=== PATIENT | male | born 1930 | race Asian ===

== ENCOUNTER 2017-04-29 18:04 | Inpatient (IN) | payer MEDICARE, BC ==
[2017-04-28 22:50] VITALS: RESP 20
[2017-04-29] VITALS (9 sets, daily range): BP systolic 48–141; BP diastolic 35–93; PULSE 71–101; RESP 0–23; TEMP 97.9; Ht 172.7 cm; Wt 63.4 kg
[~2017-04-29] VITALS: Ht 172.7 cm; Wt 63.4 kg
[~2017-04-29 18:04] MED LIST: ALLO100T PO; AMIODARONE 150 MG INJ ONE; AMLO-218 PO; AMOX250S25 PO; ASPI-664 PO; ATOR40TA68 PO; AZOP1OP10 OP; CARV6.25 PO; COLC0.6T6 PO; COMBIG5 OP; ETOMIDATE 20 MG INJ ONE; FLUT16SP24 NASAL; FOLI-49 PO; Hydrocodone Bit/Acetaminophen PO; ISOS30TA5 PO; LATA2.5D9 OP; LORA10TA3 PO; LOSA50TA6 PO; NA BICARBONATE 8.4% 50 ML SYG ONE; NEPH PO; PANT40TA3 PO; ROCURONIUM 50 MG INJ ONE; SEVE800T7 PO
[2017-04-29] MEDS ORDERED: ONDANSETRON 4 MG INJ IV STA (18:08)
[2017-04-29] MEDS ORDERED: CA CHLORIDE 10% 10 ML SYRINGE IV STA (18:08)
[2017-04-29] MEDS ORDERED: morphine 4 MG/ML VIAL IV STA (18:08)
[2017-04-29] MEDS ORDERED: NA BICARBONATE 8.4% 50 ML SYG IV STA (18:08)
[2017-04-29] MEDS ORDERED: AMIODARONE 900MG/D5W DRIP 500 ML IV STA ×2 (18:18→19:59)
[2017-04-29] MEDS ORDERED: AMIODARONE 150MG/D5W BOLUS IV* STA (18:18)
[2017-04-29] MEDS ORDERED: ETOMIDATE 20 MG INJ IV ONE (18:30)
[2017-04-29] MEDS ORDERED: DOXA2TAB PO (18:42)
[2017-04-29] MEDS ORDERED: TOPI50TA86 PO (18:42)
[2017-04-29] MEDS ORDERED: SODIUM CHLORIDE 0.9% 1L BAG IV* STA (19:35)
--- NOTE | 2017-04-29 19:55 | RADRPT ---
PROCEDURE: XR Chest. CLINICAL INDICATION: Chest pain. TECHNIQUE: Single frontal view of the chest. COMPARISON: 03/04/2015. FINDINGS: Cardiomegaly with atherosclerotic calcifications in the thoracic aorta. Left lung base retrocardiac opacity, suggesting atelectasis versus airspace disease versus pleural effusion, with central and le ft lower thorax transcutaneous cardiac pacing pads. No signs of pneumothorax are seen. The osseous s tructures and soft tissues are unremarkable. IMPRESSION: 1. Cardiomegaly. 2. Left retrocardiac opacity, suggesting atelectasis versus airspace disease versus pleural effusion . 3. Right lung is clear. RPTAT: [facility]U Physician Misael Date Time Electronically viewed and signed by Physician Misael on 04/29/2017 19:55 RS/
[2017-04-29 19:56] LABS: BASOPHILS % 0.1 % (0.0-2.0); EOSINOPHILS # 0.1 10^3/ul (0.0-0.5); EOSINOPHILS % 0.9 % (0.0-7.0); HEMATOCRIT 30.9 % (42.0-52.0); HEMOGLOBIN 9.7 g/dl (14.0-18.0); LYMPHOCYTES # 0.9 10^3/ul (0.8-2.9); LYMPHOCYTES % 10.7 % (15.0-51.0); MEAN CORPUSCULAR HEMOGLOBIN 33.3 pg (29.0-33.0); MEAN CORPUSCULAR HGB CONC 31.4 g/dl (32.0-37.0); MEAN CORPUSCULAR VOLUME 106.2 fl (82.0-101.0); MEAN PLATELET VOLUME 11.1 fl (7.4-10.4); MONOCYTE # 0.5 10^3/ul (0.3-0.9); MONOCYTES % 5.6 % (0.0-11.0); NEUTROPHIL # 6.7 10^3/ul (1.6-7.5); NEUTROPHILS % 82.1 % (39.0-77.0); PLATELET COUNT 101 10^3/UL (140-415); RED BLOOD COUNT 2.91 10^6/ul (4.70-6.10); WHITE BLOOD COUNT 8.2 10^3/ul (4.8-10.8)
[2017-04-29] MEDS ORDERED: ZOLPIDEM 5 MG TAB PO PRN (20:00)
[2017-04-29] MEDS ORDERED: NITROGLYCERIN (SL) 0.4 MG TAB SL PRN (20:00)
[2017-04-29] MEDS: SOD CHLORIDE 0.9% 1,000 ML IV SCH (20:00)
[2017-04-29] MEDS ORDERED: ACETAMINOPHEN 325 MG TAB PO PRN (20:00)
[2017-04-29] MEDS ORDERED: HYDROCODONE/APAP (5/325) TAB PO PRN (20:00)
[2017-04-29] MEDS ORDERED: BISACODYL (EC) 5 MG TAB PO PRN (20:00)
[2017-04-29] MEDS ORDERED: DOCUSATE SODIUM 100 MG CAP PO PRN (20:00)
[2017-04-29 20:14] LABS: ALBUMIN 3.7 g/dl (3.3-4.9); ALBUMIN/GLOBULIN RATIO 1.23; BILIRUBIN,INDIRECT 0.3 mg/dl (0-1.1); BILIRUBIN,TOTAL 0.3 mg/dl (0.2-1.3); CALCIUM 10.5 mg/dl (8.4-10.2); CREATININE 6.35 mg/dl (0.61-1.24); POTASSIUM 4.5 mmol/L (3.5-5.1); TOTAL PROTEIN 6.7 g/dl (6.1-8.1)
[2017-04-29 20:20] LABS: MAGNESIUM 1.9 mg/dl (1.7-2.5)
[2017-04-29 20:28] LABS: INR 0.98
[2017-04-29 20:29] LABS: PARTIAL THROMBOPLASTIN TIME 35.6 Sec (25.0-35.0)
[2017-04-29] MEDS ORDERED: CEFTRIAXONE 1 GM/50 ML (PMX) 50 ML IVPB ONE (20:30)
[2017-04-29] MEDS ORDERED: ASPIRIN 325 MG TAB PO ONE (20:30)
[2017-04-29] MEDS ORDERED: ASPIRIN 300 MG SUPP PR ONE (21:00)
[2017-04-29 22:28] LABS: AADO2 Arterial 557.5 mmHg (7.0-24.0); Allen Test ACCEPTAB; Arterial Base Excess -3.2 mmol/L (-3.0-3); Arterial COHb 0.3 % (0.0-3.0); Arterial Fraction of Oxyhgb 85.4 % (93.0-99.0); Arterial HCO3 27.5 mmol/L (22.0-26.0); Arterial MetHb 0.2 % (0.0-1.5); Arterial Total Hemglobin 11.4 g/dl (12.0-18.0); MODE MASK - NRB
--- NOTE | 2017-04-29 22:35 | RADRPT ---
PROCEDURE: CT ABDOMEN/PELVIS WITHOUT CONTRAST CLINICAL INDICATION: 87-year-old male with abdominal pain and vomiting. TECHNIQUE: The [facility] was performed [facility]. Direct axia l sections were obtained through the abdomen and pelvis without the use of intravenous contrast mate rial. Sagittal and coronal reformations were obtained. One or more of the following dose reduction t echniques were utilized: automated exposure control, adjustment of the mA and/or kV according to pat ient's size or use of iterative reconstruction technique. The images were reviewed on a PACS workst [employer]. CTD/vol = 8.1 mGy; Total Exam DLP = 472.4 mGy-cm. COMPARISON: None. FINDINGS: The inferior aspect of a median sternotomy is noted. Mild cardiomegaly is present. Coronary artery c alcifications are visualized. There are patchy airspace infiltrates within the right lung base. The re is left lower lobe consolidation with air bronchograms present. There is trace left pleural effus ion. There is minimal free fluid surrounding the right lobe of the liver. The liver has a normal siz e and contour without focal areas of abnormal density. No intrahepatic nor extrahepatic biliary duct al dilatation is seen. The gallbladder is distended and contains small calcified gallstone with diff use gallbladder wall thickening measuring up to 5.7 mm. The pancreas is atrophic but without areas o f abnormal attenuation. The spleen is identified and has a normal size without abnormal density. Th e adrenal glands are unremarkable. The kidneys are atrophic bilaterally. Bilateral renal cysts are p resent. The largest cyst on the right side is within the right mid kidney measures 3.8 x 3.9 cm in axial image 3- 84. There is a right lower pole renal cortical cyst measuring approximately 1.8 x 1.7 cm. There is a third right upper pole renal cyst measuring approximately 10 x 11 mm. The largest cy st on the left side is in the left mid kidney measuring approximately 3.1 x 3.0 cm on axial image 3- 66. There is an exophytic elongated left lower pole renal cyst measuring approximately 3.8 x 1.8 x 1 .6 cm. No hydroureteronephrosis nor nephroureterolithiasis is evident. The urinary bladder is contra cted with a diffusely thickened wall measuring up to 12 mm. There is no evidence for bowel obstructi on with retained stool in the rectosigmoid region. There appears to be smooth appearance to the colo n with loss of the haustral suggestive of chronic cathartic use. Small diverticula seen within the s igmoid colon without surrounding inflammatory changes. The appendix is distended with air but withou t abnormal thickening or surrounding inflammatory reaction. There is a right femoral venous line in place. The aortoiliac vessels are diffusely calcified and ectatic but without aneurysmal dilatation. Degenerative changes are present throughout the spine. IMPRESSION: 1. Status post median sternotomy with cardiomegaly. 2. Patchy airspace right lung base infiltrates. 3. Left lower lobe consolidation with air bronchograms and trace left pleural effusion. 4. Distended gallbladder with cholelithiasis and thickened gallbladder wall. 5. Minimal free fluid surrounding the right lobe of the liver. 6. Bilaterally atrophic kidneys with multiple cysts without obstructive uropathy. 7. Decompressed urinary bladder with thickened wall. 8. Minimal sigmoid diverticulosis. 9. Right femoral venous line. 10. Vascular calcifications. 11. Degenerative changes throughout the spine. .Vini Altamirano MD, MD Date Time Electronically viewed and signed by .Vini Altamirano MD, MD on 04/29/2017 22:35 .M/
--- NOTE | 2017-04-29 22:52 | QN ---
Documentation Comment Endotracheal Intubation by me: Pre assessment performed. Pre-oxygenation performed with 100% oxygen RSI: Performed w/o complication or hypoxic events. Medications as ordered. Blade: MAC 4 Glidescope ET Tube: 7.5 cm Depth: 22 at the lip Intubation confirmed by colorimetric CO2, equal breath sounds, quiet over the stomach. Chest x-ray pending. MAKENZIE CEE MD Apr 29, 2017 22:52
--- NOTE | 2017-04-29 22:59 | QN ---
Documentation Comment [id number] YENNY WINSTON MD Apr 29, 2017 22:59
[2017-04-29] MEDS: PROPOFOL 100 ML IV SCH (23:00)
[2017-04-29] MEDS ORDERED: NORepinephrine 8MG/250 ML (PMX 250 ML ONE (23:00)
[2017-04-29] MEDS ORDERED: NORepinephrine 8MG/250 ML (PMX 250 ML IV SCH (23:00)
--- NOTE | 2017-04-29 23:01 | ERA ---
ER Documentation Chief Complaint Date/Time DATE: 04/29/17 TIME: 22:53 Chief Complaint BROUGHT IN VIA EMS DUE TO V TACH ON MONITOR HPI Patient is an 87-year-old male with coronary disease dialysis who presents with chest pain as well as nausea and vomiting. He was brought in by ambulance. The paramedics said that he was in SVT and he was given 6 mg of adenosine which did not change his rhythm. He did have dialysis yesterday. Please note the history and physical exam is limited secondary to the patient's vomiting at this time. ROS All systems reviewed and are negative except as per history of present illness. Medications Home Meds Reported Medications Doxazosin Mesylate* (Doxazosin Mesylate*) 2 Mg Tablet, 2 MG PO DAILY, TAB 04/29/17 Topiramate* (Topiramate*) 50 Mg Tablet, 50 MG PO DAILY, TAB 04/29/17 Pantoprazole* (Protonix*) 40 Mg Tablet.dr, 40 MG PO DAILY, TAB 07/23/14 Losartan Potassium* (Losartan Potassium*) 50 Mg Tablet, 50 MG PO DAILY, TAB 07/23/14 Folic Acid* (Folic Acid*) 1 Mg Tablet, 1 MG PO DAILY, TAB 07/23/14 Discontinued Reported Medications Sevelamer Carbonate* (Renvela*) 800 Mg Tablet, 0.8 GM PO WITH MEALS, TAB 03/04/15 Multivit/Ca Carb/B Cmplx/Fa* (Manju-Manuela*) 1 Tab Tab, 1 TAB PO DAILY, TAB 03/04/15 Brinzolamide* (Azopt*) 1%-5 Ml Drops.susp, 1 DROP OP AFFECTED EYE(S) TID, BOTTLE 07/23/14 Brimonidine/Timolol* (Combigan*) 5 Ml Drops, 1 DROP OP AFFECTED EYE(S) BID, BOTTLE 07/23/14 Latanoprost (Xalatan) 2.5 Ml Drops, 1 DROP OP AFFECTED EYE(S) QHS 07/23/14 Aspirin* (Aspirin* (EC)) 81 Mg Tablet.dr, 81 MG PO DAILY, TAB 07/23/14 Colchicine* (Colcrys*) 0.6 Mg Tablet, 0.6 MG PO DAILY, TAB 07/23/14 Isosorbide Mononitrate* (Isosorbide Mononitrate*) 30 Mg Tab.er.24h, 30 MG PO DAILY, TAB 07/23/14 Carvedilol* (Coreg*) 6.25 Mg Tablet, 6.25 MG PO DAILY, TAB 07/23/14 Allopurinol* (Allopurinol*) 100 Mg Tablet, 100 MG PO DAILY, TAB 07/23/14 Atorvastatin* (Atorvastatin*) 40 Mg Tablet, 40 MG PO HS, TAB 07/23/14 Discontinued Scripts Amoxicillin/Clavulanate K* (Augmentin* Susp) 50 Mg/Ml Susp, 500 MG PO Q24H, #14 TAB Prov:DELLA DELUNA MD 03/07/15 Loratadine* (Loratadine*) 10 Mg Tablet, 10 MG PO DAILY, #30 TAB Prov:DELLA DELUNA MD 03/07/15 Fluticasone Propionate* (Flonase* Nasal) 50 Mcg/[place] - 16 Gm [place].susp, 1 SPRAY NASAL BID, #1 SPRAY (TO EACH NOSTRIL) Prov:DELLA DELUNA MD 03/07/15 [Hydrocodone Bit/Acetaminophen] 1 TAB TAB No Conflict Check, 1 TAB PO Q6H Y for MODERATE PAIN LEVEL 4-6, #30 TAB Prov:DELLA DELUNA MD 03/07/15 Amlodipine Besylate* (Norvasc*) 10 Mg Tablet, 10 MG PO BID, #120 TAB Prov:SHERIF PAK MD 07/24/14 Allergies Allergies: Coded Allergies: No Known Allergy (Verified , 04/29/17) PMhx/Soc Anesthesia Reaction: No Hx Neurological Disorder: No Hx Respiratory Disorders: No Hx Cardiac Disorders: Yes (CABG with stent placement; CAD) Hx Psychiatric Problems: No Hx Miscellaneous Medical Probl: Yes Hx Alcohol Use: No (occassionally a sip) Hx Substance Use: No Hx Tobacco Use: Yes ( 40 years ago) Smoking Status: Never smoker FmHx Unable to obtain Physical Exam Vitals Vital Signs Date Time Temp Pulse Resp B/P Pulse Ox O2 Delivery O2 Flow Rate FiO2 04/29/17 19:20 98.0 94 28 105/76 100 Non Rebreather 15.0 94 04/29/17 18:20 97.6 95 25 108/95 100 Non Rebreather 15.0 04/29/17 18:10 Non Rebreather 15 04/29/17 18:10 97.6 222 20 76/52 96 Physical Exam Const: Severe distress Head: Atraumatic Eyes: Normal Conjunctiva ENT: Normal External Ears, Nose and Mouth. Neck: Full range of motion..~ No meningismus. Resp: Clear to auscultation bilaterally Cardio: Tachycardic rate without murmur, tachycardia at 220 Abd: Soft, non tender, non distended. Normal bowel sounds Skin: Pale skin Back: No midline or flank tenderness Ext: No cyanosis, or edema Neur: Awake But confused Result Diagram: 04/29/17192904/29/171929 Results 24 hrs Laboratory Tests Test 04/29/17 19:30 White Blood Count 8.210^3/ul Red Blood Count 2.9110^6/ul Hemoglobin 9.7g/dl Hematocrit 30.9% Mean Corpuscular Volume 106.2fl Mean Corpuscular Hemoglobin 33.3pg Mean Corpuscular Hemoglobin Concent 31.4g/dl Red Cell Distribution Width 15.0% Platelet Count 15444^3/UL Mean Platelet Volume 11.1fl Neutrophils % 82.1% Lymphocytes % 10.7% Monocytes % 5.6% Eosinophils % 0.9% Basophils % 0.1% Nucleated Red Blood Cells % 0.0/100WBC Neutrophils # 6.710^3/ul Lymphocytes # 0.910^3/ul Monocytes # 0.510^3/ul Eosinophils # 0.110^3/ul Basophils # 0.010^3/ul Nucleated Red Blood Cells # 0.010^3/ul Prothrombin Time 13.0Sec Prothrombin Time Ratio 1.0 INR International Normalized Ratio 0.98 Activated Partial Thromboplast Time 35.6Sec Sodium Level 141mmol/L Potassium Level 4.5mmol/L Chloride Level 96mmol/L Carbon Dioxide Level 32mmol/L Anion Gap 18 Blood Urea Nitrogen 43mg/dl Creatinine 6.35mg/dl Glucose Level 136mg/dl Lactic Acid Level 4.1mmol/L Calcium Level 10.5mg/dl Magnesium Level 1.9mg/dl Total Bilirubin 0.3mg/dl Direct Bilirubin 0.00mg/dl Indirect Bilirubin 0.3mg/dl Aspartate Amino Transf (AST/SGOT) 151IU/L Alanine Aminotransferase (ALT/SGPT) 43IU/L Alkaline Phosphatase 90IU/L Troponin I 30.000ng/ml Total Protein 6.7g/dl Albumin 3.7g/dl Globulin 3.00g/dl Albumin/Globulin Ratio 1.23 Lipase 220U/L Current Medications Medications (Trade) Dose Ordered Sig/Hui Route PRN Reason Start Time Stop Time Status Last Admin Dose Admin Morphine Sulfate (morphine) 4 mg ONCE STAT IV 04/29/17 18:08 04/29/17 18:09 DC 04/29/17 19:58 Ondansetron HCl (Zofran Inj) 4 mg ONCE STAT IV 04/29/17 18:08 04/29/17 18:09 DC 04/29/17 19:58 Sodium Bicarbonate (Na Bicarb 8.4% Syg) 50 ml ONCE STAT IV 04/29/17 18:08 04/29/17 18:09 DC 04/29/17 19:52 Calcium Chloride (Ca Chloride 10% Syg) 1,000 mg ONCE STAT IV 04/29/17 18:08 04/29/17 18:09 DC 04/29/17 19:52 Etomidate (Amidate) 10 mg ONCE ONCE IV 04/29/17 18:30 04/29/17 18:31 DC 04/29/17 18:16 Amiodarone HCl 100 ml 100 ml ONCE STAT IV* 04/29/17 18:18 04/29/17 18:19 DC 04/29/17 18:18 Amiodarone HCl (Cordarone 900mg/ D5W Drip) 500 ml @ 0 mls/hr ONCE STAT IV 04/29/17 18:18 04/29/17 18:19 DC Procedures/MDM EKG #1 read by me: Rate/Rhythm: Ventricular tachycardia at a rate of 222 Intervals: Wide-complex QRS Impression: Ventricular tachycardia EKG #2 read by me: Rate/Rhythm: Sinus rhythm Intervals: Normal Impression: Successful cardioversion is patient now is in a sinus rhythm without ST elevations EKG #3 read by me: Rate/Rhythm: Regular rate and rhythm at a normal rate intervals: Normal Impression: No sign of ST elevations PROCEDURE: XR Chest. CLINICAL INDICATION: Chest pain. TECHNIQUE: Single frontal view of the chest. COMPARISON: 03/04/2015. FINDINGS: Cardiomegaly with atherosclerotic calcifications in the thoracic aorta. Left lung base retrocardiac opacity, suggesting atelectasis versus airspace disease versus pleural effusion, with central and left lower thorax transcutaneous cardiac pacing pads. No signs of pneumothorax are seen. The osseous structures and soft tissues are unremarkable. IMPRESSION: 1. Cardiomegaly. 2. Left retrocardiac opacity, suggesting atelectasis versus airspace disease versus pleural effusion. 3. Right lung is clear. RPTAT: [facility] Physician Misael Date Time Electronically viewed and signed by Physician Misael on 04/29/2017 19:55 PROCEDURE: CT ABDOMEN/PELVIS WITHOUT CONTRAST CLINICAL INDICATION: 87-year-old male with abdominal pain and vomiting. TECHNIQUE: The study was performed utilizing a [employer]T 64-slice CT scanner. Direct axial sections were obtained through the abdomen and pelvis without the use of intravenous contrast material. Sagittal and coronal reformations were obtained. One or more of the following dose reduction techniques were utilized: automated exposure control, adjustment of the mA and/ or kV according to patient's size or use of iterative reconstruction technique. The images were reviewed on a PACS workstation. CTD/vol = 8.1 mGy; Total Exam DLP = 472.4 mGy-cm. COMPARISON: None. FINDINGS: The inferior aspect of a median sternotomy is noted. Mild cardiomegaly is present. Coronary artery calcifications are visualized. There are patchy airspace infiltrates within the right lung base. There is left lower lobe consolidation with air bronchograms present. There is trace left pleural effusion. There is minimal free fluid surrounding the right lobe of the liver. The liver has a normal size and contour without focal areas of abnormal density. No intrahepatic nor extrahepatic biliary ductal dilatation is seen. The gallbladder is distended and contains small calcified gallstone with diffuse gallbladder wall thickening measuring up to 5.7 mm. The pancreas is atrophic but without areas of abnormal attenuation. The spleen is identified and has a normal size without abnormal density. The adrenal glands are unremarkable. The kidneys are atrophic bilaterally. Bilateral renal cysts are present. The largest cyst on the right side is within the right mid kidney measures 3.8 x 3.9 cm in axial image 3- 84. There is a right lower pole renal cortical cyst measuring approximately 1.8 x 1.7 cm. There is a third right upper pole renal cyst measuring approximately 10 x 11 mm. The largest cyst on the left side is in the left mid kidney measuring approximately 3.1 x 3.0 cm on axial image 3-66. There is an exophytic elongated left lower pole renal cyst measuring approximately 3.8 x 1.8 x 1.6 cm. No hydroureteronephrosis nor nephroureterolithiasis is evident. The urinary bladder is contracted with a diffusely thickened wall measuring up to 12 mm. There is no evidence for bowel obstruction with retained stool in the rectosigmoid region. There appears to be smooth appearance to the colon with loss of the haustral suggestive of chronic cathartic use. Small diverticula seen within the sigmoid colon without surrounding inflammatory changes. The appendix is distended with air but without abnormal thickening or surrounding inflammatory reaction. There is a right femoral venous line in place. The aortoiliac vessels are diffusely calcified and ectatic but without aneurysmal dilatation. Degenerative changes are present throughout the spine. IMPRESSION: 1. Status post median sternotomy with cardiomegaly. 2. Patchy airspace right lung base infiltrates. 3. Left lower lobe consolidation with air bronchograms and trace left pleural effusion. 4. Distended gallbladder with cholelithiasis and thickened gallbladder wall. 5. Minimal free fluid surrounding the right lobe of the liver. 6. Bilaterally atrophic kidneys with multiple cysts without obstructive uropathy. 7. Decompressed urinary bladder with thickened wall. 8. Minimal sigmoid diverticulosis. 9. Right femoral venous line. 10. Vascular calcifications. 11. Degenerative changes throughout the spine. .Vini Altamirano MD, MD Date Time Electronically viewed and signed by .Vini Altamirano MD, on 04/29/2017 22:35 Admit MDM: Patient's infectious symptoms have not stabilized and the patient is at risk of rapid decompensation. The patient will be admitted for careful hydration, antibiotic therapy, and infectious source control. Severe Sepsis criteria: Infectious source: Pneumonia and possible cholecystitis End organ damage indicated by: Lactate greater than 2 Sepsis Management: Time of recognition of sepsis: When lactic acid was found to be greater than 4 Within 3 hours of recognition: Blood cultures x 2 before broad-spectrum antibiotics: Yes 30 ml/kg NS bolus Completed Initial lactate greater than 4 Repeat lactate pending Time of recognition of septic shock: At time of initial lactic acid returned 4.1 Septic Shock Assessment: Any lactic acid > 4.0 yes Persistent hypotension (SBP < 90 or 40 mmHg drop, MAP < 65) despite 30 mL/kg IV fluid bolus No Volume Re-assessment for Septic Shock (post 30 ml/kg bolus): Heart Regular rate & rhythm Lungs No crackles Skin pale skin cap Refill Less than 2 seconds Peripheral pulses Radially present Persistent Hypotension Treatment: Comfort care No Central line right femoral line Vasopressor started Not required I considered further perfusion assessment with CVP measurement, SCVO2, bedside ultrasound volume assessment, passive leg raise, trial of further fluid bolus. And proceeded with 30 ml/kg fluid bolus of NSS, broad spectrum antibiotics, and admission. The patient also required defibrillation upon immediate arrival to the emergency department as he was unstable and in ventricular tachycardia. He was given etomidate 10 mg IV for sedation and then shocked at 200 J. This put him into a sinus rhythm. He was given a bolus of amiodarone of 150 mg and then started on amiodarone drip to prevent ventricular tachycardia. He was given aspirin when his troponin was found to be positive. The patient is critically ill and will need admission to the intensive care unit. His prognosis is poor given his age and comorbidities as well as his elevated lactic acid and troponin levels. Accepting Care Team Current data and ongoing care discussed. Admitting Physician: Dr. Burnham Digitizer Operator(s): Dr. Dejesus from cardiology Outstanding Data: Culture results and repeat lactic acid Critical Care: Critical care time 45 minutes excluding all billable procedures Emergent fluid management while maintaining close respiratory support. Provision of immediate and broad-spectrum antibiotic therapy. Simultaneous assessment for possible sources in order to direct targeted therapy. Consideration for invasive and chemical support to prevent cardiopulmonary collapse. Defibrillation: Patient required defibrillation during the CODE BLUE Technique: Biphasic defibrillation at 200 J for ventricular tachycardia Central Line Placement by me: Patient consented, sterilely draped, full prep, gown, glove, mask, time out performed. Anesthesia: 1% lidocaine locally Location: Right femoral Device: Multiple lumen Technique: Seldinger technique. Secured with suture. Results: Venous return from all ports with easy saline flush. No complications. Guide wire retrieved and disposed of. ED Ultrasound: Central line placed by me using concurrent ultrasound guidance. Real time image archived in the medical record confirms vascular anatomy. Departure Diagnosis: Primary Impression: NSTEMI (non-ST elevated myocardial infarction) Additional Impression: Ventricular tachycardia Condition: Critical MAKENZIE CEE MD Apr 29, 2017 23:01
[2017-04-30] VITALS (97 sets, daily range): BP systolic 70–158; BP diastolic 39–85; PULSE 64–102; RESP 17–43
--- NOTE | 2017-04-30 00:54 | RADRPT ---
PROCEDURE: XR Chest. CLINICAL INDICATION: Intubation. TECHNIQUE: Single AP portable chest. COMPARISON: 03/04/2015 Chest x-ray FINDINGS: The cardiomediastinal silhouette is within normal limits of size. Endotracheal tube tip 8 cm above t he jerry. NG tube tip overlying the body of the stomach. Sternotomy wires in place. Right base opac ity suggestive of pleural effusion with trace left pleural effusion. Atherosclerotic calcification of the aorta. No pneumothorax. IMPRESSION: 1. Endotracheal tube tip 8 cm above the jerry. 2.. Support devices in stable and satisfactory position. A 38 bilateral pleural effusions right grea ter than left. RPTAT:AAJJ Physician Jean Paul Date Time Electronically viewed and signed by Physician Jean Paul on 04/30/2017 00:54 KHANH/
[2017-04-30] MEDS: SOD CHLORIDE 0.9% 1,000 ML IV SCH ×2 (01:13→10:36)
[2017-04-30] MEDS ORDERED: ALBUTEROL/IPRATROPIUM (NEB) 3 ML AMP HHN SCH (02:00)
[2017-04-30] MEDS: IPRATROPIUM (HFA) 12.9 GM INHALER INH SCH ×4 (04:38→20:59)
[2017-04-30] MEDS: ALBUTEROL 18 GM INHALER INH SCH ×4 (05:22→20:59)
[2017-04-30] MEDS: PIPER-TAZO 2.25 GM (PMX) 50 ML IVPB SCH ×3 (05:32→21:30)
[2017-04-30] MEDS: METHYLPREDNISOLONE 40 MG INJ IV SCH ×3 (05:33→21:30)
[2017-04-30] MEDS ORDERED: PANTOPRAZOLE 40 MG INJ IV SCH (06:00)
[2017-04-30 06:15] LABS: ABNORMAL IP MESSAGE 1; HEMATOCRIT 33.1 % (42.0-52.0); HEMOGLOBIN 10.3 g/dl (14.0-18.0); MEAN CORPUSCULAR HEMOGLOBIN 34.3 pg (29.0-33.0); MEAN CORPUSCULAR HGB CONC 31.1 g/dl (32.0-37.0); MEAN CORPUSCULAR VOLUME 110.3 fl (82.0-101.0); MEAN PLATELET VOLUME 11.2 fl (7.4-10.4); PLATELET COUNT 116 10^3/UL (140-415); POSITIVE DIFF @See below; RED CELL DISTRIBUTION WIDTH 14.8 % (11.5-14.5)
[2017-04-30 06:39] LABS: ALBUMIN/GLOBULIN RATIO 1.15; BILIRUBIN,INDIRECT 0.2 mg/dl (0-1.1); BILIRUBIN,TOTAL 0.2 mg/dl (0.2-1.3); CALCIUM 8.7 mg/dl (8.4-10.2); CHOL/HDL RATIO 4.6 RATIO; CREATININE 6.94 mg/dl (0.61-1.24); POTASSIUM 3.6 mmol/L (3.5-5.1); TOTAL PROTEIN 5.6 g/dl (6.1-8.1)
[2017-04-30] MEDS: PHENYLephrine 40 MG in DEXTROSE 5% 496 ML IV SCH ×3 (06:58→15:43)
[2017-04-30] MEDS ORDERED: PANTOPRAZOLE (EC) 40 MG TAB PO SCH (09:00)
[2017-04-30] MEDS ORDERED: ENOXAPARIN 30 MG/0.3 ML SYG SC SCH (09:00)
[2017-04-30 09:04] LABS: Allen Test ACCEPTAB; Arterial Base Excess -7.2 mmol/L (-3.0-3); Arterial COHb 0.2 % (0.0-3.0); Arterial Fraction of Oxyhgb 94.5 % (93.0-99.0); Arterial HCO3 21.3 mmol/L (22.0-26.0); Arterial MetHb 0.2 % (0.0-1.5); Arterial Total Hemglobin 12.1 g/dl (12.0-18.0); MODE VENT - AC
[2017-04-30 09:10] LABS: BURR CELLS 1+ (0-0); ERYTHROBLAST% (NRBC) (M) 1 % (0-0); GIANT THROMBO% (M) 5 % (0-0); HYPOCHROMASIA 1+ (0-0); METAMYELOCYTES %M 13 % (0-0); MONOCYTES % (M) 10 % (0-11); MYELOCYTES % (M) 1 % (0-0); PLATELET ESTIMATE DECREASED; POIKILOCYTOSIS 1+ (0-0)
[2017-04-30] MEDS: FOLIC ACID 1 MG TAB PO SCH (09:15)
[2017-04-30] MEDS: ASPIRIN 325 MG TAB PO SCH (09:15)
[2017-04-30 10:37] LABS: AADO2 Arterial 567.7 mmHg (7.0-24.0); Allen Test ACCEPTAB; Arterial Base Excess -11.5 mmol/L (-3.0-3); Arterial COHb 0.2 % (0.0-3.0); Arterial Fraction of Oxyhgb 87.1 % (93.0-99.0); Arterial HCO3 19.7 mmol/L (22.0-26.0); Arterial MetHb 0.2 % (0.0-1.5); Arterial Total Hemglobin 12.1 g/dl (12.0-18.0); MODE VENT - AC
[2017-04-30] MEDS: PROPOFOL 100 ML IV SCH ×2 (11:00→23:00)
[2017-04-30] MEDS ORDERED: DOBUTamine/D5W 1 MG/ML DRIP 250 ML ONE (12:42)
[2017-04-30] MEDS ORDERED: HEPARIN 1000 UNITS/ML 10 ML INJ IV ONE (13:00)
[2017-04-30] MEDS ORDERED: HEPARIN 25000 UNITS/250 ML 250 ML IV SCH (13:00)
[2017-04-30] MEDS ORDERED: HEPARIN 1000 UNITS/ML 10 ML INJ IV PRN (13:00)
--- NOTE | 2017-04-30 13:21 | CONS ---
Date/Time of Note Date/Time of Note DATE: 04/30/17 TIME: 13:18 Assessment/Plan Assessment/Plan Additional Assessment/Plan 87 yo with HTN, CAD, CABG 1988 4V -0 per family, negative stress test 2 weeks ago - now with VT arrest and high troponin - I suspect cardiogenic shock. I spokewith Dr. Vo (primary cardiology) and Dr. Diop - all agree to proceed to [facility], likely IABP - high risk procedure, family aware - full note dictated - # [id number] Consultation Date/Type/Reason Admit Date/Time Apr 29, 2017 at 19:31 Initial Consult Date Exam/Review of Systems Vital Signs Vitals Vital Signs Date Time Temp Pulse Resp B/P Pulse Ox O2 Delivery O2 Flow Rate FiO2 04/30/17 12:15 68 30 97 100 04/30/17 11:45 87/53 04/30/17 11:00 Mechanical Ventilator 04/30/17 08:00 99.6 04/29/17 20:16 15.0 Intake and Output 04/29/17 04/29/17 04/30/17 15:00 23:00 07:00 Intake Total 698.52 ml Output Total 100 ml Balance 598.52 ml Results Result Diagram: 04/30/17 0549 04/30/17 0549 Results 24 hrs Laboratory Tests Test 04/29/17 19:30 04/29/17 22:05 04/29/17 22:21 04/29/17 22:35 White Blood Count 8.2 Red Blood Count 2.91 L Hemoglobin 9.7 L Hematocrit 30.9 L Mean Corpuscular Volume 106.2 H Mean Corpuscular Hemoglobin 33.3 H Mean Corpuscular Hemoglobin Concent 31.4 L Red Cell Distribution Width 15.0 H Platelet Count 101 L Mean Platelet Volume 11.1 #H Neutrophils % 82.1 H Lymphocytes % 10.7 L Monocytes % 5.6 Eosinophils % 0.9 Basophils % 0.1 Nucleated Red Blood Cells % 0.0 Neutrophils # 6.7 Lymphocytes # 0.9 Monocytes # 0.5 Eosinophils # 0.1 Basophils # 0.0 Nucleated Red Blood Cells # 0.0 Prothrombin Time 13.0 Prothrombin Time Ratio 1.0 INR International Normalized Ratio 0.98 Activated Partial Thromboplast Time 35.6 H Sodium Level 141 Potassium Level 4.5 Chloride Level 96 L Carbon Dioxide Level 32 H Anion Gap 18 H Blood Urea Nitrogen 43 H Creatinine 6.35 H Glucose Level 136 Lactic Acid Level 4.1 *H 6.6 *H Calcium Level 10.5 H Magnesium Level 1.9 Total Bilirubin 0.3 Direct Bilirubin 0.00 Indirect Bilirubin 0.3 Aspartate Amino Transf (AST/SGOT) 151 H Alanine Aminotransferase (ALT/SGPT) 43 Alkaline Phosphatase 90 Troponin I 30.000 *H 75.700 *H Total Protein 6.7 Albumin 3.7 Globulin 3.00 Albumin/Globulin Ratio 1.23 Lipase 220 Blood Gas Specimen Source Blood arterial Arterial Blood Date Drawn 04/29/2017 10:10:42 PM Arterial Blood pH (Temp corrected) 7.129 *L Arterial Blood pCO2 (Temp correct) 84.7 *H Arterial Blood pO2 (Temp corrected) 70.8 L Arterial Blood HCO3 27.5 H Arterial Blood Base Excess -3.2 L Arterial Blood Oxygen Saturation 85.8 L Hunter Test ACCEPTAB Arterial Blood Gas Puncture Site Right Radial Arterial Blood Carboxyhemoglobin 0.3 Arterial Blood Methemoglobin 0.2 Blood Gas A-a O2 Differential 557.5 H Oxyhemoglobin Percent 85.4 L Total Hemoglobin 11.4 L Blood Gas Temperature 37.0 Blood Gas Modality MASK - NRB FiO2 100.0 Blood Gas Critical Value Read Back U DES RT Blood Gas Notified Whom Blood Gas Notified Time 04/29/2017 10:26:31 PM Bedside Glucose 236 H Test 04/29/17 23:15 04/30/17 00:33 04/30/17 05:49 04/30/17 08:00 Blood Gas Specimen Source Blood arterial Blood arterial Arterial Blood Date Drawn 04/30/2017 12:00:08 AM 04/30/2017 10:29:22 AM Arterial Blood pH (Temp corrected) 7.195 *L 7.050 *L Arterial Blood pCO2 (Temp correct) 56.3 H 73.0 H Arterial Blood pO2 (Temp corrected) 96.7 H 72.3 L Arterial Blood HCO3 21.3 L 19.7 L Arterial Blood Base Excess -7.2 L -11.5 L Arterial Blood Oxygen Saturation 94.9 L 87.4 L Hunter Test ACCEPTAB ACCEPTAB Arterial Blood Gas Puncture Site Right Radial Right Radial Arterial Blood Carboxyhemoglobin 0.2 0.2 Arterial Blood Methemoglobin 0.2 0.2 Blood Gas A-a O2 Differential 560.0 H 567.7 H Oxyhemoglobin Percent 94.5 87.1 L Total Hemoglobin 12.1 12.1 Blood Gas Temperature 37.0 37.0 Blood Gas Respiration Rate 20.0 20.0 Blood Gas Actual Respiration Rate 20 20 Blood Gas Modality VENT - AC VENT - AC FiO2 100.0 100.0 Blood Gas Tidal Volume 500.0 550.0 Blood Gas Low PEEP Setting 5.0 Blood Gas Critical Value Read Back Mahi LYNNE RN Dominique GÓMEZ RN Blood Gas Notified Whom UP TM Blood Gas Notified Time 04/30/2017 12:20:46 AM 04/30/2017 10:37:35 AM Lactic Acid Level 7.9 *H Creatine Kinase 2117 H 1577 H Creatine Kinase Index 11.3 15.0 Creatinine Kinase MB (Mass) 239.00 H 237.00 H Troponin I 137.000 *H 152.000 *H White Blood Count 2.0 #L Red Blood Count 3.00 L Hemoglobin 10.3 L Hematocrit 33.1 L Mean Corpuscular Volume 110.3 H Mean Corpuscular Hemoglobin 34.3 H Mean Corpuscular Hemoglobin Concent 31.1 L Red Cell Distribution Width 14.8 H Platelet Count 116 L Mean Platelet Volume 11.2 H Neutrophils % Segmented Neutrophils % (Manual) 23 L Band Neutrophils % (Manual) 11 H Lymphocytes % Lymphocytes % (Manual) 43 Monocytes % Monocytes % (Manual) 10 Eosinophils % Basophils % Metamyelocytes % (manual) 13 H Myelocytes % (Manual) 1 H Nucleated Red Blood Cells % 1 H Neutrophils # Neutrophils # (Manual) 0.5 L Band Neutrophils # 0.2 Absolute Lymphocytes (Manual) 0.8 Lymphocytes # Monocytes # Absolute Monocytes (Manual) 0.2 L Eosinophils # Basophils # Metamyelocytes # 0.2 H Myelocytes # 0.0 Nucleated Red Blood Cells # Platelet Estimate DECREASED Giant Platelets 5 H Hypochromasia 1+ Poikilocytosis 1+ Macrocytosis 1+ Sodium Level 142 Potassium Level 3.6 Chloride Level 100 Carbon Dioxide Level 25 Anion Gap 21 H Blood Urea Nitrogen 45 H Creatinine 6.94 H Glucose Level 114 Calcium Level 8.7 Total Bilirubin 0.2 Direct Bilirubin 0.00 Indirect Bilirubin 0.2 Aspartate Amino Transf (AST/SGOT) 270 #H Alanine Aminotransferase (ALT/SGPT) 58 Alkaline Phosphatase 68 Total Protein 5.6 #L Albumin 3.0 L Globulin 2.60 Albumin/Globulin Ratio 1.15 Triglycerides Level 100 Cholesterol Level 163 LDL Cholesterol, Calculated 108 HDL Cholesterol 35 Cholesterol/HDL Ratio 4.6 Test 04/30/17 12:06 Bedside Glucose 120 Medications Medications Current Medications Folic Acid 1 mg 1 mg DAILY PO Last administered on 04/30/17 09:15; Admin Dose 1 MG; Start 04/30/17 at 09:00 Sodium Chloride (NS) 1,000 ml @ 50 mls/hr Q20H IV Last administered on 10:36; Admin Dose 50 MLS/HR; Start 04/29/17 at 20:00 Ondansetron HCl (Zofran Inj) 4 mg Q6H PRN IV NAUSEA AND/OR VOMITING; Start at 20:00 Nitroglycerin (Nitroglycerin (Sl Tab) 0.4 Mg) 1 tab Q5M PRN SL CHEST PAIN; Start 04/29/17 at 20:00 Acetaminophen (Tylenol Liquid) 650 mg Q6H PRN PO PAIN LEVEL 1-3 OR FEVER; Start 04/29/17 at 20:00 Acetaminophen (Tylenol Tab) 650 mg Q6H PRN PO PAIN LEVEL 1-3 OR FEVER; Start at 20:00 Acetaminophen/ Hydrocodone Bitart (Boley (5/325)) 1 tab Q6H PRN PO PAIN LEVEL 4 -6; Start 04/29/17 at 20:00 Zolpidem Tartrate (Ambien) 5 mg QHS PRN PO INSOMNIA; Start 04/29/17 at 20:00 Docusate Sodium (Colace) 100 mg Q12H PRN PO CONSTIPATION; Start 04/29/17 at 20: 00 Bisacodyl (Dulcolax) 5 mg DAILY PRN PO CONSTIPATION; Start 04/29/17 at 20:00 Pantoprazole 40 mg 40 mg DAILY@06 IV Last administered on 04/30/17 05:33; Admin Dose 40 MG; Start 04/30/17 at 06:00 Piperacillin Sod/ Tazobactam Sod (Zosyn 2.25gm/ 50ml (Pmx)) 50 ml @ 100 mls/hr Q8 IVPB Last administered on 04/30/17 05:32; Admin Dose 100 MLS/HR; Start at 06:00 Methylprednisolone Sodium Succinate (Solu-Medrol) 40 mg Q8 IV Last administered on 04/30/17 05:33; Admin Dose 40 MG; Start 04/30/17 at 06:00 Aspirin 325 mg 325 mg DAILY PO Last administered on 04/30/17 09:15; Admin Dose 325 MG; Start 04/30/17 at 09:00 Propofol 100 ml @ 2.25 mls/hr Q12H IV ; Start 04/29/17 at 23:00 Norepinephrine 16 mg/Dextrose 500 ml @ 1.87 mls/hr TITRATE IV Last administered on 04/30/17 06:13; Admin Dose 56.25 MLS/HR; Start 04/30/17 at 09: 00 Phenylephrine HCl 40 mg/Dextrose 500 ml @ 75 mls/hr TITRATE IV Last administered on 04/30/17 06:58; Admin Dose 15 MLS/HR; Start 04/30/17 at 06:30 Vasopressin 60 unit/Dextrose 60 ml @ 1.2 mls/hr Q12H IV ; Start 04/30/17 at 13: 00 Dobutamine HCl/ Dextrose 250 ml @ 9.51 mls/hr TITRATE IV ; Start 04/30/17 at 13 :00 CANDACE CARTWRIGHT MD Apr 30, 2017 13:21
[2017-04-30 13:32] LABS: INR 1.43; PROTIME 17.5 Sec (12.2-14.2); PT RATIO 1.4
[2017-04-30 13:33] LABS: PARTIAL THROMBOPLASTIN TIME 60.4 Sec (25.0-35.0)
--- NOTE | 2017-04-30 13:37 | PN ---
Date/Time of Note Date/Time of Note DATE: 04/30/17 TIME: 13:34 Assessment/Plan VTE Prophylaxis VTE Prophylaxis Intervention: heparin (heparin) Lines/Catheters IV C[facility] Type [facility]from [facility] Central Line Central line still needed: Yes Urinary Cath still in place: No Assessment/Plan Chief Complaint/Hosp Course 1. cardiogenic shock 2. Dysphagia. 3. History of head and neck or laryngeal cancer. 4. 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 5. History of coronary artery disease, status post coronary artery bypass grafting. 6. hypertension 7. Problems: Assessment/Plan 1. Pending [facility] by dr Dejesus 2. Pr is on multiple drips 3. Continue critical care Subjective 24 Hr Interval Summary Subjective hx not possible: pt critical Exam/Review of Systems Vital Signs Vitals Vital Signs Date Time Temp Pulse Resp B/P Pulse Ox O2 Delivery O2 Flow Rate FiO2 04/30/17 12:15 68 30 97 100 04/30/17 11:45 87/53 04/30/17 11:00 Mechanical Ventilator 04/30/17 08:00 99.6 04/29/17 20:16 15.0 Intake and Output 04/29/17 04/29/17 04/30/17 15:00 23:00 07:00 Intake Total 698.52 ml Output Total 100 ml Balance 598.52 ml Exam Constitutional: alert, other (folleo commands) Head: normocephalic Respiratory: diminished breath sounds Cardiovascular: irregular rhythm Gastrointestinal: soft Genitourinary - Male: nl penis Results Result Diagram: 04/30/17 0549 04/30/17 0549 Results 24 hrs Laboratory Tests Test 04/29/17 19:30 04/29/17 22:05 04/29/17 22:21 04/29/17 22:35 White Blood Count 8.2 Red Blood Count 2.91 L Hemoglobin 9.7 L Hematocrit 30.9 L Mean Corpuscular Volume 106.2 H Mean Corpuscular Hemoglobin 33.3 H Mean Corpuscular Hemoglobin Concent 31.4 L Red Cell Distribution Width 15.0 H Platelet Count 101 L Mean Platelet Volume 11.1 #H Neutrophils % 82.1 H Lymphocytes % 10.7 L Monocytes % 5.6 Eosinophils % 0.9 Basophils % 0.1 Nucleated Red Blood Cells % 0.0 Neutrophils # 6.7 Lymphocytes # 0.9 Monocytes # 0.5 Eosinophils # 0.1 Basophils # 0.0 Nucleated Red Blood Cells # 0.0 Prothrombin Time 13.0 Prothrombin Time Ratio 1.0 INR International Normalized Ratio 0.98 Activated Partial Thromboplast Time 35.6 H Sodium Level 141 Potassium Level 4.5 Chloride Level 96 L Carbon Dioxide Level 32 H Anion Gap 18 H Blood Urea Nitrogen 43 H Creatinine 6.35 H Glucose Level 136 Lactic Acid Level 4.1 *H 6.6 *H Calcium Level 10.5 H Magnesium Level 1.9 Total Bilirubin 0.3 Direct Bilirubin 0.00 Indirect Bilirubin 0.3 Aspartate Amino Transf (AST/SGOT) 151 H Alanine Aminotransferase (ALT/SGPT) 43 Alkaline Phosphatase 90 Troponin I 30.000 *H 75.700 *H Total Protein 6.7 Albumin 3.7 Globulin 3.00 Albumin/Globulin Ratio 1.23 Lipase 220 Blood Gas Specimen Source Blood arterial Arterial Blood Date Drawn 04/29/2017 10:10:42 PM Arterial Blood pH (Temp corrected) 7.129 *L Arterial Blood pCO2 (Temp correct) 84.7 *H Arterial Blood pO2 (Temp corrected) 70.8 L Arterial Blood HCO3 27.5 H Arterial Blood Base Excess -3.2 L Arterial Blood Oxygen Saturation 85.8 L Hunter Test ACCEPTAB Arterial Blood Gas Puncture Site Right Radial Arterial Blood Carboxyhemoglobin 0.3 Arterial Blood Methemoglobin 0.2 Blood Gas A-a O2 Differential 557.5 H Oxyhemoglobin Percent 85.4 L Total Hemoglobin 11.4 L Blood Gas Temperature 37.0 Blood Gas Modality MASK - NRB FiO2 100.0 Blood Gas Critical Value Read Back U DES RT Blood Gas Notified Whom Blood Gas Notified Time 04/29/2017 10:26:31 PM Bedside Glucose 236 H Test 04/29/17 23:15 04/30/17 00:33 04/30/17 05:49 04/30/17 08:00 Blood Gas Specimen Source Blood arterial Blood arterial Arterial Blood Date Drawn 04/30/2017 12:00:08 AM 04/30/2017 10:29:22 AM Arterial Blood pH (Temp corrected) 7.195 *L 7.050 *L Arterial Blood pCO2 (Temp correct) 56.3 H 73.0 H Arterial Blood pO2 (Temp corrected) 96.7 H 72.3 L Arterial Blood HCO3 21.3 L 19.7 L Arterial Blood Base Excess -7.2 L -11.5 L Arterial Blood Oxygen Saturation 94.9 L 87.4 L Hunter Test ACCEPTAB ACCEPTAB Arterial Blood Gas Puncture Site Right Radial Right Radial Arterial Blood Carboxyhemoglobin 0.2 0.2 Arterial Blood Methemoglobin 0.2 0.2 Blood Gas A-a O2 Differential 560.0 H 567.7 H Oxyhemoglobin Percent 94.5 87.1 L Total Hemoglobin 12.1 12.1 Blood Gas Temperature 37.0 37.0 Blood Gas Respiration Rate 20.0 20.0 Blood Gas Actual Respiration Rate 20 20 Blood Gas Modality VENT - AC VENT - AC FiO2 100.0 100.0 Blood Gas Tidal Volume 500.0 550.0 Blood Gas Low PEEP Setting 5.0 Blood Gas Critical Value Read Back Mahi GÓMEZ RN Blood Gas Notified Whom UP TM Blood Gas Notified Time 04/30/2017 12:20:46 AM 04/30/2017 10:37:35 AM Lactic Acid Level 7.9 *H Creatine Kinase 2117 H 1577 H Creatine Kinase Index 11.3 15.0 Creatinine Kinase MB (Mass) 239.00 H 237.00 H Troponin I 137.000 *H 152.000 *H White Blood Count 2.0 #L Red Blood Count 3.00 L Hemoglobin 10.3 L Hematocrit 33.1 L Mean Corpuscular Volume 110.3 H Mean Corpuscular Hemoglobin 34.3 H Mean Corpuscular Hemoglobin Concent 31.1 L Red Cell Distribution Width 14.8 H Platelet Count 116 L Mean Platelet Volume 11.2 H Neutrophils % Segmented Neutrophils % (Manual) 23 L Band Neutrophils % (Manual) 11 H Lymphocytes % Lymphocytes % (Manual) 43 Monocytes % Monocytes % (Manual) 10 Eosinophils % Basophils % Metamyelocytes % (manual) 13 H Myelocytes % (Manual) 1 H Nucleated Red Blood Cells % 1 H Neutrophils # Neutrophils # (Manual) 0.5 L Band Neutrophils # 0.2 Absolute Lymphocytes (Manual) 0.8 Lymphocytes # Monocytes # Absolute Monocytes (Manual) 0.2 L Eosinophils # Basophils # Metamyelocytes # 0.2 H Myelocytes # 0.0 Nucleated Red Blood Cells # Platelet Estimate DECREASED Giant Platelets 5 H Hypochromasia 1+ Poikilocytosis 1+ Macrocytosis 1+ Sodium Level 142 Potassium Level 3.6 Chloride Level 100 Carbon Dioxide Level 25 Anion Gap 21 H Blood Urea Nitrogen 45 H Creatinine 6.94 H Glucose Level 114 Calcium Level 8.7 Total Bilirubin 0.2 Direct Bilirubin 0.00 Indirect Bilirubin 0.2 Aspartate Amino Transf (AST/SGOT) 270 #H Alanine Aminotransferase (ALT/SGPT) 58 Alkaline Phosphatase 68 Total Protein 5.6 #L Albumin 3.0 L Globulin 2.60 Albumin/Globulin Ratio 1.15 Triglycerides Level 100 Cholesterol Level 163 LDL Cholesterol, Calculated 108 HDL Cholesterol 35 Cholesterol/HDL Ratio 4.6 Test 04/30/17 12:06 04/30/17 12:55 Bedside Glucose 120 Prothrombin Time Pending Prothrombin Time Ratio 1.4 INR International Normalized Ratio 1.43 Activated Partial Thromboplast Time 60.4 H Medications Medications Current Medications Folic Acid 1 mg 1 mg DAILY PO Last administered on 04/30/17 09:15; Admin Dose 1 MG; Start 04/30/17 at 09:00 Sodium Chloride (NS) 1,000 ml @ 50 mls/hr Q20H IV Last administered on 10:36; Admin Dose 50 MLS/HR; Start 04/29/17 at 20:00 Ondansetron HCl (Zofran Inj) 4 mg Q6H PRN IV NAUSEA AND/OR VOMITING; Start at 20:00 Nitroglycerin (Nitroglycerin (Sl Tab) 0.4 Mg) 1 tab Q5M PRN SL CHEST PAIN; Start 04/29/17 at 20:00 Acetaminophen (Tylenol Liquid) 650 mg Q6H PRN PO PAIN LEVEL 1-3 OR FEVER; Start 04/29/17 at 20:00 Acetaminophen (Tylenol Tab) 650 mg Q6H PRN PO PAIN LEVEL 1-3 OR FEVER; Start at 20:00 Acetaminophen/ Hydrocodone Bitart (Gem (5/325)) 1 tab Q6H PRN PO PAIN LEVEL 4 -6; Start 04/29/17 at 20:00 Zolpidem Tartrate (Ambien) 5 mg QHS PRN PO INSOMNIA; Start 04/29/17 at 20:00 Docusate Sodium (Colace) 100 mg Q12H PRN PO CONSTIPATION; Start 04/29/17 at 20: 00 Bisacodyl 5 mg 5 mg DAILY PRN PO CONSTIPATION; Start 04/29/17 at 20:00 Piperacillin Sod/ Tazobactam Sod (Zosyn 2.25gm/ 50ml (Pmx)) 50 ml @ 100 mls/hr Q8 IVPB Last administered on 04/30/17 05:32; Admin Dose 100 MLS/HR; Start at 06:00 Methylprednisolone Sodium Succinate (Solu-Medrol) 40 mg Q8 IV Last administered on 04/30/17 05:33; Admin Dose 40 MG; Start 04/30/17 at 06:00 Aspirin 325 mg 325 mg DAILY PO Last administered on 04/30/17 09:15; Admin Dose 325 MG; Start 04/30/17 at 09:00 Propofol 100 ml @ 2.25 mls/hr Q12H IV ; Start 04/29/17 at 23:00 Norepinephrine 16 mg/Dextrose 500 ml @ 1.87 mls/hr TITRATE IV Last administered on 04/30/17 06:13; Admin Dose 56.25 MLS/HR; Start 04/30/17 at 09: 00 Phenylephrine HCl 40 mg/Dextrose 500 ml @ 75 mls/hr TITRATE IV Last administered on 04/30/17 06:58; Admin Dose 15 MLS/HR; Start 04/30/17 at 06:30 Vasopressin 60 unit/Dextrose 60 ml @ 1.2 mls/hr Q12H IV ; Start 04/30/17 at 13: 00 Dobutamine HCl/ Dextrose 250 ml @ 9.51 mls/hr TITRATE IV ; Start 04/30/17 at 13 :00 Famotidine (Pepcid Iv) 20 mg DAILY IV ; Start 05/01/17 at 09:00 NADIA STRONG Apr 30, 2017 13:37
[2017-04-30] MEDS: VASOPRESSIN 60 UNIT in DEXTROSE 5% 57 ML IV SCH (13:41)
[2017-04-30] MEDS ORDERED: CLOPIDOGREL 75 MG TAB PO ONE (14:00)
[2017-04-30] MEDS: DOBUTamine/D5W 1 MG/ML DRIP 250 ML IV SCH ×2 (14:05→21:31)
[2017-04-30] MEDS ORDERED: NA BICARBONATE 8.4% 50 ML SYG ONE (14:39)
[2017-04-30 14:40] LABS: AADO2 Arterial 578.2 mmHg (7.0-24.0); Allen Test ACCEPTAB; Arterial Base Excess -12.1 mmol/L (-3.0-3); Arterial COHb 0 % (0.0-3.0); Arterial Fraction of Oxyhgb 92.3 % (93.0-99.0); Arterial HCO3 17.1 mmol/L (22.0-26.0); Arterial MetHb 0.1 % (0.0-1.5); Arterial Total Hemglobin 10.8 g/dl (12.0-18.0); MODE VENT - AC
[2017-04-30] MEDS ORDERED: NA BICARBONATE 8.4% 50 ML SYG IV ONE (15:00)
[2017-04-30] MEDS ORDERED: EPINEPHrine 4 MG in DEXTROSE 5% 246 ML IV SCH (15:00)
--- NOTE | 2017-04-30 15:03 | CONS ---
Date/Time of Note Date/Time of Note DATE: 04/30/17 TIME: 14:56 Assessment/Plan Assessment/Plan Additional Assessment/Plan IMP: 1. Cardiogenic Shock 2. Acute NC 3. V.fib/tach 4. Severe Met Acidosis due to CKD and lactic acidosis 5. CKD RECS: 1. Pressor support and inotropic support 2. Would avoid neosynephrine given low EF 3. Will not tolerate HD 4. NaHCO3 gtt 5. Heparin gtt as per cards 6. Vent support--increase RR 30 7. I had a long discussion with family about goals of care, explaining to them his overall prognosis and that more aggressive measure such as chest compressions may not be advisable given his situation. Consultation Date/Type/Reason Admit Date/Time Apr 29, 2017 at 19:31 Type of Consultation: Pulm/CCM Hx of Present Illness Briefly, this is an 87 yo with HTN, CAD, CABG 1989 4V -0 per family presenting with V.tach/fib arrest likely due to a massive NC with associated refractory cardiogenic shock. unable to obtain Past Medical History Medical History: cancer, coronary artery disease, hypertension Past Surgical History Past Surgical Hx: coronary bypass surgery Family History Significant Family History: no pertinent family hx Social History Alcohol Use: none Smoking Status: Former smoker Drug Use: none Exam/Review of Systems Vital Signs Vitals Vital Signs Date Time Temp Pulse Resp B/P Pulse Ox O2 Delivery O2 Flow Rate FiO2 04/30/17 14:30 72 24 76/41 91 04/30/17 14:00 Mechanical Ventilator 04/30/17 12:15 100 04/30/17 12:00 97.7 04/29/17 20:16 15.0 Intake and Output 04/29/17 04/29/17 04/30/17 15:00 23:00 07:00 Intake Total 698.52 ml Output Total 100 ml Balance 598.52 ml Exam Constitutional: well developed Head: atraumatic, normocephalic Eyes: nl lids ENMT: intubated, nl external ears & nose Neck: jvd, supple Respiratory: crackles/rales, diminished breath sounds, labored breathing Cardiovascular: S3, jugular venous distention (JVD), nl pulses, systolic murmur Gastrointestinal: bowel sounds, distended Extremities: edema, normal pulses Results Result Diagram: 04/30/17 0549 04/30/17 0549 Results 24 hrs Laboratory Tests Test 04/29/17 19:30 04/29/17 22:05 04/29/17 22:21 04/29/17 22:35 White Blood Count 8.2 Red Blood Count 2.91 L Hemoglobin 9.7 L Hematocrit 30.9 L Mean Corpuscular Volume 106.2 H Mean Corpuscular Hemoglobin 33.3 H Mean Corpuscular Hemoglobin Concent 31.4 L Red Cell Distribution Width 15.0 H Platelet Count 101 L Mean Platelet Volume 11.1 #H Neutrophils % 82.1 H Lymphocytes % 10.7 L Monocytes % 5.6 Eosinophils % 0.9 Basophils % 0.1 Nucleated Red Blood Cells % 0.0 Neutrophils # 6.7 Lymphocytes # 0.9 Monocytes # 0.5 Eosinophils # 0.1 Basophils # 0.0 Nucleated Red Blood Cells # 0.0 Prothrombin Time 13.0 Prothrombin Time Ratio 1.0 INR International Normalized Ratio 0.98 Activated Partial Thromboplast Time 35.6 H Sodium Level 141 Potassium Level 4.5 Chloride Level 96 L Carbon Dioxide Level 32 H Anion Gap 18 H Blood Urea Nitrogen 43 H Creatinine 6.35 H Glucose Level 136 Lactic Acid Level 4.1 *H 6.6 *H Calcium Level 10.5 H Magnesium Level 1.9 Total Bilirubin 0.3 Direct Bilirubin 0.00 Indirect Bilirubin 0.3 Aspartate Amino Transf (AST/SGOT) 151 H Alanine Aminotransferase (ALT/SGPT) 43 Alkaline Phosphatase 90 Troponin I 30.000 *H 75.700 *H Total Protein 6.7 Albumin 3.7 Globulin 3.00 Albumin/Globulin Ratio 1.23 Lipase 220 Blood Gas Specimen Source Blood arterial Arterial Blood Date Drawn 04/29/2017 10:10:42 PM Arterial Blood pH (Temp corrected) 7.129 *L Arterial Blood pCO2 (Temp correct) 84.7 *H Arterial Blood pO2 (Temp corrected) 70.8 L Arterial Blood HCO3 27.5 H Arterial Blood Base Excess -3.2 L Arterial Blood Oxygen Saturation 85.8 L Hunter Test ACCEPTAB Arterial Blood Gas Puncture Site Right Radial Arterial Blood Carboxyhemoglobin 0.3 Arterial Blood Methemoglobin 0.2 Blood Gas A-a O2 Differential 557.5 H Oxyhemoglobin Percent 85.4 L Total Hemoglobin 11.4 L Blood Gas Temperature 37.0 Blood Gas Modality MASK - NRB FiO2 100.0 Blood Gas Critical Value Read Back U PHANPAKTRA RT Blood Gas Notified Whom Blood Gas Notified Time 04/29/2017 10:26:31 PM Bedside Glucose 236 H Test 04/29/17 23:15 04/30/17 00:33 04/30/17 05:49 04/30/17 08:00 Blood Gas Specimen Source Blood arterial Blood arterial Arterial Blood Date Drawn 04/30/2017 12:00:08 AM 04/30/2017 10:29:22 AM Arterial Blood pH (Temp corrected) 7.195 *L 7.050 *L Arterial Blood pCO2 (Temp correct) 56.3 H 73.0 H Arterial Blood pO2 (Temp corrected) 96.7 H 72.3 L Arterial Blood HCO3 21.3 L 19.7 L Arterial Blood Base Excess -7.2 L -11.5 L Arterial Blood Oxygen Saturation 94.9 L 87.4 L Hunter Test ACCEPTAB ACCEPTAB Arterial Blood Gas Puncture Site Right Radial Right Radial Arterial Blood Carboxyhemoglobin 0.2 0.2 Arterial Blood Methemoglobin 0.2 0.2 Blood Gas A-a O2 Differential 560.0 H 567.7 H Oxyhemoglobin Percent 94.5 87.1 L Total Hemoglobin 12.1 12.1 Blood Gas Temperature 37.0 37.0 Blood Gas Respiration Rate 20.0 20.0 Blood Gas Actual Respiration Rate 20 20 Blood Gas Modality VENT - AC VENT - AC FiO2 100.0 100.0 Blood Gas Tidal Volume 500.0 550.0 Blood Gas Low PEEP Setting 5.0 Blood Gas Critical Value Read Back Mahi LYNNE RN Dominique GÓMEZ RN Blood Gas Notified Whom UP TM Blood Gas Notified Time 04/30/2017 12:20:46 AM 04/30/2017 10:37:35 AM Lactic Acid Level 7.9 *H Creatine Kinase 2117 H 1577 H Creatine Kinase Index 11.3 15.0 Creatinine Kinase MB (Mass) 239.00 H 237.00 H Troponin I 137.000 *H 152.000 *H White Blood Count 2.0 #L Red Blood Count 3.00 L Hemoglobin 10.3 L Hematocrit 33.1 L Mean Corpuscular Volume 110.3 H Mean Corpuscular Hemoglobin 34.3 H Mean Corpuscular Hemoglobin Concent 31.1 L Red Cell Distribution Width 14.8 H Platelet Count 116 L Mean Platelet Volume 11.2 H Neutrophils % Segmented Neutrophils % (Manual) 23 L Band Neutrophils % (Manual) 11 H Lymphocytes % Lymphocytes % (Manual) 43 Monocytes % Monocytes % (Manual) 10 Eosinophils % Basophils % Metamyelocytes % (manual) 13 H Myelocytes % (Manual) 1 H Nucleated Red Blood Cells % 1 H Neutrophils # Neutrophils # (Manual) 0.5 L Band Neutrophils # 0.2 Absolute Lymphocytes (Manual) 0.8 Lymphocytes # Monocytes # Absolute Monocytes (Manual) 0.2 L Eosinophils # Basophils # Metamyelocytes # 0.2 H Myelocytes # 0.0 Nucleated Red Blood Cells # Platelet Estimate DECREASED Giant Platelets 5 H Hypochromasia 1+ Poikilocytosis 1+ Macrocytosis 1+ Sodium Level 142 Potassium Level 3.6 Chloride Level 100 Carbon Dioxide Level 25 Anion Gap 21 H Blood Urea Nitrogen 45 H Creatinine 6.94 H Glucose Level 114 Calcium Level 8.7 Total Bilirubin 0.2 Direct Bilirubin 0.00 Indirect Bilirubin 0.2 Aspartate Amino Transf (AST/SGOT) 270 #H Alanine Aminotransferase (ALT/SGPT) 58 Alkaline Phosphatase 68 Total Protein 5.6 #L Albumin 3.0 L Globulin 2.60 Albumin/Globulin Ratio 1.15 Triglycerides Level 100 Cholesterol Level 163 LDL Cholesterol, Calculated 108 HDL Cholesterol 35 Cholesterol/HDL Ratio 4.6 Test 04/30/17 12:06 04/30/17 12:55 04/30/17 14:17 Bedside Glucose 120 Prothrombin Time 17.5 #H Prothrombin Time Ratio 1.4 INR International Normalized Ratio 1.43 Activated Partial Thromboplast Time 60.4 H Blood Gas Specimen Source Blood arterial Arterial Blood Date Drawn 04/30/2017 2:25:02 PM Arterial Blood pH (Temp corrected) 7.114 *L Arterial Blood pCO2 (Temp correct) 54.6 H Arterial Blood pO2 (Temp corrected) 80.2 Arterial Blood HCO3 17.1 L Arterial Blood Base Excess -12.1 L Arterial Blood Oxygen Saturation 92.4 L Hunter Test ACCEPTAB Arterial Blood Gas Puncture Site Right Radial Arterial Blood Carboxyhemoglobin 0 Arterial Blood Methemoglobin 0.1 Blood Gas A-a O2 Differential 578.2 H Oxyhemoglobin Percent 92.3 L Total Hemoglobin 10.8 L Blood Gas Temperature 37.0 Blood Gas Respiration Rate 30.0 Blood Gas Actual Respiration Rate 30 Blood Gas Modality VENT - AC FiO2 100.0 Blood Gas Tidal Volume 550.0 Blood Gas Critical Value Read Back NICOLE VELASQUEZ Blood Gas Notified Whom CW Blood Gas Notified Time 04/30/2017 2:40:41 PM Medications Medications Current Medications Folic Acid 1 mg 1 mg DAILY PO Last administered on 04/30/17 09:15; Admin Dose 1 MG; Start 04/30/17 at 09:00 Sodium Chloride (NS) 1,000 ml @ 50 mls/hr Q20H IV Last administered on 10:36; Admin Dose 50 MLS/HR; Start 04/29/17 at 20:00; Status Future Hold Ondansetron HCl (Zofran Inj) 4 mg Q6H PRN IV NAUSEA AND/OR VOMITING; Start at 20:00 Nitroglycerin (Nitroglycerin (Sl Tab) 0.4 Mg) 1 tab Q5M PRN SL CHEST PAIN; Start 04/29/17 at 20:00 Acetaminophen (Tylenol Liquid) 650 mg Q6H PRN PO PAIN LEVEL 1-3 OR FEVER; Start 04/29/17 at 20:00 Acetaminophen (Tylenol Tab) 650 mg Q6H PRN PO PAIN LEVEL 1-3 OR FEVER; Start at 20:00 Acetaminophen/ Hydrocodone Bitart ([place] (5/325)) 1 tab Q6H PRN PO PAIN LEVEL 4 -6; Start 04/29/17 at 20:00 Zolpidem Tartrate (Ambien) 5 mg QHS PRN PO INSOMNIA; Start 04/29/17 at 20:00 Docusate Sodium (Colace) 100 mg Q12H PRN PO CONSTIPATION; Start 04/29/17 at 20: 00 Bisacodyl 5 mg 5 mg DAILY PRN PO CONSTIPATION; Start 04/29/17 at 20:00 Piperacillin Sod/ Tazobactam Sod (Zosyn 2.25gm/ 50ml (Pmx)) 50 ml @ 100 mls/hr Q8 IVPB Last administered on 04/30/17 05:32; Admin Dose 100 MLS/HR; Start at 06:00 Methylprednisolone Sodium Succinate (Solu-Medrol) 40 mg Q8 IV Last administered on 04/30/17 05:33; Admin Dose 40 MG; Start 04/30/17 at 06:00 Aspirin 325 mg 325 mg DAILY PO Last administered on 9/16/17at 09:15; Admin Dose 325 MG; Start 04/30/17 at 09:00 Propofol 100 ml @ 2.25 mls/hr Q12H IV ; Start 04/29/17 at 23:00 Norepinephrine 16 mg/Dextrose 500 ml @ 1.87 mls/hr TITRATE IV Last administered on 04/30/17 06:13; Admin Dose 56.25 MLS/HR; Start 04/30/17 at 09: 00 Phenylephrine HCl 40 mg/Dextrose 500 ml @ 75 mls/hr TITRATE IV Last administered on 04/30/17 13:58; Admin Dose 225 MLS/HR; Start 04/30/17 at 06:30 Vasopressin 60 unit/Dextrose 60 ml @ 1.2 mls/hr Q12H IV Last administered on 13:41; Admin Dose 1.2 MLS/HR; Start 04/30/17 at 13:00 Dobutamine HCl/ Dextrose 250 ml @ 9.51 mls/hr TITRATE IV Last administered on 04/30/17 14:05; Admin Dose 9.51 MLS/HR; Start 04/30/17 at 13:00 Famotidine (Pepcid Iv) 20 mg DAILY IV ; Start 05/01/17 at 09:00 Sodium Bicarbonate 50 ml 50 ml ONCE ONCE IV Last administered on 04/30/17 14: 51; Admin Dose 50 ML; Start 04/30/17 at 15:00; Stop 04/30/17 at 15:01 Sodium Bicarbonate 150 meq/Dextrose 1,000 ml @ 150 mls/hr Q6H40M IV ; Start at 16:00 Epinephrine/ Dextrose (EPINEPHrine/D5W) 250 ml @ 3.75 mls/hr TITRATE IV ; Start 04/30/17 at 15:00 RY WONG MD Apr 30, 2017 15:03
[2017-04-30] MEDS ORDERED: LIDOCAINE 1% (MDV) 20 ML INJ ONE (15:16)
[2017-04-30] MEDS ORDERED: IODIXANOL LOCM 100 ML BTL ONE (15:16)
[2017-04-30] MEDS: SODIUM BICARBONATE (IV ADD) 150 MEQ in DEXTROSE 5% 850 ML IV SCH ×2 (16:30→22:44)
[2017-04-30] MEDS ORDERED: PHENYLephrine 20MG IN 250 ML 250 ML ONE (17:46)
[2017-04-30] MEDS: PHENYLephrine 80 MG in DEXTROSE 5% 242 ML IV SCH (19:29)
[2017-04-30] MEDS: FENTAnyl (DRIP) 1000 mcg/100mL 100 ML IV SCH (20:29)
[2017-05-01] VITALS (101 sets, daily range): BP systolic 70–141; BP diastolic 37–85; PULSE 87–111; RESP 12–30
[2017-05-01] MEDS: VASOPRESSIN 60 UNIT in DEXTROSE 5% 57 ML IV SCH ×2 (01:07→12:47)
[2017-05-01] MEDS: IPRATROPIUM (HFA) 12.9 GM INHALER INH SCH ×4 (01:29→20:26)
[2017-05-01] MEDS: ALBUTEROL 18 GM INHALER INH SCH ×4 (01:29→20:26)
[2017-05-01] MEDS: NORepinephrine 32 MG in DEXTROSE 5% 218 ML IV SCH (03:30)
[2017-05-01] MEDS: PHENYLephrine 80 MG in DEXTROSE 5% 242 ML IV SCH (03:31)
[2017-05-01 04:04] LABS: ABNORMAL IP MESSAGE 1; HEMATOCRIT 27.3 % (42.0-52.0); HEMOGLOBIN 8.9 g/dl (14.0-18.0); LYMPHOCYTES # 0.3 10^3/ul (0.8-2.9); LYMPHOCYTES % 5.7 % (15.0-51.0); MEAN CORPUSCULAR HEMOGLOBIN 33.7 pg (29.0-33.0); MEAN CORPUSCULAR HGB CONC 32.6 g/dl (32.0-37.0); MEAN CORPUSCULAR VOLUME 103.4 fl (82.0-101.0); MEAN PLATELET VOLUME 12.3 fl (7.4-10.4); MONOCYTE # 0.2 10^3/ul (0.3-0.9); MONOCYTES % 2.6 % (0.0-11.0); NEUTROPHIL # 4.9 10^3/ul (1.6-7.5); NEUTROPHILS % 85.4 % (39.0-77.0); PLATELET COUNT 48 10^3/UL (140-415); POSITIVE DIFF @See below; RED BLOOD COUNT 2.64 10^6/ul (4.70-6.10); WHITE BLOOD COUNT 5.8 10^3/ul (4.8-10.8)
[2017-05-01] MEDS: METHYLPREDNISOLONE 40 MG INJ IV SCH ×3 (05:26→21:16)
[2017-05-01] MEDS: PIPER-TAZO 2.25 GM (PMX) 50 ML IVPB SCH ×3 (05:26→21:16)
[2017-05-01] MEDS: DOBUTamine/D5W 1 MG/ML DRIP 250 ML IV SCH ×3 (05:54→23:45)
[2017-05-01 05:55] LABS: ALBUMIN 2.4 g/dl (3.3-4.9); ALKALINE PHOSPHATASE 41 IU/L (42-121); ANION GAP 19 (8-16); BILIRUBIN,INDIRECT 0.3 mg/dl (0-1.1); BILIRUBIN,TOTAL 0.4 mg/dl (0.2-1.3); BLOOD UREA NITROGEN 53 mg/dl (7-20); CALCIUM 6.6 mg/dl (8.4-10.2); CARBON DIOXIDE 28 mmol/L (21-31); CHLORIDE 85 mmol/L (97-110); CREATININE 7.02 mg/dl (0.61-1.24); GLUCOSE 207 mg/dl (70-220); POTASSIUM 3.9 mmol/L (3.5-5.1); SODIUM 128 mmol/L (135-144); TOTAL PROTEIN 4.8 g/dl (6.1-8.1)
[2017-05-01] MEDS: FENTAnyl (DRIP) 1000 mcg/100mL 100 ML IV SCH ×2 (05:55→17:25)
[2017-05-01] MEDS: SODIUM BICARBONATE (IV ADD) 150 MEQ in DEXTROSE 5% 850 ML IV SCH ×3 (06:04→14:23)
[2017-05-01 08:50] LABS: ALANINE AMINOTRANSFERASE 5547 IU/L (13-69)
[2017-05-01] MEDS: ASPIRIN 325 MG TAB PO SCH (09:00)
[2017-05-01] MEDS ORDERED: FAMOTIDINE 20 MG INJ IV SCH (09:00)
[2017-05-01 09:08] LABS: ASPARTATE AMINO TRANSFERASE > 7500 IU/L (15-46)
[2017-05-01] MEDS: FOLIC ACID 1 MG TAB PO SCH (09:48)
[2017-05-01] MEDS: PROPOFOL 100 ML IV SCH ×2 (10:48→23:06)
--- NOTE | 2017-05-01 12:01 | CONS ---
Date/Time of Note Date/Time of Note DATE: 05/01/17 TIME: 11:57 Assessment/Plan Assessment/Plan Additional Assessment/Plan 1. 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 2. CAD - s/p AMI, troponin high - infarct complete - at tihs point, risk of LHC is not justified - will con't supportive care - heparin gtt gfor now 3. CHF - Syst HF, acute on chronic - HD today t o remove fluids 4. ESRD - HD now, slow pull advised 5. Hypotension - on pressors now. Overall poor prognosis, will medically manage now Consultation Date/Type/Reason Admit Date/Time Apr 29, 2017 at 19:31 Type of Consultation: Pulm/CCM 24 HR Interval Summary Free Text/Dictation NO acute events - decreasing pressors in a setting of cardiogenic shock - HD today ROS: No fever, no chills, no nausea, no vomiting, no diarrhea/constipation No recent weight changes No chest pain, no PND, no orthopnea No dizziness, blurred vision No thirst, no heat or cold intolerance (per nurse, now sedated) Exam/Review of Systems Vital Signs Vitals Vital Signs Date Time Temp Pulse Resp B/P Pulse Ox O2 Delivery O2 Flow Rate FiO2 05/01/17 11:15 90 30 94/44 100 05/01/17 11:00 Mechanical Ventilator 05/01/17 08:00 100 05/01/17 08:00 99.4 04/29/17 20:16 15.0 Intake and Output 04/30/17 04/30/17 05/01/17 15:00 23:00 07:00 Intake Total 2065.59 ml 3088.98 ml 1919.01 ml Output Total 5 ml 0 ml 0 ml Balance 2060.59 ml 3088.98 ml 1919.01 ml Exam General: WN/WD/NAD, AOx 0 HEENT: Unicetric/atraumatic/EOMI (does not follow commands) NECK: JVD elevated, no thyromegaly, intubated Lymph: no lymphadenopathy HEART: regular with no S3, II/ systolic murmur at apex, PMI L LUNGS: Coarse sounds ABD: soft, NT, ND, +BS : Intact Neuro: non focal SKIN: chronic changes EXT: trace edema Results Result Diagram: 05/01/1734905/01/17349 Results 24 hrs Laboratory Tests Test 04/30/17 12:06 04/30/17 12:55 04/30/17 14:17 04/30/17 20:50 Bedside Glucose 120 Prothrombin Time 17.5 #H Prothrombin Time Ratio 1.4 INR International Normalized Ratio 1.43 Activated Partial Thromboplast Time 60.4 H 144.2 *H Blood Gas Specimen Source Blood arterial Arterial Blood Date Drawn 04/30/2017 2:25:02 PM Arterial Blood pH (Temp corrected) 7.114 *L Arterial Blood pCO2 (Temp correct) 54.6 H Arterial Blood pO2 (Temp corrected) 80.2 Arterial Blood HCO3 17.1 L Arterial Blood Base Excess -12.1 L Arterial Blood Oxygen Saturation 92.4 L Hunter Test ACCEPTAB Arterial Blood Gas Puncture Site Right Radial Arterial Blood Carboxyhemoglobin 0 Arterial Blood Methemoglobin 0.1 Blood Gas A-a O2 Differential 578.2 H Oxyhemoglobin Percent 92.3 L Total Hemoglobin 10.8 L Blood Gas Temperature 37.0 Blood Gas Respiration Rate 30.0 Blood Gas Actual Respiration Rate 30 Blood Gas Modality VENT - AC FiO2 100.0 Blood Gas Tidal Volume 550.0 Blood Gas Critical Value Read Back NICOLE VELASQUEZ Blood Gas Notified Whom CW Blood Gas Notified Time 04/30/2017 2:40:41 PM Test 05/01/17 03:50 White Blood Count 5.8 # Red Blood Count 2.64 L Hemoglobin 8.9 L Hematocrit 27.3 L Mean Corpuscular Volume 103.4 H Mean Corpuscular Hemoglobin 33.7 H Mean Corpuscular Hemoglobin Concent 32.6 Red Cell Distribution Width 14.0 Platelet Count 48 #L Mean Platelet Volume 12.3 H Neutrophils % 85.4 H Lymphocytes % 5.7 L Monocytes % 2.6 Eosinophils % 0.0 Basophils % 0.0 Nucleated Red Blood Cells % 0.0 Neutrophils # 4.9 Lymphocytes # 0.3 L Monocytes # 0.2 L Eosinophils # 0.0 Basophils # 0.0 Nucleated Red Blood Cells # 0.0 Activated Partial Thromboplast Time 92.2 *H Sodium Level 128 L Potassium Level 3.9 Chloride Level 85 #L Carbon Dioxide Level 28 Anion Gap 19 H Blood Urea Nitrogen 53 H Creatinine 7.02 H Glucose Level 207 Calcium Level 6.6 L Total Bilirubin 0.4 Direct Bilirubin 0.10 Indirect Bilirubin 0.3 Aspartate Amino Transf (AST/SGOT) > 7500 H Alanine Aminotransferase (ALT/SGPT) 5547 H Alkaline Phosphatase 41 L Total Protein 4.8 L Albumin 2.4 L Globulin 2.40 Albumin/Globulin Ratio 1.00 Medications Medications Current Medications Folic Acid (Folic Acid) 1 mg DAILY PO Last administered on 05/01/17 09:48; Admin Dose 1 MG; Start 04/30/17 at 09:00 Ondansetron HCl (Zofran Inj) 4 mg Q6H PRN IV NAUSEA AND/OR VOMITING; Start at 20:00 Nitroglycerin (Nitroglycerin (Sl Tab) 0.4 Mg) 1 tab Q5M PRN SL CHEST PAIN; Start 04/29/17 at 20:00 Acetaminophen (Tylenol Liquid) 650 mg Q6H PRN PO PAIN LEVEL 1-3 OR FEVER; Start 04/29/17 at 20:00 Acetaminophen (Tylenol Tab) 650 mg Q6H PRN PO PAIN LEVEL 1-3 OR FEVER; Start at 20:00 Acetaminophen/ Hydrocodone Bitart ([place] (5/325)) 1 tab Q6H PRN PO PAIN LEVEL 4 -6; Start 04/29/17 at 20:00 Zolpidem Tartrate (Ambien) 5 mg QHS PRN PO INSOMNIA; Start 04/29/17 at 20:00 Docusate Sodium (Colace) 100 mg Q12H PRN PO CONSTIPATION; Start 04/29/17 at 20: 00 Bisacodyl 5 mg 5 mg DAILY PRN PO CONSTIPATION; Start 04/29/17 at 20:00 Piperacillin Sod/ Tazobactam Sod (Zosyn 2.25gm/ 50ml (Pmx)) 50 ml @ 100 mls/hr Q8 IVPB Last administered on 05/01/17 05:26; Admin Dose 100 MLS/HR; Start at 06:00 Methylprednisolone Sodium Succinate (Solu-Medrol) 40 mg Q8 IV Last administered on 05/01/17 05:26; Admin Dose 40 MG; Start 04/30/17 at 06:00 Aspirin 325 mg 325 mg DAILY PO Last administered on 04/30/17 09:15; Admin Dose 325 MG; Start 04/30/17 at 09:00 Propofol 100 ml @ 2.25 mls/hr Q12H IV Last administered on 05/01/17 10:48; Admin Dose 2.25 MLS/HR; Start 04/29/17 at 23:00 Vasopressin 60 unit/Dextrose 60 ml @ 1.2 mls/hr Q12H IV Last administered on 01:07; Admin Dose 2.4 MLS/HR; Start 04/30/17 at 13:00 Dobutamine HCl/ Dextrose 250 ml @ 9.51 mls/hr TITRATE IV Last administered on 05/01/17 05:54; Admin Dose 28.53 MLS/HR; Start 04/30/17 at 13:00 Famotidine 20 mg 20 mg DAILY IV Last administered on 05/01/17 09:48; Admin Dose 20 MG; Start 05/01/17 at 09:00 Sodium Bicarbonate 150 meq/Dextrose 1,000 ml @ 150 mls/hr Q6H40M IV Last administered on 05/01/17 06:04; Admin Dose 150 MLS/HR; Start 04/30/17 at 16:00 Fentanyl 100 ml @ 5 mls/hr TITRATE IV Last administered on 05/01/17 05:55; Admin Dose 75 MLS/HR; Start 04/30/17 at 16:00 Phenylephrine HCl 80 mg/Dextrose 250 ml @ 18.75 mls/ hr TITRATE IV Last administered on 05/01/17 03:31; Admin Dose 16.87 MLS/HR; Start 04/30/17 at 18: 00 Norepinephrine/ Dextrose (Levophed/D5W) 250 ml @ 0.46 mls/hr TITRATE IV Last administered on 05/01/17 03:30; Admin Dose 7.03 MLS/HR; Start 04/30/17 at 18:00 CANDACE CARTWRIGHT MD May 01, 2017 12:01
--- NOTE | 2017-05-01 12:30 | CONS ---
Date/Time of Note Date/Time of Note DATE: 05/01/17 TIME: 12:29 Consult Date/Type/Reason Admit Date/Time Apr 29, 2017 at 19:31 Initial Consult Date Type of Consultation: interventional card Subjective d/w multiple physicians and staff. chart reviewed. Objective Vital Signs Date Time Temp Pulse Resp B/P Pulse Ox O2 Delivery O2 Flow Rate FiO2 05/01/17 11:15 90 30 94/44 100 05/01/17 11:00 Mechanical Ventilator 05/01/17 08:00 100 05/01/17 08:00 99.4 04/29/17 20:16 15.0 Intake and Output 04/30/17 04/30/17 05/01/17 15:00 23:00 07:00 Intake Total 2065.59 ml 3088.98 ml 1919.01 ml Output Total 5 ml 0 ml 0 ml Balance 2060.59 ml 3088.98 ml 1919.01 ml Results/Medications Result Diagram: 05/01/17 0350 05/01/17 0350 Results 24 hrs Laboratory Tests Test 04/30/17 12:55 04/30/17 14:17 04/30/17 20:50 05/01/17 03:50 Prothrombin Time 17.5 #H Prothrombin Time Ratio 1.4 INR International Normalized Ratio 1.43 Activated Partial Thromboplast Time 60.4 H 144.2 *H 92.2 *H Blood Gas Specimen Source Blood arterial Arterial Blood Date Drawn 04/30/2017 2:25:02 PM Arterial Blood pH (Temp corrected) 7.114 *L Arterial Blood pCO2 (Temp correct) 54.6 H Arterial Blood pO2 (Temp corrected) 80.2 Arterial Blood HCO3 17.1 L Arterial Blood Base Excess -12.1 L Arterial Blood Oxygen Saturation 92.4 L Hunter Test ACCEPTAB Arterial Blood Gas Puncture Site Right Radial Arterial Blood Carboxyhemoglobin 0 Arterial Blood Methemoglobin 0.1 Blood Gas A-a O2 Differential 578.2 H Oxyhemoglobin Percent 92.3 L Total Hemoglobin 10.8 L Blood Gas Temperature 37.0 Blood Gas Respiration Rate 30.0 Blood Gas Actual Respiration Rate 30 Blood Gas Modality VENT - AC FiO2 100.0 Blood Gas Tidal Volume 550.0 Blood Gas Critical Value Read Back NICOLE VELASQUEZ Blood Gas Notified Whom CW Blood Gas Notified Time 04/30/2017 2:40:41 PM White Blood Count 5.8 # Red Blood Count 2.64 L Hemoglobin 8.9 L Hematocrit 27.3 L Mean Corpuscular Volume 103.4 H Mean Corpuscular Hemoglobin 33.7 H Mean Corpuscular Hemoglobin Concent 32.6 Red Cell Distribution Width 14.0 Platelet Count 48 #L Mean Platelet Volume 12.3 H Neutrophils % 85.4 H Lymphocytes % 5.7 L Monocytes % 2.6 Eosinophils % 0.0 Basophils % 0.0 Nucleated Red Blood Cells % 0.0 Neutrophils # 4.9 Lymphocytes # 0.3 L Monocytes # 0.2 L Eosinophils # 0.0 Basophils # 0.0 Nucleated Red Blood Cells # 0.0 Sodium Level 128 L Potassium Level 3.9 Chloride Level 85 #L Carbon Dioxide Level 28 Anion Gap 19 H Blood Urea Nitrogen 53 H Creatinine 7.02 H Glucose Level 207 Calcium Level 6.6 L Total Bilirubin 0.4 Direct Bilirubin 0.10 Indirect Bilirubin 0.3 Aspartate Amino Transf (AST/SGOT) > 7500 H Alanine Aminotransferase (ALT/SGPT) 5547 H Alkaline Phosphatase 41 L Total Protein 4.8 L Albumin 2.4 L Globulin 2.40 Albumin/Globulin Ratio 1.00 Medications Current Medications Folic Acid (Folic Acid) 1 mg DAILY PO Last administered on 05/01/17t 09:48; Admin Dose 1 MG; Start 04/30/17 at 09:00 Ondansetron HCl (Zofran Inj) 4 mg Q6H PRN IV NAUSEA AND/OR VOMITING; Start at 20:00 Nitroglycerin (Nitroglycerin (Sl Tab) 0.4 Mg) 1 tab Q5M PRN SL CHEST PAIN; Start 04/29/17 at 20:00 Acetaminophen (Tylenol Liquid) 650 mg Q6H PRN PO PAIN LEVEL 1-3 OR FEVER; Start 04/29/17 at 20:00 Acetaminophen (Tylenol Tab) 650 mg Q6H PRN PO PAIN LEVEL 1-3 OR FEVER; Start at 20:00 Acetaminophen/ Hydrocodone Bitart ([place] (5/325)) 1 tab Q6H PRN PO PAIN LEVEL 4 -6; Start 04/29/17 at 20:00 Zolpidem Tartrate (Ambien) 5 mg QHS PRN PO INSOMNIA; Start 04/29/17 at 20:00 Docusate Sodium (Colace) 100 mg Q12H PRN PO CONSTIPATION; Start 04/29/17 at 20: 00 Bisacodyl 5 mg 5 mg DAILY PRN PO CONSTIPATION; Start 04/29/17 at 20:00 Piperacillin Sod/ Tazobactam Sod (Zosyn 2.25gm/ 50ml (Pmx)) 50 ml @ 100 mls/hr Q8 IVPB Last administered on 05/01/17 05:26; Admin Dose 100 MLS/HR; Start at 06:00 Methylprednisolone Sodium Succinate (Solu-Medrol) 40 mg Q8 IV Last administered on 05/01/17 05:26; Admin Dose 40 MG; Start 04/30/17 at 06:00 Aspirin 325 mg 325 mg DAILY PO Last administered on 04/30/17 09:15; Admin Dose 325 MG; Start 04/30/17 at 09:00 Propofol 100 ml @ 2.25 mls/hr Q12H IV Last administered on 05/01/17 10:48; Admin Dose 2.25 MLS/HR; Start 04/29/17 at 23:00 Vasopressin 60 unit/Dextrose 60 ml @ 1.2 mls/hr Q12H IV Last administered on 01:07; Admin Dose 2.4 MLS/HR; Start 04/30/17 at 13:00 Dobutamine HCl/ Dextrose 250 ml @ 9.51 mls/hr TITRATE IV Last administered on 05/01/17 05:54; Admin Dose 28.53 MLS/HR; Start 04/30/17 at 13:00 Famotidine 20 mg 20 mg DAILY IV Last administered on 05/01/17 09:48; Admin Dose 20 MG; Start 05/01/17 at 09:00 Sodium Bicarbonate 150 meq/Dextrose 1,000 ml @ 150 mls/hr Q6H40M IV Last administered on 05/01/17 06:04; Admin Dose 150 MLS/HR; Start 04/30/17 at 16:00 Fentanyl 100 ml @ 5 mls/hr TITRATE IV Last administered on 05/01/17 05:55; Admin Dose 75 MLS/HR; Start 04/30/17 at 16:00 Phenylephrine HCl 80 mg/Dextrose 250 ml @ 18.75 mls/ hr TITRATE IV Last administered on 05/01/17 03:31; Admin Dose 16.87 MLS/HR; Start 04/30/17 at 18: 00 Norepinephrine/ Dextrose (Levophed/D5W) 250 ml @ 0.46 mls/hr TITRATE IV Last administered on 05/01/17 03:30; Admin Dose 7.03 MLS/HR; Start 04/30/17 at 18:00 Assessment/Plan Chief Complaint/Hosp Course pt with VF cardiac arrest, severe cardiogenic shock on multiple pressors, hx CABG, Renal failure on HD, ANEMIA. he is too unable to be taken to the [facility] now and is only on chemical code. card care as per DR ALVARADO. HEIDI MCBRIDE Problems: HEIDI MCBRIDE MD May 01, 2017 12:30
--- NOTE | 2017-05-01 13:05 | RADRPT ---
PROCEDURE: XR Chest. CLINICAL INDICATION: Shortness of breath. TECHNIQUE: Single frontal view. COMPARISON: 04/30/2017. FINDINGS: The endotracheal tube and nasogastric tube remain in satisfactory position. There are sternal wires. There is bilateral pulmonary airspace and interstitial disease consistent with pulmonary edema, imp roved on the right and worse on the left. The heart is enlarged. There is calcification in the aorta consistent with atherosclerosis. There are probable small bilateral pleural effusions. There is no pneumothorax. IMPRESSION: 1. Endotracheal tube and nasogastric tube in satisfactory position. 2. Previous median sternotomy. 3. Pulmonary edema, improved on the right and worse on the left. 4. Cardiomegaly and atherosclerosis. 5. Probable small bilateral pleural effusions. RPTAT: QQ .Solomon Mulligan MD, Date Time Electronically viewed and signed by .Solomon Mulligan MD, on 05/01/2017 13:05 .R/
--- NOTE | 2017-05-01 13:45 | CONS ---
Date/Time of Note Date/Time of Note DATE: 05/01/17 TIME: 13:20 Assessment/Plan Assessment/Plan Chief Complaint/Hosp Course This is a 87 y/o male with pmh of HTN, HLD, RF on HD, CAD and CABG x 20 yrs ago (1997) Presented to the hospital with VT at a rate of 220 bpm, with a RBBB and inferior axis. The pt required a shock and was sent to the ICU. Per lab notes, Trop was 30 on the day of admission. The pt later in the ICU, required to be intubated. The Echo was done yesterday, the pt has an EF of 30% with mild AI and Mild MR per ophthalmology technician. The ECG did not reveal ST elevation. The family wants everything to be done. He is now on 4 pressors, Levophed, vasopressin, Sean and Dobutamine. The pt is now receiving HD and the BP is 86 systolic. He is on 100% FIO2. 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 Problems: Additional Assessment/Plan The pt will need Abx. ABG Chest CT scan with NO contrast ECG in AM The Echo had revealed EF of 30%. The family wants everything to be done. Will need supprotive care and will need to have an angiogram once stable. Will need to cont the Heparin as well. Consultation Date/Type/Reason Admit Date/Time Apr 29, 2017 at 19:31 Reason for Consultation cardiogenic shock and VT and a second opinion per Dr. Burnham's request. Hx of Present Illness This is a 87 y/o male with pmh of HTN, HLD, RF on HD, CAD and CABG x 20 yrs ago (1997) Presented to the hospital with VT at a rate of 220 bpm, with a RBBB and inferior axis. The pt required a shock and was sent to the ICU. Per lab notes, Dr. Johnson had received a call from the lab stating that the Trop was 30. 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 The pt later in the ICU, required to be intubated. The Echo was done yesterday, the pt has an EF of 30% with mild AI and Mild MR per ophthalmology technician. The ECG did not reveal ST elevation. The family wants everything to be done. He is now on 4 pressors, Levophed, vasopressin, Sean and Dobutamine. The pt is now receiving HD and the BP is 86 systolic. He is on 100% FIO2. The pt is intubated and therefore, not talkative. Past Medical History Medical History: cancer, coronary artery disease, hypertension Past Surgical History Past Surgical Hx: coronary bypass surgery Social History Alcohol Use: none Smoking Status: Former smoker Drug Use: none Exam/Review of Systems Vital Signs Vitals Vital Signs Date Time Temp Pulse Resp B/P Pulse Ox O2 Delivery O2 Flow Rate FiO2 05/01/17 12:45 90 30 107/64 100 05/01/17 12:00 97.9 Mechanical Ventilator 05/01/17 08:00 100 04/29/17 20:16 15.0 Intake and Output 04/30/17 04/30/17 05/01/17 15:00 23:00 07:00 Intake Total 2065.59 ml 3088.98 ml 1919.01 ml Output Total 5 ml 0 ml 0 ml Balance 2060.59 ml 3088.98 ml 1919.01 ml Exam The pt is intubated Head: normocephalic Neck: supple Respiratory: crackles/rales Cardiovascular: S4, systolic murmur Results Result Diagram: 05/01/17 0350 05/01/17 0350 Results 24 hrs Laboratory Tests Test 04/30/17 14:17 04/30/17 20:50 05/01/17 03:50 05/01/17 11:32 Blood Gas Specimen Source Blood arterial Arterial Blood Date Drawn 04/30/2017 2:25:02 PM Arterial Blood pH (Temp corrected) 7.114 *L Arterial Blood pCO2 (Temp correct) 54.6 H Arterial Blood pO2 (Temp corrected) 80.2 Arterial Blood HCO3 17.1 L Arterial Blood Base Excess -12.1 L Arterial Blood Oxygen Saturation 92.4 L Hunter Test ACCEPTAB Arterial Blood Gas Puncture Site Right Radial Arterial Blood Carboxyhemoglobin 0 Arterial Blood Methemoglobin 0.1 Blood Gas A-a O2 Differential 578.2 H Oxyhemoglobin Percent 92.3 L Total Hemoglobin 10.8 L Blood Gas Temperature 37.0 Blood Gas Respiration Rate 30.0 Blood Gas Actual Respiration Rate 30 Blood Gas Modality VENT - AC FiO2 100.0 Blood Gas Tidal Volume 550.0 Blood Gas Critical Value Read Back NICOLE VELASQUEZ Blood Gas Notified Whom CW Blood Gas Notified Time 04/30/2017 2:40:41 PM Activated Partial Thromboplast Time 144.2 *H 92.2 *H 81.9 *H White Blood Count 5.8 # Red Blood Count 2.64 L Hemoglobin 8.9 L Hematocrit 27.3 L Mean Corpuscular Volume 103.4 H Mean Corpuscular Hemoglobin 33.7 H Mean Corpuscular Hemoglobin Concent 32.6 Red Cell Distribution Width 14.0 Platelet Count 48 #L Mean Platelet Volume 12.3 H Neutrophils % 85.4 H Lymphocytes % 5.7 L Monocytes % 2.6 Eosinophils % 0.0 Basophils % 0.0 Nucleated Red Blood Cells % 0.0 Neutrophils # 4.9 Lymphocytes # 0.3 L Monocytes # 0.2 L Eosinophils # 0.0 Basophils # 0.0 Nucleated Red Blood Cells # 0.0 Sodium Level 128 L Potassium Level 3.9 Chloride Level 85 #L Carbon Dioxide Level 28 Anion Gap 19 H Blood Urea Nitrogen 53 H Creatinine 7.02 H Glucose Level 207 Calcium Level 6.6 L Total Bilirubin 0.4 Direct Bilirubin 0.10 Indirect Bilirubin 0.3 Aspartate Amino Transf (AST/SGOT) > 7500 H Alanine Aminotransferase (ALT/SGPT) 5547 H Alkaline Phosphatase 41 L Total Protein 4.8 L Albumin 2.4 L Globulin 2.40 Albumin/Globulin Ratio 1.00 Medications Medications Current Medications Folic Acid (Folic Acid) 1 mg DAILY PO Last administered on 05/01/17t 09:48; Admin Dose 1 MG; Start 04/30/17 at 09:00 Ondansetron HCl (Zofran Inj) 4 mg Q6H PRN IV NAUSEA AND/OR VOMITING; Start at 20:00 Nitroglycerin (Nitroglycerin (Sl Tab) 0.4 Mg) 1 tab Q5M PRN SL CHEST PAIN; Start 04/29/17 at 20:00 Acetaminophen (Tylenol Liquid) 650 mg Q6H PRN PO PAIN LEVEL 1-3 OR FEVER; Start 04/29/17 at 20:00 Acetaminophen (Tylenol Tab) 650 mg Q6H PRN PO PAIN LEVEL 1-3 OR FEVER; Start at 20:00 Acetaminophen/ Hydrocodone Bitart ([place] (5/325)) 1 tab Q6H PRN PO PAIN LEVEL 4 -6; Start 04/29/17 at 20:00 Zolpidem Tartrate (Ambien) 5 mg QHS PRN PO INSOMNIA; Start 04/29/17 at 20:00 Docusate Sodium (Colace) 100 mg Q12H PRN PO CONSTIPATION; Start 04/29/17 at 20: 00 Bisacodyl 5 mg 5 mg DAILY PRN PO CONSTIPATION; Start 04/29/17 at 20:00 Piperacillin Sod/ Tazobactam Sod (Zosyn 2.25gm/ 50ml (Pmx)) 50 ml @ 100 mls/hr Q8 IVPB Last administered on 05/01/17 05:26; Admin Dose 100 MLS/HR; Start at 06:00 Methylprednisolone Sodium Succinate (Solu-Medrol) 40 mg Q8 IV Last administered on 05/01/17 05:26; Admin Dose 40 MG; Start 04/30/17 at 06:00 Aspirin 325 mg 325 mg DAILY PO Last administered on 04/30/17 09:15; Admin Dose 325 MG; Start 04/30/17 at 09:00 Propofol 100 ml @ 2.25 mls/hr Q12H IV Last administered on 05/01/17 10:48; Admin Dose 2.25 MLS/HR; Start 04/29/17 at 23:00 Vasopressin 60 unit/Dextrose 60 ml @ 1.2 mls/hr Q12H IV Last administered on 01:07; Admin Dose 2.4 MLS/HR; Start 04/30/17 at 13:00 Dobutamine HCl/ Dextrose 250 ml @ 9.51 mls/hr TITRATE IV Last administered on 05/01/17 05:54; Admin Dose 28.53 MLS/HR; Start 04/30/17 at 13:00 Famotidine 20 mg 20 mg DAILY IV Last administered on 05/01/17 09:48; Admin Dose 20 MG; Start 05/01/17 at 09:00 Sodium Bicarbonate 150 meq/Dextrose 1,000 ml @ 150 mls/hr Q6H40M IV Last administered on 05/01/17 06:04; Admin Dose 150 MLS/HR; Start 04/30/17 at 16:00 Fentanyl 100 ml @ 5 mls/hr TITRATE IV Last administered on 05/01/17 05:55; Admin Dose 75 MLS/HR; Start 04/30/17 at 16:00 Phenylephrine HCl 80 mg/Dextrose 250 ml @ 18.75 mls/ hr TITRATE IV Last administered on 05/01/17 03:31; Admin Dose 16.87 MLS/HR; Start 04/30/17 at 18: 00 Norepinephrine/ Dextrose (Levophed/D5W) 250 ml @ 0.46 mls/hr TITRATE IV Last administered on 05/01/17 03:30; Admin Dose 7.03 MLS/HR; Start 04/30/17 at 18:00 KEVIN PICKERING MD May 01, 2017 13:38
--- NOTE | 2017-05-01 15:04 | CONS ---
Date/Time of Note Date/Time of Note DATE: 05/01/17 TIME: 15:02 Consult Date/Type/Reason Admit Date/Time Apr 29, 2017 at 19:31 Initial Consult Date Type of Consultation: Pulm/CCM Subjective Remains on pressors/inotropic support on vent. Objective Vital Signs Date Time Temp Pulse Resp B/P Pulse Ox O2 Delivery O2 Flow Rate FiO2 05/01/17 14:45 87 30 115/46 100 05/01/17 14:00 Mechanical Ventilator 05/01/17 12:00 97.9 05/01/17 08:00 100 04/29/17 20:16 15.0 Intake and Output 04/30/17 04/30/17 05/01/17 15:00 23:00 07:00 Intake Total 2065.59 ml 3088.98 ml 1919.01 ml Output Total 5 ml 0 ml 0 ml Balance 2060.59 ml 3088.98 ml 1919.01 ml Exam HEENT: Neck supple; no JVD; no LAD ;JVD; + ET tube CVS: RRR, S1 and S2 and S3; 3/6 sys murmur CHEST: Clear ABD: Soft, NT, + BS EXT: No c/c/e Results/Medications Result Diagram: 05/01/17 0350 05/01/17 0350 Results 24 hrs Laboratory Tests Test 04/30/17 20:50 05/01/17 03:50 05/01/17 11:32 Activated Partial Thromboplast Time 144.2 *H 92.2 *H 81.9 *H White Blood Count 5.8 # Red Blood Count 2.64 L Hemoglobin 8.9 L Hematocrit 27.3 L Mean Corpuscular Volume 103.4 H Mean Corpuscular Hemoglobin 33.7 H Mean Corpuscular Hemoglobin Concent 32.6 Red Cell Distribution Width 14.0 Platelet Count 48 #L Mean Platelet Volume 12.3 H Neutrophils % 85.4 H Lymphocytes % 5.7 L Monocytes % 2.6 Eosinophils % 0.0 Basophils % 0.0 Nucleated Red Blood Cells % 0.0 Neutrophils # 4.9 Lymphocytes # 0.3 L Monocytes # 0.2 L Eosinophils # 0.0 Basophils # 0.0 Nucleated Red Blood Cells # 0.0 Sodium Level 128 L Potassium Level 3.9 Chloride Level 85 #L Carbon Dioxide Level 28 Anion Gap 19 H Blood Urea Nitrogen 53 H Creatinine 7.02 H Glucose Level 207 Calcium Level 6.6 L Total Bilirubin 0.4 Direct Bilirubin 0.10 Indirect Bilirubin 0.3 Aspartate Amino Transf (AST/SGOT) > 7500 H Alanine Aminotransferase (ALT/SGPT) 5547 H Alkaline Phosphatase 41 L Total Protein 4.8 L Albumin 2.4 L Globulin 2.40 Albumin/Globulin Ratio 1.00 Medications Current Medications Folic Acid (Folic Acid) 1 mg DAILY PO Last administered on 05/01/17 09:48; Admin Dose 1 MG; Start 04/30/17 at 09:00 Ondansetron HCl (Zofran Inj) 4 mg Q6H PRN IV NAUSEA AND/OR VOMITING; Start at 20:00 Nitroglycerin (Nitroglycerin (Sl Tab) 0.4 Mg) 1 tab Q5M PRN SL CHEST PAIN; Start 04/29/17 at 20:00 Acetaminophen (Tylenol Liquid) 650 mg Q6H PRN PO PAIN LEVEL 1-3 OR FEVER; Start 04/29/17 at 20:00 Acetaminophen (Tylenol Tab) 650 mg Q6H PRN PO PAIN LEVEL 1-3 OR FEVER; Start at 20:00 Acetaminophen/ Hydrocodone Bitart ([place] (5/325)) 1 tab Q6H PRN PO PAIN LEVEL 4 -6; Start 04/29/17 at 20:00 Zolpidem Tartrate (Ambien) 5 mg QHS PRN PO INSOMNIA; Start 04/29/17 at 20:00 Docusate Sodium (Colace) 100 mg Q12H PRN PO CONSTIPATION; Start 04/29/17 at 20: 00 Bisacodyl 5 mg 5 mg DAILY PRN PO CONSTIPATION; Start 04/29/17 at 20:00 Piperacillin Sod/ Tazobactam Sod (Zosyn 2.25gm/ 50ml (Pmx)) 50 ml @ 100 mls/hr Q8 IVPB Last administered on 05/01/17 05:26; Admin Dose 100 MLS/HR; Start at 06:00 Methylprednisolone Sodium Succinate (Solu-Medrol) 40 mg Q8 IV Last administered on 05/01/17 14:06; Admin Dose 40 MG; Start 04/30/17 at 06:00 Aspirin 325 mg 325 mg DAILY PO Last administered on 04/30/17 09:15; Admin Dose 325 MG; Start 04/30/17 at 09:00 Propofol 100 ml @ 2.25 mls/hr Q12H IV Last administered on 05/01/17 10:48; Admin Dose 2.25 MLS/HR; Start 04/29/17 at 23:00 Vasopressin 60 unit/Dextrose 60 ml @ 1.2 mls/hr Q12H IV Last administered on 01:07; Admin Dose 2.4 MLS/HR; Start 04/30/17 at 13:00 Dobutamine HCl/ Dextrose 250 ml @ 9.51 mls/hr TITRATE IV Last administered on 05/01/17 05:54; Admin Dose 28.53 MLS/HR; Start 04/30/17 at 13:00 Famotidine 20 mg 20 mg DAILY IV Last administered on 05/01/17 09:48; Admin Dose 20 MG; Start 05/01/17 at 09:00 Sodium Bicarbonate 150 meq/Dextrose 1,000 ml @ 150 mls/hr Q6H40M IV Last administered on 05/01/17 14:23; Admin Dose 150 MLS/HR; Start 04/30/17 at 16:00 Fentanyl 100 ml @ 5 mls/hr TITRATE IV Last administered on 05/01/17 05:55; Admin Dose 75 MLS/HR; Start 04/30/17 at 16:00 Phenylephrine HCl 80 mg/Dextrose 250 ml @ 18.75 mls/ hr TITRATE IV Last administered on 05/01/17 03:31; Admin Dose 16.87 MLS/HR; Start 04/30/17 at 18: 00 Norepinephrine/ Dextrose (Levophed/D5W) 250 ml @ 0.46 mls/hr TITRATE IV Last administered on 05/01/17 03:30; Admin Dose 7.03 MLS/HR; Start 04/30/17 at 18:00 Assessment/Plan Chief Complaint/Hosp Course Briefly, this is an 87 yo with HTN, CAD, CABG 1989 4V -0 per family presenting with V.tach/fib arrest likely due to a massive OK with associated refractory cardiogenic shock. Problems: Additional Assessment/Plan IMP: 1. Cardiogenic Shock 2. Acute OK 3. s/p V.fib/tach 4. Severe Met Acidosis due to CKD and lactic acidosis 5. Ischemic Hepatopathy RECS: 1. Pressor support and inotropic support 2. Vent support 3. HD as tolerated 4. NaHCO3 gtt 5. Repeat ABG 6. Prognosis poor 35 min cc time RY WONG MD May 01, 2017 15:04
[2017-05-01 15:44] LABS: AADO2 Arterial 349.7 mmHg (7.0-24.0); Allen Test ACCEPTAB; Arterial Base Excess 9.2 mmol/L (-3.0-3); Arterial COHb 0.3 % (0.0-3.0); Arterial Fraction of Oxyhgb 98.7 % (93.0-99.0); Arterial HCO3 32.9 mmol/L (22.0-26.0); Arterial MetHb 0.2 % (0.0-1.5); Arterial Total Hemglobin 8.9 g/dl (12.0-18.0); MODE VENT - AC
--- NOTE | 2017-05-01 15:51 | RADRPT ---
Vent Rate: 95 bpm RR Interval: 0 msec IN Interval: 0 msec QRS Duration: 72 msec QT Interval: 302 msec QTC Interval: 379 msec P-R-T [place]: 0 - 72 - 0 degrees normal sinus rhythm with occasional premature ventricular complexes and fusion complexes Low voltage QRS Septal infarct , age undetermined Abnormal ECG Electronically Signed By: Harrison Franks [id number]
--- NOTE | 2017-05-01 19:00 | PN ---
Date/Time of Note Date/Time of Note DATE: 05/01/17 TIME: 18:48 Assessment/Plan VTE Prophylaxis VTE Prophylaxis Intervention: other Lines/Catheters IV Catheter Type (from Nrs): Peripheral IV Urinary Cath still in place: No Assessment/Plan Chief Complaint/Hosp Course A/P NSTEMI S/P V TACH ESRD PUL EDEMA SHOCK LIVER PNEUMONIA SYS HEAR T FAILURE ANEMIA LOW PLATELET VDRF PLAN PER FAMILY FULL CODE PT VERY INDEPENDENT BEFORE COMING TO [facility] VERY ACTIVE CATH WHEN STABLE PER ADOPTION COUNSELOR DR CARTWRIGHT AND DR SQUIRES AND DR MURRAY WHEN PT MADE DNR PER [employer] ADOPTION COUNSELOR DECIDED TO HOLD CATH PER FAMILY THEY DID NOT COMPREHEND FULLY DNR AND OTHER OPTION THEY SPOKE W DR MURRAY NOW THEY WANT FULL CODE CONTINUE HD WHEN STABLE AND WEAN PRESSOR PRN Problems: Subjective 24 Hr Interval Summary Subjective hx not possible: other (d/w family and dr murray for 2 nd opinion cardio consult ,per dr stockton pt will benefit from cath when stable) Exam/Review of Systems Vital Signs Vitals Vital Signs Date Time Temp Pulse Resp B/P Pulse Ox O2 Delivery O2 Flow Rate FiO2 05/01/17 18:00 94 24 84/45 100 Mechanical Ventilator 05/01/17 17:25 50 05/01/17 16:00 98.4 04/29/17 20:16 15.0 Intake and Output 04/30/17 04/30/17 05/01/17 15:00 23:00 07:00 Intake Total 2065.59 ml 3088.98 ml 1919.01 ml Output Total 5 ml 0 ml 0 ml Balance 2060.59 ml 3088.98 ml 1919.01 ml Exam Respiratory: diminished breath sounds Cardiovascular: regular rate and rhythm Gastrointestinal: bowel sounds (+), soft Extremities: edema (+) Neurological: lethargic Results Result Diagram: 05/01/17 0350 05/01/17 0350 Results 24 hrs Laboratory Tests Test 04/30/17 20:50 05/01/17 03:50 05/01/17 11:32 05/01/17 15:05 Activated Partial Thromboplast Time 144.2 *H 92.2 *H 81.9 *H White Blood Count 5.8 # Red Blood Count 2.64 L Hemoglobin 8.9 L Hematocrit 27.3 L Mean Corpuscular Volume 103.4 H Mean Corpuscular Hemoglobin 33.7 H Mean Corpuscular Hemoglobin Concent 32.6 Red Cell Distribution Width 14.0 Platelet Count 48 #L Mean Platelet Volume 12.3 H Neutrophils % 85.4 H Lymphocytes % 5.7 L Monocytes % 2.6 Eosinophils % 0.0 Basophils % 0.0 Nucleated Red Blood Cells % 0.0 Neutrophils # 4.9 Lymphocytes # 0.3 L Monocytes # 0.2 L Eosinophils # 0.0 Basophils # 0.0 Nucleated Red Blood Cells # 0.0 Sodium Level 128 L Potassium Level 3.9 Chloride Level 85 #L Carbon Dioxide Level 28 Anion Gap 19 H Blood Urea Nitrogen 53 H Creatinine 7.02 H Glucose Level 207 Calcium Level 6.6 L Total Bilirubin 0.4 Direct Bilirubin 0.10 Indirect Bilirubin 0.3 Aspartate Amino Transf (AST/SGOT) > 7500 H Alanine Aminotransferase (ALT/SGPT) 5547 H Alkaline Phosphatase 41 L Total Protein 4.8 L Albumin 2.4 L Globulin 2.40 Albumin/Globulin Ratio 1.00 Blood Gas Specimen Source Blood arterial Arterial Blood Date Drawn 05/01/2017 3:35:16 PM Arterial Blood pH (Temp corrected) 7.516 H Arterial Blood pCO2 (Temp correct) 41.6 Arterial Blood pO2 (Temp corrected) 321.7 H Arterial Blood HCO3 32.9 H Arterial Blood Base Excess 9.2 H Arterial Blood Oxygen Saturation 99.2 Hunter Test ACCEPTAB Arterial Blood Gas Puncture Site Right Radial Arterial Blood Carboxyhemoglobin 0.3 Arterial Blood Methemoglobin 0.2 Blood Gas A-a O2 Differential 349.7 H Oxyhemoglobin Percent 98.7 Total Hemoglobin 8.9 L Blood Gas Temperature 37.0 Blood Gas Respiration Rate 30.0 Blood Gas Actual Respiration Rate 30 Blood Gas Modality VENT - AC FiO2 100.0 Blood Gas Tidal Volume 550.0 Blood Gas Notified Whom CW Blood Gas Notified Time 05/01/2017 3:44:21 PM Medications Medications Current Medications Folic Acid (Folic Acid) 1 mg DAILY PO Last administered on 05/01/17t 09:48; Admin Dose 1 MG; Start 04/30/17 at 09:00 Ondansetron HCl (Zofran Inj) 4 mg Q6H PRN IV NAUSEA AND/OR VOMITING; Start at 20:00 Nitroglycerin (Nitroglycerin (Sl Tab) 0.4 Mg) 1 tab Q5M PRN SL CHEST PAIN; Start 04/29/17 at 20:00 Acetaminophen (Tylenol Liquid) 650 mg Q6H PRN PO PAIN LEVEL 1-3 OR FEVER; Start 04/29/17 at 20:00 Acetaminophen (Tylenol Tab) 650 mg Q6H PRN PO PAIN LEVEL 1-3 OR FEVER; Start at 20:00 Acetaminophen/ Hydrocodone Bitart ([place] (5/325)) 1 tab Q6H PRN PO PAIN LEVEL 4 -6; Start 04/29/17 at 20:00 Zolpidem Tartrate (Ambien) 5 mg QHS PRN PO INSOMNIA; Start 04/29/17 at 20:00 Docusate Sodium (Colace) 100 mg Q12H PRN PO CONSTIPATION; Start 04/29/17 at 20: 00 Bisacodyl 5 mg 5 mg DAILY PRN PO CONSTIPATION; Start 04/29/17 at 20:00 Piperacillin Sod/ Tazobactam Sod (Zosyn 2.25gm/ 50ml (Pmx)) 50 ml @ 100 mls/hr Q8 IVPB Last administered on 05/01/17 14:45; Admin Dose 100 MLS/HR; Start at 06:00 Methylprednisolone Sodium Succinate (Solu-Medrol) 40 mg Q8 IV Last administered on 05/01/17 14:06; Admin Dose 40 MG; Start 04/30/17 at 06:00 Aspirin 325 mg 325 mg DAILY PO Last administered on 04/30/17 09:15; Admin Dose 325 MG; Start 04/30/17 at 09:00 Propofol 100 ml @ 2.25 mls/hr Q12H IV Last administered on 05/01/17 10:48; Admin Dose 2.25 MLS/HR; Start 04/29/17 at 23:00 Vasopressin 60 unit/Dextrose 60 ml @ 1.2 mls/hr Q12H IV Last administered on 01:07; Admin Dose 2.4 MLS/HR; Start 04/30/17 at 13:00 Dobutamine HCl/ Dextrose 250 ml @ 9.51 mls/hr TITRATE IV Last administered on 05/01/17 15:53; Admin Dose 28.53 MLS/HR; Start 04/30/17 at 13:00 Famotidine 20 mg 20 mg DAILY IV Last administered on 05/01/17 09:48; Admin Dose 20 MG; Start 05/01/17 at 09:00 Fentanyl 100 ml @ 5 mls/hr TITRATE IV Last administered on 05/01/17 17:25; Admin Dose 10 MLS/HR; Start 04/30/17 at 16:00 Phenylephrine HCl 80 mg/Dextrose 250 ml @ 18.75 mls/ hr TITRATE IV Last administered on 05/01/17 03:31; Admin Dose 16.87 MLS/HR; Start 04/30/17 at 18: 00 Norepinephrine/ Dextrose (Levophed/D5W) 250 ml @ 0.46 mls/hr TITRATE IV Last administered on 05/01/17 03:30; Admin Dose 7.03 MLS/HR; Start 04/30/17 at 18:00 YENNY WINSTON MD May 01, 2017 18:59
--- NOTE | 2017-05-01 21:52 | CONS ---
Date/Time of Note Date/Time of Note DATE: 05/01/17 TIME: 21:12 Assessment/Plan Assessment/Plan Chief Complaint/Hosp Course #Thrombocytopenia -this is most likely secondary to shock liver as evidenced by the markedly elevated AST/ALT (>7000/5000) -LDH markedly elevated which is likely secondary to shock liver but will check peripheral smear to make sure no evidence of microangiopathic hemolytic anemia -will check daily DIC panel and transfuse 1 unit cryo if fibrinogen is < 150. fibrinogen is currently 300. -would hold anticoagulation until platelet count is > 50K -given h/o NGT bleeding last night, will given 1 unit of platelets today #Anemia -2/2 shock, sepsis and questionable bleed -will give 2 units of PRBCs today #Cardiogenic shock with shock liver -management per cardiology -patient currently on pressors and ionotropic support #ESRD wit acidosis -pt now on Bicarb -continue HD as tolerated. currently blood pressure is very labile #Respiratory failure -currently intubated -cont management per pulmonary Problems: (1) NSTEMI (non-ST elevated myocardial infarction) Status: Acute (2) ESRD (end stage renal disease) on dialysis Status: Chronic (3) Laryngeal cancer Status: Resolved (4) Other secondary thrombocytopenia Status: Acute Consultation Date/Type/Reason Admit Date/Time Apr 29, 2017 at 19:31 Date of Consultation: May 02, 2017 Type of Consultation: hematology Reason for Consultation thrombocytopenia Referring Provider: YENNY WINSTON MD Hx of Present Illness 87 yo with HTN, CAD, 4V CABG 1988 who presented to [facility] on 04/29 with V.tach/fib arrest likely due to a massive AR with associated refractory cardiogenic shock. Pt is currently intubated on 3 pressors. Pt currently has a troponin > 130 and AST and ALT have dramatically risen to > 7500 and 5547. Since yesterday patient' s platelets have dropped from 116 to 48. Pt is not currently bleeding per nurse. heparin drip has since been held. Family wants everything done. Pt is now full code. Subjective hx not possible: pt non-verbal, pt critical Past Medical History Medical History: cancer (h/p throat cancer s/p chemo/rads), coronary artery disease, hypertension Past Surgical History Past Surgical Hx: coronary bypass surgery Family History Significant Family History: no pertinent family hx Social History Alcohol Use: none Smoking Status: Former smoker Drug Use: none Exam/Review of Systems Vital Signs Vitals Vital Signs Date Time Temp Pulse Resp B/P Pulse Ox O2 Delivery O2 Flow Rate FiO2 05/01/17 20:45 102 24 93/44 99 05/01/17 20:30 Mechanical Ventilator 05/01/17 20:00 60 05/01/17 19:45 98.7 04/29/17 20:16 15.0 Intake and Output 04/30/17 04/30/17 05/01/17 14:59 22:59 06:59 Intake Total 1863.19 ml 3165.33 ml 1893.39 ml Output Total 5 ml 0 ml 0 ml Balance 1858.19 ml 3165.33 ml 1893.39 ml Exam Constitutional: non-verbal ENMT: intubated Neck: supple Respiratory: diminished breath sounds Cardiovascular: regular rate and rhythm Gastrointestinal: soft Musculoskeletal: nl extremities to inspection Results Result Diagram: 05/01/17 0350 05/01/17 0350 Results 24 hrs Laboratory Tests Test 05/01/17 03:50 05/01/17 11:32 05/01/17 15:05 White Blood Count 5.8 # Red Blood Count 2.64 L Hemoglobin 8.9 L Hematocrit 27.3 L Mean Corpuscular Volume 103.4 H Mean Corpuscular Hemoglobin 33.7 H Mean Corpuscular Hemoglobin Concent 32.6 Red Cell Distribution Width 14.0 Platelet Count 48 #L Mean Platelet Volume 12.3 H Neutrophils % 85.4 H Lymphocytes % 5.7 L Monocytes % 2.6 Eosinophils % 0.0 Basophils % 0.0 Nucleated Red Blood Cells % 0.0 Neutrophils # 4.9 Lymphocytes # 0.3 L Monocytes # 0.2 L Eosinophils # 0.0 Basophils # 0.0 Nucleated Red Blood Cells # 0.0 Activated Partial Thromboplast Time 92.2 *H 81.9 *H Sodium Level 128 L Potassium Level 3.9 Chloride Level 85 #L Carbon Dioxide Level 28 Anion Gap 19 H Blood Urea Nitrogen 53 H Creatinine 7.02 H Glucose Level 207 Calcium Level 6.6 L Total Bilirubin 0.4 Direct Bilirubin 0.10 Indirect Bilirubin 0.3 Aspartate Amino Transf (AST/SGOT) > 7500 H Alanine Aminotransferase (ALT/SGPT) 5547 H Alkaline Phosphatase 41 L Total Protein 4.8 L Albumin 2.4 L Globulin 2.40 Albumin/Globulin Ratio 1.00 Blood Gas Specimen Source Blood arterial Arterial Blood Date Drawn 05/01/2017 3:35:16 PM Arterial Blood pH (Temp corrected) 7.516 H Arterial Blood pCO2 (Temp correct) 41.6 Arterial Blood pO2 (Temp corrected) 321.7 H Arterial Blood HCO3 32.9 H Arterial Blood Base Excess 9.2 H Arterial Blood Oxygen Saturation 99.2 Hunter Test ACCEPTAB Arterial Blood Gas Puncture Site Right Radial Arterial Blood Carboxyhemoglobin 0.3 Arterial Blood Methemoglobin 0.2 Blood Gas A-a O2 Differential 349.7 H Oxyhemoglobin Percent 98.7 Total Hemoglobin 8.9 L Blood Gas Temperature 37.0 Blood Gas Respiration Rate 30.0 Blood Gas Actual Respiration Rate 30 Blood Gas Modality VENT - AC FiO2 100.0 Blood Gas Tidal Volume 550.0 Blood Gas Notified Whom CW Blood Gas Notified Time 05/01/2017 3:44:21 PM Medications Medications Current Medications Folic Acid (Folic Acid) 1 mg DAILY PO Last administered on 05/01/17t 09:48; Admin Dose 1 MG; Start 04/30/17 at 09:00 Ondansetron HCl (Zofran Inj) 4 mg Q6H PRN IV NAUSEA AND/OR VOMITING; Start at 20:00 Nitroglycerin (Nitroglycerin (Sl Tab) 0.4 Mg) 1 tab Q5M PRN SL CHEST PAIN; Start 04/29/17 at 20:00 Acetaminophen (Tylenol Liquid) 650 mg Q6H PRN PO PAIN LEVEL 1-3 OR FEVER; Start 04/29/17 at 20:00 Acetaminophen (Tylenol Tab) 650 mg Q6H PRN PO PAIN LEVEL 1-3 OR FEVER; Start at 20:00 Acetaminophen/ Hydrocodone Bitart ([place] (5/325)) 1 tab Q6H PRN PO PAIN LEVEL 4 -6; Start 04/29/17 at 20:00 Zolpidem Tartrate (Ambien) 5 mg QHS PRN PO INSOMNIA; Start 04/29/17 at 20:00 Docusate Sodium (Colace) 100 mg Q12H PRN PO CONSTIPATION; Start 04/29/17 at 20: 00 Bisacodyl 5 mg 5 mg DAILY PRN PO CONSTIPATION; Start 04/29/17 at 20:00 Piperacillin Sod/ Tazobactam Sod (Zosyn 2.25gm/ 50ml (Pmx)) 50 ml @ 100 mls/hr Q8 IVPB Last administered on 05/01/17 14:45; Admin Dose 100 MLS/HR; Start at 06:00 Methylprednisolone Sodium Succinate (Solu-Medrol) 40 mg Q8 IV Last administered on 05/01/17 14:06; Admin Dose 40 MG; Start 04/30/17 at 06:00 Aspirin 325 mg 325 mg DAILY PO Last administered on 04/30/17 09:15; Admin Dose 325 MG; Start 04/30/17 at 09:00 Propofol 100 ml @ 2.25 mls/hr Q12H IV Last administered on 05/01/17 10:48; Admin Dose 2.25 MLS/HR; Start 04/29/17 at 23:00 Vasopressin 60 unit/Dextrose 60 ml @ 1.2 mls/hr Q12H IV Last administered on 01:07; Admin Dose 2.4 MLS/HR; Start 04/30/17 at 13:00 Dobutamine HCl/ Dextrose 250 ml @ 9.51 mls/hr TITRATE IV Last administered on 05/01/17 15:53; Admin Dose 28.53 MLS/HR; Start 04/30/17 at 13:00 Famotidine 20 mg 20 mg DAILY IV Last administered on 05/01/17 09:48; Admin Dose 20 MG; Start 05/01/17 at 09:00 Fentanyl 100 ml @ 5 mls/hr TITRATE IV Last administered on 05/01/17 17:25; Admin Dose 10 MLS/HR; Start 04/30/17 at 16:00 Phenylephrine HCl 80 mg/Dextrose 250 ml @ 18.75 mls/ hr TITRATE IV Last administered on 05/01/17 03:31; Admin Dose 16.87 MLS/HR; Start 04/30/17 at 18: 00 Norepinephrine/ Dextrose (Levophed/D5W) 250 ml @ 0.46 mls/hr TITRATE IV Last administered on 05/01/17 03:30; Admin Dose 7.03 MLS/HR; Start 04/30/17 at 18:00 JEFF HANSON M.D. May 01, 2017 21:23
[2017-05-01 23:04] LABS: PLATELET COUNT 34 10^3/UL (140-415)
[2017-05-01 23:10] LABS: INR 2.28
[2017-05-01 23:13] LABS: THROMBIN TIME 21.3 SEC (13.8-19.1)
[2017-05-01 23:16] LABS: PARTIAL THROMBOPLASTIN TIME 57.6 Sec (25.0-35.0)
[2017-05-01 23:31] LABS: FIBRIN SPLIT PRODUCT >10 and <40 ug/ml (<10)
[2017-05-02] VITALS (116 sets, daily range): BP systolic 76–150; BP diastolic 40–92; PULSE 87–124; RESP 16–27
[2017-05-02 00:07] LABS: PROTIME 25.4 Sec (12.2-14.2)
[2017-05-02 00:55] LABS: D-DIMER > 10000.00 ng/ml (<460)
[2017-05-02] MEDS: VASOPRESSIN 60 UNIT in DEXTROSE 5% 57 ML IV SCH ×2 (01:00→13:00)
[2017-05-02] MEDS: ALBUTEROL 18 GM INHALER INH SCH ×4 (01:39→19:56)
[2017-05-02] MEDS: IPRATROPIUM (HFA) 12.9 GM INHALER INH SCH ×4 (01:39→19:56)
[2017-05-02] MEDS: FENTAnyl (DRIP) 1000 mcg/100mL 100 ML IV SCH ×2 (02:42→23:20)
[2017-05-02] MEDS: NORepinephrine 32 MG in DEXTROSE 5% 218 ML IV SCH (02:45)
[2017-05-02 05:24] LABS: AADO2 Arterial 234.6 mmHg (7.0-24.0); Allen Test ACCEPTAB; Arterial Base Excess 3.2 mmol/L (-3.0-3); Arterial COHb 0.6 % (0.0-3.0); Arterial Fraction of Oxyhgb 93.5 % (93.0-99.0); Arterial HCO3 27.6 mmol/L (22.0-26.0); Arterial MetHb 0.1 % (0.0-1.5); Arterial Total Hemglobin 8.9 g/dl (12.0-18.0); MODE VENT - AC
[2017-05-02] MEDS: METHYLPREDNISOLONE 40 MG INJ IV SCH ×3 (05:40→21:49)
[2017-05-02] MEDS: PIPER-TAZO 2.25 GM (PMX) 50 ML IVPB SCH (05:40)
[2017-05-02] MEDS: DOBUTamine/D5W 1 MG/ML DRIP 250 ML IV SCH ×3 (05:49→20:06)
[2017-05-02 07:30] LABS: ABNORMAL IP MESSAGE 1; BASOPHIL # 0.1 10^3/ul (0.0-0.1); BASOPHILS % 0.4 % (0.0-2.0); HEMATOCRIT 23.6 % (42.0-52.0); HEMOGLOBIN 7.9 g/dl (14.0-18.0); LYMPHOCYTES # 0.3 10^3/ul (0.8-2.9); LYMPHOCYTES % 1.6 % (15.0-51.0); MEAN CORPUSCULAR HEMOGLOBIN 34.1 pg (29.0-33.0); MEAN CORPUSCULAR HGB CONC 33.5 g/dl (32.0-37.0); MEAN CORPUSCULAR VOLUME 101.7 fl (82.0-101.0); MEAN PLATELET VOLUME 12.2 fl (7.4-10.4); MONOCYTE # 0.4 10^3/ul (0.3-0.9); MONOCYTES % 2.5 % (0.0-11.0); NEUTROPHIL # 15.1 10^3/ul (1.6-7.5); NUCLEATED RED BLOOD CELLS # 0.1 10^3/ul (0.0-0.0); NUCLEATED RED BLOOD CELLS% 0.3 /100WBC (0.0-0.0); POSITIVE DIFF @See below; RED BLOOD COUNT 2.32 10^6/ul (4.70-6.10); RED CELL DISTRIBUTION WIDTH 14.7 % (11.5-14.5); WHITE BLOOD COUNT 15.9 10^3/ul (4.8-10.8)
[2017-05-02 07:37] LABS: NEUTROPHILS % 95.4 % (39.0-77.0); PLATELET COUNT 33 10^3/UL (140-415)
[2017-05-02] MEDS ORDERED: PANTOPRAZOLE 40 MG INJ IV ONE (08:00)
--- NOTE | 2017-05-02 08:14 | CONS ---
Date/Time of Note Date/Time of Note DATE: 05/02/17 TIME: 08:09 Assessment/Plan Assessment/Plan Additional Assessment/Plan 1. VT/VF - no new episodes now - likely dana-infarct phenomena - no new arrhythmia now. 2. CAD - s/p AMI, troponin high - infarct complete - at tihs point, risk of LHC is not justified - will con't supportive care - heparin gtt stopped, low platelets. Now with sign of bleed - hematology on the case - shocked liver likely - I'll add protonix IV now. 3. CHF - Syst HF, acute on chronic - HD as needed to remove fluids 4. ESRD - HD now, slow pull advised, DR. Winston follows. 5. Hypotension - on pressors now. Cardiogenic shock now. Poor prognosis. Not an invasive candidate now with low platelets. Consultation Date/Type/Reason Admit Date/Time Apr 29, 2017 at 19:31 Type of Consultation: hematology Referring Provider: YENNY WINSTON MD 24 HR Interval Summary Free Text/Dictation Now with high levo/bárbara gtt requirement - still mentating. Low platelets with GIB - con't supportive care. Not an invasive candidate now with low platelets. Will consider blood tx. ROS: No fever, no chills, no nausea, no vomiting, no diarrhea/constipation No recent weight changes No chest pain, no PND, no orthopnea No dizziness, blurred vision No thirst, no heat or cold intolerance (per nurse) Exam/Review of Systems Vital Signs Vitals Vital Signs Date Time Temp Pulse Resp B/P Pulse Ox O2 Delivery O2 Flow Rate FiO2 05/02/17 08:05 103 24 100 55 05/02/17 06:30 106/43 Mechanical Ventilator 05/02/17 04:00 99.0 04/29/17 20:16 15.0 Intake and Output 05/01/17 05/01/17 05/02/17 15:00 23:00 07:00 Intake Total 1956.33 ml 626.02 ml 608.63 ml Output Total 500 ml 0 ml 0 ml Balance 1456.33 ml 626.02 ml 608.63 ml Exam General: WN/WD/NAD, AOx 1-2? HEENT: Unicetric/atraumatic/EOMI (follow some commands) NECK: JVD elevated, no thyromegaly, intub Lymph: no lymphadenopathy HEART: regular with no S3, II/ systolic murmur at apex LUNGS: Coarse sounds ABD: soft, NT, ND, +BS : Intact Neuro: non focal SKIN: chronic changes EXT: trace edema Results Result Diagram: 05/02/17 0700 05/01/17 0350 Results 24 hrs Laboratory Tests Test 05/01/17 11:32 05/01/17 15:05 05/01/17 22:24 05/02/17 05:00 Activated Partial Thromboplast Time 81.9 *H 57.6 H Blood Gas Specimen Source Blood arterial Blood arterial Arterial Blood Date Drawn 05/01/2017 3:35:16 PM 05/02/2017 4:57:49 AM Arterial Blood pH (Temp corrected) 7.516 H 7.438 Arterial Blood pCO2 (Temp correct) 41.6 41.8 Arterial Blood pO2 (Temp corrected) 321.7 H 74.9 L Arterial Blood HCO3 32.9 H 27.6 H Arterial Blood Base Excess 9.2 H 3.2 H Arterial Blood Oxygen Saturation 99.2 94.2 L Hunter Test ACCEPTAB ACCEPTAB Arterial Blood Gas Puncture Site Right Radial Right Radial Arterial Blood Carboxyhemoglobin 0.3 0.6 Arterial Blood Methemoglobin 0.2 0.1 Blood Gas A-a O2 Differential 349.7 H 234.6 H Oxyhemoglobin Percent 98.7 93.5 Total Hemoglobin 8.9 L 8.9 L Blood Gas Temperature 37.0 37.0 Blood Gas Respiration Rate 30.0 24.0 Blood Gas Actual Respiration Rate 30 25 Blood Gas Modality VENT - AC VENT - AC FiO2 100.0 50.0 Blood Gas Tidal Volume 550.0 550.0 Blood Gas Notified Whom CW RTR Blood Gas Notified Time 05/01/2017 3:44:21 PM 05/02/2017 5:24:02 AM Platelet Count 34 L Prothrombin Time 25.4 #H Prothrombin Time Ratio 2.0 INR International Normalized Ratio 2.28 Thrombin Time 21.3 H Fibrinogen 341.0 Plasma Fibrin Degradation Products >10 and <40 H D-Dimer > 28546.00 H Lactate Dehydrogenase 7974 H Blood Gas Low PEEP Setting 5.0 Blood Gas Inspiratory Pressure 29.0 Test 05/02/17 07:00 White Blood Count 15.9 #H Red Blood Count 2.32 L Hemoglobin 7.9 L Hematocrit 23.6 L Mean Corpuscular Volume 101.7 H Mean Corpuscular Hemoglobin 34.1 H Mean Corpuscular Hemoglobin Concent 33.5 Red Cell Distribution Width 14.7 H Platelet Count 33 #L Mean Platelet Volume 12.2 H Neutrophils % 95.4 H Lymphocytes % 1.6 L Monocytes % 2.5 Eosinophils % 0.0 Basophils % 0.4 Nucleated Red Blood Cells % 0.3 H Neutrophils # 15.1 H Lymphocytes # 0.3 L Monocytes # 0.4 Eosinophils # 0.0 Basophils # 0.1 Nucleated Red Blood Cells # 0.1 H Medications Medications Current Medications Folic Acid (Folic Acid) 1 mg DAILY PO Last administered on 05/01/17t 09:48; Admin Dose 1 MG; Start 04/30/17 at 09:00 Ondansetron HCl (Zofran Inj) 4 mg Q6H PRN IV NAUSEA AND/OR VOMITING; Start at 20:00 Nitroglycerin (Nitroglycerin (Sl Tab) 0.4 Mg) 1 tab Q5M PRN SL CHEST PAIN; Start 04/29/17 at 20:00 Acetaminophen (Tylenol Liquid) 650 mg Q6H PRN PO PAIN LEVEL 1-3 OR FEVER; Start 04/29/17 at 20:00 Acetaminophen (Tylenol Tab) 650 mg Q6H PRN PO PAIN LEVEL 1-3 OR FEVER; Start at 20:00 Acetaminophen/ Hydrocodone Bitart ([place] (5/325)) 1 tab Q6H PRN PO PAIN LEVEL 4 -6; Start 04/29/17 at 20:00 Zolpidem Tartrate (Ambien) 5 mg QHS PRN PO INSOMNIA; Start 04/29/17 at 20:00 Docusate Sodium (Colace) 100 mg Q12H PRN PO CONSTIPATION; Start 04/29/17 at 20: 00 Bisacodyl 5 mg 5 mg DAILY PRN PO CONSTIPATION; Start 04/29/17 at 20:00 Piperacillin Sod/ Tazobactam Sod (Zosyn 2.25gm/ 50ml (Pmx)) 50 ml @ 100 mls/hr Q8 IVPB Last administered on 05/02/17t 05:40; Admin Dose 100 MLS/HR; Start at 06:00 Methylprednisolone Sodium Succinate (Solu-Medrol) 40 mg Q8 IV Last administered on 05/02/17 05:40; Admin Dose 40 MG; Start 04/30/17 at 06:00 Aspirin 325 mg 325 mg DAILY PO Last administered on 04/30/17 09:15; Admin Dose 325 MG; Start 04/30/17 at 09:00 Propofol 100 ml @ 2.25 mls/hr Q12H IV Last administered on 05/01/17 23:06; Admin Dose 4.5 MLS/HR; Start 04/29/17 at 23:00 Vasopressin 60 unit/Dextrose 60 ml @ 1.2 mls/hr Q12H IV Last administered on 01:07; Admin Dose 2.4 MLS/HR; Start 04/30/17 at 13:00 Dobutamine HCl/ Dextrose 250 ml @ 9.51 mls/hr TITRATE IV Last administered on 05/02/17 05:49; Admin Dose 38.04 MLS/HR; Start 04/30/17 at 13:00 Famotidine 20 mg 20 mg DAILY IV Last administered on 05/01/17 09:48; Admin Dose 20 MG; Start 05/01/17 at 09:00 Fentanyl 100 ml @ 5 mls/hr TITRATE IV Last administered on 05/02/17 02:42; Admin Dose 5 MLS/HR; Start 04/30/17 at 16:00 Phenylephrine HCl 80 mg/Dextrose 250 ml @ 18.75 mls/ hr TITRATE IV Last administered on 05/01/17 03:31; Admin Dose 16.87 MLS/HR; Start 04/30/17 at 18: 00 Norepinephrine/ Dextrose (Levophed/D5W) 250 ml @ 0.46 mls/hr TITRATE IV Last administered on 05/02/17 02:45; Admin Dose 14.06 MLS/HR; Start 04/30/17 at 18: 00 Pantoprazole (Protonix Iv) 40 mg BID@,18 IV ; Start 05/02/17 at 18:00 CANDACE CARTWRIGHT MD May 02, 2017 08:14
[2017-05-02 08:37] LABS: ALBUMIN 2.5 g/dl (3.3-4.9); ALBUMIN/GLOBULIN RATIO 1.04; BILIRUBIN,DIRECT 1.5 mg/dl (0.00-0.20); BILIRUBIN,INDIRECT 0.8 mg/dl (0-1.1); BILIRUBIN,TOTAL 2.3 mg/dl (0.2-1.3); CALCIUM 6.6 mg/dl (8.4-10.2); CREATININE 5.12 mg/dl (0.61-1.24); POTASSIUM 4.4 mmol/L (3.5-5.1); TOTAL PROTEIN 4.9 g/dl (6.1-8.1)
[2017-05-02] MEDS: DIPHENHYDRAMINE 50 MG INJ IV PRN ×3 (08:41→19:57)
[2017-05-02] MEDS: ASPIRIN 325 MG TAB PO SCH (09:00)
--- NOTE | 2017-05-02 09:30 | CONS ---
Date/Time of Note Date/Time of Note DATE: 05/02/17 TIME: 09:26 Assessment/Plan Assessment/Plan Additional Assessment/Plan Ventilator setting; AC of 24, tidal volume 550, PEEP of 5, 55% FiO2. Patient on dobutamine drip at 10 mics micrograms per minute, Levophed 30 mics per minute, phenylephrine 80 mics per minute, fentanyl 50 mics per hour. Assessment and recommendations; 1. Patient admitted with respiratory failure due to cardiac shock. 2. Chronic renal failure 3. Thrombocytopenia. 4. Anemia. 5. Cardiac arrhythmia. 6. Coronary artery disease with prior CABG. Continue current supportive care. Prognosis is poor. I did have a detailed discussion the patient's daughter and answered all her questions. 35 minutes of critical care time was spent evaluating the patient. Consultation Date/Type/Reason Admit Date/Time Apr 29, 2017 at 19:31 Initial Consult Date 05/01/17 Type of Consultation: Pulmonary/critical care Referring Provider: YENNY WINSTON MD 24 HR Interval Summary Free Text/Dictation Patient condition remains extremely critical. On multiple pressor agents for severe shock. General exam; elderly male, orally intubated, sedated. Currently in no distress. Exam/Review of Systems Vital Signs Vitals Vital Signs Date Time Temp Pulse Resp B/P Pulse Ox O2 Delivery O2 Flow Rate FiO2 05/02/17 08:05 103 24 100 55 05/02/17 06:30 106/43 Mechanical Ventilator 05/02/17 04:00 99.0 04/29/17 20:16 15.0 Intake and Output 05/01/17 05/01/17 05/02/17 15:00 23:00 07:00 Intake Total 1956.33 ml 626.02 ml 608.63 ml Output Total 500 ml 0 ml 0 ml Balance 1456.33 ml 626.02 ml 608.63 ml Exam HEENT exam; supple, positive JVD. No lymphadenopathy. Midline trachea. No thyromegaly. Bilateral intraocular lens implants are present. Patient has multiple carious teeth. Orally intubated. Chest exam; diminished breath sounds bilaterally. S1-S2 audible, no murmurs. Abdomen exam; soft, bowel sounds are absent. No organomegaly felt. Extremity exam; no edema. [employer]ER exam; patient is sedated. Results Result Diagram: 05/02/17 0700 05/02/17 0700 Results 24 hrs Laboratory Tests Test 9/17/17 11:32 05/01/17 15:05 05/01/17 22:24 05/02/17 05:00 Activated Partial Thromboplast Time 81.9 *H 57.6 H Blood Gas Specimen Source Blood arterial Blood arterial Arterial Blood Date Drawn 05/01/2017 3:35:16 PM 05/02/2017 4:57:49 AM Arterial Blood pH (Temp corrected) 7.516 H 7.438 Arterial Blood pCO2 (Temp correct) 41.6 41.8 Arterial Blood pO2 (Temp corrected) 321.7 H 74.9 L Arterial Blood HCO3 32.9 H 27.6 H Arterial Blood Base Excess 9.2 H 3.2 H Arterial Blood Oxygen Saturation 99.2 94.2 L Hunter Test ACCEPTAB ACCEPTAB Arterial Blood Gas Puncture Site Right Radial Right Radial Arterial Blood Carboxyhemoglobin 0.3 0.6 Arterial Blood Methemoglobin 0.2 0.1 Blood Gas A-a O2 Differential 349.7 H 234.6 H Oxyhemoglobin Percent 98.7 93.5 Total Hemoglobin 8.9 L 8.9 L Blood Gas Temperature 37.0 37.0 Blood Gas Respiration Rate 30.0 24.0 Blood Gas Actual Respiration Rate 30 25 Blood Gas Modality VENT - AC VENT - AC FiO2 100.0 50.0 Blood Gas Tidal Volume 550.0 550.0 Blood Gas Notified Whom CW RTR Blood Gas Notified Time 05/01/2017 3:44:21 PM 05/02/2017 5:24:02 AM Platelet Count 34 L Prothrombin Time 25.4 #H Prothrombin Time Ratio 2.0 INR International Normalized Ratio 2.28 Thrombin Time 21.3 H Fibrinogen 341.0 Plasma Fibrin Degradation Products >10 and <40 H D-Dimer > 28652.00 H Lactate Dehydrogenase 7974 H Blood Gas Low PEEP Setting 5.0 Blood Gas Inspiratory Pressure 29.0 Test 05/02/17 06:51 05/02/17 07:00 Lactic Acid Level 10.8 *H White Blood Count 15.9 #H Red Blood Count 2.32 L Hemoglobin 7.9 L Hematocrit 23.6 L Mean Corpuscular Volume 101.7 H Mean Corpuscular Hemoglobin 34.1 H Mean Corpuscular Hemoglobin Concent 33.5 Red Cell Distribution Width 14.7 H Platelet Count 33 #L Mean Platelet Volume 12.2 H Neutrophils % 95.4 H Lymphocytes % 1.6 L Monocytes % 2.5 Eosinophils % 0.0 Basophils % 0.4 Nucleated Red Blood Cells % 0.3 H Neutrophils # 15.1 H Lymphocytes # 0.3 L Monocytes # 0.4 Eosinophils # 0.0 Basophils # 0.1 Nucleated Red Blood Cells # 0.1 H Sodium Level 136 Potassium Level 4.4 Chloride Level 90 L Carbon Dioxide Level 30 Anion Gap 20 H Blood Urea Nitrogen 38 #H Creatinine 5.12 H Glucose Level 89 # Calcium Level 6.6 L Total Bilirubin 2.3 H Direct Bilirubin 1.50 #H Indirect Bilirubin 0.8 Aspartate Amino Transf (AST/SGOT) Pending Alanine Aminotransferase (ALT/SGPT) Pending Alkaline Phosphatase 51 Total Protein 4.9 L Albumin 2.5 L Globulin 2.40 Albumin/Globulin Ratio 1.04 Medications Medications Current Medications Folic Acid (Folic Acid) 1 mg DAILY PO Last administered on 05/01/17t 09:48; Admin Dose 1 MG; Start 04/30/17 at 09:00 Ondansetron HCl (Zofran Inj) 4 mg Q6H PRN IV NAUSEA AND/OR VOMITING; Start at 20:00 Nitroglycerin (Nitroglycerin (Sl Tab) 0.4 Mg) 1 tab Q5M PRN SL CHEST PAIN; Start 04/29/17 at 20:00 Acetaminophen (Tylenol Liquid) 650 mg Q6H PRN PO PAIN LEVEL 1-3 OR FEVER; Start 04/29/17 at 20:00 Acetaminophen (Tylenol Tab) 650 mg Q6H PRN PO PAIN LEVEL 1-3 OR FEVER; Start at 20:00 Acetaminophen/ Hydrocodone Bitart ([place] (5/325)) 1 tab Q6H PRN PO PAIN LEVEL 4 -6; Start 04/29/17 at 20:00 Zolpidem Tartrate (Ambien) 5 mg QHS PRN PO INSOMNIA; Start 04/29/17 at 20:00 Docusate Sodium (Colace) 100 mg Q12H PRN PO CONSTIPATION; Start 04/29/17 at 20: 00 Bisacodyl 5 mg 5 mg DAILY PRN PO CONSTIPATION; Start 04/29/17 at 20:00 Piperacillin Sod/ Tazobactam Sod (Zosyn 2.25gm/ 50ml (Pmx)) 50 ml @ 100 mls/hr Q8 IVPB Last administered on 05/02/17 05:40; Admin Dose 100 MLS/HR; Start at 06:00 Methylprednisolone Sodium Succinate (Solu-Medrol) 40 mg Q8 IV Last administered on 05/02/17 05:40; Admin Dose 40 MG; Start 04/30/17 at 06:00 Aspirin 325 mg 325 mg DAILY PO Last administered on 04/30/17 09:15; Admin Dose 325 MG; Start 04/30/17 at 09:00 Propofol 100 ml @ 2.25 mls/hr Q12H IV Last administered on 05/01/17 23:06; Admin Dose 4.5 MLS/HR; Start 04/29/17 at 23:00 Vasopressin 60 unit/Dextrose 60 ml @ 1.2 mls/hr Q12H IV Last administered on 01:07; Admin Dose 2.4 MLS/HR; Start 04/30/17 at 13:00 Dobutamine HCl/ Dextrose 250 ml @ 9.51 mls/hr TITRATE IV Last administered on 05/02/17 05:49; Admin Dose 38.04 MLS/HR; Start 04/30/17 at 13:00 Famotidine 20 mg 20 mg DAILY IV Last administered on 05/01/17 09:48; Admin Dose 20 MG; Start 05/01/17 at 09:00 Fentanyl 100 ml @ 5 mls/hr TITRATE IV Last administered on 05/02/17 02:42; Admin Dose 5 MLS/HR; Start 04/30/17 at 16:00 Phenylephrine HCl 80 mg/Dextrose 250 ml @ 18.75 mls/ hr TITRATE IV Last administered on 05/01/17 03:31; Admin Dose 16.87 MLS/HR; Start 04/30/17 at 18: 00 Norepinephrine/ Dextrose (Levophed/D5W) 250 ml @ 0.46 mls/hr TITRATE IV Last administered on 05/02/17 02:45; Admin Dose 14.06 MLS/HR; Start 04/30/17 at 18: 00 Pantoprazole (Protonix Iv) 40 mg BID@06,18 IV ; Start 05/02/17 at 18:00 Diphenhydramine HCl (Benadryl) 25 mg Q4H PRN IV ITCHING Last administered on t 08:41; Admin Dose 25 MG; Start 05/02/17 at 08:30 CHARLES EMMANUEL May 02, 2017 09:30
--- NOTE | 2017-05-02 09:57 | PN ---
Date/Time of Note Date/Time of Note DATE: 05/02/17 TIME: 09:45 Assessment/Plan VTE Prophylaxis VTE Prophylaxis Intervention: contraindicated VTE Contraindication Reason: bleeding, heparin induced thrombocytopenia Lines/Catheters IV Catheter Type (from Nrsg): Peripheral IV Central line still needed: Yes Urinary Cath still in place: No Assessment/Plan Chief Complaint/Hosp Course 87 y/o with # s/p V Tachy/V Fib likely secondary to ischemia # Cardiogenic shock with AMI with Tropinins 150 on 3 pressors # ESRD on HD thru fistula # Acute on chronic heart failure # Shock liver # Lactic acidosis # Respiratory failure on Vent # Thrombocytopenia # Anemia Recs - Spoke to Dr May will give 2 units of blood and 1 unit platelets - DIC panel - Repeat CBC after 2 units PRBC and platelets - c/w Hold Heparin due to thrombocytopenia - d/c pepcid, c/w protonix - Spoke with Dr Rivera regarding possible intervention Problems: Subjective 24 Hr Interval Summary Free Text/Dictation Currently on Levophed 30 and Dobutamine 10 and Phenylepinephrine was 90 s/p HD yesterday Fi02 50% Some bleeding from NG tube Exam/Review of Systems Vital Signs Vitals Vital Signs Date Time Temp Pulse Resp B/P Pulse Ox O2 Delivery O2 Flow Rate FiO2 05/02/17 09:32 89 24 100 55 05/02/17 06:30 106/43 Mechanical Ventilator 05/02/17 04:00 99.0 04/29/17 20:16 15.0 Intake and Output 05/01/17 05/01/17 05/02/17 15:00 23:00 07:00 Intake Total 1956.33 ml 626.02 ml 608.63 ml Output Total 500 ml 0 ml 0 ml Balance 1456.33 ml 626.02 ml 608.63 ml Exam General:Intubated, sedated NECK: JVD elevated, no thyromegaly, intub Lymph: no lymphadenopathy HEART: regular with no S3, BRANDI LUNGS: Coarse sounds ABD: soft, NT, ND, +BS Neuro: non focal SKIN: chronic changes EXT: trace edema Results Result Diagram: 05/02/17 0700 05/02/17 0700 Results 24 hrs Laboratory Tests Test 05/01/17 11:32 05/01/17 15:05 05/01/17 22:24 05/02/17 05:00 Activated Partial Thromboplast Time 81.9 *H 57.6 H Blood Gas Specimen Source Blood arterial Blood arterial Arterial Blood Date Drawn 05/01/2017 3:35:16 PM 05/02/2017 4:57:49 AM Arterial Blood pH (Temp corrected) 7.516 H 7.438 Arterial Blood pCO2 (Temp correct) 41.6 41.8 Arterial Blood pO2 (Temp corrected) 321.7 H 74.9 L Arterial Blood HCO3 32.9 H 27.6 H Arterial Blood Base Excess 9.2 H 3.2 H Arterial Blood Oxygen Saturation 99.2 94.2 L Hunter Test ACCEPTAB ACCEPTAB Arterial Blood Gas Puncture Site Right Radial Right Radial Arterial Blood Carboxyhemoglobin 0.3 0.6 Arterial Blood Methemoglobin 0.2 0.1 Blood Gas A-a O2 Differential 349.7 H 234.6 H Oxyhemoglobin Percent 98.7 93.5 Total Hemoglobin 8.9 L 8.9 L Blood Gas Temperature 37.0 37.0 Blood Gas Respiration Rate 30.0 24.0 Blood Gas Actual Respiration Rate 30 25 Blood Gas Modality VENT - AC VENT - AC FiO2 100.0 50.0 Blood Gas Tidal Volume 550.0 550.0 Blood Gas Notified Whom CW RTR Blood Gas Notified Time 05/01/2017 3:44:21 PM 05/02/2017 5:24:02 AM Platelet Count 34 L Prothrombin Time 25.4 #H Prothrombin Time Ratio 2.0 INR International Normalized Ratio 2.28 Thrombin Time 21.3 H Fibrinogen 341.0 Plasma Fibrin Degradation Products >10 and <40 H D-Dimer > 33118.00 H Lactate Dehydrogenase 7974 H Blood Gas Low PEEP Setting 5.0 Blood Gas Inspiratory Pressure 29.0 Test 05/02/17 06:51 05/02/17 07:00 Lactic Acid Level 10.8 *H White Blood Count 15.9 #H Red Blood Count 2.32 L Hemoglobin 7.9 L Hematocrit 23.6 L Mean Corpuscular Volume 101.7 H Mean Corpuscular Hemoglobin 34.1 H Mean Corpuscular Hemoglobin Concent 33.5 Red Cell Distribution Width 14.7 H Platelet Count 33 #L Mean Platelet Volume 12.2 H Neutrophils % 95.4 H Lymphocytes % 1.6 L Monocytes % 2.5 Eosinophils % 0.0 Basophils % 0.4 Nucleated Red Blood Cells % 0.3 H Neutrophils # 15.1 H Lymphocytes # 0.3 L Monocytes # 0.4 Eosinophils # 0.0 Basophils # 0.1 Nucleated Red Blood Cells # 0.1 H Sodium Level 136 Potassium Level 4.4 Chloride Level 90 L Carbon Dioxide Level 30 Anion Gap 20 H Blood Urea Nitrogen 38 #H Creatinine 5.12 H Glucose Level 89 # Calcium Level 6.6 L Total Bilirubin 2.3 H Direct Bilirubin 1.50 #H Indirect Bilirubin 0.8 Aspartate Amino Transf (AST/SGOT) 2838 H Alanine Aminotransferase (ALT/SGPT) 3340 H Alkaline Phosphatase 51 Total Protein 4.9 L Albumin 2.5 L Globulin 2.40 Albumin/Globulin Ratio 1.04 Medications Medications Current Medications Folic Acid (Folic Acid) 1 mg DAILY PO Last administered on 05/01/17 09:48; Admin Dose 1 MG; Start 04/30/17 at 09:00 Ondansetron HCl (Zofran Inj) 4 mg Q6H PRN IV NAUSEA AND/OR VOMITING; Start at 20:00 Nitroglycerin (Nitroglycerin (Sl Tab) 0.4 Mg) 1 tab Q5M PRN SL CHEST PAIN; Start 04/29/17 at 20:00 Acetaminophen (Tylenol Liquid) 650 mg Q6H PRN PO PAIN LEVEL 1-3 OR FEVER; Start 04/29/17 at 20:00 Acetaminophen (Tylenol Tab) 650 mg Q6H PRN PO PAIN LEVEL 1-3 OR FEVER; Start at 20:00 Acetaminophen/ Hydrocodone Bitart ([place] (5/325)) 1 tab Q6H PRN PO PAIN LEVEL 4 -6; Start 04/29/17 at 20:00 Zolpidem Tartrate (Ambien) 5 mg QHS PRN PO INSOMNIA; Start 04/29/17 at 20:00 Docusate Sodium (Colace) 100 mg Q12H PRN PO CONSTIPATION; Start 04/29/17 at 20: 00 Bisacodyl 5 mg 5 mg DAILY PRN PO CONSTIPATION; Start 04/29/17 at 20:00 Piperacillin Sod/ Tazobactam Sod (Zosyn 2.25gm/ 50ml (Pmx)) 50 ml @ 100 mls/hr Q8 IVPB Last administered on 05/02/17 05:40; Admin Dose 100 MLS/HR; Start at 06:00 Methylprednisolone Sodium Succinate (Solu-Medrol) 40 mg Q8 IV Last administered on 05/02/17 05:40; Admin Dose 40 MG; Start 04/30/17 at 06:00 Aspirin 325 mg 325 mg DAILY PO Last administered on 04/30/17 09:15; Admin Dose 325 MG; Start 04/30/17 at 09:00 Propofol 100 ml @ 2.25 mls/hr Q12H IV Last administered on 05/01/17 23:06; Admin Dose 4.5 MLS/HR; Start 04/29/17 at 23:00 Vasopressin 60 unit/Dextrose 60 ml @ 1.2 mls/hr Q12H IV Last administered on 01:07; Admin Dose 2.4 MLS/HR; Start 04/30/17 at 13:00 Dobutamine HCl/ Dextrose 250 ml @ 9.51 mls/hr TITRATE IV Last administered on 05/02/17 05:49; Admin Dose 38.04 MLS/HR; Start 04/30/17 at 13:00 Famotidine 20 mg 20 mg DAILY IV Last administered on 05/01/17 09:48; Admin Dose 20 MG; Start 05/01/17 at 09:00 Fentanyl 100 ml @ 5 mls/hr TITRATE IV Last administered on 05/02/17 02:42; Admin Dose 5 MLS/HR; Start 04/30/17 at 16:00 Phenylephrine HCl 80 mg/Dextrose 250 ml @ 18.75 mls/ hr TITRATE IV Last administered on 05/01/17 03:31; Admin Dose 16.87 MLS/HR; Start 04/30/17 at 18: 00 Norepinephrine/ Dextrose (Levophed/D5W) 250 ml @ 0.46 mls/hr TITRATE IV Last administered on 05/02/17 02:45; Admin Dose 14.06 MLS/HR; Start 04/30/17 at 18: 00 Pantoprazole (Protonix Iv) 40 mg BID@06,18 IV ; Start 05/02/17 at 18:00 Diphenhydramine HCl (Benadryl) 25 mg Q4H PRN IV ITCHING Last administered on 08:41; Admin Dose 25 MG; Start 05/02/17 at 08:30 ARNULFO BLEVINS MD May 02, 2017 09:57
--- NOTE | 2017-05-02 10:00 | RADRPT ---
Echocardiogram Report Patient Name: ELIJAH BALLARD Gender: Male Date: 1930 Study Date: 30-Apr-2017 Hr Administrator: FLORINDA Location: I Ref. Physician: YENNY WINSTON Quality: Adequate Procedures: Transthoracic echocardiogram examination. Indications: Coronary Artery Disease. 2D/M Mode Doppler Measurement Value Normal Range Measurement Value Normal Range IVSd 2D 1.6 0.6 - 1.1 cm AV Peak [place] 1.2 m/sec LA Dimen 2D 3.7 2.3 - 4.0 cm AV Peak PG 5.9 mmHg LVOT Peak [place] 0.8 m/sec MV E Peak Malcom 1.3 m/sec MV A Peak Malcom 0.8 m/sec MV E/A 1.5 MV Decel Time 167 msec MV Decel [place] 8 MV E/A 1.5 Findings Left Ventricle: Normal left ventricular cavity size. Severe global left ventricular systolic dysfunction. Tissue Doppler/Mitral Doppler indices are consistent with pseudonormalization with mildly elevated left atrial pressure (Stage II diastolic dysfunction), patient cannot Valsalva. Mild concentric left ventricular hypertrophy. The left ventricular ejection fraction is visually estimated at 20 %. Right Ventricle: Normal right ventricular size. Left Atrium: The left atrium is normal in size and appearance. Right Atrium: The right atrium is normal in size and appearance. Atrial Septum: Normal atrial septum. Mitral Valve: Normal appearance of the mitral valve leaflets. No mitral valve regurgitation is seen. Aortic Valve: Normal appearance of the aortic valve, imaged only from apical views. Trace aortic regurgitation. Tricuspid Valve: Normal appearance of the tricuspid valve. No evidence of tricuspid regurgitation. Pulmonic Valve: The pulmonic valve is not well visualized. Pericardium: Normal pericardium with no significant pericardial effusion. Right pleural effusion seen. Aorta: Normal aortic root, imaged only from apical views. IVC: Inferior vena cava without respiratory collapse, however, patient on ventilator. Pulmonary Artery: Pulmonary artery is not well visualized. Conclusions 1.Normal left ventricular cavity size. Severe global left ventricular systolic dysfunction. Tissue Doppler/Mitral Doppler indices are consistent with pseudonormalization with mildly elevated left atrial pressure (Stage II diastolic dysfunction), patient cannot Valsalva. Mild concentric left ventricular hypertrophy. The left ventricular ejection fraction is visually estimated at 20 %. 2.Normal appearance of the tricuspid valve. No evidence of tricuspid regurgitation. 3.Normal appearance of the mitral valve leaflets. No mitral valve regurgitation is seen. Electronically Signed By: Richard Dejesus 02-May-2017 09:59:43 -0700 Patient Name: ELIJAH BALLARD Study Date: 30-Apr-2017 [id number]
[2017-05-02] MEDS: FOLIC ACID 1 MG TAB PO SCH (10:45)
--- NOTE | 2017-05-02 11:47 | HP ---
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 Patient has AV fistula, left lower extremity, recently had AV fistula intervention. After that, patient developed back pain and was admitted to hospital, and presents today with shortness of breath. In the ER, patient was seen and was shocked by Dr. Johnson and started on amiodarone drip and transferred to ICU for further management. Patient himself is unable to give any detailed history because of respiratory insufficiency and weakness. Patient's family is at the bedside. Patient was seen in the ER. PAST MEDICAL HISTORY: Positive for hypertension, ESRD, anemia, laryngeal cancer status post chemoradiation, , GERD, anxiety, insomnia, dyslipidemia. ALLERGIES: NEGATIVE. FAMILY HISTORY: Hypertension, CKD, diabetes. PAST SURGICAL HISTORY: Positive for laryngeal cancer, status post surgery and chemoradiation, history of AV fistula placement. MEDICATIONS: Patient at home is on: 1. Doxazocin. 2. Folic acid. 3. Losartan. 4. Protonix. 5. Topamax. REVIEW OF SYSTEMS: Limited PHYSICAL EXAMINATION: GENERAL: Patient awake, alert, anxious. Mildly short of breath. VITAL SIGNS: Pulse 74 blood pressure 128/72. HEENT: Head is atraumatic, normocephalic. . NECK: Supple. LUNGS: Rhonchi. CVS: S1, S2 are normal. ABDOMEN: Soft, nontender. Bowel sounds present. EXTREMITIES: No cyanosis or clubbing. Trace edema. TICKET TAKER FERRYBOAT: Patient is awake, alert, weak at times. DATA: Sodium 141, potassium 4.5. Troponin . Hematocrit 30.9. IMPRESSION: 1. Patient has ventricular tachycardia. 2. Status post shock with positive troponin. 3. [id number] myocardial infarction. 4. Hypertension. 5. History of end-stage renal disease. 6. Anemia. 7. Lung infiltrate. 8. History of laryngeal cancer. 9. History of _fistulogram and pci in the past. 10. Respiratory insufficiency. PLAN: admit _ this patient, with cardiology consultation. with bronchodilator, antibiotic and see order. Troponin and 2D echo. Orders were done. Dictated By: Danny Burnham MD /valarie/robinson /Document#: [id number] MTDD
[2017-05-02] MEDS: CEFEPIME 1GM/50 ML (PMX) 50 ML IVPB SCH (11:50)
[2017-05-02] MEDS: PHENYLephrine 80 MG in DEXTROSE 5% 242 ML IV SCH (12:56)
[2017-05-02] MEDS: PROPOFOL 100 ML IV SCH (14:16)
[2017-05-02 16:23] LABS: OVALOCYTES 1+ (0-0)
[2017-05-02 19:51] LABS: ABNORMAL IP MESSAGE 1; BASOPHIL # 0.1 10^3/ul (0.0-0.1); BASOPHILS % 0.7 % (0.0-2.0); EOSINOPHILS % 0.1 % (0.0-7.0); HEMATOCRIT 29.4 % (42.0-52.0); HEMOGLOBIN 10.4 g/dl (14.0-18.0); LYMPHOCYTES # 0.3 10^3/ul (0.8-2.9); LYMPHOCYTES % 1.9 % (15.0-51.0); MEAN CORPUSCULAR HEMOGLOBIN 34.1 pg (29.0-33.0); MEAN CORPUSCULAR HGB CONC 35.4 g/dl (32.0-37.0); MEAN CORPUSCULAR VOLUME 96.4 fl (82.0-101.0); MEAN PLATELET VOLUME 11.5 fl (7.4-10.4); MONOCYTE # 0.5 10^3/ul (0.3-0.9); MONOCYTES % 2.9 % (0.0-11.0); NEUTROPHIL # 14.4 10^3/ul (1.6-7.5); NUCLEATED RED BLOOD CELLS # 0.1 10^3/ul (0.0-0.0); NUCLEATED RED BLOOD CELLS% 0.3 /100WBC (0.0-0.0); POSITIVE DIFF @See below; RED BLOOD COUNT 3.05 10^6/ul (4.70-6.10); WHITE BLOOD COUNT 15.4 10^3/ul (4.8-10.8)
[2017-05-02] MEDS: PANTOPRAZOLE 40 MG INJ IV SCH (19:57)
[2017-05-02 19:59] LABS: NEUTROPHILS % 93.2 % (39.0-77.0)
[2017-05-02 20:00] LABS: PLATELET COUNT 65 10^3/UL (140-415)
[2017-05-02] MEDS ORDERED: BETAMETHASONE/CLOTRIMAZOLE 15 GM CR TOP SCH (21:00)
--- NOTE | 2017-05-02 21:09 | CONS ---
Date/Time of Note Date/Time of Note DATE: 05/02/17 TIME: 20:59 Assessment/Plan Assessment/Plan Chief Complaint/Hosp Course This is a 87 y/o male with pmh of HTN, HLD, RF on HD, CAD and CABG x 20 yrs ago (1997) Presented to the hospital with VT at a rate of 220 bpm, with a RBBB and inferior axis. The pt required a shock and was sent to the ICU. Per lab notes, Trop was 30 on the day of admission. The pt later in the ICU, required to be intubated. The Echo was done yesterday, the pt has an EF of 30% with mild AI and Mild MR per radiologic technology teacher. The ECG did not reveal ST elevation. The family wants everything to be done. He is now on 4 pressors, Levophed, vasopressin, Sean and Dobutamine. The pt is now receiving HD and the BP is 86 systolic. He is on 100% FIO2. 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 05/02/2017 The patient is improving with the LFTs decreasing, the Trop trending down, the FIO2 is now at 50% instead of 100%, He is on 3 pressors and will wean off the pressors again. Problems: Additional Assessment/Plan see above Consultation Date/Type/Reason Admit Date/Time Apr 29, 2017 at 19:31 Initial Consult Date 05/02/17 Type of Consultation: Pulmonary/critical care Reason for Consultation follow up Referring Provider: YENNY WINSTON MD 24 HR Interval Summary Free Text/Dictation The patient is still intubated. The patient is improving per lab numbers. Exam/Review of Systems Vital Signs Vitals Vital Signs Date Time Temp Pulse Resp B/P Pulse Ox O2 Delivery O2 Flow Rate FiO2 05/02/17 20:25 55 05/02/17 20:00 97 24 114/60 100 05/02/17 19:00 99.4 Mechanical Ventilator 04/29/17 20:16 15.0 Intake and Output 05/01/17 05/01/17 05/02/17 15:00 23:00 07:00 Intake Total 1956.33 ml 626.02 ml 688.36 ml Output Total 500 ml 0 ml 0 ml Balance 1456.33 ml 626.02 ml 688.36 ml Results Result Diagram: 05/02/17 1935 05/02/17 0700 Results 24 hrs Laboratory Tests Test 05/01/17 22:24 05/02/17 05:00 05/02/17 06:51 05/02/17 07:00 Platelet Count 34 L 33 #L Prothrombin Time 25.4 #H Prothrombin Time Ratio 2.0 INR International Normalized Ratio 2.28 Activated Partial Thromboplast Time 57.6 H Thrombin Time 21.3 H Fibrinogen 341.0 Plasma Fibrin Degradation Products >10 and <40 H D-Dimer > 43903.00 H Lactate Dehydrogenase 7974 H Blood Gas Specimen Source Blood arterial Arterial Blood Date Drawn 05/02/2017 4:57:49 AM Arterial Blood pH (Temp corrected) 7.438 Arterial Blood pCO2 (Temp correct) 41.8 Arterial Blood pO2 (Temp corrected) 74.9 L Arterial Blood HCO3 27.6 H Arterial Blood Base Excess 3.2 H Arterial Blood Oxygen Saturation 94.2 L Hunter Test ACCEPTAB Arterial Blood Gas Puncture Site Right Radial Arterial Blood Carboxyhemoglobin 0.6 Arterial Blood Methemoglobin 0.1 Blood Gas A-a O2 Differential 234.6 H Oxyhemoglobin Percent 93.5 Total Hemoglobin 8.9 L Blood Gas Temperature 37.0 Blood Gas Respiration Rate 24.0 Blood Gas Actual Respiration Rate 25 Blood Gas Modality VENT - AC FiO2 50.0 Blood Gas Tidal Volume 550.0 Blood Gas Low PEEP Setting 5.0 Blood Gas Inspiratory Pressure 29.0 Blood Gas Notified Whom RTR Blood Gas Notified Time 05/02/2017 5:24:02 AM Lactic Acid Level 10.8 *H White Blood Count 15.9 #H Red Blood Count 2.32 L Hemoglobin 7.9 L Hematocrit 23.6 L Mean Corpuscular Volume 101.7 H Mean Corpuscular Hemoglobin 34.1 H Mean Corpuscular Hemoglobin Concent 33.5 Red Cell Distribution Width 14.7 H Mean Platelet Volume 12.2 H Neutrophils % 95.4 H Lymphocytes % 1.6 L Monocytes % 2.5 Eosinophils % 0.0 Basophils % 0.4 Nucleated Red Blood Cells % 0.3 H Neutrophils # 15.1 H Lymphocytes # 0.3 L Monocytes # 0.4 Eosinophils # 0.0 Basophils # 0.1 Nucleated Red Blood Cells # 0.1 H Ovalocytes 1+ Sodium Level 136 Potassium Level 4.4 Chloride Level 90 L Carbon Dioxide Level 30 Anion Gap 20 H Blood Urea Nitrogen 38 #H Creatinine 5.12 H Glucose Level 89 # Calcium Level 6.6 L Total Bilirubin 2.3 H Direct Bilirubin 1.50 #H Indirect Bilirubin 0.8 Aspartate Amino Transf (AST/SGOT) 2838 H Alanine Aminotransferase (ALT/SGPT) 3340 H Alkaline Phosphatase 51 Total Protein 4.9 L Albumin 2.5 L Globulin 2.40 Albumin/Globulin Ratio 1.04 Test 05/02/17 19:35 White Blood Count 15.4 H Red Blood Count 3.05 #L Hemoglobin 10.4 #L Hematocrit 29.4 #L Mean Corpuscular Volume 96.4 Mean Corpuscular Hemoglobin 34.1 H Mean Corpuscular Hemoglobin Concent 35.4 Red Cell Distribution Width 15.0 H Platelet Count 65 #L Mean Platelet Volume 11.5 H Neutrophils % 93.2 H Lymphocytes % 1.9 L Monocytes % 2.9 Eosinophils % 0.1 Basophils % 0.7 Nucleated Red Blood Cells % 0.3 H Neutrophils # 14.4 H Lymphocytes # 0.3 L Monocytes # 0.5 Eosinophils # 0.0 Basophils # 0.1 Nucleated Red Blood Cells # 0.1 H Troponin I 42.400 *H Medications Medications Current Medications Folic Acid (Folic Acid) 1 mg DAILY PO Last administered on 05/02/17t 10:45; Admin Dose 1 MG; Start 04/30/17 at 09:00 Ondansetron HCl (Zofran Inj) 4 mg Q6H PRN IV NAUSEA AND/OR VOMITING; Start at 20:00 Nitroglycerin (Nitroglycerin (Sl Tab) 0.4 Mg) 1 tab Q5M PRN SL CHEST PAIN; Start 04/29/17 at 20:00 Acetaminophen (Tylenol Liquid) 650 mg Q6H PRN PO PAIN LEVEL 1-3 OR FEVER; Start 04/29/17 at 20:00 Acetaminophen (Tylenol Tab) 650 mg Q6H PRN PO PAIN LEVEL 1-3 OR FEVER; Start at 20:00 Acetaminophen/ Hydrocodone Bitart ([place] (5/325)) 1 tab Q6H PRN PO PAIN LEVEL 4 -6; Start 04/29/17 at 20:00 Zolpidem Tartrate (Ambien) 5 mg QHS PRN PO INSOMNIA; Start 04/29/17 at 20:00 Docusate Sodium (Colace) 100 mg Q12H PRN PO CONSTIPATION; Start 04/29/17 at 20: 00 Bisacodyl (Dulcolax) 5 mg DAILY PRN PO CONSTIPATION; Start 04/29/17 at 20:00 Methylprednisolone Sodium Succinate (Solu-Medrol) 40 mg Q8 IV Last administered on 05/02/17 14:05; Admin Dose 40 MG; Start 04/30/17 at 06:00 Aspirin 325 mg 325 mg DAILY PO Last administered on 04/30/17 09:15; Admin Dose 325 MG; Start 04/30/17 at 09:00 Propofol 100 ml @ 2.25 mls/hr Q12H IV Last administered on 05/02/17 14:16; Admin Dose 5.4 MLS/HR; Start 04/29/17 at 23:00 Vasopressin 60 unit/Dextrose 60 ml @ 1.2 mls/hr Q12H IV Last administered on 01:07; Admin Dose 2.4 MLS/HR; Start 04/30/17 at 13:00 Dobutamine HCl/ Dextrose 250 ml @ 9.51 mls/hr TITRATE IV Last administered on 05/02/17 20:06; Admin Dose 9.51 MLS/HR; Start 04/30/17 at 13:00 Fentanyl 100 ml @ 5 mls/hr TITRATE IV Last administered on 05/02/17 02:42; Admin Dose 5 MLS/HR; Start 04/30/17 at 16:00 Phenylephrine HCl 80 mg/Dextrose 250 ml @ 18.75 mls/ hr TITRATE IV Last administered on 05/02/17 12:56; Admin Dose 16.87 MLS/HR; Start 04/30/17 at 18: 00 Norepinephrine/ Dextrose (Levophed/D5W) 250 ml @ 0.46 mls/hr TITRATE IV Last administered on 05/02/17 02:45; Admin Dose 14.06 MLS/HR; Start 04/30/17 at 18: 00 Pantoprazole (Protonix Iv) 40 mg BID@06,18 IV Last administered on 05/02/17 19 :57; Admin Dose 40 MG; Start 05/02/17 at 18:00 Diphenhydramine HCl 25 mg 25 mg Q4H PRN IV ITCHING Last administered on 19:57; Admin Dose 25 MG; Start 05/02/17 at 08:30 Cefepime HCl (Maxipime 1gm/50 ml (Pmx)) 50 ml @ 100 mls/hr Q24H IVPB Last administered on 05/02/17 11:50; Admin Dose 100 MLS/HR; Start 05/02/17 at 11:00 Betamethasone/ Clotrimazole (Lotrisone Cr) 1 applic BID TOP ; Start 05/02/17 at 21:00 KEVIN PICKERING MD May 02, 2017 21:09
[2017-05-02 23:24] LABS: CALCIUM 6.4 mg/dl (8.4-10.2); CREATININE 5.6 mg/dl (0.61-1.24); MAGNESIUM 1.6 mg/dl (1.7-2.5)
[2017-05-02] MEDS ORDERED: MAGNESIUM SULFATE 2 GM/50 ML 50 ML ONE (23:52)
[2017-05-03] VITALS (113 sets, daily range): BP systolic 58–172; BP diastolic 31–135; PULSE 82–137; RESP 13–28
[2017-05-03] MEDS ORDERED: MAGNESIUM SULFATE 2 GM/50 ML 50 ML IVPB ONE
[2017-05-03] MEDS: VASOPRESSIN 60 UNIT in DEXTROSE 5% 57 ML IV SCH ×2 (01:00→13:00)
[2017-05-03] MEDS: ALBUTEROL 18 GM INHALER INH SCH ×4 (01:43→19:35)
[2017-05-03] MEDS: IPRATROPIUM (HFA) 12.9 GM INHALER INH SCH ×4 (01:43→19:35)
--- NOTE | 2017-05-03 01:49 | CONS ---
DATE OF ADMISSION: 04/29/2017 DATE OF CONSULTATION: 05/02/2017 REASON FOR CONSULTATION: Antibiotic management. HISTORY OF PRESENT ILLNESS: Jhonny Quiñones is an 87-year-old male with coronary artery disease and end-stage renal disease, who presented with chest pain as well as nausea and vomiting. The patient was brought in by ambulance. According to paramedics, he was in SVT, was given 6 mg of adenosine, which did not change his rhythm. He had dialysis the day prior to admission PAST MEDICAL HISTORY: 1. End-stage renal disease. 2. Coronary artery disease. 3. Coronary artery bypass grafting with stent placement. 4. Left upper extremity AV fistula. PAST SURGICAL HISTORY: Operations as outlined. FAMILY HISTORY: Noncontributory. SOCIAL HISTORY: Does not smoke, drink, or abuse drugs. ALLERGIES: NONE TO PENICILLIN, SULFA, OR FOODS. LABORATORY: On admission, his white count was 8.2, H and H of 9.7, 30.9, platelet count 101,000. BUN and creatinine 43/6.35, glucose of 136. HOSPITAL COURSE: The patient was seen by numerous physicians including Dr. Jacobo, Dr. Rivas, and Dr. Burnham, as well as Dr. Olivo and Dr. Pauly May. The patient has an ET tube, an NG- tube, a triple-lumen catheter in his right groin and the left AV fistula. He has alpha hemolytic strep in his blood. His chest x- ray shows the endotracheal tube, an NG-tube, sternotomy wires in place, right base opacity suggestive of pleural effusion with trace left pleural effusion. He had a CT scan of the abdomen and pelvis: Status post sternotomy, patchy airspace right lung base infiltrates, left lower lobe consolidation with air bronchograms and trace left pleural effusion. Distended gallbladder with cholelithiasis and thickened gallbladder wall. Minimal free fluid surrounding the right lobe of the liver, bilaterally atrophic kidneys with multiple cysts without obstructive uropathy. Decompressed urinary bladder with thickened wall. Minimal sigmoid diverticulosis. Right femoral venous line. The patient is currently on vancomycin and he is currently on cefepime. He was on ceftriaxone and in terms of cultures, he had 1 blood culture done, no sputum cultures. He had 2+ sets of blood cultures done. PHYSICAL EXAMINATION: GENERAL APPEARANCE: The patient is a an elderly-appearing male who is awake, noncommunicative. No acute distress. VITAL SIGNS: Stable. He is afebrile. SKIN: Without generalized rash. HEENT: He has an ET tube, an NG-tube in place. NECK: Supple. Lymph nodes nonpalpable. CHEST: Decreased breath sounds at the bases. HEART: Without murmur or gallop. ABDOMEN: Soft, nontender, without organosplenomegaly or masses. EXTREMITIES: Without cyanosis, clubbing, or edema. RECTAL AND GENITAL: Exams deferred. NEUROLOGICAL: No focal neurological abnormality. IMPRESSION AND PLAN: We will go ahead and re-culture him, do 2 sets of blood cultures and a sputum culture. I will dictate my findings to Dr. Burnham and the various consultants. Dictated By: Arnie Espinal MD JD/valarie/robinson /Document#: [id number]
[2017-05-03] MEDS: PROPOFOL 100 ML IV SCH ×2 (02:29→11:00)
[2017-05-03] MEDS: PHENYLephrine 80 MG in DEXTROSE 5% 242 ML IV SCH ×2 (02:29→12:58)
[2017-05-03] MEDS: DIPHENHYDRAMINE 50 MG INJ IV PRN ×4 (02:42→16:41)
[2017-05-03] MEDS: DOBUTamine/D5W 1 MG/ML DRIP 250 ML IV SCH (03:15)
[2017-05-03] MEDS: NORepinephrine 32 MG in DEXTROSE 5% 218 ML IV SCH (03:16)
[2017-05-03] MEDS: PANTOPRAZOLE 40 MG INJ IV SCH ×2 (05:13→19:05)
[2017-05-03] MEDS: METHYLPREDNISOLONE 40 MG INJ IV SCH ×3 (05:13→21:34)
[2017-05-03 05:33] LABS: ABNORMAL IP MESSAGE 1; BASOPHIL # 0.1 10^3/ul (0.0-0.1); BASOPHILS % 0.5 % (0.0-2.0); HEMATOCRIT 28.5 % (42.0-52.0); HEMOGLOBIN 10.1 g/dl (14.0-18.0); LYMPHOCYTES # 0.3 10^3/ul (0.8-2.9); LYMPHOCYTES % 1.8 % (15.0-51.0); MEAN CORPUSCULAR HEMOGLOBIN 33.2 pg (29.0-33.0); MEAN CORPUSCULAR HGB CONC 35.4 g/dl (32.0-37.0); MEAN CORPUSCULAR VOLUME 93.8 fl (82.0-101.0); MONOCYTE # 0.6 10^3/ul (0.3-0.9); MONOCYTES % 4.2 % (0.0-11.0); NUCLEATED RED BLOOD CELLS # 0.1 10^3/ul (0.0-0.0); NUCLEATED RED BLOOD CELLS% 0.7 /100WBC (0.0-0.0); POSITIVE DIFF @See below; RED BLOOD COUNT 3.04 10^6/ul (4.70-6.10); RED CELL DISTRIBUTION WIDTH 15.4 % (11.5-14.5); WHITE BLOOD COUNT 15.2 10^3/ul (4.8-10.8)
[2017-05-03 05:39] LABS: NEUTROPHILS % 92.2 % (39.0-77.0); PLATELET COUNT 49 10^3/UL (140-415)
[2017-05-03 05:48] LABS: CALCIUM 6.3 mg/dl (8.4-10.2); CREATININE 5.41 mg/dl (0.61-1.24)
[2017-05-03 05:49] LABS: MAGNESIUM 2.1 mg/dl (1.7-2.5); PHOSPHORUS 4.4 mg/dl (2.5-4.9)
--- NOTE | 2017-05-03 09:09 | PN ---
Date/Time of Note Date/Time of Note DATE: 05/03/17 TIME: 08:56 Assessment/Plan VTE Prophylaxis VTE Prophylaxis Intervention: contraindicated Lines/Catheters IV Catheter Type (from Nrsg): Central Line Central line still needed: Yes Urinary Cath still in place: No Assessment/Plan Chief Complaint/Hosp Course 87 y/o with # s/p V Tachy/V Fib likely secondary to ischemia # Cardiogenic shock with AMI with Tropinins 150 on 3 pressors> downtrending Troponin to 40 # ESRD on HD thru fistula # Acute on chronic heart failure with EF 30% # Shock liver improving # Lactic acidosis # Respiratory failure on Vent # Thrombocytopenia s/p 1 unit platelets # Anemia S/P 2 units PRBC yesterday Recs - A line for accurate BP measurements - Spoke to Dr Rivera , might do Angiogram today if able to wean off pressors( appreciate consult) - HD planned today but will wait for Angiogram /A line - c/w cefepime and repeat Bld cx per Dr Espinal -- On FI02 40% , Vent management per Pulmonary - c/w Hold Heparin due to thrombocytopenia, c/w ASA - Daily Mg levels Problems: Subjective 24 Hr Interval Summary Free Text/Dictation Pt is doing better on Levophed 14, Dopamine 9 and Phenylepinephrine 150 Pt awake, alert and following commands SBP 90's Exam/Review of Systems Vital Signs Vitals Vital Signs Date Time Temp Pulse Resp B/P Pulse Ox O2 Delivery O2 Flow Rate FiO2 05/03/17 06:45 95 24 112/44 98 Mechanical Ventilator 05/03/17 05:40 45 05/03/17 04:00 99.1 04/29/17 20:16 15.0 Intake and Output 05/02/17 05/02/17 05/03/17 15:00 23:00 07:00 Intake Total 1346.05 ml 818.42 ml 769.76 ml Output Total 0 ml 0 ml Balance 1346.05 ml 818.42 ml 769.76 ml Exam Exam General:Intubated, follows commands NECK: JVD elevated, no thyromegaly, intub Lymph: no lymphadenopathy HEART: regular with no S3, RBANDI LUNGS: Coarse sounds ABD: soft, NT, ND, +BS Neuro: non focal SKIN: chronic changes EXT: trace edema Results Result Diagram: 05/03/17 0400 05/03/17 0400 Results 24 hrs Laboratory Tests Test 05/02/17 19:35 05/02/17 22:58 05/03/17 02:30 05/03/17 04:00 White Blood Count 15.4 H 15.2 H Red Blood Count 3.05 #L 3.04 L Hemoglobin 10.4 #L 10.1 L Hematocrit 29.4 #L 28.5 L Mean Corpuscular Volume 96.4 93.8 Mean Corpuscular Hemoglobin 34.1 H 33.2 H Mean Corpuscular Hemoglobin Concent 35.4 35.4 Red Cell Distribution Width 15.0 H 15.4 H Platelet Count 65 #L 49 #L Mean Platelet Volume 11.5 H 12.0 H Neutrophils % 93.2 H 92.2 H Lymphocytes % 1.9 L 1.8 L Monocytes % 2.9 4.2 Eosinophils % 0.1 0.0 Basophils % 0.7 0.5 Nucleated Red Blood Cells % 0.3 H 0.7 H Neutrophils # 14.4 H 14.0 H Lymphocytes # 0.3 L 0.3 L Monocytes # 0.5 0.6 Eosinophils # 0.0 0.0 Basophils # 0.1 0.1 Nucleated Red Blood Cells # 0.1 H 0.1 H Troponin I 42.400 *H Sodium Level 133 L 132 L Potassium Level 4.0 4.0 Chloride Level 89 L 89 L Carbon Dioxide Level 32 H 32 H Anion Gap 16 15 Blood Urea Nitrogen 49 #H 55 H Creatinine 5.60 H 5.41 H Glucose Level 73 71 Calcium Level 6.4 L 6.3 L Magnesium Level 1.6 L 2.0 2.1 Phosphorus Level 4.4 Test 05/03/17 05:34 Lab Scanned Report BLOOD TRANSFUSION Medications Medications Current Medications Folic Acid (Folic Acid) 1 mg DAILY PO Last administered on 05/02/17t 10:45; Admin Dose 1 MG; Start 04/30/17 at 09:00 Ondansetron HCl (Zofran Inj) 4 mg Q6H PRN IV NAUSEA AND/OR VOMITING; Start at 20:00 Nitroglycerin (Nitroglycerin (Sl Tab) 0.4 Mg) 1 tab Q5M PRN SL CHEST PAIN; Start 04/29/17 at 20:00 Acetaminophen (Tylenol Liquid) 650 mg Q6H PRN PO PAIN LEVEL 1-3 OR FEVER; Start 04/29/17 at 20:00 Acetaminophen (Tylenol Tab) 650 mg Q6H PRN PO PAIN LEVEL 1-3 OR FEVER; Start at 20:00 Acetaminophen/ Hydrocodone Bitart ([place] (5/325)) 1 tab Q6H PRN PO PAIN LEVEL 4 -6; Start 04/29/17 at 20:00 Zolpidem Tartrate (Ambien) 5 mg QHS PRN PO INSOMNIA; Start 04/29/17 at 20:00 Docusate Sodium (Colace) 100 mg Q12H PRN PO CONSTIPATION; Start 04/29/17 at 20: 00 Bisacodyl (Dulcolax) 5 mg DAILY PRN PO CONSTIPATION; Start 04/29/17 at 20:00 Methylprednisolone Sodium Succinate (Solu-Medrol) 40 mg Q8 IV Last administered on 05/03/17 05:13; Admin Dose 40 MG; Start 04/30/17 at 06:00 Aspirin 325 mg 325 mg DAILY PO Last administered on 04/30/17 09:15; Admin Dose 325 MG; Start 04/30/17 at 09:00 Propofol 100 ml @ 2.25 mls/hr Q12H IV Last administered on 05/03/17 02:29; Admin Dose 3.6 MLS/HR; Start 04/29/17 at 23:00 Vasopressin 60 unit/Dextrose 60 ml @ 1.2 mls/hr Q12H IV Last administered on 01:07; Admin Dose 2.4 MLS/HR; Start 04/30/17 at 13:00 Dobutamine HCl/ Dextrose 250 ml @ 9.51 mls/hr TITRATE IV Last administered on 05/03/17 03:15; Admin Dose 34.236 MLS/HR; Start 04/30/17 at 13:00 Fentanyl 100 ml @ 5 mls/hr TITRATE IV Last administered on 05/02/17 23:20; Admin Dose 5 MLS/HR; Start 04/30/17 at 16:00 Phenylephrine HCl 80 mg/Dextrose 250 ml @ 18.75 mls/ hr TITRATE IV Last administered on 05/03/17 02:29; Admin Dose 22.5 MLS/HR; Start 04/30/17 at 18:00 Norepinephrine/ Dextrose (Levophed/D5W) 250 ml @ 0.46 mls/hr TITRATE IV Last administered on 05/03/17 03:16; Admin Dose 5.15 MLS/HR; Start 04/30/17 at 18:00 Pantoprazole (Protonix Iv) 40 mg BID@06,18 IV Last administered on 05/03/17 05 :13; Admin Dose 40 MG; Start 05/02/17 at 18:00 Diphenhydramine HCl 25 mg 25 mg Q4H PRN IV ITCHING Last administered on 02:42; Admin Dose 25 MG; Start 05/02/17 at 08:30 Cefepime HCl (Maxipime 1gm/50 ml (Pmx)) 50 ml @ 100 mls/hr Q24H IVPB Last administered on 05/02/17 11:50; Admin Dose 100 MLS/HR; Start 05/02/17 at 11:00 ARNULFO BLEVINS MD May 03, 2017 09:09
--- NOTE | 2017-05-03 09:09 | RADRPT ---
PROCEDURE: XR Chest 1 view. CLINICAL INDICATION: Shortness of breath. TECHNIQUE: AP views of the chest were obtained. COMPARISON: May 01, 2017 FINDINGS: The heart is large. Calcified atherosclerosis is noted in the aorta. Endotracheal and nasogastric t ubes are stable and appear in grossly appropriate location. Median sternotomy wires overlie the hear t. Interstitial prominence in both lungs is stable. Retrocardiac opacity is stable. Patchy right low er lobe infiltrates are unchanged. Scattered atelectasis versus minimal infiltrates are seen in the upper lobes. Osseous structures are intact. IMPRESSION: Cardiomegaly with calcified atherosclerosis in the aorta. Stable diffuse interstitial prominence in both lungs. Stable retrocardiac opacity that may reflect left lower lobe atelectasis or infiltrate combined with small pleural effusion. Stable patchy right lower lobe infiltrates. Atelectasis versus minimal infiltrates in the upper lobes. RPTAT: AA .Zuhair Norman MD, MD Date Time Electronically viewed and signed by .Zuhair Norman MD, on 05/03/2017 08:50 .P/
[2017-05-03] MEDS: FOLIC ACID 1 MG TAB PO SCH (09:15)
[2017-05-03 09:42] LABS: AADO2 Arterial 181.3 mmHg (7.0-24.0); Allen Test ACCEPTAB; Arterial Base Excess 3.2 mmol/L (-3.0-3); Arterial COHb 0.3 % (0.0-3.0); Arterial Fraction of Oxyhgb 92.5 % (93.0-99.0); Arterial MetHb 0 % (0.0-1.5); Arterial Total Hemglobin 11.7 g/dl (12.0-18.0); MODE VENT - AC
[2017-05-03] MEDS: ASPIRIN 325 MG TAB PO SCH (09:46)
--- NOTE | 2017-05-03 10:01 | CONS ---
Date/Time of Note Date/Time of Note DATE: 05/03/17 TIME: 09:57 Assessment/Plan Assessment/Plan Additional Assessment/Plan 1. VT/VF - no new episodes now - likely dana-infarct phenomena - no new arrhythmia now. Occ PVCs - titrate dobutamine as tolerated. 2. CAD - s/p AMI, troponin high - infarct complete - at tihs point, risk of LHC is not justified - will con't supportive care - heparin gtt stopped, low platelets. Now with sign of bleed - hematology on the case - shocked liver likely - I'll add protonix IV now - decreased Ng drainage. 3. CHF - Syst HF, acute on chronic - HD as needed to remove fluids - will Rx with renal team. 4. ESRD - HD now, slow pull advised, Dr. Winston follows. 5. Hypotension - on pressors now. Cardiogenic shock now - con't med rx no w- family aware of poor prognosis. . Consultation Date/Type/Reason Admit Date/Time Apr 29, 2017 at 19:31 Type of Consultation: Pulmonary/critical care Referring Provider: YENNY WINSTON MD 24 HR Interval Summary Free Text/Dictation NO acute events - BP stable on multiple pressors. ROS: No fever, no chills, no nausea, no vomiting, no diarrhea/constipation No recent weight changes No chest pain, no PND, no orthopnea No dizziness, blurred vision No thirst, no heat or cold intolerance Exam/Review of Systems Vital Signs Vitals Vital Signs Date Time Temp Pulse Resp B/P Pulse Ox O2 Delivery O2 Flow Rate FiO2 05/03/17 08:00 90 05/03/17 06:45 24 112/44 98 Mechanical Ventilator 05/03/17 05:40 45 05/03/17 04:00 99.1 04/29/17 20:16 15.0 Intake and Output 05/02/17 05/02/17 05/03/17 15:00 23:00 07:00 Intake Total 1346.05 ml 818.42 ml 769.76 ml Output Total 0 ml 0 ml Balance 1346.05 ml 818.42 ml 769.76 ml Exam General: WN/WD/NAD, AOx 2-3 HEENT: Unicetric/atraumatic/EOMI (follows commands) NECK: JVD elevated, no thyromegaly, intubated Lymph: no lymphadenopathy HEART: regular with no S3, II/ systolic murmur at apex LUNGS: Coarse sounds ABD: soft, NT, ND, +BS : Intact Neuro: non focal SKIN: chronic changes EXT: trace edema Results Result Diagram: 05/03/17 0400 05/03/17 0400 Results 24 hrs Laboratory Tests Test 05/02/17 19:35 05/02/17 22:58 05/03/17 02:30 05/03/17 04:00 White Blood Count 15.4 H 15.2 H Red Blood Count 3.05 #L 3.04 L Hemoglobin 10.4 #L 10.1 L Hematocrit 29.4 #L 28.5 L Mean Corpuscular Volume 96.4 93.8 Mean Corpuscular Hemoglobin 34.1 H 33.2 H Mean Corpuscular Hemoglobin Concent 35.4 35.4 Red Cell Distribution Width 15.0 H 15.4 H Platelet Count 65 #L 49 #L Mean Platelet Volume 11.5 H 12.0 H Neutrophils % 93.2 H 92.2 H Lymphocytes % 1.9 L 1.8 L Monocytes % 2.9 4.2 Eosinophils % 0.1 0.0 Basophils % 0.7 0.5 Nucleated Red Blood Cells % 0.3 H 0.7 H Neutrophils # 14.4 H 14.0 H Lymphocytes # 0.3 L 0.3 L Monocytes # 0.5 0.6 Eosinophils # 0.0 0.0 Basophils # 0.1 0.1 Nucleated Red Blood Cells # 0.1 H 0.1 H Troponin I 42.400 *H Sodium Level 133 L 132 L Potassium Level 4.0 4.0 Chloride Level 89 L 89 L Carbon Dioxide Level 32 H 32 H Anion Gap 16 15 Blood Urea Nitrogen 49 #H 55 H Creatinine 5.60 H 5.41 H Glucose Level 73 71 Calcium Level 6.4 L 6.3 L Magnesium Level 1.6 L 2.0 2.1 Phosphorus Level 4.4 Test 05/03/17 05:34 05/03/17 07:00 Lab Scanned Report BLOOD TRANSFUSION Blood Gas Specimen Source Blood arterial Arterial Blood Date Drawn 05/03/2017 7:14:33 AM Arterial Blood pH (Temp corrected) 7.506 H Arterial Blood pCO2 (Temp correct) 33.7 L Arterial Blood pO2 (Temp corrected) 65.1 L Arterial Blood HCO3 26.0 Arterial Blood Base Excess 3.2 H Arterial Blood Oxygen Saturation 92.8 L Hunter Test ACCEPTAB Arterial Blood Gas Puncture Site Right Radial Arterial Blood Carboxyhemoglobin 0.3 Arterial Blood Methemoglobin 0 Blood Gas A-a O2 Differential 181.3 H Oxyhemoglobin Percent 92.5 L Total Hemoglobin 11.7 L Blood Gas Temperature 37.0 Blood Gas Respiration Rate 24.0 Blood Gas Actual Respiration Rate 24 Blood Gas Modality VENT - AC FiO2 40.0 Blood Gas Tidal Volume 550.0 Blood Gas Low PEEP Setting 5.0 Blood Gas Notified Whom TM Blood Gas Notified Time 05/03/2017 7:33:27 AM Medications Medications Current Medications Folic Acid (Folic Acid) 1 mg DAILY PO Last administered on 05/03/17 09:15; Admin Dose 1 MG; Start 04/30/17 at 09:00 Ondansetron HCl (Zofran Inj) 4 mg Q6H PRN IV NAUSEA AND/OR VOMITING; Start at 20:00 Nitroglycerin (Nitroglycerin (Sl Tab) 0.4 Mg) 1 tab Q5M PRN SL CHEST PAIN; Start 04/29/17 at 20:00 Acetaminophen (Tylenol Liquid) 650 mg Q6H PRN PO PAIN LEVEL 1-3 OR FEVER; Start 04/29/17 at 20:00 Acetaminophen (Tylenol Tab) 650 mg Q6H PRN PO PAIN LEVEL 1-3 OR FEVER; Start at 20:00 Acetaminophen/ Hydrocodone Bitart ([place] (5/325)) 1 tab Q6H PRN PO PAIN LEVEL 4 -6; Start 04/29/17 at 20:00 Zolpidem Tartrate (Ambien) 5 mg QHS PRN PO INSOMNIA; Start 04/29/17 at 20:00 Docusate Sodium (Colace) 100 mg Q12H PRN PO CONSTIPATION; Start 04/29/17 at 20: 00 Bisacodyl (Dulcolax) 5 mg DAILY PRN PO CONSTIPATION; Start 04/29/17 at 20:00 Methylprednisolone Sodium Succinate (Solu-Medrol) 40 mg Q8 IV Last administered on 05/03/17 05:13; Admin Dose 40 MG; Start 04/30/17 at 06:00 Aspirin 325 mg 325 mg DAILY PO Last administered on 05/03/17 09:46; Admin Dose 325 MG; Start 04/30/17 at 09:00 Propofol 100 ml @ 2.25 mls/hr Q12H IV Last administered on 05/03/17 02:29; Admin Dose 3.6 MLS/HR; Start 04/29/17 at 23:00 Vasopressin 60 unit/Dextrose 60 ml @ 1.2 mls/hr Q12H IV Last administered on 01:07; Admin Dose 2.4 MLS/HR; Start 04/30/17 at 13:00 Dobutamine HCl/ Dextrose 250 ml @ 9.51 mls/hr TITRATE IV Last administered on 05/03/17 03:15; Admin Dose 34.236 MLS/HR; Start 04/30/17 at 13:00 Fentanyl 100 ml @ 5 mls/hr TITRATE IV Last administered on 05/02/17 23:20; Admin Dose 5 MLS/HR; Start 04/30/17 at 16:00 Phenylephrine HCl 80 mg/Dextrose 250 ml @ 18.75 mls/ hr TITRATE IV Last administered on 05/03/17 02:29; Admin Dose 22.5 MLS/HR; Start 04/30/17 at 18:00 Norepinephrine/ Dextrose (Levophed/D5W) 250 ml @ 0.46 mls/hr TITRATE IV Last administered on 05/03/17 03:16; Admin Dose 5.15 MLS/HR; Start 04/30/17 at 18:00 Pantoprazole (Protonix Iv) 40 mg BID@06,18 IV Last administered on 05/03/17 05 :13; Admin Dose 40 MG; Start 05/02/17 at 18:00 Diphenhydramine HCl 25 mg 25 mg Q4H PRN IV ITCHING Last administered on 09:15; Admin Dose 25 MG; Start 05/02/17 at 08:30 Cefepime HCl 50 ml @ 100 mls/hr Q24H IVPB Last administered on 05/02/17 11:50 ; Admin Dose 100 MLS/HR; Start 05/02/17 at 11:00 Dobutamine HCl/ Dextrose 250 ml @ 4.755 mls/ hr TITRATE IV ; Start 05/03/17 at 09:30 CANDACE CARTWRIGHT MD May 03, 2017 10:01
[2017-05-03] MEDS: DOBUTamine/D5W 2 MG/ML DRIP 250 ML IV SCH ×2 (10:21→22:34)
--- NOTE | 2017-05-03 11:01 | CONS ---
Date/Time of Note Date/Time of Note DATE: 05/03/17 TIME: 10:54 Assessment/Plan Assessment/Plan Additional Assessment/Plan Chest x-ray was reviewed from today which is showing endotracheal tube at an adequate level. Bilateral patchy perihilar alveolar infiltrates are present. Ventilator setting; AC of 24, tidal volume 550, PEEP of 5, 40% FiO2. Patient currently on phenylephrine drip at 150 mics per minute, Levophed 12 mics per minute, dobutamine 10 mics per kilogram per minute. Assessment and recommendations; 1. Patient admitted with respiratory failure which is combination of pneumonia and CHF. 2. Cardiogenic shock. 3. History of chronic renal insufficiency. 4. Cardiac arrhythmia. 5. Thrombocytopenia. Continue current supportive care. Prognosis is very guarded. I did have a detailed discussion the patient's daughter at bedside and answered all her questions. 35 minutes of critical care time was spent evaluating the patient. Consultation Date/Type/Reason Admit Date/Time Apr 29, 2017 at 19:31 Initial Consult Date 05/01/17 Type of Consultation: Pulmonary/critical care Referring Provider: YENNY WINSTON MD 24 HR Interval Summary Free Text/Dictation Patient's condition remains extremely critical. Requiring high-dose pressor support with combination pressor agents. General exam; elderly male, orally intubated, awake and responsive. Currently in no distress. Exam/Review of Systems Vital Signs Vitals Vital Signs Date Time Temp Pulse Resp B/P Pulse Ox O2 Delivery O2 Flow Rate FiO2 05/03/17 08:00 90 05/03/17 06:45 24 112/44 98 Mechanical Ventilator 05/03/17 05:40 45 05/03/17 04:00 99.1 04/29/17 20:16 15.0 Intake and Output 05/02/17 05/02/17 05/03/17 15:00 23:00 07:00 Intake Total 1346.05 ml 818.42 ml 769.76 ml Output Total 0 ml 0 ml Balance 1346.05 ml 818.42 ml 769.76 ml Exam HEENT exam; supple neck, positive JVD. No lymphadenopathy. Midline trachea. No thyromegaly. Orally intubated. Toes are small bilaterally. Patient has fair dentition. Chest exam; diminished but clear breath sounds. S1-S2 audible, no murmurs. Regular rhythm. Abdomen exam; soft, nondistended. No organomegaly. Bowel sounds are sluggish. Extremity exam; no edema. [employer] exam; patient is awake and fairly responsive. Results Result Diagram: 05/03/17 0400 05/03/17 0400 Results 24 hrs Laboratory Tests Test 05/02/17 19:35 05/02/17 22:58 05/03/17 02:30 05/03/17 04:00 White Blood Count 15.4 H 15.2 H Red Blood Count 3.05 #L 3.04 L Hemoglobin 10.4 #L 10.1 L Hematocrit 29.4 #L 28.5 L Mean Corpuscular Volume 96.4 93.8 Mean Corpuscular Hemoglobin 34.1 H 33.2 H Mean Corpuscular Hemoglobin Concent 35.4 35.4 Red Cell Distribution Width 15.0 H 15.4 H Platelet Count 65 #L 49 #L Mean Platelet Volume 11.5 H 12.0 H Neutrophils % 93.2 H 92.2 H Lymphocytes % 1.9 L 1.8 L Monocytes % 2.9 4.2 Eosinophils % 0.1 0.0 Basophils % 0.7 0.5 Nucleated Red Blood Cells % 0.3 H 0.7 H Neutrophils # 14.4 H 14.0 H Lymphocytes # 0.3 L 0.3 L Monocytes # 0.5 0.6 Eosinophils # 0.0 0.0 Basophils # 0.1 0.1 Nucleated Red Blood Cells # 0.1 H 0.1 H Troponin I 42.400 *H Sodium Level 133 L 132 L Potassium Level 4.0 4.0 Chloride Level 89 L 89 L Carbon Dioxide Level 32 H 32 H Anion Gap 16 15 Blood Urea Nitrogen 49 #H 55 H Creatinine 5.60 H 5.41 H Glucose Level 73 71 Calcium Level 6.4 L 6.3 L Magnesium Level 1.6 L 2.0 2.1 Phosphorus Level 4.4 Test 05/03/17 05:34 05/03/17 07:00 Lab Scanned Report BLOOD TRANSFUSION Blood Gas Specimen Source Blood arterial Arterial Blood Date Drawn 05/03/2017 7:14:33 AM Arterial Blood pH (Temp corrected) 7.506 H Arterial Blood pCO2 (Temp correct) 33.7 L Arterial Blood pO2 (Temp corrected) 65.1 L Arterial Blood HCO3 26.0 Arterial Blood Base Excess 3.2 H Arterial Blood Oxygen Saturation 92.8 L Hunter Test ACCEPTAB Arterial Blood Gas Puncture Site Right Radial Arterial Blood Carboxyhemoglobin 0.3 Arterial Blood Methemoglobin 0 Blood Gas A-a O2 Differential 181.3 H Oxyhemoglobin Percent 92.5 L Total Hemoglobin 11.7 L Blood Gas Temperature 37.0 Blood Gas Respiration Rate 24.0 Blood Gas Actual Respiration Rate 24 Blood Gas Modality VENT - AC FiO2 40.0 Blood Gas Tidal Volume 550.0 Blood Gas Low PEEP Setting 5.0 Blood Gas Notified Whom TM Blood Gas Notified Time 05/03/2017 7:33:27 AM Medications Medications Current Medications Folic Acid (Folic Acid) 1 mg DAILY PO Last administered on 05/03/17 09:15; Admin Dose 1 MG; Start 04/30/17 at 09:00 Ondansetron HCl (Zofran Inj) 4 mg Q6H PRN IV NAUSEA AND/OR VOMITING; Start at 20:00 Nitroglycerin (Nitroglycerin (Sl Tab) 0.4 Mg) 1 tab Q5M PRN SL CHEST PAIN; Start 04/29/17 at 20:00 Acetaminophen (Tylenol Liquid) 650 mg Q6H PRN PO PAIN LEVEL 1-3 OR FEVER; Start 04/29/17 at 20:00 Acetaminophen (Tylenol Tab) 650 mg Q6H PRN PO PAIN LEVEL 1-3 OR FEVER; Start at 20:00 Acetaminophen/ Hydrocodone Bitart ([place] (5/325)) 1 tab Q6H PRN PO PAIN LEVEL 4 -6; Start 04/29/17 at 20:00 Zolpidem Tartrate (Ambien) 5 mg QHS PRN PO INSOMNIA; Start 04/29/17 at 20:00 Docusate Sodium (Colace) 100 mg Q12H PRN PO CONSTIPATION; Start 04/29/17 at 20: 00 Bisacodyl (Dulcolax) 5 mg DAILY PRN PO CONSTIPATION; Start 04/29/17 at 20:00 Methylprednisolone Sodium Succinate (Solu-Medrol) 40 mg Q8 IV Last administered on 05/03/17 05:13; Admin Dose 40 MG; Start 04/30/17 at 06:00 Aspirin 325 mg 325 mg DAILY PO Last administered on 05/03/17 09:46; Admin Dose 325 MG; Start 04/30/17 at 09:00 Propofol 100 ml @ 2.25 mls/hr Q12H IV Last administered on 05/03/17 02:29; Admin Dose 3.6 MLS/HR; Start 04/29/17 at 23:00 Vasopressin 60 unit/Dextrose 60 ml @ 1.2 mls/hr Q12H IV Last administered on 01:07; Admin Dose 2.4 MLS/HR; Start 04/30/17 at 13:00 Dobutamine HCl/ Dextrose 250 ml @ 9.51 mls/hr TITRATE IV Last administered on 05/03/17 03:15; Admin Dose 34.236 MLS/HR; Start 04/30/17 at 13:00 Fentanyl 100 ml @ 5 mls/hr TITRATE IV Last administered on 05/02/17 23:20; Admin Dose 5 MLS/HR; Start 04/30/17 at 16:00 Phenylephrine HCl 80 mg/Dextrose 250 ml @ 18.75 mls/ hr TITRATE IV Last administered on 05/03/17 02:29; Admin Dose 22.5 MLS/HR; Start 04/30/17 at 18:00 Norepinephrine/ Dextrose (Levophed/D5W) 250 ml @ 0.46 mls/hr TITRATE IV Last administered on 05/03/17 03:16; Admin Dose 5.15 MLS/HR; Start 04/30/17 at 18:00 Pantoprazole (Protonix Iv) 40 mg BID@06,18 IV Last administered on 05/03/17 05 :13; Admin Dose 40 MG; Start 05/02/17 at 18:00 Diphenhydramine HCl 25 mg 25 mg Q4H PRN IV ITCHING Last administered on 09:15; Admin Dose 25 MG; Start 05/02/17 at 08:30 Cefepime HCl 50 ml @ 100 mls/hr Q24H IVPB Last administered on 05/02/17 11:50 ; Admin Dose 100 MLS/HR; Start 05/02/17 at 11:00 Dobutamine HCl/ Dextrose 250 ml @ 4.755 mls/ hr TITRATE IV Last administered on 05/03/17 10:21; Admin Dose 19.02 MLS/HR; Start 05/03/17 at 09:30 CHARLES EMMANUEL May 03, 2017 11:01
[2017-05-03] MEDS: CEFEPIME 1GM/50 ML (PMX) 50 ML IVPB SCH (11:19)
[2017-05-03] MEDS ORDERED: GLUCOSE GEL 15 GRAM TUBE PO PRN ×2 (12:45)
[2017-05-03] MEDS ORDERED: DEXTROSE 50% 50 ML SYRINGE IV PRN ×2 (12:45→12:46)
[2017-05-03] MEDS ORDERED: GLUCAGON 1 MG INJ IM PRN (12:46)
[2017-05-03] MEDS ORDERED: GLUCOSE GEL 15 GRAM TUBE BUCCAL PRN (12:46)
--- NOTE | 2017-05-03 14:19 | CONS ---
Date/Time of Note Date/Time of Note DATE: 05/03/17 TIME: 14:17 Assessment/Plan Assessment/Plan Chief Complaint/Hosp Course #Thrombocytopenia -this is most likely secondary to shock liver as evidenced by the markedly elevated AST/ALT (>7000/5000) -LDH markedly elevated which is likely secondary to shock liver but will check peripheral smear to make sure no evidence of microangiopathic hemolytic anemia -will check daily DIC panel and transfuse 1 unit cryo if fibrinogen is < 150. fibrinogen is currently 300. -would hold anticoagulation until platelet count is > 50K -platelet transfusion not needed today #Anemia -2/2 shock, sepsis and questionable bleed -s/p 2 units of PRBCs given yesterday #Cardiogenic shock with shock liver -management per cardiology -patient currently on pressors and ionotropic support #ESRD wit acidosis -pt now on Bicarb -continue HD as tolerated. currently blood pressure is very labile #Respiratory failure -currently intubated -cont management per pulmonary Problems: Consultation Date/Type/Reason Admit Date/Time Apr 29, 2017 at 19:31 Initial Consult Date 05/02/17 Type of Consultation: Hematology Reason for Consultation anemia/ thrombocytopenia Referring Provider: YENNY WINSTON MD 24 HR Interval Summary Free Text/Dictation pt remains critically ill on several pressors including dobutamine gtt. Exam/Review of Systems Vital Signs Vitals Vital Signs Date Time Temp Pulse Resp B/P Pulse Ox O2 Delivery O2 Flow Rate FiO2 05/03/17 12:00 118 05/03/17 11:30 24 103/71 100 05/03/17 11:00 Mechanical Ventilator 05/03/17 10:30 45 05/03/17 04:00 99.1 04/29/17 20:16 15.0 Intake and Output 05/02/17 05/02/17 05/03/17 15:00 23:00 07:00 Intake Total 1346.05 ml 818.42 ml 851.04 ml Output Total 0 ml 0 ml Balance 1346.05 ml 818.42 ml 851.04 ml Exam Constitutional: non-verbal Psych: anxiety, confusion, no complaints Head: normocephalic ENMT: intubated, nl external ears & nose Neck: non-tender, supple Respiratory: clear to auscultation Cardiovascular: regular rate and rhythm Gastrointestinal: soft Musculoskeletal: nl extremities to inspection Extremities: normal pulses Results Result Diagram: 05/03/17 0400 05/03/17 0400 Results 24 hrs Laboratory Tests Test 05/02/17 19:35 05/02/17 22:58 05/03/17 02:30 05/03/17 04:00 White Blood Count 15.4 H 15.2 H Red Blood Count 3.05 #L 3.04 L Hemoglobin 10.4 #L 10.1 L Hematocrit 29.4 #L 28.5 L Mean Corpuscular Volume 96.4 93.8 Mean Corpuscular Hemoglobin 34.1 H 33.2 H Mean Corpuscular Hemoglobin Concent 35.4 35.4 Red Cell Distribution Width 15.0 H 15.4 H Platelet Count 65 #L 49 #L Mean Platelet Volume 11.5 H 12.0 H Neutrophils % 93.2 H 92.2 H Lymphocytes % 1.9 L 1.8 L Monocytes % 2.9 4.2 Eosinophils % 0.1 0.0 Basophils % 0.7 0.5 Nucleated Red Blood Cells % 0.3 H 0.7 H Neutrophils # 14.4 H 14.0 H Lymphocytes # 0.3 L 0.3 L Monocytes # 0.5 0.6 Eosinophils # 0.0 0.0 Basophils # 0.1 0.1 Nucleated Red Blood Cells # 0.1 H 0.1 H Troponin I 42.400 *H Sodium Level 133 L 132 L Potassium Level 4.0 4.0 Chloride Level 89 L 89 L Carbon Dioxide Level 32 H 32 H Anion Gap 16 15 Blood Urea Nitrogen 49 #H 55 H Creatinine 5.60 H 5.41 H Glucose Level 73 71 Calcium Level 6.4 L 6.3 L Magnesium Level 1.6 L 2.0 2.1 Phosphorus Level 4.4 Test 05/03/17 05:34 05/03/17 07:00 05/03/17 11:59 05/03/17 13:38 Lab Scanned Report BLOOD TRANSFUSION Blood Gas Specimen Source Blood arterial Arterial Blood Date Drawn 05/03/2017 7:14:33 AM Arterial Blood pH (Temp corrected) 7.506 H Arterial Blood pCO2 (Temp correct) 33.7 L Arterial Blood pO2 (Temp corrected) 65.1 L Arterial Blood HCO3 26.0 Arterial Blood Base Excess 3.2 H Arterial Blood Oxygen Saturation 92.8 L Hunter Test ACCEPTAB Arterial Blood Gas Puncture Site Right Radial Arterial Blood Carboxyhemoglobin 0.3 Arterial Blood Methemoglobin 0 Blood Gas A-a O2 Differential 181.3 H Oxyhemoglobin Percent 92.5 L Total Hemoglobin 11.7 L Blood Gas Temperature 37.0 Blood Gas Respiration Rate 24.0 Blood Gas Actual Respiration Rate 24 Blood Gas Modality VENT - AC FiO2 40.0 Blood Gas Tidal Volume 550.0 Blood Gas Low PEEP Setting 5.0 Blood Gas Notified Whom TM Blood Gas Notified Time 05/03/2017 7:33:27 AM Bedside Glucose 69 L 99 Medications Medications Current Medications Folic Acid (Folic Acid) 1 mg DAILY PO Last administered on 05/03/17 09:15; Admin Dose 1 MG; Start 04/30/17 at 09:00 Ondansetron HCl (Zofran Inj) 4 mg Q6H PRN IV NAUSEA AND/OR VOMITING; Start at 20:00 Nitroglycerin (Nitroglycerin (Sl Tab) 0.4 Mg) 1 tab Q5M PRN SL CHEST PAIN; Start 04/29/17 at 20:00 Acetaminophen (Tylenol Liquid) 650 mg Q6H PRN PO PAIN LEVEL 1-3 OR FEVER; Start 04/29/17 at 20:00 Acetaminophen (Tylenol Tab) 650 mg Q6H PRN PO PAIN LEVEL 1-3 OR FEVER; Start at 20:00 Acetaminophen/ Hydrocodone Bitart ([place] (5/325)) 1 tab Q6H PRN PO PAIN LEVEL 4 -6; Start 04/29/17 at 20:00 Zolpidem Tartrate (Ambien) 5 mg QHS PRN PO INSOMNIA; Start 04/29/17 at 20:00 Docusate Sodium (Colace) 100 mg Q12H PRN PO CONSTIPATION; Start 04/29/17 at 20: 00 Bisacodyl (Dulcolax) 5 mg DAILY PRN PO CONSTIPATION; Start 04/29/17 at 20:00 Methylprednisolone Sodium Succinate (Solu-Medrol) 40 mg Q8 IV Last administered on 05/03/17 05:13; Admin Dose 40 MG; Start 04/30/17 at 06:00 Aspirin 325 mg 325 mg DAILY PO Last administered on 05/03/17 09:46; Admin Dose 325 MG; Start 04/30/17 at 09:00 Propofol 100 ml @ 2.25 mls/hr Q12H IV Last administered on 05/03/17 02:29; Admin Dose 3.6 MLS/HR; Start 04/29/17 at 23:00 Vasopressin 60 unit/Dextrose 60 ml @ 1.2 mls/hr Q12H IV Last administered on 01:07; Admin Dose 2.4 MLS/HR; Start 04/30/17 at 13:00 Fentanyl 100 ml @ 5 mls/hr TITRATE IV Last administered on 05/02/17 23:20; Admin Dose 5 MLS/HR; Start 04/30/17 at 16:00 Phenylephrine HCl 80 mg/Dextrose 250 ml @ 18.75 mls/ hr TITRATE IV Last administered on 05/03/17 12:58; Admin Dose 24.37 MLS/HR; Start 04/30/17 at 18: 00 Norepinephrine/ Dextrose (Levophed/D5W) 250 ml @ 0.46 mls/hr TITRATE IV Last administered on 05/03/17 03:16; Admin Dose 5.15 MLS/HR; Start 04/30/17 at 18:00 Pantoprazole (Protonix Iv) 40 mg BID@06,18 IV Last administered on 05/03/17 05 :13; Admin Dose 40 MG; Start 05/02/17 at 18:00 Diphenhydramine HCl 25 mg 25 mg Q4H PRN IV ITCHING Last administered on 12:37; Admin Dose 25 MG; Start 05/02/17 at 08:30 Cefepime HCl 50 ml @ 100 mls/hr Q24H IVPB Last administered on 05/03/17 11:19 ; Admin Dose 100 MLS/HR; Start 05/02/17 at 11:00 Dobutamine HCl/ Dextrose 250 ml @ 4.755 mls/ hr TITRATE IV Last administered on 05/03/17 10:21; Admin Dose 19.02 MLS/HR; Start 05/03/17 at 09:30 Miscellaneous Information 1 ea NOTE XX ; Start 05/03/17 at 13:00 Glucose (Glutose) 15 gm Q15M PRN PO DECREASED GLUCOSE; Start 05/03/17 at 12:45 Glucose (Glutose) 22.5 gm Q15M PRN PO DECREASED GLUCOSE; Start 05/03/17 at 12: 45 Dextrose (D50w Syringe) 25 ml Q15M PRN IV DECREASED GLUCOSE Last administered on 05/03/17t 12:48; Admin Dose 25 ML; Start 05/03/17 at 12:45 Dextrose (D50w Syringe) 50 ml Q15M PRN IV DECREASED GLUCOSE; Start 05/03/17 at 12:46 Glucagon (Glucagen) 1 mg Q15M PRN IM DECREASED GLUCOSE; Start 05/03/17 at 12:46 Glucose (Glutose) 15 gm Q15M PRN BUCCAL DECREASED GLUCOSE; Start 05/03/17 at 12 :46 JEFF HANSON M.D. May 03, 2017 14:19
[2017-05-03] MEDS: MIDAZOLAM (DRIP) 50 mg/50 mL 50 ML IV SCH (15:15)
--- NOTE | 2017-05-03 15:16 | PN ---
DATE: 05/03/2017 SUBJECTIVE DATA: The patient is intubated on multiple pressors. He is awake, follows commands. Family at bedside. He is in no distress. VITAL SIGNS: Temperature 99.1, pulse 102, respirations 24, blood pressure 103/71, saturation 100 on vent. LABORATORY AND DIAGNOSTIC DATA: WBC 15.2. H and H 10.1 and 28.5, platelets 49, neutrophils 92.2, BUN 55, creatinine 5.41, sodium 132. ANTIMICROBIALS: 1. Vancomycin. 2. Cefepime. MICROBIOLOGY: Blood culture on April 29 grew alpha-hemolytic strep species, 1/2 sets. DIAGNOSTICS: Chest x-ray this morning revealed stable patchy right lower lobe infiltrates, cardiomegaly, atelectasis versus minimal infiltrate in the upper lobes. INDWELLINGS: Endotracheal tube, NG tube. Left AV fistula. Right femoral triple lumen catheter. PHYSICAL EXAMINATION: GENERAL: This is a well-developed, elderly man who is in intubated, in no distress. HEENT: Head atraumatic, normocephalic. Sclerae anicteric. Buccal mucosa dry. NECK: Supple. CHEST: Chest rise symmetrical. Breath sounds diminished at the bases. HEART: S1, S2. ABDOMEN: Soft, bowel sounds present. EXTREMITIES: With cyanosis, with bilateral trace edema. Cool to touch. ASSESSMENT: 1. Septic shock, possibly cardiogenic as well. 2. Streptococcal bacteremia. 3. Healthcare-associated pneumonia, possibly aspiration type. 4. Distended gallbladder, possible cholecystitis. 5. End-stage renal disease, hemodialysis dependent. 6. Arrythmia with V-tach, with fib, cardiology on case. 7. History of coronary artery bypass grafting and stents. PLAN: The patient remains hemodynamically unstable. Covered with appropriate antibiotics. Pending repeat blood cultures. Dictated By: Chelly Hudson NP /valarie/lorena /Document#: [id number]
[2017-05-03] MEDS: ONDANSETRON 4 MG INJ IV PRN ×2 (16:40→23:24)
[2017-05-03] MEDS: DEXTROSE 5%-0.9% NACL 1,000 ML IV SCH (16:43)
--- NOTE | 2017-05-03 20:52 | CONS ---
Date/Time of Note Date/Time of Note DATE: 05/03/17 TIME: 20:50 Assessment/Plan Assessment/Plan Chief Complaint/Hosp Course This is a 87 y/o male with pmh of HTN, HLD, RF on HD, CAD and CABG x 20 yrs ago (1997) Presented to the hospital with VT at a rate of 220 bpm, with a RBBB and inferior axis. The pt required a shock and was sent to the ICU. Per lab notes, Trop was 30 on the day of admission. The pt later in the ICU, required to be intubated. The Echo was done yesterday, the pt has an EF of 30% with mild AI and Mild MR per trace evidence technician. The ECG did not reveal ST elevation. The family wants everything to be done. He is now on 4 pressors, Levophed, vasopressin, Sean and Dobutamine. The pt is now receiving HD and the BP is 86 systolic. He is on 100% FIO2. 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 05/02/2017 The patient is improving with the LFTs decreasing, the Trop trending down, the FIO2 is now at 50% instead of 100%, He is on 3 pressors and will wean off the pressors again. 05/03/2017 The pt is still on 3 pressors He is using less FIO2 at 40 % The pt will need an A line, attempted it, but could not pass the small wire. Will need kit from the [place] laborer tomorrow the pt will need to start on Amiodarone drip for HR control and on Digoxin 0.5 mg IV x 1 only the pt will also then need to be slowly weaned off of the pressors. will check ABG in AM Problems: Additional Assessment/Plan see above Consultation Date/Type/Reason Admit Date/Time Apr 29, 2017 at 19:31 Initial Consult Date 05/02/17 Type of Consultation: Hematology Reason for Consultation follow up Referring Provider: YENNY WINSTON MD 24 HR Interval Summary Free Text/Dictation The pt was responding this AM He is sedated now. Exam/Review of Systems Vital Signs Vitals Vital Signs Date Time Temp Pulse Resp B/P Pulse Ox O2 Delivery O2 Flow Rate FiO2 05/03/17 20:00 124 05/03/17 19:36 16 100 40 05/03/17 18:40 90/51 05/03/17 18:00 Mechanical Ventilator 05/03/17 16:07 98.6 04/29/17 20:16 15.0 Intake and Output 05/02/17 05/02/17 05/03/17 15:00 23:00 07:00 Intake Total 1346.05 ml 818.42 ml 851.04 ml Output Total 0 ml 0 ml Balance 1346.05 ml 818.42 ml 851.04 ml Results Result Diagram: 05/03/17 0400 05/03/17 0400 Results 24 hrs Laboratory Tests Test 05/02/17 22:58 05/03/17 02:30 05/03/17 04:00 05/03/17 05:34 Sodium Level 133 L 132 L Potassium Level 4.0 4.0 Chloride Level 89 L 89 L Carbon Dioxide Level 32 H 32 H Anion Gap 16 15 Blood Urea Nitrogen 49 #H 55 H Creatinine 5.60 H 5.41 H Glucose Level 73 71 Calcium Level 6.4 L 6.3 L Magnesium Level 1.6 L 2.0 2.1 White Blood Count 15.2 H Red Blood Count 3.04 L Hemoglobin 10.1 L Hematocrit 28.5 L Mean Corpuscular Volume 93.8 Mean Corpuscular Hemoglobin 33.2 H Mean Corpuscular Hemoglobin Concent 35.4 Red Cell Distribution Width 15.4 H Platelet Count 49 #L Mean Platelet Volume 12.0 H Neutrophils % 92.2 H Lymphocytes % 1.8 L Monocytes % 4.2 Eosinophils % 0.0 Basophils % 0.5 Nucleated Red Blood Cells % 0.7 H Neutrophils # 14.0 H Lymphocytes # 0.3 L Monocytes # 0.6 Eosinophils # 0.0 Basophils # 0.1 Nucleated Red Blood Cells # 0.1 H Phosphorus Level 4.4 Lab Scanned Report BLOOD TRANSFUSION Test 05/03/17 07:00 05/03/17 11:59 05/03/17 13:38 05/03/17 14:24 Blood Gas Specimen Source Blood arterial Arterial Blood Date Drawn 05/03/2017 7:14:33 AM Arterial Blood pH (Temp corrected) 7.506 H Arterial Blood pCO2 (Temp correct) 33.7 L Arterial Blood pO2 (Temp corrected) 65.1 L Arterial Blood HCO3 26.0 Arterial Blood Base Excess 3.2 H Arterial Blood Oxygen Saturation 92.8 L Hunter Test ACCEPTAB Arterial Blood Gas Puncture Site Right Radial Arterial Blood Carboxyhemoglobin 0.3 Arterial Blood Methemoglobin 0 Blood Gas A-a O2 Differential 181.3 H Oxyhemoglobin Percent 92.5 L Total Hemoglobin 11.7 L Blood Gas Temperature 37.0 Blood Gas Respiration Rate 24.0 Blood Gas Actual Respiration Rate 24 Blood Gas Modality VENT - AC FiO2 40.0 Blood Gas Tidal Volume 550.0 Blood Gas Low PEEP Setting 5.0 Blood Gas Notified Whom TM Blood Gas Notified Time 05/03/2017 7:33:27 AM Bedside Glucose 69 L 99 82 Test 05/03/17 18:59 Bedside Glucose 86 Medications Medications Current Medications Folic Acid (Folic Acid) 1 mg DAILY PO Last administered on 05/03/17 09:15; Admin Dose 1 MG; Start 04/30/17 at 09:00 Ondansetron HCl (Zofran Inj) 4 mg Q6H PRN IV NAUSEA AND/OR VOMITING Last administered on 05/03/17 16:40; Admin Dose 4 MG; Start 04/29/17 at 20:00 Nitroglycerin (Nitroglycerin (Sl Tab) 0.4 Mg) 1 tab Q5M PRN SL CHEST PAIN; Start 04/29/17 at 20:00 Acetaminophen (Tylenol Liquid) 650 mg Q6H PRN PO PAIN LEVEL 1-3 OR FEVER; Start 04/29/17 at 20:00 Acetaminophen (Tylenol Tab) 650 mg Q6H PRN PO PAIN LEVEL 1-3 OR FEVER; Start at 20:00 Acetaminophen/ Hydrocodone Bitart ([place] (5/325)) 1 tab Q6H PRN PO PAIN LEVEL 4 -6; Start 04/29/17 at 20:00 Zolpidem Tartrate (Ambien) 5 mg QHS PRN PO INSOMNIA; Start 04/29/17 at 20:00 Docusate Sodium (Colace) 100 mg Q12H PRN PO CONSTIPATION; Start 04/29/17 at 20: 00 Bisacodyl (Dulcolax) 5 mg DAILY PRN PO CONSTIPATION; Start 04/29/17 at 20:00 Methylprednisolone Sodium Succinate (Solu-Medrol) 40 mg Q8 IV Last administered on 05/03/17 14:42; Admin Dose 40 MG; Start 04/30/17 at 06:00 Aspirin 325 mg 325 mg DAILY PO Last administered on 05/03/17 09:46; Admin Dose 325 MG; Start 04/30/17 at 09:00 Vasopressin 60 unit/Dextrose 60 ml @ 1.2 mls/hr Q12H IV Last administered on 01:07; Admin Dose 2.4 MLS/HR; Start 04/30/17 at 13:00 Fentanyl 100 ml @ 5 mls/hr TITRATE IV Last administered on 05/02/17 23:20; Admin Dose 5 MLS/HR; Start 04/30/17 at 16:00 Phenylephrine HCl 80 mg/Dextrose 250 ml @ 18.75 mls/ hr TITRATE IV Last administered on 05/03/17 12:58; Admin Dose 24.37 MLS/HR; Start 04/30/17 at 18: 00 Norepinephrine/ Dextrose (Levophed/D5W) 250 ml @ 0.46 mls/hr TITRATE IV Last administered on 05/03/17 03:16; Admin Dose 5.15 MLS/HR; Start 04/30/17 at 18:00 Pantoprazole (Protonix Iv) 40 mg BID@06,18 IV Last administered on 05/03/17 19 :05; Admin Dose 40 MG; Start 05/02/17 at 18:00 Diphenhydramine HCl 25 mg 25 mg Q4H PRN IV ITCHING Last administered on 16:41; Admin Dose 25 MG; Start 05/02/17 at 08:30 Cefepime HCl 50 ml @ 100 mls/hr Q24H IVPB Last administered on 05/03/17 11:19 ; Admin Dose 100 MLS/HR; Start 05/02/17 at 11:00 Dobutamine HCl/ Dextrose 250 ml @ 4.755 mls/ hr TITRATE IV Last administered on 05/03/17 10:21; Admin Dose 19.02 MLS/HR; Start 05/03/17 at 09:30 Miscellaneous Information 1 ea NOTE XX ; Start 05/03/17 at 13:00 Glucose (Glutose) 15 gm Q15M PRN PO DECREASED GLUCOSE; Start 05/03/17 at 12:45 Glucose (Glutose) 22.5 gm Q15M PRN PO DECREASED GLUCOSE; Start 05/03/17 at 12: 45 Dextrose (D50w Syringe) 25 ml Q15M PRN IV DECREASED GLUCOSE Last administered on 05/03/17 12:48; Admin Dose 25 ML; Start 05/03/17 at 12:45 Dextrose (D50w Syringe) 50 ml Q15M PRN IV DECREASED GLUCOSE; Start 05/03/17 at 12:46 Glucagon (Glucagen) 1 mg Q15M PRN IM DECREASED GLUCOSE; Start 05/03/17 at 12:46 Glucose 15 gm 15 gm Q15M PRN BUCCAL DECREASED GLUCOSE; Start 05/03/17 at 12:46 Midazolam HCl 50 ml @ 1 mls/hr TITRATE IV Last administered on 05/03/17 15:15 ; Admin Dose 1 MLS/HR; Start 05/03/17 at 15:00 Dextrose/Sodium Chloride 1,000 ml @ 20 mls/hr Q24H IV Last administered on 16:43; Admin Dose 20 MLS/HR; Start 05/03/17 at 16:00 Amiodarone HCl/ Dextrose (Cordarone Iv/ D5W) 500 ml @ 0 mls/hr Q0M IV ; Start at 21:00; Stop 05/04/17 at 20:59 KEVIN PICKERING MD May 03, 2017 20:52
[2017-05-03] MEDS: AMIODARONE 900 MG in DEXTROSE 5% 482 ML IV SCH ×2 (21:00→21:21)
[2017-05-03] MEDS ORDERED: DIGOXIN 500 MCG INJ IV ONE (21:30)
[2017-05-04] VITALS (106 sets, daily range): BP systolic 61–134; BP diastolic 37–106; PULSE 70–93; RESP 12–27
[2017-05-04] MEDS: PHENYLephrine 80 MG in DEXTROSE 5% 242 ML IV SCH ×2 (00:32→09:57)
[2017-05-04] MEDS: VASOPRESSIN 60 UNIT in DEXTROSE 5% 57 ML IV SCH ×2 (01:00→12:16)
[2017-05-04] MEDS: IPRATROPIUM (HFA) 12.9 GM INHALER INH SCH ×4 (01:17→20:00)
[2017-05-04] MEDS: ALBUTEROL 18 GM INHALER INH SCH ×4 (01:17→19:46)
[2017-05-04] MEDS: FENTAnyl (DRIP) 1000 mcg/100mL 100 ML IV SCH (03:28)
[2017-05-04 05:45] LABS: ABNORMAL IP MESSAGE 1; HEMATOCRIT 29.9 % (42.0-52.0); HEMOGLOBIN 10.1 g/dl (14.0-18.0); MEAN CORPUSCULAR HEMOGLOBIN 32.7 pg (29.0-33.0); MEAN CORPUSCULAR HGB CONC 33.8 g/dl (32.0-37.0); MEAN CORPUSCULAR VOLUME 96.8 fl (82.0-101.0); MEAN PLATELET VOLUME 12.3 fl (7.4-10.4); POSITIVE DIFF @See below; RED BLOOD COUNT 3.09 10^6/ul (4.70-6.10); RED CELL DISTRIBUTION WIDTH 15.4 % (11.5-14.5); WHITE BLOOD COUNT 19.3 10^3/ul (4.8-10.8)
[2017-05-04] MEDS: PANTOPRAZOLE 40 MG INJ IV SCH ×2 (05:52→17:52)
[2017-05-04] MEDS: METHYLPREDNISOLONE 40 MG INJ IV SCH ×3 (05:52→21:12)
[2017-05-04 05:54] LABS: INR 1.15; PROTIME 14.7 Sec (12.2-14.2); PT RATIO 1.1
[2017-05-04 05:55] LABS: PARTIAL THROMBOPLASTIN TIME 43.3 Sec (25.0-35.0)
[2017-05-04 06:14] LABS: MAGNESIUM 2.2 mg/dl (1.7-2.5); PHOSPHORUS 5.1 mg/dl (2.5-4.9)
[2017-05-04 06:24] LABS: PLATELET COUNT 30 10^3/UL (140-415)
[2017-05-04 06:26] LABS: PLATELET COUNT 30 10^3/UL (140-415)
[2017-05-04 06:35] LABS: ALBUMIN 2.5 g/dl (3.3-4.9); ALBUMIN/GLOBULIN RATIO 0.96; BILIRUBIN,DIRECT 1.5 mg/dl (0.00-0.20); BILIRUBIN,INDIRECT 0.6 mg/dl (0-1.1); BILIRUBIN,TOTAL 2.1 mg/dl (0.2-1.3); CALCIUM 7.2 mg/dl (8.4-10.2); CREATININE 5.37 mg/dl (0.61-1.24); POTASSIUM 4.3 mmol/L (3.5-5.1); TOTAL PROTEIN 5.1 g/dl (6.1-8.1)
[2017-05-04 06:42] LABS: AADO2 Arterial 257.1 mmHg (7.0-24.0); Allen Test ACCEPTAB; Arterial Base Excess 3.4 mmol/L (-3.0-3); Arterial COHb 0.6 % (0.0-3.0); Arterial Fraction of Oxyhgb 96.7 % (93.0-99.0); Arterial HCO3 30.5 mmol/L (22.0-26.0); Arterial MetHb 0.2 % (0.0-1.5); Arterial Total Hemglobin 11.9 g/dl (12.0-18.0); MODE VENT - AC
[2017-05-04 07:04] LABS: D-DIMER > 10000.00 ng/ml (<460)
[2017-05-04 07:21] LABS: ANISOCYTOSIS 1+ (0-0); GIANT THROMBO% (M) 1 % (0-0); MONOCYTES % (M) 4 % (0-11); PLATELET ESTIMATE SIG DECREASED; REACTIVE LYMPHOCYTES% (M) 1 % (0-0)
[2017-05-04 07:29] LABS: FIBRIN SPLIT PRODUCT >10 and <40 ug/ml (<10)
--- NOTE | 2017-05-04 08:20 | RADRPT ---
PROCEDURE: XR Chest. CLINICAL INDICATION: Ventricular tachycardia. Shortness of breath. . TECHNIQUE: Single frontal chest x-ray. COMPARISON: 05/03/2017 FINDINGS: Endotracheal tube is in place with tip 3 cm above the ejrry. Nasogastric tube is present with tip n ear the cardia of the stomach. Sternotomy wires and CABG clips are seen. . Cardiomegaly with calcifi c atherosclerosis of the aorta is present.. Hilar vascular congestion with perihilar infiltrates or edema are unchanged. Left basilar consolidation and small effusion is unchanged.. The osseous struc tures are intact. IMPRESSION: Tubes and lines as described. Cardiomegaly status post CABG. Hilar vascular congestion with perihilar edema or infiltrates is stable. Left basilar consolidation with small left pleural effusion unchanged.. RPTAT: GG .Gokul Bradford MD, MD Date Time Electronically viewed and signed by .Gokul Bradford MD, MD on 05/04/2017 08:19 .L/
--- NOTE | 2017-05-04 08:45 | PN ---
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 # Acute on chronic heart failure with EF 30% # Shock liver improving # Lactic acidosis # Respiratory failure on Vent # Thrombocytopenia s/p 1 unit platelets likley due to shock liver # Anemia S/P 2 units PRBC yesterday Recs - Could not get A line yesterday, attempted by Dr Jorgensen and Dr Bolden, appreciate efforts - Titrating off pressors, possible Angiogram today - 1 unit of platelet today - c/w Amiodarone - Hold TF - c/w cefepime and repeat Bld cx per Dr Espinal - Decrease Hydrocortisone to 40 q12 -- On FI02 40% , Vent management per Pulmonary - c/w Hold Heparin due to thrombocytopenia, c/w ASA - Daily Mg levels - Will assess daily for HD needs Problems: Subjective 24 Hr Interval Summary Free Text/Dictation Pt had frequent PVC and in out of Afib> started on Digoxin and Amiodarone Had short session of HD yesterday aborted after 1.5 hrs as pt became tacycardic +Bleeding noted thru NG today On Dopamine 10, Levophed 3 and Neospherine 140 Exam/Review of Systems Vital Signs Vitals Vital Signs Date Time Temp Pulse Resp B/P Pulse Ox O2 Delivery O2 Flow Rate FiO2 05/04/17 08:15 83 15 89/59 96 05/04/17 08:00 97.4 Mechanical Ventilator 05/04/17 05:13 40 Intake and Output 05/03/17 05/03/17 05/04/17 15:00 23:00 07:00 Intake Total 721.90 ml 879.37 ml 838.57 ml Output Total 200 ml Balance 721.90 ml 679.37 ml 838.57 ml Exam General:Intubated, sedated NECK: JVD elevated, no thyromegaly, intub Lymph: no lymphadenopathy HEART: regular with no S3, BRANDI LUNGS: Coarse sounds ABD: soft, NT, ND, +BS Neuro: non focal SKIN: chronic changes EXT: trace edema Results Result Diagram: 05/04/17 0500 05/04/17 0500 Results 24 hrs Laboratory Tests Test 05/03/17 11:59 05/03/17 13:38 05/03/17 14:24 05/03/17 18:59 Bedside Glucose 69 L 99 82 86 Test 05/04/17 02:18 05/04/17 03:00 05/04/17 05:00 Bedside Glucose 105 Blood Gas Specimen Source Blood arterial Arterial Blood Date Drawn 05/04/2017 2:50:00 AM Arterial Blood pH (Temp corrected) 7.337 L Arterial Blood pCO2 (Temp correct) 58.2 H Arterial Blood pO2 (Temp corrected) 106.7 H Arterial Blood HCO3 30.5 H Arterial Blood Base Excess 3.4 H Arterial Blood Oxygen Saturation 97.5 Hunter Test ACCEPTAB Arterial Blood Gas Puncture Site Right Radial Arterial Blood Carboxyhemoglobin 0.6 Arterial Blood Methemoglobin 0.2 Blood Gas A-a O2 Differential 257.1 H Oxyhemoglobin Percent 96.7 Total Hemoglobin 11.9 L Blood Gas Temperature 37.0 Blood Gas Respiration Rate 16.0 Blood Gas Actual Respiration Rate 16 Blood Gas Modality VENT - AC FiO2 60.0 Blood Gas Tidal Volume 500.0 Blood Gas High PEEP Setting 5.0 Blood Gas Notified Whom TK Blood Gas Notified Time 05/04/2017 2:59:04 AM White Blood Count 19.3 #H Red Blood Count 3.09 L Hemoglobin 10.1 L Hematocrit 29.9 L Mean Corpuscular Volume 96.8 Mean Corpuscular Hemoglobin 32.7 Mean Corpuscular Hemoglobin Concent 33.8 Red Cell Distribution Width 15.4 H Platelet Count 30 L Mean Platelet Volume 12.3 H Neutrophils % Segmented Neutrophils % (Manual) 71 Band Neutrophils % (Manual) 15 H Lymphocytes % Lymphocytes % (Manual) 9 L Reactive Lymphocytes % (Manual) 1 H Monocytes % Monocytes % (Manual) 4 Eosinophils % Basophils % Nucleated Red Blood Cells % 1.0 H Neutrophils # Neutrophils # (Manual) 14.2 H Band Neutrophils # 2.8 H Absolute Lymphocytes (Manual) 1.7 Lymphocytes # Reactive Lymphocytes # 0.1 H Monocytes # Absolute Monocytes (Manual) 0.7 Eosinophils # Basophils # Nucleated Red Blood Cells # Platelet Estimate SIG DECREASED Giant Platelets 1 H Anisocytosis 1+ Macrocytosis 1+ Prothrombin Time 14.7 #H Prothrombin Time Ratio 1.1 INR International Normalized Ratio 1.15 Activated Partial Thromboplast Time 43.3 H Thrombin Time 17.0 Fibrinogen 492.0 #H Plasma Fibrin Degradation Products >10 and <40 H D-Dimer > 22892.00 H Sodium Level 131 L Potassium Level 4.3 Chloride Level 91 L Carbon Dioxide Level 31 Anion Gap 13 Blood Urea Nitrogen 57 H Creatinine 5.37 H Glucose Level 93 Calcium Level 7.2 L Phosphorus Level 5.1 H Magnesium Level 2.2 Total Bilirubin 2.1 H Direct Bilirubin 1.50 H Indirect Bilirubin 0.6 Aspartate Amino Transf (AST/SGOT) 341 #H Alanine Aminotransferase (ALT/SGPT) 1397 H Alkaline Phosphatase 93 # Total Protein 5.1 L Albumin 2.5 L Globulin 2.60 Albumin/Globulin Ratio 0.96 Medications Medications Current Medications Folic Acid (Folic Acid) 1 mg DAILY PO Last administered on 05/03/17 09:15; Admin Dose 1 MG; Start 04/30/17 at 09:00 Ondansetron HCl (Zofran Inj) 4 mg Q6H PRN IV NAUSEA AND/OR VOMITING Last administered on 05/03/17 23:24; Admin Dose 4 MG; Start 04/29/17 at 20:00 Nitroglycerin (Nitroglycerin (Sl Tab) 0.4 Mg) 1 tab Q5M PRN SL CHEST PAIN; Start 04/29/17 at 20:00 Acetaminophen (Tylenol Liquid) 650 mg Q6H PRN PO PAIN LEVEL 1-3 OR FEVER; Start 04/29/17 at 20:00 Acetaminophen (Tylenol Tab) 650 mg Q6H PRN PO PAIN LEVEL 1-3 OR FEVER; Start at 20:00 Acetaminophen/ Hydrocodone Bitart ([place] (5/325)) 1 tab Q6H PRN PO PAIN LEVEL 4 -6; Start 04/29/17 at 20:00 Zolpidem Tartrate (Ambien) 5 mg QHS PRN PO INSOMNIA; Start 04/29/17 at 20:00 Docusate Sodium (Colace) 100 mg Q12H PRN PO CONSTIPATION; Start 04/29/17 at 20: 00 Bisacodyl (Dulcolax) 5 mg DAILY PRN PO CONSTIPATION; Start 04/29/17 at 20:00 Methylprednisolone Sodium Succinate (Solu-Medrol) 40 mg Q8 IV Last administered on 05/04/17 05:52; Admin Dose 40 MG; Start 04/30/17 at 06:00 Aspirin 325 mg 325 mg DAILY PO Last administered on 05/03/17 09:46; Admin Dose 325 MG; Start 04/30/17 at 09:00 Vasopressin 60 unit/Dextrose 60 ml @ 1.2 mls/hr Q12H IV Last administered on 01:07; Admin Dose 2.4 MLS/HR; Start 04/30/17 at 13:00 Fentanyl 100 ml @ 5 mls/hr TITRATE IV Last administered on 05/04/17 03:28; Admin Dose 2 MLS/HR; Start 04/30/17 at 16:00 Phenylephrine HCl 80 mg/Dextrose 250 ml @ 18.75 mls/ hr TITRATE IV Last administered on 05/04/17 00:32; Admin Dose 28.12 MLS/HR; Start 04/30/17 at 18: 00 Norepinephrine/ Dextrose (Levophed/D5W) 250 ml @ 0.46 mls/hr TITRATE IV Last administered on 05/03/17 03:16; Admin Dose 5.15 MLS/HR; Start 04/30/17 at 18:00 Pantoprazole (Protonix Iv) 40 mg BID@06,18 IV Last administered on 05/04/17 05 :52; Admin Dose 40 MG; Start 05/02/17 at 18:00 Diphenhydramine HCl 25 mg 25 mg Q4H PRN IV ITCHING Last administered on 16:41; Admin Dose 25 MG; Start 05/02/17 at 08:30 Cefepime HCl 50 ml @ 100 mls/hr Q24H IVPB Last administered on 05/03/17 11:19 ; Admin Dose 100 MLS/HR; Start 05/02/17 at 11:00 Dobutamine HCl/ Dextrose 250 ml @ 4.755 mls/ hr TITRATE IV Last administered on 05/03/17 22:34; Admin Dose 19.02 MLS/HR; Start 05/03/17 at 09:30 Miscellaneous Information 1 ea NOTE XX ; Start 05/03/17 at 13:00 Glucose (Glutose) 15 gm Q15M PRN PO DECREASED GLUCOSE; Start 05/03/17 at 12:45 Glucose (Glutose) 22.5 gm Q15M PRN PO DECREASED GLUCOSE; Start 05/03/17 at 12: 45 Dextrose (D50w Syringe) 25 ml Q15M PRN IV DECREASED GLUCOSE Last administered on 05/03/17 12:48; Admin Dose 25 ML; Start 05/03/17 at 12:45 Dextrose (D50w Syringe) 50 ml Q15M PRN IV DECREASED GLUCOSE; Start 05/03/17 at 12:46 Glucagon (Glucagen) 1 mg Q15M PRN IM DECREASED GLUCOSE; Start 05/03/17 at 12:46 Glucose 15 gm 15 gm Q15M PRN BUCCAL DECREASED GLUCOSE; Start 05/03/17 at 12:46 Midazolam HCl 50 ml @ 1 mls/hr TITRATE IV Last administered on 05/03/17 15:15 ; Admin Dose 1 MLS/HR; Start 05/03/17 at 15:00 Dextrose/Sodium Chloride 1,000 ml @ 20 mls/hr Q24H IV Last administered on 16:43; Admin Dose 20 MLS/HR; Start 05/03/17 at 16:00 Amiodarone HCl/ Dextrose (Cordarone Iv/ D5W) 500 ml @ 0 mls/hr Q0M IV Last administered on 05/03/17 21:21; Admin Dose 33.3 MLS/HR; Start 05/03/17 at 21:00 ; Stop 05/04/17 at 20:59 Acetaminophen (Tylenol Tab) 650 mg ONCE PO ; Start 05/04/17 at 09:00; Stop 05/05 at 08:59; Status ARNULFO SINGH MD May 04, 2017 08:45
[2017-05-04] MEDS ORDERED: ACETAMINOPHEN 325 MG TAB PO SCH (09:00)
[2017-05-04] MEDS: ASPIRIN 325 MG TAB PO SCH (09:00)
--- NOTE | 2017-05-04 09:39 | RADRPT ---
PROCEDURE: US upper extremity Venous. CLINICAL INDICATION: Right arm edema TECHNIQUE: Multiple sonographic images of the right upper extremity venous system was obtained uti lizing grayscale, color-flow, compressive sonography and doppler imaging with augmentation. The chi ges were reviewed on a PACS workstation. COMPARISON: None. FINDINGS: The right internal jugular vein, radial vein and cephalic vein are not compressible, consistent with thrombosis. There is normal compressibility and flow within the right subclavian vein, axillary vein, brachial, basilic and ulnar veins. RPTAT: AA IMPRESSION: Thrombosis of the right internal jugular, radial vein and cephalic vein. A call report was made and the findings discussed with Dr. Farmer's staff Elli at 05/04/2017 9:3 8:56 AM. .Kaz Desai MD, Date Time Electronically viewed and signed by .Kaz Desai MD, on 05/04/2017 09:39 .S/
[2017-05-04] MEDS: FOLIC ACID 1 MG TAB PO SCH (09:50)
[2017-05-04] MEDS: CEFEPIME 1GM/50 ML (PMX) 50 ML IVPB SCH (11:45)
[2017-05-04] MEDS: METOCLOPRAMIDE 10 MG INJ IV SCH ×3 (11:46→23:52)
--- NOTE | 2017-05-04 11:57 | CONS ---
Date/Time of Note Date/Time of Note DATE: 05/04/17 TIME: 11:51 Assessment/Plan Assessment/Plan Additional Assessment/Plan Chest x-ray was reviewed from today which is again showing bilateral patchy infiltrates. Cardiomegaly is present. Bilateral pleural effusions are present. More pronounced in the left lung. Endotracheal tube is at an adequate level. Next Ventilator setting; AC of 16, tidal volume 500, PEEP of 5, 40% FiO2. Patient is currently on dobutamine at 10 mics per kilogram per minute, Levophed 9 mics per minute, phenylephrine drip at 170 mics per minute, fentanyl 20 mics per hour. Assessment and recommendations; 1. Patient admitted with respiratory failure due to severe CHF and pneumonia causing sepsis with shock. 2. Severe anemia and thrombocytopenia. 3. Upper GI bleed. 4. Chronic renal failure. Patient underwent hemodialysis yesterday. 5. Likely acute coronary syndrome. Continue current supportive care. Prognosis is extremely guarded at this point. I did have a detailed discussion patient's son at bedside and answered all his questions. Various consultants notes were all reviewed in detail. 35 minutes of critical care time was spent evaluating the patient. Consultation Date/Type/Reason Admit Date/Time Apr 29, 2017 at 19:31 Initial Consult Date 05/01/17 Type of Consultation: Pulmonary/critical care Referring Provider: YENNY WINSTON MD 24 HR Interval Summary Free Text/Dictation Patient's condition remains extremely critical. Requiring high-dose pressor support for severe shock. Patient having active upper GI bleed as well. General exam; elderly male, orally intubated. Awake. Somewhat responsive. Exam/Review of Systems Vital Signs Vitals Vital Signs Date Time Temp Pulse Resp B/P Pulse Ox O2 Delivery O2 Flow Rate FiO2 05/04/17 11:15 88 21 98 40 05/04/17 11:00 97.0 104/69 Mechanical Ventilator Intake and Output 05/03/17 05/03/17 05/04/17 15:00 23:00 07:00 Intake Total 721.90 ml 879.37 ml 838.57 ml Output Total 200 ml Balance 721.90 ml 679.37 ml 838.57 ml Exam HEENT exam; supple neck, positive JVD. No lymphadenopathy. Midline trachea. No thyromegaly. Orally intubated. Has bilateral intraocular lens implants. Patient has multiple carious teeth. Chest exam; diminished breath sounds bilaterally. S1-S2 audible, no murmurs. There is a well-healed sternal scar. Abdomen exam; soft, no organomegaly felt. Bowel sounds are sluggish. Extremity exam; trace edema. [employer] exam; patient is awake. But lethargic. Results Result Diagram: 05/04/17 0500 05/04/17 0500 Results 24 hrs Laboratory Tests Test 05/03/17 11:59 05/03/17 13:38 05/03/17 14:24 05/03/17 18:59 Bedside Glucose 69 L 99 82 86 Test 05/04/17 02:18 05/04/17 03:00 05/04/17 05:00 Bedside Glucose 105 Blood Gas Specimen Source Blood arterial Arterial Blood Date Drawn 05/04/2017 2:50:00 AM Arterial Blood pH (Temp corrected) 7.337 L Arterial Blood pCO2 (Temp correct) 58.2 H Arterial Blood pO2 (Temp corrected) 106.7 H Arterial Blood HCO3 30.5 H Arterial Blood Base Excess 3.4 H Arterial Blood Oxygen Saturation 97.5 Hunter Test ACCEPTAB Arterial Blood Gas Puncture Site Right Radial Arterial Blood Carboxyhemoglobin 0.6 Arterial Blood Methemoglobin 0.2 Blood Gas A-a O2 Differential 257.1 H Oxyhemoglobin Percent 96.7 Total Hemoglobin 11.9 L Blood Gas Temperature 37.0 Blood Gas Respiration Rate 16.0 Blood Gas Actual Respiration Rate 16 Blood Gas Modality VENT - AC FiO2 60.0 Blood Gas Tidal Volume 500.0 Blood Gas High PEEP Setting 5.0 Blood Gas Notified Whom TK Blood Gas Notified Time 05/04/2017 2:59:04 AM White Blood Count 19.3 #H Red Blood Count 3.09 L Hemoglobin 10.1 L Hematocrit 29.9 L Mean Corpuscular Volume 96.8 Mean Corpuscular Hemoglobin 32.7 Mean Corpuscular Hemoglobin Concent 33.8 Red Cell Distribution Width 15.4 H Platelet Count 30 L Mean Platelet Volume 12.3 H Neutrophils % Segmented Neutrophils % (Manual) 71 Band Neutrophils % (Manual) 15 H Lymphocytes % Lymphocytes % (Manual) 9 L Reactive Lymphocytes % (Manual) 1 H Monocytes % Monocytes % (Manual) 4 Eosinophils % Basophils % Nucleated Red Blood Cells % 1.0 H Neutrophils # Neutrophils # (Manual) 14.2 H Band Neutrophils # 2.8 H Absolute Lymphocytes (Manual) 1.7 Lymphocytes # Reactive Lymphocytes # 0.1 H Monocytes # Absolute Monocytes (Manual) 0.7 Eosinophils # Basophils # Nucleated Red Blood Cells # Platelet Estimate SIG DECREASED Giant Platelets 1 H Anisocytosis 1+ Macrocytosis 1+ Prothrombin Time 14.7 #H Prothrombin Time Ratio 1.1 INR International Normalized Ratio 1.15 Activated Partial Thromboplast Time 43.3 H Thrombin Time 17.0 Fibrinogen 492.0 #H Plasma Fibrin Degradation Products >10 and <40 H D-Dimer > 61123.00 H Sodium Level 131 L Potassium Level 4.3 Chloride Level 91 L Carbon Dioxide Level 31 Anion Gap 13 Blood Urea Nitrogen 57 H Creatinine 5.37 H Glucose Level 93 Calcium Level 7.2 L Phosphorus Level 5.1 H Magnesium Level 2.2 Total Bilirubin 2.1 H Direct Bilirubin 1.50 H Indirect Bilirubin 0.6 Aspartate Amino Transf (AST/SGOT) 341 #H Alanine Aminotransferase (ALT/SGPT) 1397 H Alkaline Phosphatase 93 # Total Protein 5.1 L Albumin 2.5 L Globulin 2.60 Albumin/Globulin Ratio 0.96 Medications Medications Current Medications Folic Acid (Folic Acid) 1 mg DAILY PO Last administered on 05/04/17 09:50; Admin Dose 1 MG; Start 04/30/17 at 09:00 Ondansetron HCl (Zofran Inj) 4 mg Q6H PRN IV NAUSEA AND/OR VOMITING Last administered on 05/03/17 23:24; Admin Dose 4 MG; Start 04/29/17 at 20:00 Nitroglycerin (Nitroglycerin (Sl Tab) 0.4 Mg) 1 tab Q5M PRN SL CHEST PAIN; Start 04/29/17 at 20:00 Acetaminophen (Tylenol Liquid) 650 mg Q6H PRN PO PAIN LEVEL 1-3 OR FEVER; Start 04/29/17 at 20:00 Acetaminophen (Tylenol Tab) 650 mg Q6H PRN PO PAIN LEVEL 1-3 OR FEVER; Start at 20:00 Acetaminophen/ Hydrocodone Bitart ([place] (5/325)) 1 tab Q6H PRN PO PAIN LEVEL 4 -6; Start 04/29/17 at 20:00 Zolpidem Tartrate (Ambien) 5 mg QHS PRN PO INSOMNIA; Start 04/29/17 at 20:00 Docusate Sodium (Colace) 100 mg Q12H PRN PO CONSTIPATION; Start 04/29/17 at 20: 00 Bisacodyl (Dulcolax) 5 mg DAILY PRN PO CONSTIPATION; Start 04/29/17 at 20:00 Aspirin 325 mg 325 mg DAILY PO Last administered on 05/03/17 09:46; Admin Dose 325 MG; Start 04/30/17 at 09:00 Vasopressin 60 unit/Dextrose 60 ml @ 1.2 mls/hr Q12H IV Last administered on 01:07; Admin Dose 2.4 MLS/HR; Start 04/30/17 at 13:00 Fentanyl 100 ml @ 5 mls/hr TITRATE IV Last administered on 05/04/17 03:28; Admin Dose 2 MLS/HR; Start 04/30/17 at 16:00 Phenylephrine HCl 80 mg/Dextrose 250 ml @ 18.75 mls/ hr TITRATE IV Last administered on 05/04/17 09:57; Admin Dose 31.87 MLS/HR; Start 04/30/17 at 18: 00 Norepinephrine/ Dextrose (Levophed/D5W) 250 ml @ 0.46 mls/hr TITRATE IV Last administered on 05/03/17 03:16; Admin Dose 5.15 MLS/HR; Start 04/30/17 at 18:00 Pantoprazole (Protonix Iv) 40 mg BID@06,18 IV Last administered on 05/04/17 05 :52; Admin Dose 40 MG; Start 05/02/17 at 18:00 Diphenhydramine HCl 25 mg 25 mg Q4H PRN IV ITCHING Last administered on 16:41; Admin Dose 25 MG; Start 05/02/17 at 08:30 Cefepime HCl 50 ml @ 100 mls/hr Q24H IVPB Last administered on 05/04/17 11:45 ; Admin Dose 100 MLS/HR; Start 05/02/17 at 11:00 Dobutamine HCl/ Dextrose 250 ml @ 4.755 mls/ hr TITRATE IV Last administered on 05/03/17 22:34; Admin Dose 19.02 MLS/HR; Start 05/03/17 at 09:30 Miscellaneous Information 1 ea NOTE XX ; Start 05/03/17 at 13:00 Glucose (Glutose) 15 gm Q15M PRN PO DECREASED GLUCOSE; Start 05/03/17 at 12:45 Glucose (Glutose) 22.5 gm Q15M PRN PO DECREASED GLUCOSE; Start 05/03/17 at 12: 45 Dextrose (D50w Syringe) 25 ml Q15M PRN IV DECREASED GLUCOSE Last administered on 05/03/17 12:48; Admin Dose 25 ML; Start 05/03/17 at 12:45 Dextrose (D50w Syringe) 50 ml Q15M PRN IV DECREASED GLUCOSE; Start 05/03/17 at 12:46 Glucagon (Glucagen) 1 mg Q15M PRN IM DECREASED GLUCOSE; Start 05/03/17 at 12:46 Glucose 15 gm 15 gm Q15M PRN BUCCAL DECREASED GLUCOSE; Start 05/03/17 at 12:46 Midazolam HCl 50 ml @ 1 mls/hr TITRATE IV Last administered on 05/03/17 15:15 ; Admin Dose 1 MLS/HR; Start 05/03/17 at 15:00 Dextrose/Sodium Chloride 1,000 ml @ 20 mls/hr Q24H IV Last administered on 16:43; Admin Dose 20 MLS/HR; Start 05/03/17 at 16:00 Amiodarone HCl/ Dextrose (Cordarone Iv/ D5W) 500 ml @ 0 mls/hr Q0M IV Last administered on 05/03/17 21:21; Admin Dose 33.3 MLS/HR; Start 05/03/17 at 21:00 ; Stop 05/04/17 at 20:59 Acetaminophen (Tylenol Tab) 650 mg ONCE PO Last administered on 05/04/17 09:10 ; Admin Dose 650 MG; Start 05/04/17 at 09:00; Stop 05/05/17 at 08:59 Methylprednisolone Sodium Succinate (Solu-Medrol) 40 mg Q12 IV Last administered on 05/04/17 09:51; Admin Dose 40 MG; Start 05/04/17 at 09:00 Metoclopramide HCl (Reglan) 5 mg Q6 IV Last administered on 05/04/17 11:46; Admin Dose 5 MG; Start 05/04/17 at 12:00 Nystatin (Nystatin Susp) 5 ml QID PO ; Start 05/04/17 at 13:00 CHARLES EMMANUEL May 04, 2017 11:57
--- NOTE | 2017-05-04 12:05 | CONS ---
Date/Time of Note Date/Time of Note DATE: 05/04/17 TIME: 11:44 Assessment/Plan Assessment/Plan Chief Complaint/Hosp Course IMP: 1.Acute ID-now downtrending cardiac enzymes without signs of ongoing myocardial necrosis 2.Hypotension-on 2 pressors and 1 inotrope 3.VT-now in SR 4.resp failure s/p intubation 5.renal failure-on HD 6. Leukocytosis 7. Thrombocytopenia 8. Shock liver 9. CHF-systolic acute on chronic likely with EF 20% by echo this admit Recc: -ICU monitoring -wean pressors as tolerated starting with bárbara as pure afterload -Continue inotropic therapy for now and if has recurrent VT can consider change to milrinone -Trend cardiac enzymes -Follow platelet count with intermittent holding of asa and heparin to prevent further bleeding complication -Continue AMIO IV for now -appreciate EP input -Will consider LHC when improved hemodynamics and blood cell indices -F/U cx data and continue abx's -HD for volume removal as tolerated -transfuse platelets as necessary Problems: Consultation Date/Type/Reason Admit Date/Time Apr 29, 2017 at 19:31 Initial Consult Date 05/02/17 Type of Consultation: cardiology Reason for Consultation Acute ID/VT/shock Referring Provider: YENNY WINSTON MD Exam/Review of Systems Vital Signs Vitals Vital Signs Date Time Temp Pulse Resp B/P Pulse Ox O2 Delivery O2 Flow Rate FiO2 05/04/17 09:23 82 21 96 40 05/04/17 08:15 89/59 05/04/17 08:00 97.4 Mechanical Ventilator Intake and Output 05/03/17 05/03/17 05/04/17 15:00 23:00 07:00 Intake Total 721.90 ml 879.37 ml 838.57 ml Output Total 200 ml Balance 721.90 ml 679.37 ml 838.57 ml Exam Review of Systems: CONSTITUTIONAL: No fevers, chills. PULMONARY: intubated CARDIOVASCULAR: No obvious chest pain/palpitations GASTROINTESTINAL: No nausea/vomiting. GENITOURINARY: No hematuria/dysuria. MUSCULOSKELETAL: No myagias/arthalgias. PSYCHIATRIC: The patient denies depression. NEUROLOGIC: sedated Constitutional: other (sedated) Head: normocephalic ENMT: intubated Neck: jvd (9 cm water), supple Respiratory: other (upper airway rhocherous sounds) Cardiovascular: regular rate and rhythm Gastrointestinal: non-tender, soft Musculoskeletal: muscle tone (normal) Extremities: edema (trace/B) Neurological: other (sedated) Results Result Diagram: 05/04/17 0500 05/04/17 0500 Results 24 hrs Laboratory Tests Test 05/03/17 11:59 05/03/17 13:38 05/03/17 14:24 05/03/17 18:59 Bedside Glucose 69 L 99 82 86 Test 05/04/17 02:18 05/04/17 03:00 05/04/17 05:00 Bedside Glucose 105 Blood Gas Specimen Source Blood arterial Arterial Blood Date Drawn 05/04/2017 2:50:00 AM Arterial Blood pH (Temp corrected) 7.337 L Arterial Blood pCO2 (Temp correct) 58.2 H Arterial Blood pO2 (Temp corrected) 106.7 H Arterial Blood HCO3 30.5 H Arterial Blood Base Excess 3.4 H Arterial Blood Oxygen Saturation 97.5 Hunter Test ACCEPTAB Arterial Blood Gas Puncture Site Right Radial Arterial Blood Carboxyhemoglobin 0.6 Arterial Blood Methemoglobin 0.2 Blood Gas A-a O2 Differential 257.1 H Oxyhemoglobin Percent 96.7 Total Hemoglobin 11.9 L Blood Gas Temperature 37.0 Blood Gas Respiration Rate 16.0 Blood Gas Actual Respiration Rate 16 Blood Gas Modality VENT - AC FiO2 60.0 Blood Gas Tidal Volume 500.0 Blood Gas High PEEP Setting 5.0 Blood Gas Notified Whom TK Blood Gas Notified Time 05/04/2017 2:59:04 AM White Blood Count 19.3 #H Red Blood Count 3.09 L Hemoglobin 10.1 L Hematocrit 29.9 L Mean Corpuscular Volume 96.8 Mean Corpuscular Hemoglobin 32.7 Mean Corpuscular Hemoglobin Concent 33.8 Red Cell Distribution Width 15.4 H Platelet Count 30 L Mean Platelet Volume 12.3 H Neutrophils % Segmented Neutrophils % (Manual) 71 Band Neutrophils % (Manual) 15 H Lymphocytes % Lymphocytes % (Manual) 9 L Reactive Lymphocytes % (Manual) 1 H Monocytes % Monocytes % (Manual) 4 Eosinophils % Basophils % Nucleated Red Blood Cells % 1.0 H Neutrophils # Neutrophils # (Manual) 14.2 H Band Neutrophils # 2.8 H Absolute Lymphocytes (Manual) 1.7 Lymphocytes # Reactive Lymphocytes # 0.1 H Monocytes # Absolute Monocytes (Manual) 0.7 Eosinophils # Basophils # Nucleated Red Blood Cells # Platelet Estimate SIG DECREASED Giant Platelets 1 H Anisocytosis 1+ Macrocytosis 1+ Prothrombin Time 14.7 #H Prothrombin Time Ratio 1.1 INR International Normalized Ratio 1.15 Activated Partial Thromboplast Time 43.3 H Thrombin Time 17.0 Fibrinogen 492.0 #H Plasma Fibrin Degradation Products >10 and <40 H D-Dimer > 09681.00 H Sodium Level 131 L Potassium Level 4.3 Chloride Level 91 L Carbon Dioxide Level 31 Anion Gap 13 Blood Urea Nitrogen 57 H Creatinine 5.37 H Glucose Level 93 Calcium Level 7.2 L Phosphorus Level 5.1 H Magnesium Level 2.2 Total Bilirubin 2.1 H Direct Bilirubin 1.50 H Indirect Bilirubin 0.6 Aspartate Amino Transf (AST/SGOT) 341 #H Alanine Aminotransferase (ALT/SGPT) 1397 H Alkaline Phosphatase 93 # Total Protein 5.1 L Albumin 2.5 L Globulin 2.60 Albumin/Globulin Ratio 0.96 Medications Medications Current Medications Folic Acid (Folic Acid) 1 mg DAILY PO Last administered on 05/04/17 09:50; Admin Dose 1 MG; Start 04/30/17 at 09:00 Ondansetron HCl (Zofran Inj) 4 mg Q6H PRN IV NAUSEA AND/OR VOMITING Last administered on 05/03/17 23:24; Admin Dose 4 MG; Start 04/29/17 at 20:00 Nitroglycerin (Nitroglycerin (Sl Tab) 0.4 Mg) 1 tab Q5M PRN SL CHEST PAIN; Start 04/29/17 at 20:00 Acetaminophen (Tylenol Liquid) 650 mg Q6H PRN PO PAIN LEVEL 1-3 OR FEVER; Start 04/29/17 at 20:00 Acetaminophen (Tylenol Tab) 650 mg Q6H PRN PO PAIN LEVEL 1-3 OR FEVER; Start at 20:00 Acetaminophen/ Hydrocodone Bitart ([place] (5/325)) 1 tab Q6H PRN PO PAIN LEVEL 4 -6; Start 04/29/17 at 20:00 Zolpidem Tartrate (Ambien) 5 mg QHS PRN PO INSOMNIA; Start 04/29/17 at 20:00 Docusate Sodium (Colace) 100 mg Q12H PRN PO CONSTIPATION; Start 04/29/17 at 20: 00 Bisacodyl (Dulcolax) 5 mg DAILY PRN PO CONSTIPATION; Start 04/29/17 at 20:00 Aspirin 325 mg 325 mg DAILY PO Last administered on 05/03/17 09:46; Admin Dose 325 MG; Start 04/30/17 at 09:00 Vasopressin 60 unit/Dextrose 60 ml @ 1.2 mls/hr Q12H IV Last administered on 01:07; Admin Dose 2.4 MLS/HR; Start 04/30/17 at 13:00 Fentanyl 100 ml @ 5 mls/hr TITRATE IV Last administered on 05/04/17 03:28; Admin Dose 2 MLS/HR; Start 04/30/17 at 16:00 Phenylephrine HCl 80 mg/Dextrose 250 ml @ 18.75 mls/ hr TITRATE IV Last administered on 05/04/17 09:57; Admin Dose 31.87 MLS/HR; Start 04/30/17 at 18: 00 Norepinephrine/ Dextrose (Levophed/D5W) 250 ml @ 0.46 mls/hr TITRATE IV Last administered on 05/03/17 03:16; Admin Dose 5.15 MLS/HR; Start 04/30/17 at 18:00 Pantoprazole (Protonix Iv) 40 mg BID@06,18 IV Last administered on 05/04/17 05 :52; Admin Dose 40 MG; Start 05/02/17 at 18:00 Diphenhydramine HCl 25 mg 25 mg Q4H PRN IV ITCHING Last administered on 16:41; Admin Dose 25 MG; Start 05/02/17 at 08:30 Cefepime HCl 50 ml @ 100 mls/hr Q24H IVPB Last administered on 05/03/17 11:19 ; Admin Dose 100 MLS/HR; Start 05/02/17 at 11:00 Dobutamine HCl/ Dextrose 250 ml @ 4.755 mls/ hr TITRATE IV Last administered on 05/03/17 22:34; Admin Dose 19.02 MLS/HR; Start 05/03/17 at 09:30 Miscellaneous Information 1 ea NOTE XX ; Start 05/03/17 at 13:00 Glucose (Glutose) 15 gm Q15M PRN PO DECREASED GLUCOSE; Start 05/03/17 at 12:45 Glucose (Glutose) 22.5 gm Q15M PRN PO DECREASED GLUCOSE; Start 05/03/17 at 12: 45 Dextrose (D50w Syringe) 25 ml Q15M PRN IV DECREASED GLUCOSE Last administered on 05/03/17 12:48; Admin Dose 25 ML; Start 05/03/17 at 12:45 Dextrose (D50w Syringe) 50 ml Q15M PRN IV DECREASED GLUCOSE; Start 05/03/17 at 12:46 Glucagon (Glucagen) 1 mg Q15M PRN IM DECREASED GLUCOSE; Start 05/03/17 at 12:46 Glucose 15 gm 15 gm Q15M PRN BUCCAL DECREASED GLUCOSE; Start 05/03/17 at 12:46 Midazolam HCl 50 ml @ 1 mls/hr TITRATE IV Last administered on 05/03/17 15:15 ; Admin Dose 1 MLS/HR; Start 05/03/17 at 15:00 Dextrose/Sodium Chloride 1,000 ml @ 20 mls/hr Q24H IV Last administered on 16:43; Admin Dose 20 MLS/HR; Start 05/03/17 at 16:00 Amiodarone HCl/ Dextrose (Cordarone Iv/ D5W) 500 ml @ 0 mls/hr Q0M IV Last administered on 05/03/17 21:21; Admin Dose 33.3 MLS/HR; Start 05/03/17 at 21:00 ; Stop 05/04/17 at 20:59 Acetaminophen (Tylenol Tab) 650 mg ONCE PO Last administered on 05/04/17 09:10 ; Admin Dose 650 MG; Start 05/04/17 at 09:00; Stop 05/05/17 at 08:59 Methylprednisolone Sodium Succinate (Solu-Medrol) 40 mg Q12 IV Last administered on 05/04/17 09:51; Admin Dose 40 MG; Start 05/04/17 at 09:00 Metoclopramide HCl (Reglan) 5 mg Q6 IV ; Start 05/04/17 at 12:00 MARCO KENNEDY May 04, 2017 12:05
[2017-05-04] MEDS: NYSTATIN SUSP 5 ML CUP PO SCH ×3 (12:52→21:12)
[2017-05-04] MEDS: DOBUTamine/D5W 2 MG/ML DRIP 250 ML IV SCH (12:53)
--- NOTE | 2017-05-04 15:06 | PN ---
DATE: 05/04/2017 SUBJECTIVE DATA: No acute changes. The patient remains intubated on multiple pressors. He is afebrile, temperature 97.4, pulse 80, respirations 15, blood pressure 95/54, saturation 96 on 40 FiO2. LABORATORY AND DIAGNOSTIC DATA: WBC today 19.3, H and H 10.1 and 29.1, platelets 30, bands 15. BUN 57, creatinine 5.37, sodium 131. Microbiology, repeat blood cultures preliminary negative. Endotracheal aspirate growing Tala albicans. INDWELLINGS: Patient has endotracheal tube, NG tube, right femoral triple lumen catheter, left upper extremity AV fistula. ANTIMICROBIALS: The patient is on cefepime and status post vancomycin. PHYSICAL EXAMINATION: GENERAL: This is a fragile, chronically ill-appearing, elderly man, who is in no distress. HEENT: Head atraumatic and normocephalic. Sclerae anicteric. Buccal mucosa dry. NECK: Supple. CHEST: Rise symmetrical. Breath sounds diminished at the bases. HEART: S1, S2, irregular. ABDOMEN: Soft. Bowel sounds hypoactive. EXTREMITIES: With cyanosis, mottled. ASSESSMENT: 1. Shock, multifactorial, likely septic and cardiogenic. 2. Strep bacteremia. 3. Pneumonia, possibly aspiration type, possibly streptococcal. 4. Distended gallbladder as per CT of the chest and abdomen with cholelithiasis and thickened gallbladder wall. 5. Transaminitis, likely shock liver, the numbers are tracing down. 6. Arrhythmia with V-tach on admission, on amiodarone drip. 7. End-stage renal disease, hemodialysis dependent. 8. History of coronary artery bypass grafting. PLAN: The patient remains hemodynamically unstable. Followed by multiple consultants. Repeat blood cultures negative. Continue cefepime. Add oral nystatin for Tala albicans growing in his sputum. The patient is not a candidate for Diflucan secondary to interaction with amiodarone. Dictated By: Chelly Hudson NP /valarie/jas /Document#: [id number]
--- NOTE | 2017-05-04 16:11 | RADRPT ---
Vent Rate: 75 bpm RR Interval: 0 msec NC Interval: 174 msec QRS Duration: 84 msec QT Interval: 382 msec QTC Interval: 426 msec P-R-T [place]: 74 - 61 - 24 degrees Normal sinus rhythm Low voltage QRS Cannot rule out Anterior infarct , age undetermined Abnormal ECG Electronically Signed By: Darian Miller [id number]
[2017-05-04] MEDS: DEXTROSE 5%-0.9% NACL 1,000 ML IV SCH (16:42)
[2017-05-04 16:56] LABS: CK-MB 3.55 ng/ml (0.0-2.4)
[2017-05-04 16:58] LABS: TROPONIN-I 15.2 ng/ml (0.00-0.12)
--- NOTE | 2017-05-04 20:52 | CONS ---
Date/Time of Note Date/Time of Note DATE: 05/04/17 TIME: 20:46 Assessment/Plan Assessment/Plan Chief Complaint/Hosp Course #Thrombocytopenia -this is secondary to shock liver as evidenced by the markedly elevated AST/ALT (>7000/5000). Liver enzymes are now trending down -no evidence of hemolytic anemia -will continue to check daily DIC panel and transfuse 1 unit cryo if fibrinogen is < 150. fibrinogen is currently > 400 -would hold anticoagulation until platelet count is > 50K -platelet transfusion not needed today #Anemia -2/2 shock, sepsis and questionable bleed -s/p 2 units of PRBCs given yesterday #Cardiogenic shock with shock liver -management per cardiology -patient currently on pressors and ionotropic support #ESRD wit acidosis -pt now on Bicarb -continue HD as tolerated. currently blood pressure is very labile #Respiratory failure -currently intubated -cont management per pulmonary Problems: Consultation Date/Type/Reason Admit Date/Time Apr 29, 2017 at 19:31 Initial Consult Date 05/02/17 Type of Consultation: Hematology Reason for Consultation thrombocytopenia Referring Provider: YENNY WINSTON MD 24 HR Interval Summary Free Text/Dictation pt remains on 2 pressors and 1 ionotrope. LFT's are down trending. pt was transfused on 05/03 and counts are stable Exam/Review of Systems Vital Signs Vitals Vital Signs Date Time Temp Pulse Resp B/P Pulse Ox O2 Delivery O2 Flow Rate FiO2 05/04/17 19:46 77 16 100 40 05/04/17 18:45 90/54 Mechanical Ventilator 05/04/17 16:00 98.5 Intake and Output 05/03/17 05/03/17 05/04/17 15:00 23:00 07:00 Intake Total 721.90 ml 879.37 ml 838.57 ml Output Total 200 ml Balance 721.90 ml 679.37 ml 838.57 ml Exam Constitutional: alert, non-verbal Eyes: icteric ENMT: nl external ears & nose Neck: supple Respiratory: clear to auscultation Cardiovascular: regular rate and rhythm Gastrointestinal: soft Musculoskeletal: nl extremities to inspection Results Result Diagram: 05/04/17 0500 05/04/17 0500 Results 24 hrs Laboratory Tests Test 05/04/17 02:18 05/04/17 03:00 05/04/17 05:00 05/04/17 14:33 Bedside Glucose 105 96 Blood Gas Specimen Source Blood arterial Arterial Blood Date Drawn 05/04/2017 2:50:00 AM Arterial Blood pH (Temp corrected) 7.337 L Arterial Blood pCO2 (Temp correct) 58.2 H Arterial Blood pO2 (Temp corrected) 106.7 H Arterial Blood HCO3 30.5 H Arterial Blood Base Excess 3.4 H Arterial Blood Oxygen Saturation 97.5 Hunter Test ACCEPTAB Arterial Blood Gas Puncture Site Right Radial Arterial Blood Carboxyhemoglobin 0.6 Arterial Blood Methemoglobin 0.2 Blood Gas A-a O2 Differential 257.1 H Oxyhemoglobin Percent 96.7 Total Hemoglobin 11.9 L Blood Gas Temperature 37.0 Blood Gas Respiration Rate 16.0 Blood Gas Actual Respiration Rate 16 Blood Gas Modality VENT - AC FiO2 60.0 Blood Gas Tidal Volume 500.0 Blood Gas High PEEP Setting 5.0 Blood Gas Notified Whom TK Blood Gas Notified Time 05/04/2017 2:59:04 AM White Blood Count 19.3 #H Red Blood Count 3.09 L Hemoglobin 10.1 L Hematocrit 29.9 L Mean Corpuscular Volume 96.8 Mean Corpuscular Hemoglobin 32.7 Mean Corpuscular Hemoglobin Concent 33.8 Red Cell Distribution Width 15.4 H Platelet Count 30 L Mean Platelet Volume 12.3 H Neutrophils % Segmented Neutrophils % (Manual) 71 Band Neutrophils % (Manual) 15 H Lymphocytes % Lymphocytes % (Manual) 9 L Reactive Lymphocytes % (Manual) 1 H Monocytes % Monocytes % (Manual) 4 Eosinophils % Basophils % Nucleated Red Blood Cells % 1.0 H Neutrophils # Neutrophils # (Manual) 14.2 H Band Neutrophils # 2.8 H Absolute Lymphocytes (Manual) 1.7 Lymphocytes # Reactive Lymphocytes # 0.1 H Monocytes # Absolute Monocytes (Manual) 0.7 Eosinophils # Basophils # Nucleated Red Blood Cells # Platelet Estimate SIG DECREASED Giant Platelets 1 H Anisocytosis 1+ Macrocytosis 1+ Prothrombin Time 14.7 #H Prothrombin Time Ratio 1.1 INR International Normalized Ratio 1.15 Activated Partial Thromboplast Time 43.3 H Thrombin Time 17.0 Fibrinogen 492.0 #H Plasma Fibrin Degradation Products >10 and <40 H D-Dimer > 66745.00 H Sodium Level 131 L Potassium Level 4.3 Chloride Level 91 L Carbon Dioxide Level 31 Anion Gap 13 Blood Urea Nitrogen 57 H Creatinine 5.37 H Glucose Level 93 Calcium Level 7.2 L Phosphorus Level 5.1 H Magnesium Level 2.2 Total Bilirubin 2.1 H Direct Bilirubin 1.50 H Indirect Bilirubin 0.6 Aspartate Amino Transf (AST/SGOT) 341 #H Alanine Aminotransferase (ALT/SGPT) 1397 H Alkaline Phosphatase 93 # Total Protein 5.1 L Albumin 2.5 L Globulin 2.60 Albumin/Globulin Ratio 0.96 Test 05/04/17 15:23 Creatine Kinase 203 H Creatine Kinase Index 1.7 Creatinine Kinase MB (Mass) 3.55 H Troponin I 15.200 *H Medications Medications Current Medications Folic Acid (Folic Acid) 1 mg DAILY PO Last administered on 05/04/17 09:50; Admin Dose 1 MG; Start 04/30/17 at 09:00 Ondansetron HCl (Zofran Inj) 4 mg Q6H PRN IV NAUSEA AND/OR VOMITING Last administered on 05/03/17 23:24; Admin Dose 4 MG; Start 04/29/17 at 20:00 Nitroglycerin (Nitroglycerin (Sl Tab) 0.4 Mg) 1 tab Q5M PRN SL CHEST PAIN; Start 04/29/17 at 20:00 Acetaminophen (Tylenol Liquid) 650 mg Q6H PRN PO PAIN LEVEL 1-3 OR FEVER; Start 04/29/17 at 20:00 Acetaminophen (Tylenol Tab) 650 mg Q6H PRN PO PAIN LEVEL 1-3 OR FEVER; Start at 20:00 Acetaminophen/ Hydrocodone Bitart ([place] (5/325)) 1 tab Q6H PRN PO PAIN LEVEL 4 -6; Start 04/29/17 at 20:00 Zolpidem Tartrate (Ambien) 5 mg QHS PRN PO INSOMNIA; Start 04/29/17 at 20:00 Docusate Sodium (Colace) 100 mg Q12H PRN PO CONSTIPATION; Start 04/29/17 at 20: 00 Bisacodyl (Dulcolax) 5 mg DAILY PRN PO CONSTIPATION; Start 04/29/17 at 20:00 Aspirin 325 mg 325 mg DAILY PO Last administered on 05/03/17 09:46; Admin Dose 325 MG; Start 04/30/17 at 09:00 Vasopressin 60 unit/Dextrose 60 ml @ 1.2 mls/hr Q12H IV Last administered on 01:07; Admin Dose 2.4 MLS/HR; Start 04/30/17 at 13:00 Fentanyl 100 ml @ 5 mls/hr TITRATE IV Last administered on 05/04/17 03:28; Admin Dose 2 MLS/HR; Start 04/30/17 at 16:00 Phenylephrine HCl 80 mg/Dextrose 250 ml @ 18.75 mls/ hr TITRATE IV Last administered on 05/04/17 09:57; Admin Dose 31.87 MLS/HR; Start 04/30/17 at 18: 00 Norepinephrine/ Dextrose (Levophed/D5W) 250 ml @ 0.46 mls/hr TITRATE IV Last administered on 05/03/17 03:16; Admin Dose 5.15 MLS/HR; Start 04/30/17 at 18:00 Pantoprazole (Protonix Iv) 40 mg BID@06,18 IV Last administered on 05/04/17 17 :52; Admin Dose 40 MG; Start 05/02/17 at 18:00 Diphenhydramine HCl 25 mg 25 mg Q4H PRN IV ITCHING Last administered on 16:41; Admin Dose 25 MG; Start 05/02/17 at 08:30 Cefepime HCl 50 ml @ 100 mls/hr Q24H IVPB Last administered on 05/04/17 11:45 ; Admin Dose 100 MLS/HR; Start 05/02/17 at 11:00 Dobutamine HCl/ Dextrose 250 ml @ 4.755 mls/ hr TITRATE IV Last administered on 05/04/17 12:53; Admin Dose 19.02 MLS/HR; Start 05/03/17 at 09:30 Miscellaneous Information 1 ea NOTE XX ; Start 05/03/17 at 13:00 Glucose (Glutose) 15 gm Q15M PRN PO DECREASED GLUCOSE; Start 05/03/17 at 12:45 Glucose (Glutose) 22.5 gm Q15M PRN PO DECREASED GLUCOSE; Start 05/03/17 at 12: 45 Dextrose (D50w Syringe) 25 ml Q15M PRN IV DECREASED GLUCOSE Last administered on 05/03/17 12:48; Admin Dose 25 ML; Start 05/03/17 at 12:45 Dextrose (D50w Syringe) 50 ml Q15M PRN IV DECREASED GLUCOSE; Start 05/03/17 at 12:46 Glucagon (Glucagen) 1 mg Q15M PRN IM DECREASED GLUCOSE; Start 05/03/17 at 12:46 Glucose 15 gm 15 gm Q15M PRN BUCCAL DECREASED GLUCOSE; Start 05/03/17 at 12:46 Midazolam HCl 50 ml @ 1 mls/hr TITRATE IV Last administered on 05/03/17 15:15 ; Admin Dose 1 MLS/HR; Start 05/03/17 at 15:00 Dextrose/Sodium Chloride 1,000 ml @ 20 mls/hr Q24H IV Last administered on 16:42; Admin Dose 20 MLS/HR; Start 05/03/17 at 16:00 Amiodarone HCl/ Dextrose (Cordarone Iv/ D5W) 500 ml @ 0 mls/hr Q0M IV Last administered on 05/03/17 21:21; Admin Dose 33.3 MLS/HR; Start 05/03/17 at 21:00 ; Stop 05/04/17 at 20:59 Acetaminophen (Tylenol Tab) 650 mg ONCE PO Last administered on 05/04/17 09:10 ; Admin Dose 650 MG; Start 05/04/17 at 09:00; Stop 05/05/17 at 08:59 Methylprednisolone Sodium Succinate (Solu-Medrol) 40 mg Q12 IV Last administered on 05/04/17 09:51; Admin Dose 40 MG; Start 05/04/17 at 09:00 Metoclopramide HCl (Reglan) 5 mg Q6 IV Last administered on 05/04/17 17:52; Admin Dose 5 MG; Start 05/04/17 at 12:00 Nystatin (Nystatin Susp) 5 ml QID PO Last administered on 05/04/17 16:42; Admin Dose 5 ML; Start 05/04/17 at 13:00 JEFF HANSON M.D. May 04, 2017 20:52
--- NOTE | 2017-05-04 21:28 | CONS ---
Date/Time of Note Date/Time of Note DATE: 05/04/17 TIME: 21:24 Assessment/Plan Assessment/Plan Chief Complaint/Hosp Course This is a 87 y/o male with pmh of HTN, HLD, RF on HD, CAD and CABG x 20 yrs ago (1997) Presented to the hospital with VT at a rate of 220 bpm, with a RBBB and inferior axis. The pt required a shock and was sent to the ICU. Per lab notes, Trop was 30 on the day of admission. The pt later in the ICU, required to be intubated. The Echo was done yesterday, the pt has an EF of 30% with mild AI and Mild MR per broadcast technician. The ECG did not reveal ST elevation. The family wants everything to be done. He is now on 4 pressors, Levophed, vasopressin, Sean and Dobutamine. The pt is now receiving HD and the BP is 86 systolic. He is on 100% FIO2. 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 05/02/2017 The patient is improving with the LFTs decreasing, the Trop trending down, the FIO2 is now at 50% instead of 100%, He is on 3 pressors and will wean off the pressors again. 05/03/2017 The pt is still on 3 pressors He is using less FIO2 at 40 % The pt will need an A line, attempted it, but could not pass the small wire. Will need kit from the dental lab technician tomorrow the pt will need to start on Amiodarone drip for HR control and on Digoxin 0.5 mg IV x 1 only the pt will also then need to be slowly weaned off of the pressors. will check ABG in AM. 05/04/2017 the pt is in SR, at 77 bpm.The Amiodarone should be continued for now. No more VT or PVCs either The pt is now on two pressors and on 40 % FiO2 Has a right arm DVT and IJ thrombus Cannot be on Heparin because of thrombocythopenia and requiring platelt transfusion The pt will cont the med tx and hopefuly may be able to able to reduce to one pressor soon. Problems: Additional Assessment/Plan see above Consultation Date/Type/Reason Admit Date/Time Apr 29, 2017 at 19:31 Initial Consult Date 05/02/17 Type of Consultation: Hematology Referring Provider: YENNY WINSTON MD 24 HR Interval Summary Free Text/Dictation The pt is on 40 % FIO2, on two pressors now, in stead of being on 4. The pt is responding when the fentanyl is decreased. Exam/Review of Systems Vital Signs Vitals Vital Signs Date Time Temp Pulse Resp B/P Pulse Ox O2 Delivery O2 Flow Rate FiO2 05/04/17 19:46 77 16 100 40 05/04/17 18:45 90/54 Mechanical Ventilator 05/04/17 16:00 98.5 Intake and Output 05/03/17 05/03/17 05/04/17 15:00 23:00 07:00 Intake Total 721.90 ml 879.37 ml 838.57 ml Output Total 200 ml Balance 721.90 ml 679.37 ml 838.57 ml Results Result Diagram: 05/04/17 0500 05/04/17 0500 Results 24 hrs Laboratory Tests Test 05/04/17 02:18 05/04/17 03:00 05/04/17 05:00 05/04/17 14:33 Bedside Glucose 105 96 Blood Gas Specimen Source Blood arterial Arterial Blood Date Drawn 05/04/2017 2:50:00 AM Arterial Blood pH (Temp corrected) 7.337 L Arterial Blood pCO2 (Temp correct) 58.2 H Arterial Blood pO2 (Temp corrected) 106.7 H Arterial Blood HCO3 30.5 H Arterial Blood Base Excess 3.4 H Arterial Blood Oxygen Saturation 97.5 Hunter Test ACCEPTAB Arterial Blood Gas Puncture Site Right Radial Arterial Blood Carboxyhemoglobin 0.6 Arterial Blood Methemoglobin 0.2 Blood Gas A-a O2 Differential 257.1 H Oxyhemoglobin Percent 96.7 Total Hemoglobin 11.9 L Blood Gas Temperature 37.0 Blood Gas Respiration Rate 16.0 Blood Gas Actual Respiration Rate 16 Blood Gas Modality VENT - AC FiO2 60.0 Blood Gas Tidal Volume 500.0 Blood Gas High PEEP Setting 5.0 Blood Gas Notified Whom TK Blood Gas Notified Time 05/04/2017 2:59:04 AM White Blood Count 19.3 #H Red Blood Count 3.09 L Hemoglobin 10.1 L Hematocrit 29.9 L Mean Corpuscular Volume 96.8 Mean Corpuscular Hemoglobin 32.7 Mean Corpuscular Hemoglobin Concent 33.8 Red Cell Distribution Width 15.4 H Platelet Count 30 L Mean Platelet Volume 12.3 H Neutrophils % Segmented Neutrophils % (Manual) 71 Band Neutrophils % (Manual) 15 H Lymphocytes % Lymphocytes % (Manual) 9 L Reactive Lymphocytes % (Manual) 1 H Monocytes % Monocytes % (Manual) 4 Eosinophils % Basophils % Nucleated Red Blood Cells % 1.0 H Neutrophils # Neutrophils # (Manual) 14.2 H Band Neutrophils # 2.8 H Absolute Lymphocytes (Manual) 1.7 Lymphocytes # Reactive Lymphocytes # 0.1 H Monocytes # Absolute Monocytes (Manual) 0.7 Eosinophils # Basophils # Nucleated Red Blood Cells # Platelet Estimate SIG DECREASED Giant Platelets 1 H Anisocytosis 1+ Macrocytosis 1+ Prothrombin Time 14.7 #H Prothrombin Time Ratio 1.1 INR International Normalized Ratio 1.15 Activated Partial Thromboplast Time 43.3 H Thrombin Time 17.0 Fibrinogen 492.0 #H Plasma Fibrin Degradation Products >10 and <40 H D-Dimer > 58618.00 H Sodium Level 131 L Potassium Level 4.3 Chloride Level 91 L Carbon Dioxide Level 31 Anion Gap 13 Blood Urea Nitrogen 57 H Creatinine 5.37 H Glucose Level 93 Calcium Level 7.2 L Phosphorus Level 5.1 H Magnesium Level 2.2 Total Bilirubin 2.1 H Direct Bilirubin 1.50 H Indirect Bilirubin 0.6 Aspartate Amino Transf (AST/SGOT) 341 #H Alanine Aminotransferase (ALT/SGPT) 1397 H Alkaline Phosphatase 93 # Total Protein 5.1 L Albumin 2.5 L Globulin 2.60 Albumin/Globulin Ratio 0.96 Test 05/04/17 15:23 Creatine Kinase 203 H Creatine Kinase Index 1.7 Creatinine Kinase MB (Mass) 3.55 H Troponin I 15.200 *H Medications Medications Current Medications Folic Acid (Folic Acid) 1 mg DAILY PO Last administered on 05/04/17 09:50; Admin Dose 1 MG; Start 04/30/17 at 09:00 Ondansetron HCl (Zofran Inj) 4 mg Q6H PRN IV NAUSEA AND/OR VOMITING Last administered on 05/03/17 23:24; Admin Dose 4 MG; Start 04/29/17 at 20:00 Nitroglycerin (Nitroglycerin (Sl Tab) 0.4 Mg) 1 tab Q5M PRN SL CHEST PAIN; Start 04/29/17 at 20:00 Acetaminophen (Tylenol Liquid) 650 mg Q6H PRN PO PAIN LEVEL 1-3 OR FEVER; Start 04/29/17 at 20:00 Acetaminophen (Tylenol Tab) 650 mg Q6H PRN PO PAIN LEVEL 1-3 OR FEVER; Start at 20:00 Acetaminophen/ Hydrocodone Bitart ([place] (5/325)) 1 tab Q6H PRN PO PAIN LEVEL 4 -6; Start 04/29/17 at 20:00 Zolpidem Tartrate (Ambien) 5 mg QHS PRN PO INSOMNIA; Start 04/29/17 at 20:00 Docusate Sodium (Colace) 100 mg Q12H PRN PO CONSTIPATION; Start 04/29/17 at 20: 00 Bisacodyl (Dulcolax) 5 mg DAILY PRN PO CONSTIPATION; Start 04/29/17 at 20:00 Aspirin 325 mg 325 mg DAILY PO Last administered on 05/03/17 09:46; Admin Dose 325 MG; Start 04/30/17 at 09:00 Vasopressin 60 unit/Dextrose 60 ml @ 1.2 mls/hr Q12H IV Last administered on 01:07; Admin Dose 2.4 MLS/HR; Start 04/30/17 at 13:00 Fentanyl 100 ml @ 5 mls/hr TITRATE IV Last administered on 05/04/17 03:28; Admin Dose 2 MLS/HR; Start 04/30/17 at 16:00 Phenylephrine HCl 80 mg/Dextrose 250 ml @ 18.75 mls/ hr TITRATE IV Last administered on 05/04/17 09:57; Admin Dose 31.87 MLS/HR; Start 04/30/17 at 18: 00 Norepinephrine/ Dextrose (Levophed/D5W) 250 ml @ 0.46 mls/hr TITRATE IV Last administered on 05/03/17 03:16; Admin Dose 5.15 MLS/HR; Start 04/30/17 at 18:00 Pantoprazole (Protonix Iv) 40 mg BID@06,18 IV Last administered on 05/04/17 17 :52; Admin Dose 40 MG; Start 05/02/17 at 18:00 Diphenhydramine HCl 25 mg 25 mg Q4H PRN IV ITCHING Last administered on 16:41; Admin Dose 25 MG; Start 05/02/17 at 08:30 Cefepime HCl 50 ml @ 100 mls/hr Q24H IVPB Last administered on 05/04/17 11:45 ; Admin Dose 100 MLS/HR; Start 05/02/17 at 11:00 Dobutamine HCl/ Dextrose 250 ml @ 4.755 mls/ hr TITRATE IV Last administered on 05/04/17 12:53; Admin Dose 19.02 MLS/HR; Start 05/03/17 at 09:30 Miscellaneous Information 1 ea NOTE XX ; Start 05/03/17 at 13:00 Glucose (Glutose) 15 gm Q15M PRN PO DECREASED GLUCOSE; Start 05/03/17 at 12:45 Glucose (Glutose) 22.5 gm Q15M PRN PO DECREASED GLUCOSE; Start 05/03/17 at 12: 45 Dextrose (D50w Syringe) 25 ml Q15M PRN IV DECREASED GLUCOSE Last administered on 05/03/17 12:48; Admin Dose 25 ML; Start 05/03/17 at 12:45 Dextrose (D50w Syringe) 50 ml Q15M PRN IV DECREASED GLUCOSE; Start 05/03/17 at 12:46 Glucagon (Glucagen) 1 mg Q15M PRN IM DECREASED GLUCOSE; Start 05/03/17 at 12:46 Glucose 15 gm 15 gm Q15M PRN BUCCAL DECREASED GLUCOSE; Start 05/03/17 at 12:46 Midazolam HCl 50 ml @ 1 mls/hr TITRATE IV Last administered on 05/03/17 15:15 ; Admin Dose 1 MLS/HR; Start 05/03/17 at 15:00 Dextrose/Sodium Chloride 1,000 ml @ 20 mls/hr Q24H IV Last administered on 16:42; Admin Dose 20 MLS/HR; Start 05/03/17 at 16:00 Amiodarone HCl/ Dextrose (Cordarone Iv/ D5W) 500 ml @ 16.66 mls/ hr Q24H IV Last administered on 05/03/17 21:21; Admin Dose 33.3 MLS/HR; Start 05/03/17 at 21:00 Acetaminophen (Tylenol Tab) 650 mg ONCE PO Last administered on 05/04/17 09:10 ; Admin Dose 650 MG; Start 05/04/17 at 09:00; Stop 05/05/17 at 08:59 Methylprednisolone Sodium Succinate (Solu-Medrol) 40 mg Q12 IV Last administered on 05/04/17 21:12; Admin Dose 40 MG; Start 05/04/17 at 09:00 Metoclopramide HCl (Reglan) 5 mg Q6 IV Last administered on 05/04/17 17:52; Admin Dose 5 MG; Start 05/04/17 at 12:00 Nystatin (Nystatin Susp) 5 ml QID PO Last administered on 05/04/17 21:12; Admin Dose 5 ML; Start 05/04/17 at 13:00 KEVIN PICKERING MD May 04, 2017 21:28
[2017-05-04] MEDS ORDERED: ALBUMIN HUMAN 25% 100 ML IV ONE (21:30)
[2017-05-04] MEDS ORDERED: VANCOMYCIN 1 GM (PMX) 250 ML IVPB SCH (21:30)
[2017-05-04] MEDS ORDERED: VANCOMYCIN 1 GM (PMX) 250 ML ONE (21:32)
[2017-05-04] MEDS: MIDAZOLAM (DRIP) 50 mg/50 mL 50 ML IV SCH (22:09)
[2017-05-04] MEDS: AMIODARONE 900 MG in DEXTROSE 5% 482 ML IV SCH (22:29)
[2017-05-05] VITALS (108 sets, daily range): BP systolic 70–127; BP diastolic 43–80; PULSE 67–111; RESP 7–26
[2017-05-05] MEDS: VASOPRESSIN 60 UNIT in DEXTROSE 5% 57 ML IV SCH ×2 (01:00→12:01)
[2017-05-05] MEDS: IPRATROPIUM (HFA) 12.9 GM INHALER INH SCH ×4 (01:41→20:25)
[2017-05-05] MEDS: ALBUTEROL 18 GM INHALER INH SCH ×4 (01:42→20:25)
[2017-05-05] MEDS: DOBUTamine/D5W 2 MG/ML DRIP 250 ML IV SCH ×2 (02:55→16:59)
[2017-05-05] MEDS: NORepinephrine 32 MG in DEXTROSE 5% 218 ML IV SCH (04:13)
[2017-05-05 05:28] LABS: ABNORMAL IP MESSAGE 1; HEMATOCRIT 28.8 % (42.0-52.0); HEMOGLOBIN 9.9 g/dl (14.0-18.0); MEAN CORPUSCULAR HEMOGLOBIN 33.6 pg (29.0-33.0); MEAN CORPUSCULAR HGB CONC 34.4 g/dl (32.0-37.0); MEAN CORPUSCULAR VOLUME 97.6 fl (82.0-101.0); MEAN PLATELET VOLUME 11.6 fl (7.4-10.4); NUCLEATED RED BLOOD CELLS% 0.8 /100WBC (0.0-0.0); POSITIVE DIFF @See below; RED BLOOD COUNT 2.95 10^6/ul (4.70-6.10); RED CELL DISTRIBUTION WIDTH 14.8 % (11.5-14.5); WHITE BLOOD COUNT 18.9 10^3/ul (4.8-10.8)
[2017-05-05 05:52] LABS: INR 1.06; PROTIME 13.8 Sec (12.2-14.2); PT RATIO 1.1
[2017-05-05] MEDS: FENTAnyl (DRIP) 1000 mcg/100mL 100 ML IV SCH (05:58)
[2017-05-05] MEDS: PANTOPRAZOLE 40 MG INJ IV SCH ×2 (06:05→17:01)
[2017-05-05] MEDS: METOCLOPRAMIDE 10 MG INJ IV SCH ×3 (06:05→17:02)
[2017-05-05 06:13] LABS: PLATELET COUNT 36 10^3/UL (140-415)
[2017-05-05 06:21] LABS: ALBUMIN 2.6 g/dl (3.3-4.9); ALBUMIN/GLOBULIN RATIO 0.96; BILIRUBIN,DIRECT 1.3 mg/dl (0.00-0.20); BILIRUBIN,INDIRECT 0.4 mg/dl (0-1.1); BILIRUBIN,TOTAL 1.7 mg/dl (0.2-1.3); CALCIUM 6.8 mg/dl (8.4-10.2); CREATININE 5.82 mg/dl (0.61-1.24); POTASSIUM 4.4 mmol/L (3.5-5.1); TOTAL PROTEIN 5.3 g/dl (6.1-8.1)
[2017-05-05 06:28] LABS: FIBRIN SPLIT PRODUCT >10 and <40 ug/ml (<10)
[2017-05-05 06:48] LABS: PLATELET COUNT 36 10^3/UL (140-440)
[2017-05-05 07:06] LABS: D-DIMER > 10000.00 ng/ml (<460)
[2017-05-05 07:51] LABS: ANISOCYTOSIS 1+ (0-0); ERYTHROBLAST% (NRBC) (M) 2 % (0-0); GIANT THROMBO% (M) 1 % (0-0); HYPOCHROMASIA 2+ (0-0); MONOCYTES % (M) 2 % (0-11); PLATELET ESTIMATE DECREASED; POIKILOCYTOSIS 1+ (0-0); POLYCHROMASIA 2+ (0-0); TOXIC GRANULATION 2+ (0-0)
--- NOTE | 2017-05-05 08:13 | PN ---
Date/Time of Note Date/Time of Note DATE: 05/05/17 TIME: 08:06 Assessment/Plan VTE Prophylaxis VTE Prophylaxis Intervention: contraindicated Lines/Catheters IV Catheter Type (from Nrs): Central Line Central line still needed: Yes Urinary Cath still in place: No Assessment/Plan Chief Complaint/Hosp Course 87 y/o with # s/p V Tachy/V Fib likely secondary to ischemia on Amiodarone and s/p Digoxin # Shock likely Cardiogenic with AMI with Tropinins 150 on 3 pressors> downtrending Troponin to 40>15 likely combination of sepsis with Strep bactermia however repeat bld cx negative. Sputum cx+nelly. 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, now more edematous # Acute on chronic heart failure with EF 30% # Shock liver improving LFTs with improving ischemia # Lactic acidosis # Respiratory failure on Vent # Thrombocytopenia s/p 1 unit platelets likley due to shock liver # Anemia S/P 2 units PRBC # Right arm DVT but cannot be on anticoagulation due to thrombocytopenia Recs - Titrate off pressors, however will need good HD session today for volume removal, titrate pressors - Concentrate all gtts and abx - c/w Amiodarone - c/w cefepime and repeat Bld cx negative so far, c/w Nystatin - Decrease Hydrocortisone to 40 q daily -- On FI02 40% , Vent management per Pulmonary - c/w Hold Heparin due to thrombocytopenia, c/w ASA - Daily Mg levels Problems: Subjective 24 Hr Interval Summary Free Text/Dictation Pt is on 2 gtts currently Dobutamine 10 and levophed 10 , off Phenyepinephrine Input was 2 L last 24 hrs On Fentanyl/versed/amiodarone gtt In sinus rthym RUE U/S +DVT Exam/Review of Systems Vital Signs Vitals Vital Signs Date Time Temp Pulse Resp B/P Pulse Ox O2 Delivery O2 Flow Rate FiO2 05/05/17 06:45 76 16 118/78 98 Mechanical Ventilator 05/05/17 05:00 40 05/05/17 04:00 98.1 Intake and Output 05/04/17 05/04/17 05/05/17 15:00 23:00 07:00 Intake Total 788.92 ml 635.45 ml 608.54 ml Balance 788.92 ml 635.45 ml 608.54 ml Exam eneral:Intubated, sedated NECK: JVD elevated, no thyromegaly, intub Lymph: no lymphadenopathy HEART: regular with no S3, BRANDI LUNGS: Rhonchi heard b/l ABD: soft, NT, ND, +BS Neuro: non focal SKIN: chronic changes EXT: Edema 2+ more on rt>left Results Result Diagram: 05/05/17 0400 05/05/17 0400 Results 24 hrs Laboratory Tests Test 05/04/17 14:33 05/04/17 15:23 05/05/17 04:00 05/05/17 05:27 Bedside Glucose 96 Creatine Kinase 203 H Creatine Kinase Index 1.7 Creatinine Kinase MB (Mass) 3.55 H Troponin I 15.200 *H White Blood Count 18.9 H Red Blood Count 2.95 L Hemoglobin 9.9 L Hematocrit 28.8 L Mean Corpuscular Volume 97.6 Mean Corpuscular Hemoglobin 33.6 H Mean Corpuscular Hemoglobin Concent 34.4 Red Cell Distribution Width 14.8 H Platelet Count 36 L Mean Platelet Volume 11.6 H Neutrophils % Segmented Neutrophils % (Manual) 93 H Band Neutrophils % (Manual) 4 Lymphocytes % Lymphocytes % (Manual) 1 L Monocytes % Monocytes % (Manual) 2 Eosinophils % Basophils % Nucleated Red Blood Cells % 2 H Neutrophils # Neutrophils # (Manual) 17.7 H Band Neutrophils # 0.7 H Absolute Lymphocytes (Manual) 0.1 L Lymphocytes # Monocytes # Absolute Monocytes (Manual) 0.3 Eosinophils # Basophils # Nucleated Red Blood Cells # Toxic Granulation 2+ Platelet Estimate DECREASED Giant Platelets 1 H Polychromasia 2+ Hypochromasia 2+ Poikilocytosis 1+ Anisocytosis 1+ Macrocytosis 1+ Prothrombin Time 13.8 Prothrombin Time Ratio 1.1 INR International Normalized Ratio 1.06 Activated Partial Thromboplast Time 23.0 L Thrombin Time 13.0 L Fibrinogen 364.0 # Plasma Fibrin Degradation Products >10 and <40 H D-Dimer > 11672.00 H D-Dimer Comment Sodium Level 130 L Potassium Level 4.4 Chloride Level 91 L Carbon Dioxide Level 29 Anion Gap 14 Blood Urea Nitrogen 73 H Creatinine 5.82 H Glucose Level 87 Calcium Level 6.8 L Magnesium Level 2.2 Total Bilirubin 1.7 H Direct Bilirubin 1.30 H Indirect Bilirubin 0.4 Aspartate Amino Transf (AST/SGOT) 133 #H Alanine Aminotransferase (ALT/SGPT) 768 H Alkaline Phosphatase 110 Total Protein 5.3 L Albumin 2.6 L Globulin 2.70 Albumin/Globulin Ratio 0.96 Lab Scanned Report BLOOD TRANSFUSION Medications Medications Current Medications Folic Acid (Folic Acid) 1 mg DAILY PO Last administered on 05/04/17 09:50; Admin Dose 1 MG; Start 04/30/17 at 09:00 Ondansetron HCl (Zofran Inj) 4 mg Q6H PRN IV NAUSEA AND/OR VOMITING Last administered on 05/03/17 23:24; Admin Dose 4 MG; Start 04/29/17 at 20:00 Nitroglycerin (Nitroglycerin (Sl Tab) 0.4 Mg) 1 tab Q5M PRN SL CHEST PAIN; Start 04/29/17 at 20:00 Acetaminophen (Tylenol Liquid) 650 mg Q6H PRN PO PAIN LEVEL 1-3 OR FEVER; Start 04/29/17 at 20:00 Acetaminophen (Tylenol Tab) 650 mg Q6H PRN PO PAIN LEVEL 1-3 OR FEVER; Start at 20:00 Acetaminophen/ Hydrocodone Bitart ([place] (5/325)) 1 tab Q6H PRN PO PAIN LEVEL 4 -6; Start 04/29/17 at 20:00 Zolpidem Tartrate (Ambien) 5 mg QHS PRN PO INSOMNIA; Start 04/29/17 at 20:00 Docusate Sodium (Colace) 100 mg Q12H PRN PO CONSTIPATION; Start 04/29/17 at 20: 00 Bisacodyl (Dulcolax) 5 mg DAILY PRN PO CONSTIPATION; Start 04/29/17 at 20:00 Aspirin 325 mg 325 mg DAILY PO Last administered on 05/03/17 09:46; Admin Dose 325 MG; Start 04/30/17 at 09:00 Vasopressin 60 unit/Dextrose 60 ml @ 1.2 mls/hr Q12H IV Last administered on 01:07; Admin Dose 2.4 MLS/HR; Start 04/30/17 at 13:00 Fentanyl 100 ml @ 5 mls/hr TITRATE IV Last administered on 05/05/17 05:58; Admin Dose 4 MLS/HR; Start 04/30/17 at 16:00 Phenylephrine HCl 80 mg/Dextrose 250 ml @ 18.75 mls/ hr TITRATE IV Last administered on 05/04/17 09:57; Admin Dose 31.87 MLS/HR; Start 04/30/17 at 18: 00 Norepinephrine/ Dextrose (Levophed/D5W) 250 ml @ 0.46 mls/hr TITRATE IV Last administered on 05/05/17 04:13; Admin Dose 4.6 MLS/HR; Start 04/30/17 at 18:00 Pantoprazole (Protonix Iv) 40 mg BID@06,18 IV Last administered on 05/05/17 06 :05; Admin Dose 40 MG; Start 05/02/17 at 18:00 Diphenhydramine HCl 25 mg 25 mg Q4H PRN IV ITCHING Last administered on 16:41; Admin Dose 25 MG; Start 05/02/17 at 08:30 Cefepime HCl 50 ml @ 100 mls/hr Q24H IVPB Last administered on 05/04/17 11:45 ; Admin Dose 100 MLS/HR; Start 05/02/17 at 11:00 Dobutamine HCl/ Dextrose 250 ml @ 4.755 mls/ hr TITRATE IV Last administered on 05/05/17 02:55; Admin Dose 19.02 MLS/HR; Start 05/03/17 at 09:30 Miscellaneous Information 1 ea NOTE XX ; Start 05/03/17 at 13:00 Glucose (Glutose) 15 gm Q15M PRN PO DECREASED GLUCOSE; Start 05/03/17 at 12:45 Glucose (Glutose) 22.5 gm Q15M PRN PO DECREASED GLUCOSE; Start 05/03/17 at 12: 45 Dextrose (D50w Syringe) 25 ml Q15M PRN IV DECREASED GLUCOSE Last administered on 05/03/17 12:48; Admin Dose 25 ML; Start 05/03/17 at 12:45 Dextrose (D50w Syringe) 50 ml Q15M PRN IV DECREASED GLUCOSE; Start 05/03/17 at 12:46 Glucagon (Glucagen) 1 mg Q15M PRN IM DECREASED GLUCOSE; Start 05/03/17 at 12:46 Glucose 15 gm 15 gm Q15M PRN BUCCAL DECREASED GLUCOSE; Start 05/03/17 at 12:46 Midazolam HCl 50 ml @ 1 mls/hr TITRATE IV Last administered on 05/04/17 22:09 ; Admin Dose 1 MLS/HR; Start 05/03/17 at 15:00 Dextrose/Sodium Chloride 1,000 ml @ 20 mls/hr Q24H IV Last administered on 16:42; Admin Dose 20 MLS/HR; Start 05/03/17 at 16:00 Amiodarone HCl/ Dextrose (Cordarone Iv/ D5W) 500 ml @ 16.66 mls/ hr Q24H IV Last administered on 05/04/17 22:29; Admin Dose 16.66 MLS/HR; Start 05/03/17 at 21:00 Acetaminophen (Tylenol Tab) 650 mg ONCE PO Last administered on 05/04/17 09:10 ; Admin Dose 650 MG; Start 05/04/17 at 09:00; Stop 05/05/17 at 08:59 Methylprednisolone Sodium Succinate (Solu-Medrol) 40 mg Q12 IV Last administered on 05/04/17 21:12; Admin Dose 40 MG; Start 05/04/17 at 09:00 Metoclopramide HCl (Reglan) 5 mg Q6 IV Last administered on 05/05/17 06:05; Admin Dose 5 MG; Start 05/04/17 at 12:00 Nystatin (Nystatin Susp) 5 ml QID PO Last administered on 05/04/17 21:12; Admin Dose 5 ML; Start 05/04/17 at 13:00 ARNULFO BLEVINS MD May 05, 2017 08:13
[2017-05-05] MEDS: ASPIRIN 325 MG TAB PO SCH ×2 (09:00→09:17)
[2017-05-05] MEDS ORDERED: ALBUMIN HUMAN 25% 100 ML ONE (09:11)
[2017-05-05] MEDS: METHYLPREDNISOLONE 40 MG INJ IV SCH (09:17)
[2017-05-05] MEDS: FOLIC ACID 1 MG TAB PO SCH (09:17)
[2017-05-05] MEDS: NYSTATIN SUSP 5 ML CUP PO SCH ×4 (09:17→21:26)
--- NOTE | 2017-05-05 11:14 | CONS ---
Date/Time of Note Date/Time of Note DATE: 05/05/17 TIME: 11:11 Consult Date/Type/Reason Admit Date/Time Apr 29, 2017 at 19:31 Initial Consult Date 05/02/17 Type of Consultation: Pulm Ordering Provider: YENNY WINSTON MD Subjective Remains intubated sedated on mechanical ventilation. Continues vasopressor support. Objective Vital Signs Date Time Temp Pulse Resp B/P Pulse Ox O2 Delivery O2 Flow Rate FiO2 05/05/17 10:45 88 15 101/47 100 Mechanical Ventilator 05/05/17 07:00 98.1 05/05/17 05:00 40 Intake and Output 05/04/17 05/04/17 05/05/17 15:00 23:00 07:00 Intake Total 788.92 ml 635.45 ml 608.54 ml Balance 788.92 ml 635.45 ml 608.54 ml Exam HEENT orally intubated dry mucous membranes. Cardiac: S1-S2 3/6 systolic ejection murmur Respiratory: Diminished air entry bilaterally with rales Abdomen: Soft nontender no guarding or rebound Extremities: No cyanosis clubbing 1+ edema Neuro: Unable to assess at present Results/Medications Result Diagram: 05/05/17 0400 05/05/17 0400 Results 24 hrs Laboratory Tests Test 05/04/17 14:33 05/04/17 15:23 05/05/17 04:00 05/05/17 05:27 Bedside Glucose 96 Creatine Kinase 203 H Creatine Kinase Index 1.7 Creatinine Kinase MB (Mass) 3.55 H Troponin I 15.200 *H White Blood Count 18.9 H Red Blood Count 2.95 L Hemoglobin 9.9 L Hematocrit 28.8 L Mean Corpuscular Volume 97.6 Mean Corpuscular Hemoglobin 33.6 H Mean Corpuscular Hemoglobin Concent 34.4 Red Cell Distribution Width 14.8 H Platelet Count 36 L Mean Platelet Volume 11.6 H Neutrophils % Segmented Neutrophils % (Manual) 93 H Band Neutrophils % (Manual) 4 Lymphocytes % Lymphocytes % (Manual) 1 L Monocytes % Monocytes % (Manual) 2 Eosinophils % Basophils % Nucleated Red Blood Cells % 2 H Neutrophils # Neutrophils # (Manual) 17.7 H Band Neutrophils # 0.7 H Absolute Lymphocytes (Manual) 0.1 L Lymphocytes # Monocytes # Absolute Monocytes (Manual) 0.3 Eosinophils # Basophils # Nucleated Red Blood Cells # Toxic Granulation 2+ Platelet Estimate DECREASED Giant Platelets 1 H Polychromasia 2+ Hypochromasia 2+ Poikilocytosis 1+ Anisocytosis 1+ Macrocytosis 1+ Prothrombin Time 13.8 Prothrombin Time Ratio 1.1 INR International Normalized Ratio 1.06 Activated Partial Thromboplast Time 23.0 L Thrombin Time 13.0 L Fibrinogen 364.0 # Plasma Fibrin Degradation Products >10 and <40 H D-Dimer > 17206.00 H D-Dimer Comment Sodium Level 130 L Potassium Level 4.4 Chloride Level 91 L Carbon Dioxide Level 29 Anion Gap 14 Blood Urea Nitrogen 73 H Creatinine 5.82 H Glucose Level 87 Calcium Level 6.8 L Magnesium Level 2.2 Total Bilirubin 1.7 H Direct Bilirubin 1.30 H Indirect Bilirubin 0.4 Aspartate Amino Transf (AST/SGOT) 133 #H Alanine Aminotransferase (ALT/SGPT) 768 H Alkaline Phosphatase 110 Total Protein 5.3 L Albumin 2.6 L Globulin 2.70 Albumin/Globulin Ratio 0.96 Lab Scanned Report BLOOD TRANSFUSION Medications Current Medications Folic Acid (Folic Acid) 1 mg DAILY PO Last administered on 05/05/17 09:17; Admin Dose 1 MG; Start 04/30/17 at 09:00 Ondansetron HCl (Zofran Inj) 4 mg Q6H PRN IV NAUSEA AND/OR VOMITING Last administered on 05/03/17 23:24; Admin Dose 4 MG; Start 04/29/17 at 20:00 Nitroglycerin (Nitroglycerin (Sl Tab) 0.4 Mg) 1 tab Q5M PRN SL CHEST PAIN; Start 04/29/17 at 20:00 Acetaminophen (Tylenol Liquid) 650 mg Q6H PRN PO PAIN LEVEL 1-3 OR FEVER; Start 04/29/17 at 20:00 Acetaminophen (Tylenol Tab) 650 mg Q6H PRN PO PAIN LEVEL 1-3 OR FEVER; Start at 20:00 Acetaminophen/ Hydrocodone Bitart ([place] (5/325)) 1 tab Q6H PRN PO PAIN LEVEL 4 -6; Start 04/29/17 at 20:00 Zolpidem Tartrate (Ambien) 5 mg QHS PRN PO INSOMNIA; Start 04/29/17 at 20:00 Docusate Sodium (Colace) 100 mg Q12H PRN PO CONSTIPATION; Start 04/29/17 at 20: 00 Bisacodyl (Dulcolax) 5 mg DAILY PRN PO CONSTIPATION; Start 04/29/17 at 20:00 Aspirin 325 mg 325 mg DAILY PO Last administered on 05/05/17 09:17; Admin Dose 325 MG; Start 04/30/17 at 09:00 Vasopressin 60 unit/Dextrose 60 ml @ 1.2 mls/hr Q12H IV Last administered on 01:07; Admin Dose 2.4 MLS/HR; Start 04/30/17 at 13:00 Fentanyl 100 ml @ 5 mls/hr TITRATE IV Last administered on 05/05/17 05:58; Admin Dose 4 MLS/HR; Start 04/30/17 at 16:00 Phenylephrine HCl 80 mg/Dextrose 250 ml @ 18.75 mls/ hr TITRATE IV Last administered on 05/04/17 09:57; Admin Dose 31.87 MLS/HR; Start 04/30/17 at 18: 00 Norepinephrine/ Dextrose (Levophed/D5W) 250 ml @ 0.46 mls/hr TITRATE IV Last administered on 05/05/17 04:13; Admin Dose 4.6 MLS/HR; Start 04/30/17 at 18:00 Pantoprazole (Protonix Iv) 40 mg BID@06,18 IV Last administered on 05/05/17 06 :05; Admin Dose 40 MG; Start 05/02/17 at 18:00 Diphenhydramine HCl 25 mg 25 mg Q4H PRN IV ITCHING Last administered on 16:41; Admin Dose 25 MG; Start 05/02/17 at 08:30 Cefepime HCl 50 ml @ 100 mls/hr Q24H IVPB Last administered on 05/04/17 11:45 ; Admin Dose 100 MLS/HR; Start 05/02/17 at 11:00 Dobutamine HCl/ Dextrose 250 ml @ 4.755 mls/ hr TITRATE IV Last administered on 05/05/17 02:55; Admin Dose 19.02 MLS/HR; Start 05/03/17 at 09:30 Miscellaneous Information 1 ea NOTE XX ; Start 05/03/17 at 13:00 Glucose (Glutose) 15 gm Q15M PRN PO DECREASED GLUCOSE; Start 05/03/17 at 12:45 Glucose (Glutose) 22.5 gm Q15M PRN PO DECREASED GLUCOSE; Start 05/03/17 at 12: 45 Dextrose (D50w Syringe) 25 ml Q15M PRN IV DECREASED GLUCOSE Last administered on 05/03/17 12:48; Admin Dose 25 ML; Start 05/03/17 at 12:45 Dextrose (D50w Syringe) 50 ml Q15M PRN IV DECREASED GLUCOSE; Start 05/03/17 at 12:46 Glucagon (Glucagen) 1 mg Q15M PRN IM DECREASED GLUCOSE; Start 05/03/17 at 12:46 Glucose 15 gm 15 gm Q15M PRN BUCCAL DECREASED GLUCOSE; Start 05/03/17 at 12:46 Midazolam HCl 50 ml @ 1 mls/hr TITRATE IV Last administered on 05/04/17 22:09 ; Admin Dose 1 MLS/HR; Start 05/03/17 at 15:00 Dextrose/Sodium Chloride 1,000 ml @ 20 mls/hr Q24H IV Last administered on 16:42; Admin Dose 20 MLS/HR; Start 05/03/17 at 16:00 Amiodarone HCl/ Dextrose (Cordarone Iv/ D5W) 500 ml @ 16.66 mls/ hr Q24H IV Last administered on 05/04/17 22:29; Admin Dose 16.66 MLS/HR; Start 05/03/17 at 21:00 Metoclopramide HCl (Reglan) 5 mg Q6 IV Last administered on 05/05/17 06:05; Admin Dose 5 MG; Start 05/04/17 at 12:00 Nystatin (Nystatin Susp) 5 ml QID PO Last administered on 05/05/17 09:17; Admin Dose 5 ML; Start 05/04/17 at 13:00 Methylprednisolone Sodium Succinate (Solu-Medrol) 40 mg DAILY IV Last administered on 05/05/17 09:17; Admin Dose 40 MG; Start 05/05/17 at 09:00 Assessment/Plan Chief Complaint/Hosp Course Assessment 1. Hypoxemic respiratory failure on mechanical ventilation 2. Multiorgan failure with septic shock 3. Recent upper GI bleed. 4. Persistent leukocytosis 5. 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 End-stage renal failure on hemodialysis Plan 1. Continue broad-spectrum antibiotics 2. Continue hemodialysis as tolerated 3. Continue mechanical ventilation 4. Start tube feeding 5. DVT and GI prophylaxis Overall prognosis very poor. Problems: JIN SANTANA MD, [facility] May 05, 2017 11:14
[2017-05-05] MEDS: CEFEPIME 1GM/50 ML (PMX) 50 ML IVPB SCH (11:46)
--- NOTE | 2017-05-05 11:47 | CONS ---
Date/Time of Note Date/Time of Note DATE: 05/05/17 TIME: 11:42 Assessment/Plan Assessment/Plan Chief Complaint/Hosp Course IMP: 1.Acute MA-now downtrending cardiac enzymes without signs of ongoing myocardial necrosis 2.Hypotension-on 2 pressors and 1 inotrope 3.VT-now in SR 4.resp failure s/p intubation 5.renal failure-on HD 6. Leukocytosis 7. Thrombocytopenia 8. Shock liver 9. CHF-systolic acute on chronic likely with EF 20% by echo this admit Recc: -ICU monitoring -Continue to slowly wean pressors now that patient is off bárbara and will slowly decrsae doses of dobutamine and levo as possible -Continue inotropic therapy for now but izabel decrase dose given incraesed ectopy and if has recurrent VT can consider change to milrinone -Contineu to trend cardiac enzymes -Follow platelet count with intermittent holding of asa to prevent further bleeding complication -Heparin ion hold given low platelets -Continue AMIO IV for now -appreciate EP input -Will consider LHC when improved hemodynamics and blood cell indices/platelet count -F/U cx data and continue abx's -HD for volume removal as tolerated -transfuse platelets as necessary Problems: Consultation Date/Type/Reason Admit Date/Time Apr 29, 2017 at 19:31 Initial Consult Date 05/02/17 Type of Consultation: cardiology Reason for Consultation NStemi/shock Referring Provider: YENNY WINSTON MD Exam/Review of Systems Vital Signs Vitals Vital Signs Date Time Temp Pulse Resp B/P Pulse Ox O2 Delivery O2 Flow Rate FiO2 05/05/17 10:45 88 15 101/47 100 Mechanical Ventilator 05/05/17 08:00 40 05/05/17 07:00 98.1 Intake and Output 05/04/17 05/04/17 05/05/17 15:00 23:00 07:00 Intake Total 788.92 ml 635.45 ml 673.84 ml Balance 788.92 ml 635.45 ml 673.84 ml Exam Review of Systems: CONSTITUTIONAL: No fevers, chills. PULMONARY: intubated CARDIOVASCULAR: No chest pain/palpitations GASTROINTESTINAL: No nausea/vomiting. GENITOURINARY: No hematuria/dysuria. MUSCULOSKELETAL: No myagias/arthalgias. PSYCHIATRIC: The patient denies depression. NEUROLOGIC:sedated Constitutional: other (sedated) Head: normocephalic ENMT: intubated, mucosa pink and moist Neck: jvd, supple Respiratory: diminished breath sounds Cardiovascular: regular rate and rhythm Gastrointestinal: non-tender, soft Musculoskeletal: muscle weakness (generalized weakness) Extremities: pitting pedal edema (Bilateral) Neurological: other (sedated) Results Result Diagram: 05/05/17 0400 05/05/17 0400 Results 24 hrs Laboratory Tests Test 05/04/17 14:33 05/04/17 15:23 05/05/17 04:00 05/05/17 05:27 Bedside Glucose 96 Creatine Kinase 203 H Creatine Kinase Index 1.7 Creatinine Kinase MB (Mass) 3.55 H Troponin I 15.200 *H White Blood Count 18.9 H Red Blood Count 2.95 L Hemoglobin 9.9 L Hematocrit 28.8 L Mean Corpuscular Volume 97.6 Mean Corpuscular Hemoglobin 33.6 H Mean Corpuscular Hemoglobin Concent 34.4 Red Cell Distribution Width 14.8 H Platelet Count 36 L Mean Platelet Volume 11.6 H Neutrophils % Segmented Neutrophils % (Manual) 93 H Band Neutrophils % (Manual) 4 Lymphocytes % Lymphocytes % (Manual) 1 L Monocytes % Monocytes % (Manual) 2 Eosinophils % Basophils % Nucleated Red Blood Cells % 2 H Neutrophils # Neutrophils # (Manual) 17.7 H Band Neutrophils # 0.7 H Absolute Lymphocytes (Manual) 0.1 L Lymphocytes # Monocytes # Absolute Monocytes (Manual) 0.3 Eosinophils # Basophils # Nucleated Red Blood Cells # Toxic Granulation 2+ Platelet Estimate DECREASED Giant Platelets 1 H Polychromasia 2+ Hypochromasia 2+ Poikilocytosis 1+ Anisocytosis 1+ Macrocytosis 1+ Prothrombin Time 13.8 Prothrombin Time Ratio 1.1 INR International Normalized Ratio 1.06 Activated Partial Thromboplast Time 23.0 L Thrombin Time 13.0 L Fibrinogen 364.0 # Plasma Fibrin Degradation Products >10 and <40 H D-Dimer > 67435.00 H D-Dimer Comment Sodium Level 130 L Potassium Level 4.4 Chloride Level 91 L Carbon Dioxide Level 29 Anion Gap 14 Blood Urea Nitrogen 73 H Creatinine 5.82 H Glucose Level 87 Calcium Level 6.8 L Magnesium Level 2.2 Total Bilirubin 1.7 H Direct Bilirubin 1.30 H Indirect Bilirubin 0.4 Aspartate Amino Transf (AST/SGOT) 133 #H Alanine Aminotransferase (ALT/SGPT) 768 H Alkaline Phosphatase 110 Total Protein 5.3 L Albumin 2.6 L Globulin 2.70 Albumin/Globulin Ratio 0.96 Lab Scanned Report BLOOD TRANSFUSION Medications Medications Current Medications Folic Acid (Folic Acid) 1 mg DAILY PO Last administered on 05/05/17 09:17; Admin Dose 1 MG; Start 04/30/17 at 09:00 Ondansetron HCl (Zofran Inj) 4 mg Q6H PRN IV NAUSEA AND/OR VOMITING Last administered on 05/03/17 23:24; Admin Dose 4 MG; Start 04/29/17 at 20:00 Nitroglycerin (Nitroglycerin (Sl Tab) 0.4 Mg) 1 tab Q5M PRN SL CHEST PAIN; Start 04/29/17 at 20:00 Acetaminophen (Tylenol Liquid) 650 mg Q6H PRN PO PAIN LEVEL 1-3 OR FEVER; Start 04/29/17 at 20:00 Acetaminophen (Tylenol Tab) 650 mg Q6H PRN PO PAIN LEVEL 1-3 OR FEVER; Start at 20:00 Acetaminophen/ Hydrocodone Bitart ([place] (5/325)) 1 tab Q6H PRN PO PAIN LEVEL 4 -6; Start 04/29/17 at 20:00 Zolpidem Tartrate (Ambien) 5 mg QHS PRN PO INSOMNIA; Start 04/29/17 at 20:00 Docusate Sodium (Colace) 100 mg Q12H PRN PO CONSTIPATION; Start 04/29/17 at 20: 00 Bisacodyl (Dulcolax) 5 mg DAILY PRN PO CONSTIPATION; Start 04/29/17 at 20:00 Aspirin 325 mg 325 mg DAILY PO Last administered on 05/05/17 09:17; Admin Dose 325 MG; Start 04/30/17 at 09:00 Vasopressin 60 unit/Dextrose 60 ml @ 1.2 mls/hr Q12H IV Last administered on 01:07; Admin Dose 2.4 MLS/HR; Start 04/30/17 at 13:00 Fentanyl 100 ml @ 5 mls/hr TITRATE IV Last administered on 05/05/17 05:58; Admin Dose 4 MLS/HR; Start 04/30/17 at 16:00 Phenylephrine HCl 80 mg/Dextrose 250 ml @ 18.75 mls/ hr TITRATE IV Last administered on 05/04/17 09:57; Admin Dose 31.87 MLS/HR; Start 04/30/17 at 18: 00 Norepinephrine/ Dextrose (Levophed/D5W) 250 ml @ 0.46 mls/hr TITRATE IV Last administered on 05/05/17 04:13; Admin Dose 4.6 MLS/HR; Start 04/30/17 at 18:00 Pantoprazole (Protonix Iv) 40 mg BID@06,18 IV Last administered on 05/05/17 06 :05; Admin Dose 40 MG; Start 05/02/17 at 18:00 Diphenhydramine HCl 25 mg 25 mg Q4H PRN IV ITCHING Last administered on 16:41; Admin Dose 25 MG; Start 05/02/17 at 08:30 Cefepime HCl 50 ml @ 100 mls/hr Q24H IVPB Last administered on 05/04/17 11:45 ; Admin Dose 100 MLS/HR; Start 05/02/17 at 11:00 Dobutamine HCl/ Dextrose 250 ml @ 4.755 mls/ hr TITRATE IV Last administered on 05/05/17 02:55; Admin Dose 19.02 MLS/HR; Start 05/03/17 at 09:30 Miscellaneous Information 1 ea NOTE XX ; Start 05/03/17 at 13:00 Glucose (Glutose) 15 gm Q15M PRN PO DECREASED GLUCOSE; Start 05/03/17 at 12:45 Glucose (Glutose) 22.5 gm Q15M PRN PO DECREASED GLUCOSE; Start 05/03/17 at 12: 45 Dextrose (D50w Syringe) 25 ml Q15M PRN IV DECREASED GLUCOSE Last administered on 05/03/17 12:48; Admin Dose 25 ML; Start 05/03/17 at 12:45 Dextrose (D50w Syringe) 50 ml Q15M PRN IV DECREASED GLUCOSE; Start 05/03/17 at 12:46 Glucagon (Glucagen) 1 mg Q15M PRN IM DECREASED GLUCOSE; Start 05/03/17 at 12:46 Glucose 15 gm 15 gm Q15M PRN BUCCAL DECREASED GLUCOSE; Start 05/03/17 at 12:46 Midazolam HCl 50 ml @ 1 mls/hr TITRATE IV Last administered on 05/04/17 22:09 ; Admin Dose 1 MLS/HR; Start 05/03/17 at 15:00 Dextrose/Sodium Chloride 1,000 ml @ 20 mls/hr Q24H IV Last administered on 16:42; Admin Dose 20 MLS/HR; Start 05/03/17 at 16:00 Amiodarone HCl/ Dextrose (Cordarone Iv/ D5W) 500 ml @ 16.66 mls/ hr Q24H IV Last administered on 05/04/17 22:29; Admin Dose 16.66 MLS/HR; Start 05/03/17 at 21:00 Metoclopramide HCl (Reglan) 5 mg Q6 IV Last administered on 05/05/17 06:05; Admin Dose 5 MG; Start 05/04/17 at 12:00 Nystatin (Nystatin Susp) 5 ml QID PO Last administered on 05/05/17 09:17; Admin Dose 5 ML; Start 05/04/17 at 13:00 Methylprednisolone Sodium Succinate (Solu-Medrol) 40 mg DAILY IV Last administered on 05/05/17 09:17; Admin Dose 40 MG; Start 05/05/17 at 09:00 MARCO KENNEDY May 05, 2017 11:47
[2017-05-05] MEDS ORDERED: DOBUTAMINE ONE (15:58)
[2017-05-05] MEDS ORDERED: D5W ONE (15:58)
[2017-05-05] MEDS: DEXTROSE 5%-0.9% NACL 1,000 ML IV SCH (16:06)
--- NOTE | 2017-05-05 16:12 | PN ---
DATE: 05/05/2017 SUBJECTIVE DATA: No acute changes. Patient remains on Levophed and dobutamine drip. He is in no distress and afebrile. LABORATORY AND DIAGNOSTIC DATA: WBC 18.9, H and H 9.1 and 28.8, platelets 36; neutrophils 17.7. Sodium 130. Troponin 15,200. MICROBIOLOGY: Blood culture on admission grew alpha hemolytic strep species. Repeat blood cultures negative. Sputum culture growing Tala albicans. ANTIMICROBIALS: Patient is on IV vancomycin and cefepime. INDWELLING: Endotracheal tube, NG tube, left upper extremity AV fistula, right femoral triple lumen catheter. OBJECTIVE DATA: VITAL SIGNS: Temperature 98.1, pulse 88, respirations 15, blood pressure 101/47, saturation 100 on vent. GENERAL: This is a chronically ill-appearing, fragile, elderly man who is in no distress. HEENT: Head atraumatic, normocephalic. Sclerae anicteric. Buccal mucosa dry. NECK: Supple. Trachea midline. CHEST: Rise symmetrical. Breath sounds diminished at the bases. HEART: S1, S2. ABDOMEN: Soft, bowel sounds present. EXTREMITIES: With mild edema, cyanotic, mottled. ASSESSMENT: 1. Severe sepsis . 2. Shock, cardiogenic and septic. 3. Streptococcal bacteremia on admission. 4. Possible aspiration pneumonia. 5. Acute respiratory failure, intubated. 6. Distended gallbladder with cholelithiasis and thickened gallbladder wall and significant transaminitis, tracing down. 7. Non ST-elevation myocardial infarction. 8. Arrhythmia. 9. History of coronary artery bypass grafting. 10. End-stage renal disease, on hemodialysis. PLAN: The patient remains hemodynamically unstable. He is being seen by multiple consultants. He is still on vasopressor support. He is also getting steroids. We will continue him on current antibiotics. Dictated By: Chelly Hudson NP /valarie/linda /Document#: [id number] MTDD
--- NOTE | 2017-05-05 19:57 | CONS ---
Date/Time of Note Date/Time of Note DATE: 05/05/17 TIME: 19:53 Assessment/Plan Assessment/Plan Chief Complaint/Hosp Course #Thrombocytopenia -this is secondary to shock liver as evidenced by the markedly elevated AST/ALT (>7000/5000). Liver enzymes have greatly improved -no evidence of hemolytic anemia -will continue to check daily DIC panel and transfuse 1 unit cryo if fibrinogen is < 150. fibrinogen is currently > 300 -would hold anticoagulation until platelet count is > 50K -platelet transfusion not needed today as patient is not actively bleeding #Anemia -2/2 shock, sepsis and questionable bleed -s/p 2 units of PRBCs given yesterday #Cardiogenic shock with shock liver -management per cardiology -patient currently on pressors and ionotropic support #ESRD wit acidosis -pt now on Bicarb -continue HD as tolerated. currently blood pressure is very labile #Respiratory failure -currently intubated -cont management per pulmonary Problems: Consultation Date/Type/Reason Admit Date/Time Apr 29, 2017 at 19:31 Initial Consult Date 05/02/17 Type of Consultation: Hematology Reason for Consultation thrombocytopenia Referring Provider: YENNY WINSTON MD 24 HR Interval Summary Free Text/Dictation pt requiring less pressor support. remains on dobutamine. patient received HD this morning with ultrafiltration Exam/Review of Systems Vital Signs Vitals Vital Signs Date Time Temp Pulse Resp B/P Pulse Ox O2 Delivery O2 Flow Rate FiO2 05/05/17 19:00 81 15 102/57 98 Mechanical Ventilator 05/05/17 16:00 98.0 05/05/17 08:00 40 Intake and Output 05/04/17 05/04/17 05/05/17 15:00 23:00 07:00 Intake Total 788.92 ml 635.45 ml 673.84 ml Output Total 0 ml Balance 788.92 ml 635.45 ml 673.84 ml Exam Head: normocephalic ENMT: intubated, nl external ears & nose Neck: non-tender, supple Respiratory: clear to auscultation Cardiovascular: regular rate and rhythm Gastrointestinal: soft Musculoskeletal: nl extremities to inspection Results Result Diagram: 05/05/17 0400 05/05/17 0400 Results 24 hrs Laboratory Tests Test 05/05/17 04:00 05/05/17 05:27 White Blood Count 18.9 H Red Blood Count 2.95 L Hemoglobin 9.9 L Hematocrit 28.8 L Mean Corpuscular Volume 97.6 Mean Corpuscular Hemoglobin 33.6 H Mean Corpuscular Hemoglobin Concent 34.4 Red Cell Distribution Width 14.8 H Platelet Count 36 L Mean Platelet Volume 11.6 H Neutrophils % Segmented Neutrophils % (Manual) 93 H Band Neutrophils % (Manual) 4 Lymphocytes % Lymphocytes % (Manual) 1 L Monocytes % Monocytes % (Manual) 2 Eosinophils % Basophils % Nucleated Red Blood Cells % 2 H Neutrophils # Neutrophils # (Manual) 17.7 H Band Neutrophils # 0.7 H Absolute Lymphocytes (Manual) 0.1 L Lymphocytes # Monocytes # Absolute Monocytes (Manual) 0.3 Eosinophils # Basophils # Nucleated Red Blood Cells # Toxic Granulation 2+ Platelet Estimate DECREASED Giant Platelets 1 H Polychromasia 2+ Hypochromasia 2+ Poikilocytosis 1+ Anisocytosis 1+ Macrocytosis 1+ Prothrombin Time 13.8 Prothrombin Time Ratio 1.1 INR International Normalized Ratio 1.06 Activated Partial Thromboplast Time 23.0 L Thrombin Time 13.0 L Fibrinogen 364.0 # Plasma Fibrin Degradation Products >10 and <40 H D-Dimer > 20050.00 H D-Dimer Comment Sodium Level 130 L Potassium Level 4.4 Chloride Level 91 L Carbon Dioxide Level 29 Anion Gap 14 Blood Urea Nitrogen 73 H Creatinine 5.82 H Glucose Level 87 Calcium Level 6.8 L Magnesium Level 2.2 Total Bilirubin 1.7 H Direct Bilirubin 1.30 H Indirect Bilirubin 0.4 Aspartate Amino Transf (AST/SGOT) 133 #H Alanine Aminotransferase (ALT/SGPT) 768 H Alkaline Phosphatase 110 Total Protein 5.3 L Albumin 2.6 L Globulin 2.70 Albumin/Globulin Ratio 0.96 Lab Scanned Report BLOOD TRANSFUSION Medications Medications Current Medications Folic Acid (Folic Acid) 1 mg DAILY PO Last administered on 05/05/17 09:17; Admin Dose 1 MG; Start 04/30/17 at 09:00 Ondansetron HCl (Zofran Inj) 4 mg Q6H PRN IV NAUSEA AND/OR VOMITING Last administered on 05/03/17 23:24; Admin Dose 4 MG; Start 04/29/17 at 20:00 Nitroglycerin (Nitroglycerin (Sl Tab) 0.4 Mg) 1 tab Q5M PRN SL CHEST PAIN; Start 04/29/17 at 20:00 Acetaminophen (Tylenol Liquid) 650 mg Q6H PRN PO PAIN LEVEL 1-3 OR FEVER; Start 04/29/17 at 20:00 Acetaminophen (Tylenol Tab) 650 mg Q6H PRN PO PAIN LEVEL 1-3 OR FEVER; Start at 20:00 Acetaminophen/ Hydrocodone Bitart ([place] (5/325)) 1 tab Q6H PRN PO PAIN LEVEL 4 -6; Start 04/29/17 at 20:00 Zolpidem Tartrate (Ambien) 5 mg QHS PRN PO INSOMNIA; Start 04/29/17 at 20:00 Docusate Sodium (Colace) 100 mg Q12H PRN PO CONSTIPATION; Start 04/29/17 at 20: 00 Bisacodyl (Dulcolax) 5 mg DAILY PRN PO CONSTIPATION; Start 04/29/17 at 20:00 Aspirin 325 mg 325 mg DAILY PO Last administered on 05/03/17 09:46; Admin Dose 325 MG; Start 04/30/17 at 09:00 Vasopressin 60 unit/Dextrose 60 ml @ 1.2 mls/hr Q12H IV Last administered on 01:07; Admin Dose 2.4 MLS/HR; Start 04/30/17 at 13:00 Fentanyl 100 ml @ 5 mls/hr TITRATE IV Last administered on 05/05/17 05:58; Admin Dose 4 MLS/HR; Start 04/30/17 at 16:00 Phenylephrine HCl 80 mg/Dextrose 250 ml @ 18.75 mls/ hr TITRATE IV Last administered on 05/04/17 09:57; Admin Dose 31.87 MLS/HR; Start 04/30/17 at 18: 00 Norepinephrine/ Dextrose (Levophed/D5W) 250 ml @ 0.46 mls/hr TITRATE IV Last administered on 05/05/17 04:13; Admin Dose 4.6 MLS/HR; Start 04/30/17 at 18:00 Pantoprazole (Protonix Iv) 40 mg BID@06,18 IV Last administered on 05/05/17 17 :01; Admin Dose 40 MG; Start 05/02/17 at 18:00 Diphenhydramine HCl 25 mg 25 mg Q4H PRN IV ITCHING Last administered on 9/19/ 17at 16:41; Admin Dose 25 MG; Start 05/02/17 at 08:30 Cefepime HCl 50 ml @ 100 mls/hr Q24H IVPB Last administered on 05/05/17 11:46 ; Admin Dose 100 MLS/HR; Start 05/02/17 at 11:00 Dobutamine HCl/ Dextrose 250 ml @ 4.755 mls/ hr TITRATE IV Last administered on 05/05/17 16:59; Admin Dose 19.02 MLS/HR; Start 05/03/17 at 09:30 Miscellaneous Information 1 ea NOTE XX ; Start 05/03/17 at 13:00 Glucose (Glutose) 15 gm Q15M PRN PO DECREASED GLUCOSE; Start 05/03/17 at 12:45 Glucose (Glutose) 22.5 gm Q15M PRN PO DECREASED GLUCOSE; Start 05/03/17 at 12: 45 Dextrose (D50w Syringe) 25 ml Q15M PRN IV DECREASED GLUCOSE Last administered on 05/03/17 12:48; Admin Dose 25 ML; Start 05/03/17 at 12:45 Dextrose (D50w Syringe) 50 ml Q15M PRN IV DECREASED GLUCOSE; Start 05/03/17 at 12:46 Glucagon (Glucagen) 1 mg Q15M PRN IM DECREASED GLUCOSE; Start 05/03/17 at 12:46 Glucose 15 gm 15 gm Q15M PRN BUCCAL DECREASED GLUCOSE; Start 05/03/17 at 12:46 Midazolam HCl 50 ml @ 1 mls/hr TITRATE IV Last administered on 05/04/17 22:09 ; Admin Dose 1 MLS/HR; Start 05/03/17 at 15:00 Dextrose/Sodium Chloride 1,000 ml @ 20 mls/hr Q24H IV Last administered on 16:06; Admin Dose 20 MLS/HR; Start 05/03/17 at 16:00 Amiodarone HCl/ Dextrose (Cordarone Iv/ D5W) 500 ml @ 16.66 mls/ hr Q24H IV Last administered on 05/04/17 22:29; Admin Dose 16.66 MLS/HR; Start 05/03/17 at 21:00 Metoclopramide HCl (Reglan) 5 mg Q6 IV Last administered on 05/05/17 17:02; Admin Dose 5 MG; Start 05/04/17 at 12:00 Nystatin (Nystatin Susp) 5 ml QID PO Last administered on 05/05/17 16:58; Admin Dose 5 ML; Start 05/04/17 at 13:00 Methylprednisolone Sodium Succinate (Solu-Medrol) 40 mg DAILY IV Last administered on 05/05/17 09:17; Admin Dose 40 MG; Start 05/05/17 at 09:00 JEFF HANSON M.D. May 05, 2017 19:57
--- NOTE | 2017-05-05 20:00 | CONS ---
Date/Time of Note Date/Time of Note DATE: 05/05/17 TIME: 19:58 Assessment/Plan Assessment/Plan Chief Complaint/Hosp Course This is a 87 y/o male with pmh of HTN, HLD, RF on HD, CAD and CABG x 20 yrs ago (1997) Presented to the hospital with VT at a rate of 220 bpm, with a RBBB and inferior axis. The pt required a shock and was sent to the ICU. Per lab notes, Trop was 30 on the day of admission. The pt later in the ICU, required to be intubated. The Echo was done yesterday, the pt has an EF of 30% with mild AI and Mild MR per surface lay out technician. The ECG did not reveal ST elevation. The family wants everything to be done. He is now on 4 pressors, Levophed, vasopressin, Sean and Dobutamine. The pt is now receiving HD and the BP is 86 systolic. He is on 100% FIO2. 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 05/02/2017 The patient is improving with the LFTs decreasing, the Trop trending down, the FIO2 is now at 50% instead of 100%, He is on 3 pressors and will wean off the pressors again. 05/03/2017 The pt is still on 3 pressors He is using less FIO2 at 40 % The pt will need an A line, attempted it, but could not pass the small wire. Will need kit from the medical laboratory technical officer tomorrow the pt will need to start on Amiodarone drip for HR control and on Digoxin 0.5 mg IV x 1 only the pt will also then need to be slowly weaned off of the pressors. will check ABG in AM. 05/04/2017 the pt is in SR, at 77 bpm.The Amiodarone should be continued for now. No more VT or PVCs either The pt is now on two pressors and on 40 % FiO2 Has a right arm DVT and IJ thrombus Cannot be on Heparin because of thrombocythopenia and requiring platelt transfusion The pt will cont the med tx and hopefuly may be able to able to reduce to one pressor soon. 05/05/2017 The pt is slowly improving Once the pt is off of the drips, he may then be extubated The pt will also need a cath once stable. Will cont the Amiodarone for now and will follow up The nurse will try to titrate off the levophed. Problems: Consultation Date/Type/Reason Admit Date/Time Apr 29, 2017 at 19:31 Initial Consult Date 05/02/17 Type of Consultation: Hematology Referring Provider: YENNY WINSTON MD 24 HR Interval Summary Free Text/Dictation The pt is on less levophed and still on dobutamine at 10 mcgs. The pt is responding but now on fentanyl Exam/Review of Systems Vital Signs Vitals Vital Signs Date Time Temp Pulse Resp B/P Pulse Ox O2 Delivery O2 Flow Rate FiO2 05/05/17 19:00 81 15 102/57 98 Mechanical Ventilator 05/05/17 17:11 40 05/05/17 16:00 98.0 Intake and Output 05/04/17 05/04/17 05/05/17 15:00 23:00 07:00 Intake Total 788.92 ml 635.45 ml 673.84 ml Output Total 0 ml Balance 788.92 ml 635.45 ml 673.84 ml Results Result Diagram: 05/05/17 0400 05/05/17 0400 Results 24 hrs Laboratory Tests Test 05/05/17 04:00 05/05/17 05:27 White Blood Count 18.9 H Red Blood Count 2.95 L Hemoglobin 9.9 L Hematocrit 28.8 L Mean Corpuscular Volume 97.6 Mean Corpuscular Hemoglobin 33.6 H Mean Corpuscular Hemoglobin Concent 34.4 Red Cell Distribution Width 14.8 H Platelet Count 36 L Mean Platelet Volume 11.6 H Neutrophils % Segmented Neutrophils % (Manual) 93 H Band Neutrophils % (Manual) 4 Lymphocytes % Lymphocytes % (Manual) 1 L Monocytes % Monocytes % (Manual) 2 Eosinophils % Basophils % Nucleated Red Blood Cells % 2 H Neutrophils # Neutrophils # (Manual) 17.7 H Band Neutrophils # 0.7 H Absolute Lymphocytes (Manual) 0.1 L Lymphocytes # Monocytes # Absolute Monocytes (Manual) 0.3 Eosinophils # Basophils # Nucleated Red Blood Cells # Toxic Granulation 2+ Platelet Estimate DECREASED Giant Platelets 1 H Polychromasia 2+ Hypochromasia 2+ Poikilocytosis 1+ Anisocytosis 1+ Macrocytosis 1+ Prothrombin Time 13.8 Prothrombin Time Ratio 1.1 INR International Normalized Ratio 1.06 Activated Partial Thromboplast Time 23.0 L Thrombin Time 13.0 L Fibrinogen 364.0 # Plasma Fibrin Degradation Products >10 and <40 H D-Dimer > 48633.00 H D-Dimer Comment Sodium Level 130 L Potassium Level 4.4 Chloride Level 91 L Carbon Dioxide Level 29 Anion Gap 14 Blood Urea Nitrogen 73 H Creatinine 5.82 H Glucose Level 87 Calcium Level 6.8 L Magnesium Level 2.2 Total Bilirubin 1.7 H Direct Bilirubin 1.30 H Indirect Bilirubin 0.4 Aspartate Amino Transf (AST/SGOT) 133 #H Alanine Aminotransferase (ALT/SGPT) 768 H Alkaline Phosphatase 110 Total Protein 5.3 L Albumin 2.6 L Globulin 2.70 Albumin/Globulin Ratio 0.96 Lab Scanned Report BLOOD TRANSFUSION Medications Medications Current Medications Folic Acid (Folic Acid) 1 mg DAILY PO Last administered on 05/05/17 09:17; Admin Dose 1 MG; Start 04/30/17 at 09:00 Ondansetron HCl (Zofran Inj) 4 mg Q6H PRN IV NAUSEA AND/OR VOMITING Last administered on 05/03/17 23:24; Admin Dose 4 MG; Start 04/29/17 at 20:00 Nitroglycerin (Nitroglycerin (Sl Tab) 0.4 Mg) 1 tab Q5M PRN SL CHEST PAIN; Start 04/29/17 at 20:00 Acetaminophen (Tylenol Liquid) 650 mg Q6H PRN PO PAIN LEVEL 1-3 OR FEVER; Start 04/29/17 at 20:00 Acetaminophen (Tylenol Tab) 650 mg Q6H PRN PO PAIN LEVEL 1-3 OR FEVER; Start at 20:00 Acetaminophen/ Hydrocodone Bitart ([place] (5/325)) 1 tab Q6H PRN PO PAIN LEVEL 4 -6; Start 04/29/17 at 20:00 Zolpidem Tartrate (Ambien) 5 mg QHS PRN PO INSOMNIA; Start 04/29/17 at 20:00 Docusate Sodium (Colace) 100 mg Q12H PRN PO CONSTIPATION; Start 04/29/17 at 20: 00 Bisacodyl (Dulcolax) 5 mg DAILY PRN PO CONSTIPATION; Start 04/29/17 at 20:00 Aspirin 325 mg 325 mg DAILY PO Last administered on 05/03/17 09:46; Admin Dose 325 MG; Start 04/30/17 at 09:00 Vasopressin 60 unit/Dextrose 60 ml @ 1.2 mls/hr Q12H IV Last administered on 01:07; Admin Dose 2.4 MLS/HR; Start 04/30/17 at 13:00 Fentanyl 100 ml @ 5 mls/hr TITRATE IV Last administered on 05/05/17 05:58; Admin Dose 4 MLS/HR; Start 04/30/17 at 16:00 Phenylephrine HCl 80 mg/Dextrose 250 ml @ 18.75 mls/ hr TITRATE IV Last administered on 05/04/17 09:57; Admin Dose 31.87 MLS/HR; Start 04/30/17 at 18: 00 Norepinephrine/ Dextrose (Levophed/D5W) 250 ml @ 0.46 mls/hr TITRATE IV Last administered on 05/05/17 04:13; Admin Dose 4.6 MLS/HR; Start 04/30/17 at 18:00 Pantoprazole (Protonix Iv) 40 mg BID@06,18 IV Last administered on 05/05/17 17 :01; Admin Dose 40 MG; Start 05/02/17 at 18:00 Diphenhydramine HCl 25 mg 25 mg Q4H PRN IV ITCHING Last administered on 16:41; Admin Dose 25 MG; Start 05/02/17 at 08:30 Cefepime HCl 50 ml @ 100 mls/hr Q24H IVPB Last administered on 05/05/17 11:46 ; Admin Dose 100 MLS/HR; Start 05/02/17 at 11:00 Dobutamine HCl/ Dextrose 250 ml @ 4.755 mls/ hr TITRATE IV Last administered on 05/05/17 16:59; Admin Dose 19.02 MLS/HR; Start 05/03/17 at 09:30 Miscellaneous Information 1 ea NOTE XX ; Start 05/03/17 at 13:00 Glucose (Glutose) 15 gm Q15M PRN PO DECREASED GLUCOSE; Start 05/03/17 at 12:45 Glucose (Glutose) 22.5 gm Q15M PRN PO DECREASED GLUCOSE; Start 05/03/17 at 12: 45 Dextrose (D50w Syringe) 25 ml Q15M PRN IV DECREASED GLUCOSE Last administered on 05/03/17 12:48; Admin Dose 25 ML; Start 05/03/17 at 12:45 Dextrose (D50w Syringe) 50 ml Q15M PRN IV DECREASED GLUCOSE; Start 05/03/17 at 12:46 Glucagon (Glucagen) 1 mg Q15M PRN IM DECREASED GLUCOSE; Start 05/03/17 at 12:46 Glucose 15 gm 15 gm Q15M PRN BUCCAL DECREASED GLUCOSE; Start 05/03/17 at 12:46 Midazolam HCl 50 ml @ 1 mls/hr TITRATE IV Last administered on 05/04/17 22:09 ; Admin Dose 1 MLS/HR; Start 05/03/17 at 15:00 Dextrose/Sodium Chloride 1,000 ml @ 20 mls/hr Q24H IV Last administered on 16:06; Admin Dose 20 MLS/HR; Start 05/03/17 at 16:00 Amiodarone HCl/ Dextrose (Cordarone Iv/ D5W) 500 ml @ 16.66 mls/ hr Q24H IV Last administered on 05/04/17 22:29; Admin Dose 16.66 MLS/HR; Start 05/03/17 at 21:00 Metoclopramide HCl (Reglan) 5 mg Q6 IV Last administered on 05/05/17 17:02; Admin Dose 5 MG; Start 05/04/17 at 12:00 Nystatin (Nystatin Susp) 5 ml QID PO Last administered on 05/05/17 16:58; Admin Dose 5 ML; Start 05/04/17 at 13:00 Methylprednisolone Sodium Succinate (Solu-Medrol) 40 mg DAILY IV Last administered on 05/05/17 09:17; Admin Dose 40 MG; Start 05/05/17 at 09:00 KEVIN PICKERING MD May 05, 2017 20:00
[2017-05-06] VITALS (79 sets, daily range): BP systolic 80–138; BP diastolic 39–84; PULSE 61–89; RESP 7–22
[2017-05-06] MEDS: VASOPRESSIN 60 UNIT in DEXTROSE 5% 57 ML IV SCH ×2 (01:00→13:00)
[2017-05-06] MEDS: METOCLOPRAMIDE 10 MG INJ IV SCH ×5 (01:13→23:59)
[2017-05-06] MEDS: IPRATROPIUM (HFA) 12.9 GM INHALER INH SCH ×4 (01:56→19:35)
[2017-05-06] MEDS: ALBUTEROL 18 GM INHALER INH SCH ×4 (01:57→19:35)
[2017-05-06] MEDS: AMIODARONE 900 MG in DEXTROSE 5% 482 ML IV SCH ×2 (04:01→21:00)
[2017-05-06 05:08] LABS: ABNORMAL IP MESSAGE 1; HEMATOCRIT 27.3 % (42.0-52.0); MEAN CORPUSCULAR HEMOGLOBIN 33.1 pg (29.0-33.0); MEAN CORPUSCULAR VOLUME 100.4 fl (82.0-101.0); NUCLEATED RED BLOOD CELLS% 0.4 /100WBC (0.0-0.0); POSITIVE DIFF @See below; RED BLOOD COUNT 2.72 10^6/ul (4.70-6.10); RED CELL DISTRIBUTION WIDTH 15.3 % (11.5-14.5); WHITE BLOOD COUNT 17.1 10^3/ul (4.8-10.8)
[2017-05-06] MEDS: NORepinephrine 32 MG in DEXTROSE 5% 218 ML IV SCH (05:15)
[2017-05-06] MEDS: FENTAnyl (DRIP) 1000 mcg/100mL 100 ML IV SCH ×2 (05:18→17:20)
[2017-05-06 05:19] LABS: ALBUMIN 2.7 g/dl (3.3-4.9); ALBUMIN/GLOBULIN RATIO 1.08; BILIRUBIN,DIRECT 1.1 mg/dl (0.00-0.20); BILIRUBIN,INDIRECT 0.4 mg/dl (0-1.1); BILIRUBIN,TOTAL 1.5 mg/dl (0.2-1.3); CALCIUM 7.3 mg/dl (8.4-10.2); CREATININE 5.05 mg/dl (0.61-1.24); TOTAL PROTEIN 5.2 g/dl (6.1-8.1)
[2017-05-06 05:22] LABS: PLATELET COUNT 26 10^3/UL (140-415)
[2017-05-06] MEDS: DOBUTamine/D5W 2 MG/ML DRIP 250 ML IV SCH (05:23)
[2017-05-06 05:26] LABS: PROTIME 15.3 Sec (12.2-14.2); PT RATIO 1.2
[2017-05-06 05:40] LABS: PARTIAL THROMBOPLASTIN TIME 37.1 Sec (25.0-35.0); THROMBIN TIME 18.2 SEC (13.8-19.1)
[2017-05-06 05:46] LABS: PLATELET COUNT 26 10^3/UL (140-440)
[2017-05-06 06:24] LABS: D-DIMER > 10000.00 ng/ml (<460)
[2017-05-06] MEDS: PANTOPRAZOLE 40 MG INJ IV SCH ×2 (06:32→17:37)
[2017-05-06 07:54] LABS: ANISOCYTOSIS 1+ (0-0); HYPOCHROMASIA 1+ (0-0); MONOCYTES % (M) 5 % (0-11); PLATELET ESTIMATE SIG DECREASED; POLYCHROMASIA 1+ (0-0)
[2017-05-06 08:19] LABS: AADO2 Arterial 128.6 mmHg (7.0-24.0); Allen Test ACCEPTAB; Arterial Base Excess 2.8 mmol/L (-3.0-3); Arterial COHb 0.5 % (0.0-3.0); Arterial Fraction of Oxyhgb 96.8 % (93.0-99.0); Arterial MetHb 0.1 % (0.0-1.5); Arterial Total Hemglobin 9.8 g/dl (12.0-18.0); MODE VENT - AC
[2017-05-06] MEDS: ASPIRIN 325 MG TAB PO SCH (09:00)
[2017-05-06] MEDS: NYSTATIN SUSP 5 ML CUP PO SCH ×4 (09:08→21:33)
[2017-05-06] MEDS: METHYLPREDNISOLONE 40 MG INJ IV SCH (09:08)
[2017-05-06] MEDS: FOLIC ACID 1 MG TAB PO SCH (09:08)
--- NOTE | 2017-05-06 09:08 | PN ---
Date/Time of Note Date/Time of Note DATE: 05/06/17 TIME: 09:04 Assessment/Plan VTE Prophylaxis VTE Prophylaxis Intervention: contraindicated VTE Contraindication Reason: bleeding Lines/Catheters IV Catheter Type (from Nrsg): Central Line Central line still needed: Yes Urinary Cath still in place: No Assessment/Plan Chief Complaint/Hosp Course 87 y/o with # s/p V Tachy/V Fib likely secondary to ischemia on Amiodarone and s/p Digoxin # Shock likely Cardiogenic with AMI with Tropinins 150 on 3 pressors> downtrending Troponin to 40>15 likely combination of sepsis with Strep bactermia however repeat bld cx negative. Sputum cx+nelly. 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, now more edematous # Acute on chronic heart failure with EF 30% # Shock liver improving LFTs with improving ischemia # Lactic acidosis # Respiratory failure on Vent # Thrombocytopenia s/p 1 unit platelets likley due to shock liver # Anemia S/P 2 units PRBC # Right arm DVT but cannot be on anticoagulation due to thrombocytopenia Recs - Titrate off pressors only on Levophed 1 and Dopamine 10 - 1 unit of platelet today - Will talk to HD center about baseline BPs' - Concentrate all gtts and abx - c/w Amiodarone - c/w cefepime and repeat Bld cx negative so far, c/w Nystatin - c/w Hydrocortisone to 40 q daily -- On FI02 40% , Vent management per Pulmonary - c/w Hold Heparin due to thrombocytopenia, c/w ASA - Daily Mg levels - Assess daily for HD needs - C per Dr Montgomery once more stable Problems: Subjective 24 Hr Interval Summary Free Text/Dictation HD done yesterday only able to remove 500 ml On Dobutamine 10 , Levophed 1 FI02 40% Opens eyes Exam/Review of Systems Vital Signs Vitals Vital Signs Date Time Temp Pulse Resp B/P Pulse Ox O2 Delivery O2 Flow Rate FiO2 05/06/17 08:00 70 14 89/44 100 Mechanical Ventilator 05/06/17 08:00 40 05/06/17 04:00 98.5 Intake and Output 05/05/17 05/05/17 05/06/17 15:00 23:00 07:00 Intake Total 1187.96 ml 423.180 ml 400.96 ml Output Total 2500 ml 0 ml Balance -1312.04 ml 423.180 ml 400.96 ml Exam General:Intubated, sedated, opens eyes NECK: JVD elevated, no thyromegaly, intub Lymph: no lymphadenopathy HEART: regular with no S3, BRANDI LUNGS: decreased breath sounds b/l ABD: soft, NT, ND, +BS Neuro: non focal SKIN: chronic changes EXT: Edema arms 2+ more on rta arm>left Results Result Diagram: 05/06/17 0350 05/06/17 0350 Results 24 hrs Laboratory Tests Test 05/06/17 03:50 05/06/17 07:00 White Blood Count 17.1 H Red Blood Count 2.72 L Hemoglobin 9.0 L Hematocrit 27.3 L Mean Corpuscular Volume 100.4 Mean Corpuscular Hemoglobin 33.1 H Mean Corpuscular Hemoglobin Concent 33.0 Red Cell Distribution Width 15.3 H Platelet Count 26 #*L Mean Platelet Volume 13.0 H Neutrophils % Segmented Neutrophils % (Manual) 84 H Band Neutrophils % (Manual) 6 H Lymphocytes % Lymphocytes % (Manual) 5 L Monocytes % Monocytes % (Manual) 5 Eosinophils % Basophils % Nucleated Red Blood Cells % 0.4 H Neutrophils # Neutrophils # (Manual) 14.5 H Band Neutrophils # 1.0 H Absolute Lymphocytes (Manual) 0.8 Lymphocytes # Monocytes # Absolute Monocytes (Manual) 0.8 Eosinophils # Basophils # Nucleated Red Blood Cells # Platelet Estimate SIG DECREASED Polychromasia 1+ Hypochromasia 1+ Anisocytosis 1+ Macrocytosis 1+ Prothrombin Time 15.3 H Prothrombin Time Ratio 1.2 INR International Normalized Ratio 1.20 Activated Partial Thromboplast Time 37.1 H Thrombin Time 18.2 Fibrinogen 309.0 # Plasma Fibrin Degradation Products Pending D-Dimer > 04254.00 H Sodium Level 138 Potassium Level 4.0 Chloride Level 98 Carbon Dioxide Level 30 Anion Gap 14 Blood Urea Nitrogen 57 H Creatinine 5.05 H Glucose Level 105 Calcium Level 7.3 L Magnesium Level 2.2 Total Bilirubin 1.5 H Direct Bilirubin 1.10 H Indirect Bilirubin 0.4 Aspartate Amino Transf (AST/SGOT) 67 H Alanine Aminotransferase (ALT/SGPT) 494 H Alkaline Phosphatase 104 Total Protein 5.2 L Albumin 2.7 L Globulin 2.50 Albumin/Globulin Ratio 1.08 Blood Gas Specimen Source Blood arterial Arterial Blood Date Drawn 05/06/2017 7:25:21 AM Arterial Blood pH (Temp corrected) 7.402 Arterial Blood pCO2 (Temp correct) 46.1 H Arterial Blood pO2 (Temp corrected) 103.6 H Arterial Blood HCO3 28.0 H Arterial Blood Base Excess 2.8 Arterial Blood Oxygen Saturation 97.4 Huntre Test ACCEPTAB Arterial Blood Gas Puncture Site Right Radial Arterial Blood Carboxyhemoglobin 0.5 Arterial Blood Methemoglobin 0.1 Blood Gas A-a O2 Differential 128.6 H Oxyhemoglobin Percent 96.8 Total Hemoglobin 9.8 L Blood Gas Temperature 37.0 Blood Gas Respiration Rate 16.0 Blood Gas Actual Respiration Rate 16 Blood Gas Modality VENT - AC FiO2 40.0 Blood Gas Tidal Volume 500.0 Blood Gas Low PEEP Setting 5.0 Blood Gas Notified Whom CW Blood Gas Notified Time 05/06/2017 8:19:26 AM Medications Medications Current Medications Folic Acid (Folic Acid) 1 mg DAILY PO Last administered on 05/05/17 09:17; Admin Dose 1 MG; Start 04/30/17 at 09:00 Ondansetron HCl (Zofran Inj) 4 mg Q6H PRN IV NAUSEA AND/OR VOMITING Last administered on 05/03/17 23:24; Admin Dose 4 MG; Start 04/29/17 at 20:00 Nitroglycerin (Nitroglycerin (Sl Tab) 0.4 Mg) 1 tab Q5M PRN SL CHEST PAIN; Start 04/29/17 at 20:00 Acetaminophen (Tylenol Liquid) 650 mg Q6H PRN PO PAIN LEVEL 1-3 OR FEVER; Start 04/29/17 at 20:00 Acetaminophen (Tylenol Tab) 650 mg Q6H PRN PO PAIN LEVEL 1-3 OR FEVER; Start at 20:00 Acetaminophen/ Hydrocodone Bitart ([place] (5/325)) 1 tab Q6H PRN PO PAIN LEVEL 4 -6; Start 04/29/17 at 20:00 Zolpidem Tartrate (Ambien) 5 mg QHS PRN PO INSOMNIA; Start 04/29/17 at 20:00 Docusate Sodium (Colace) 100 mg Q12H PRN PO CONSTIPATION; Start 04/29/17 at 20: 00 Bisacodyl (Dulcolax) 5 mg DAILY PRN PO CONSTIPATION; Start 04/29/17 at 20:00 Aspirin 325 mg 325 mg DAILY PO Last administered on 05/03/17 09:46; Admin Dose 325 MG; Start 04/30/17 at 09:00 Vasopressin 60 unit/Dextrose 60 ml @ 1.2 mls/hr Q12H IV Last administered on 01:07; Admin Dose 2.4 MLS/HR; Start 04/30/17 at 13:00 Phenylephrine HCl 80 mg/Dextrose 250 ml @ 18.75 mls/ hr TITRATE IV Last administered on 05/04/17 09:57; Admin Dose 31.87 MLS/HR; Start 04/30/17 at 18: 00 Norepinephrine/ Dextrose (Levophed/D5W) 250 ml @ 0.46 mls/hr TITRATE IV Last administered on 05/06/17 05:15; Admin Dose 0.46 MLS/HR; Start 04/30/17 at 18:00 Pantoprazole (Protonix Iv) 40 mg BID@06,18 IV Last administered on 05/06/17 06 :32; Admin Dose 40 MG; Start 05/02/17 at 18:00 Diphenhydramine HCl 25 mg 25 mg Q4H PRN IV ITCHING Last administered on 16:41; Admin Dose 25 MG; Start 05/02/17 at 08:30 Cefepime HCl 50 ml @ 100 mls/hr Q24H IVPB Last administered on 05/05/17 11:46 ; Admin Dose 100 MLS/HR; Start 05/02/17 at 11:00 Dobutamine HCl/ Dextrose 250 ml @ 4.755 mls/ hr TITRATE IV Last administered on 05/06/17 05:23; Admin Dose 19.02 MLS/HR; Start 05/03/17 at 09:30 Miscellaneous Information 1 ea NOTE XX ; Start 05/03/17 at 13:00 Glucose (Glutose) 15 gm Q15M PRN PO DECREASED GLUCOSE; Start 05/03/17 at 12:45 Glucose (Glutose) 22.5 gm Q15M PRN PO DECREASED GLUCOSE; Start 05/03/17 at 12: 45 Dextrose (D50w Syringe) 25 ml Q15M PRN IV DECREASED GLUCOSE Last administered on 05/03/17 12:48; Admin Dose 25 ML; Start 05/03/17 at 12:45 Dextrose (D50w Syringe) 50 ml Q15M PRN IV DECREASED GLUCOSE; Start 05/03/17 at 12:46 Glucagon (Glucagen) 1 mg Q15M PRN IM DECREASED GLUCOSE; Start 05/03/17 at 12:46 Glucose 15 gm 15 gm Q15M PRN BUCCAL DECREASED GLUCOSE; Start 05/03/17 at 12:46 Midazolam HCl 50 ml @ 1 mls/hr TITRATE IV Last administered on 05/04/17 22:09 ; Admin Dose 1 MLS/HR; Start 05/03/17 at 15:00 Dextrose/Sodium Chloride 1,000 ml @ 20 mls/hr Q24H IV Last administered on 16:06; Admin Dose 20 MLS/HR; Start 05/03/17 at 16:00 Amiodarone HCl/ Dextrose (Cordarone Iv/ D5W) 500 ml @ 16.66 mls/ hr Q24H IV Last administered on 05/06/17 04:01; Admin Dose 16.66 MLS/HR; Start 05/03/17 at 21:00 Metoclopramide HCl (Reglan) 5 mg Q6 IV Last administered on 05/06/17 06:32; Admin Dose 5 MG; Start 05/04/17 at 12:00 Nystatin (Nystatin Susp) 5 ml QID PO Last administered on 05/05/17 21:26; Admin Dose 5 ML; Start 05/04/17 at 13:00 Methylprednisolone Sodium Succinate 40 mg 40 mg DAILY IV Last administered on 09:17; Admin Dose 40 MG; Start 05/05/17 at 09:00 Fentanyl (Sublimaze) 100 ml @ 5 mls/hr TITRATE IV ; Start 05/06/17 at 08:30 ARNULFO BLEVINS MD May 06, 2017 09:08
--- NOTE | 2017-05-06 09:09 | RADRPT ---
PROCEDURE: XR Chest. CLINICAL INDICATION: Shortness of breath. TECHNIQUE: Single frontal view. COMPARISON: 05/04/2017. FINDINGS: The endotracheal tube remains in satisfactory position. The nasogastric tube should be advanced appr oximately 10 cm. There is air space disease at the left lung base consistent with atelectasis or pne umonia. Mild pulmonary edema is unchanged. There is a calcified granuloma in the right mid lung zone laterally. The heart is enlarged. There is calcification in the aorta consistent with atherosclerosis. There ar e sternal wires and mediastinal clips. There is no pleural effusion. There is no pneumothorax. IMPRESSION: 1. The nasogastric tube should be advanced approximately 10 cm. 2. Mild pulmonary edema, unchanged. 3. Cardiomegaly. 4. No significant change from 05/04/2017. RPTAT: QQ .Solomon Mulligan MD, MD Date Time Electronically viewed and signed by .Solomon Mulligan MD, MD on 05/06/2017 09:09 .R/
[2017-05-06] MEDS ORDERED: ACETAMINOPHEN 325 MG TAB PO ONE (09:30)
[2017-05-06 10:19] LABS: FIBRIN SPLIT PRODUCT >10 and <40 ug/ml (<10)
[2017-05-06] MEDS: CEFEPIME 1GM/50 ML (PMX) 50 ML IVPB SCH (12:06)
--- NOTE | 2017-05-06 12:46 | PN ---
DATE: 05/06/2017 SUBJECTIVE DATA: No events overnight. The patient remains intubated on pressors. He is in no distress. Daughter at bedside. No fevers. Temperature 98.5, pulse 70, respirations blood pressure 89/44, saturation 100 on 40 FiO2. WBC 17.1, H and H 9 and 27.3, platelets 26, neutrophils 84, bands 6, BUN 57, creatinine 5.05. MICROBIOLOGY: Blood cultures repeated on May 02 negative. DIAGNOSTICS: Chest x-ray this morning revealed mild pulmonary edema. INDWELLINGS: Endotracheal tube, NG tube, right femoral triple lumen catheter, left upper extremity AV fistula. ANTIMICROBIALS: Patient is on: 1. Cefepime. 2. Vancomycin. PHYSICAL EXAMINATION: GENERAL: This is a chronically ill-appearing, elderly [place] man who is intubated, in no distress. HEENT: Head atraumatic, normocephalic. Sclerae anicteric. Buccal mucosa dry. NECK: Supple. CHEST: Rise symmetrical. Breath sounds diminished at the bases. HEART: S1, S2. ABDOMEN: Soft, bowel sounds present. EXTREMITIES: Cyanotic, with bilateral trace edema. SKIN: No jaundice. No cyanosis. ASSESSMENT: 1. Severe sepsis with shock, multifactorial. 2. Streptococcal bacteremia on admission. With repeat blood cultures negative. 3. Respiratory failure possibly aspiration event. 4. End-stage renal disease, hemodialysis dependent. 5. Acute myocardial infarction. 6. History of coronary artery bypass grafting. 7. Resolving transaminitis likely secondary to shock liver. 8. Gallstones. PLAN: The patient remains hemodynamically unstable. He is on appropriate antibiotics. Also getting steroids. He is being seen by multiple consultants. Continue present care. Dictated By: Chelly Hudson NP /valarie/annalise /Document#: [id number]
--- NOTE | 2017-05-06 13:21 | CONS ---
Date/Time of Note Date/Time of Note DATE: 05/06/17 TIME: 13:13 Assessment/Plan Assessment/Plan Chief Complaint/Hosp Course IMP: 1.Acute VT-now downtrending cardiac enzymes without signs of ongoing myocardial necrosis 2.Shock-improving hemodynamics now only on inotropic therapy with dobutamine 3.VT-now in SR on amio 4.resp failure s/p intubation 5.renal failure-on HD 6. Leukocytosis 7. Thrombocytopenia-severe ongoing 8. Shock liver 9. CHF-systolic acute on chronic likely with EF 20% by echo this admit Recc: -ICU monitoring -Continue to slowly wean inotropic therapy as tolerated and follow for recurrent ectopy/VT -TRansition of IV amiodarone to PO amiodarone as possible and will discuss with EP -Continue to trend cardiac enzymes -Follow platelet count with asa only as tolerated following platelet count closely. Consider holding to prevent further bleeding complication -Heparin ion hold given low platelets -Will consider LHC when improved hemodynamics and blood cell indices/platelet count -F/U cx data and continue abx's -HD for volume removal as tolerated -transfuse platelets as necessary Problems: Consultation Date/Type/Reason Admit Date/Time Apr 29, 2017 at 19:31 Initial Consult Date 05/02/17 Type of Consultation: cardiology Reason for Consultation Acute VT/cardiogenic shock Referring Provider: YENNY WINSTON MD Exam/Review of Systems Vital Signs Vitals Vital Signs Date Time Temp Pulse Resp B/P Pulse Ox O2 Delivery O2 Flow Rate FiO2 05/06/17 11:17 84 16 100 40 05/06/17 08:00 89/44 Mechanical Ventilator 05/06/17 04:00 98.5 Intake and Output 05/05/17 05/05/17 05/06/17 15:00 23:00 07:00 Intake Total 1187.96 ml 423.180 ml 400.96 ml Output Total 2500 ml 0 ml Balance -1312.04 ml 423.180 ml 400.96 ml Exam Review of Systems: CONSTITUTIONAL: No fevers, chills. PULMONARY: intubated CARDIOVASCULAR: No obvious chest pain/palpitations GASTROINTESTINAL: No nausea/vomiting. GENITOURINARY: No hematuria/dysuria. MUSCULOSKELETAL: No obvious myagias/arthalgias. PSYCHIATRIC: The patient denies depression. NEUROLOGIC: sedated Constitutional: other (sedated) Head: normocephalic Neck: jvd (9 cm water), supple Respiratory: other (upper airway rhoncherous sounds) Cardiovascular: regular rate and rhythm Gastrointestinal: non-tender, soft Musculoskeletal: muscle tone (normal) Extremities: pitting pedal edema (Bilateral) Neurological: other (sedated) Results Result Diagram: 05/06/17 0350 05/06/17 0350 Results 24 hrs Laboratory Tests Test 05/06/17 03:50 05/06/17 07:00 White Blood Count 17.1 H Red Blood Count 2.72 L Hemoglobin 9.0 L Hematocrit 27.3 L Mean Corpuscular Volume 100.4 Mean Corpuscular Hemoglobin 33.1 H Mean Corpuscular Hemoglobin Concent 33.0 Red Cell Distribution Width 15.3 H Platelet Count 26 #*L Mean Platelet Volume 13.0 H Neutrophils % Segmented Neutrophils % (Manual) 84 H Band Neutrophils % (Manual) 6 H Lymphocytes % Lymphocytes % (Manual) 5 L Monocytes % Monocytes % (Manual) 5 Eosinophils % Basophils % Nucleated Red Blood Cells % 0.4 H Neutrophils # Neutrophils # (Manual) 14.5 H Band Neutrophils # 1.0 H Absolute Lymphocytes (Manual) 0.8 Lymphocytes # Monocytes # Absolute Monocytes (Manual) 0.8 Eosinophils # Basophils # Nucleated Red Blood Cells # Platelet Estimate SIG DECREASED Polychromasia 1+ Hypochromasia 1+ Anisocytosis 1+ Macrocytosis 1+ Prothrombin Time 15.3 H Prothrombin Time Ratio 1.2 INR International Normalized Ratio 1.20 Activated Partial Thromboplast Time 37.1 H Thrombin Time 18.2 Fibrinogen 309.0 # Plasma Fibrin Degradation Products >10 and <40 H D-Dimer > 99554.00 H Sodium Level 138 Potassium Level 4.0 Chloride Level 98 Carbon Dioxide Level 30 Anion Gap 14 Blood Urea Nitrogen 57 H Creatinine 5.05 H Glucose Level 105 Calcium Level 7.3 L Magnesium Level 2.2 Total Bilirubin 1.5 H Direct Bilirubin 1.10 H Indirect Bilirubin 0.4 Aspartate Amino Transf (AST/SGOT) 67 H Alanine Aminotransferase (ALT/SGPT) 494 H Alkaline Phosphatase 104 Total Protein 5.2 L Albumin 2.7 L Globulin 2.50 Albumin/Globulin Ratio 1.08 Blood Gas Specimen Source Blood arterial Arterial Blood Date Drawn 05/06/2017 7:25:21 AM Arterial Blood pH (Temp corrected) 7.402 Arterial Blood pCO2 (Temp correct) 46.1 H Arterial Blood pO2 (Temp corrected) 103.6 H Arterial Blood HCO3 28.0 H Arterial Blood Base Excess 2.8 Arterial Blood Oxygen Saturation 97.4 Hunter Test ACCEPTAB Arterial Blood Gas Puncture Site Right Radial Arterial Blood Carboxyhemoglobin 0.5 Arterial Blood Methemoglobin 0.1 Blood Gas A-a O2 Differential 128.6 H Oxyhemoglobin Percent 96.8 Total Hemoglobin 9.8 L Blood Gas Temperature 37.0 Blood Gas Respiration Rate 16.0 Blood Gas Actual Respiration Rate 16 Blood Gas Modality VENT - AC FiO2 40.0 Blood Gas Tidal Volume 500.0 Blood Gas Low PEEP Setting 5.0 Blood Gas Notified Whom CW Blood Gas Notified Time 05/06/2017 8:19:26 AM Medications Medications Current Medications Folic Acid (Folic Acid) 1 mg DAILY PO Last administered on 05/06/17 09:08; Admin Dose 1 MG; Start 04/30/17 at 09:00 Ondansetron HCl (Zofran Inj) 4 mg Q6H PRN IV NAUSEA AND/OR VOMITING Last administered on 05/03/17 23:24; Admin Dose 4 MG; Start 04/29/17 at 20:00 Nitroglycerin (Nitroglycerin (Sl Tab) 0.4 Mg) 1 tab Q5M PRN SL CHEST PAIN; Start 04/29/17 at 20:00 Acetaminophen (Tylenol Liquid) 650 mg Q6H PRN PO PAIN LEVEL 1-3 OR FEVER; Start 04/29/17 at 20:00 Acetaminophen (Tylenol Tab) 650 mg Q6H PRN PO PAIN LEVEL 1-3 OR FEVER; Start at 20:00 Acetaminophen/ Hydrocodone Bitart ([place] (5/325)) 1 tab Q6H PRN PO PAIN LEVEL 4 -6; Start 04/29/17 at 20:00 Zolpidem Tartrate (Ambien) 5 mg QHS PRN PO INSOMNIA; Start 04/29/17 at 20:00 Docusate Sodium (Colace) 100 mg Q12H PRN PO CONSTIPATION; Start 04/29/17 at 20: 00 Bisacodyl (Dulcolax) 5 mg DAILY PRN PO CONSTIPATION; Start 04/29/17 at 20:00 Aspirin 325 mg 325 mg DAILY PO Last administered on 05/03/17 09:46; Admin Dose 325 MG; Start 04/30/17 at 09:00 Vasopressin 60 unit/Dextrose 60 ml @ 1.2 mls/hr Q12H IV Last administered on 01:07; Admin Dose 2.4 MLS/HR; Start 04/30/17 at 13:00 Phenylephrine HCl 80 mg/Dextrose 250 ml @ 18.75 mls/ hr TITRATE IV Last administered on 05/04/17 09:57; Admin Dose 31.87 MLS/HR; Start 04/30/17 at 18: 00 Norepinephrine/ Dextrose (Levophed/D5W) 250 ml @ 0.46 mls/hr TITRATE IV Last administered on 05/06/17 05:15; Admin Dose 0.46 MLS/HR; Start 04/30/17 at 18:00 Pantoprazole (Protonix Iv) 40 mg BID@06,18 IV Last administered on 05/06/17 06 :32; Admin Dose 40 MG; Start 05/02/17 at 18:00 Diphenhydramine HCl 25 mg 25 mg Q4H PRN IV ITCHING Last administered on 16:41; Admin Dose 25 MG; Start 05/02/17 at 08:30 Cefepime HCl 50 ml @ 100 mls/hr Q24H IVPB Last administered on 05/06/17 12:06 ; Admin Dose 100 MLS/HR; Start 05/02/17 at 11:00 Dobutamine HCl/ Dextrose 250 ml @ 4.755 mls/ hr TITRATE IV Last administered on 05/06/17 05:23; Admin Dose 19.02 MLS/HR; Start 05/03/17 at 09:30 Miscellaneous Information 1 ea NOTE XX ; Start 05/03/17 at 13:00 Glucose (Glutose) 15 gm Q15M PRN PO DECREASED GLUCOSE; Start 05/03/17 at 12:45 Glucose (Glutose) 22.5 gm Q15M PRN PO DECREASED GLUCOSE; Start 05/03/17 at 12: 45 Dextrose (D50w Syringe) 25 ml Q15M PRN IV DECREASED GLUCOSE Last administered on 05/03/17 12:48; Admin Dose 25 ML; Start 05/03/17 at 12:45 Dextrose (D50w Syringe) 50 ml Q15M PRN IV DECREASED GLUCOSE; Start 05/03/17 at 12:46 Glucagon (Glucagen) 1 mg Q15M PRN IM DECREASED GLUCOSE; Start 05/03/17 at 12:46 Glucose 15 gm 15 gm Q15M PRN BUCCAL DECREASED GLUCOSE; Start 05/03/17 at 12:46 Midazolam HCl 50 ml @ 1 mls/hr TITRATE IV Last administered on 05/04/17 22:09 ; Admin Dose 1 MLS/HR; Start 05/03/17 at 15:00 Dextrose/Sodium Chloride 1,000 ml @ 20 mls/hr Q24H IV Last administered on 16:06; Admin Dose 20 MLS/HR; Start 05/03/17 at 16:00 Amiodarone HCl/ Dextrose (Cordarone Iv/ D5W) 500 ml @ 16.66 mls/ hr Q24H IV Last administered on 05/06/17 04:01; Admin Dose 16.66 MLS/HR; Start 05/03/17 at 21:00 Metoclopramide HCl (Reglan) 5 mg Q6 IV Last administered on 05/06/17 12:06; Admin Dose 5 MG; Start 05/04/17 at 12:00 Nystatin (Nystatin Susp) 5 ml QID PO Last administered on 05/06/17 09:08; Admin Dose 5 ML; Start 05/04/17 at 13:00 Methylprednisolone Sodium Succinate 40 mg 40 mg DAILY IV Last administered on 09:08; Admin Dose 40 MG; Start 05/05/17 at 09:00 Fentanyl (Sublimaze) 100 ml @ 5 mls/hr TITRATE IV ; Start 05/06/17 at 08:30 MARCO KENNEDY May 06, 2017 13:21
[2017-05-06] MEDS: MIDAZOLAM (DRIP) 50 mg/50 mL 50 ML IV SCH (15:46)
--- NOTE | 2017-05-06 15:55 | CONS ---
Date/Time of Note Date/Time of Note DATE: 05/06/17 TIME: 15:54 Consult Date/Type/Reason Admit Date/Time Apr 29, 2017 at 19:31 Initial Consult Date 05/02/17 Type of Consultation: Pulm Ordering Provider: YENNY WINSTON MD Subjective No changes, opens eyes occasionally but not following commands. Continues multiple vasopressors. Objective Vital Signs Date Time Temp Pulse Resp B/P Pulse Ox O2 Delivery O2 Flow Rate FiO2 05/06/17 13:38 69 16 100 40 05/06/17 08:00 89/44 Mechanical Ventilator 05/06/17 04:00 98.5 Intake and Output 05/05/17 05/05/17 05/06/17 15:00 23:00 07:00 Intake Total 1187.96 ml 423.180 ml 400.96 ml Output Total 2500 ml 0 ml Balance -1312.04 ml 423.180 ml 400.96 ml Exam HEENT orally intubated dry mucous membranes. Cardiac: S1-S2 3/6 systolic ejection murmur Respiratory: Diminished air entry bilaterally with rales Abdomen: Soft nontender no guarding or rebound Extremities: No cyanosis clubbing 1+ edema Neuro: Unable to assess at present Results/Medications Result Diagram: 05/06/17 0350 05/06/17 0350 Results 24 hrs Laboratory Tests Test 05/06/17 03:50 05/06/17 07:00 05/06/17 13:50 White Blood Count 17.1 H Red Blood Count 2.72 L Hemoglobin 9.0 L Hematocrit 27.3 L Mean Corpuscular Volume 100.4 Mean Corpuscular Hemoglobin 33.1 H Mean Corpuscular Hemoglobin Concent 33.0 Red Cell Distribution Width 15.3 H Platelet Count 26 #*L Mean Platelet Volume 13.0 H Neutrophils % Segmented Neutrophils % (Manual) 84 H Band Neutrophils % (Manual) 6 H Lymphocytes % Lymphocytes % (Manual) 5 L Monocytes % Monocytes % (Manual) 5 Eosinophils % Basophils % Nucleated Red Blood Cells % 0.4 H Neutrophils # Neutrophils # (Manual) 14.5 H Band Neutrophils # 1.0 H Absolute Lymphocytes (Manual) 0.8 Lymphocytes # Monocytes # Absolute Monocytes (Manual) 0.8 Eosinophils # Basophils # Nucleated Red Blood Cells # Platelet Estimate SIG DECREASED Polychromasia 1+ Hypochromasia 1+ Anisocytosis 1+ Macrocytosis 1+ Prothrombin Time 15.3 H Prothrombin Time Ratio 1.2 INR International Normalized Ratio 1.20 Activated Partial Thromboplast Time 37.1 H Thrombin Time 18.2 Fibrinogen 309.0 # Plasma Fibrin Degradation Products >10 and <40 H D-Dimer > 81574.00 H Sodium Level 138 Potassium Level 4.0 Chloride Level 98 Carbon Dioxide Level 30 Anion Gap 14 Blood Urea Nitrogen 57 H Creatinine 5.05 H Glucose Level 105 Calcium Level 7.3 L Magnesium Level 2.2 Total Bilirubin 1.5 H Direct Bilirubin 1.10 H Indirect Bilirubin 0.4 Aspartate Amino Transf (AST/SGOT) 67 H Alanine Aminotransferase (ALT/SGPT) 494 H Alkaline Phosphatase 104 Total Protein 5.2 L Albumin 2.7 L Globulin 2.50 Albumin/Globulin Ratio 1.08 Blood Gas Specimen Source Blood arterial Arterial Blood Date Drawn 05/06/2017 7:25:21 AM Arterial Blood pH (Temp corrected) 7.402 Arterial Blood pCO2 (Temp correct) 46.1 H Arterial Blood pO2 (Temp corrected) 103.6 H Arterial Blood HCO3 28.0 H Arterial Blood Base Excess 2.8 Arterial Blood Oxygen Saturation 97.4 Hunter Test ACCEPTAB Arterial Blood Gas Puncture Site Right Radial Arterial Blood Carboxyhemoglobin 0.5 Arterial Blood Methemoglobin 0.1 Blood Gas A-a O2 Differential 128.6 H Oxyhemoglobin Percent 96.8 Total Hemoglobin 9.8 L Blood Gas Temperature 37.0 Blood Gas Respiration Rate 16.0 Blood Gas Actual Respiration Rate 16 Blood Gas Modality VENT - AC FiO2 40.0 Blood Gas Tidal Volume 500.0 Blood Gas Low PEEP Setting 5.0 Blood Gas Notified Whom CW Blood Gas Notified Time 05/06/2017 8:19:26 AM Digoxin Level 1.5 Medications Current Medications Folic Acid (Folic Acid) 1 mg DAILY PO Last administered on 05/06/17 09:08; Admin Dose 1 MG; Start 04/30/17 at 09:00 Ondansetron HCl (Zofran Inj) 4 mg Q6H PRN IV NAUSEA AND/OR VOMITING Last administered on 05/03/17 23:24; Admin Dose 4 MG; Start 04/29/17 at 20:00 Nitroglycerin (Nitroglycerin (Sl Tab) 0.4 Mg) 1 tab Q5M PRN SL CHEST PAIN; Start 04/29/17 at 20:00 Acetaminophen (Tylenol Liquid) 650 mg Q6H PRN PO PAIN LEVEL 1-3 OR FEVER; Start 04/29/17 at 20:00 Acetaminophen (Tylenol Tab) 650 mg Q6H PRN PO PAIN LEVEL 1-3 OR FEVER; Start at 20:00 Acetaminophen/ Hydrocodone Bitart ([place] (5/325)) 1 tab Q6H PRN PO PAIN LEVEL 4 -6; Start 04/29/17 at 20:00 Zolpidem Tartrate (Ambien) 5 mg QHS PRN PO INSOMNIA; Start 04/29/17 at 20:00 Docusate Sodium (Colace) 100 mg Q12H PRN PO CONSTIPATION; Start 04/29/17 at 20: 00 Bisacodyl (Dulcolax) 5 mg DAILY PRN PO CONSTIPATION; Start 04/29/17 at 20:00 Aspirin 325 mg 325 mg DAILY PO Last administered on 05/03/17 09:46; Admin Dose 325 MG; Start 04/30/17 at 09:00 Vasopressin 60 unit/Dextrose 60 ml @ 1.2 mls/hr Q12H IV Last administered on 01:07; Admin Dose 2.4 MLS/HR; Start 04/30/17 at 13:00 Phenylephrine HCl 80 mg/Dextrose 250 ml @ 18.75 mls/ hr TITRATE IV Last administered on 05/04/17 09:57; Admin Dose 31.87 MLS/HR; Start 04/30/17 at 18: 00 Norepinephrine/ Dextrose (Levophed/D5W) 250 ml @ 0.46 mls/hr TITRATE IV Last administered on 05/06/17 05:15; Admin Dose 0.46 MLS/HR; Start 04/30/17 at 18:00 Pantoprazole (Protonix Iv) 40 mg BID@06,18 IV Last administered on 05/06/17 06 :32; Admin Dose 40 MG; Start 05/02/17 at 18:00 Diphenhydramine HCl 25 mg 25 mg Q4H PRN IV ITCHING Last administered on 16:41; Admin Dose 25 MG; Start 05/02/17 at 08:30 Cefepime HCl 50 ml @ 100 mls/hr Q24H IVPB Last administered on 05/06/17 12:06 ; Admin Dose 100 MLS/HR; Start 05/02/17 at 11:00 Dobutamine HCl/ Dextrose 250 ml @ 4.755 mls/ hr TITRATE IV Last administered on 05/06/17 05:23; Admin Dose 19.02 MLS/HR; Start 05/03/17 at 09:30 Miscellaneous Information 1 ea NOTE XX ; Start 05/03/17 at 13:00 Glucose (Glutose) 15 gm Q15M PRN PO DECREASED GLUCOSE; Start 05/03/17 at 12:45 Glucose (Glutose) 22.5 gm Q15M PRN PO DECREASED GLUCOSE; Start 05/03/17 at 12: 45 Dextrose (D50w Syringe) 25 ml Q15M PRN IV DECREASED GLUCOSE Last administered on 05/03/17 12:48; Admin Dose 25 ML; Start 05/03/17 at 12:45 Dextrose (D50w Syringe) 50 ml Q15M PRN IV DECREASED GLUCOSE; Start 05/03/17 at 12:46 Glucagon (Glucagen) 1 mg Q15M PRN IM DECREASED GLUCOSE; Start 05/03/17 at 12:46 Glucose 15 gm 15 gm Q15M PRN BUCCAL DECREASED GLUCOSE; Start 05/03/17 at 12:46 Midazolam HCl 50 ml @ 1 mls/hr TITRATE IV Last administered on 05/06/17 15:46 ; Admin Dose 2 MLS/HR; Start 05/03/17 at 15:00 Dextrose/Sodium Chloride 1,000 ml @ 20 mls/hr Q24H IV Last administered on 16:06; Admin Dose 20 MLS/HR; Start 05/03/17 at 16:00 Amiodarone HCl/ Dextrose (Cordarone Iv/ D5W) 500 ml @ 16.66 mls/ hr Q24H IV Last administered on 05/06/17 04:01; Admin Dose 16.66 MLS/HR; Start 05/03/17 at 21:00 Metoclopramide HCl (Reglan) 5 mg Q6 IV Last administered on 05/06/17 12:06; Admin Dose 5 MG; Start 05/04/17 at 12:00 Nystatin (Nystatin Susp) 5 ml QID PO Last administered on 05/06/17 13:00; Admin Dose 5 ML; Start 05/04/17 at 13:00 Methylprednisolone Sodium Succinate 40 mg 40 mg DAILY IV Last administered on t 09:08; Admin Dose 40 MG; Start 05/05/17 at 09:00 Fentanyl (Sublimaze) 100 ml @ 5 mls/hr TITRATE IV ; Start 05/06/17 at 08:30 Amiodarone HCl (Cordarone) 400 mg BID NGT ; Start 05/06/17 at 18:00 Assessment/Plan Chief Complaint/Hosp Course Assessment 1. Hypoxemic respiratory failure on mechanical ventilation 2. Multiorgan failure with septic shock, Possible DIC given low platelet count. 3. Recent upper GI bleed. 4. Persistent leukocytosis 5. 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 End-stage renal failure on hemodialysis Plan 1. Continue broad-spectrum antibiotics, and pressors. 2. Continue hemodialysis as tolerated 3. Continue mechanical ventilation 4. Start tube feeding 5. DVT and GI prophylaxis Overall prognosis very poor.Discuss with family at bedside. Problems: JIN SANTANA MD, [facility] May 06, 2017 15:55
[2017-05-06] MEDS: DEXTROSE 5%-0.9% NACL 1,000 ML IV SCH (16:27)
--- NOTE | 2017-05-06 16:55 | CONS ---
Date/Time of Note Date/Time of Note DATE: 05/06/17 TIME: 16:53 Assessment/Plan Assessment/Plan Chief Complaint/Hosp Course #Thrombocytopenia -this is secondary to shock liver as evidenced by the markedly elevated AST/ALT (>7000/5000). Liver enzymes have greatly improved -no evidence of hemolytic anemia -will continue to check daily DIC panel and transfuse 1 unit cryo if fibrinogen is < 150. fibrinogen is currently > 300 -would hold anticoagulation until platelet count is > 50K -platelet transfusion was orderer for today #Anemia -2/2 shock, sepsis and questionable bleed -s/p 2 units of PRBCs given 2 days ago #Cardiogenic shock with shock liver -management per cardiology -patient currently on pressors and ionotropic support #ESRD wit acidosis -pt now on Bicarb -continue HD as tolerated. currently blood pressure is very labile #Respiratory failure -currently intubated -cont management per pulmonary Problems: Consultation Date/Type/Reason Admit Date/Time Apr 29, 2017 at 19:31 Initial Consult Date 05/02/17 Type of Consultation: Hematology Reason for Consultation thrombocytopenia Referring Provider: YENNY WINSTON MD 24 HR Interval Summary Free Text/Dictation pt requiring less pressor support. Levophed off, dobutamine still on Exam/Review of Systems Vital Signs Vitals Vital Signs Date Time Temp Pulse Resp B/P Pulse Ox O2 Delivery O2 Flow Rate FiO2 05/06/17 15:52 65 16 100 40 05/06/17 08:00 89/44 Mechanical Ventilator 05/06/17 04:00 98.5 Intake and Output 05/05/17 05/05/17 05/06/17 15:00 23:00 07:00 Intake Total 1187.96 ml 423.180 ml 400.96 ml Output Total 2500 ml 0 ml Balance -1312.04 ml 423.180 ml 400.96 ml Exam Constitutional: alert, other (arousable, still on sedation) ENMT: intubated, nl external ears & nose Neck: non-tender, supple Respiratory: clear to auscultation Cardiovascular: regular rate and rhythm Gastrointestinal: soft Musculoskeletal: joint tenderness, nl extremities to inspection Extremities: normal pulses Neurological: EVENT ATTENDANT II-XII intact Results Result Diagram: 05/06/17 0350 05/06/17 0350 Results 24 hrs Laboratory Tests Test 05/06/17 03:50 05/06/17 07:00 05/06/17 13:50 White Blood Count 17.1 H Red Blood Count 2.72 L Hemoglobin 9.0 L Hematocrit 27.3 L Mean Corpuscular Volume 100.4 Mean Corpuscular Hemoglobin 33.1 H Mean Corpuscular Hemoglobin Concent 33.0 Red Cell Distribution Width 15.3 H Platelet Count 26 #*L Mean Platelet Volume 13.0 H Neutrophils % Segmented Neutrophils % (Manual) 84 H Band Neutrophils % (Manual) 6 H Lymphocytes % Lymphocytes % (Manual) 5 L Monocytes % Monocytes % (Manual) 5 Eosinophils % Basophils % Nucleated Red Blood Cells % 0.4 H Neutrophils # Neutrophils # (Manual) 14.5 H Band Neutrophils # 1.0 H Absolute Lymphocytes (Manual) 0.8 Lymphocytes # Monocytes # Absolute Monocytes (Manual) 0.8 Eosinophils # Basophils # Nucleated Red Blood Cells # Platelet Estimate SIG DECREASED Polychromasia 1+ Hypochromasia 1+ Anisocytosis 1+ Macrocytosis 1+ Prothrombin Time 15.3 H Prothrombin Time Ratio 1.2 INR International Normalized Ratio 1.20 Activated Partial Thromboplast Time 37.1 H Thrombin Time 18.2 Fibrinogen 309.0 # Plasma Fibrin Degradation Products >10 and <40 H D-Dimer > 43408.00 H Sodium Level 138 Potassium Level 4.0 Chloride Level 98 Carbon Dioxide Level 30 Anion Gap 14 Blood Urea Nitrogen 57 H Creatinine 5.05 H Glucose Level 105 Calcium Level 7.3 L Magnesium Level 2.2 Total Bilirubin 1.5 H Direct Bilirubin 1.10 H Indirect Bilirubin 0.4 Aspartate Amino Transf (AST/SGOT) 67 H Alanine Aminotransferase (ALT/SGPT) 494 H Alkaline Phosphatase 104 Total Protein 5.2 L Albumin 2.7 L Globulin 2.50 Albumin/Globulin Ratio 1.08 Blood Gas Specimen Source Blood arterial Arterial Blood Date Drawn 05/06/2017 7:25:21 AM Arterial Blood pH (Temp corrected) 7.402 Arterial Blood pCO2 (Temp correct) 46.1 H Arterial Blood pO2 (Temp corrected) 103.6 H Arterial Blood HCO3 28.0 H Arterial Blood Base Excess 2.8 Arterial Blood Oxygen Saturation 97.4 [place] Test ACCEPTAB Arterial Blood Gas Puncture Site Right Radial Arterial Blood Carboxyhemoglobin 0.5 Arterial Blood Methemoglobin 0.1 Blood Gas A-a O2 Differential 128.6 H Oxyhemoglobin Percent 96.8 Total Hemoglobin 9.8 L Blood Gas Temperature 37.0 Blood Gas Respiration Rate 16.0 Blood Gas Actual Respiration Rate 16 Blood Gas Modality VENT - AC FiO2 40.0 Blood Gas Tidal Volume 500.0 Blood Gas Low PEEP Setting 5.0 Blood Gas Notified Whom CW Blood Gas Notified Time 05/06/2017 8:19:26 AM Digoxin Level 1.5 Medications Medications Current Medications Folic Acid (Folic Acid) 1 mg DAILY PO Last administered on 05/06/17 09:08; Admin Dose 1 MG; Start 04/30/17 at 09:00 Ondansetron HCl (Zofran Inj) 4 mg Q6H PRN IV NAUSEA AND/OR VOMITING Last administered on 05/03/17 23:24; Admin Dose 4 MG; Start 04/29/17 at 20:00 Nitroglycerin (Nitroglycerin (Sl Tab) 0.4 Mg) 1 tab Q5M PRN SL CHEST PAIN; Start 04/29/17 at 20:00 Acetaminophen (Tylenol Liquid) 650 mg Q6H PRN PO PAIN LEVEL 1-3 OR FEVER; Start 04/29/17 at 20:00 Acetaminophen (Tylenol Tab) 650 mg Q6H PRN PO PAIN LEVEL 1-3 OR FEVER; Start at 20:00 Acetaminophen/ Hydrocodone Bitart ([place] (5/325)) 1 tab Q6H PRN PO PAIN LEVEL 4 -6; Start 04/29/17 at 20:00 Zolpidem Tartrate (Ambien) 5 mg QHS PRN PO INSOMNIA; Start 04/29/17 at 20:00 Docusate Sodium (Colace) 100 mg Q12H PRN PO CONSTIPATION; Start 04/29/17 at 20: 00 Bisacodyl (Dulcolax) 5 mg DAILY PRN PO CONSTIPATION; Start 04/29/17 at 20:00 Aspirin 325 mg 325 mg DAILY PO Last administered on 05/03/17 09:46; Admin Dose 325 MG; Start 04/30/17 at 09:00 Vasopressin 60 unit/Dextrose 60 ml @ 1.2 mls/hr Q12H IV Last administered on 01:07; Admin Dose 2.4 MLS/HR; Start 04/30/17 at 13:00 Phenylephrine HCl 80 mg/Dextrose 250 ml @ 18.75 mls/ hr TITRATE IV Last administered on 05/04/17 09:57; Admin Dose 31.87 MLS/HR; Start 04/30/17 at 18: 00 Norepinephrine/ Dextrose (Levophed/D5W) 250 ml @ 0.46 mls/hr TITRATE IV Last administered on 05/06/17 05:15; Admin Dose 0.46 MLS/HR; Start 04/30/17 at 18:00 Pantoprazole (Protonix Iv) 40 mg BID@06,18 IV Last administered on 05/06/17 06 :32; Admin Dose 40 MG; Start 05/02/17 at 18:00 Diphenhydramine HCl 25 mg 25 mg Q4H PRN IV ITCHING Last administered on 16:41; Admin Dose 25 MG; Start 05/02/17 at 08:30 Cefepime HCl 50 ml @ 100 mls/hr Q24H IVPB Last administered on 05/06/17 12:06 ; Admin Dose 100 MLS/HR; Start 05/02/17 at 11:00 Dobutamine HCl/ Dextrose 250 ml @ 4.755 mls/ hr TITRATE IV Last administered on 05/06/17 05:23; Admin Dose 19.02 MLS/HR; Start 05/03/17 at 09:30 Miscellaneous Information 1 ea NOTE XX ; Start 05/03/17 at 13:00 Glucose (Glutose) 15 gm Q15M PRN PO DECREASED GLUCOSE; Start 05/03/17 at 12:45 Glucose (Glutose) 22.5 gm Q15M PRN PO DECREASED GLUCOSE; Start 05/03/17 at 12: 45 Dextrose (D50w Syringe) 25 ml Q15M PRN IV DECREASED GLUCOSE Last administered on 05/03/17 12:48; Admin Dose 25 ML; Start 05/03/17 at 12:45 Dextrose (D50w Syringe) 50 ml Q15M PRN IV DECREASED GLUCOSE; Start 05/03/17 at 12:46 Glucagon (Glucagen) 1 mg Q15M PRN IM DECREASED GLUCOSE; Start 05/03/17 at 12:46 Glucose 15 gm 15 gm Q15M PRN BUCCAL DECREASED GLUCOSE; Start 05/03/17 at 12:46 Midazolam HCl 50 ml @ 1 mls/hr TITRATE IV Last administered on 05/06/17 15:46 ; Admin Dose 2 MLS/HR; Start 05/03/17 at 15:00 Dextrose/Sodium Chloride 1,000 ml @ 20 mls/hr Q24H IV Last administered on 16:27; Admin Dose 20 MLS/HR; Start 05/03/17 at 16:00 Amiodarone HCl/ Dextrose (Cordarone Iv/ D5W) 500 ml @ 16.66 mls/ hr Q24H IV Last administered on 05/06/17 04:01; Admin Dose 16.66 MLS/HR; Start 05/03/17 at 21:00 Metoclopramide HCl (Reglan) 5 mg Q6 IV Last administered on 05/06/17 12:06; Admin Dose 5 MG; Start 05/04/17 at 12:00 Nystatin (Nystatin Susp) 5 ml QID PO Last administered on 05/06/17 13:00; Admin Dose 5 ML; Start 05/04/17 at 13:00 Methylprednisolone Sodium Succinate 40 mg 40 mg DAILY IV Last administered on 09:08; Admin Dose 40 MG; Start 05/05/17 at 09:00 Fentanyl (Sublimaze) 100 ml @ 5 mls/hr TITRATE IV ; Start 05/06/17 at 08:30 Amiodarone HCl (Cordarone) 400 mg BID NGT ; Start 05/06/17 at 18:00 JEFF HANSON M.D. May 06, 2017 16:55
[2017-05-06] MEDS: AMIODARONE 200 MG TAB NGT SCH ×2 (17:54→21:33)
--- NOTE | 2017-05-06 19:03 | CONS ---
Date/Time of Note Date/Time of Note DATE: 05/06/17 TIME: 18:55 Assessment/Plan Assessment/Plan Chief Complaint/Hosp Course This is a 87 y/o male with pmh of HTN, HLD, RF on HD, CAD and CABG x 20 yrs ago (1997) Presented to the hospital with VT at a rate of 220 bpm, with a RBBB and inferior axis. The pt required a shock and was sent to the ICU. Per lab notes, Trop was 30 on the day of admission. The pt later in the ICU, required to be intubated. The Echo was done yesterday, the pt has an EF of 30% with mild AI and Mild MR per remanufacturing technician. The ECG did not reveal ST elevation. The family wants everything to be done. He is now on 4 pressors, Levophed, vasopressin, Sean and Dobutamine. The pt is now receiving HD and the BP is 86 systolic. He is on 100% FIO2. 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 05/02/2017 The patient is improving with the LFTs decreasing, the Trop trending down, the FIO2 is now at 50% instead of 100%, He is on 3 pressors and will wean off the pressors again. 05/03/2017 The pt is still on 3 pressors He is using less FIO2 at 40 % The pt will need an A line, attempted it, but could not pass the small wire. Will need kit from the bottle labeler tomorrow the pt will need to start on Amiodarone drip for HR control and on Digoxin 0.5 mg IV x 1 only the pt will also then need to be slowly weaned off of the pressors. will check ABG in AM. 05/04/2017 the pt is in SR, at 77 bpm.The Amiodarone should be continued for now. No more VT or PVCs either The pt is now on two pressors and on 40 % FiO2 Has a right arm DVT and IJ thrombus Cannot be on Heparin because of thrombocythopenia and requiring platelt transfusion The pt will cont the med tx and hopefuly may be able to able to reduce to one pressor soon. 05/05/2017 The pt is slowly improving Once the pt is off of the drips, he may then be extubated The pt will also need a cath once stable. Will cont the Amiodarone for now and will follow up The nurse will try to titrate off the levophed. 05/06/2017 The pt is seen and examined The nurse is present The pt is improving The pt is only on 3mcg/kg/min of dobutamine and will most likely come off of this and the will be weaned off to extubate him The pt will be on PO amio soon. Then discontinue the IV amio Problems: Consultation Date/Type/Reason Admit Date/Time Apr 29, 2017 at 19:31 Initial Consult Date 05/02/17 Type of Consultation: Hematology Referring Provider: YENNY WINSTON MD 24 HR Interval Summary Free Text/Dictation the pt is requiring less and less pressors only on 3 mcg/kg/min of dobutamine Exam/Review of Systems Vital Signs Vitals Vital Signs Date Time Temp Pulse Resp B/P Pulse Ox O2 Delivery O2 Flow Rate FiO2 05/06/17 17:32 82 16 100 40 05/06/17 16:45 98/49 05/06/17 16:00 97.9 Mechanical Ventilator Intake and Output 05/05/17 05/05/17 05/06/17 15:00 23:00 07:00 Intake Total 1187.96 ml 423.180 ml 467.10 ml Output Total 2500 ml 0 ml Balance -1312.04 ml 423.180 ml 467.10 ml Results Result Diagram: 05/06/17 0350 05/06/17 0350 Results 24 hrs Laboratory Tests Test 05/06/17 03:50 05/06/17 07:00 05/06/17 13:50 White Blood Count 17.1 H Red Blood Count 2.72 L Hemoglobin 9.0 L Hematocrit 27.3 L Mean Corpuscular Volume 100.4 Mean Corpuscular Hemoglobin 33.1 H Mean Corpuscular Hemoglobin Concent 33.0 Red Cell Distribution Width 15.3 H Platelet Count 26 #*L Mean Platelet Volume 13.0 H Neutrophils % Segmented Neutrophils % (Manual) 84 H Band Neutrophils % (Manual) 6 H Lymphocytes % Lymphocytes % (Manual) 5 L Monocytes % Monocytes % (Manual) 5 Eosinophils % Basophils % Nucleated Red Blood Cells % 0.4 H Neutrophils # Neutrophils # (Manual) 14.5 H Band Neutrophils # 1.0 H Absolute Lymphocytes (Manual) 0.8 Lymphocytes # Monocytes # Absolute Monocytes (Manual) 0.8 Eosinophils # Basophils # Nucleated Red Blood Cells # Platelet Estimate SIG DECREASED Polychromasia 1+ Hypochromasia 1+ Anisocytosis 1+ Macrocytosis 1+ Prothrombin Time 15.3 H Prothrombin Time Ratio 1.2 INR International Normalized Ratio 1.20 Activated Partial Thromboplast Time 37.1 H Thrombin Time 18.2 Fibrinogen 309.0 # Plasma Fibrin Degradation Products >10 and <40 H D-Dimer > 96866.00 H Sodium Level 138 Potassium Level 4.0 Chloride Level 98 Carbon Dioxide Level 30 Anion Gap 14 Blood Urea Nitrogen 57 H Creatinine 5.05 H Glucose Level 105 Calcium Level 7.3 L Magnesium Level 2.2 Total Bilirubin 1.5 H Direct Bilirubin 1.10 H Indirect Bilirubin 0.4 Aspartate Amino Transf (AST/SGOT) 67 H Alanine Aminotransferase (ALT/SGPT) 494 H Alkaline Phosphatase 104 Total Protein 5.2 L Albumin 2.7 L Globulin 2.50 Albumin/Globulin Ratio 1.08 Blood Gas Specimen Source Blood arterial Arterial Blood Date Drawn 05/06/2017 7:25:21 AM Arterial Blood pH (Temp corrected) 7.402 Arterial Blood pCO2 (Temp correct) 46.1 H Arterial Blood pO2 (Temp corrected) 103.6 H Arterial Blood HCO3 28.0 H Arterial Blood Base Excess 2.8 Arterial Blood Oxygen Saturation 97.4 [place] Test ACCEPTAB Arterial Blood Gas Puncture Site Right Radial Arterial Blood Carboxyhemoglobin 0.5 Arterial Blood Methemoglobin 0.1 Blood Gas A-a O2 Differential 128.6 H Oxyhemoglobin Percent 96.8 Total Hemoglobin 9.8 L Blood Gas Temperature 37.0 Blood Gas Respiration Rate 16.0 Blood Gas Actual Respiration Rate 16 Blood Gas Modality VENT - AC FiO2 40.0 Blood Gas Tidal Volume 500.0 Blood Gas Low PEEP Setting 5.0 Blood Gas Notified Whom CW Blood Gas Notified Time 05/06/2017 8:19:26 AM Digoxin Level 1.5 Medications Medications Current Medications Folic Acid (Folic Acid) 1 mg DAILY PO Last administered on 05/06/17 09:08; Admin Dose 1 MG; Start 04/30/17 at 09:00 Ondansetron HCl (Zofran Inj) 4 mg Q6H PRN IV NAUSEA AND/OR VOMITING Last administered on 05/03/17 23:24; Admin Dose 4 MG; Start 04/29/17 at 20:00 Nitroglycerin (Nitroglycerin (Sl Tab) 0.4 Mg) 1 tab Q5M PRN SL CHEST PAIN; Start 04/29/17 at 20:00 Acetaminophen (Tylenol Liquid) 650 mg Q6H PRN PO PAIN LEVEL 1-3 OR FEVER; Start 04/29/17 at 20:00 Acetaminophen (Tylenol Tab) 650 mg Q6H PRN PO PAIN LEVEL 1-3 OR FEVER; Start at 20:00 Acetaminophen/ Hydrocodone Bitart ([place] (5/325)) 1 tab Q6H PRN PO PAIN LEVEL 4 -6; Start 04/29/17 at 20:00 Zolpidem Tartrate (Ambien) 5 mg QHS PRN PO INSOMNIA; Start 04/29/17 at 20:00 Docusate Sodium (Colace) 100 mg Q12H PRN PO CONSTIPATION; Start 04/29/17 at 20: 00 Bisacodyl (Dulcolax) 5 mg DAILY PRN PO CONSTIPATION; Start 04/29/17 at 20:00 Aspirin 325 mg 325 mg DAILY PO Last administered on 05/03/17 09:46; Admin Dose 325 MG; Start 04/30/17 at 09:00 Vasopressin 60 unit/Dextrose 60 ml @ 1.2 mls/hr Q12H IV Last administered on 01:07; Admin Dose 2.4 MLS/HR; Start 04/30/17 at 13:00 Phenylephrine HCl 80 mg/Dextrose 250 ml @ 18.75 mls/ hr TITRATE IV Last administered on 05/04/17 09:57; Admin Dose 31.87 MLS/HR; Start 04/30/17 at 18: 00 Norepinephrine/ Dextrose (Levophed/D5W) 250 ml @ 0.46 mls/hr TITRATE IV Last administered on 05/06/17 05:15; Admin Dose 0.46 MLS/HR; Start 04/30/17 at 18:00 Pantoprazole (Protonix Iv) 40 mg BID@06,18 IV Last administered on 05/06/17 17 :37; Admin Dose 40 MG; Start 05/02/17 at 18:00 Diphenhydramine HCl 25 mg 25 mg Q4H PRN IV ITCHING Last administered on 16:41; Admin Dose 25 MG; Start 05/02/17 at 08:30 Cefepime HCl 50 ml @ 100 mls/hr Q24H IVPB Last administered on 05/06/17 12:06 ; Admin Dose 100 MLS/HR; Start 05/02/17 at 11:00 Dobutamine HCl/ Dextrose 250 ml @ 4.755 mls/ hr TITRATE IV Last administered on 05/06/17 05:23; Admin Dose 19.02 MLS/HR; Start 05/03/17 at 09:30 Miscellaneous Information 1 ea NOTE XX ; Start 05/03/17 at 13:00 Glucose (Glutose) 15 gm Q15M PRN PO DECREASED GLUCOSE; Start 05/03/17 at 12:45 Glucose (Glutose) 22.5 gm Q15M PRN PO DECREASED GLUCOSE; Start 05/03/17 at 12: 45 Dextrose (D50w Syringe) 25 ml Q15M PRN IV DECREASED GLUCOSE Last administered on 05/03/17 12:48; Admin Dose 25 ML; Start 05/03/17 at 12:45 Dextrose (D50w Syringe) 50 ml Q15M PRN IV DECREASED GLUCOSE; Start 05/03/17 at 12:46 Glucagon (Glucagen) 1 mg Q15M PRN IM DECREASED GLUCOSE; Start 05/03/17 at 12:46 Glucose 15 gm 15 gm Q15M PRN BUCCAL DECREASED GLUCOSE; Start 05/03/17 at 12:46 Midazolam HCl 50 ml @ 1 mls/hr TITRATE IV Last administered on 05/06/17 15:46 ; Admin Dose 2 MLS/HR; Start 05/03/17 at 15:00 Dextrose/Sodium Chloride 1,000 ml @ 20 mls/hr Q24H IV Last administered on 16:27; Admin Dose 20 MLS/HR; Start 05/03/17 at 16:00 Amiodarone HCl/ Dextrose (Cordarone Iv/ D5W) 500 ml @ 16.66 mls/ hr Q24H IV Last administered on 05/06/17 04:01; Admin Dose 16.66 MLS/HR; Start 05/03/17 at 21:00 Metoclopramide HCl (Reglan) 5 mg Q6 IV Last administered on 05/06/17 17:37; Admin Dose 5 MG; Start 05/04/17 at 12:00 Nystatin (Nystatin Susp) 5 ml QID PO Last administered on 05/06/17 17:37; Admin Dose 5 ML; Start 05/04/17 at 13:00 Methylprednisolone Sodium Succinate 40 mg 40 mg DAILY IV Last administered on 09:08; Admin Dose 40 MG; Start 05/05/17 at 09:00 Fentanyl (Sublimaze) 100 ml @ 5 mls/hr TITRATE IV Last administered on 17:20; Admin Dose 5 MLS/HR; Start 05/06/17 at 08:30 Amiodarone HCl (Cordarone) 400 mg BID NGT Last administered on 05/06/17 17:54 ; Admin Dose 400 MG; Start 05/06/17 at 18:00 KEVIN PICKERING MD May 06, 2017 19:03
[2017-05-07] VITALS (75 sets, daily range): BP systolic 74–130; BP diastolic 37–102; PULSE 61–99; RESP 0–20
[2017-05-07] MEDS: VASOPRESSIN 60 UNIT in DEXTROSE 5% 57 ML IV SCH ×2 (00:47→12:59)
[2017-05-07] MEDS: ALBUTEROL 18 GM INHALER INH SCH ×4 (01:24→19:21)
[2017-05-07] MEDS: IPRATROPIUM (HFA) 12.9 GM INHALER INH SCH ×4 (01:24→19:21)
[2017-05-07] MEDS: MIDAZOLAM (DRIP) 50 mg/50 mL 50 ML IV SCH ×2 (04:35→23:45)
[2017-05-07] MEDS: METOCLOPRAMIDE 10 MG INJ IV SCH ×4 (05:17→23:33)
[2017-05-07] MEDS: PANTOPRAZOLE 40 MG INJ IV SCH ×2 (05:17→17:57)
[2017-05-07] MEDS: DOBUTamine/D5W 2 MG/ML DRIP 250 ML IV SCH (05:21)
[2017-05-07 05:58] LABS: PLATELET COUNT 61 10^3/UL (140-415)
[2017-05-07 05:59] LABS: ABNORMAL IP MESSAGE 1; HEMATOCRIT 26.6 % (42.0-52.0); HEMOGLOBIN 8.9 g/dl (14.0-18.0); MEAN CORPUSCULAR HEMOGLOBIN 33.8 pg (29.0-33.0); MEAN CORPUSCULAR HGB CONC 33.5 g/dl (32.0-37.0); MEAN CORPUSCULAR VOLUME 101.1 fl (82.0-101.0); MEAN PLATELET VOLUME 12.1 fl (7.4-10.4); NUCLEATED RED BLOOD CELLS% 0.2 /100WBC (0.0-0.0); PLATELET COUNT 63 10^3/UL (140-415); POSITIVE DIFF @See below; RED BLOOD COUNT 2.63 10^6/ul (4.70-6.10); RED CELL DISTRIBUTION WIDTH 15.5 % (11.5-14.5); WHITE BLOOD COUNT 19.1 10^3/ul (4.8-10.8)
[2017-05-07 06:05] LABS: INR 1.23; PROTIME 15.6 Sec (12.2-14.2); PT RATIO 1.2
[2017-05-07 06:06] LABS: PARTIAL THROMBOPLASTIN TIME 34.3 Sec (25.0-35.0); THROMBIN TIME 18.4 SEC (13.8-19.1)
[2017-05-07 06:36] LABS: ALBUMIN 2.6 g/dl (3.3-4.9); ALBUMIN/GLOBULIN RATIO 1.04; BILIRUBIN,DIRECT 0.9 mg/dl (0.00-0.20); BILIRUBIN,INDIRECT 0.3 mg/dl (0-1.1); BILIRUBIN,TOTAL 1.2 mg/dl (0.2-1.3); CALCIUM 6.9 mg/dl (8.4-10.2); CREATININE 5.8 mg/dl (0.61-1.24); POTASSIUM 4.3 mmol/L (3.5-5.1); TOTAL PROTEIN 5.1 g/dl (6.1-8.1)
[2017-05-07 07:00] LABS: D-DIMER > 10000.00 ng/ml (<460)
[2017-05-07 07:08] LABS: FIBRIN SPLIT PRODUCT >40 and <80 ug/ml (<10)
--- NOTE | 2017-05-07 07:28 | RADRPT ---
PROCEDURE: XR Chest. CLINICAL INDICATION: Shortness of breath. TECHNIQUE: Single frontal view. COMPARISON: 05/06/2017. FINDINGS: The endotracheal tube remains in satisfactory position. The nasogastric tube should be advanced appr oximately 10 cm as the tip is at the gastroesophageal junction. There is air space disease at the le ft lung base consistent with atelectasis or pneumonia, unchanged. Mild pulmonary edema is unchanged. There is a calcified granuloma in the right mid lung zone laterally. The heart is enlarged. There is calcification in the aorta consistent with atherosclerosis. There ar e sternal wires and mediastinal clips. There is no pleural effusion. There is no pneumothorax. IMPRESSION: 1. The nasogastric tube should be advanced approximately 10 cm as the tip is at the gastroesophagea l junction. 2. Mild pulmonary edema, unchanged. 3. Cardiomegaly. RPTAT: QQ .Solmoon Mulligan MD, Date Time Electronically viewed and signed by .Solomon Mulligan MD, on 05/07/2017 07:28 .R/
[2017-05-07 09:11] LABS: AADO2 Arterial 134.6 mmHg (7.0-24.0); Allen Test ACCEPTAB; Arterial Base Excess 0.6 mmol/L (-3.0-3); Arterial COHb 0.5 % (0.0-3.0); Arterial Fraction of Oxyhgb 97.1 % (93.0-99.0); Arterial HCO3 25.5 mmol/L (22.0-26.0); Arterial MetHb 0.2 % (0.0-1.5); Arterial Total Hemglobin 11.1 g/dl (12.0-18.0); MODE VENT - AC
[2017-05-07 09:23] LABS: ANISOCYTOSIS 2+ (0-0); MONOCYTES % (M) 6 % (0-11); OVALOCYTES 1+ (0-0); PLASMA CELLS #M 0.1 10^3/ul (0.0-0.0); PLASMAC%(M) 1 % (0); PLATELET ESTIMATE DECREASED; POIKILOCYTOSIS 1+ (0-0); TOXIC GRANULATION 1+ (0-0)
--- NOTE | 2017-05-07 10:54 | CONS ---
Date/Time of Note Date/Time of Note DATE: 05/07/17 TIME: 10:50 Assessment/Plan Assessment/Plan Additional Assessment/Plan Ventilator setting; AC of 16, tidal volume 500, PEEP of 5, 40% FiO2. Patient currently on dobutamine drip at 3 mics per kilogram per minute, Versed 2 mg/h. Getting hemodialysis at bedside. Chest x-ray was reviewed from today which is showing improving pulmonary edema. Assessment and recommendations; 1. Patient admitted with severe shock due to decompensated congestive heart failure. 2. Bilateral pneumonia. 3. Chronic renal failure, on hemodialysis. 4. Improving shock. 5. Severe thrombocytopenia. 6. Upper GI bleed with interval resolution. 7. Anemia. 8. Prior CABG. Continue current treatment. Due to ongoing pulmonary edema patient is not in a position to be weaned off from mechanical ventilation as of yet. We will attempt a trial in 24 hours. I did have a detailed discussion with the patient's family at bedside and answered all their questions. Prognosis still remains quite guarded on account of multiorgan failure. 35 minutes of critical care time was spent evaluating the patient. Consultation Date/Type/Reason Admit Date/Time Apr 29, 2017 at 19:31 Initial Consult Date 05/01/17 Type of Consultation: Pulmonary/critical care Referring Provider: YENNY WINSTON MD 24 HR Interval Summary Free Text/Dictation Patient's condition remains critical. But has improved somewhat over the last 48-72 hours. Patient requiring much less pressor support now. General exam; elderly male, arousable. Orally intubated. Currently in no distress. Exam/Review of Systems Vital Signs Vitals Vital Signs Date Time Temp Pulse Resp B/P Pulse Ox O2 Delivery O2 Flow Rate FiO2 05/07/17 10:30 82 17 130/55 99 Mechanical Ventilator 05/07/17 08:00 98.0 05/07/17 08:00 40 Intake and Output 05/06/17 05/06/17 05/07/17 15:00 23:00 07:00 Intake Total 662.286 ml 833.020 ml 275.922 ml Balance 662.286 ml 833.020 ml 275.922 ml Exam HEENT exam; supple neck, positive JVD. No lymphadenopathy. Midline trachea. No thyromegaly. Patient has bilateral intraocular lens implants. Chest exam; diminished but clear breath sounds. There is a well-healed sternal scar. S1-S2 audible, no murmurs. Regular rhythm. Abdomen exam; soft, no organomegaly. Bowel sounds audible. Nondistended. Extremity exam; no peripheral edema. DAIRY TECHNOLOGIST exam; patient is mildly sedated but arousable. Results Result Diagram: 05/07/17 0500 05/07/17 0500 Results 24 hrs Laboratory Tests Test 05/06/17 13:50 05/07/17 05:00 05/07/17 05:20 05/07/17 07:00 Digoxin Level 1.5 White Blood Count 19.1 H Red Blood Count 2.63 L Hemoglobin 8.9 L Hematocrit 26.6 L Mean Corpuscular Volume 101.1 H Mean Corpuscular Hemoglobin 33.8 H Mean Corpuscular Hemoglobin Concent 33.5 Red Cell Distribution Width 15.5 H Platelet Count 61 #L Mean Platelet Volume 12.1 H Neutrophils % Segmented Neutrophils % (Manual) 92 H Band Neutrophils % (Manual) 1 Lymphocytes % Monocytes % Monocytes % (Manual) 6 Eosinophils % Basophils % Plasma Cells % (manual) 1 Nucleated Red Blood Cells % 0.2 H Neutrophils # Neutrophils # (Manual) 17.6 H Band Neutrophils # 0.1 Lymphocytes # Monocytes # Absolute Monocytes (Manual) 1.1 H Eosinophils # Basophils # Plasma Cells # (manual) 0.1 H Nucleated Red Blood Cells # Toxic Granulation 1+ Platelet Estimate DECREASED Poikilocytosis 1+ Anisocytosis 2+ Macrocytosis 1+ Ovalocytes 1+ Prothrombin Time 15.6 H Prothrombin Time Ratio 1.2 INR International Normalized Ratio 1.23 Activated Partial Thromboplast Time 34.3 Thrombin Time 18.4 Fibrinogen 275.0 # Plasma Fibrin Degradation Products >40 and <80 H D-Dimer > 17852.00 H Sodium Level 136 Potassium Level 4.3 Chloride Level 98 Carbon Dioxide Level 27 Anion Gap 15 Blood Urea Nitrogen 73 H Creatinine 5.80 H Glucose Level 96 Calcium Level 6.9 L Magnesium Level 2.3 Total Bilirubin 1.2 Direct Bilirubin 0.90 #H Indirect Bilirubin 0.3 Aspartate Amino Transf (AST/SGOT) 45 Alanine Aminotransferase (ALT/SGPT) 335 H Alkaline Phosphatase 116 Troponin I 7.710 *H Total Protein 5.1 L Albumin 2.6 L Globulin 2.50 Albumin/Globulin Ratio 1.04 Lab Scanned Report BLOOD TRANSFUSION Blood Gas Specimen Source Blood arterial Arterial Blood Date Drawn 05/07/2017 8:50:41 AM Arterial Blood pH (Temp corrected) 7.400 Arterial Blood pCO2 (Temp correct) 42.1 Arterial Blood pO2 (Temp corrected) 102.2 H Arterial Blood HCO3 25.5 Arterial Blood Base Excess 0.6 Arterial Blood Oxygen Saturation 97.8 Hunter Test ACCEPTAB Arterial Blood Gas Puncture Site Left Radial Arterial Blood Carboxyhemoglobin 0.5 Arterial Blood Methemoglobin 0.2 Blood Gas A-a O2 Differential 134.6 H Oxyhemoglobin Percent 97.1 Total Hemoglobin 11.1 L Blood Gas Temperature 37.0 Blood Gas Respiration Rate 16.0 Blood Gas Actual Respiration Rate 19 Blood Gas Modality VENT - AC FiO2 40.0 Blood Gas Tidal Volume 500.0 Blood Gas Low PEEP Setting 5.0 Blood Gas Notified Whom DT Blood Gas Notified Time 05/07/2017 9:10:51 AM Medications Medications Current Medications Folic Acid (Folic Acid) 1 mg DAILY PO Last administered on 05/06/17 09:08; Admin Dose 1 MG; Start 04/30/17 at 09:00 Ondansetron HCl (Zofran Inj) 4 mg Q6H PRN IV NAUSEA AND/OR VOMITING Last administered on 05/03/17 23:24; Admin Dose 4 MG; Start 04/29/17 at 20:00 Nitroglycerin (Nitroglycerin (Sl Tab) 0.4 Mg) 1 tab Q5M PRN SL CHEST PAIN; Start 04/29/17 at 20:00 Acetaminophen (Tylenol Liquid) 650 mg Q6H PRN PO PAIN LEVEL 1-3 OR FEVER; Start 04/29/17 at 20:00 Acetaminophen (Tylenol Tab) 650 mg Q6H PRN PO PAIN LEVEL 1-3 OR FEVER; Start at 20:00 Acetaminophen/ Hydrocodone Bitart ([place] (5/325)) 1 tab Q6H PRN PO PAIN LEVEL 4 -6; Start 04/29/17 at 20:00 Zolpidem Tartrate (Ambien) 5 mg QHS PRN PO INSOMNIA; Start 04/29/17 at 20:00 Docusate Sodium (Colace) 100 mg Q12H PRN PO CONSTIPATION; Start 04/29/17 at 20: 00 Bisacodyl (Dulcolax) 5 mg DAILY PRN PO CONSTIPATION; Start 04/29/17 at 20:00 Aspirin 325 mg 325 mg DAILY PO Last administered on 05/03/17 09:46; Admin Dose 325 MG; Start 04/30/17 at 09:00 Vasopressin 60 unit/Dextrose 60 ml @ 1.2 mls/hr Q12H IV Last administered on 01:07; Admin Dose 2.4 MLS/HR; Start 04/30/17 at 13:00 Phenylephrine HCl 80 mg/Dextrose 250 ml @ 18.75 mls/ hr TITRATE IV Last administered on 05/04/17 09:57; Admin Dose 31.87 MLS/HR; Start 04/30/17 at 18: 00 Norepinephrine/ Dextrose (Levophed/D5W) 250 ml @ 0.46 mls/hr TITRATE IV Last administered on 05/06/17 05:15; Admin Dose 0.46 MLS/HR; Start 04/30/17 at 18:00 Pantoprazole (Protonix Iv) 40 mg BID@06,18 IV Last administered on 05/07/17 05 :17; Admin Dose 40 MG; Start 05/02/17 at 18:00 Diphenhydramine HCl 25 mg 25 mg Q4H PRN IV ITCHING Last administered on 16:41; Admin Dose 25 MG; Start 05/02/17 at 08:30 Cefepime HCl 50 ml @ 100 mls/hr Q24H IVPB Last administered on 05/06/17 12:06 ; Admin Dose 100 MLS/HR; Start 05/02/17 at 11:00 Dobutamine HCl/ Dextrose 250 ml @ 4.755 mls/ hr TITRATE IV Last administered on 05/07/17 05:21; Admin Dose 3.804 MLS/HR; Start 05/03/17 at 09:30 Miscellaneous Information 1 ea NOTE XX ; Start 05/03/17 at 13:00 Glucose (Glutose) 15 gm Q15M PRN PO DECREASED GLUCOSE; Start 05/03/17 at 12:45 Glucose (Glutose) 22.5 gm Q15M PRN PO DECREASED GLUCOSE; Start 05/03/17 at 12: 45 Dextrose (D50w Syringe) 25 ml Q15M PRN IV DECREASED GLUCOSE Last administered on 05/03/17 12:48; Admin Dose 25 ML; Start 05/03/17 at 12:45 Dextrose (D50w Syringe) 50 ml Q15M PRN IV DECREASED GLUCOSE; Start 05/03/17 at 12:46 Glucagon (Glucagen) 1 mg Q15M PRN IM DECREASED GLUCOSE; Start 05/03/17 at 12:46 Glucose 15 gm 15 gm Q15M PRN BUCCAL DECREASED GLUCOSE; Start 05/03/17 at 12:46 Midazolam HCl 50 ml @ 1 mls/hr TITRATE IV Last administered on 05/07/17 04:35 ; Admin Dose 2 MLS/HR; Start 05/03/17 at 15:00 Dextrose/Sodium Chloride (D5-NS) 1,000 ml @ 20 mls/hr Q24H IV Last administered on 05/06/17 16:27; Admin Dose 20 MLS/HR; Start 05/03/17 at 16:00 Metoclopramide HCl (Reglan) 5 mg Q6 IV Last administered on 05/07/17 05:17; Admin Dose 5 MG; Start 05/04/17 at 12:00 Nystatin (Nystatin Susp) 5 ml QID PO Last administered on 05/06/17 21:33; Admin Dose 5 ML; Start 05/04/17 at 13:00 Methylprednisolone Sodium Succinate 40 mg 40 mg DAILY IV Last administered on 09:08; Admin Dose 40 MG; Start 05/05/17 at 09:00 Fentanyl (Sublimaze) 100 ml @ 5 mls/hr TITRATE IV Last administered on 17:20; Admin Dose 5 MLS/HR; Start 05/06/17 at 08:30 Amiodarone HCl (Cordarone) 400 mg BID NGT Last administered on 05/06/17 21:33 ; Admin Dose 400 MG; Start 05/06/17 at 18:00 CHARLES EMMANUEL May 07, 2017 10:54
[2017-05-07] MEDS: METHYLPREDNISOLONE 40 MG INJ IV SCH (11:26)
[2017-05-07] MEDS: ASPIRIN 325 MG TAB PO SCH (11:26)
[2017-05-07] MEDS: CEFEPIME 1GM/50 ML (PMX) 50 ML IVPB SCH (11:26)
[2017-05-07] MEDS: FOLIC ACID 1 MG TAB PO SCH (11:26)
[2017-05-07] MEDS: NYSTATIN SUSP 5 ML CUP PO SCH ×4 (11:26→21:21)
[2017-05-07] MEDS: AMIODARONE 200 MG TAB NGT SCH ×2 (11:27→21:21)
--- NOTE | 2017-05-07 12:32 | PN ---
Date/Time of Note Date/Time of Note DATE: 05/07/17 TIME: 12:27 Assessment/Plan VTE Prophylaxis VTE Prophylaxis Intervention: SCD's Lines/Catheters IV Catheter Type (from Nrs): Central Line Central line still needed: Yes Urinary Cath still in place: No Assessment/Plan Chief Complaint/Hosp Course 1. cardiogenic shock 2. Dysphagia. 3. History of head and neck or laryngeal cancer. 4. 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 5. History of coronary artery disease, status post coronary artery bypass grafting. 6. hypertension 7. Acute on chronic heart failure with EF 30% 8. Shock liver improving LFTs with improving ischemia 9. Lactic acidosis 10. Respiratory failure on Vent 11. Anemia S/P 2 units PRBC 12. Right arm DVT but cannot be on anticoagulation due to thrombocytopenia Problems: Assessment/Plan 1. Continue critical care and vasopressive support 2. continue a.b 3.Continue HD 4. Pt is remained intubated Subjective 24 Hr Interval Summary Subjective hx not possible: pt critical status, other (orally intubated) Exam/Review of Systems Vital Signs Vitals Vital Signs Date Time Temp Pulse Resp B/P Pulse Ox O2 Delivery O2 Flow Rate FiO2 05/07/17 10:30 82 17 130/55 99 Mechanical Ventilator 05/07/17 08:00 98.0 05/07/17 08:00 40 Intake and Output 05/06/17 05/06/17 05/07/17 15:00 23:00 07:00 Intake Total 662.286 ml 833.020 ml 275.922 ml Balance 662.286 ml 833.020 ml 275.922 ml Exam Eyes: nl conjunctiva ENMT: nl external ears & nose Respiratory: diminished breath sounds Cardiovascular: irregular rhythm Gastrointestinal: soft Genitourinary - Male: nl scrotum (on dobutamine) Results Result Diagram: 05/07/17 0500 05/07/17 0500 Results 24 hrs Laboratory Tests Test 05/06/17 13:50 05/07/17 05:00 05/07/17 05:20 05/07/17 07:00 Digoxin Level 1.5 White Blood Count 19.1 H Red Blood Count 2.63 L Hemoglobin 8.9 L Hematocrit 26.6 L Mean Corpuscular Volume 101.1 H Mean Corpuscular Hemoglobin 33.8 H Mean Corpuscular Hemoglobin Concent 33.5 Red Cell Distribution Width 15.5 H Platelet Count 61 #L Mean Platelet Volume 12.1 H Neutrophils % Segmented Neutrophils % (Manual) 92 H Band Neutrophils % (Manual) 1 Lymphocytes % Monocytes % Monocytes % (Manual) 6 Eosinophils % Basophils % Plasma Cells % (manual) 1 Nucleated Red Blood Cells % 0.2 H Neutrophils # Neutrophils # (Manual) 17.6 H Band Neutrophils # 0.1 Lymphocytes # Monocytes # Absolute Monocytes (Manual) 1.1 H Eosinophils # Basophils # Plasma Cells # (manual) 0.1 H Nucleated Red Blood Cells # Toxic Granulation 1+ Platelet Estimate DECREASED Poikilocytosis 1+ Anisocytosis 2+ Macrocytosis 1+ Ovalocytes 1+ Prothrombin Time 15.6 H Prothrombin Time Ratio 1.2 INR International Normalized Ratio 1.23 Activated Partial Thromboplast Time 34.3 Thrombin Time 18.4 Fibrinogen 275.0 # Plasma Fibrin Degradation Products >40 and <80 H D-Dimer > 97179.00 H Sodium Level 136 Potassium Level 4.3 Chloride Level 98 Carbon Dioxide Level 27 Anion Gap 15 Blood Urea Nitrogen 73 H Creatinine 5.80 H Glucose Level 96 Calcium Level 6.9 L Magnesium Level 2.3 Total Bilirubin 1.2 Direct Bilirubin 0.90 #H Indirect Bilirubin 0.3 Aspartate Amino Transf (AST/SGOT) 45 Alanine Aminotransferase (ALT/SGPT) 335 H Alkaline Phosphatase 116 Troponin I 7.710 *H Total Protein 5.1 L Albumin 2.6 L Globulin 2.50 Albumin/Globulin Ratio 1.04 Lab Scanned Report BLOOD TRANSFUSION Blood Gas Specimen Source Blood arterial Arterial Blood Date Drawn 05/07/2017 8:50:41 AM Arterial Blood pH (Temp corrected) 7.400 Arterial Blood pCO2 (Temp correct) 42.1 Arterial Blood pO2 (Temp corrected) 102.2 H Arterial Blood HCO3 25.5 Arterial Blood Base Excess 0.6 Arterial Blood Oxygen Saturation 97.8 Hunter Test ACCEPTAB Arterial Blood Gas Puncture Site Left Radial Arterial Blood Carboxyhemoglobin 0.5 Arterial Blood Methemoglobin 0.2 Blood Gas A-a O2 Differential 134.6 H Oxyhemoglobin Percent 97.1 Total Hemoglobin 11.1 L Blood Gas Temperature 37.0 Blood Gas Respiration Rate 16.0 Blood Gas Actual Respiration Rate 19 Blood Gas Modality VENT - AC FiO2 40.0 Blood Gas Tidal Volume 500.0 Blood Gas Low PEEP Setting 5.0 Blood Gas Notified Whom DT Blood Gas Notified Time 05/07/2017 9:10:51 AM Medications Medications Current Medications Folic Acid (Folic Acid) 1 mg DAILY PO Last administered on 05/07/17 11:26; Admin Dose 1 MG; Start 04/30/17 at 09:00 Ondansetron HCl (Zofran Inj) 4 mg Q6H PRN IV NAUSEA AND/OR VOMITING Last administered on 05/03/17 23:24; Admin Dose 4 MG; Start 04/29/17 at 20:00 Nitroglycerin (Nitroglycerin (Sl Tab) 0.4 Mg) 1 tab Q5M PRN SL CHEST PAIN; Start 04/29/17 at 20:00 Acetaminophen (Tylenol Liquid) 650 mg Q6H PRN PO PAIN LEVEL 1-3 OR FEVER; Start 04/29/17 at 20:00 Acetaminophen (Tylenol Tab) 650 mg Q6H PRN PO PAIN LEVEL 1-3 OR FEVER; Start at 20:00 Acetaminophen/ Hydrocodone Bitart ([place] (5/325)) 1 tab Q6H PRN PO PAIN LEVEL 4 -6; Start 04/29/17 at 20:00 Zolpidem Tartrate (Ambien) 5 mg QHS PRN PO INSOMNIA; Start 04/29/17 at 20:00 Docusate Sodium (Colace) 100 mg Q12H PRN PO CONSTIPATION; Start 04/29/17 at 20: 00 Bisacodyl (Dulcolax) 5 mg DAILY PRN PO CONSTIPATION; Start 04/29/17 at 20:00 Aspirin 325 mg 325 mg DAILY PO Last administered on 05/07/17 11:26; Admin Dose 325 MG; Start 04/30/17 at 09:00 Vasopressin 60 unit/Dextrose 60 ml @ 1.2 mls/hr Q12H IV Last administered on 01:07; Admin Dose 2.4 MLS/HR; Start 04/30/17 at 13:00 Phenylephrine HCl 80 mg/Dextrose 250 ml @ 18.75 mls/ hr TITRATE IV Last administered on 05/04/17 09:57; Admin Dose 31.87 MLS/HR; Start 04/30/17 at 18: 00 Norepinephrine/ Dextrose (Levophed/D5W) 250 ml @ 0.46 mls/hr TITRATE IV Last administered on 05/06/17 05:15; Admin Dose 0.46 MLS/HR; Start 04/30/17 at 18:00 Pantoprazole (Protonix Iv) 40 mg BID@06,18 IV Last administered on 05/07/17 05 :17; Admin Dose 40 MG; Start 05/02/17 at 18:00 Diphenhydramine HCl 25 mg 25 mg Q4H PRN IV ITCHING Last administered on 16:41; Admin Dose 25 MG; Start 05/02/17 at 08:30 Cefepime HCl 50 ml @ 100 mls/hr Q24H IVPB Last administered on 05/07/17 11:26 ; Admin Dose 100 MLS/HR; Start 05/02/17 at 11:00 Dobutamine HCl/ Dextrose 250 ml @ 4.755 mls/ hr TITRATE IV Last administered on 05/07/17 05:21; Admin Dose 3.804 MLS/HR; Start 05/03/17 at 09:30 Miscellaneous Information 1 ea NOTE XX ; Start 05/03/17 at 13:00 Glucose (Glutose) 15 gm Q15M PRN PO DECREASED GLUCOSE; Start 05/03/17 at 12:45 Glucose (Glutose) 22.5 gm Q15M PRN PO DECREASED GLUCOSE; Start 05/03/17 at 12: 45 Dextrose (D50w Syringe) 25 ml Q15M PRN IV DECREASED GLUCOSE Last administered on 05/03/17 12:48; Admin Dose 25 ML; Start 05/03/17 at 12:45 Dextrose (D50w Syringe) 50 ml Q15M PRN IV DECREASED GLUCOSE; Start 05/03/17 at 12:46 Glucagon (Glucagen) 1 mg Q15M PRN IM DECREASED GLUCOSE; Start 05/03/17 at 12:46 Glucose 15 gm 15 gm Q15M PRN BUCCAL DECREASED GLUCOSE; Start 05/03/17 at 12:46 Midazolam HCl 50 ml @ 1 mls/hr TITRATE IV Last administered on 05/07/17 04:35 ; Admin Dose 2 MLS/HR; Start 05/03/17 at 15:00 Dextrose/Sodium Chloride (D5-NS) 1,000 ml @ 20 mls/hr Q24H IV Last administered on 05/06/17 16:27; Admin Dose 20 MLS/HR; Start 05/03/17 at 16:00 Metoclopramide HCl (Reglan) 5 mg Q6 IV Last administered on 05/07/17 05:17; Admin Dose 5 MG; Start 05/04/17 at 12:00 Nystatin (Nystatin Susp) 5 ml QID PO Last administered on 05/07/17 11:26; Admin Dose 5 ML; Start 05/04/17 at 13:00 Methylprednisolone Sodium Succinate 40 mg 40 mg DAILY IV Last administered on 11:26; Admin Dose 40 MG; Start 05/05/17 at 09:00 Fentanyl (Sublimaze) 100 ml @ 5 mls/hr TITRATE IV Last administered on 17:20; Admin Dose 5 MLS/HR; Start 05/06/17 at 08:30 Amiodarone HCl (Cordarone) 400 mg BID NGT Last administered on 05/07/17 11:27 ; Admin Dose 400 MG; Start 05/06/17 at 18:00 NADIA STRONG May 07, 2017 12:32
[2017-05-07] MEDS ORDERED: OCULAR LUBRICANT 3.5 GM OPH OINT BOTH EYES PRN (13:00)
[2017-05-07] MEDS ORDERED: PENDING SANTYL ORDER FOR WOUND CARE XX PRN (13:30)
--- NOTE | 2017-05-07 13:46 | CONS ---
Date/Time of Note Date/Time of Note DATE: 05/07/17 TIME: 13:23 Assessment/Plan Assessment/Plan Additional Assessment/Plan 1.Acute VA-now downtrending cardiac enzymes without signs of ongoing myocardial necrosis 2.Shock-improving hemodynamics now only on inotropic therapy with dobutamine 3.VT-now in SR on amio 4.resp failure s/p intubation 5.renal failure-on HD 6. Leukocytosis 7. Thrombocytopenia-severe ongoing 8. Shock liver 9. CHF-systolic acute on chronic likely with EF 20% by echo this admit Exam/Review of Systems Vital Signs Vitals Vital Signs Date Time Temp Pulse Resp B/P Pulse Ox O2 Delivery O2 Flow Rate FiO2 05/07/17 10:30 82 17 130/55 99 Mechanical Ventilator 05/07/17 08:00 98.0 05/07/17 08:00 40 Intake and Output 05/06/17 05/06/17 05/07/17 15:00 23:00 07:00 Intake Total 662.286 ml 833.020 ml 275.922 ml Balance 662.286 ml 833.020 ml 275.922 ml Exam Intubated VSS RSR Lungs clear Abd: B9 Ext: No edema Results Result Diagram: 05/07/17 0500 05/07/17 0500 Results 24 hrs Laboratory Tests Test 05/06/17 13:50 05/07/17 05:00 05/07/17 05:20 05/07/17 07:00 Digoxin Level 1.5 White Blood Count 19.1 H Red Blood Count 2.63 L Hemoglobin 8.9 L Hematocrit 26.6 L Mean Corpuscular Volume 101.1 H Mean Corpuscular Hemoglobin 33.8 H Mean Corpuscular Hemoglobin Concent 33.5 Red Cell Distribution Width 15.5 H Platelet Count 61 #L Mean Platelet Volume 12.1 H Neutrophils % Segmented Neutrophils % (Manual) 92 H Band Neutrophils % (Manual) 1 Lymphocytes % Monocytes % Monocytes % (Manual) 6 Eosinophils % Basophils % Plasma Cells % (manual) 1 Nucleated Red Blood Cells % 0.2 H Neutrophils # Neutrophils # (Manual) 17.6 H Band Neutrophils # 0.1 Lymphocytes # Monocytes # Absolute Monocytes (Manual) 1.1 H Eosinophils # Basophils # Plasma Cells # (manual) 0.1 H Nucleated Red Blood Cells # Toxic Granulation 1+ Platelet Estimate DECREASED Poikilocytosis 1+ Anisocytosis 2+ Macrocytosis 1+ Ovalocytes 1+ Prothrombin Time 15.6 H Prothrombin Time Ratio 1.2 INR International Normalized Ratio 1.23 Activated Partial Thromboplast Time 34.3 Thrombin Time 18.4 Fibrinogen 275.0 # Plasma Fibrin Degradation Products >40 and <80 H D-Dimer > 47764.00 H Sodium Level 136 Potassium Level 4.3 Chloride Level 98 Carbon Dioxide Level 27 Anion Gap 15 Blood Urea Nitrogen 73 H Creatinine 5.80 H Glucose Level 96 Calcium Level 6.9 L Magnesium Level 2.3 Total Bilirubin 1.2 Direct Bilirubin 0.90 #H Indirect Bilirubin 0.3 Aspartate Amino Transf (AST/SGOT) 45 Alanine Aminotransferase (ALT/SGPT) 335 H Alkaline Phosphatase 116 Troponin I 7.710 *H Total Protein 5.1 L Albumin 2.6 L Globulin 2.50 Albumin/Globulin Ratio 1.04 Lab Scanned Report BLOOD TRANSFUSION Blood Gas Specimen Source Blood arterial Arterial Blood Date Drawn 05/07/2017 8:50:41 AM Arterial Blood pH (Temp corrected) 7.400 Arterial Blood pCO2 (Temp correct) 42.1 Arterial Blood pO2 (Temp corrected) 102.2 H Arterial Blood HCO3 25.5 Arterial Blood Base Excess 0.6 Arterial Blood Oxygen Saturation 97.8 Hunter Test ACCEPTAB Arterial Blood Gas Puncture Site Left Radial Arterial Blood Carboxyhemoglobin 0.5 Arterial Blood Methemoglobin 0.2 Blood Gas A-a O2 Differential 134.6 H Oxyhemoglobin Percent 97.1 Total Hemoglobin 11.1 L Blood Gas Temperature 37.0 Blood Gas Respiration Rate 16.0 Blood Gas Actual Respiration Rate 19 Blood Gas Modality VENT - AC FiO2 40.0 Blood Gas Tidal Volume 500.0 Blood Gas Low PEEP Setting 5.0 Blood Gas Notified Whom DT Blood Gas Notified Time 05/07/2017 9:10:51 AM Medications Medications Current Medications Folic Acid (Folic Acid) 1 mg DAILY PO Last administered on 05/07/17 11:26; Admin Dose 1 MG; Start 04/30/17 at 09:00 Ondansetron HCl (Zofran Inj) 4 mg Q6H PRN IV NAUSEA AND/OR VOMITING Last administered on 05/03/17 23:24; Admin Dose 4 MG; Start 04/29/17 at 20:00 Nitroglycerin (Nitroglycerin (Sl Tab) 0.4 Mg) 1 tab Q5M PRN SL CHEST PAIN; Start 04/29/17 at 20:00 Acetaminophen (Tylenol Liquid) 650 mg Q6H PRN PO PAIN LEVEL 1-3 OR FEVER; Start 04/29/17 at 20:00 Acetaminophen (Tylenol Tab) 650 mg Q6H PRN PO PAIN LEVEL 1-3 OR FEVER; Start at 20:00 Acetaminophen/ Hydrocodone Bitart ([place] (5/325)) 1 tab Q6H PRN PO PAIN LEVEL 4 -6; Start 04/29/17 at 20:00 Zolpidem Tartrate (Ambien) 5 mg QHS PRN PO INSOMNIA; Start 04/29/17 at 20:00 Docusate Sodium (Colace) 100 mg Q12H PRN PO CONSTIPATION; Start 04/29/17 at 20: 00 Bisacodyl (Dulcolax) 5 mg DAILY PRN PO CONSTIPATION; Start 04/29/17 at 20:00 Aspirin 325 mg 325 mg DAILY PO Last administered on 05/07/17 11:26; Admin Dose 325 MG; Start 04/30/17 at 09:00 Vasopressin 60 unit/Dextrose 60 ml @ 1.2 mls/hr Q12H IV Last administered on 01:07; Admin Dose 2.4 MLS/HR; Start 04/30/17 at 13:00 Phenylephrine HCl 80 mg/Dextrose 250 ml @ 18.75 mls/ hr TITRATE IV Last administered on 05/04/17 09:57; Admin Dose 31.87 MLS/HR; Start 04/30/17 at 18: 00 Norepinephrine/ Dextrose (Levophed/D5W) 250 ml @ 0.46 mls/hr TITRATE IV Last administered on 05/06/17 05:15; Admin Dose 0.46 MLS/HR; Start 04/30/17 at 18:00 Pantoprazole (Protonix Iv) 40 mg BID@06,18 IV Last administered on 05/07/17 05 :17; Admin Dose 40 MG; Start 05/02/17 at 18:00 Diphenhydramine HCl 25 mg 25 mg Q4H PRN IV ITCHING Last administered on 16:41; Admin Dose 25 MG; Start 05/02/17 at 08:30 Cefepime HCl 50 ml @ 100 mls/hr Q24H IVPB Last administered on 05/07/17 11:26 ; Admin Dose 100 MLS/HR; Start 05/02/17 at 11:00 Dobutamine HCl/ Dextrose 250 ml @ 4.755 mls/ hr TITRATE IV Last administered on 05/07/17 05:21; Admin Dose 3.804 MLS/HR; Start 05/03/17 at 09:30 Miscellaneous Information 1 ea NOTE XX ; Start 05/03/17 at 13:00 Glucose (Glutose) 15 gm Q15M PRN PO DECREASED GLUCOSE; Start 05/03/17 at 12:45 Glucose (Glutose) 22.5 gm Q15M PRN PO DECREASED GLUCOSE; Start 05/03/17 at 12: 45 Dextrose (D50w Syringe) 25 ml Q15M PRN IV DECREASED GLUCOSE Last administered on 05/03/17 12:48; Admin Dose 25 ML; Start 05/03/17 at 12:45 Dextrose (D50w Syringe) 50 ml Q15M PRN IV DECREASED GLUCOSE; Start 05/03/17 at 12:46 Glucagon (Glucagen) 1 mg Q15M PRN IM DECREASED GLUCOSE; Start 05/03/17 at 12:46 Glucose 15 gm 15 gm Q15M PRN BUCCAL DECREASED GLUCOSE; Start 05/03/17 at 12:46 Midazolam HCl 50 ml @ 1 mls/hr TITRATE IV Last administered on 05/07/17 04:35 ; Admin Dose 2 MLS/HR; Start 05/03/17 at 15:00 Dextrose/Sodium Chloride (D5-NS) 1,000 ml @ 20 mls/hr Q24H IV Last administered on 05/06/17 16:27; Admin Dose 20 MLS/HR; Start 05/03/17 at 16:00 Metoclopramide HCl (Reglan) 5 mg Q6 IV Last administered on 05/07/17 12:51; Admin Dose 5 MG; Start 05/04/17 at 12:00 Nystatin (Nystatin Susp) 5 ml QID PO Last administered on 05/07/17 11:26; Admin Dose 5 ML; Start 05/04/17 at 13:00 Methylprednisolone Sodium Succinate 40 mg 40 mg DAILY IV Last administered on 11:26; Admin Dose 40 MG; Start 05/05/17 at 09:00 Fentanyl (Sublimaze) 100 ml @ 5 mls/hr TITRATE IV Last administered on 17:20; Admin Dose 5 MLS/HR; Start 05/06/17 at 08:30 Amiodarone HCl (Cordarone) 400 mg BID NGT Last administered on 05/07/17 11:27 ; Admin Dose 400 MG; Start 05/06/17 at 18:00 Eye Lubricant ([place] Oint) 1 applic Q4 PRN BOTH EYES dryness; Start 05/07/17 at 13:00 Miscellaneous Information (Pending Santyl Order For Wound Care) This patient otto... PRN PRN XX WOUND CARE; Start 05/07/17 at 13:30 SHAYLA HI MD May 07, 2017 13:35
[2017-05-07] MEDS: DEXTROSE 5%-0.9% NACL 1,000 ML IV SCH (16:00)
--- NOTE | 2017-05-07 17:24 | CONS ---
Date/Time of Note Date/Time of Note DATE: 05/07/17 TIME: 17:22 Assessment/Plan Assessment/Plan Chief Complaint/Hosp Course This is a 87 y/o male with pmh of HTN, HLD, RF on HD, CAD and CABG x 20 yrs ago (1997) Presented to the hospital with VT at a rate of 220 bpm, with a RBBB and inferior axis. The pt required a shock and was sent to the ICU. Per lab notes, Trop was 30 on the day of admission. The pt later in the ICU, required to be intubated. The Echo was done yesterday, the pt has an EF of 30% with mild AI and Mild MR per biomedical instrument technician. The ECG did not reveal ST elevation. The family wants everything to be done. He is now on 4 pressors, Levophed, vasopressin, Sean and Dobutamine. The pt is now receiving HD and the BP is 86 systolic. He is on 100% FIO2. 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 05/02/2017 The patient is improving with the LFTs decreasing, the Trop trending down, the FIO2 is now at 50% instead of 100%, He is on 3 pressors and will wean off the pressors again. 05/03/2017 The pt is still on 3 pressors He is using less FIO2 at 40 % The pt will need an A line, attempted it, but could not pass the small wire. Will need kit from the medical lab specialist tomorrow the pt will need to start on Amiodarone drip for HR control and on Digoxin 0.5 mg IV x 1 only the pt will also then need to be slowly weaned off of the pressors. will check ABG in AM. 05/04/2017 the pt is in SR, at 77 bpm.The Amiodarone should be continued for now. No more VT or PVCs either The pt is now on two pressors and on 40 % FiO2 Has a right arm DVT and IJ thrombus Cannot be on Heparin because of thrombocythopenia and requiring platelt transfusion The pt will cont the med tx and hopefuly may be able to able to reduce to one pressor soon. 05/05/2017 The pt is slowly improving Once the pt is off of the drips, he may then be extubated The pt will also need a cath once stable. Will cont the Amiodarone for now and will follow up The nurse will try to titrate off the levophed. 05/06/2017 The pt is seen and examined The nurse is present The pt is improving The pt is only on 3mcg/kg/min of dobutamine and will most likely come off of this and the will be weaned off to extubate him The pt will be on PO amio soon. Then discontinue the IV amio 05/07/2017 The pt is on 2mcg/kg/min of dobutamine only Will stop the dobutamine soon and then will need an angiogram, then will extubate. Will follow up Problems: Consultation Date/Type/Reason Admit Date/Time Apr 29, 2017 at 19:31 Initial Consult Date 05/02/17 Type of Consultation: Pulmonary/critical care Reason for Consultation follow up on VT Referring Provider: YENNY WINSTON MD 24 HR Interval Summary Subjective hx not possible: pt critical Exam/Review of Systems Vital Signs Vitals Vital Signs Date Time Temp Pulse Resp B/P Pulse Ox O2 Delivery O2 Flow Rate FiO2 05/07/17 16:30 79 16 94/43 100 05/07/17 16:00 98.0 Mechanical Ventilator 05/07/17 15:30 40 Intake and Output 05/06/17 05/06/17 05/07/17 15:00 23:00 07:00 Intake Total 662.286 ml 833.020 ml 275.922 ml Balance 662.286 ml 833.020 ml 275.922 ml Results Result Diagram: 05/07/17 0500 05/07/17 0500 Results 24 hrs Laboratory Tests Test 05/07/17 05:00 05/07/17 05:20 05/07/17 07:00 White Blood Count 19.1 H Red Blood Count 2.63 L Hemoglobin 8.9 L Hematocrit 26.6 L Mean Corpuscular Volume 101.1 H Mean Corpuscular Hemoglobin 33.8 H Mean Corpuscular Hemoglobin Concent 33.5 Red Cell Distribution Width 15.5 H Platelet Count 61 #L Mean Platelet Volume 12.1 H Neutrophils % Segmented Neutrophils % (Manual) 92 H Band Neutrophils % (Manual) 1 Lymphocytes % Monocytes % Monocytes % (Manual) 6 Eosinophils % Basophils % Plasma Cells % (manual) 1 Nucleated Red Blood Cells % 0.2 H Neutrophils # Neutrophils # (Manual) 17.6 H Band Neutrophils # 0.1 Lymphocytes # Monocytes # Absolute Monocytes (Manual) 1.1 H Eosinophils # Basophils # Plasma Cells # (manual) 0.1 H Nucleated Red Blood Cells # Toxic Granulation 1+ Platelet Estimate DECREASED Poikilocytosis 1+ Anisocytosis 2+ Macrocytosis 1+ Ovalocytes 1+ Prothrombin Time 15.6 H Prothrombin Time Ratio 1.2 INR International Normalized Ratio 1.23 Activated Partial Thromboplast Time 34.3 Thrombin Time 18.4 Fibrinogen 275.0 # Plasma Fibrin Degradation Products >40 and <80 H D-Dimer > 56741.00 H Sodium Level 136 Potassium Level 4.3 Chloride Level 98 Carbon Dioxide Level 27 Anion Gap 15 Blood Urea Nitrogen 73 H Creatinine 5.80 H Glucose Level 96 Calcium Level 6.9 L Magnesium Level 2.3 Total Bilirubin 1.2 Direct Bilirubin 0.90 #H Indirect Bilirubin 0.3 Aspartate Amino Transf (AST/SGOT) 45 Alanine Aminotransferase (ALT/SGPT) 335 H Alkaline Phosphatase 116 Troponin I 7.710 *H Total Protein 5.1 L Albumin 2.6 L Globulin 2.50 Albumin/Globulin Ratio 1.04 Lab Scanned Report BLOOD TRANSFUSION Blood Gas Specimen Source Blood arterial Arterial Blood Date Drawn 05/07/2017 8:50:41 AM Arterial Blood pH (Temp corrected) 7.400 Arterial Blood pCO2 (Temp correct) 42.1 Arterial Blood pO2 (Temp corrected) 102.2 H Arterial Blood HCO3 25.5 Arterial Blood Base Excess 0.6 Arterial Blood Oxygen Saturation 97.8 Hunter Test ACCEPTAB Arterial Blood Gas Puncture Site Left Radial Arterial Blood Carboxyhemoglobin 0.5 Arterial Blood Methemoglobin 0.2 Blood Gas A-a O2 Differential 134.6 H Oxyhemoglobin Percent 97.1 Total Hemoglobin 11.1 L Blood Gas Temperature 37.0 Blood Gas Respiration Rate 16.0 Blood Gas Actual Respiration Rate 19 Blood Gas Modality VENT - AC FiO2 40.0 Blood Gas Tidal Volume 500.0 Blood Gas Low PEEP Setting 5.0 Blood Gas Notified Whom DT Blood Gas Notified Time 05/07/2017 9:10:51 AM Medications Medications Current Medications Folic Acid (Folic Acid) 1 mg DAILY PO Last administered on 05/07/17t 11:26; Admin Dose 1 MG; Start 04/30/17 at 09:00 Ondansetron HCl (Zofran Inj) 4 mg Q6H PRN IV NAUSEA AND/OR VOMITING Last administered on 05/03/17 23:24; Admin Dose 4 MG; Start 04/29/17 at 20:00 Nitroglycerin (Nitroglycerin (Sl Tab) 0.4 Mg) 1 tab Q5M PRN SL CHEST PAIN; Start 04/29/17 at 20:00 Acetaminophen (Tylenol Liquid) 650 mg Q6H PRN PO PAIN LEVEL 1-3 OR FEVER; Start 04/29/17 at 20:00 Acetaminophen (Tylenol Tab) 650 mg Q6H PRN PO PAIN LEVEL 1-3 OR FEVER; Start at 20:00 Acetaminophen/ Hydrocodone Bitart ([place] (5/325)) 1 tab Q6H PRN PO PAIN LEVEL 4 -6; Start 04/29/17 at 20:00 Zolpidem Tartrate (Ambien) 5 mg QHS PRN PO INSOMNIA; Start 04/29/17 at 20:00 Docusate Sodium (Colace) 100 mg Q12H PRN PO CONSTIPATION; Start 04/29/17 at 20: 00 Bisacodyl (Dulcolax) 5 mg DAILY PRN PO CONSTIPATION; Start 04/29/17 at 20:00 Aspirin 325 mg 325 mg DAILY PO Last administered on 05/07/17 11:26; Admin Dose 325 MG; Start 04/30/17 at 09:00 Vasopressin 60 unit/Dextrose 60 ml @ 1.2 mls/hr Q12H IV Last administered on 01:07; Admin Dose 2.4 MLS/HR; Start 04/30/17 at 13:00 Phenylephrine HCl 80 mg/Dextrose 250 ml @ 18.75 mls/ hr TITRATE IV Last administered on 05/04/17 09:57; Admin Dose 31.87 MLS/HR; Start 04/30/17 at 18: 00 Norepinephrine/ Dextrose (Levophed/D5W) 250 ml @ 0.46 mls/hr TITRATE IV Last administered on 05/06/17 05:15; Admin Dose 0.46 MLS/HR; Start 04/30/17 at 18:00 Pantoprazole (Protonix Iv) 40 mg BID@06,18 IV Last administered on 05/07/17 05 :17; Admin Dose 40 MG; Start 05/02/17 at 18:00 Diphenhydramine HCl 25 mg 25 mg Q4H PRN IV ITCHING Last administered on 16:41; Admin Dose 25 MG; Start 05/02/17 at 08:30 Cefepime HCl 50 ml @ 100 mls/hr Q24H IVPB Last administered on 05/07/17 11:26 ; Admin Dose 100 MLS/HR; Start 05/02/17 at 11:00 Dobutamine HCl/ Dextrose 250 ml @ 4.755 mls/ hr TITRATE IV Last administered on 05/07/17 05:21; Admin Dose 3.804 MLS/HR; Start 05/03/17 at 09:30 Miscellaneous Information 1 ea NOTE XX ; Start 05/03/17 at 13:00 Glucose (Glutose) 15 gm Q15M PRN PO DECREASED GLUCOSE; Start 05/03/17 at 12:45 Glucose (Glutose) 22.5 gm Q15M PRN PO DECREASED GLUCOSE; Start 05/03/17 at 12: 45 Dextrose (D50w Syringe) 25 ml Q15M PRN IV DECREASED GLUCOSE Last administered on 05/03/17 12:48; Admin Dose 25 ML; Start 05/03/17 at 12:45 Dextrose (D50w Syringe) 50 ml Q15M PRN IV DECREASED GLUCOSE; Start 05/03/17 at 12:46 Glucagon (Glucagen) 1 mg Q15M PRN IM DECREASED GLUCOSE; Start 05/03/17 at 12:46 Glucose 15 gm 15 gm Q15M PRN BUCCAL DECREASED GLUCOSE; Start 05/03/17 at 12:46 Midazolam HCl 50 ml @ 1 mls/hr TITRATE IV Last administered on 05/07/17 04:35 ; Admin Dose 2 MLS/HR; Start 05/03/17 at 15:00 Dextrose/Sodium Chloride (D5-NS) 1,000 ml @ 20 mls/hr Q24H IV Last administered on 05/06/17 16:27; Admin Dose 20 MLS/HR; Start 05/03/17 at 16:00 Metoclopramide HCl (Reglan) 5 mg Q6 IV Last administered on 05/07/17 12:51; Admin Dose 5 MG; Start 05/04/17 at 12:00 Nystatin (Nystatin Susp) 5 ml QID PO Last administered on 05/07/17 16:47; Admin Dose 5 ML; Start 05/04/17 at 13:00 Methylprednisolone Sodium Succinate 40 mg 40 mg DAILY IV Last administered on 11:26; Admin Dose 40 MG; Start 05/05/17 at 09:00 Fentanyl (Sublimaze) 100 ml @ 5 mls/hr TITRATE IV Last administered on 17:20; Admin Dose 5 MLS/HR; Start 05/06/17 at 08:30 Amiodarone HCl (Cordarone) 400 mg BID NGT Last administered on 05/07/17 11:27 ; Admin Dose 400 MG; Start 05/06/17 at 18:00 Eye Lubricant (Akwa Oint) 1 applic Q4 PRN BOTH EYES dryness; Start 05/07/17 at 13:00 Miscellaneous Information (Pending [facility] Order For Wound Care) This patient otto... PRN PRN XX WOUND CARE; Start 05/07/17 at 13:30 KEVIN PICKERING MD May 07, 2017 17:24
[2017-05-08] VITALS (58 sets, daily range): BP systolic 81–147; BP diastolic 25–84; PULSE 57–85; RESP 0–26
[2017-05-08] MEDS: VASOPRESSIN 60 UNIT in DEXTROSE 5% 57 ML IV SCH ×2 (01:00→13:00)
[2017-05-08] MEDS: ALBUTEROL 18 GM INHALER INH SCH ×4 (01:43→19:03)
[2017-05-08] MEDS: IPRATROPIUM (HFA) 12.9 GM INHALER INH SCH ×4 (01:43→19:02)
[2017-05-08 04:56] LABS: ABNORMAL IP MESSAGE 1; BASOPHILS % 0.2 % (0.0-2.0); HEMATOCRIT 26.9 % (42.0-52.0); HEMOGLOBIN 8.9 g/dl (14.0-18.0); LYMPHOCYTES # 0.3 10^3/ul (0.8-2.9); LYMPHOCYTES % 1.9 % (15.0-51.0); MEAN CORPUSCULAR HEMOGLOBIN 32.5 pg (29.0-33.0); MEAN CORPUSCULAR HGB CONC 33.1 g/dl (32.0-37.0); MEAN CORPUSCULAR VOLUME 98.2 fl (82.0-101.0); MEAN PLATELET VOLUME 12.1 fl (7.4-10.4); MONOCYTE # 0.7 10^3/ul (0.3-0.9); MONOCYTES % 3.8 % (0.0-11.0); NEUTROPHIL # 16.6 10^3/ul (1.6-7.5); NEUTROPHILS % 92.5 % (39.0-77.0); PLATELET COUNT 51 10^3/UL (140-415); POSITIVE DIFF @See below; RED BLOOD COUNT 2.74 10^6/ul (4.70-6.10); RED CELL DISTRIBUTION WIDTH 15.6 % (11.5-14.5); WHITE BLOOD COUNT 17.9 10^3/ul (4.8-10.8)
[2017-05-08 05:13] LABS: PLATELET COUNT 55 10^3/UL (140-415)
[2017-05-08 05:14] LABS: CALCIUM 7.9 mg/dl (8.4-10.2); CREATININE 5.26 mg/dl (0.61-1.24); POTASSIUM 4.2 mmol/L (3.5-5.1)
[2017-05-08 05:25] LABS: INR 1.24; PROTIME 15.7 Sec (12.2-14.2); PT RATIO 1.2
[2017-05-08 05:28] LABS: PARTIAL THROMBOPLASTIN TIME 33.2 Sec (25.0-35.0)
[2017-05-08 05:30] LABS: THROMBIN TIME 17.7 SEC (13.8-19.1)
[2017-05-08 05:47] LABS: D-DIMER 9915.22 ng/ml (<460)
--- NOTE | 2017-05-08 05:50 | PN ---
DATE: 05/07/2017 SUBJECTIVE DATA: No acute changes. Patient remains intubated on dobutamine drip, sedated, just finished hemodialysis. No fevers. Family at bedside. LABORATORY: WBC 19.1. H and H 8.9 and 26.6, platelet count 63,000. INDWELLING: Patient has left upper extremity AV fistula, endotracheal tube, NG tube. Right femoral triple lumen catheter. ANTIMICROBIALS: Vanco, cefepime. PHYSICAL EXAMINATION: VITAL SIGNS: Temperature 98, pulse 82, respirations 16, blood pressure 130/55, saturation 99%. GENERAL: This is a chronically ill-appearing, fragile, elderly man who is intubated, sedated, in no distress. HEENT: Head atraumatic, normocephalic. Sclerae anicteric. Buccal mucosa dry. NECK: Supple. CHEST: Rise symmetrical. Breath sounds diminished at the bases. HEART: S1, S2. ABDOMEN: Soft, bowel sounds hypoactive. EXTREMITIES: Without cyanosis. ASSESSMENT: 1. Shock, multifactorial. 2. Status post streptococcal bacteremia on admission, completing antibiotics with repeat blood cultures negative. 3. Acute respiratory failure. 4. Acute myocardial infarction. 5. Anemia and thrombocytopenia. 6. History of coronary artery bypass grafting. 7. Gallstones with resolving transaminitis. PLAN: Patient is slowly improving, currently on dobutamine drip only. We are going to discontinue vancomycin. Continue cefepime for couple more days. Continue management as per primary team and consultants. Dictated By: Chelly Hudson NP /valarie/ara /Document#: [id number] LUIS A
[2017-05-08] MEDS: PANTOPRAZOLE 40 MG INJ IV SCH ×2 (05:52→17:56)
[2017-05-08] MEDS: METOCLOPRAMIDE 10 MG INJ IV SCH ×3 (06:05→17:56)
[2017-05-08 07:31] LABS: FIBRIN SPLIT PRODUCT >40 and <80 ug/ml (<10)
[2017-05-08] MEDS: METHYLPREDNISOLONE 40 MG INJ IV SCH (08:57)
[2017-05-08] MEDS: AMIODARONE 200 MG TAB NGT SCH ×2 (08:58→20:29)
[2017-05-08] MEDS: ASPIRIN 325 MG TAB PO SCH (08:58)
[2017-05-08] MEDS: FOLIC ACID 1 MG TAB PO SCH (08:58)
[2017-05-08] MEDS: NYSTATIN SUSP 5 ML CUP PO SCH ×4 (08:58→20:29)
--- NOTE | 2017-05-08 10:20 | CONS ---
Date/Time of Note Date/Time of Note DATE: 05/08/17 TIME: 10:17 Assessment/Plan Assessment/Plan Chief Complaint/Hosp Course #Thrombocytopenia -now improved and > 50K -this is secondary to shock liver as evidenced by the markedly elevated AST/ALT (>7000/5000). Liver enzymes have greatly improved -no evidence of hemolytic anemia -will continue to check daily DIC panel and transfuse 1 unit cryo if fibrinogen is < 150. fibrinogen is currently > 300 -given platelet count is > 50K, ok with restarting anticoagulation if cleared with cardiology -platelet transfusion was orderer for today #Anemia -2/2 shock, sepsis and questionable bleed -Hg is currently stable #Cardiogenic shock with shock liver -management per cardiology -patient currently on ionotropic support -pt will need cath once his platelets recover #ESRD wit acidosis -continue HD as tolerated. currently blood pressure is very labile #Respiratory failure -currently intubated -cont management per pulmonary Problems: Consultation Date/Type/Reason Admit Date/Time Apr 29, 2017 at 19:31 Initial Consult Date 05/02/17 Type of Consultation: hematology Reason for Consultation AML Referring Provider: YENNY WINSTON MD 24 HR Interval Summary Free Text/Dictation pt currently on 1 pressor. no bleeding per nurse Exam/Review of Systems Vital Signs Vitals Vital Signs Date Time Temp Pulse Resp B/P Pulse Ox O2 Delivery O2 Flow Rate FiO2 05/08/17 09:30 67 0 110/31 05/08/17 09:00 100 Mechanical Ventilator 05/08/17 07:30 97.7 05/08/17 05:12 40 Intake and Output 05/07/17 05/07/17 05/08/17 15:00 23:00 07:00 Intake Total 560.236 ml 228.604 ml 176 ml Output Total 2300 ml 0 ml 0 ml Balance -1739.764 ml 228.604 ml 176 ml Exam Constitutional: frail, non-verbal ENMT: intubated Neck: non-tender, supple Respiratory: clear to auscultation Cardiovascular: regular rate and rhythm Gastrointestinal: soft Musculoskeletal: nl extremities to inspection, nl gait and stance Extremities: normal pulses Results Result Diagram: 05/08/17 0400 05/08/17 0400 Results 24 hrs Laboratory Tests Test 05/08/17 04:00 White Blood Count 17.9 H Red Blood Count 2.74 L Hemoglobin 8.9 L Hematocrit 26.9 L Mean Corpuscular Volume 98.2 Mean Corpuscular Hemoglobin 32.5 Mean Corpuscular Hemoglobin Concent 33.1 Red Cell Distribution Width 15.6 H Platelet Count 51 L Mean Platelet Volume 12.1 H Neutrophils % 92.5 H Lymphocytes % 1.9 L Monocytes % 3.8 Eosinophils % 0.0 Basophils % 0.2 Nucleated Red Blood Cells % 0.0 Neutrophils # 16.6 H Lymphocytes # 0.3 L Monocytes # 0.7 Eosinophils # 0.0 Basophils # 0.0 Nucleated Red Blood Cells # 0.0 Prothrombin Time 15.7 H Prothrombin Time Ratio 1.2 INR International Normalized Ratio 1.24 Activated Partial Thromboplast Time 33.2 Thrombin Time 17.7 Fibrinogen 305.0 # Plasma Fibrin Degradation Products >40 and <80 H D-Dimer 9915.22 H D-Dimer Comment Sodium Level 136 Potassium Level 4.2 Chloride Level 101 Carbon Dioxide Level 30 Anion Gap 9 # Blood Urea Nitrogen 60 H Creatinine 5.26 H Glucose Level 93 Calcium Level 7.9 L Magnesium Level 2.0 Medications Medications Current Medications Folic Acid (Folic Acid) 1 mg DAILY PO Last administered on 05/08/17 08:58; Admin Dose 1 MG; Start 04/30/17 at 09:00 Ondansetron HCl (Zofran Inj) 4 mg Q6H PRN IV NAUSEA AND/OR VOMITING Last administered on 05/03/17 23:24; Admin Dose 4 MG; Start 04/29/17 at 20:00 Nitroglycerin (Nitroglycerin (Sl Tab) 0.4 Mg) 1 tab Q5M PRN SL CHEST PAIN; Start 04/29/17 at 20:00 Acetaminophen (Tylenol Liquid) 650 mg Q6H PRN PO PAIN LEVEL 1-3 OR FEVER; Start 04/29/17 at 20:00 Acetaminophen (Tylenol Tab) 650 mg Q6H PRN PO PAIN LEVEL 1-3 OR FEVER; Start at 20:00 Acetaminophen/ Hydrocodone Bitart ([place] (5/325)) 1 tab Q6H PRN PO PAIN LEVEL 4 -6; Start 04/29/17 at 20:00 Zolpidem Tartrate (Ambien) 5 mg QHS PRN PO INSOMNIA; Start 04/29/17 at 20:00 Docusate Sodium (Colace) 100 mg Q12H PRN PO CONSTIPATION; Start 04/29/17 at 20: 00 Bisacodyl (Dulcolax) 5 mg DAILY PRN PO CONSTIPATION; Start 04/29/17 at 20:00 Aspirin 325 mg 325 mg DAILY PO Last administered on 05/08/17 08:58; Admin Dose 325 MG; Start 04/30/17 at 09:00 Vasopressin 60 unit/Dextrose 60 ml @ 1.2 mls/hr Q12H IV Last administered on 01:07; Admin Dose 2.4 MLS/HR; Start 04/30/17 at 13:00 Phenylephrine HCl 80 mg/Dextrose 250 ml @ 18.75 mls/ hr TITRATE IV Last administered on 05/04/17 09:57; Admin Dose 31.87 MLS/HR; Start 04/30/17 at 18: 00 Norepinephrine/ Dextrose (Levophed/D5W) 250 ml @ 0.46 mls/hr TITRATE IV Last administered on 05/06/17 05:15; Admin Dose 0.46 MLS/HR; Start 04/30/17 at 18:00 Pantoprazole (Protonix Iv) 40 mg BID@06,18 IV Last administered on 05/08/17 05 :52; Admin Dose 40 MG; Start 05/02/17 at 18:00 Diphenhydramine HCl 25 mg 25 mg Q4H PRN IV ITCHING Last administered on 16:41; Admin Dose 25 MG; Start 05/02/17 at 08:30 Cefepime HCl 50 ml @ 100 mls/hr Q24H IVPB Last administered on 05/07/17 11:26 ; Admin Dose 100 MLS/HR; Start 05/02/17 at 11:00 Dobutamine HCl/ Dextrose 250 ml @ 4.755 mls/ hr TITRATE IV Last administered on 05/07/17 05:21; Admin Dose 3.804 MLS/HR; Start 05/03/17 at 09:30 Miscellaneous Information 1 ea NOTE XX ; Start 05/03/17 at 13:00 Glucose (Glutose) 15 gm Q15M PRN PO DECREASED GLUCOSE; Start 05/03/17 at 12:45 Glucose (Glutose) 22.5 gm Q15M PRN PO DECREASED GLUCOSE; Start 05/03/17 at 12: 45 Dextrose (D50w Syringe) 25 ml Q15M PRN IV DECREASED GLUCOSE Last administered on 05/03/17 12:48; Admin Dose 25 ML; Start 05/03/17 at 12:45 Dextrose (D50w Syringe) 50 ml Q15M PRN IV DECREASED GLUCOSE; Start 05/03/17 at 12:46 Glucagon (Glucagen) 1 mg Q15M PRN IM DECREASED GLUCOSE; Start 05/03/17 at 12:46 Glucose 15 gm 15 gm Q15M PRN BUCCAL DECREASED GLUCOSE; Start 05/03/17 at 12:46 Midazolam HCl 50 ml @ 1 mls/hr TITRATE IV Last administered on 05/07/17 23:45 ; Admin Dose 2 MLS/HR; Start 05/03/17 at 15:00 Dextrose/Sodium Chloride (D5-NS) 1,000 ml @ 20 mls/hr Q24H IV Last administered on 05/06/17 16:27; Admin Dose 20 MLS/HR; Start 05/03/17 at 16:00 Metoclopramide HCl (Reglan) 5 mg Q6 IV Last administered on 05/08/17 06:05; Admin Dose 5 MG; Start 05/04/17 at 12:00 Nystatin (Nystatin Susp) 5 ml QID PO Last administered on 05/08/17 08:58; Admin Dose 5 ML; Start 05/04/17 at 13:00 Methylprednisolone Sodium Succinate 40 mg 40 mg DAILY IV Last administered on 08:57; Admin Dose 40 MG; Start 05/05/17 at 09:00 Fentanyl (Sublimaze) 100 ml @ 5 mls/hr TITRATE IV Last administered on 17:20; Admin Dose 5 MLS/HR; Start 05/06/17 at 08:30 Amiodarone HCl (Cordarone) 400 mg BID NGT Last administered on 05/08/17 08:58 ; Admin Dose 400 MG; Start 05/06/17 at 18:00 Eye Lubricant (Akwa Oint) 1 applic Q4 PRN BOTH EYES dryness Last administered on 05/08/17 08:59; Admin Dose 1 APPLIC; Start 05/07/17 at 13:00 Miscellaneous Information ([facility]ending [facility]) This patient otto... PRN PRN XX WOUND CARE; Start 05/07/17 at 13:30 JEFF HANSON M.D. May 08, 2017 10:19
--- NOTE | 2017-05-08 10:36 | CONS ---
Date/Time of Note Date/Time of Note DATE: 05/08/17 TIME: 10:32 Assessment/Plan Assessment/Plan Additional Assessment/Plan Ventilator setting; AC of 16, tidal volume 500, PEEP of 5, 40% FiO2. Dobutamine 0.9 mics per kilogram per minute. Assessment and recommendations; 1. Patient admitted with respiratory failure due to bilateral pneumonia and severe decompensated congestive heart failure. 2. Profound shock on admission with interval improvement. 3. Cardiomyopathy. 4. End-stage renal disease, on hemodialysis. 5. Anemia and severe thrombocytopenia. 6. Upper GI bleed with interval resolution. Continue current supportive care. Obtain follow-up chest x-ray. Patient will be given a weaning trial from ventilator in 24 hours provided chest x-ray findings are not indicative of decompensated congestive heart failure. I did have a detailed discussion the patient's family at bedside and answered all their questions. Consultation Date/Type/Reason Admit Date/Time Apr 29, 2017 at 19:31 Initial Consult Date 05/01/17 Type of Consultation: Pulmonary/critical care Referring Provider: YENNY WINSTON MD 24 HR Interval Summary Free Text/Dictation Patient's condition remains critical. Requiring reinitiation of dobutamine drip. General exam; elderly male, orally intubated, sedated. Currently no distress. Exam/Review of Systems Vital Signs Vitals Vital Signs Date Time Temp Pulse Resp B/P Pulse Ox O2 Delivery O2 Flow Rate FiO2 05/08/17 09:30 67 0 110/31 05/08/17 09:00 100 Mechanical Ventilator 05/08/17 07:30 97.7 05/08/17 05:12 40 Intake and Output 05/07/17 05/07/17 05/08/17 15:00 23:00 07:00 Intake Total 560.236 ml 228.604 ml 176 ml Output Total 2300 ml 0 ml 0 ml Balance -1739.764 ml 228.604 ml 176 ml Exam HEENT exam; supple neck, positive JVD. No lymphadenopathy. Midline trachea. No thyromegaly. Pupils are small bilaterally. Patient has a multiple carious teeth. Chest exam; diminished but clear breath sounds. S1-S2 audible, no murmurs. There is a well-healed sternal scar. Abdomen exam; soft, non-distended. Bowel sounds audible. No organomegaly felt. Extremity exam; trace edema. 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 Results Result Diagram: 05/08/17 0400 05/08/17 0400 Results 24 hrs Laboratory Tests Test 05/08/17 04:00 White Blood Count 17.9 H Red Blood Count 2.74 L Hemoglobin 8.9 L Hematocrit 26.9 L Mean Corpuscular Volume 98.2 Mean Corpuscular Hemoglobin 32.5 Mean Corpuscular Hemoglobin Concent 33.1 Red Cell Distribution Width 15.6 H Platelet Count 51 L Mean Platelet Volume 12.1 H Neutrophils % 92.5 H Lymphocytes % 1.9 L Monocytes % 3.8 Eosinophils % 0.0 Basophils % 0.2 Nucleated Red Blood Cells % 0.0 Neutrophils # 16.6 H Lymphocytes # 0.3 L Monocytes # 0.7 Eosinophils # 0.0 Basophils # 0.0 Nucleated Red Blood Cells # 0.0 Prothrombin Time 15.7 H Prothrombin Time Ratio 1.2 INR International Normalized Ratio 1.24 Activated Partial Thromboplast Time 33.2 Thrombin Time 17.7 Fibrinogen 305.0 # Plasma Fibrin Degradation Products >40 and <80 H D-Dimer 9915.22 H D-Dimer Comment Sodium Level 136 Potassium Level 4.2 Chloride Level 101 Carbon Dioxide Level 30 Anion Gap 9 # Blood Urea Nitrogen 60 H Creatinine 5.26 H Glucose Level 93 Calcium Level 7.9 L Magnesium Level 2.0 Medications Medications Current Medications Folic Acid (Folic Acid) 1 mg DAILY PO Last administered on 05/08/17 08:58; Admin Dose 1 MG; Start 04/30/17 at 09:00 Ondansetron HCl (Zofran Inj) 4 mg Q6H PRN IV NAUSEA AND/OR VOMITING Last administered on 05/03/17 23:24; Admin Dose 4 MG; Start 04/29/17 at 20:00 Nitroglycerin (Nitroglycerin (Sl Tab) 0.4 Mg) 1 tab Q5M PRN SL CHEST PAIN; Start 04/29/17 at 20:00 Acetaminophen (Tylenol Liquid) 650 mg Q6H PRN PO PAIN LEVEL 1-3 OR FEVER; Start 04/29/17 at 20:00 Acetaminophen (Tylenol Tab) 650 mg Q6H PRN PO PAIN LEVEL 1-3 OR FEVER; Start at 20:00 Acetaminophen/ Hydrocodone Bitart ([place] (5/325)) 1 tab Q6H PRN PO PAIN LEVEL 4 -6; Start 04/29/17 at 20:00 Zolpidem Tartrate (Ambien) 5 mg QHS PRN PO INSOMNIA; Start 04/29/17 at 20:00 Docusate Sodium (Colace) 100 mg Q12H PRN PO CONSTIPATION; Start 04/29/17 at 20: 00 Bisacodyl (Dulcolax) 5 mg DAILY PRN PO CONSTIPATION; Start 04/29/17 at 20:00 Aspirin 325 mg 325 mg DAILY PO Last administered on 05/08/17 08:58; Admin Dose 325 MG; Start 04/30/17 at 09:00 Vasopressin 60 unit/Dextrose 60 ml @ 1.2 mls/hr Q12H IV Last administered on 01:07; Admin Dose 2.4 MLS/HR; Start 04/30/17 at 13:00 Phenylephrine HCl 80 mg/Dextrose 250 ml @ 18.75 mls/ hr TITRATE IV Last administered on 05/04/17 09:57; Admin Dose 31.87 MLS/HR; Start 04/30/17 at 18: 00 Norepinephrine/ Dextrose (Levophed/D5W) 250 ml @ 0.46 mls/hr TITRATE IV Last administered on 05/06/17 05:15; Admin Dose 0.46 MLS/HR; Start 04/30/17 at 18:00 Pantoprazole (Protonix Iv) 40 mg BID@06,18 IV Last administered on 05/08/17 05 :52; Admin Dose 40 MG; Start 05/02/17 at 18:00 Diphenhydramine HCl 25 mg 25 mg Q4H PRN IV ITCHING Last administered on 16:41; Admin Dose 25 MG; Start 05/02/17 at 08:30 Cefepime HCl 50 ml @ 100 mls/hr Q24H IVPB Last administered on 05/07/17 11:26 ; Admin Dose 100 MLS/HR; Start 05/02/17 at 11:00 Dobutamine HCl/ Dextrose 250 ml @ 4.755 mls/ hr TITRATE IV Last administered on 05/07/17 05:21; Admin Dose 3.804 MLS/HR; Start 05/03/17 at 09:30 Miscellaneous Information 1 ea NOTE XX ; Start 05/03/17 at 13:00 Glucose (Glutose) 15 gm Q15M PRN PO DECREASED GLUCOSE; Start 05/03/17 at 12:45 Glucose (Glutose) 22.5 gm Q15M PRN PO DECREASED GLUCOSE; Start 05/03/17 at 12: 45 Dextrose (D50w Syringe) 25 ml Q15M PRN IV DECREASED GLUCOSE Last administered on 05/03/17 12:48; Admin Dose 25 ML; Start 05/03/17 at 12:45 Dextrose (D50w Syringe) 50 ml Q15M PRN IV DECREASED GLUCOSE; Start 05/03/17 at 12:46 Glucagon (Glucagen) 1 mg Q15M PRN IM DECREASED GLUCOSE; Start 05/03/17 at 12:46 Glucose 15 gm 15 gm Q15M PRN BUCCAL DECREASED GLUCOSE; Start 05/03/17 at 12:46 Midazolam HCl 50 ml @ 1 mls/hr TITRATE IV Last administered on 05/07/17 23:45 ; Admin Dose 2 MLS/HR; Start 05/03/17 at 15:00 Dextrose/Sodium Chloride (D5-NS) 1,000 ml @ 20 mls/hr Q24H IV Last administered on 05/06/17 16:27; Admin Dose 20 MLS/HR; Start 05/03/17 at 16:00 Metoclopramide HCl (Reglan) 5 mg Q6 IV Last administered on 05/08/17 06:05; Admin Dose 5 MG; Start 05/04/17 at 12:00 Nystatin (Nystatin Susp) 5 ml QID PO Last administered on 05/08/17 08:58; Admin Dose 5 ML; Start 05/04/17 at 13:00 Methylprednisolone Sodium Succinate 40 mg 40 mg DAILY IV Last administered on 08:57; Admin Dose 40 MG; Start 05/05/17 at 09:00 Fentanyl (Sublimaze) 100 ml @ 5 mls/hr TITRATE IV Last administered on 17:20; Admin Dose 5 MLS/HR; Start 05/06/17 at 08:30 Amiodarone HCl (Cordarone) 400 mg BID NGT Last administered on 05/08/17 08:58 ; Admin Dose 400 MG; Start 05/06/17 at 18:00 Eye Lubricant (Akwa Oint) 1 applic Q4 PRN BOTH EYES dryness Last administered on 05/08/17t 08:59; Admin Dose 1 APPLIC; Start 05/07/17 at 13:00 [facility]isc[facility] This patient otto... PRN PRN XX WOUND CARE; Start 05/07/17 at 13:30 CHARLES EMMANUEL May 08, 2017 10:36
[2017-05-08] MEDS: CEFEPIME 1GM/50 ML (PMX) 50 ML IVPB SCH (11:12)
--- NOTE | 2017-05-08 11:12 | PN ---
Date/Time of Note Date/Time of Note DATE: 05/08/17 TIME: 11:10 Assessment/Plan VTE Prophylaxis VTE Prophylaxis Intervention: SCD's Lines/Catheters IV Catheter Type (from Nrsg): Central Line Central line still needed: Yes Urinary Cath still in place: No Assessment/Plan Chief Complaint/Hosp Course 1. cardiogenic shock, resolving 2. Dysphagia. 3. History of head and neck or laryngeal cancer. 4. 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 5. History of coronary artery disease, status post coronary artery bypass grafting. 6. hypertension, controlled 7. Acute on chronic heart failure with EF 30% 8. Shock liver improving LFTs with improving ischemia 9. Lactic acidosis 10. Respiratory failure on Vent 11. Anemia 12. Right arm DVT but cannot be on anticoagulation due to thrombocytopenia Problems: Assessment/Plan 1. continue HD 2. Weaning trials daily 3. Increase tube feeding Subjective 24 Hr Interval Summary Subjective hx not possible: pt non-verbal, pt critical status Exam/Review of Systems Vital Signs Vitals Vital Signs Date Time Temp Pulse Resp B/P Pulse Ox O2 Delivery O2 Flow Rate FiO2 05/08/17 09:30 67 0 110/31 05/08/17 09:00 100 Mechanical Ventilator 05/08/17 07:30 97.7 05/08/17 05:12 40 Intake and Output 05/07/17 05/07/17 05/08/17 15:00 23:00 07:00 Intake Total 560.236 ml 228.604 ml 176 ml Output Total 2300 ml 0 ml 0 ml Balance -1739.764 ml 228.604 ml 176 ml Exam orally intubated Constitutional: alert, other (follow commands) ENMT: nl external ears & nose Neck: supple Respiratory: diminished breath sounds Cardiovascular: irregular rhythm Gastrointestinal: soft Results Result Diagram: 05/08/17 0400 05/08/17 0400 Results 24 hrs Laboratory Tests Test 05/08/17 04:00 White Blood Count 17.9 H Red Blood Count 2.74 L Hemoglobin 8.9 L Hematocrit 26.9 L Mean Corpuscular Volume 98.2 Mean Corpuscular Hemoglobin 32.5 Mean Corpuscular Hemoglobin Concent 33.1 Red Cell Distribution Width 15.6 H Platelet Count 51 L Mean Platelet Volume 12.1 H Neutrophils % 92.5 H Lymphocytes % 1.9 L Monocytes % 3.8 Eosinophils % 0.0 Basophils % 0.2 Nucleated Red Blood Cells % 0.0 Neutrophils # 16.6 H Lymphocytes # 0.3 L Monocytes # 0.7 Eosinophils # 0.0 Basophils # 0.0 Nucleated Red Blood Cells # 0.0 Prothrombin Time 15.7 H Prothrombin Time Ratio 1.2 INR International Normalized Ratio 1.24 Activated Partial Thromboplast Time 33.2 Thrombin Time 17.7 Fibrinogen 305.0 # Plasma Fibrin Degradation Products >40 and <80 H D-Dimer 9915.22 H D-Dimer Comment Sodium Level 136 Potassium Level 4.2 Chloride Level 101 Carbon Dioxide Level 30 Anion Gap 9 # Blood Urea Nitrogen 60 H Creatinine 5.26 H Glucose Level 93 Calcium Level 7.9 L Magnesium Level 2.0 Medications Medications Current Medications Folic Acid (Folic Acid) 1 mg DAILY PO Last administered on 05/08/17 08:58; Admin Dose 1 MG; Start 04/30/17 at 09:00 Ondansetron HCl (Zofran Inj) 4 mg Q6H PRN IV NAUSEA AND/OR VOMITING Last administered on 05/03/17 23:24; Admin Dose 4 MG; Start 04/29/17 at 20:00 Nitroglycerin (Nitroglycerin (Sl Tab) 0.4 Mg) 1 tab Q5M PRN SL CHEST PAIN; Start 04/29/17 at 20:00 Acetaminophen (Tylenol Liquid) 650 mg Q6H PRN PO PAIN LEVEL 1-3 OR FEVER; Start 04/29/17 at 20:00 Acetaminophen (Tylenol Tab) 650 mg Q6H PRN PO PAIN LEVEL 1-3 OR FEVER; Start at 20:00 Acetaminophen/ Hydrocodone Bitart ([place] (5/325)) 1 tab Q6H PRN PO PAIN LEVEL 4 -6; Start 04/29/17 at 20:00 Zolpidem Tartrate (Ambien) 5 mg QHS PRN PO INSOMNIA; Start 04/29/17 at 20:00 Docusate Sodium (Colace) 100 mg Q12H PRN PO CONSTIPATION; Start 04/29/17 at 20: 00 Bisacodyl (Dulcolax) 5 mg DAILY PRN PO CONSTIPATION; Start 04/29/17 at 20:00 Aspirin 325 mg 325 mg DAILY PO Last administered on 05/08/17 08:58; Admin Dose 325 MG; Start 04/30/17 at 09:00 Vasopressin 60 unit/Dextrose 60 ml @ 1.2 mls/hr Q12H IV Last administered on 01:07; Admin Dose 2.4 MLS/HR; Start 04/30/17 at 13:00 Phenylephrine HCl 80 mg/Dextrose 250 ml @ 18.75 mls/ hr TITRATE IV Last administered on 05/04/17 09:57; Admin Dose 31.87 MLS/HR; Start 04/30/17 at 18: 00 Norepinephrine/ Dextrose (Levophed/D5W) 250 ml @ 0.46 mls/hr TITRATE IV Last administered on 05/06/17 05:15; Admin Dose 0.46 MLS/HR; Start 04/30/17 at 18:00 Pantoprazole (Protonix Iv) 40 mg BID@06,18 IV Last administered on 05/08/17 05 :52; Admin Dose 40 MG; Start 05/02/17 at 18:00 Diphenhydramine HCl 25 mg 25 mg Q4H PRN IV ITCHING Last administered on 16:41; Admin Dose 25 MG; Start 05/02/17 at 08:30 Cefepime HCl 50 ml @ 100 mls/hr Q24H IVPB Last administered on 05/07/17 11:26 ; Admin Dose 100 MLS/HR; Start 05/02/17 at 11:00 Dobutamine HCl/ Dextrose 250 ml @ 4.755 mls/ hr TITRATE IV Last administered on 05/07/17 05:21; Admin Dose 3.804 MLS/HR; Start 05/03/17 at 09:30 Miscellaneous Information 1 ea NOTE XX ; Start 05/03/17 at 13:00 Glucose (Glutose) 15 gm Q15M PRN PO DECREASED GLUCOSE; Start 05/03/17 at 12:45 Glucose (Glutose) 22.5 gm Q15M PRN PO DECREASED GLUCOSE; Start 05/03/17 at 12: 45 Dextrose (D50w Syringe) 25 ml Q15M PRN IV DECREASED GLUCOSE Last administered on 05/03/17 12:48; Admin Dose 25 ML; Start 05/03/17 at 12:45 Dextrose (D50w Syringe) 50 ml Q15M PRN IV DECREASED GLUCOSE; Start 05/03/17 at 12:46 Glucagon (Glucagen) 1 mg Q15M PRN IM DECREASED GLUCOSE; Start 05/03/17 at 12:46 Glucose 15 gm 15 gm Q15M PRN BUCCAL DECREASED GLUCOSE; Start 05/03/17 at 12:46 Midazolam HCl 50 ml @ 1 mls/hr TITRATE IV Last administered on 05/07/17 23:45 ; Admin Dose 2 MLS/HR; Start 05/03/17 at 15:00 Dextrose/Sodium Chloride (D5-NS) 1,000 ml @ 20 mls/hr Q24H IV Last administered on 05/06/17 16:27; Admin Dose 20 MLS/HR; Start 05/03/17 at 16:00 Metoclopramide HCl (Reglan) 5 mg Q6 IV Last administered on 05/08/17 06:05; Admin Dose 5 MG; Start 05/04/17 at 12:00 Nystatin (Nystatin Susp) 5 ml QID PO Last administered on 05/08/17 08:58; Admin Dose 5 ML; Start 05/04/17 at 13:00 Methylprednisolone Sodium Succinate 40 mg 40 mg DAILY IV Last administered on 08:57; Admin Dose 40 MG; Start 05/05/17 at 09:00 Fentanyl (Sublimaze) 100 ml @ 5 mls/hr TITRATE IV Last administered on 17:20; Admin Dose 5 MLS/HR; Start 05/06/17 at 08:30 Amiodarone HCl (Cordarone) 400 mg BID NGT Last administered on 05/08/17 08:58 ; Admin Dose 400 MG; Start 05/06/17 at 18:00 Eye Lubricant (Akwa Oint) 1 applic Q4 PRN BOTH EYES dryness Last administered on 05/08/17 08:59; Admin Dose 1 APPLIC; Start 05/07/17 at 13:00 Miscellaneous Information [facility] This patient otto... PRN PRN XX WOUND CARE; Start 05/07/17 at 13:30 NADIA STRONG May 08, 2017 11:12
--- NOTE | 2017-05-08 12:50 | CONS ---
Date/Time of Note Date/Time of Note DATE: 05/08/17 TIME: 12:48 Assessment/Plan Assessment/Plan Chief Complaint/Hosp Course This is a 87 y/o male with pmh of HTN, HLD, RF on HD, CAD and CABG x 20 yrs ago (1997) Presented to the hospital with VT at a rate of 220 bpm, with a RBBB and inferior axis. The pt required a shock and was sent to the ICU. Per lab notes, Trop was 30 on the day of admission. The pt later in the ICU, required to be intubated. The Echo was done yesterday, the pt has an EF of 30% with mild AI and Mild MR per integrated pest management technician. The ECG did not reveal ST elevation. The family wants everything to be done. He is now on 4 pressors, Levophed, vasopressin, Sena and Dobutamine. The pt is now receiving HD and the BP is 86 systolic. He is on 100% FIO2. 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 05/02/2017 The patient is improving with the LFTs decreasing, the Trop trending down, the FIO2 is now at 50% instead of 100%, He is on 3 pressors and will wean off the pressors again. 05/03/2017 The pt is still on 3 pressors He is using less FIO2 at 40 % The pt will need an A line, attempted it, but could not pass the small wire. Will need kit from the laboratory engineer tomorrow the pt will need to start on Amiodarone drip for HR control and on Digoxin 0.5 mg IV x 1 only the pt will also then need to be slowly weaned off of the pressors. will check ABG in AM. 05/04/2017 the pt is in SR, at 77 bpm.The Amiodarone should be continued for now. No more VT or PVCs either The pt is now on two pressors and on 40 % FiO2 Has a right arm DVT and IJ thrombus Cannot be on Heparin because of thrombocythopenia and requiring platelt transfusion The pt will cont the med tx and hopefuly may be able to able to reduce to one pressor soon. 05/05/2017 The pt is slowly improving Once the pt is off of the drips, he may then be extubated The pt will also need a cath once stable. Will cont the Amiodarone for now and will follow up The nurse will try to titrate off the levophed. 05/06/2017 The pt is seen and examined The nurse is present The pt is improving The pt is only on 3mcg/kg/min of dobutamine and will most likely come off of this and the will be weaned off to extubate him The pt will be on PO amio soon. Then discontinue the IV amio 05/07/2017 The pt is on 2mcg/kg/min of dobutamine only Will stop the dobutamine soon and then will need an angiogram, then will extubate. Will follow up 05/08/2017 The pt is now off of dobutamine The pt is still intubated, on 40 % FiO2. Will need a chest x ray and will need to be weaned off. Will speak with Dr. Montgomery to see if he wants to cath him while intubated or not Problems: Consultation Date/Type/Reason Admit Date/Time Apr 29, 2017 at 19:31 Initial Consult Date 05/02/17 Type of Consultation: Pulmonary/critical care Referring Provider: YENNY WINSTON MD 24 HR Interval Summary Free Text/Dictation The pt is off of dobutamine Exam/Review of Systems Vital Signs Vitals Vital Signs Date Time Temp Pulse Resp B/P Pulse Ox O2 Delivery O2 Flow Rate FiO2 05/08/17 11:40 68 19 100 40 05/08/17 09:30 110/31 05/08/17 09:00 Mechanical Ventilator 05/08/17 07:30 97.7 Intake and Output 05/07/17 05/07/17 05/08/17 15:00 23:00 07:00 Intake Total 560.236 ml 228.604 ml 176 ml Output Total 2300 ml 0 ml 0 ml Balance -1739.764 ml 228.604 ml 176 ml Results Result Diagram: 05/08/17 0400 05/08/17 0400 Results 24 hrs Laboratory Tests Test 05/08/17 04:00 White Blood Count 17.9 H Red Blood Count 2.74 L Hemoglobin 8.9 L Hematocrit 26.9 L Mean Corpuscular Volume 98.2 Mean Corpuscular Hemoglobin 32.5 Mean Corpuscular Hemoglobin Concent 33.1 Red Cell Distribution Width 15.6 H Platelet Count 51 L Mean Platelet Volume 12.1 H Neutrophils % 92.5 H Lymphocytes % 1.9 L Monocytes % 3.8 Eosinophils % 0.0 Basophils % 0.2 Nucleated Red Blood Cells % 0.0 Neutrophils # 16.6 H Lymphocytes # 0.3 L Monocytes # 0.7 Eosinophils # 0.0 Basophils # 0.0 Nucleated Red Blood Cells # 0.0 Prothrombin Time 15.7 H Prothrombin Time Ratio 1.2 INR International Normalized Ratio 1.24 Activated Partial Thromboplast Time 33.2 Thrombin Time 17.7 Fibrinogen 305.0 # Plasma Fibrin Degradation Products >40 and <80 H D-Dimer 9915.22 H D-Dimer Comment Sodium Level 136 Potassium Level 4.2 Chloride Level 101 Carbon Dioxide Level 30 Anion Gap 9 # Blood Urea Nitrogen 60 H Creatinine 5.26 H Glucose Level 93 Calcium Level 7.9 L Magnesium Level 2.0 Medications Medications Current Medications Folic Acid (Folic Acid) 1 mg DAILY PO Last administered on 05/08/17 08:58; Admin Dose 1 MG; Start 04/30/17 at 09:00 Ondansetron HCl (Zofran Inj) 4 mg Q6H PRN IV NAUSEA AND/OR VOMITING Last administered on 05/03/17 23:24; Admin Dose 4 MG; Start 04/29/17 at 20:00 Nitroglycerin (Nitroglycerin (Sl Tab) 0.4 Mg) 1 tab Q5M PRN SL CHEST PAIN; Start 04/29/17 at 20:00 Acetaminophen (Tylenol Liquid) 650 mg Q6H PRN PO PAIN LEVEL 1-3 OR FEVER; Start 04/29/17 at 20:00 Acetaminophen (Tylenol Tab) 650 mg Q6H PRN PO PAIN LEVEL 1-3 OR FEVER; Start at 20:00 Acetaminophen/ Hydrocodone Bitart ([place] (5/325)) 1 tab Q6H PRN PO PAIN LEVEL 4 -6; Start 04/29/17 at 20:00 Zolpidem Tartrate (Ambien) 5 mg QHS PRN PO INSOMNIA; Start 04/29/17 at 20:00 Docusate Sodium (Colace) 100 mg Q12H PRN PO CONSTIPATION; Start 04/29/17 at 20: 00 Bisacodyl (Dulcolax) 5 mg DAILY PRN PO CONSTIPATION; Start 04/29/17 at 20:00 Aspirin 325 mg 325 mg DAILY PO Last administered on 05/08/17 08:58; Admin Dose 325 MG; Start 04/30/17 at 09:00 Vasopressin 60 unit/Dextrose 60 ml @ 1.2 mls/hr Q12H IV Last administered on 01:07; Admin Dose 2.4 MLS/HR; Start 04/30/17 at 13:00 Phenylephrine HCl 80 mg/Dextrose 250 ml @ 18.75 mls/ hr TITRATE IV Last administered on 05/04/17 09:57; Admin Dose 31.87 MLS/HR; Start 04/30/17 at 18: 00 Norepinephrine/ Dextrose (Levophed/D5W) 250 ml @ 0.46 mls/hr TITRATE IV Last administered on 05/06/17 05:15; Admin Dose 0.46 MLS/HR; Start 04/30/17 at 18:00 Pantoprazole (Protonix Iv) 40 mg BID@06,18 IV Last administered on 05/08/17 05 :52; Admin Dose 40 MG; Start 05/02/17 at 18:00 Diphenhydramine HCl 25 mg 25 mg Q4H PRN IV ITCHING Last administered on 16:41; Admin Dose 25 MG; Start 05/02/17 at 08:30 Cefepime HCl 50 ml @ 100 mls/hr Q24H IVPB Last administered on 05/08/17 11:12 ; Admin Dose 100 MLS/HR; Start 05/02/17 at 11:00 Dobutamine HCl/ Dextrose 250 ml @ 4.755 mls/ hr TITRATE IV Last administered on 05/07/17 05:21; Admin Dose 3.804 MLS/HR; Start 05/03/17 at 09:30 Miscellaneous Information 1 ea NOTE XX ; Start 05/03/17 at 13:00 Glucose (Glutose) 15 gm Q15M PRN PO DECREASED GLUCOSE; Start 05/03/17 at 12:45 Glucose (Glutose) 22.5 gm Q15M PRN PO DECREASED GLUCOSE; Start 05/03/17 at 12: 45 Dextrose (D50w Syringe) 25 ml Q15M PRN IV DECREASED GLUCOSE Last administered on 05/03/17 12:48; Admin Dose 25 ML; Start 05/03/17 at 12:45 Dextrose (D50w Syringe) 50 ml Q15M PRN IV DECREASED GLUCOSE; Start 05/03/17 at 12:46 Glucagon (Glucagen) 1 mg Q15M PRN IM DECREASED GLUCOSE; Start 05/03/17 at 12:46 Glucose 15 gm 15 gm Q15M PRN BUCCAL DECREASED GLUCOSE; Start 05/03/17 at 12:46 Midazolam HCl 50 ml @ 1 mls/hr TITRATE IV Last administered on 05/07/17 23:45 ; Admin Dose 2 MLS/HR; Start 05/03/17 at 15:00 Dextrose/Sodium Chloride (D5-NS) 1,000 ml @ 20 mls/hr Q24H IV Last administered on 05/06/17 16:27; Admin Dose 20 MLS/HR; Start 05/03/17 at 16:00 Metoclopramide HCl (Reglan) 5 mg Q6 IV Last administered on 05/08/17 11:11; Admin Dose 5 MG; Start 05/04/17 at 12:00 Nystatin (Nystatin Susp) 5 ml QID PO Last administered on 05/08/17 08:58; Admin Dose 5 ML; Start 05/04/17 at 13:00 Methylprednisolone Sodium Succinate 40 mg 40 mg DAILY IV Last administered on 08:57; Admin Dose 40 MG; Start 05/05/17 at 09:00 Fentanyl (Sublimaze) 100 ml @ 5 mls/hr TITRATE IV Last administered on 17:20; Admin Dose 5 MLS/HR; Start 05/06/17 at 08:30 Amiodarone HCl (Cordarone) 400 mg BID NGT Last administered on 05/08/17 08:58 ; Admin Dose 400 MG; Start 05/06/17 at 18:00 Eye Lubricant (Akwa Oint) 1 applic Q4 PRN BOTH EYES dryness Last administered on 05/08/17 08:59; Admin Dose 1 APPLIC; Start 05/07/17 at 13:00 [facility]isc[facility] This patient otto... PRN PRN XX WOUND CARE; Start 05/07/17 at 13:30 KEVIN PICKERING MD May 08, 2017 12:50
--- NOTE | 2017-05-08 13:34 | PN ---
DATE: 05/08/2017 SUBJECTIVE DATA: No events overnight. No fevers. The patient remains intubated, sedated. He is off pressors. OBJECTIVE DATA: VITAL SIGNS: Temperature 97.7, pulse 64, respirations 10, blood pressure 111/38, and saturation 100 on vent. LABORATORY AND DIAGNOSTIC DATA: WBC 17.9, H and H 8.9 and 26.9, platelets 55, and neutrophils 92.5. INDWELLINGS: Left upper extremity AV fistula, endotracheal tube, NG tube, and right femoral triple lumen catheter. ANTIMICROBIALS: The patient is on IV cefepime. PHYSICAL EXAMINATION: GENERAL: This is a fragile, chronically ill-appearing, elderly man, who is in no distress. HEENT: Head atraumatic, normocephalic. Sclerae anicteric. Buccal mucosa dry. NECK: Supple. CHEST: Rise symmetrical. Breath sounds diminished at the bases. HEART: S1, S2. ABDOMEN: Soft, bowel sounds present. EXTREMITIES: With trace edema. ASSESSMENT: 1. Status post shock, multifactorial. 2. Status post alpha hemolytic strep bacteremia with repeat blood cultures being negative. 3. Acute respiratory failure secondary to fluid overload and possible aspiration. 4. Acute myocardial infarction (AR). 5. History of coronary artery bypass grafting (CABG). 6. Acute anemia with thrombocytopenia. PLAN: 1. The patient remains stable off pressors. 2. Completing treatment for bacteremia. 3. He is being followed by multiple consultants. 4. Continue present care. Dictated By: Chelly Hudson NP /valarie/marifer /Document#: [id number]
--- NOTE | 2017-05-08 14:19 | CONS ---
Date/Time of Note Date/Time of Note DATE: 05/08/17 TIME: 14:12 Assessment/Plan Assessment/Plan Additional Assessment/Plan 1.Acute SC-now downtrending cardiac enzymes without signs of ongoing myocardial necrosis: Awaiting cath 2.Shock-improving hemodynamics now off vasopressors 3.VT-now in SR on amio 4.resp failure s/p intubation 5.renal failure-on HD 6. Leukocytosis 7. Thrombocytopenia-severe ongoing 8. Shock liver 9. CHF-systolic acute on chronic likely with EF 20% by echo this admit Consultation Date/Type/Reason Admit Date/Time Apr 29, 2017 at 19:31 Initial Consult Date 05/02/17 Type of Consultation: Pulmonary/critical care Referring Provider: YENNY WINSTON MD 24 HR Interval Summary Free Text/Dictation ROS:Non verbal Off Dobutamine No fever, no chills, no nausea, no vomiting, no diarrhea/constipation No recent weight changes No edema, no palpitations No chest pain, no PND, no SOB No dizziness, blurred vision No thirst, no heat or cold intolerance Exam/Review of Systems Vital Signs Vitals Vital Signs Date Time Temp Pulse Resp B/P Pulse Ox O2 Delivery O2 Flow Rate FiO2 05/08/17 12:00 66 05/08/17 11:40 19 100 40 05/08/17 09:30 110/31 05/08/17 09:00 Mechanical Ventilator 05/08/17 07:30 97.7 Intake and Output 05/07/17 05/07/17 05/08/17 15:00 23:00 07:00 Intake Total 560.236 ml 228.604 ml 176 ml Output Total 2300 ml 0 ml 0 ml Balance -1739.764 ml 228.604 ml 176 ml Exam Intubated on vent Non communicating General: WN/WD HEENT: Unicetric/atraumatic/ no assymetry NECK: JVD not elevated, no thyromegaly, carotids revealed normal upstrokes Lymph: no lymphadenopathy HEART: regular with no S3, I/ systolic murmur at apex LUNGS: clear ABD: soft, NT, ND, +BS, no organomegaly Neuro: non communicating SKIN: no leisons EXT: no edema Results Result Diagram: 05/08/17 0400 05/08/17 0400 Results 24 hrs Laboratory Tests Test 05/08/17 04:00 White Blood Count 17.9 H Red Blood Count 2.74 L Hemoglobin 8.9 L Hematocrit 26.9 L Mean Corpuscular Volume 98.2 Mean Corpuscular Hemoglobin 32.5 Mean Corpuscular Hemoglobin Concent 33.1 Red Cell Distribution Width 15.6 H Platelet Count 51 L Mean Platelet Volume 12.1 H Neutrophils % 92.5 H Lymphocytes % 1.9 L Monocytes % 3.8 Eosinophils % 0.0 Basophils % 0.2 Nucleated Red Blood Cells % 0.0 Neutrophils # 16.6 H Lymphocytes # 0.3 L Monocytes # 0.7 Eosinophils # 0.0 Basophils # 0.0 Nucleated Red Blood Cells # 0.0 Prothrombin Time 15.7 H Prothrombin Time Ratio 1.2 INR International Normalized Ratio 1.24 Activated Partial Thromboplast Time 33.2 Thrombin Time 17.7 Fibrinogen 305.0 # Plasma Fibrin Degradation Products >40 and <80 H D-Dimer 9915.22 H D-Dimer Comment Sodium Level 136 Potassium Level 4.2 Chloride Level 101 Carbon Dioxide Level 30 Anion Gap 9 # Blood Urea Nitrogen 60 H Creatinine 5.26 H Glucose Level 93 Calcium Level 7.9 L Magnesium Level 2.0 Medications Medications Current Medications Folic Acid (Folic Acid) 1 mg DAILY PO Last administered on 05/08/17 08:58; Admin Dose 1 MG; Start 04/30/17 at 09:00 Ondansetron HCl (Zofran Inj) 4 mg Q6H PRN IV NAUSEA AND/OR VOMITING Last administered on 05/03/17 23:24; Admin Dose 4 MG; Start 04/29/17 at 20:00 Nitroglycerin (Nitroglycerin (Sl Tab) 0.4 Mg) 1 tab Q5M PRN SL CHEST PAIN; Start 04/29/17 at 20:00 Acetaminophen (Tylenol Liquid) 650 mg Q6H PRN PO PAIN LEVEL 1-3 OR FEVER; Start 04/29/17 at 20:00 Acetaminophen (Tylenol Tab) 650 mg Q6H PRN PO PAIN LEVEL 1-3 OR FEVER; Start at 20:00 Acetaminophen/ Hydrocodone Bitart ([place] (5/325)) 1 tab Q6H PRN PO PAIN LEVEL 4 -6; Start 04/29/17 at 20:00 Zolpidem Tartrate (Ambien) 5 mg QHS PRN PO INSOMNIA; Start 04/29/17 at 20:00 Docusate Sodium (Colace) 100 mg Q12H PRN PO CONSTIPATION; Start 04/29/17 at 20: 00 Bisacodyl (Dulcolax) 5 mg DAILY PRN PO CONSTIPATION; Start 04/29/17 at 20:00 Aspirin 325 mg 325 mg DAILY PO Last administered on 05/08/17 08:58; Admin Dose 325 MG; Start 04/30/17 at 09:00 Vasopressin 60 unit/Dextrose 60 ml @ 1.2 mls/hr Q12H IV Last administered on 01:07; Admin Dose 2.4 MLS/HR; Start 04/30/17 at 13:00 Phenylephrine HCl 80 mg/Dextrose 250 ml @ 18.75 mls/ hr TITRATE IV Last administered on 05/04/17 09:57; Admin Dose 31.87 MLS/HR; Start 04/30/17 at 18: 00 Norepinephrine/ Dextrose (Levophed/D5W) 250 ml @ 0.46 mls/hr TITRATE IV Last administered on 05/06/17 05:15; Admin Dose 0.46 MLS/HR; Start 04/30/17 at 18:00 Pantoprazole (Protonix Iv) 40 mg BID@06,18 IV Last administered on 05/08/17 05 :52; Admin Dose 40 MG; Start 05/02/17 at 18:00 Diphenhydramine HCl 25 mg 25 mg Q4H PRN IV ITCHING Last administered on 16:41; Admin Dose 25 MG; Start 05/02/17 at 08:30 Cefepime HCl 50 ml @ 100 mls/hr Q24H IVPB Last administered on 05/08/17 11:12 ; Admin Dose 100 MLS/HR; Start 05/02/17 at 11:00 Dobutamine HCl/ Dextrose 250 ml @ 4.755 mls/ hr TITRATE IV Last administered on 05/07/17 05:21; Admin Dose 3.804 MLS/HR; Start 05/03/17 at 09:30 Miscellaneous Information 1 ea NOTE XX ; Start 05/03/17 at 13:00 Glucose (Glutose) 15 gm Q15M PRN PO DECREASED GLUCOSE; Start 05/03/17 at 12:45 Glucose (Glutose) 22.5 gm Q15M PRN PO DECREASED GLUCOSE; Start 05/03/17 at 12: 45 Dextrose (D50w Syringe) 25 ml Q15M PRN IV DECREASED GLUCOSE Last administered on 05/03/17 12:48; Admin Dose 25 ML; Start 05/03/17 at 12:45 Dextrose (D50w Syringe) 50 ml Q15M PRN IV DECREASED GLUCOSE; Start 05/03/17 at 12:46 Glucagon (Glucagen) 1 mg Q15M PRN IM DECREASED GLUCOSE; Start 05/03/17 at 12:46 Glucose 15 gm 15 gm Q15M PRN BUCCAL DECREASED GLUCOSE; Start 05/03/17 at 12:46 Midazolam HCl 50 ml @ 1 mls/hr TITRATE IV Last administered on 05/07/17 23:45 ; Admin Dose 2 MLS/HR; Start 05/03/17 at 15:00 Dextrose/Sodium Chloride (D5-NS) 1,000 ml @ 20 mls/hr Q24H IV Last administered on 05/06/17 16:27; Admin Dose 20 MLS/HR; Start 05/03/17 at 16:00 Metoclopramide HCl (Reglan) 5 mg Q6 IV Last administered on 05/08/17 11:11; Admin Dose 5 MG; Start 05/04/17 at 12:00 Nystatin (Nystatin Susp) 5 ml QID PO Last administered on 05/08/17 13:22; Admin Dose 5 ML; Start 05/04/17 at 13:00 Methylprednisolone Sodium Succinate 40 mg 40 mg DAILY IV Last administered on 08:57; Admin Dose 40 MG; Start 05/05/17 at 09:00 Fentanyl (Sublimaze) 100 ml @ 5 mls/hr TITRATE IV Last administered on 17:20; Admin Dose 5 MLS/HR; Start 05/06/17 at 08:30 Amiodarone HCl (Cordarone) 400 mg BID NGT Last administered on 05/08/17 08:58 ; Admin Dose 400 MG; Start 05/06/17 at 18:00 Eye Lubricant (Akwa Oint) 1 applic Q4 PRN BOTH EYES dryness Last administered on 05/08/17 08:59; Admin Dose 1 APPLIC; Start 05/07/17 at 13:00 Miscellaneous Information (Pending [facility] Order For Wound Care) This patient otto... PRN PRN XX WOUND CARE; Start 05/07/17 at 13:30 SHAYLA HI MD May 08, 2017 14:19
[2017-05-08] MEDS: DEXTROSE 5%-0.9% NACL 1,000 ML IV SCH (16:39)
[2017-05-09] VITALS (44 sets, daily range): BP systolic 95–157; BP diastolic 43–70; PULSE 58–78; RESP 0–26
[2017-05-09] MEDS: METOCLOPRAMIDE 10 MG INJ IV SCH ×5 (00:24→23:43)
[2017-05-09] MEDS: VASOPRESSIN 60 UNIT in DEXTROSE 5% 57 ML IV SCH ×2 (01:00→13:00)
[2017-05-09] MEDS: IPRATROPIUM (HFA) 12.9 GM INHALER INH SCH ×3 (01:11→13:38)
[2017-05-09] MEDS: ALBUTEROL 18 GM INHALER INH SCH ×3 (01:11→13:37)
[2017-05-09] MEDS: MIDAZOLAM (DRIP) 50 mg/50 mL 50 ML IV SCH (02:14)
[2017-05-09 05:25] LABS: ABNORMAL IP MESSAGE 1; HEMATOCRIT 28.3 % (42.0-52.0); HEMOGLOBIN 9.5 g/dl (14.0-18.0); MEAN CORPUSCULAR HEMOGLOBIN 33.1 pg (29.0-33.0); MEAN CORPUSCULAR HGB CONC 33.6 g/dl (32.0-37.0); MEAN CORPUSCULAR VOLUME 98.6 fl (82.0-101.0); MEAN PLATELET VOLUME 13.5 fl (7.4-10.4); PLATELET COUNT 48 10^3/UL (140-415); POSITIVE DIFF @See below; RED BLOOD COUNT 2.87 10^6/ul (4.70-6.10); RED CELL DISTRIBUTION WIDTH 15.9 % (11.5-14.5); WHITE BLOOD COUNT 21.2 10^3/ul (4.8-10.8)
[2017-05-09 06:02] LABS: INR 1.28; PROTIME 16.1 Sec (12.2-14.2); PT RATIO 1.3
[2017-05-09 06:04] LABS: CALCIUM 7.6 mg/dl (8.4-10.2); CREATININE 5.29 mg/dl (0.61-1.24); POTASSIUM 4.1 mmol/L (3.5-5.1)
[2017-05-09 06:05] LABS: PARTIAL THROMBOPLASTIN TIME 35.4 Sec (25.0-35.0)
[2017-05-09 06:07] LABS: THROMBIN TIME 19.4 SEC (13.8-19.1)
[2017-05-09] MEDS: PANTOPRAZOLE 40 MG INJ IV SCH ×2 (06:23→17:50)
[2017-05-09 06:43] LABS: D-DIMER 8955.45 ng/ml (<460)
[2017-05-09 06:46] LABS: PLATELET COUNT 50 10^3/UL (140-415)
--- NOTE | 2017-05-09 07:22 | PN ---
DATE: 05/07/2017 SUBJECTIVE: On questioning, patient has no complaints and patient is intubated and just had dialysis, and review of systems not available. OBJECTIVE DATA: VITAL SIGNS: On examination his vital signs are stable. The telemetry is showing occasional PVCs. HEART: Regular. LUNGS: Clear. ABDOMEN: Soft. EXTREMITIES: No edema. IMPRESSION: 1. Status post acute myocardial infarction with down-trending cardiac enzymes. 2. Status post shock which is improving now. 3. Respiratory failure. 4. 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 5. Status post ventricular tachycardia. 6. Respiratory insufficiency, and patient is intubated. 7. Renal insufficiency. RECOMMENDATIONS: Continue same treatment. Dictated By: Danis Carreon MD /valarie/ara /Document#: [id number]
[2017-05-09 07:35] LABS: FIBRIN SPLIT PRODUCT >40 and <80 ug/ml (<10)
--- NOTE | 2017-05-09 07:52 | CONS ---
DATE OF ADMISSION: 04/29/2017 DATE OF CONSULTATION: 04/30/2016 REASON FOR CONSULTATION: Status post VT arrest, elevated troponins now. HISTORY OF PRESENT ILLNESS: Mr. Quiñones is an 87-year-old gentleman, patient of Dr. Vo, who has a history of hypertension, dyslipidemia, history of coronary artery disease, history of CABG in 1997, and a history of recent stress test per family about 2-[address] Vo's office which was normal per family report, who presented to the hospital yesterday for VT arrest. The patient was defibrillated in the emergency room, started on amiodarone. His subsequent data showed elevated troponins to 150s. The patient is now in intensive care unit on multiple pressors. Patient appears to be in cardiogenic shock by my interpretation. His preliminary 2D echo shows ejection fraction 25% with anterior hypokinesis. I think the patient will benefit from acute left heart catheterization and possible aortic balloon placement. I discussed decision with Dr. Vo, patient's primary maintenance service dispatcher. He agrees with the plan. Dr. Pritchard, who is wooden shade hardware installer has been contacted and will try to facilitate left heart cath and likely balloon placement shortly. Patient was not dialyzed now in the setting of hypertension. Will make Dr. Burnham aware. PAST MEDICAL HISTORY: 1. Hypertension. 2. Coronary artery disease. 3. History of prior CABG in 1997 with four grafts. 4. History of end-stage renal disease on hemodialysis. 5. History of recent intervention to the left upper extremity fistula. ALLERGIES: NO KNOWN DRUG ALLERGIES. SOCIAL HISTORY: Patient lives at home, does not drink, does not use drugs. FAMILY HISTORY: Negative for sudden cardiac or previous history of coronary artery disease. MEDICATION: Patient now is on vasopressin. He is on dobutamine. I am going to initiate him on heparin drip per protocol, as well as aspirin 325. He is not a candidate for any beta abdon because of the hypertension. REVIEW OF SYSTEMS: GENERAL: No fevers, no chills. Recent cardiac arrest. HEENT: CARDIOVASCULAR: No chest pain reported. RESPIRATORY: Shortness of breath, chronic. GASTROINTESTINAL: No nausea, vomiting. Patient . No dysuria or hematuria. NEUROLOGIC: No focal neurologic deficits. Patient appears to respond through the ventilator. RENAL: History of end-stage renal disease. PSYCHIATRIC: Unknown. PHYSICAL EXAMINATION: VITAL SIGNS: Currently, temperature 98.7, heart rate 68, blood pressure 87/53. GENERAL: He is a well-nourished gentleman in no acute distress. He appears to be respond through the ventilator. HEENT: Head atraumatic, normocephalic, anicteric. NECK: Supple. JVD 8-9 cm. There is no lymphadenopathy or thyromegaly. HEART: Regular. PMI displaced leftward. LUNGS: Coarse with wheezing. ABDOMEN: Distended. Bowel sounds present. There is no hepatosplenomegaly. EXTREMITIES: No clubbing, cyanosis, edema. NEUROLOGIC: He appears to be able to move. His extremities have fairly decent pulse. LABORATORY DATA: White blood cell count 2.0, hemoglobin 10.3. He has platelets 116,000. INR 0.9. Sodium 142, potassium 3.6, BUN 45, creatinine 6.3. His troponin from 137 to 152 now. LDL cholesterol is 108. ECG reviewed by me showed patient with nonspecific ST-T changes but no clear ST elevation anterior noted now. There was VT noted in the emergency department, probably ischemic. ASSESSMENT AND PLAN: 1. Status post VT arrest. Patient is status post ventricular tachycardia arrest, now with elevated troponin and decreased ejection fraction. Patient is critically ill. I had a very lengthy discussion with the family as outlined above. I also communicated with Dr. Vo, his primary maintenance service dispatcher Dr. Pritchard. I think the risks/benefits ratio for this patient is still worth taking the patient to the equipment operator/laborer to see if he will benefit from left heart catheterization and possible stenting and aortic balloon. Family agrees. They are aware of high risk of the procedure and will initiate patient on heparin now. I spoke with Dr. Pritchard and will facilitate the intervention shortly. For now, continue medical optimization. I am going to add dobutamine to his regimen. 2. Ventricular tachycardia. No new episodes, likely ischemic ventricular tachycardia. Will hold off on amiodarone given hypertension. 3. End-stage renal disease. Patient hemodialysis has been held because the patient could not tolerate it because of low blood pressure. 4. Hypertension. Continue support care in the setting with cardiogenic shock. 5. Hypotension. Blood pressure well optimized now. I would like to thank Dr. Burnham for referring this patient for evaluation. Dictated By: MD STEFAN Napoles/valarie/ara /Document#: [id number]
[2017-05-09] MEDS: AMIODARONE 200 MG TAB NGT SCH ×2 (08:11→20:50)
[2017-05-09] MEDS: NYSTATIN SUSP 5 ML CUP PO SCH ×4 (08:11→20:51)
[2017-05-09] MEDS: METHYLPREDNISOLONE 40 MG INJ IV SCH (08:11)
[2017-05-09] MEDS: FOLIC ACID 1 MG TAB PO SCH (08:11)
[2017-05-09] MEDS: ASPIRIN 325 MG TAB PO SCH (08:11)
--- NOTE | 2017-05-09 08:51 | PN ---
Date/Time of Note Date/Time of Note DATE: 05/09/17 TIME: 08:44 Assessment/Plan VTE Prophylaxis VTE Prophylaxis Intervention: contraindicated Lines/Catheters IV Catheter Type (from Nrsg): Central Line Central line still needed: Yes Urinary Cath still in place: No Assessment/Plan Chief Complaint/Hosp Course 87 y/o with # s/p V Tachy/V Fib likely secondary to ischemia on Amiodarone and s/p Digoxin, now sinus # Shock likely Cardiogenic with AMI with Tropinins 150 on 3 pressors> downtrending Troponin to 40>15>7 likely combination of sepsis with Strep bactermia however repeat bld cx negative. Sputum cx+nelly. Currently off pressors # ESRD on HD thru fistula, now more edematous s/p daily HD # Acute on chronic heart failure with EF 30% # Shock liver improving LFTs with improving ischemia # Lactic acidosis improved # Respiratory failure on Vent # Thrombocytopenia s/p 1 unit platelets likley due to shock liver now improved # Anemia S/P 2 units PRBC # Right arm DVT but could not be on anticoagulation due to thrombocytopenia Recs - Currently stable off pressors - Will talk to Dr Montgomery for possible LHC today and possible restarting Heparin - c/w ASA 325 mg - HD today - c/w Amiodarone 400 bid - c/w cefepime and repeat Bld cx negative so far, c/w Nystatin - c/w Hydrocortisone to 40 q daily -- On FI02 40% , Vent management per Pulmonary, would consider weaning trials - Assess daily for HD needs - c/w TF Problems: Subjective 24 Hr Interval Summary Free Text/Dictation s/p HD yesterday with removal of 2 L Off pressors Pt is following commands Plt count 50 today Lower ext and upper ext cold Exam/Review of Systems Vital Signs Vitals Vital Signs Date Time Temp Pulse Resp B/P Pulse Ox O2 Delivery O2 Flow Rate FiO2 05/09/17 07:00 61 16 100 30 05/09/17 06:00 104/47 Mechanical Ventilator 05/09/17 04:00 97.7 Intake and Output 05/08/17 05/08/17 05/09/17 15:00 23:00 07:00 Intake Total 796 ml 321 ml 319 ml Output Total 2500 ml 2000 ml 0 ml Balance -1704 ml -1679 ml 319 ml Exam General:Intubated, opens eyes and follows commands NECK: JVD elevated, no thyromegaly Lymph: no lymphadenopathy HEART: regular with no S3, BRANDI LUNGS: decreased breath sounds b/l ABD: soft, NT, ND, +BS Neuro: non focal SKIN: chronic changes EXT: Edema arms 2+ more on rta arm>left +cold ext ble and upper ext, pulses present Results Result Diagram: 05/09/17 0430 05/09/17 0430 Results 24 hrs Laboratory Tests Test 05/09/17 04:30 White Blood Count 21.2 H Red Blood Count 2.87 L Hemoglobin 9.5 L Hematocrit 28.3 L Mean Corpuscular Volume 98.6 Mean Corpuscular Hemoglobin 33.1 H Mean Corpuscular Hemoglobin Concent 33.6 Red Cell Distribution Width 15.9 H Platelet Count 50 L Mean Platelet Volume 13.5 H Neutrophils % Lymphocytes % Monocytes % Eosinophils % Basophils % Nucleated Red Blood Cells % 0.0 Neutrophils # Lymphocytes # Monocytes # Eosinophils # Basophils # Nucleated Red Blood Cells # Prothrombin Time 16.1 H Prothrombin Time Ratio 1.3 INR International Normalized Ratio 1.28 Activated Partial Thromboplast Time 35.4 H Thrombin Time 19.4 H Fibrinogen 291.0 Plasma Fibrin Degradation Products >40 and <80 H D-Dimer 8955.45 H D-Dimer Comment Sodium Level 137 Potassium Level 4.1 Chloride Level 102 Carbon Dioxide Level 29 Anion Gap 10 Blood Urea Nitrogen 65 H Creatinine 5.29 H Glucose Level 124 Calcium Level 7.6 L Magnesium Level 2.1 Medications Medications Current Medications Folic Acid (Folic Acid) 1 mg DAILY PO Last administered on 05/09/17 08:11; Admin Dose 1 MG; Start 04/30/17 at 09:00 Ondansetron HCl (Zofran Inj) 4 mg Q6H PRN IV NAUSEA AND/OR VOMITING Last administered on 05/03/17 23:24; Admin Dose 4 MG; Start 04/29/17 at 20:00 Nitroglycerin (Nitroglycerin (Sl Tab) 0.4 Mg) 1 tab Q5M PRN SL CHEST PAIN; Start 04/29/17 at 20:00 Acetaminophen (Tylenol Liquid) 650 mg Q6H PRN PO PAIN LEVEL 1-3 OR FEVER; Start 04/29/17 at 20:00 Acetaminophen (Tylenol Tab) 650 mg Q6H PRN PO PAIN LEVEL 1-3 OR FEVER; Start at 20:00 Acetaminophen/ Hydrocodone Bitart ([place] (5/325)) 1 tab Q6H PRN PO PAIN LEVEL 4 -6; Start 04/29/17 at 20:00 Zolpidem Tartrate (Ambien) 5 mg QHS PRN PO INSOMNIA; Start 04/29/17 at 20:00 Docusate Sodium (Colace) 100 mg Q12H PRN PO CONSTIPATION; Start 04/29/17 at 20: 00 Bisacodyl (Dulcolax) 5 mg DAILY PRN PO CONSTIPATION; Start 04/29/17 at 20:00 Aspirin 325 mg 325 mg DAILY PO Last administered on 05/09/17 08:11; Admin Dose 325 MG; Start 04/30/17 at 09:00 Vasopressin 60 unit/Dextrose 60 ml @ 1.2 mls/hr Q12H IV Last administered on 01:07; Admin Dose 2.4 MLS/HR; Start 04/30/17 at 13:00 Phenylephrine HCl 80 mg/Dextrose 250 ml @ 18.75 mls/ hr TITRATE IV Last administered on 05/04/17 09:57; Admin Dose 31.87 MLS/HR; Start 04/30/17 at 18: 00 Norepinephrine/ Dextrose (Levophed/D5W) 250 ml @ 0.46 mls/hr TITRATE IV Last administered on 05/06/17 05:15; Admin Dose 0.46 MLS/HR; Start 04/30/17 at 18:00 Pantoprazole (Protonix Iv) 40 mg BID@06,18 IV Last administered on 05/09/17 06 :23; Admin Dose 40 MG; Start 05/02/17 at 18:00 Diphenhydramine HCl 25 mg 25 mg Q4H PRN IV ITCHING Last administered on 16:41; Admin Dose 25 MG; Start 05/02/17 at 08:30 Cefepime HCl 50 ml @ 100 mls/hr Q24H IVPB Last administered on 05/08/17 11:12 ; Admin Dose 100 MLS/HR; Start 05/02/17 at 11:00 Dobutamine HCl/ Dextrose 250 ml @ 4.755 mls/ hr TITRATE IV Last administered on 05/07/17 05:21; Admin Dose 3.804 MLS/HR; Start 05/03/17 at 09:30 Miscellaneous Information 1 ea NOTE XX ; Start 05/03/17 at 13:00 Glucose (Glutose) 15 gm Q15M PRN PO DECREASED GLUCOSE; Start 05/03/17 at 12:45 Glucose (Glutose) 22.5 gm Q15M PRN PO DECREASED GLUCOSE; Start 05/03/17 at 12: 45 Dextrose (D50w Syringe) 25 ml Q15M PRN IV DECREASED GLUCOSE Last administered on 05/03/17 12:48; Admin Dose 25 ML; Start 05/03/17 at 12:45 Dextrose (D50w Syringe) 50 ml Q15M PRN IV DECREASED GLUCOSE; Start 05/03/17 at 12:46 Glucagon (Glucagen) 1 mg Q15M PRN IM DECREASED GLUCOSE; Start 05/03/17 at 12:46 Glucose 15 gm 15 gm Q15M PRN BUCCAL DECREASED GLUCOSE; Start 05/03/17 at 12:46 Midazolam HCl 50 ml @ 1 mls/hr TITRATE IV Last administered on 05/09/17 02:14 ; Admin Dose 3 MLS/HR; Start 05/03/17 at 15:00 Dextrose/Sodium Chloride (D5-NS) 1,000 ml @ 20 mls/hr Q24H IV Last administered on 05/08/17 16:39; Admin Dose 20 MLS/HR; Start 05/03/17 at 16:00 Metoclopramide HCl (Reglan) 5 mg Q6 IV Last administered on 05/09/17 06:23; Admin Dose 5 MG; Start 05/04/17 at 12:00 Nystatin (Nystatin Susp) 5 ml QID PO Last administered on 05/09/17 08:11; Admin Dose 5 ML; Start 05/04/17 at 13:00 Methylprednisolone Sodium Succinate 40 mg 40 mg DAILY IV Last administered on 08:11; Admin Dose 40 MG; Start 05/05/17 at 09:00 Fentanyl (Sublimaze) 100 ml @ 5 mls/hr TITRATE IV Last administered on 17:20; Admin Dose 5 MLS/HR; Start 05/06/17 at 08:30 Amiodarone HCl (Cordarone) 400 mg BID NGT Last administered on 05/09/17 08:11 ; Admin Dose 400 MG; Start 05/06/17 at 18:00 Eye Lubricant (Akwa Oint) 1 applic Q4 PRN BOTH EYES dryness Last administered on 05/08/17 08:59; Admin Dose 1 APPLIC; Start 05/07/17 at 13:00 Miscellaneous Information (Pending [facility] Order For Wound Care) This patient otto... PRN PRN XX WOUND CARE; Start 05/07/17 at 13:30 ARNULFO BLEVINS MD May 09, 2017 08:51
--- NOTE | 2017-05-09 08:52 | RADRPT ---
PROCEDURE: XR Chest 1 View. CLINICAL INDICATION: Shortness of breath. TECHNIQUE: AP view of the chest was obtained. COMPARISON: May 07, 2017 FINDINGS: The heart size is within normal limits. Calcified atherosclerosis is noted in the aorta. Endotrache al tube is stable and appears in grossly appropriate location. Nasogastric tube has its distal end i n the expected location of the stomach. Central pulmonary vascular congestion and interstitial promi nence in both lungs is unchanged. Retrocardiac opacity is stable. Scattered atelectasis is seen in t he right lower lobe. Osseous structures are intact. IMPRESSION: Calcified atherosclerosis in the aorta. Stable central pulmonary vascular congestion and mild interstitial prominence in both lungs. Stable retrocardiac opacity that may reflect left lower lobe atelectasis or infiltrate combined with small pleural effusion. Scattered atelectasis in the right lower lobe. Nasogastric tube with its distal end in the expected location of the stomach. RPTAT: AA .Zuhair Norman MD, Date Time Electronically viewed and signed by .Zuhair Norman MD, on 05/09/2017 08:51 .P/
[2017-05-09 08:58] LABS: ANISOCYTOSIS 1+ (0-0); GIANT THROMBO% (M) 2 % (0-0); HYPOCHROMASIA 1+ (0-0); PLATELET ESTIMATE DECREASED; POIKILOCYTOSIS 1+ (0-0)
[2017-05-09 08:59] LABS: BASOPHILS % 0.2 % (0.0-2.0); LYMPHOCYTES # 0.5 10^3/ul (0.8-2.9); LYMPHOCYTES % 2.6 % (15.0-51.0); MONOCYTE # 0.9 10^3/ul (0.3-0.9); MONOCYTES % 4.2 % (0.0-11.0); NEUTROPHIL # 18.8 10^3/ul (1.6-7.5); NEUTROPHILS % 91.4 % (39.0-77.0)
--- NOTE | 2017-05-09 10:29 | CONS ---
Date/Time of Note Date/Time of Note DATE: 05/09/17 TIME: 10:25 Assessment/Plan Assessment/Plan Chief Complaint/Hosp Course #Thrombocytopenia -now improved and > 50K. pt has not needed transfusion since 05/06 -this is secondary to shock liver as evidenced by the markedly elevated AST/ALT (>7000/5000). Liver enzymes have greatly improved -no evidence of hemolytic anemia -will continue to check daily DIC panel and transfuse 1 unit cryo if fibrinogen is < 150. fibrinogen is currently > 300 -given platelet count is > 50K, ok with restarting anticoagulation if cleared with cardiology -would recommend platelet transfusion prior to left heart cath to minimize bleeding risk. can also run platelets during the procedure #Anemia -2/2 shock, sepsis and questionable bleed -Hg is currently stable #Cardiogenic shock with shock liver -management per cardiology -patient currently on ionotropic support -pt will need cath once his platelets recover #ESRD wit acidosis -continue HD as tolerated. currently blood pressure is very labile #Respiratory failure -currently intubated -cont management per pulmonary Problems: Consultation Date/Type/Reason Admit Date/Time Apr 29, 2017 at 19:31 Initial Consult Date 05/02/17 Type of Consultation: Hematology Reason for Consultation thrombocytopenia Referring Provider: YENNY WINSTON MD 24 HR Interval Summary Free Text/Dictation pt currently not bleeding. platelets have stabilized. pt back on ASA Exam/Review of Systems Vital Signs Vitals Vital Signs Date Time Temp Pulse Resp B/P Pulse Ox O2 Delivery O2 Flow Rate FiO2 05/09/17 10:17 67 05/09/17 08:30 14 05/09/17 07:00 100 30 05/09/17 06:00 104/47 Mechanical Ventilator 05/09/17 04:00 97.7 Intake and Output 05/08/17 05/08/17 05/09/17 15:00 23:00 07:00 Intake Total 796 ml 321 ml 319 ml Output Total 2500 ml 2000 ml 0 ml Balance -1704 ml -1679 ml 319 ml Exam Constitutional: frail Eyes: nl conjunctiva ENMT: intubated, nl external ears & nose Neck: supple Respiratory: clear to auscultation Cardiovascular: regular rate and rhythm Gastrointestinal: soft Extremities: normal pulses Results Result Diagram: 05/09/17 0430 05/09/17 0430 Results 24 hrs Laboratory Tests Test 05/09/17 04:30 White Blood Count 21.2 H Red Blood Count 2.87 L Hemoglobin 9.5 L Hematocrit 28.3 L Mean Corpuscular Volume 98.6 Mean Corpuscular Hemoglobin 33.1 H Mean Corpuscular Hemoglobin Concent 33.6 Red Cell Distribution Width 15.9 H Platelet Count 50 L Mean Platelet Volume 13.5 H Neutrophils % 91.4 H Segmented Neutrophils % (Manual) 94 H Band Neutrophils % (Manual) 5 H Lymphocytes % 2.6 L Lymphocytes % (Manual) 1 L Monocytes % 4.2 Eosinophils % 0.0 Basophils % 0.2 Nucleated Red Blood Cells % 0.0 Neutrophils # 18.8 H Neutrophils # (Manual) 20.1 H Band Neutrophils # 1.0 H Absolute Lymphocytes (Manual) 0.2 L Lymphocytes # 0.5 L Monocytes # 0.9 Eosinophils # 0.0 Basophils # 0.0 Nucleated Red Blood Cells # 0.0 Platelet Estimate DECREASED Giant Platelets 2 H Hypochromasia 1+ Poikilocytosis 1+ Anisocytosis 1+ Macrocytosis 1+ Prothrombin Time 16.1 H Prothrombin Time Ratio 1.3 INR International Normalized Ratio 1.28 Activated Partial Thromboplast Time 35.4 H Thrombin Time 19.4 H Fibrinogen 291.0 Plasma Fibrin Degradation Products >40 and <80 H D-Dimer 8955.45 H D-Dimer Comment Sodium Level 137 Potassium Level 4.1 Chloride Level 102 Carbon Dioxide Level 29 Anion Gap 10 Blood Urea Nitrogen 65 H Creatinine 5.29 H Glucose Level 124 Calcium Level 7.6 L Magnesium Level 2.1 Medications Medications Current Medications Folic Acid (Folic Acid) 1 mg DAILY PO Last administered on 05/09/17 08:11; Admin Dose 1 MG; Start 04/30/17 at 09:00 Ondansetron HCl (Zofran Inj) 4 mg Q6H PRN IV NAUSEA AND/OR VOMITING Last administered on 05/03/17 23:24; Admin Dose 4 MG; Start 04/29/17 at 20:00 Nitroglycerin (Nitroglycerin (Sl Tab) 0.4 Mg) 1 tab Q5M PRN SL CHEST PAIN; Start 04/29/17 at 20:00 Acetaminophen (Tylenol Liquid) 650 mg Q6H PRN PO PAIN LEVEL 1-3 OR FEVER; Start 04/29/17 at 20:00 Acetaminophen (Tylenol Tab) 650 mg Q6H PRN PO PAIN LEVEL 1-3 OR FEVER; Start at 20:00 Acetaminophen/ Hydrocodone Bitart ([place] (5/325)) 1 tab Q6H PRN PO PAIN LEVEL 4 -6; Start 04/29/17 at 20:00 Zolpidem Tartrate (Ambien) 5 mg QHS PRN PO INSOMNIA; Start 04/29/17 at 20:00 Docusate Sodium (Colace) 100 mg Q12H PRN PO CONSTIPATION; Start 04/29/17 at 20: 00 Bisacodyl (Dulcolax) 5 mg DAILY PRN PO CONSTIPATION; Start 04/29/17 at 20:00 Aspirin 325 mg 325 mg DAILY PO Last administered on 05/09/17 08:11; Admin Dose 325 MG; Start 04/30/17 at 09:00 Vasopressin 60 unit/Dextrose 60 ml @ 1.2 mls/hr Q12H IV Last administered on 01:07; Admin Dose 2.4 MLS/HR; Start 04/30/17 at 13:00 Phenylephrine HCl 80 mg/Dextrose 250 ml @ 18.75 mls/ hr TITRATE IV Last administered on 05/04/17 09:57; Admin Dose 31.87 MLS/HR; Start 04/30/17 at 18: 00 Norepinephrine/ Dextrose (Levophed/D5W) 250 ml @ 0.46 mls/hr TITRATE IV Last administered on 05/06/17 05:15; Admin Dose 0.46 MLS/HR; Start 04/30/17 at 18:00 Pantoprazole (Protonix Iv) 40 mg BID@06,18 IV Last administered on 05/09/17 06 :23; Admin Dose 40 MG; Start 05/02/17 at 18:00 Diphenhydramine HCl 25 mg 25 mg Q4H PRN IV ITCHING Last administered on 16:41; Admin Dose 25 MG; Start 05/02/17 at 08:30 Cefepime HCl 50 ml @ 100 mls/hr Q24H IVPB Last administered on 05/08/17 11:12 ; Admin Dose 100 MLS/HR; Start 05/02/17 at 11:00 Dobutamine HCl/ Dextrose 250 ml @ 4.755 mls/ hr TITRATE IV Last administered on 05/07/17 05:21; Admin Dose 3.804 MLS/HR; Start 05/03/17 at 09:30 Miscellaneous Information 1 ea NOTE XX ; Start 05/03/17 at 13:00 Glucose (Glutose) 15 gm Q15M PRN PO DECREASED GLUCOSE; Start 05/03/17 at 12:45 Glucose (Glutose) 22.5 gm Q15M PRN PO DECREASED GLUCOSE; Start 05/03/17 at 12: 45 Dextrose (D50w Syringe) 25 ml Q15M PRN IV DECREASED GLUCOSE Last administered on 05/03/17 12:48; Admin Dose 25 ML; Start 05/03/17 at 12:45 Dextrose (D50w Syringe) 50 ml Q15M PRN IV DECREASED GLUCOSE; Start 05/03/17 at 12:46 Glucagon (Glucagen) 1 mg Q15M PRN IM DECREASED GLUCOSE; Start 05/03/17 at 12:46 Glucose 15 gm 15 gm Q15M PRN BUCCAL DECREASED GLUCOSE; Start 05/03/17 at 12:46 Midazolam HCl 50 ml @ 1 mls/hr TITRATE IV Last administered on 05/09/17 02:14 ; Admin Dose 3 MLS/HR; Start 05/03/17 at 15:00 Dextrose/Sodium Chloride (D5-NS) 1,000 ml @ 20 mls/hr Q24H IV Last administered on 05/08/17 16:39; Admin Dose 20 MLS/HR; Start 05/03/17 at 16:00 Metoclopramide HCl (Reglan) 5 mg Q6 IV Last administered on 05/09/17 06:23; Admin Dose 5 MG; Start 05/04/17 at 12:00 Nystatin (Nystatin Susp) 5 ml QID PO Last administered on 05/09/17 08:11; Admin Dose 5 ML; Start 05/04/17 at 13:00 Methylprednisolone Sodium Succinate 40 mg 40 mg DAILY IV Last administered on 08:11; Admin Dose 40 MG; Start 05/05/17 at 09:00 Fentanyl (Sublimaze) 100 ml @ 5 mls/hr TITRATE IV Last administered on 17:20; Admin Dose 5 MLS/HR; Start 05/06/17 at 08:30 Amiodarone HCl (Cordarone) 400 mg BID NGT Last administered on 05/09/17 08:11 ; Admin Dose 400 MG; Start 05/06/17 at 18:00 Eye Lubricant (Akwa Oint) 1 applic Q4 PRN BOTH EYES dryness Last administered on 05/08/17 08:59; Admin Dose 1 APPLIC; Start 05/07/17 at 13:00 Miscellaneous Information (Pending [facility] Order For Wound Care) This patient otto... PRN PRN XX WOUND CARE; Start 05/07/17 at 13:30 JEFF HANSON M.D. May 09, 2017 10:29
--- NOTE | 2017-05-09 10:44 | CONS ---
Date/Time of Note Date/Time of Note DATE: 05/09/17 TIME: 10:41 Assessment/Plan Assessment/Plan Additional Assessment/Plan Ventilator setting; AC of 16, tidal volume 500, PEEP of 5, 30% FiO2. Next Patient is currently on Versed 1 mg/h. Assessment and recommendations; 1. Patient admitted with severe cardiogenic shock with marked overall clinical and radiological improvement. 2. Possibly superimposed pneumonia. 3. Chronic renal failure, on hemodialysis. 4. History of prior CABG. 5. Anemia and severe thrombocytopenia. 6. Upper GI bleed with interval resolution. Discontinue Versed. Patient has been switched to CPAP mode and currently has excellent parameters. Once he is off hemodialysis ABG will be performed and if it is adequate he will be extubated. I did have a very detailed discussion patient's daughter at bedside and answered all her questions. 35 minutes of critical care time was spent evaluating the patient. Consultation Date/Type/Reason Admit Date/Time Apr 29, 2017 at 19:31 Initial Consult Date 05/01/17 Type of Consultation: Pulmonary/critical care Referring Provider: YENNY WINSTON MD 24 HR Interval Summary Free Text/Dictation Patient's condition remains critical but stable has been off pressor support now. Currently getting hemodialysis at bedside. Despite being on Versed drip patient is completely awake and follows simple commands. General exam; elderly male, orally intubated, awake, currently in no distress. Exam/Review of Systems Vital Signs Vitals Vital Signs Date Time Temp Pulse Resp B/P Pulse Ox O2 Delivery O2 Flow Rate FiO2 05/09/17 10:17 67 05/09/17 08:30 14 05/09/17 08:00 30 05/09/17 07:00 100 05/09/17 06:00 104/47 Mechanical Ventilator 05/09/17 04:00 97.7 Intake and Output 05/08/17 05/08/17 05/09/17 15:00 23:00 07:00 Intake Total 796 ml 321 ml 319 ml Output Total 2500 ml 2000 ml 0 ml Balance -1704 ml -1679 ml 319 ml Exam HEENT exam; supple neck, positive JVD. No lymphadenopathy. Midline trachea. No thyromegaly. Patient has bilateral intraocular lens implants. Has multiple carious teeth. Orally intubated. Chest exam; diminished but clear breath sounds. S1-S2 audible, no murmurs. There is a well-healed sternal scar. Abdomen exam; soft, no organomegaly. Nontender. Nondistended. Bowel sounds audible. Extremity exam; trace edema. MAINTENANCE TECHNICIAN 3RD SHIFT exam; patient is awake and follows simple commands. Results Result Diagram: 05/09/17 0430 05/09/17 0430 Results 24 hrs Laboratory Tests Test 05/09/17 04:30 White Blood Count 21.2 H Red Blood Count 2.87 L Hemoglobin 9.5 L Hematocrit 28.3 L Mean Corpuscular Volume 98.6 Mean Corpuscular Hemoglobin 33.1 H Mean Corpuscular Hemoglobin Concent 33.6 Red Cell Distribution Width 15.9 H Platelet Count 50 L Mean Platelet Volume 13.5 H Neutrophils % 91.4 H Segmented Neutrophils % (Manual) 94 H Band Neutrophils % (Manual) 5 H Lymphocytes % 2.6 L Lymphocytes % (Manual) 1 L Monocytes % 4.2 Eosinophils % 0.0 Basophils % 0.2 Nucleated Red Blood Cells % 0.0 Neutrophils # 18.8 H Neutrophils # (Manual) 20.1 H Band Neutrophils # 1.0 H Absolute Lymphocytes (Manual) 0.2 L Lymphocytes # 0.5 L Monocytes # 0.9 Eosinophils # 0.0 Basophils # 0.0 Nucleated Red Blood Cells # 0.0 Platelet Estimate DECREASED Giant Platelets 2 H Hypochromasia 1+ Poikilocytosis 1+ Anisocytosis 1+ Macrocytosis 1+ Prothrombin Time 16.1 H Prothrombin Time Ratio 1.3 INR International Normalized Ratio 1.28 Activated Partial Thromboplast Time 35.4 H Thrombin Time 19.4 H Fibrinogen 291.0 Plasma Fibrin Degradation Products >40 and <80 H D-Dimer 8955.45 H D-Dimer Comment Sodium Level 137 Potassium Level 4.1 Chloride Level 102 Carbon Dioxide Level 29 Anion Gap 10 Blood Urea Nitrogen 65 H Creatinine 5.29 H Glucose Level 124 Calcium Level 7.6 L Magnesium Level 2.1 Medications Medications Current Medications Folic Acid (Folic Acid) 1 mg DAILY PO Last administered on 05/09/17 08:11; Admin Dose 1 MG; Start 04/30/17 at 09:00 Ondansetron HCl (Zofran Inj) 4 mg Q6H PRN IV NAUSEA AND/OR VOMITING Last administered on 05/03/17 23:24; Admin Dose 4 MG; Start 04/29/17 at 20:00 Nitroglycerin (Nitroglycerin (Sl Tab) 0.4 Mg) 1 tab Q5M PRN SL CHEST PAIN; Start 04/29/17 at 20:00 Acetaminophen (Tylenol Liquid) 650 mg Q6H PRN PO PAIN LEVEL 1-3 OR FEVER; Start 04/29/17 at 20:00 Acetaminophen (Tylenol Tab) 650 mg Q6H PRN PO PAIN LEVEL 1-3 OR FEVER; Start at 20:00 Acetaminophen/ Hydrocodone Bitart ([place] (5/325)) 1 tab Q6H PRN PO PAIN LEVEL 4 -6; Start 04/29/17 at 20:00 Zolpidem Tartrate (Ambien) 5 mg QHS PRN PO INSOMNIA; Start 04/29/17 at 20:00 Docusate Sodium (Colace) 100 mg Q12H PRN PO CONSTIPATION; Start 04/29/17 at 20: 00 Bisacodyl (Dulcolax) 5 mg DAILY PRN PO CONSTIPATION; Start 04/29/17 at 20:00 Aspirin 325 mg 325 mg DAILY PO Last administered on 05/09/17 08:11; Admin Dose 325 MG; Start 04/30/17 at 09:00 Vasopressin 60 unit/Dextrose 60 ml @ 1.2 mls/hr Q12H IV Last administered on 01:07; Admin Dose 2.4 MLS/HR; Start 04/30/17 at 13:00 Phenylephrine HCl 80 mg/Dextrose 250 ml @ 18.75 mls/ hr TITRATE IV Last administered on 05/04/17 09:57; Admin Dose 31.87 MLS/HR; Start 04/30/17 at 18: 00 Norepinephrine/ Dextrose (Levophed/D5W) 250 ml @ 0.46 mls/hr TITRATE IV Last administered on 05/06/17 05:15; Admin Dose 0.46 MLS/HR; Start 04/30/17 at 18:00 Pantoprazole (Protonix Iv) 40 mg BID@06,18 IV Last administered on 05/09/17 06 :23; Admin Dose 40 MG; Start 05/02/17 at 18:00 Diphenhydramine HCl 25 mg 25 mg Q4H PRN IV ITCHING Last administered on 16:41; Admin Dose 25 MG; Start 05/02/17 at 08:30 Cefepime HCl 50 ml @ 100 mls/hr Q24H IVPB Last administered on 05/08/17 11:12 ; Admin Dose 100 MLS/HR; Start 05/02/17 at 11:00 Dobutamine HCl/ Dextrose 250 ml @ 4.755 mls/ hr TITRATE IV Last administered on 05/07/17 05:21; Admin Dose 3.804 MLS/HR; Start 05/03/17 at 09:30 Miscellaneous Information 1 ea NOTE XX ; Start 05/03/17 at 13:00 Glucose (Glutose) 15 gm Q15M PRN PO DECREASED GLUCOSE; Start 05/03/17 at 12:45 Glucose (Glutose) 22.5 gm Q15M PRN PO DECREASED GLUCOSE; Start 05/03/17 at 12: 45 Dextrose (D50w Syringe) 25 ml Q15M PRN IV DECREASED GLUCOSE Last administered on 05/03/17 12:48; Admin Dose 25 ML; Start 05/03/17 at 12:45 Dextrose (D50w Syringe) 50 ml Q15M PRN IV DECREASED GLUCOSE; Start 05/03/17 at 12:46 Glucagon (Glucagen) 1 mg Q15M PRN IM DECREASED GLUCOSE; Start 05/03/17 at 12:46 Glucose 15 gm 15 gm Q15M PRN BUCCAL DECREASED GLUCOSE; Start 05/03/17 at 12:46 Midazolam HCl 50 ml @ 1 mls/hr TITRATE IV Last administered on 05/09/17 02:14 ; Admin Dose 3 MLS/HR; Start 05/03/17 at 15:00 Dextrose/Sodium Chloride (D5-NS) 1,000 ml @ 20 mls/hr Q24H IV Last administered on 05/08/17 16:39; Admin Dose 20 MLS/HR; Start 05/03/17 at 16:00 Metoclopramide HCl (Reglan) 5 mg Q6 IV Last administered on 05/09/17 06:23; Admin Dose 5 MG; Start 05/04/17 at 12:00 Nystatin (Nystatin Susp) 5 ml QID PO Last administered on 05/09/17 08:11; Admin Dose 5 ML; Start 05/04/17 at 13:00 Methylprednisolone Sodium Succinate 40 mg 40 mg DAILY IV Last administered on 08:11; Admin Dose 40 MG; Start 05/05/17 at 09:00 Fentanyl (Sublimaze) 100 ml @ 5 mls/hr TITRATE IV Last administered on 17:20; Admin Dose 5 MLS/HR; Start 05/06/17 at 08:30 Amiodarone HCl (Cordarone) 400 mg BID NGT Last administered on 05/09/17 08:11 ; Admin Dose 400 MG; Start 05/06/17 at 18:00 Eye Lubricant (Akwa Oint) 1 applic Q4 PRN BOTH EYES dryness Last administered on 05/08/17 08:59; Admin Dose 1 APPLIC; Start 05/07/17 at 13:00 Miscellaneous [facility] This patient otto... PRN PRN XX WOUND CARE; Start 05/07/17 at 13:30 CHARLES EMMANUEL May 09, 2017 10:44
--- NOTE | 2017-05-09 10:59 | CONS ---
Date/Time of Note Date/Time of Note DATE: 05/09/17 TIME: 10:47 Assessment/Plan Assessment/Plan Chief Complaint/Hosp Course IMP: 1.Acute [place]-now downtrending cardiac enzymes without signs of ongoing myocardial necrosis 2.Shock-improved off of all inotropes and pressors 3.VT-now in SR on amio PO 4.resp failure s/p intubation 5.renal failure-on HD 6. Leukocytosis 7. Thrombocytopenia-slowly improving 8. Shock liver-improving 9. CHF-systolic acute on chronic likely with EF 20% by echo this admit Recc: -Continue ICU monitoring -Continue amio PO -Continue to trend cardiac enzymes -Follow platelet count with asa only as tolerated following platelet count closely. -Heparin still on hold given low platelets -Will consider LHC later this week if platelet count continues to rise/remain stable -F/U cx data and continue abx's -HD for volume removal as tolerated -transfuse platelets as necessary -wean vent as tolerated -start low dose BB/ACEI and follow HD closely -POssible lexiscan or viability study to be done prior to cath as possible -repeat echo to reassess ef Problems: Consultation Date/Type/Reason Admit Date/Time Apr 29, 2017 at 19:31 Initial Consult Date 05/02/17 Type of Consultation: cardiology Reason for Consultation cardiogenic shock/acute [place] Referring Provider: YENNY WINSTON MD Exam/Review of Systems Vital Signs Vitals Vital Signs Date Time Temp Pulse Resp B/P Pulse Ox O2 Delivery O2 Flow Rate FiO2 05/09/17 10:30 78 19 118/56 100 05/09/17 10:00 Mechanical Ventilator 05/09/17 08:00 30 05/09/17 08:00 98.1 Intake and Output 05/08/17 05/08/17 05/09/17 15:00 23:00 07:00 Intake Total 796 ml 321 ml 319 ml Output Total 2500 ml 2000 ml 0 ml Balance -1704 ml -1679 ml 319 ml Exam Review of Systems: CONSTITUTIONAL: No fevers, chills. PULMONARY: intubated CARDIOVASCULAR: No chest pain/palpitations GASTROINTESTINAL: No nausea/vomiting. GENITOURINARY: No hematuria/dysuria. MUSCULOSKELETAL: No myagias/arthalgias. PSYCHIATRIC: The patient denies depression. NEUROLOGIC: No weakness Constitutional: other (seadted) Psych: no complaints Head: normocephalic ENMT: mucosa pink and moist Neck: jvd, supple Respiratory: other (upper airway rhonchi) Cardiovascular: regular rate and rhythm Gastrointestinal: soft Musculoskeletal: muscle tone (normal) Extremities: edema (none) Neurological: other Results Result Diagram: 05/09/17 0430 05/09/17 0430 Results 24 hrs Laboratory Tests Test 05/09/17 04:30 White Blood Count 21.2 H Red Blood Count 2.87 L Hemoglobin 9.5 L Hematocrit 28.3 L Mean Corpuscular Volume 98.6 Mean Corpuscular Hemoglobin 33.1 H Mean Corpuscular Hemoglobin Concent 33.6 Red Cell Distribution Width 15.9 H Platelet Count 50 L Mean Platelet Volume 13.5 H Neutrophils % 91.4 H Segmented Neutrophils % (Manual) 94 H Band Neutrophils % (Manual) 5 H Lymphocytes % 2.6 L Lymphocytes % (Manual) 1 L Monocytes % 4.2 Eosinophils % 0.0 Basophils % 0.2 Nucleated Red Blood Cells % 0.0 Neutrophils # 18.8 H Neutrophils # (Manual) 20.1 H Band Neutrophils # 1.0 H Absolute Lymphocytes (Manual) 0.2 L Lymphocytes # 0.5 L Monocytes # 0.9 Eosinophils # 0.0 Basophils # 0.0 Nucleated Red Blood Cells # 0.0 Platelet Estimate DECREASED Giant Platelets 2 H Hypochromasia 1+ Poikilocytosis 1+ Anisocytosis 1+ Macrocytosis 1+ Prothrombin Time 16.1 H Prothrombin Time Ratio 1.3 INR International Normalized Ratio 1.28 Activated Partial Thromboplast Time 35.4 H Thrombin Time 19.4 H Fibrinogen 291.0 Plasma Fibrin Degradation Products >40 and <80 H D-Dimer 8955.45 H D-Dimer Comment Sodium Level 137 Potassium Level 4.1 Chloride Level 102 Carbon Dioxide Level 29 Anion Gap 10 Blood Urea Nitrogen 65 H Creatinine 5.29 H Glucose Level 124 Calcium Level 7.6 L Magnesium Level 2.1 Medications Medications Current Medications Folic Acid (Folic Acid) 1 mg DAILY PO Last administered on 05/09/17 08:11; Admin Dose 1 MG; Start 04/30/17 at 09:00 Ondansetron HCl (Zofran Inj) 4 mg Q6H PRN IV NAUSEA AND/OR VOMITING Last administered on 05/03/17 23:24; Admin Dose 4 MG; Start 04/29/17 at 20:00 Nitroglycerin (Nitroglycerin (Sl Tab) 0.4 Mg) 1 tab Q5M PRN SL CHEST PAIN; Start 04/29/17 at 20:00 Acetaminophen (Tylenol Liquid) 650 mg Q6H PRN PO PAIN LEVEL 1-3 OR FEVER; Start 04/29/17 at 20:00 Acetaminophen (Tylenol Tab) 650 mg Q6H PRN PO PAIN LEVEL 1-3 OR FEVER; Start at 20:00 Acetaminophen/ Hydrocodone Bitart ([place] (5/325)) 1 tab Q6H PRN PO PAIN LEVEL 4 -6; Start 04/29/17 at 20:00 Zolpidem Tartrate (Ambien) 5 mg QHS PRN PO INSOMNIA; Start 04/29/17 at 20:00 Docusate Sodium (Colace) 100 mg Q12H PRN PO CONSTIPATION; Start 04/29/17 at 20: 00 Bisacodyl (Dulcolax) 5 mg DAILY PRN PO CONSTIPATION; Start 04/29/17 at 20:00 Aspirin 325 mg 325 mg DAILY PO Last administered on 05/09/17 08:11; Admin Dose 325 MG; Start 04/30/17 at 09:00 Vasopressin 60 unit/Dextrose 60 ml @ 1.2 mls/hr Q12H IV Last administered on 01:07; Admin Dose 2.4 MLS/HR; Start 04/30/17 at 13:00 Phenylephrine HCl 80 mg/Dextrose 250 ml @ 18.75 mls/ hr TITRATE IV Last administered on 05/04/17 09:57; Admin Dose 31.87 MLS/HR; Start 04/30/17 at 18: 00 Norepinephrine/ Dextrose (Levophed/D5W) 250 ml @ 0.46 mls/hr TITRATE IV Last administered on 05/06/17 05:15; Admin Dose 0.46 MLS/HR; Start 04/30/17 at 18:00 Pantoprazole (Protonix Iv) 40 mg BID@06,18 IV Last administered on 05/09/17 06 :23; Admin Dose 40 MG; Start 05/02/17 at 18:00 Diphenhydramine HCl 25 mg 25 mg Q4H PRN IV ITCHING Last administered on 16:41; Admin Dose 25 MG; Start 05/02/17 at 08:30 Cefepime HCl 50 ml @ 100 mls/hr Q24H IVPB Last administered on 05/08/17 11:12 ; Admin Dose 100 MLS/HR; Start 05/02/17 at 11:00 Dobutamine HCl/ Dextrose 250 ml @ 4.755 mls/ hr TITRATE IV Last administered on 05/07/17 05:21; Admin Dose 3.804 MLS/HR; Start 05/03/17 at 09:30 Miscellaneous Information 1 ea NOTE XX ; Start 05/03/17 at 13:00 Glucose (Glutose) 15 gm Q15M PRN PO DECREASED GLUCOSE; Start 05/03/17 at 12:45 Glucose (Glutose) 22.5 gm Q15M PRN PO DECREASED GLUCOSE; Start 05/03/17 at 12: 45 Dextrose (D50w Syringe) 25 ml Q15M PRN IV DECREASED GLUCOSE Last administered on 05/03/17 12:48; Admin Dose 25 ML; Start 05/03/17 at 12:45 Dextrose (D50w Syringe) 50 ml Q15M PRN IV DECREASED GLUCOSE; Start 05/03/17 at 12:46 Glucagon (Glucagen) 1 mg Q15M PRN IM DECREASED GLUCOSE; Start 05/03/17 at 12:46 Glucose 15 gm 15 gm Q15M PRN BUCCAL DECREASED GLUCOSE; Start 05/03/17 at 12:46 Midazolam HCl 50 ml @ 1 mls/hr TITRATE IV Last administered on 05/09/17 02:14 ; Admin Dose 3 MLS/HR; Start 05/03/17 at 15:00 Dextrose/Sodium Chloride (D5-NS) 1,000 ml @ 20 mls/hr Q24H IV Last administered on 05/08/17 16:39; Admin Dose 20 MLS/HR; Start 05/03/17 at 16:00 Metoclopramide HCl (Reglan) 5 mg Q6 IV Last administered on 05/09/17 06:23; Admin Dose 5 MG; Start 05/04/17 at 12:00 Nystatin (Nystatin Susp) 5 ml QID PO Last administered on 05/09/17 08:11; Admin Dose 5 ML; Start 05/04/17 at 13:00 Methylprednisolone Sodium Succinate 40 mg 40 mg DAILY IV Last administered on 08:11; Admin Dose 40 MG; Start 05/05/17 at 09:00 Fentanyl (Sublimaze) 100 ml @ 5 mls/hr TITRATE IV Last administered on 17:20; Admin Dose 5 MLS/HR; Start 05/06/17 at 08:30 Amiodarone HCl (Cordarone) 400 mg BID NGT Last administered on 05/09/17 08:11 ; Admin Dose 400 MG; Start 05/06/17 at 18:00 Eye Lubricant (Akwa Oint) 1 applic Q4 PRN BOTH EYES dryness Last administered on 05/08/17 08:59; Admin Dose 1 APPLIC; Start 05/07/17 at 13:00 [facility]isc[facility] This patient otto... PRN PRN XX WOUND CARE; Start 05/07/17 at 13:30 MARCO KENNEDY May 09, 2017 10:58
[2017-05-09] MEDS ORDERED: DIGOXIN 500 MCG INJ IV ONE (11:00)
[2017-05-09 11:21] LABS: AADO2 Arterial 84.5 mmHg (7.0-24.0); Allen Test ACCEPTAB; Arterial COHb 0.3 % (0.0-3.0); Arterial Fraction of Oxyhgb 96.1 % (93.0-99.0); Arterial HCO3 27.6 mmol/L (22.0-26.0); Arterial MetHb 0.1 % (0.0-1.5); Arterial Total Hemglobin 11.7 g/dl (12.0-18.0); Blood Gas PS 10; MODE VENT - CPAP
[2017-05-09] MEDS: CEFEPIME 1GM/50 ML (PMX) 50 ML IVPB SCH (11:40)
--- NOTE | 2017-05-09 13:06 | PN ---
DATE: 05/09/2017 SUBJECTIVE DATA: No acute changes overnight. The patient is lying comfortably in bed. Afebrile off pressors. OBJECTIVE DATA: VITAL SIGNS: Temperature 98.1, pulse 78, respirations 19, blood pressure 118/56, and saturation 100 on vent support. LABORATORY AND DIAGNOSTIC DATA: WBC 21.2, H and H 9.5 and 28.3, platelets 48, BUN 65, creatinine 5.29. INDWELLINGS: Endotracheal tube, NG tube, Campos, left upper extremity AV fistula, and right femoral triple lumen catheter. ANTIMICROBIAL: The patient is on cefepime. PHYSICAL EXAMINATION: GENERAL: This is a well-developed, fragile, elderly man, who is in no distress. HEENT: Head atraumatic, normocephalic. Sclerae anicteric. Buccal mucosa dry. NECK: Supple. CHEST: Chest rise symmetrical. Breath sounds diminished at the bases. HEART: S1, S2. ABDOMEN: Soft, bowel sounds present. EXTREMITIES: Without cyanosis. ASSESSMENT: 1. Status post shock, multifactorial. 2. Status post streptococcal bacteremia. 3. Acute respiratory failure, possibly aspiration pneumonia. 4. Acute myocardial infarction ([place]). 5. End-stage renal disease, hemodialysis dependent. 6. History of coronary artery bypass grafting (CABG). 7. Anemia and thrombocytopenia. PLAN: 1. The patient is stable off pressors. 2. He is being followed by multiple consultants. 3. We will discontinue cefepime in a.m. and observe him. 4. Continue vent management as per Pulmonary. Dictated By: Chelly Hudson NP /valarie/marifer /Document#: [id number]
[2017-05-09] MEDS: DEXTROSE 5%-0.9% NACL 1,000 ML IV SCH (16:00)
--- NOTE | 2017-05-09 21:38 | RADRPT ---
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 Physician: MARCO MONTGOMERY Quality: Adequate Procedures: Transthoracic echocardiogram examination. Indications: Evaluate LV function. 2D/M Mode Doppler Measurement Value Normal Range Measurement Value Normal Range LVIDd 2D 4.7 3.5 - 5.6 cm LVIDs 2D 3.8 2.1 - 4.1 cm LVPWd 2D 1.2 0.6 - 1.1 cm IVSd 2D 1.3 0.6 - 1.1 cm AoR Diam 2D 2.5 2.0 - 3.7 cm LA/Ao 2D 2 0 - 1 LA Dimen 2D 3.8 2.3 - 4.0 cm Findings Left Ventricle: Normal left ventricular cavity size. Moderate left ventricular systolic dysfunction. Mild concentric left ventricular hypertrophy. The left ventricular ejection fraction is visually estimated at 35 %. These segments of the LV are hypokinetic: inferior base segment, inferior mid segment, inferior apex segment, mid septum segment and septum base segment. Right Ventricle: Normal right ventricular size. Normal right ventricular systolic function. Left Atrium: The left atrium is normal in size and appearance. Right Atrium: The right atrium is normal in size and appearance. Mitral Valve: Mild mitral annular calcification. Aortic Valve: Aortic cusps appear mildly calcified. IVC: Normal inferior vena cava appearance and respiratory collapse. Conclusions 1.Normal left ventricular cavity size. Moderate left ventricular systolic dysfunction. Left ventricular wall thickness upper limits of normal. The left ventricular ejection fraction is visually estimated at 35 %. These segments of the LV are hypokinetic: inferior base segment, inferior mid segment, inferior apex segment and mid septum segment. ON very limited images. Electronically Signed By: Marco Montgomery 09-May-2017 21:37:37 -0700 Patient Name: ELIJAH BALLARD Study Date: 09-May-2017 [id number]
[2017-05-10] VITALS (40 sets, daily range): BP systolic 102–167; BP diastolic 41–111; PULSE 63–80; RESP 12–28
[2017-05-10] MEDS: VASOPRESSIN 60 UNIT in DEXTROSE 5% 57 ML IV SCH ×2 (01:00→13:00)
[2017-05-10] MEDS: DEXTROSE 5%-0.9% NACL 1,000 ML IV SCH ×2 (04:20→16:00)
[2017-05-10 05:16] LABS: ABNORMAL IP MESSAGE 1; BASOPHILS % 0.1 % (0.0-2.0); HEMATOCRIT 29.9 % (42.0-52.0); HEMOGLOBIN 9.9 g/dl (14.0-18.0); LYMPHOCYTES # 0.4 10^3/ul (0.8-2.9); LYMPHOCYTES % 1.4 % (15.0-51.0); MEAN CORPUSCULAR HEMOGLOBIN 32.6 pg (29.0-33.0); MEAN CORPUSCULAR HGB CONC 33.1 g/dl (32.0-37.0); MEAN CORPUSCULAR VOLUME 98.4 fl (82.0-101.0); MEAN PLATELET VOLUME 13.7 fl (7.4-10.4); MONOCYTE # 1.2 10^3/ul (0.3-0.9); NEUTROPHIL # 22.5 10^3/ul (1.6-7.5); NEUTROPHILS % 91.7 % (39.0-77.0); PLATELET COUNT 46 10^3/UL (140-415); POSITIVE DIFF @See below; RED BLOOD COUNT 3.04 10^6/ul (4.70-6.10); RED CELL DISTRIBUTION WIDTH 16.1 % (11.5-14.5); WHITE BLOOD COUNT 24.6 10^3/ul (4.8-10.8)
[2017-05-10 05:38] LABS: ALBUMIN 2.6 g/dl (3.3-4.9); ALBUMIN/GLOBULIN RATIO 0.89; BILIRUBIN,DIRECT 0.2 mg/dl (0.00-0.20); BILIRUBIN,INDIRECT 0.4 mg/dl (0-1.1); BILIRUBIN,TOTAL 0.6 mg/dl (0.2-1.3); CALCIUM 7.5 mg/dl (8.4-10.2); CREATININE 4.95 mg/dl (0.61-1.24); POTASSIUM 4.4 mmol/L (3.5-5.1); TOTAL PROTEIN 5.5 g/dl (6.1-8.1)
[2017-05-10] MEDS: METOCLOPRAMIDE 10 MG INJ IV SCH ×3 (06:11→17:41)
[2017-05-10] MEDS: PANTOPRAZOLE 40 MG INJ IV SCH ×2 (06:11→17:40)
--- NOTE | 2017-05-10 08:50 | PN ---
Date/Time of Note Date/Time of Note DATE: 05/10/17 TIME: 08:41 Assessment/Plan VTE Prophylaxis VTE Prophylaxis Intervention: contraindicated Lines/Catheters IV Catheter Type (from Nrsg): Central Line Central line still needed: Yes Urinary Cath still in place: No Assessment/Plan Chief Complaint/Hosp Course 87 y/o with # s/p V Tachy/V Fib likely secondary to ischemia on Amiodarone and s/p Digoxin, now sinus # Shock likely Cardiogenic with AMI with Tropinins 150 on 3 pressors> downtrending Troponin to 40>15>7>5 likely combination of sepsis with Strep bactermia however repeat bld cx negative. Sputum cx+nelly. Currently off pressors. 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, now more edematous s/p daily HD # Acute on chronic heart failure with EF 30% # Shock liver improving LFTs with improving ischemia # Lactic acidosis improved # Respiratory failure on Vent # Thrombocytopenia s/p 1 unit platelets likley due to shock liver now improved # Anemia S/P 2 units PRBC # Right arm DVT but could not be on anticoagulation due to thrombocytopenia Recs - Currently stable off pressors - Repeat ECHO - c/w ASA 325 mg/ Coreg/ Lisnopril, titration per cards - HD today - c/w Amiodarone 400 bid - c/w cefepime and repeat Bld cx negative so far, c/w Nystatin - Taper hydrocortisone -- Frequent suctioning and head of bed elevation - 1 unit of Platelet today - Will talk to Dr Montgomery for possible LHC today ot tmw - NPO Problems: Subjective 24 Hr Interval Summary Free Text/Dictation Pt got extubated yesterday Lot of secretions Some bleeding noted in mouth, suctioned Pt complained of cp last night, Exam/Review of Systems Vital Signs Vitals Vital Signs Date Time Temp Pulse Resp B/P Pulse Ox O2 Delivery O2 Flow Rate FiO2 05/10/17 06:05 67 18 96 Nasal Cannula 3.0 05/10/17 06:00 160/78 05/10/17 04:00 97.7 05/09/17 13:30 30 Intake and Output 05/09/17 05/09/17 05/10/17 15:00 23:00 07:00 Intake Total 751 ml 340 ml 135 ml Output Total 2300 ml 0 ml 0 ml Balance -1549 ml 340 ml 135 ml Exam Exam General:Intubated, opens eyes and follows commands NECK: JVD elevated, no thyromegaly Lymph: no lymphadenopathy HEART: regular with no S3, BRANDI LUNGS: decreased breath sounds b/l ABD: soft, NT, ND, +BS Neuro: non focal SKIN: chronic changes EXT: Edema arms 2+ more on rta arm>left Results Result Diagram: 05/10/17 0420 05/10/17 0420 Results 24 hrs Laboratory Tests Test 05/09/17 11:00 05/10/17 04:20 Blood Gas Specimen Source Blood arterial Arterial Blood Date Drawn 05/09/2017 11:05:01 AM Arterial Blood pH (Temp corrected) 7.484 H Arterial Blood pCO2 (Temp correct) 37.5 Arterial Blood pO2 (Temp corrected) 85.3 Arterial Blood HCO3 27.6 H Arterial Blood Base Excess 4.0 H Arterial Blood Oxygen Saturation 96.5 Hunter Test ACCEPTAB Arterial Blood Gas Puncture Site Right Radial Arterial Blood Carboxyhemoglobin 0.3 Arterial Blood Methemoglobin 0.1 Blood Gas A-a O2 Differential 84.5 H Oxyhemoglobin Percent 96.1 Total Hemoglobin 11.7 L Blood Gas Temperature 37.0 Blood Gas Actual Respiration Rate 17 Blood Gas Modality VENT - CPAP FiO2 30.0 Blood Gas Low PEEP Setting 5.0 Blood Gas Pressure Support 10 Blood Gas Notified Whom JLD Blood Gas Notified Time 05/09/2017 11:21:39 AM White Blood Count 24.6 H Red Blood Count 3.04 L Hemoglobin 9.9 L Hematocrit 29.9 L Mean Corpuscular Volume 98.4 Mean Corpuscular Hemoglobin 32.6 Mean Corpuscular Hemoglobin Concent 33.1 Red Cell Distribution Width 16.1 H Platelet Count 46 L Mean Platelet Volume 13.7 H Neutrophils % 91.7 H Lymphocytes % 1.4 L Monocytes % 5.0 Eosinophils % 0.0 Basophils % 0.1 Nucleated Red Blood Cells % 0.0 Neutrophils # 22.5 H Lymphocytes # 0.4 L Monocytes # 1.2 H Eosinophils # 0.0 Basophils # 0.0 Nucleated Red Blood Cells # 0.0 Sodium Level 139 Potassium Level 4.4 Chloride Level 102 Carbon Dioxide Level 29 Anion Gap 12 Blood Urea Nitrogen 67 H Creatinine 4.95 H Glucose Level 91 Calcium Level 7.5 L Phosphorus Level 4.7 Magnesium Level 2.2 Total Bilirubin 0.6 Direct Bilirubin 0.20 Indirect Bilirubin 0.4 Aspartate Amino Transf (AST/SGOT) 43 Alanine Aminotransferase (ALT/SGPT) 196 H Alkaline Phosphatase 153 H Troponin I 5.890 *H Total Protein 5.5 L Albumin 2.6 L Globulin 2.90 Albumin/Globulin Ratio 0.89 Medications Medications Current Medications Folic Acid (Folic Acid) 1 mg DAILY PO Last administered on 05/09/17 08:11; Admin Dose 1 MG; Start 04/30/17 at 09:00 Ondansetron HCl (Zofran Inj) 4 mg Q6H PRN IV NAUSEA AND/OR VOMITING Last administered on 05/03/17 23:24; Admin Dose 4 MG; Start 04/29/17 at 20:00 Nitroglycerin (Nitroglycerin (Sl Tab) 0.4 Mg) 1 tab Q5M PRN SL CHEST PAIN; Start 04/29/17 at 20:00 Acetaminophen (Tylenol Liquid) 650 mg Q6H PRN PO PAIN LEVEL 1-3 OR FEVER; Start 04/29/17 at 20:00 Acetaminophen (Tylenol Tab) 650 mg Q6H PRN PO PAIN LEVEL 1-3 OR FEVER; Start at 20:00 Acetaminophen/ Hydrocodone Bitart ([place] (5/325)) 1 tab Q6H PRN PO PAIN LEVEL 4 -6; Start 04/29/17 at 20:00 Zolpidem Tartrate (Ambien) 5 mg QHS PRN PO INSOMNIA; Start 04/29/17 at 20:00 Docusate Sodium (Colace) 100 mg Q12H PRN PO CONSTIPATION; Start 04/29/17 at 20: 00 Bisacodyl (Dulcolax) 5 mg DAILY PRN PO CONSTIPATION; Start 04/29/17 at 20:00 Aspirin 325 mg 325 mg DAILY PO Last administered on 05/09/17 08:11; Admin Dose 325 MG; Start 04/30/17 at 09:00 Vasopressin 60 unit/Dextrose 60 ml @ 1.2 mls/hr Q12H IV Last administered on 01:07; Admin Dose 2.4 MLS/HR; Start 04/30/17 at 13:00 Phenylephrine HCl 80 mg/Dextrose 250 ml @ 18.75 mls/ hr TITRATE IV Last administered on 05/04/17 09:57; Admin Dose 31.87 MLS/HR; Start 04/30/17 at 18: 00 Norepinephrine/ Dextrose (Levophed/D5W) 250 ml @ 0.46 mls/hr TITRATE IV Last administered on 05/06/17 05:15; Admin Dose 0.46 MLS/HR; Start 04/30/17 at 18:00 Pantoprazole (Protonix Iv) 40 mg BID@06,18 IV Last administered on 05/10/17 06 :11; Admin Dose 40 MG; Start 05/02/17 at 18:00 Diphenhydramine HCl 25 mg 25 mg Q4H PRN IV ITCHING Last administered on 16:41; Admin Dose 25 MG; Start 05/02/17 at 08:30 Cefepime HCl 50 ml @ 100 mls/hr Q24H IVPB Last administered on 05/09/17 11:40 ; Admin Dose 100 MLS/HR; Start 05/02/17 at 11:00 Dobutamine HCl/ Dextrose 250 ml @ 4.755 mls/ hr TITRATE IV Last administered on 05/07/17 05:21; Admin Dose 3.804 MLS/HR; Start 05/03/17 at 09:30 Miscellaneous Information 1 ea NOTE XX ; Start 05/03/17 at 13:00 Glucose (Glutose) 15 gm Q15M PRN PO DECREASED GLUCOSE; Start 05/03/17 at 12:45 Glucose (Glutose) 22.5 gm Q15M PRN PO DECREASED GLUCOSE; Start 05/03/17 at 12: 45 Dextrose (D50w Syringe) 25 ml Q15M PRN IV DECREASED GLUCOSE Last administered on 05/03/17 12:48; Admin Dose 25 ML; Start 05/03/17 at 12:45 Dextrose (D50w Syringe) 50 ml Q15M PRN IV DECREASED GLUCOSE; Start 05/03/17 at 12:46 Glucagon (Glucagen) 1 mg Q15M PRN IM DECREASED GLUCOSE; Start 05/03/17 at 12:46 Glucose 15 gm 15 gm Q15M PRN BUCCAL DECREASED GLUCOSE; Start 05/03/17 at 12:46 Midazolam HCl 50 ml @ 1 mls/hr TITRATE IV Last administered on 05/09/17 02:14 ; Admin Dose 3 MLS/HR; Start 05/03/17 at 15:00 Dextrose/Sodium Chloride (D5-NS) 1,000 ml @ 20 mls/hr Q24H IV Last administered on 05/10/17 04:20; Admin Dose 20 MLS/HR; Start 05/03/17 at 16:00 Metoclopramide HCl (Reglan) 5 mg Q6 IV Last administered on 05/10/17 06:11; Admin Dose 5 MG; Start 05/04/17 at 12:00 Nystatin 5 ml 5 ml QID PO Last administered on 05/09/17 20:51; Admin Dose 5 ML ; Start 05/04/17 at 13:00 Fentanyl (Sublimaze) 100 ml @ 5 mls/hr TITRATE IV Last administered on 17:20; Admin Dose 5 MLS/HR; Start 05/06/17 at 08:30 Amiodarone HCl (Cordarone) 400 mg BID NGT Last administered on 05/09/17 20:50 ; Admin Dose 400 MG; Start 05/06/17 at 18:00 Eye Lubricant (Akwa Oint) 1 applic Q4 PRN BOTH EYES dryness Last administered on 05/08/17 08:59; Admin Dose 1 APPLIC; Start 05/07/17 at 13:00 Miscellaneous Information (Pending [facility] Order For Wound Care) This patient otto... PRN PRN XX WOUND CARE; Start 05/07/17 at 13:30 Carvedilol (Coreg) 3.125 mg BID PO Last administered on 05/09/17 20:51; Admin Dose 3.125 MG; Start 05/09/17 at 21:00 Lisinopril (Zestril) 2.5 mg DAILY PO ; Start 05/10/17 at 09:00 Methylprednisolone Sodium Succinate (Solu-Medrol) 20 mg DAILY IV ; Start at 09:00; Status ARNULFO SINGH MD May 10, 2017 08:50
[2017-05-10] MEDS: LISINOPRIL 5 MG TAB PO SCH (09:00)
[2017-05-10] MEDS ORDERED: ACETAMINOPHEN 325 MG TAB PO SCH (09:00)
[2017-05-10] MEDS ORDERED: METHYLPREDNISOLONE 40 MG INJ IV SCH (09:00)
[2017-05-10] MEDS: AMIODARONE 200 MG TAB NGT SCH ×2 (09:45→20:08)
[2017-05-10] MEDS: NYSTATIN SUSP 5 ML CUP PO SCH ×4 (09:45→20:08)
[2017-05-10] MEDS: FOLIC ACID 1 MG TAB PO SCH (09:45)
--- NOTE | 2017-05-10 09:49 | CONS ---
Date/Time of Note Date/Time of Note DATE: 05/10/17 TIME: 09:47 Assessment/Plan Assessment/Plan Additional Assessment/Plan 1.Acute DE-now downtrending cardiac enzymes without signs of ongoing myocardial necrosis - if stable, plan for LHC - not stable for stress test now with respiratory secretions. 2.Shock-improved off of all inotropes and pressors - of fall pressors now. 3.VT-now in SR on amio PO - now in sinus 4.resp failure s/p intubation - extub now 5.renal failure-on HD - today 6. Leukocytosis 7. Thrombocytopenia-slowly improving 8. Shock liver-improving 9. CHF-systolic acute on chronic likely with EF 20% by echo this admit Consultation Date/Type/Reason Admit Date/Time Apr 29, 2017 at 19:31 Type of Consultation: cardiology Referring Provider: YENNY WINSTON MD 24 HR Interval Summary Free Text/Dictation plan for LHC - not stable for stress test now with respiratory secretions. ROS: No fever, no chills, no nausea, no vomiting, no diarrhea/constipation No recent weight changes No chest pain, no PND, no orthopnea + secretion, + sob No dizziness, blurred vision No thirst, no heat or cold intolerance Exam/Review of Systems Vital Signs Vitals Vital Signs Date Time Temp Pulse Resp B/P Pulse Ox O2 Delivery O2 Flow Rate FiO2 05/10/17 08:00 71 05/10/17 06:05 18 96 Nasal Cannula 3.0 05/10/17 06:00 160/78 05/10/17 04:00 97.7 05/09/17 13:30 30 Intake and Output 05/09/17 05/09/17 05/10/17 15:00 23:00 07:00 Intake Total 751 ml 340 ml 135 ml Output Total 2300 ml 0 ml 0 ml Balance -1549 ml 340 ml 135 ml Exam General: WN/WD/NAD, AOx 2-3 HEENT: Unicetric/atraumatic/EOMI (follow commands) NECK: JVD elevated, no thyromegaly Lymph: no lymphadenopathy HEART: regular with no S3, II/ systolic murmur at apex LUNGS: Coarse sounds ABD: soft, NT, ND, +BS : Intact Neuro: non focal SKIN: chronic changes EXT: trace edema Results Result Diagram: 05/10/17 0420 05/10/17 0420 Results 24 hrs Laboratory Tests Test 05/09/17 11:00 05/10/17 04:20 Blood Gas Specimen Source Blood arterial Arterial Blood Date Drawn 05/09/2017 11:05:01 AM Arterial Blood pH (Temp corrected) 7.484 H Arterial Blood pCO2 (Temp correct) 37.5 Arterial Blood pO2 (Temp corrected) 85.3 Arterial Blood HCO3 27.6 H Arterial Blood Base Excess 4.0 H Arterial Blood Oxygen Saturation 96.5 Hunter Test ACCEPTAB Arterial Blood Gas Puncture Site Right Radial Arterial Blood Carboxyhemoglobin 0.3 Arterial Blood Methemoglobin 0.1 Blood Gas A-a O2 Differential 84.5 H Oxyhemoglobin Percent 96.1 Total Hemoglobin 11.7 L Blood Gas Temperature 37.0 Blood Gas Actual Respiration Rate 17 Blood Gas Modality VENT - CPAP FiO2 30.0 Blood Gas Low PEEP Setting 5.0 Blood Gas Pressure Support 10 Blood Gas Notified Whom JLD Blood Gas Notified Time 05/09/2017 11:21:39 AM White Blood Count 24.6 H Red Blood Count 3.04 L Hemoglobin 9.9 L Hematocrit 29.9 L Mean Corpuscular Volume 98.4 Mean Corpuscular Hemoglobin 32.6 Mean Corpuscular Hemoglobin Concent 33.1 Red Cell Distribution Width 16.1 H Platelet Count 46 L Mean Platelet Volume 13.7 H Neutrophils % 91.7 H Lymphocytes % 1.4 L Monocytes % 5.0 Eosinophils % 0.0 Basophils % 0.1 Nucleated Red Blood Cells % 0.0 Neutrophils # 22.5 H Lymphocytes # 0.4 L Monocytes # 1.2 H Eosinophils # 0.0 Basophils # 0.0 Nucleated Red Blood Cells # 0.0 Sodium Level 139 Potassium Level 4.4 Chloride Level 102 Carbon Dioxide Level 29 Anion Gap 12 Blood Urea Nitrogen 67 H Creatinine 4.95 H Glucose Level 91 Calcium Level 7.5 L Phosphorus Level 4.7 Magnesium Level 2.2 Total Bilirubin 0.6 Direct Bilirubin 0.20 Indirect Bilirubin 0.4 Aspartate Amino Transf (AST/SGOT) 43 Alanine Aminotransferase (ALT/SGPT) 196 H Alkaline Phosphatase 153 H Troponin I 5.890 *H Total Protein 5.5 L Albumin 2.6 L Globulin 2.90 Albumin/Globulin Ratio 0.89 Medications Medications Current Medications Folic Acid (Folic Acid) 1 mg DAILY PO Last administered on 05/10/17 09:45; Admin Dose 1 MG; Start 04/30/17 at 09:00 Ondansetron HCl (Zofran Inj) 4 mg Q6H PRN IV NAUSEA AND/OR VOMITING Last administered on 05/03/17 23:24; Admin Dose 4 MG; Start 04/29/17 at 20:00 Nitroglycerin (Nitroglycerin (Sl Tab) 0.4 Mg) 1 tab Q5M PRN SL CHEST PAIN; Start 04/29/17 at 20:00 Acetaminophen (Tylenol Liquid) 650 mg Q6H PRN PO PAIN LEVEL 1-3 OR FEVER; Start 04/29/17 at 20:00 Acetaminophen (Tylenol Tab) 650 mg Q6H PRN PO PAIN LEVEL 1-3 OR FEVER; Start at 20:00 Acetaminophen/ Hydrocodone Bitart ([place] (5/325)) 1 tab Q6H PRN PO PAIN LEVEL 4 -6; Start 04/29/17 at 20:00 Zolpidem Tartrate (Ambien) 5 mg QHS PRN PO INSOMNIA; Start 04/29/17 at 20:00 Docusate Sodium (Colace) 100 mg Q12H PRN PO CONSTIPATION; Start 04/29/17 at 20: 00 Bisacodyl (Dulcolax) 5 mg DAILY PRN PO CONSTIPATION; Start 04/29/17 at 20:00 Aspirin 325 mg 325 mg DAILY PO Last administered on 05/09/17 08:11; Admin Dose 325 MG; Start 04/30/17 at 09:00 Vasopressin 60 unit/Dextrose 60 ml @ 1.2 mls/hr Q12H IV Last administered on 01:07; Admin Dose 2.4 MLS/HR; Start 04/30/17 at 13:00 Phenylephrine HCl 80 mg/Dextrose 250 ml @ 18.75 mls/ hr TITRATE IV Last administered on 05/04/17 09:57; Admin Dose 31.87 MLS/HR; Start 04/30/17 at 18: 00 Norepinephrine/ Dextrose (Levophed/D5W) 250 ml @ 0.46 mls/hr TITRATE IV Last administered on 05/06/17 05:15; Admin Dose 0.46 MLS/HR; Start 04/30/17 at 18:00 Pantoprazole (Protonix Iv) 40 mg BID@06,18 IV Last administered on 05/10/17 06 :11; Admin Dose 40 MG; Start 05/02/17 at 18:00 Diphenhydramine HCl 25 mg 25 mg Q4H PRN IV ITCHING Last administered on 16:41; Admin Dose 25 MG; Start 05/02/17 at 08:30 Cefepime HCl 50 ml @ 100 mls/hr Q24H IVPB Last administered on 05/09/17 11:40 ; Admin Dose 100 MLS/HR; Start 05/02/17 at 11:00 Dobutamine HCl/ Dextrose 250 ml @ 4.755 mls/ hr TITRATE IV Last administered on 05/07/17 05:21; Admin Dose 3.804 MLS/HR; Start 05/03/17 at 09:30 Miscellaneous Information 1 ea NOTE XX ; Start 05/03/17 at 13:00 Glucose (Glutose) 15 gm Q15M PRN PO DECREASED GLUCOSE; Start 05/03/17 at 12:45 Glucose (Glutose) 22.5 gm Q15M PRN PO DECREASED GLUCOSE; Start 05/03/17 at 12: 45 Dextrose (D50w Syringe) 25 ml Q15M PRN IV DECREASED GLUCOSE Last administered on 05/03/17 12:48; Admin Dose 25 ML; Start 05/03/17 at 12:45 Dextrose (D50w Syringe) 50 ml Q15M PRN IV DECREASED GLUCOSE; Start 05/03/17 at 12:46 Glucagon (Glucagen) 1 mg Q15M PRN IM DECREASED GLUCOSE; Start 05/03/17 at 12:46 Glucose 15 gm 15 gm Q15M PRN BUCCAL DECREASED GLUCOSE; Start 05/03/17 at 12:46 Midazolam HCl 50 ml @ 1 mls/hr TITRATE IV Last administered on 05/09/17 02:14 ; Admin Dose 3 MLS/HR; Start 05/03/17 at 15:00 Dextrose/Sodium Chloride (D5-NS) 1,000 ml @ 20 mls/hr Q24H IV Last administered on 05/10/17 04:20; Admin Dose 20 MLS/HR; Start 05/03/17 at 16:00 Metoclopramide HCl (Reglan) 5 mg Q6 IV Last administered on 05/10/17 06:11; Admin Dose 5 MG; Start 05/04/17 at 12:00 Nystatin 5 ml 5 ml QID PO Last administered on 05/10/17 09:45; Admin Dose 5 ML ; Start 05/04/17 at 13:00 Fentanyl (Sublimaze) 100 ml @ 5 mls/hr TITRATE IV Last administered on 17:20; Admin Dose 5 MLS/HR; Start 05/06/17 at 08:30 Amiodarone HCl (Cordarone) 400 mg BID NGT Last administered on 05/10/17 09:45 ; Admin Dose 400 MG; Start 05/06/17 at 18:00 Eye Lubricant (Akwa Oint) 1 applic Q4 PRN BOTH EYES dryness Last administered on 05/08/17 08:59; Admin Dose 1 APPLIC; Start 05/07/17 at 13:00 Miscellaneous Information ([facility] This patient otto... PRN PRN XX WOUND CARE; Start 05/07/17 at 13:30 Carvedilol (Coreg) 3.125 mg BID PO Last administered on 05/09/17 20:51; Admin Dose 3.125 MG; Start 05/09/17 at 21:00 Lisinopril (Zestril) 2.5 mg DAILY PO ; Start 05/10/17 at 09:00 Methylprednisolone Sodium Succinate (Solu-Medrol) 20 mg DAILY IV ; Start at 09:00; Stop 05/12/17 at 09:01 Morphine Sulfate (morphine) 1 mg Q4H PRN IV pain; Start 05/10/17 at 09:00 Methylprednisolone Sodium Succinate (Solu-Medrol) 10 mg DAILY IV ; Start at 09:00; Stop 05/14/17 at 09:01 Acetaminophen (Tylenol Tab) 650 mg ONCE PO ; Start 05/10/17 at 09:00; Stop 05/11 at 08:59 CANDACE CARTWRIGHT MD May 10, 2017 09:49
[2017-05-10] MEDS: ASPIRIN 325 MG TAB PO SCH (09:52)
--- NOTE | 2017-05-10 11:06 | CONS ---
Date/Time of Note Date/Time of Note DATE: 05/10/17 TIME: 11:03 Assessment/Plan Assessment/Plan Additional Assessment/Plan Assessment and recommendations; 1. Patient admitted with severe cardiogenic shock with marked overall clinical improvement. Extubated yesterday. 2. Chronic renal failure, on hemodialysis. 3. Superimposed pneumonia. 4. History of prior CABG. 5. Anemia and thrombocytopenia. 6. Status post upper GI bleed. 7. Generalized deconditioning. Continue current supportive care. Discontinue Solu-Medrol. Consultation Date/Type/Reason Admit Date/Time Apr 29, 2017 at 19:31 Initial Consult Date 05/01/17 Type of Consultation: Pulmonary/critical care Referring Provider: YENNY WINSTON MD 24 HR Interval Summary Free Text/Dictation Patient's condition is stable. Was successfully extubated yesterday afternoon. Patient remains awake and alert. General exam; elderly male, awake, currently in no distress. Exam/Review of Systems Vital Signs Vitals Vital Signs Date Time Temp Pulse Resp B/P Pulse Ox O2 Delivery O2 Flow Rate FiO2 05/10/17 08:00 71 05/10/17 06:05 18 96 Nasal Cannula 3.0 05/10/17 06:00 160/78 05/10/17 04:00 97.7 05/09/17 13:30 30 Intake and Output 05/09/17 05/09/17 05/10/17 15:00 23:00 07:00 Intake Total 751 ml 340 ml 135 ml Output Total 2300 ml 0 ml 0 ml Balance -1549 ml 340 ml 135 ml Exam HEENT exam; supple neck, positive JVD. No lymphadenopathy. Midline trachea. No thyromegaly. Pharynx is clear. Patient does have multiple carious teeth. Has bilateral intraocular lens implants. Chest exam; diminished but clear breath sounds. There is a well-healed sternal scar. S1-S2 audible, no murmurs. Regular rhythm. Abdomen exam; soft, nontender. No organomegaly. Bowel sounds audible. Extremity exam; no peripheral edema. Patient does have multiple ecchymosis involving all 4 extremities. COAL UNLOADER exam; patient is awake and alert. And follows simple commands and moves all 4 extremities. Exhibiting generalized weakness. Results Result Diagram: 05/10/17 0420 05/10/17 0420 Results 24 hrs Laboratory Tests Test 05/10/17 04:20 White Blood Count 24.6 H Red Blood Count 3.04 L Hemoglobin 9.9 L Hematocrit 29.9 L Mean Corpuscular Volume 98.4 Mean Corpuscular Hemoglobin 32.6 Mean Corpuscular Hemoglobin Concent 33.1 Red Cell Distribution Width 16.1 H Platelet Count 46 L Mean Platelet Volume 13.7 H Neutrophils % 91.7 H Lymphocytes % 1.4 L Monocytes % 5.0 Eosinophils % 0.0 Basophils % 0.1 Nucleated Red Blood Cells % 0.0 Neutrophils # 22.5 H Lymphocytes # 0.4 L Monocytes # 1.2 H Eosinophils # 0.0 Basophils # 0.0 Nucleated Red Blood Cells # 0.0 Sodium Level 139 Potassium Level 4.4 Chloride Level 102 Carbon Dioxide Level 29 Anion Gap 12 Blood Urea Nitrogen 67 H Creatinine 4.95 H Glucose Level 91 Calcium Level 7.5 L Phosphorus Level 4.7 Magnesium Level 2.2 Total Bilirubin 0.6 Direct Bilirubin 0.20 Indirect Bilirubin 0.4 Aspartate Amino Transf (AST/SGOT) 43 Alanine Aminotransferase (ALT/SGPT) 196 H Alkaline Phosphatase 153 H Troponin I 5.890 *H Total Protein 5.5 L Albumin 2.6 L Globulin 2.90 Albumin/Globulin Ratio 0.89 Medications Medications Current Medications Folic Acid (Folic Acid) 1 mg DAILY PO Last administered on 05/10/17 09:45; Admin Dose 1 MG; Start 04/30/17 at 09:00 Ondansetron HCl (Zofran Inj) 4 mg Q6H PRN IV NAUSEA AND/OR VOMITING Last administered on 05/03/17 23:24; Admin Dose 4 MG; Start 04/29/17 at 20:00 Nitroglycerin (Nitroglycerin (Sl Tab) 0.4 Mg) 1 tab Q5M PRN SL CHEST PAIN; Start 04/29/17 at 20:00 Acetaminophen (Tylenol Liquid) 650 mg Q6H PRN PO PAIN LEVEL 1-3 OR FEVER; Start 04/29/17 at 20:00 Acetaminophen (Tylenol Tab) 650 mg Q6H PRN PO PAIN LEVEL 1-3 OR FEVER; Start at 20:00 Acetaminophen/ Hydrocodone Bitart ([place] (5/325)) 1 tab Q6H PRN PO PAIN LEVEL 4 -6; Start 04/29/17 at 20:00 Zolpidem Tartrate (Ambien) 5 mg QHS PRN PO INSOMNIA; Start 04/29/17 at 20:00 Docusate Sodium (Colace) 100 mg Q12H PRN PO CONSTIPATION; Start 04/29/17 at 20: 00 Bisacodyl (Dulcolax) 5 mg DAILY PRN PO CONSTIPATION; Start 04/29/17 at 20:00 Aspirin 325 mg 325 mg DAILY PO Last administered on 05/10/17 09:52; Admin Dose 325 MG; Start 04/30/17 at 09:00 Vasopressin 60 unit/Dextrose 60 ml @ 1.2 mls/hr Q12H IV Last administered on 01:07; Admin Dose 2.4 MLS/HR; Start 04/30/17 at 13:00 Phenylephrine HCl 80 mg/Dextrose 250 ml @ 18.75 mls/ hr TITRATE IV Last administered on 05/04/17 09:57; Admin Dose 31.87 MLS/HR; Start 04/30/17 at 18: 00 Norepinephrine/ Dextrose (Levophed/D5W) 250 ml @ 0.46 mls/hr TITRATE IV Last administered on 05/06/17 05:15; Admin Dose 0.46 MLS/HR; Start 04/30/17 at 18:00 Pantoprazole (Protonix Iv) 40 mg BID@06,18 IV Last administered on 05/10/17 06 :11; Admin Dose 40 MG; Start 05/02/17 at 18:00 Diphenhydramine HCl 25 mg 25 mg Q4H PRN IV ITCHING Last administered on 16:41; Admin Dose 25 MG; Start 05/02/17 at 08:30 Cefepime HCl 50 ml @ 100 mls/hr Q24H IVPB Last administered on 05/09/17 11:40 ; Admin Dose 100 MLS/HR; Start 05/02/17 at 11:00 Dobutamine HCl/ Dextrose 250 ml @ 4.755 mls/ hr TITRATE IV Last administered on 05/07/17 05:21; Admin Dose 3.804 MLS/HR; Start 05/03/17 at 09:30 Miscellaneous Information 1 ea NOTE XX ; Start 05/03/17 at 13:00 Glucose (Glutose) 15 gm Q15M PRN PO DECREASED GLUCOSE; Start 05/03/17 at 12:45 Glucose (Glutose) 22.5 gm Q15M PRN PO DECREASED GLUCOSE; Start 05/03/17 at 12: 45 Dextrose (D50w Syringe) 25 ml Q15M PRN IV DECREASED GLUCOSE Last administered on 05/03/17 12:48; Admin Dose 25 ML; Start 05/03/17 at 12:45 Dextrose (D50w Syringe) 50 ml Q15M PRN IV DECREASED GLUCOSE; Start 05/03/17 at 12:46 Glucagon (Glucagen) 1 mg Q15M PRN IM DECREASED GLUCOSE; Start 05/03/17 at 12:46 Glucose 15 gm 15 gm Q15M PRN BUCCAL DECREASED GLUCOSE; Start 05/03/17 at 12:46 Midazolam HCl 50 ml @ 1 mls/hr TITRATE IV Last administered on 05/09/17 02:14 ; Admin Dose 3 MLS/HR; Start 05/03/17 at 15:00 Dextrose/Sodium Chloride (D5-NS) 1,000 ml @ 20 mls/hr Q24H IV Last administered on 05/10/17 04:20; Admin Dose 20 MLS/HR; Start 05/03/17 at 16:00 Metoclopramide HCl (Reglan) 5 mg Q6 IV Last administered on 05/10/17 06:11; Admin Dose 5 MG; Start 05/04/17 at 12:00 Nystatin 5 ml 5 ml QID PO Last administered on 05/10/17 09:45; Admin Dose 5 ML ; Start 05/04/17 at 13:00 Fentanyl (Sublimaze) 100 ml @ 5 mls/hr TITRATE IV Last administered on 17:20; Admin Dose 5 MLS/HR; Start 05/06/17 at 08:30 Amiodarone HCl (Cordarone) 400 mg BID NGT Last administered on 05/10/17 09:45 ; Admin Dose 400 MG; Start 05/06/17 at 18:00 Eye Lubricant (Akwa Oint) 1 applic Q4 PRN BOTH EYES dryness Last administered on 05/08/17 08:59; Admin Dose 1 APPLIC; Start 05/07/17 at 13:00 Miscellaneous Information ([facility]ending [facility] For [facility] Care) This patient otto... PRN PRN XX WOUND CARE; Start 05/07/17 at 13:30 Carvedilol (Coreg) 3.125 mg BID PO Last administered on 05/09/17 20:51; Admin Dose 3.125 MG; Start 05/09/17 at 21:00 Lisinopril (Zestril) 2.5 mg DAILY PO ; Start 05/10/17 at 09:00 Methylprednisolone Sodium Succinate (Solu-Medrol) 20 mg DAILY IV Last administered on 05/10/17 09:53; Admin Dose 20 MG; Start 05/10/17 at 09:00; Stop 05/12/17 at 09:01 Morphine Sulfate (morphine) 1 mg Q4H PRN IV pain; Start 05/10/17 at 09:00 Methylprednisolone Sodium Succinate (Solu-Medrol) 10 mg DAILY IV ; Start at 09:00; Stop 05/14/17 at 09:01 Acetaminophen (Tylenol Tab) 650 mg ONCE PO ; Start 05/10/17 at 09:00; Stop 05/11 at 08:59 CHARLES EMMANUEL May 10, 2017 11:06
--- NOTE | 2017-05-10 12:06 | PN ---
DATE: 05/10/2017 SUBJECTIVE DATA: The patient was extubated yesterday. He is lethargic and congested and seems to have difficulty coughing up secretions. Family at bedside. No fevers. OBJECTIVE DATA: VITAL SIGNS: Temperature 97.7, pulse 66, respirations 18, blood pressure 160/78, saturation 100 on 3 L. LABORATORY AND DIAGNOSTIC DATA: WBC 24.6, H and H 9.9 and 29.9, platelets 46, neutrophils 91.7. BUN 67, creatinine 4.95. MICROBIOLOGY: Blood cultures repeated on May 02 negative INDWELLING: The patient has NG tube, left upper extremity AV fistula, right femoral triple lumen catheter. PHYSICAL EXAMINATION: GENERAL: This is a fragile, chronically ill-appearing, elderly man, who is in no distress. HEENT: Head atraumatic, normocephalic. Sclerae anicteric. Buccal mucosa dry. NECK: Supple. CHEST: Rise symmetrical. Breath sounds with bilateral rhonchi and rales. HEART: S1, S2. ABDOMEN: Soft, bowel sounds present. EXTREMITIES: Without cyanosis. ASSESSMENT: 1. Status post shock. 2. Acute myocardial infarction. 3. Acute respiratory failure, status post extubated yesterday. 4. Dysphagia and significant secretion retention. 5. End-stage renal disease, hemodialysis dependent. 6. Status post streptococcal bacteremia. 7. Thrombocytopenia. 8. History of coronary artery bypass grafting. PLAN: The patient is stable post extubation, although with significant secretion retention. Completing antibiotics. Continue anti-aspiration measures and follow recommendations of consultants. Dictated By: Chelly Hudson NP /valarie/annalise /Document#: [id number]
[2017-05-10] MEDS ORDERED: ALBUMIN HUMAN 25% 100 ML IV PRN (14:00)
[2017-05-10] MEDS: CEFEPIME 1GM/50 ML (PMX) 50 ML IVPB SCH (15:34)
--- NOTE | 2017-05-10 16:06 | CONS ---
Date/Time of Note Date/Time of Note DATE: 05/10/17 TIME: 16:02 Assessment/Plan Assessment/Plan Chief Complaint/Hosp Course This is a 87 y/o male with pmh of HTN, HLD, RF on HD, CAD and CABG x 20 yrs ago (1997) Presented to the hospital with VT at a rate of 220 bpm, with a RBBB and inferior axis. The pt required a shock and was sent to the ICU. Per lab notes, Trop was 30 on the day of admission. The pt later in the ICU, required to be intubated. The Echo was done yesterday, the pt has an EF of 30% with mild AI and Mild MR per division order technician. The ECG did not reveal ST elevation. The family wants everything to be done. He is now on 4 pressors, Levophed, vasopressin, Sean and Dobutamine. The pt is now receiving HD and the BP is 86 systolic. He is on 100% FIO2. 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 05/02/2017 The patient is improving with the LFTs decreasing, the Trop trending down, the FIO2 is now at 50% instead of 100%, He is on 3 pressors and will wean off the pressors again. 05/03/2017 The pt is still on 3 pressors He is using less FIO2 at 40 % The pt will need an A line, attempted it, but could not pass the small wire. Will need kit from the logging rafter laborer tomorrow the pt will need to start on Amiodarone drip for HR control and on Digoxin 0.5 mg IV x 1 only the pt will also then need to be slowly weaned off of the pressors. will check ABG in AM. 05/04/2017 the pt is in SR, at 77 bpm.The Amiodarone should be continued for now. No more VT or PVCs either The pt is now on two pressors and on 40 % FiO2 Has a right arm DVT and IJ thrombus Cannot be on Heparin because of thrombocythopenia and requiring platelt transfusion The pt will cont the med tx and hopefuly may be able to able to reduce to one pressor soon. 05/05/2017 The pt is slowly improving Once the pt is off of the drips, he may then be extubated The pt will also need a cath once stable. Will cont the Amiodarone for now and will follow up The nurse will try to titrate off the levophed. 05/06/2017 The pt is seen and examined The nurse is present The pt is improving The pt is only on 3mcg/kg/min of dobutamine and will most likely come off of this and the will be weaned off to extubate him The pt will be on PO amio soon. Then discontinue the IV amio 05/07/2017 The pt is on 2mcg/kg/min of dobutamine only Will stop the dobutamine soon and then will need an angiogram, then will extubate. Will follow up 05/08/2017 The pt is now off of dobutamine The pt is still intubated, on 40 % FiO2. Will need a chest x ray and will need to be weaned off. Will speak with Dr. Montgomery to see if he wants to cath him while intubated or not 05/10/2017 The pt will need an ICD once we have the status of the coronaries May do a Adilia or a cath, at least a diagnostic cath. Problems: Consultation Date/Type/Reason Admit Date/Time Apr 29, 2017 at 19:31 Initial Consult Date 05/02/17 Type of Consultation: Pulmonary/critical care Referring Provider: YENNY WINSTON MD 24 HR Interval Summary Free Text/Dictation The pt is extubated and feeling better Exam/Review of Systems Vital Signs Vitals Vital Signs Date Time Temp Pulse Resp B/P Pulse Ox O2 Delivery O2 Flow Rate FiO2 05/10/17 14:55 73 18 05/10/17 14:30 124/60 100 Nasal Cannula 3.0 05/10/17 12:00 97.3 05/09/17 13:30 30 Intake and Output 05/09/17 05/09/17 05/10/17 15:00 23:00 07:00 Intake Total 751 ml 340 ml 155 ml Output Total 2300 ml 0 ml 0 ml Balance -1549 ml 340 ml 155 ml Results Result Diagram: 05/10/17 0420 05/10/17 0420 Results 24 hrs Laboratory Tests Test 05/10/17 04:20 White Blood Count 24.6 H Red Blood Count 3.04 L Hemoglobin 9.9 L Hematocrit 29.9 L Mean Corpuscular Volume 98.4 Mean Corpuscular Hemoglobin 32.6 Mean Corpuscular Hemoglobin Concent 33.1 Red Cell Distribution Width 16.1 H Platelet Count 46 L Mean Platelet Volume 13.7 H Neutrophils % 91.7 H Lymphocytes % 1.4 L Monocytes % 5.0 Eosinophils % 0.0 Basophils % 0.1 Nucleated Red Blood Cells % 0.0 Neutrophils # 22.5 H Lymphocytes # 0.4 L Monocytes # 1.2 H Eosinophils # 0.0 Basophils # 0.0 Nucleated Red Blood Cells # 0.0 Sodium Level 139 Potassium Level 4.4 Chloride Level 102 Carbon Dioxide Level 29 Anion Gap 12 Blood Urea Nitrogen 67 H Creatinine 4.95 H Glucose Level 91 Calcium Level 7.5 L Phosphorus Level 4.7 Magnesium Level 2.2 Total Bilirubin 0.6 Direct Bilirubin 0.20 Indirect Bilirubin 0.4 Aspartate Amino Transf (AST/SGOT) 43 Alanine Aminotransferase (ALT/SGPT) 196 H Alkaline Phosphatase 153 H Troponin I 5.890 *H Total Protein 5.5 L Albumin 2.6 L Globulin 2.90 Albumin/Globulin Ratio 0.89 Medications Medications Current Medications Folic Acid (Folic Acid) 1 mg DAILY PO Last administered on 05/10/17 09:45; Admin Dose 1 MG; Start 04/30/17 at 09:00 Ondansetron HCl (Zofran Inj) 4 mg Q6H PRN IV NAUSEA AND/OR VOMITING Last administered on 05/03/17 23:24; Admin Dose 4 MG; Start 04/29/17 at 20:00 Nitroglycerin (Nitroglycerin (Sl Tab) 0.4 Mg) 1 tab Q5M PRN SL CHEST PAIN; Start 04/29/17 at 20:00 Acetaminophen (Tylenol Liquid) 650 mg Q6H PRN PO PAIN LEVEL 1-3 OR FEVER; Start 04/29/17 at 20:00 Acetaminophen (Tylenol Tab) 650 mg Q6H PRN PO PAIN LEVEL 1-3 OR FEVER; Start at 20:00 Acetaminophen/ Hydrocodone Bitart ([place] (5/325)) 1 tab Q6H PRN PO PAIN LEVEL 4 -6; Start 04/29/17 at 20:00 Zolpidem Tartrate (Ambien) 5 mg QHS PRN PO INSOMNIA; Start 04/29/17 at 20:00 Docusate Sodium (Colace) 100 mg Q12H PRN PO CONSTIPATION; Start 04/29/17 at 20: 00 Bisacodyl (Dulcolax) 5 mg DAILY PRN PO CONSTIPATION; Start 04/29/17 at 20:00 Aspirin 325 mg 325 mg DAILY PO Last administered on 05/10/17 09:52; Admin Dose 325 MG; Start 04/30/17 at 09:00 Vasopressin 60 unit/Dextrose 60 ml @ 1.2 mls/hr Q12H IV Last administered on 01:07; Admin Dose 2.4 MLS/HR; Start 04/30/17 at 13:00 Phenylephrine HCl 80 mg/Dextrose 250 ml @ 18.75 mls/ hr TITRATE IV Last administered on 05/04/17 09:57; Admin Dose 31.87 MLS/HR; Start 04/30/17 at 18: 00 Norepinephrine/ Dextrose (Levophed/D5W) 250 ml @ 0.46 mls/hr TITRATE IV Last administered on 05/06/17 05:15; Admin Dose 0.46 MLS/HR; Start 04/30/17 at 18:00 Pantoprazole (Protonix Iv) 40 mg BID@06,18 IV Last administered on 05/10/17 06 :11; Admin Dose 40 MG; Start 05/02/17 at 18:00 Diphenhydramine HCl 25 mg 25 mg Q4H PRN IV ITCHING Last administered on 16:41; Admin Dose 25 MG; Start 05/02/17 at 08:30 Cefepime HCl 50 ml @ 100 mls/hr Q24H IVPB Last administered on 05/10/17 15:34 ; Admin Dose 100 MLS/HR; Start 05/02/17 at 11:00 Dobutamine HCl/ Dextrose 250 ml @ 4.755 mls/ hr TITRATE IV Last administered on 05/07/17 05:21; Admin Dose 3.804 MLS/HR; Start 05/03/17 at 09:30 Miscellaneous Information 1 ea NOTE XX ; Start 05/03/17 at 13:00 Glucose (Glutose) 15 gm Q15M PRN PO DECREASED GLUCOSE; Start 05/03/17 at 12:45 Glucose (Glutose) 22.5 gm Q15M PRN PO DECREASED GLUCOSE; Start 05/03/17 at 12: 45 Dextrose (D50w Syringe) 25 ml Q15M PRN IV DECREASED GLUCOSE Last administered on 05/03/17 12:48; Admin Dose 25 ML; Start 05/03/17 at 12:45 Dextrose (D50w Syringe) 50 ml Q15M PRN IV DECREASED GLUCOSE; Start 05/03/17 at 12:46 Glucagon (Glucagen) 1 mg Q15M PRN IM DECREASED GLUCOSE; Start 05/03/17 at 12:46 Glucose 15 gm 15 gm Q15M PRN BUCCAL DECREASED GLUCOSE; Start 05/03/17 at 12:46 Midazolam HCl 50 ml @ 1 mls/hr TITRATE IV Last administered on 05/09/17 02:14 ; Admin Dose 3 MLS/HR; Start 05/03/17 at 15:00 Dextrose/Sodium Chloride (D5-NS) 1,000 ml @ 20 mls/hr Q24H IV Last administered on 05/10/17 04:20; Admin Dose 20 MLS/HR; Start 05/03/17 at 16:00 Metoclopramide HCl (Reglan) 5 mg Q6 IV Last administered on 05/10/17 13:17; Admin Dose 5 MG; Start 05/04/17 at 12:00 Nystatin 5 ml 5 ml QID PO Last administered on 05/10/17 13:16; Admin Dose 5 ML ; Start 05/04/17 at 13:00 Fentanyl (Sublimaze) 100 ml @ 5 mls/hr TITRATE IV Last administered on 17:20; Admin Dose 5 MLS/HR; Start 05/06/17 at 08:30 Amiodarone HCl (Cordarone) 400 mg BID NGT Last administered on 05/10/17 09:45 ; Admin Dose 400 MG; Start 05/06/17 at 18:00 Eye Lubricant (Akwa Oint) 1 applic Q4 PRN BOTH EYES dryness Last administered on 05/08/17 08:59; Admin Dose 1 APPLIC; Start 05/07/17 at 13:00 Miscellaneous Information (Pending [facility] Order For Wound Care) This patient otto... PRN PRN XX WOUND CARE; Start 05/07/17 at 13:30 Carvedilol (Coreg) 3.125 mg BID PO Last administered on 05/09/17 20:51; Admin Dose 3.125 MG; Start 05/09/17 at 21:00 Lisinopril (Zestril) 2.5 mg DAILY PO ; Start 05/10/17 at 09:00 Morphine Sulfate (morphine) 1 mg Q4H PRN IV pain; Start 05/10/17 at 09:00 Methylprednisolone Sodium Succinate (Solu-Medrol) 10 mg DAILY IV ; Start at 09:00; Stop 05/14/17 at 09:01 Acetaminophen (Tylenol Tab) 650 mg ONCE PO Last administered on 05/10/17 15:50 ; Admin Dose 650 MG; Start 05/10/17 at 09:00; Stop 05/11/17 at 08:59 KEVIN PICKERING MD May 10, 2017 16:06
--- NOTE | 2017-05-10 16:45 | CONS ---
Date/Time of Note Date/Time of Note DATE: 05/10/17 TIME: 16:42 Assessment/Plan Assessment/Plan Chief Complaint/Hosp Course #Thrombocytopenia -now improved and > 50K. pt has not needed transfusion since 05/06 -this is secondary to shock liver as evidenced by the markedly elevated AST/ALT (>7000/5000). Liver enzymes have greatly improved -no evidence of hemolytic anemia -will continue to check daily DIC panel and transfuse 1 unit cryo if fibrinogen is < 150. fibrinogen is currently > 300 -given platelet count is > 50K, pt is now on ASA 81 -would recommend platelet transfusion prior to left heart cath to minimize bleeding risk. can also run platelets during the procedure #Anemia -2/2 shock, sepsis and questionable bleed -Hg is currently stable #Cardiogenic shock with shock liver -management per cardiology -patient currently on ionotropic support -pt will need cath once his platelets recover #ESRD wit acidosis -continue HD as tolerated. currently blood pressure is very labile #Respiratory failure -currently intubated -cont management per pulmonary Problems: Consultation Date/Type/Reason Admit Date/Time Apr 29, 2017 at 19:31 Initial Consult Date 05/02/17 Type of Consultation: Hematology Reason for Consultation thrombocytopenia Referring Provider: YENNY WINSTON MD 24 HR Interval Summary Free Text/Dictation pt was extubated yesterday. counts are stable. no bleeding overnight Exam/Review of Systems Vital Signs Vitals Vital Signs Date Time Temp Pulse Resp B/P Pulse Ox O2 Delivery O2 Flow Rate FiO2 05/10/17 16:00 74 05/10/17 14:55 18 05/10/17 14:30 124/60 100 Nasal Cannula 3.0 05/10/17 12:00 97.3 05/09/17 13:30 30 Intake and Output 05/09/17 05/09/17 05/10/17 15:00 23:00 07:00 Intake Total 751 ml 340 ml 155 ml Output Total 2300 ml 0 ml 0 ml Balance -1549 ml 340 ml 155 ml Exam Constitutional: distress, frail, non-verbal Psych: no complaints Head: normocephalic Eyes: nl conjunctiva ENMT: nl external ears & nose Neck: supple Respiratory: clear to auscultation, normal air movement Cardiovascular: regular rate and rhythm Gastrointestinal: soft Musculoskeletal: nl extremities to inspection Extremities: normal pulses Results Result Diagram: 05/10/170 05/10/17419 Results 24 hrs Laboratory Tests Test 05/10/17 04:20 White Blood Count 24.6 H Red Blood Count 3.04 L Hemoglobin 9.9 L Hematocrit 29.9 L Mean Corpuscular Volume 98.4 Mean Corpuscular Hemoglobin 32.6 Mean Corpuscular Hemoglobin Concent 33.1 Red Cell Distribution Width 16.1 H Platelet Count 46 L Mean Platelet Volume 13.7 H Neutrophils % 91.7 H Lymphocytes % 1.4 L Monocytes % 5.0 Eosinophils % 0.0 Basophils % 0.1 Nucleated Red Blood Cells % 0.0 Neutrophils # 22.5 H Lymphocytes # 0.4 L Monocytes # 1.2 H Eosinophils # 0.0 Basophils # 0.0 Nucleated Red Blood Cells # 0.0 Sodium Level 139 Potassium Level 4.4 Chloride Level 102 Carbon Dioxide Level 29 Anion Gap 12 Blood Urea Nitrogen 67 H Creatinine 4.95 H Glucose Level 91 Calcium Level 7.5 L Phosphorus Level 4.7 Magnesium Level 2.2 Total Bilirubin 0.6 Direct Bilirubin 0.20 Indirect Bilirubin 0.4 Aspartate Amino Transf (AST/SGOT) 43 Alanine Aminotransferase (ALT/SGPT) 196 H Alkaline Phosphatase 153 H Troponin I 5.890 *H Total Protein 5.5 L Albumin 2.6 L Globulin 2.90 Albumin/Globulin Ratio 0.89 Medications Medications Current Medications Folic Acid (Folic Acid) 1 mg DAILY PO Last administered on 05/10/17 09:45; Admin Dose 1 MG; Start 04/30/17 at 09:00 Ondansetron HCl (Zofran Inj) 4 mg Q6H PRN IV NAUSEA AND/OR VOMITING Last administered on 05/03/17 23:24; Admin Dose 4 MG; Start 04/29/17 at 20:00 Nitroglycerin (Nitroglycerin (Sl Tab) 0.4 Mg) 1 tab Q5M PRN SL CHEST PAIN; Start 04/29/17 at 20:00 Acetaminophen (Tylenol Liquid) 650 mg Q6H PRN PO PAIN LEVEL 1-3 OR FEVER; Start 04/29/17 at 20:00 Acetaminophen (Tylenol Tab) 650 mg Q6H PRN PO PAIN LEVEL 1-3 OR FEVER; Start at 20:00 Acetaminophen/ Hydrocodone Bitart ([place] (5/325)) 1 tab Q6H PRN PO PAIN LEVEL 4 -6; Start 04/29/17 at 20:00 Zolpidem Tartrate (Ambien) 5 mg QHS PRN PO INSOMNIA; Start 04/29/17 at 20:00 Docusate Sodium (Colace) 100 mg Q12H PRN PO CONSTIPATION; Start 04/29/17 at 20: 00 Bisacodyl (Dulcolax) 5 mg DAILY PRN PO CONSTIPATION; Start 04/29/17 at 20:00 Aspirin 325 mg 325 mg DAILY PO Last administered on 05/10/17 09:52; Admin Dose 325 MG; Start 04/30/17 at 09:00 Vasopressin 60 unit/Dextrose 60 ml @ 1.2 mls/hr Q12H IV Last administered on 01:07; Admin Dose 2.4 MLS/HR; Start 04/30/17 at 13:00 Phenylephrine HCl 80 mg/Dextrose 250 ml @ 18.75 mls/ hr TITRATE IV Last administered on 05/04/17 09:57; Admin Dose 31.87 MLS/HR; Start 04/30/17 at 18: 00 Norepinephrine/ Dextrose (Levophed/D5W) 250 ml @ 0.46 mls/hr TITRATE IV Last administered on 05/06/17 05:15; Admin Dose 0.46 MLS/HR; Start 04/30/17 at 18:00 Pantoprazole (Protonix Iv) 40 mg BID@06,18 IV Last administered on 05/10/17 06 :11; Admin Dose 40 MG; Start 05/02/17 at 18:00 Diphenhydramine HCl 25 mg 25 mg Q4H PRN IV ITCHING Last administered on 16:41; Admin Dose 25 MG; Start 05/02/17 at 08:30 Cefepime HCl 50 ml @ 100 mls/hr Q24H IVPB Last administered on 05/10/17 15:34 ; Admin Dose 100 MLS/HR; Start 05/02/17 at 11:00 Dobutamine HCl/ Dextrose 250 ml @ 4.755 mls/ hr TITRATE IV Last administered on 05/07/17 05:21; Admin Dose 3.804 MLS/HR; Start 05/03/17 at 09:30 Miscellaneous Information 1 ea NOTE XX ; Start 05/03/17 at 13:00 Glucose (Glutose) 15 gm Q15M PRN PO DECREASED GLUCOSE; Start 05/03/17 at 12:45 Glucose (Glutose) 22.5 gm Q15M PRN PO DECREASED GLUCOSE; Start 05/03/17 at 12: 45 Dextrose (D50w Syringe) 25 ml Q15M PRN IV DECREASED GLUCOSE Last administered on 05/03/17 12:48; Admin Dose 25 ML; Start 05/03/17 at 12:45 Dextrose (D50w Syringe) 50 ml Q15M PRN IV DECREASED GLUCOSE; Start 05/03/17 at 12:46 Glucagon (Glucagen) 1 mg Q15M PRN IM DECREASED GLUCOSE; Start 05/03/17 at 12:46 Glucose 15 gm 15 gm Q15M PRN BUCCAL DECREASED GLUCOSE; Start 05/03/17 at 12:46 Midazolam HCl 50 ml @ 1 mls/hr TITRATE IV Last administered on 05/09/17 02:14 ; Admin Dose 3 MLS/HR; Start 05/03/17 at 15:00 Dextrose/Sodium Chloride (D5-NS) 1,000 ml @ 20 mls/hr Q24H IV Last administered on 05/10/17 04:20; Admin Dose 20 MLS/HR; Start 05/03/17 at 16:00 Metoclopramide HCl (Reglan) 5 mg Q6 IV Last administered on 05/10/17 13:17; Admin Dose 5 MG; Start 05/04/17 at 12:00 Nystatin 5 ml 5 ml QID PO Last administered on 05/10/17 13:16; Admin Dose 5 ML ; Start 05/04/17 at 13:00 Fentanyl (Sublimaze) 100 ml @ 5 mls/hr TITRATE IV Last administered on 17:20; Admin Dose 5 MLS/HR; Start 05/06/17 at 08:30 Amiodarone HCl (Cordarone) 400 mg BID NGT Last administered on 05/10/17 09:45 ; Admin Dose 400 MG; Start 05/06/17 at 18:00 Eye Lubricant (Akwa Oint) 1 applic Q4 PRN BOTH EYES dryness Last administered on 05/08/17 08:59; Admin Dose 1 APPLIC; Start 05/07/17 at 13:00 Miscellaneous Information (Pending [facility] Order For Wound Care) This patient otto... PRN PRN XX WOUND CARE; Start 05/07/17 at 13:30 Carvedilol (Coreg) 3.125 mg BID PO Last administered on 05/09/17 20:51; Admin Dose 3.125 MG; Start 05/09/17 at 21:00 Lisinopril (Zestril) 2.5 mg DAILY PO ; Start 05/10/17 at 09:00 Morphine Sulfate (morphine) 1 mg Q4H PRN IV pain; Start 05/10/17 at 09:00 Methylprednisolone Sodium Succinate (Solu-Medrol) 10 mg DAILY IV ; Start at 09:00; Stop 05/14/17 at 09:01 Acetaminophen (Tylenol Tab) 650 mg ONCE PO Last administered on 05/10/17 15:50 ; Admin Dose 650 MG; Start 05/10/17 at 09:00; Stop 05/11/17 at 08:59 JEFF HANSON M.D. May 10, 2017 16:45
[2017-05-10 17:46] LABS: AADO2 Arterial 74.2 mmHg (7.0-24.0); Allen Test ACCEPTAB; Arterial Base Excess 1.7 mmol/L (-3.0-3); Arterial COHb 0.6 % (0.0-3.0); Arterial Fraction of Oxyhgb 96.2 % (93.0-99.0); Arterial HCO3 25.6 mmol/L (22.0-26.0); Arterial MetHb 0.3 % (0.0-1.5); Arterial Total Hemglobin 10.3 g/dl (12.0-18.0); MODE NASAL CANNULA
[2017-05-11] VITALS (35 sets, daily range): BP systolic 100–168; BP diastolic 36–64; PULSE 63–82; RESP 18–31
[2017-05-11] MEDS: VASOPRESSIN 60 UNIT in DEXTROSE 5% 57 ML IV SCH ×3 (01:00→23:00)
[2017-05-11] MEDS: DEXTROSE 5%-0.9% NACL 1,000 ML IV SCH (05:00)
[2017-05-11 05:23] LABS: ABNORMAL IP MESSAGE 1; BASOPHILS % 0.1 % (0.0-2.0); HEMATOCRIT 28.3 % (42.0-52.0); HEMOGLOBIN 9.5 g/dl (14.0-18.0); LYMPHOCYTES # 0.3 10^3/ul (0.8-2.9); LYMPHOCYTES % 1.1 % (15.0-51.0); MEAN CORPUSCULAR HEMOGLOBIN 33.6 pg (29.0-33.0); MEAN CORPUSCULAR HGB CONC 33.6 g/dl (32.0-37.0); MEAN PLATELET VOLUME 11.9 fl (7.4-10.4); MONOCYTE # 1.3 10^3/ul (0.3-0.9); MONOCYTES % 4.1 % (0.0-11.0); NEUTROPHIL # 28.4 10^3/ul (1.6-7.5); NEUTROPHILS % 92.8 % (39.0-77.0); PLATELET COUNT 95 10^3/UL (140-415); POSITIVE DIFF @See below; RED BLOOD COUNT 2.83 10^6/ul (4.70-6.10); RED CELL DISTRIBUTION WIDTH 16.4 % (11.5-14.5); WHITE BLOOD COUNT 30.6 10^3/ul (4.8-10.8)
[2017-05-11] MEDS: PANTOPRAZOLE 40 MG INJ IV SCH ×2 (05:41→17:56)
[2017-05-11] MEDS: METOCLOPRAMIDE 10 MG INJ IV SCH ×5 (05:42→23:27)
[2017-05-11 05:46] LABS: MAGNESIUM 2.1 mg/dl (1.7-2.5); PHOSPHORUS 5.3 mg/dl (2.5-4.9)
[2017-05-11 05:48] LABS: ALBUMIN 3.1 g/dl (3.3-4.9); ALBUMIN/GLOBULIN RATIO 1.06; BILIRUBIN,DIRECT 0.2 mg/dl (0.00-0.20); BILIRUBIN,INDIRECT 0.4 mg/dl (0-1.1); BILIRUBIN,TOTAL 0.6 mg/dl (0.2-1.3); CALCIUM 7.7 mg/dl (8.4-10.2); CREATININE 4.99 mg/dl (0.61-1.24); POTASSIUM 4.5 mmol/L (3.5-5.1)
[2017-05-11] MEDS ORDERED: ALBUTEROL/IPRATROPIUM (NEB) 3 ML AMP HHN STA (08:19)
--- NOTE | 2017-05-11 08:32 | PN ---
Date/Time of Note Date/Time of Note DATE: 05/11/17 TIME: 08:25 Assessment/Plan VTE Prophylaxis VTE Prophylaxis Intervention: contraindicated VTE Contraindication Reason: bleeding Lines/Catheters IV Catheter Type (from Nrsg): Central Line Central line still needed: Yes Urinary Cath still in place: No Assessment/Plan Chief Complaint/Hosp Course 87 y/o with # s/p V Tachy/V Fib likely secondary to ischemia on Amiodarone and s/p Digoxin, now sinus # Shock likely Cardiogenic with AMI with Tropinins 150 on 3 pressors> downtrending Troponin to 40>15>7>5 likely combination of sepsis with Strep bactermia however repeat bld cx negative. Sputum cx+nelly. Currently off pressors. 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, now more edematous s/p daily HD # Acute on chronic heart failure with EF 30% # Shock liver improving LFTs with improving ischemia # Lactic acidosis improved # Respiratory failure on Vent s/p extubation however now again in respiratory distress, unable to keep up secretions # Thrombocytopenia s/p 1 unit platelets likley due to shock liver now improved # Anemia S/P 2 units PRBC # Right arm DVT but could not be on anticoagulation due to thrombocytopenia Recs - Stat Chest Xray, ABG - Stat Nebs - HD after nebs - Frequent deep suctioning - c/w ASA 325 mg/ Coreg/ Lisnopril, titration per cards - HD today - c/w Amiodarone 400 bid - c/w cefepime and repeat Bld cx negative so far, c/w Nystatin - c/w hydrocortisone -- Frequent suctioning and head of bed elevation - Spoke to Dr Montgomery who plan to do LHC on 05/13/17 - NPO , aspiration precautions Problems: Subjective 24 Hr Interval Summary Free Text/Dictation Pt tachypnic Head of bed elevated +Secretions++ present Exam/Review of Systems Vital Signs Vitals Vital Signs Date Time Temp Pulse Resp B/P Pulse Ox O2 Delivery O2 Flow Rate FiO2 05/11/17 06:00 71 26 168/58 96 Nasal Cannula 4.0 05/11/17 04:00 98.3 05/09/17 13:30 30 Intake and Output 05/10/17 05/10/17 05/11/17 14:59 22:59 06:59 Intake Total 820 ml 560 ml 290 ml Output Total 2600 ml 0 ml 0 ml Balance -1780 ml 560 ml 290 ml Exam General: opens eyes and follows commands, mild respiratory distress , head of bed elevated NECK: JVD elevated, no thyromegaly Lymph: no lymphadenopathy HEART: regular with no S3, BRANDI LUNGS:Coarse breath sounds b/l ABD: soft, NT, ND, +BS Neuro: non focal SKIN: chronic changes EXT: Edema arms 2+ more on rt arm>left Results Result Diagram: 05/11/1741905/11/17 042 Results 24 hrs Laboratory Tests Test 05/10/17 13:20 05/10/17 21:06 05/11/17 04:20 05/11/17 05:19 Blood Gas Specimen Source Blood arterial Arterial Blood Date Drawn 05/10/2017 5:35:31 PM Arterial Blood pH (Temp corrected) 7.454 H Arterial Blood pCO2 (Temp correct) 37.3 Arterial Blood pO2 (Temp corrected) 95.9 H Arterial Blood HCO3 25.6 Arterial Blood Base Excess 1.7 Arterial Blood Oxygen Saturation 97.1 Hunter Test ACCEPTAB Arterial Blood Gas Puncture Site Right Radial Arterial Blood Carboxyhemoglobin 0.6 Arterial Blood Methemoglobin 0.3 Blood Gas A-a O2 Differential 74.2 H Oxyhemoglobin Percent 96.2 Total Hemoglobin 10.3 L Blood Gas Temperature 37.0 Blood Gas Modality NASAL CANNULA FiO2 30.0 Blood Gas Notified Galilea MOORE RCP Blood Gas Notified Time 05/10/2017 5:45:24 PM Stool Occult Blood POSITIVE White Blood Count 30.6 #H Red Blood Count 2.83 L Hemoglobin 9.5 L Hematocrit 28.3 L Mean Corpuscular Volume 100.0 Mean Corpuscular Hemoglobin 33.6 H Mean Corpuscular Hemoglobin Concent 33.6 Red Cell Distribution Width 16.4 H Platelet Count 95 #L Mean Platelet Volume 11.9 H Neutrophils % 92.8 H Lymphocytes % 1.1 L Monocytes % 4.1 Eosinophils % 0.0 Basophils % 0.1 Nucleated Red Blood Cells % 0.0 Neutrophils # 28.4 H Lymphocytes # 0.3 L Monocytes # 1.3 H Eosinophils # 0.0 Basophils # 0.0 Nucleated Red Blood Cells # 0.0 Sodium Level 141 Potassium Level 4.5 Chloride Level 102 Carbon Dioxide Level 28 Anion Gap 16 Blood Urea Nitrogen 69 H Creatinine 4.99 H Glucose Level 107 Calcium Level 7.7 L Phosphorus Level 5.3 H Magnesium Level 2.1 Total Bilirubin 0.6 Direct Bilirubin 0.20 Indirect Bilirubin 0.4 Aspartate Amino Transf (AST/SGOT) 38 Alanine Aminotransferase (ALT/SGPT) 162 H Alkaline Phosphatase 152 H Troponin I 4.580 *H Total Protein 6.0 L Albumin 3.1 L Globulin 2.90 Albumin/Globulin Ratio 1.06 Lab Scanned Report BLOOD TRANSFUSION Medications Medications Current Medications Folic Acid (Folic Acid) 1 mg DAILY PO Last administered on 05/10/17 09:45; Admin Dose 1 MG; Start 04/30/17 at 09:00 Ondansetron HCl (Zofran Inj) 4 mg Q6H PRN IV NAUSEA AND/OR VOMITING Last administered on 05/03/17 23:24; Admin Dose 4 MG; Start 04/29/17 at 20:00 Nitroglycerin (Nitroglycerin (Sl Tab) 0.4 Mg) 1 tab Q5M PRN SL CHEST PAIN; Start 04/29/17 at 20:00 Acetaminophen (Tylenol Liquid) 650 mg Q6H PRN PO PAIN LEVEL 1-3 OR FEVER; Start 04/29/17 at 20:00 Acetaminophen (Tylenol Tab) 650 mg Q6H PRN PO PAIN LEVEL 1-3 OR FEVER; Start at 20:00 Acetaminophen/ Hydrocodone Bitart ([place] (5/325)) 1 tab Q6H PRN PO PAIN LEVEL 4 -6; Start 04/29/17 at 20:00 Zolpidem Tartrate (Ambien) 5 mg QHS PRN PO INSOMNIA; Start 04/29/17 at 20:00 Docusate Sodium (Colace) 100 mg Q12H PRN PO CONSTIPATION; Start 04/29/17 at 20: 00 Bisacodyl (Dulcolax) 5 mg DAILY PRN PO CONSTIPATION; Start 04/29/17 at 20:00 Aspirin 325 mg 325 mg DAILY PO Last administered on 05/10/17 09:52; Admin Dose 325 MG; Start 04/30/17 at 09:00 Vasopressin 60 unit/Dextrose 60 ml @ 1.2 mls/hr Q12H IV Last administered on 01:07; Admin Dose 2.4 MLS/HR; Start 04/30/17 at 13:00 Phenylephrine HCl 80 mg/Dextrose 250 ml @ 18.75 mls/ hr TITRATE IV Last administered on 05/04/17 09:57; Admin Dose 31.87 MLS/HR; Start 04/30/17 at 18: 00 Norepinephrine/ Dextrose (Levophed/D5W) 250 ml @ 0.46 mls/hr TITRATE IV Last administered on 05/06/17 05:15; Admin Dose 0.46 MLS/HR; Start 04/30/17 at 18:00 Pantoprazole (Protonix Iv) 40 mg BID@06,18 IV Last administered on 05/11/17 05 :41; Admin Dose 40 MG; Start 05/02/17 at 18:00 Diphenhydramine HCl 25 mg 25 mg Q4H PRN IV ITCHING Last administered on 16:41; Admin Dose 25 MG; Start 05/02/17 at 08:30 Cefepime HCl 50 ml @ 100 mls/hr Q24H IVPB Last administered on 05/10/17 15:34 ; Admin Dose 100 MLS/HR; Start 05/02/17 at 11:00 Dobutamine HCl/ Dextrose 250 ml @ 4.755 mls/ hr TITRATE IV Last administered on 05/07/17 05:21; Admin Dose 3.804 MLS/HR; Start 05/03/17 at 09:30 Miscellaneous Information 1 ea NOTE XX ; Start 05/03/17 at 13:00 Glucose (Glutose) 15 gm Q15M PRN PO DECREASED GLUCOSE; Start 05/03/17 at 12:45 Glucose (Glutose) 22.5 gm Q15M PRN PO DECREASED GLUCOSE; Start 05/03/17 at 12: 45 Dextrose (D50w Syringe) 25 ml Q15M PRN IV DECREASED GLUCOSE Last administered on 05/03/17 12:48; Admin Dose 25 ML; Start 05/03/17 at 12:45 Dextrose (D50w Syringe) 50 ml Q15M PRN IV DECREASED GLUCOSE; Start 05/03/17 at 12:46 Glucagon (Glucagen) 1 mg Q15M PRN IM DECREASED GLUCOSE; Start 05/03/17 at 12:46 Glucose 15 gm 15 gm Q15M PRN BUCCAL DECREASED GLUCOSE; Start 05/03/17 at 12:46 Midazolam HCl 50 ml @ 1 mls/hr TITRATE IV Last administered on 05/09/17 02:14 ; Admin Dose 3 MLS/HR; Start 05/03/17 at 15:00 Dextrose/Sodium Chloride (D5-NS) 1,000 ml @ 20 mls/hr Q24H IV Last administered on 05/11/17 05:00; Admin Dose 20 MLS/HR; Start 05/03/17 at 16:00 Metoclopramide HCl (Reglan) 5 mg Q6 IV Last administered on 05/11/17 05:42; Admin Dose 5 MG; Start 05/04/17 at 12:00 Nystatin 5 ml 5 ml QID PO Last administered on 05/10/17 20:08; Admin Dose 5 ML ; Start 05/04/17 at 13:00 Fentanyl (Sublimaze) 100 ml @ 5 mls/hr TITRATE IV Last administered on 17:20; Admin Dose 5 MLS/HR; Start 05/06/17 at 08:30 Amiodarone HCl (Cordarone) 400 mg BID NGT Last administered on 05/10/17 20:08 ; Admin Dose 400 MG; Start 05/06/17 at 18:00 Eye Lubricant (Akwa Oint) 1 applic Q4 PRN BOTH EYES dryness Last administered on 05/08/17 08:59; Admin Dose 1 APPLIC; Start 05/07/17 at 13:00 [facility] This patient otto... PRN PRN XX WOUND CARE; Start 05/07/17 at 13:30 Carvedilol (Coreg) 3.125 mg BID PO Last administered on 05/10/17 20:07; Admin Dose 3.125 MG; Start 05/09/17 at 21:00 Lisinopril (Zestril) 2.5 mg DAILY PO ; Start 05/10/17 at 09:00 Morphine Sulfate (morphine) 1 mg Q4H PRN IV pain; Start 05/10/17 at 09:00 Methylprednisolone Sodium Succinate (Solu-Medrol) 10 mg DAILY IV ; Start at 09:00; Stop 05/14/17 at 09:01 Acetaminophen (Tylenol Tab) 650 mg ONCE PO Last administered on 05/10/17 15:50 ; Admin Dose 650 MG; Start 05/10/17 at 09:00; Stop 05/11/17 at 08:59 ARNULFO BLEVINS MD May 11, 2017 08:32
[2017-05-11] MEDS ORDERED: SOD CHLORIDE 0.9% 1,000 ML IV PRN (08:37)
[2017-05-11 08:41] LABS: AADO2 Arterial 82.7 mmHg (7.0-24.0); Allen Test ACCEPTAB; Arterial Base Excess 1.1 mmol/L (-3.0-3); Arterial COHb 0.7 % (0.0-3.0); Arterial Fraction of Oxyhgb 94.6 % (93.0-99.0); Arterial HCO3 25.7 mmol/L (22.0-26.0); Arterial MetHb 0.3 % (0.0-1.5); Arterial Total Hemglobin 10.8 g/dl (12.0-18.0); MODE NASAL CANNULA
--- NOTE | 2017-05-11 08:51 | CONS ---
Date/Time of Note Date/Time of Note DATE: 05/11/17 TIME: 08:48 Assessment/Plan Assessment/Plan Additional Assessment/Plan 1.Acute DC-now downtrending cardiac enzymes without signs of ongoing myocardial necrosis - if stable, plan for LHC - not stable for stress test now with respiratory secretions. Amount of secretions increased - pulmonary team will see today. 2.Shock-improved off of all inotropes and pressors - off all pressors now. BETTER. 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 4.resp failure s/p intubation - extub now 5.renal failure-on HD - today - will follow 6. Leukocytosis 7. Thrombocytopenia-slowly improving 8. Shock liver-improving 9. CHF-systolic acute on chronic likely with EF 20% by echo this admit Consultation Date/Type/Reason Admit Date/Time Apr 29, 2017 at 19:31 Type of Consultation: Hematology Referring Provider: YENNY WINSTON MD 24 HR Interval Summary Free Text/Dictation NO acute events - BP in good range - no CP, doubt active ischemia - med Rr now - increased secretions noted. ROS: No fever, no chills, no nausea, no vomiting, no diarrhea/constipation No recent weight changes No chest pain, no PND, no orthopnea - no SOB now No dizziness, blurred vision No thirst, no heat or cold intolerance (per nurse) Exam/Review of Systems Vital Signs Vitals Vital Signs Date Time Temp Pulse Resp B/P Pulse Ox O2 Delivery O2 Flow Rate FiO2 05/11/17 06:00 71 26 168/58 96 Nasal Cannula 4.0 05/11/17 04:00 98.3 05/09/17 13:30 30 Intake and Output 05/10/17 05/10/17 05/11/17 15:00 23:00 07:00 Intake Total 820 ml 580 ml 250 ml Output Total 2600 ml 0 ml 0 ml Balance -1780 ml 580 ml 250 ml Exam General: WN/WD/NAD, AOx 2-3 mentating HEENT: Unicetric/atraumatic/EOMI (follows commands) NECK: JVD elevated, no thyromegaly Lymph: no lymphadenopathy HEART: regular with no S3, II/ systolic murmur at apex LUNGS: Coarse sounds ABD: soft, NT, ND, +BS : Intact Neuro: non focal SKIN: chronic changes EXT: trace edema Results Result Diagram: 05/11/17 0420 05/11/17 0420 Results 24 hrs Laboratory Tests Test 05/10/17 13:20 05/10/17 21:06 05/11/17 04:20 05/11/17 05:19 Blood Gas Specimen Source Blood arterial Arterial Blood Date Drawn 05/10/2017 5:35:31 PM Arterial Blood pH (Temp corrected) 7.454 H Arterial Blood pCO2 (Temp correct) 37.3 Arterial Blood pO2 (Temp corrected) 95.9 H Arterial Blood HCO3 25.6 Arterial Blood Base Excess 1.7 Arterial Blood Oxygen Saturation 97.1 Hunter Test ACCEPTAB Arterial Blood Gas Puncture Site Right Radial Arterial Blood Carboxyhemoglobin 0.6 Arterial Blood Methemoglobin 0.3 Blood Gas A-a O2 Differential 74.2 H Oxyhemoglobin Percent 96.2 Total Hemoglobin 10.3 L Blood Gas Temperature 37.0 Blood Gas Modality NASAL CANNULA FiO2 30.0 Blood Gas Notified Galilea MOORE RCP Blood Gas Notified Time 05/10/2017 5:45:24 PM Stool Occult Blood POSITIVE White Blood Count 30.6 #H Red Blood Count 2.83 L Hemoglobin 9.5 L Hematocrit 28.3 L Mean Corpuscular Volume 100.0 Mean Corpuscular Hemoglobin 33.6 H Mean Corpuscular Hemoglobin Concent 33.6 Red Cell Distribution Width 16.4 H Platelet Count 95 #L Mean Platelet Volume 11.9 H Neutrophils % 92.8 H Lymphocytes % 1.1 L Monocytes % 4.1 Eosinophils % 0.0 Basophils % 0.1 Nucleated Red Blood Cells % 0.0 Neutrophils # 28.4 H Lymphocytes # 0.3 L Monocytes # 1.3 H Eosinophils # 0.0 Basophils # 0.0 Nucleated Red Blood Cells # 0.0 Sodium Level 141 Potassium Level 4.5 Chloride Level 102 Carbon Dioxide Level 28 Anion Gap 16 Blood Urea Nitrogen 69 H Creatinine 4.99 H Glucose Level 107 Calcium Level 7.7 L Phosphorus Level 5.3 H Magnesium Level 2.1 Total Bilirubin 0.6 Direct Bilirubin 0.20 Indirect Bilirubin 0.4 Aspartate Amino Transf (AST/SGOT) 38 Alanine Aminotransferase (ALT/SGPT) 162 H Alkaline Phosphatase 152 H Troponin I 4.580 *H Total Protein 6.0 L Albumin 3.1 L Globulin 2.90 Albumin/Globulin Ratio 1.06 Lab Scanned Report BLOOD TRANSFUSION Test 05/11/17 08:30 Blood Gas Specimen Source Blood arterial Arterial Blood Date Drawn 05/11/2017 8:31:52 AM Arterial Blood pH (Temp corrected) 7.420 Arterial Blood pCO2 (Temp correct) 40.5 Arterial Blood pO2 (Temp corrected) 83.6 Arterial Blood HCO3 25.7 Arterial Blood Base Excess 1.1 Arterial Blood Oxygen Saturation 95.6 Hunter Test ACCEPTAB Arterial Blood Gas Puncture Site Right Radial Arterial Blood Carboxyhemoglobin 0.7 Arterial Blood Methemoglobin 0.3 Blood Gas A-a O2 Differential 82.7 H Oxyhemoglobin Percent 94.6 Total Hemoglobin 10.8 L Blood Gas Temperature 37.0 Blood Gas Modality NASAL CANNULA FiO2 30.0 Blood Gas Notified Whom JLD Blood Gas Notified Time 05/11/2017 8:40:59 AM Medications Medications Current Medications Folic Acid (Folic Acid) 1 mg DAILY PO Last administered on 05/10/17 09:45; Admin Dose 1 MG; Start 04/30/17 at 09:00 Ondansetron HCl (Zofran Inj) 4 mg Q6H PRN IV NAUSEA AND/OR VOMITING Last administered on 05/03/17 23:24; Admin Dose 4 MG; Start 04/29/17 at 20:00 Nitroglycerin (Nitroglycerin (Sl Tab) 0.4 Mg) 1 tab Q5M PRN SL CHEST PAIN; Start 04/29/17 at 20:00 Acetaminophen (Tylenol Liquid) 650 mg Q6H PRN PO PAIN LEVEL 1-3 OR FEVER; Start 04/29/17 at 20:00 Acetaminophen (Tylenol Tab) 650 mg Q6H PRN PO PAIN LEVEL 1-3 OR FEVER; Start at 20:00 Acetaminophen/ Hydrocodone Bitart ([place] (5/325)) 1 tab Q6H PRN PO PAIN LEVEL 4 -6; Start 04/29/17 at 20:00 Zolpidem Tartrate (Ambien) 5 mg QHS PRN PO INSOMNIA; Start 04/29/17 at 20:00 Docusate Sodium (Colace) 100 mg Q12H PRN PO CONSTIPATION; Start 04/29/17 at 20: 00 Bisacodyl (Dulcolax) 5 mg DAILY PRN PO CONSTIPATION; Start 04/29/17 at 20:00 Aspirin 325 mg 325 mg DAILY PO Last administered on 05/10/17 09:52; Admin Dose 325 MG; Start 04/30/17 at 09:00 Vasopressin 60 unit/Dextrose 60 ml @ 1.2 mls/hr Q12H IV Last administered on 01:07; Admin Dose 2.4 MLS/HR; Start 04/30/17 at 13:00 Phenylephrine HCl 80 mg/Dextrose 250 ml @ 18.75 mls/ hr TITRATE IV Last administered on 05/04/17 09:57; Admin Dose 31.87 MLS/HR; Start 04/30/17 at 18: 00 Norepinephrine/ Dextrose (Levophed/D5W) 250 ml @ 0.46 mls/hr TITRATE IV Last administered on 05/06/17 05:15; Admin Dose 0.46 MLS/HR; Start 04/30/17 at 18:00 Pantoprazole (Protonix Iv) 40 mg BID@06,18 IV Last administered on 05/11/17 05 :41; Admin Dose 40 MG; Start 05/02/17 at 18:00 Diphenhydramine HCl 25 mg 25 mg Q4H PRN IV ITCHING Last administered on 16:41; Admin Dose 25 MG; Start 05/02/17 at 08:30 Cefepime HCl 50 ml @ 100 mls/hr Q24H IVPB Last administered on 05/10/17 15:34 ; Admin Dose 100 MLS/HR; Start 05/02/17 at 11:00 Dobutamine HCl/ Dextrose 250 ml @ 4.755 mls/ hr TITRATE IV Last administered on 05/07/17 05:21; Admin Dose 3.804 MLS/HR; Start 05/03/17 at 09:30 Miscellaneous Information 1 ea NOTE XX ; Start 05/03/17 at 13:00 Glucose (Glutose) 15 gm Q15M PRN PO DECREASED GLUCOSE; Start 05/03/17 at 12:45 Glucose (Glutose) 22.5 gm Q15M PRN PO DECREASED GLUCOSE; Start 05/03/17 at 12: 45 Dextrose (D50w Syringe) 25 ml Q15M PRN IV DECREASED GLUCOSE Last administered on 05/03/17 12:48; Admin Dose 25 ML; Start 05/03/17 at 12:45 Dextrose (D50w Syringe) 50 ml Q15M PRN IV DECREASED GLUCOSE; Start 05/03/17 at 12:46 Glucagon (Glucagen) 1 mg Q15M PRN IM DECREASED GLUCOSE; Start 05/03/17 at 12:46 Glucose 15 gm 15 gm Q15M PRN BUCCAL DECREASED GLUCOSE; Start 05/03/17 at 12:46 Midazolam HCl 50 ml @ 1 mls/hr TITRATE IV Last administered on 05/09/17 02:14 ; Admin Dose 3 MLS/HR; Start 05/03/17 at 15:00 Dextrose/Sodium Chloride (D5-NS) 1,000 ml @ 20 mls/hr Q24H IV Last administered on 05/11/17 05:00; Admin Dose 20 MLS/HR; Start 05/03/17 at 16:00 Metoclopramide HCl (Reglan) 5 mg Q6 IV Last administered on 05/11/17 05:42; Admin Dose 5 MG; Start 05/04/17 at 12:00 Nystatin 5 ml 5 ml QID PO Last administered on 05/10/17 20:08; Admin Dose 5 ML ; Start 05/04/17 at 13:00 Fentanyl (Sublimaze) 100 ml @ 5 mls/hr TITRATE IV Last administered on 17:20; Admin Dose 5 MLS/HR; Start 05/06/17 at 08:30 Amiodarone HCl (Cordarone) 400 mg BID NGT Last administered on 05/10/17 20:08 ; Admin Dose 400 MG; Start 05/06/17 at 18:00 Eye Lubricant (Akwa Oint) 1 applic Q4 PRN BOTH EYES dryness Last administered on 05/08/17 08:59; Admin Dose 1 APPLIC; Start 05/07/17 at 13:00 Miscellaneous Information [facility] This patient otto... PRN PRN XX WOUND CARE; Start 05/07/17 at 13:30 Carvedilol (Coreg) 3.125 mg BID PO Last administered on 05/10/17 20:07; Admin Dose 3.125 MG; Start 05/09/17 at 21:00 Lisinopril (Zestril) 2.5 mg DAILY PO ; Start 05/10/17 at 09:00 Morphine Sulfate (morphine) 1 mg Q4H PRN IV pain; Start 05/10/17 at 09:00 Methylprednisolone Sodium Succinate (Solu-Medrol) 10 mg DAILY IV ; Start at 09:00; Stop 05/14/17 at 09:01 Acetaminophen 650 mg 650 mg ONCE PO Last administered on 05/10/17t 15:50; Admin Dose 650 MG; Start 05/10/17 at 09:00; Stop 05/11/17 at 08:59 Sodium Chloride (NS) 1,000 ml @ 0 mls/hr Q0M PRN IV TO KEEP SBP ABOVE 90; Start 05/11/17 at 08:37; Status UNCANDACE CALVERT MD May 11, 2017 08:51
[2017-05-11] MEDS: LISINOPRIL 5 MG TAB PO SCH (09:00)
[2017-05-11] MEDS ORDERED: MANNITOL 25% 50 ML IV PRN (09:00)
[2017-05-11] MEDS ORDERED: ALBUMIN HUMAN 25% 50 ML IV PRN (09:00)
[2017-05-11] MEDS: ASPIRIN 325 MG TAB PO SCH (09:34)
[2017-05-11] MEDS: AMIODARONE 200 MG TAB NGT SCH ×2 (09:35→21:06)
[2017-05-11] MEDS: FOLIC ACID 1 MG TAB PO SCH (09:35)
[2017-05-11] MEDS: NYSTATIN SUSP 5 ML CUP PO SCH ×4 (09:38→21:05)
--- NOTE | 2017-05-11 09:54 | RADRPT ---
PROCEDURE: XR Chest 1 view. CLINICAL INDICATION: Shortness of breath. TECHNIQUE: AP views of the chest were obtained. COMPARISON: May 09, 2017 FINDINGS: The heart is large. Calcified atherosclerosis is noted in the aorta. Median sternotomy wires and jackson rgical clips overlie the heart. Nasogastric tube has its distal end in the expected location of the stomach. Endotracheal tube has been removed. Central pulmonary vascular congestion and interstitial prominence in both lungs is unchanged. Retrocardiac opacity is stable. Patchy right lower lobe infil trates and small right pleural effusion are stable. Osseous structures are intact. IMPRESSION: Cardiomegaly with calcified atherosclerosis in the aorta. Interval extubation. Stable central pulmonary vascular congestion and mild interstitial prominence in both lungs. Stable retrocardiac opacity that may reflect left lower lobe atelectasis or infiltrate combined with moderate pleural effusion. Stable patchy right lower lobe infiltrates and small right pleural effusion. RPTAT: AA .Zuhair Norman MD, MD Date Time Electronically viewed and signed by .Zuhair Norman MD, on 05/11/2017 09:54 .P/
[2017-05-11] MEDS ORDERED: ALBUMIN HUMAN 25% 50 ML INJ IV PRN (10:00)
--- NOTE | 2017-05-11 10:26 | CONS ---
Date/Time of Note Date/Time of Note DATE: 05/11/17 TIME: 10:24 Assessment/Plan Assessment/Plan Additional Assessment/Plan Chest x-ray was reviewed from today which is showing left lower lobe infiltrative changes. Mild pulmonary edema is present. Next Assessment recommendations; 1. Patient admitted with collagenase shock status post extubation now patient having significant difficulty in keeping the airway open due to accumulated oral pharyngeal secretions which he is unable to cough out. Respiratory therapist also having significant difficulty in performing deep suction. 2. End-stage renal disease, on hemodialysis. 3. Upper GI bleed, with interval improvement. 4. Anemia and thrombocytopenia. 5. Prior history of CABG. 6. Severe generalized deconditioning. Continue supportive care. I am going to have a discussion with the family regarding DNR status. 35 minutes of critical care time was spent evaluating the patient. Consultation Date/Type/Reason Admit Date/Time Apr 29, 2017 at 19:31 Initial Consult Date 05/01/17 Type of Consultation: Pulmonary/critical care Referring Provider: YENNY WINSTON MD 24 HR Interval Summary Free Text/Dictation Patient's condition is tenuous at best. Appearing mildly tachypneic. Patient is having oropharyngeal secretions which he is unable to cough. General exam; elderly male, awake, currently in no distress. Exam/Review of Systems Vital Signs Vitals Vital Signs Date Time Temp Pulse Resp B/P Pulse Ox O2 Delivery O2 Flow Rate FiO2 05/11/17 08:00 69 05/11/17 06:00 26 168/58 96 Nasal Cannula 4.0 05/11/17 04:00 98.3 05/09/17 13:30 30 Intake and Output 05/10/17 05/10/17 05/11/17 15:00 23:00 07:00 Intake Total 820 ml 580 ml 250 ml Output Total 2600 ml 0 ml 0 ml Balance -1780 ml 580 ml 250 ml Exam HEENT exam; supple neck, positive JVD. No lymphadenopathy. Midline trachea. No thyromegaly. Patient does have multiple carious teeth. Pupils are small bilaterally. Chest exam; diminished breath sounds bilaterally. Scattered crackles. S1-S2 audible, no murmurs. There is a well-healed sternal scar. Abdomen exam; soft, nontender. Bowel sounds audible. No organomegaly. Extremity exam; trace edema. Patient has a multiple ecchymosis involving all 4 extremities. STOCKROOM ATTENDANT exam; patient awake and follows simple commands. Exhibiting profound generalized weakness. Results Result Diagram: 05/11/17 0420 05/11/17 0420 Results 24 hrs Laboratory Tests Test 05/10/17 13:20 05/10/17 21:06 05/11/17 04:20 05/11/17 05:19 Blood Gas Specimen Source Blood arterial Arterial Blood Date Drawn 05/10/2017 5:35:31 PM Arterial Blood pH (Temp corrected) 7.454 H Arterial Blood pCO2 (Temp correct) 37.3 Arterial Blood pO2 (Temp corrected) 95.9 H Arterial Blood HCO3 25.6 Arterial Blood Base Excess 1.7 Arterial Blood Oxygen Saturation 97.1 Hunter Test ACCEPTAB Arterial Blood Gas Puncture Site Right Radial Arterial Blood Carboxyhemoglobin 0.6 Arterial Blood Methemoglobin 0.3 Blood Gas A-a O2 Differential 74.2 H Oxyhemoglobin Percent 96.2 Total Hemoglobin 10.3 L Blood Gas Temperature 37.0 Blood Gas Modality NASAL CANNULA FiO2 30.0 Blood Gas Notified Galilea MOORE RCP Blood Gas Notified Time 05/10/2017 5:45:24 PM Stool Occult Blood POSITIVE White Blood Count 30.6 #H Red Blood Count 2.83 L Hemoglobin 9.5 L Hematocrit 28.3 L Mean Corpuscular Volume 100.0 Mean Corpuscular Hemoglobin 33.6 H Mean Corpuscular Hemoglobin Concent 33.6 Red Cell Distribution Width 16.4 H Platelet Count 95 #L Mean Platelet Volume 11.9 H Neutrophils % 92.8 H Lymphocytes % 1.1 L Monocytes % 4.1 Eosinophils % 0.0 Basophils % 0.1 Nucleated Red Blood Cells % 0.0 Neutrophils # 28.4 H Lymphocytes # 0.3 L Monocytes # 1.3 H Eosinophils # 0.0 Basophils # 0.0 Nucleated Red Blood Cells # 0.0 Sodium Level 141 Potassium Level 4.5 Chloride Level 102 Carbon Dioxide Level 28 Anion Gap 16 Blood Urea Nitrogen 69 H Creatinine 4.99 H Glucose Level 107 Calcium Level 7.7 L Phosphorus Level 5.3 H Magnesium Level 2.1 Total Bilirubin 0.6 Direct Bilirubin 0.20 Indirect Bilirubin 0.4 Aspartate Amino Transf (AST/SGOT) 38 Alanine Aminotransferase (ALT/SGPT) 162 H Alkaline Phosphatase 152 H Troponin I 4.580 *H Total Protein 6.0 L Albumin 3.1 L Globulin 2.90 Albumin/Globulin Ratio 1.06 Lab Scanned Report BLOOD TRANSFUSION Test 05/11/17 08:30 Blood Gas Specimen Source Blood arterial Arterial Blood Date Drawn 05/11/2017 8:31:52 AM Arterial Blood pH (Temp corrected) 7.420 Arterial Blood pCO2 (Temp correct) 40.5 Arterial Blood pO2 (Temp corrected) 83.6 Arterial Blood HCO3 25.7 Arterial Blood Base Excess 1.1 Arterial Blood Oxygen Saturation 95.6 Hunter Test ACCEPTAB Arterial Blood Gas Puncture Site Right Radial Arterial Blood Carboxyhemoglobin 0.7 Arterial Blood Methemoglobin 0.3 Blood Gas A-a O2 Differential 82.7 H Oxyhemoglobin Percent 94.6 Total Hemoglobin 10.8 L Blood Gas Temperature 37.0 Blood Gas Modality NASAL CANNULA FiO2 30.0 Blood Gas Notified Whom JLD Blood Gas Notified Time 05/11/2017 8:40:59 AM Medications Medications Current Medications Folic Acid (Folic Acid) 1 mg DAILY PO Last administered on 05/11/17 09:35; Admin Dose 1 MG; Start 04/30/17 at 09:00 Ondansetron HCl (Zofran Inj) 4 mg Q6H PRN IV NAUSEA AND/OR VOMITING Last administered on 05/03/17 23:24; Admin Dose 4 MG; Start 04/29/17 at 20:00 Nitroglycerin (Nitroglycerin (Sl Tab) 0.4 Mg) 1 tab Q5M PRN SL CHEST PAIN; Start 04/29/17 at 20:00 Acetaminophen (Tylenol Liquid) 650 mg Q6H PRN PO PAIN LEVEL 1-3 OR FEVER; Start 04/29/17 at 20:00 Acetaminophen (Tylenol Tab) 650 mg Q6H PRN PO PAIN LEVEL 1-3 OR FEVER; Start at 20:00 Acetaminophen/ Hydrocodone Bitart ([place] (5/325)) 1 tab Q6H PRN PO PAIN LEVEL 4 -6; Start 04/29/17 at 20:00 Zolpidem Tartrate (Ambien) 5 mg QHS PRN PO INSOMNIA; Start 04/29/17 at 20:00 Docusate Sodium (Colace) 100 mg Q12H PRN PO CONSTIPATION; Start 04/29/17 at 20: 00 Bisacodyl (Dulcolax) 5 mg DAILY PRN PO CONSTIPATION; Start 04/29/17 at 20:00 Aspirin 325 mg 325 mg DAILY PO Last administered on 05/11/17 09:34; Admin Dose 325 MG; Start 04/30/17 at 09:00 Vasopressin 60 unit/Dextrose 60 ml @ 1.2 mls/hr Q12H IV Last administered on 01:07; Admin Dose 2.4 MLS/HR; Start 04/30/17 at 13:00 Phenylephrine HCl 80 mg/Dextrose 250 ml @ 18.75 mls/ hr TITRATE IV Last administered on 05/04/17 09:57; Admin Dose 31.87 MLS/HR; Start 04/30/17 at 18: 00 Norepinephrine/ Dextrose (Levophed/D5W) 250 ml @ 0.46 mls/hr TITRATE IV Last administered on 05/06/17 05:15; Admin Dose 0.46 MLS/HR; Start 04/30/17 at 18:00 Pantoprazole (Protonix Iv) 40 mg BID@06,18 IV Last administered on 05/11/17 05 :41; Admin Dose 40 MG; Start 05/02/17 at 18:00 Diphenhydramine HCl 25 mg 25 mg Q4H PRN IV ITCHING Last administered on 16:41; Admin Dose 25 MG; Start 05/02/17 at 08:30 Cefepime HCl 50 ml @ 100 mls/hr Q24H IVPB Last administered on 05/10/17 15:34 ; Admin Dose 100 MLS/HR; Start 05/02/17 at 11:00 Dobutamine HCl/ Dextrose 250 ml @ 4.755 mls/ hr TITRATE IV Last administered on 05/07/17 05:21; Admin Dose 3.804 MLS/HR; Start 05/03/17 at 09:30 Miscellaneous Information 1 ea NOTE XX ; Start 05/03/17 at 13:00 Glucose (Glutose) 15 gm Q15M PRN PO DECREASED GLUCOSE; Start 05/03/17 at 12:45 Glucose (Glutose) 22.5 gm Q15M PRN PO DECREASED GLUCOSE; Start 05/03/17 at 12: 45 Dextrose (D50w Syringe) 25 ml Q15M PRN IV DECREASED GLUCOSE Last administered on 05/03/17 12:48; Admin Dose 25 ML; Start 05/03/17 at 12:45 Dextrose (D50w Syringe) 50 ml Q15M PRN IV DECREASED GLUCOSE; Start 05/03/17 at 12:46 Glucagon (Glucagen) 1 mg Q15M PRN IM DECREASED GLUCOSE; Start 05/03/17 at 12:46 Glucose 15 gm 15 gm Q15M PRN BUCCAL DECREASED GLUCOSE; Start 05/03/17 at 12:46 Midazolam HCl 50 ml @ 1 mls/hr TITRATE IV Last administered on 05/09/17 02:14 ; Admin Dose 3 MLS/HR; Start 05/03/17 at 15:00 Dextrose/Sodium Chloride (D5-NS) 1,000 ml @ 20 mls/hr Q24H IV Last administered on 05/11/17 05:00; Admin Dose 20 MLS/HR; Start 05/03/17 at 16:00 Metoclopramide HCl (Reglan) 5 mg Q6 IV Last administered on 05/11/17 05:42; Admin Dose 5 MG; Start 05/04/17 at 12:00 Nystatin 5 ml 5 ml QID PO Last administered on 05/11/17 09:38; Admin Dose 5 ML ; Start 05/04/17 at 13:00 Fentanyl (Sublimaze) 100 ml @ 5 mls/hr TITRATE IV Last administered on 17:20; Admin Dose 5 MLS/HR; Start 05/06/17 at 08:30 Amiodarone HCl (Cordarone) 400 mg BID NGT Last administered on 05/11/17 09:35 ; Admin Dose 400 MG; Start 05/06/17 at 18:00 Eye Lubricant (Akwa Oint) 1 applic Q4 PRN BOTH EYES dryness Last administered on 05/08/17 08:59; Admin Dose 1 APPLIC; Start 05/07/17 at 13:00 Miscellaneous Information (Pending [facility] Order For Wound Care) This patient otto... PRN PRN XX WOUND CARE; Start 05/07/17 at 13:30 Carvedilol (Coreg) 3.125 mg BID PO Last administered on 05/10/17 20:07; Admin Dose 3.125 MG; Start 05/09/17 at 21:00 Lisinopril (Zestril) 2.5 mg DAILY PO ; Start 05/10/17 at 09:00 Morphine Sulfate (morphine) 1 mg Q4H PRN IV pain; Start 05/10/17 at 09:00 Methylprednisolone Sodium Succinate 10 mg 10 mg DAILY IV ; Start 05/13/17 at 09: 00; Stop 05/14/17 at 09:01 Sodium Chloride (NS) 1,000 ml @ 0 mls/hr Q0M PRN IV TO KEEP SBP ABOVE 90; Start 05/11/17 at 08:37; Stop 05/11/17 at 22:00 Albumin Human (Albumin Human 25%) 100 ml ONCE PRN IV SBP < 90 DURING DIALYSIS; Start 05/11/17 at 10:00; Stop 05/11/17 at 16:00 CHARLES EMMANUEL May 11, 2017 10:26
[2017-05-11] MEDS ORDERED: VANCOMYCIN IV PER PHARMACY XX SCH (10:30)
[2017-05-11] MEDS: CEFEPIME 1GM/50 ML (PMX) 50 ML IVPB SCH (11:22)
[2017-05-11] MEDS ORDERED: VANCOMYCIN 1 GM in NS 250 ML IVPB SCH (12:00)
[2017-05-11] MEDS: IPRATROPIUM (HFA) 12.9 GM INHALER INH SCH ×3 (13:29→20:00)
--- NOTE | 2017-05-11 13:59 | PN ---
DATE: 05/11/2017 SUBJECTIVE DATA: No acute events overnight. The patient is lethargic, comfortable on nasal cannula. No fevers. OBJECTIVE DATA: VITAL SIGNS: Temperature 98.3, pulse 70, respirations 26, blood pressure 168/58, saturation 96 on 4 L nasal cannula. LABORATORY DATA: WBC 30.6, H and H 9.5 and 28.3, platelets 95, neutrophils 92.8. DIAGNOSTICS: Chest x-ray this morning revealed stable central pulmonary vascular congestion. Stable patchy right lower lobe infiltrate and small right pleural effusion. INDWELLINGS: NG tube, left upper extremity AV fistula, right femoral triple lumen catheter. PHYSICAL EXAMINATION: GENERAL: Well developed, elderly, man who is in no distress. HEENT: Head atraumatic, normocephalic. Sclerae anicteric. Buccal mucosa dry. NECK: Supple. Trachea midline. CHEST: Rise symmetrical. Breath sounds diminished at the bases. HEART: S1, S2. ABDOMEN: Soft, bowel sounds present. EXTREMITIES: Without cyanosis. ASSESSMENT: 1. Status post shock. 2. Status post acute respiratory failure, extubated a couple of days ago. 3. Acute myocardial infarction. 4. Resolving pneumonia. 5. History of streptococcal bacteremia on admission with repeat cultures being negative. 6. End-stage renal disease, hemodialysis dependent. 7. Anemia and thrombocytopenia. 8. History of coronary artery bypass grafting. 9. Persistent leukocytosis, patient is on steroids. PLAN: The patient remains stable. He was restarted on broad- spectrum antibiotics by Pulmonary for worsening leukocytosis in light of steroid taper now only on 10 mg Solu-Medrol daily. We will change cefepime to meropenem. Continue vancomycin. Continue anti-aspiration measures. Follow recommendations of consultants. Dictated By: Chelly Hudson NP /valarie/annalise /Document#: [id number] LUIS A
[2017-05-11] MEDS: ALBUTEROL 18 GM INHALER INH SCH ×2 (14:00→20:00)
[2017-05-11] MEDS: MEROPENEM 500MG/50 ML (PMX) 50 ML IVPB SCH (15:40)
[2017-05-11] MEDS: SCOPOLAMINE 1.5 MG PATCH TRANSDERM SCH (17:55)
[2017-05-12] VITALS (63 sets, daily range): BP systolic 69–160; BP diastolic 25–93; PULSE 60–87; RESP 15–37
[2017-05-12] MEDS: ALBUTEROL 18 GM INHALER INH SCH ×3 (02:42→20:01)
[2017-05-12] MEDS: IPRATROPIUM (HFA) 12.9 GM INHALER INH SCH ×3 (02:42→20:01)
[2017-05-12] MEDS: METOCLOPRAMIDE 10 MG INJ IV SCH ×3 (05:22→17:27)
[2017-05-12] MEDS: PANTOPRAZOLE 40 MG INJ IV SCH ×2 (05:22→17:27)
[2017-05-12 06:28] LABS: AADO2 Arterial 148.7 mmHg (7.0-24.0); Allen Test ACCEPTAB; Arterial Base Excess 1.9 mmol/L (-3.0-3); Arterial COHb 0.4 % (0.0-3.0); Arterial Fraction of Oxyhgb 96.3 % (93.0-99.0); Arterial HCO3 28.6 mmol/L (22.0-26.0); Arterial MetHb 0.3 % (0.0-1.5); Arterial Total Hemglobin 10.1 g/dl (12.0-18.0); MODE MASK - SIMPLE
--- NOTE | 2017-05-12 08:23 | PN ---
Date/Time of Note Date/Time of Note DATE: 05/12/17 TIME: 08:18 Assessment/Plan VTE Prophylaxis VTE Prophylaxis Intervention: contraindicated VTE Contraindication Reason: bleeding Lines/Catheters IV Catheter Type (from Nrsg): Central Line Central line still needed: Yes Urinary Cath still in place: No Assessment/Plan Chief Complaint/Hosp Course 87 y/o with # s/p V Tachy/V Fib likely secondary to ischemia on Amiodarone and s/p Digoxin, now sinus # Shock likely Cardiogenic with AMI with Tropinins 150 on 3 pressors> downtrending Troponin to 40>15>7>5 likely combination of sepsis with Strep bactermia however repeat bld cx negative. Sputum cx+nelly. Currently off pressors. 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, now more edematous s/p daily HD # Acute on chronic heart failure with EF 30% # Shock liver improving LFTs with improving ischemia # Lactic acidosis improved # Respiratory failure on Vent s/p extubation however now again in respiratory distress, unable to keep up secretions # Thrombocytopenia s/p 1 unit platelets likley due to shock liver now improved # Anemia S/P 2 units PRBC # Right arm DVT but could not be on anticoagulation due to thrombocytopenia Recs - s/p HD yesterday with removal of 3 L - Will do 2 hrs of HD today before C tmw - Will talk to Dr Harrison for possible Reintubation - Frequent deep suctioning, HOB elevated, scopalamine patch - c/w ASA 325 mg/ Coreg/ Lisnopril, titration per cards thru NG tube - c/w Vancomycin and Meropenam per I.D labs pending - c/w Amiodarone 400 bid - c/w hydrocortisone 10 mg - Spoke to Dr Montgomery who plan to do LHC on 05/13/17 - NPO , aspiration precautions - Labs pending today Problems: Subjective 24 Hr Interval Summary Free Text/Dictation Pt mildly tachypnic, has lot of oral secretions Awake and follows commands Labs pending Exam/Review of Systems Vital Signs Vitals Vital Signs Date Time Temp Pulse Resp B/P Pulse Ox O2 Delivery O2 Flow Rate FiO2 05/12/17 08:00 97.7 76 27 149/49 98 Nasal Cannula 4.0 05/09/17 13:30 30 Intake and Output 05/11/17 05/11/17 05/12/17 15:00 23:00 07:00 Intake Total 740 ml 410 ml 290 ml Output Total 3500 ml Balance -2760 ml 410 ml 290 ml Exam General: opens eyes and follows commands, mild respiratory distress , head of bed elevated NECK: JVD elevated, no thyromegaly Lymph: no lymphadenopathy HEART: regular with no S3, BRANDI LUNGS:Coarse breath sounds b/l ABD: soft, NT, ND, +BS Neuro: non focal SKIN: chronic changes EXT: Edema arms 2+ more on rt arm>left Results Result Diagram: 05/11/17 04205/11/17 042 Results 24 hrs Laboratory Tests Test 05/11/17 08:30 05/12/17 06:08 Blood Gas Specimen Source Blood arterial Blood arterial Arterial Blood Date Drawn 05/11/2017 8:31:52 AM 05/12/2017 6:20:17 AM Arterial Blood pH (Temp corrected) 7.420 7.325 L Arterial Blood pCO2 (Temp correct) 40.5 56.2 H Arterial Blood pO2 (Temp corrected) 83.6 108.2 H Arterial Blood HCO3 25.7 28.6 H Arterial Blood Base Excess 1.1 1.9 Arterial Blood Oxygen Saturation 95.6 97.0 Hutner Test ACCEPTAB ACCEPTAB Arterial Blood Gas Puncture Site Right Radial Left Radial Arterial Blood Carboxyhemoglobin 0.7 0.4 Arterial Blood Methemoglobin 0.3 0.3 Blood Gas A-a O2 Differential 82.7 H 148.7 H Oxyhemoglobin Percent 94.6 96.3 Total Hemoglobin 10.8 L 10.1 L Blood Gas Temperature 37.0 37.0 Blood Gas Modality NASAL CANNULA MASK - SIMPLE FiO2 30.0 45.0 Blood Gas Notified Whom PEÑA WALLACE Blood Gas Notified Time 05/11/2017 8:40:59 AM 05/12/2017 6:28:16 AM Medications Medications Current Medications Folic Acid (Folic Acid) 1 mg DAILY PO Last administered on 05/11/17 09:35; Admin Dose 1 MG; Start 04/30/17 at 09:00 Ondansetron HCl (Zofran Inj) 4 mg Q6H PRN IV NAUSEA AND/OR VOMITING Last administered on 05/03/17 23:24; Admin Dose 4 MG; Start 04/29/17 at 20:00 Nitroglycerin (Nitroglycerin (Sl Tab) 0.4 Mg) 1 tab Q5M PRN SL CHEST PAIN; Start 04/29/17 at 20:00 Acetaminophen (Tylenol Liquid) 650 mg Q6H PRN PO PAIN LEVEL 1-3 OR FEVER; Start 04/29/17 at 20:00 Acetaminophen (Tylenol Tab) 650 mg Q6H PRN PO PAIN LEVEL 1-3 OR FEVER; Start at 20:00 Acetaminophen/ Hydrocodone Bitart ([place] (5/325)) 1 tab Q6H PRN PO PAIN LEVEL 4 -6; Start 04/29/17 at 20:00 Zolpidem Tartrate (Ambien) 5 mg QHS PRN PO INSOMNIA; Start 04/29/17 at 20:00 Docusate Sodium (Colace) 100 mg Q12H PRN PO CONSTIPATION; Start 04/29/17 at 20: 00 Bisacodyl (Dulcolax) 5 mg DAILY PRN PO CONSTIPATION; Start 04/29/17 at 20:00 Aspirin 325 mg 325 mg DAILY PO Last administered on 05/11/17 09:34; Admin Dose 325 MG; Start 04/30/17 at 09:00 Vasopressin 60 unit/Dextrose 60 ml @ 1.2 mls/hr Q12H IV Last administered on 01:07; Admin Dose 2.4 MLS/HR; Start 04/30/17 at 13:00 Phenylephrine HCl 80 mg/Dextrose 250 ml @ 18.75 mls/ hr TITRATE IV Last administered on 05/04/17 09:57; Admin Dose 31.87 MLS/HR; Start 04/30/17 at 18: 00 Norepinephrine/ Dextrose (Levophed/D5W) 250 ml @ 0.46 mls/hr TITRATE IV Last administered on 05/06/17 05:15; Admin Dose 0.46 MLS/HR; Start 04/30/17 at 18:00 Pantoprazole (Protonix Iv) 40 mg BID@06,18 IV Last administered on 05/12/17 05 :22; Admin Dose 40 MG; Start 05/02/17 at 18:00 Diphenhydramine HCl 25 mg 25 mg Q4H PRN IV ITCHING Last administered on 16:41; Admin Dose 25 MG; Start 05/02/17 at 08:30 Dobutamine HCl/ Dextrose 250 ml @ 4.755 mls/ hr TITRATE IV Last administered on 05/07/17 05:21; Admin Dose 3.804 MLS/HR; Start 05/03/17 at 09:30 Miscellaneous Information 1 ea NOTE XX ; Start 05/03/17 at 13:00 Glucose (Glutose) 15 gm Q15M PRN PO DECREASED GLUCOSE; Start 05/03/17 at 12:45 Glucose (Glutose) 22.5 gm Q15M PRN PO DECREASED GLUCOSE; Start 05/03/17 at 12: 45 Dextrose (D50w Syringe) 25 ml Q15M PRN IV DECREASED GLUCOSE Last administered on 05/03/17 12:48; Admin Dose 25 ML; Start 05/03/17 at 12:45 Dextrose (D50w Syringe) 50 ml Q15M PRN IV DECREASED GLUCOSE; Start 05/03/17 at 12:46 Glucagon (Glucagen) 1 mg Q15M PRN IM DECREASED GLUCOSE; Start 05/03/17 at 12:46 Glucose 15 gm 15 gm Q15M PRN BUCCAL DECREASED GLUCOSE; Start 05/03/17 at 12:46 Midazolam HCl 50 ml @ 1 mls/hr TITRATE IV Last administered on 05/09/17 02:14 ; Admin Dose 3 MLS/HR; Start 05/03/17 at 15:00 Dextrose/Sodium Chloride (D5-NS) 1,000 ml @ 20 mls/hr Q24H IV Last administered on 05/11/17 05:00; Admin Dose 20 MLS/HR; Start 05/03/17 at 16:00 Metoclopramide HCl (Reglan) 5 mg Q6 IV Last administered on 05/12/17 05:22; Admin Dose 5 MG; Start 05/04/17 at 12:00 Nystatin 5 ml 5 ml QID PO Last administered on 05/11/17 21:05; Admin Dose 5 ML ; Start 05/04/17 at 13:00 Fentanyl (Sublimaze) 100 ml @ 5 mls/hr TITRATE IV Last administered on 17:20; Admin Dose 5 MLS/HR; Start 05/06/17 at 08:30 Amiodarone HCl (Cordarone) 400 mg BID NGT Last administered on 05/11/17 21:06 ; Admin Dose 400 MG; Start 05/06/17 at 18:00 Eye Lubricant (Akwa Oint) 1 applic Q4 PRN BOTH EYES dryness Last administered on 05/08/17 08:59; Admin Dose 1 APPLIC; Start 05/07/17 at 13:00 [facility]iscellaneous [facility] This patient otto... PRN PRN XX WOUND CARE; Start 05/07/17 at 13:30 Carvedilol (Coreg) 3.125 mg BID PO Last administered on 05/11/17 21:05; Admin Dose 3.125 MG; Start 05/09/17 at 21:00 Lisinopril (Zestril) 2.5 mg DAILY PO ; Start 05/10/17 at 09:00 Morphine Sulfate (morphine) 1 mg Q4H PRN IV pain; Start 05/10/17 at 09:00 Methylprednisolone Sodium Succinate 10 mg 10 mg DAILY IV ; Start 05/13/17 at 09: 00; Stop 05/14/17 at 09:01 Meropenem/Sodium Chloride (Merrem 500mg/50 ml(Pmx)) 50 ml @ 100 mls/hr Q24H IVPB Last administered on 05/11/17 15:40; Admin Dose 100 MLS/HR; Start at 14:30 Scopolamine (Transderm-Scop) 1 patch Q72H TRANSDERM Last administered on 17:55; Admin Dose 1 PATCH; Start 05/11/17 at 16:30 ARNULFO BLEVINS MD May 12, 2017 08:23
[2017-05-12] MEDS ORDERED: SOD CHLORIDE 0.9% 1,000 ML IV PRN (08:24)
[2017-05-12] MEDS ORDERED: MANNITOL 25% 50 ML IV PRN (08:30)
[2017-05-12] MEDS: LISINOPRIL 5 MG TAB PO SCH (09:00)
[2017-05-12] MEDS: MIDAZOLAM (DRIP) 50 mg/50 mL 50 ML IV SCH (09:36)
[2017-05-12] MEDS: AMIODARONE 200 MG TAB NGT SCH ×2 (09:57→21:10)
[2017-05-12] MEDS: ASPIRIN 325 MG TAB PO SCH (09:57)
[2017-05-12] MEDS: NYSTATIN SUSP 5 ML CUP PO SCH ×4 (09:57→21:09)
[2017-05-12] MEDS: FOLIC ACID 1 MG TAB PO SCH (09:57)
--- NOTE | 2017-05-12 10:16 | CONS ---
Date/Time of Note Date/Time of Note DATE: 05/12/17 TIME: 10:12 Assessment/Plan Assessment/Plan Additional Assessment/Plan Assessment and recommendations; 1. Patient admitted with severe cardiogenic shock status post pressor support. Has been extubated now more than 48 hours ago but now requiring reintubation because of inability to clear pharyngeal secretions and worsening hypoxemia. 2. Possibly left lower lobe aspiration pneumonia with increasing leukocytosis. 3. Chronic renal failure, on hemodialysis. 4. Status post upper GI bleed. 5. Prior CABG. 6. Anemia and thrombocytopenia. 7. Likely underlying CAD. Patient has been reintubated. Please see procedure note. Patient will need to have coronary angiogram which has been planned apparently for tomorrow. Overall prognosis remains extremely poor on account of multiple comorbidities. 35 minutes of critical care time was spent evaluating the patient. Consultation Date/Type/Reason Admit Date/Time Apr 29, 2017 at 19:31 Initial Consult Date 05/01/17 Type of Consultation: Pulmonary/critical care Referring Provider: YENNY WINSTON MD 24 HR Interval Summary Free Text/Dictation Patient's condition is taken a turn for the worse. Patient is awake but appearing more hypoxemic and tachypneic. I did have a discussion the patient's daughter at bedside and she wants her father to be reintubated. I also had a detailed discussion with the family yesterday about the patient condition and the family is unwilling for a DNR status. General exam; elderly male, appearing in mild respiratory distress. Awake. Exam/Review of Systems Vital Signs Vitals Vital Signs Date Time Temp Pulse Resp B/P Pulse Ox O2 Delivery O2 Flow Rate FiO2 05/12/17 09:30 60 05/12/17 08:00 97.7 76 27 149/49 98 Nasal Cannula 4.0 Intake and Output 05/11/17 05/11/17 05/12/17 15:00 23:00 07:00 Intake Total 740 ml 410 ml 290 ml Output Total 3500 ml Balance -2760 ml 410 ml 290 ml Exam HEENT exam; supple neck, positive JVD. No lymphadenopathy. Midline trachea. No thyromegaly. Patient has a multiple carious teeth. Pupils are small bilaterally. Chest exam; diminished breath sounds bilaterally. S1-S2 audible, no murmurs. Regular rhythm. There is a well-healed sternal scar. Abdomen exam; soft, protuberant. Bowel sounds are sluggish. No organomegaly. Nontender. Extremity exam; trace edema. Patient has a multiple ecchymosis involving all 4 extremities. [employer] exam; patient is awake and appearing lethargic. Results Result Diagram: 05/11/17 0420 05/11/17 0420 Results 24 hrs Laboratory Tests Test 05/12/17 06:08 Blood Gas Specimen Source Blood arterial Arterial Blood Date Drawn 05/12/2017 6:20:17 AM Arterial Blood pH (Temp corrected) 7.325 L Arterial Blood pCO2 (Temp correct) 56.2 H Arterial Blood pO2 (Temp corrected) 108.2 H Arterial Blood HCO3 28.6 H Arterial Blood Base Excess 1.9 Arterial Blood Oxygen Saturation 97.0 Hunter Test ACCEPTAB Arterial Blood Gas Puncture Site Left Radial Arterial Blood Carboxyhemoglobin 0.4 Arterial Blood Methemoglobin 0.3 Blood Gas A-a O2 Differential 148.7 H Oxyhemoglobin Percent 96.3 Total Hemoglobin 10.1 L Blood Gas Temperature 37.0 Blood Gas Modality MASK - SIMPLE FiO2 45.0 Blood Gas Notified Whom MA Blood Gas Notified Time 05/12/2017 6:28:16 AM Medications Medications Current Medications Folic Acid (Folic Acid) 1 mg DAILY PO Last administered on 05/12/17 09:57; Admin Dose 1 MG; Start 04/30/17 at 09:00 Ondansetron HCl (Zofran Inj) 4 mg Q6H PRN IV NAUSEA AND/OR VOMITING Last administered on 05/03/17 23:24; Admin Dose 4 MG; Start 04/29/17 at 20:00 Nitroglycerin (Nitroglycerin (Sl Tab) 0.4 Mg) 1 tab Q5M PRN SL CHEST PAIN; Start 04/29/17 at 20:00 Acetaminophen (Tylenol Liquid) 650 mg Q6H PRN PO PAIN LEVEL 1-3 OR FEVER; Start 04/29/17 at 20:00 Acetaminophen (Tylenol Tab) 650 mg Q6H PRN PO PAIN LEVEL 1-3 OR FEVER; Start at 20:00 Acetaminophen/ Hydrocodone Bitart ([place] (5/325)) 1 tab Q6H PRN PO PAIN LEVEL 4 -6; Start 04/29/17 at 20:00 Zolpidem Tartrate (Ambien) 5 mg QHS PRN PO INSOMNIA; Start 04/29/17 at 20:00 Docusate Sodium (Colace) 100 mg Q12H PRN PO CONSTIPATION; Start 04/29/17 at 20: 00 Bisacodyl (Dulcolax) 5 mg DAILY PRN PO CONSTIPATION; Start 04/29/17 at 20:00 Aspirin 325 mg 325 mg DAILY PO Last administered on 05/12/17 09:57; Admin Dose 325 MG; Start 04/30/17 at 09:00 Vasopressin 60 unit/Dextrose 60 ml @ 1.2 mls/hr Q12H IV Last administered on 01:07; Admin Dose 2.4 MLS/HR; Start 04/30/17 at 13:00 Phenylephrine HCl 80 mg/Dextrose 250 ml @ 18.75 mls/ hr TITRATE IV Last administered on 05/04/17 09:57; Admin Dose 31.87 MLS/HR; Start 04/30/17 at 18: 00 Norepinephrine/ Dextrose (Levophed/D5W) 250 ml @ 0.46 mls/hr TITRATE IV Last administered on 05/06/17 05:15; Admin Dose 0.46 MLS/HR; Start 04/30/17 at 18:00 Pantoprazole (Protonix Iv) 40 mg BID@06,18 IV Last administered on 05/12/17 05 :22; Admin Dose 40 MG; Start 05/02/17 at 18:00 Diphenhydramine HCl 25 mg 25 mg Q4H PRN IV ITCHING Last administered on 16:41; Admin Dose 25 MG; Start 05/02/17 at 08:30 Dobutamine HCl/ Dextrose 250 ml @ 4.755 mls/ hr TITRATE IV Last administered on 05/07/17 05:21; Admin Dose 3.804 MLS/HR; Start 05/03/17 at 09:30 Miscellaneous Information 1 ea NOTE XX ; Start 05/03/17 at 13:00 Glucose (Glutose) 15 gm Q15M PRN PO DECREASED GLUCOSE; Start 05/03/17 at 12:45 Glucose (Glutose) 22.5 gm Q15M PRN PO DECREASED GLUCOSE; Start 05/03/17 at 12: 45 Dextrose (D50w Syringe) 25 ml Q15M PRN IV DECREASED GLUCOSE Last administered on 05/03/17 12:48; Admin Dose 25 ML; Start 05/03/17 at 12:45 Dextrose (D50w Syringe) 50 ml Q15M PRN IV DECREASED GLUCOSE; Start 05/03/17 at 12:46 Glucagon (Glucagen) 1 mg Q15M PRN IM DECREASED GLUCOSE; Start 05/03/17 at 12:46 Glucose 15 gm 15 gm Q15M PRN BUCCAL DECREASED GLUCOSE; Start 05/03/17 at 12:46 Midazolam HCl 50 ml @ 1 mls/hr TITRATE IV Last administered on 05/12/17 09:36 ; Admin Dose 1 MLS/HR; Start 05/03/17 at 15:00 Dextrose/Sodium Chloride (D5-NS) 1,000 ml @ 20 mls/hr Q24H IV Last administered on 05/11/17 05:00; Admin Dose 20 MLS/HR; Start 05/03/17 at 16:00 Metoclopramide HCl (Reglan) 5 mg Q6 IV Last administered on 05/12/17 05:22; Admin Dose 5 MG; Start 05/04/17 at 12:00 Nystatin 5 ml 5 ml QID PO Last administered on 05/12/17 09:57; Admin Dose 5 ML ; Start 05/04/17 at 13:00 Fentanyl (Sublimaze) 100 ml @ 5 mls/hr TITRATE IV Last administered on 17:20; Admin Dose 5 MLS/HR; Start 05/06/17 at 08:30 Amiodarone HCl (Cordarone) 400 mg BID NGT Last administered on 05/12/17 09:57 ; Admin Dose 400 MG; Start 05/06/17 at 18:00 Eye Lubricant (Akwa Oint) 1 applic Q4 PRN BOTH EYES dryness Last administered on 05/08/17 08:59; Admin Dose 1 APPLIC; Start 05/07/17 at 13:00 [facility] This patient otto... PRN PRN XX WOUND CARE; Start 05/07/17 at 13:30 Carvedilol (Coreg) 3.125 mg BID PO Last administered on 05/11/17 21:05; Admin Dose 3.125 MG; Start 05/09/17 at 21:00 Lisinopril (Zestril) 2.5 mg DAILY PO ; Start 05/10/17 at 09:00 Morphine Sulfate (morphine) 1 mg Q4H PRN IV pain; Start 05/10/17 at 09:00 Methylprednisolone Sodium Succinate 10 mg 10 mg DAILY IV ; Start 05/13/17 at 09: 00; Stop 05/14/17 at 09:01 Meropenem/Sodium Chloride (Merrem 500mg/50 ml(Pmx)) 50 ml @ 100 mls/hr Q24H IVPB Last administered on 05/11/17 15:40; Admin Dose 100 MLS/HR; Start at 14:30 Scopolamine 1 patch 1 patch Q72H TRANSDERM Last administered on 05/11/17 17:55 ; Admin Dose 1 PATCH; Start 05/11/17 at 16:30 Sodium Chloride (NS) 1,000 ml @ 0 mls/hr Q0M PRN IV TO KEEP SBP ABOVE 90; Start 05/12/17 at 08:24 Miscellaneous Information (*Rx Drug Level Order Reminder*) VANCOMYCIN RANDOM ON ... ONCE ONCE XX ; Start 05/13/17 at 05:00; Stop 05/13/17 at 05:01 CHARLES EMMANUEL May 12, 2017 10:16
--- NOTE | 2017-05-12 10:18 | EN ---
Date/Time of Note Date/Time of Note DATE: 05/12/17 TIME: 10:16 Event Note Medicine Medicine Event Note Oral intubation note. Consent was obtained from the patient's family. Patient was paralyzed with 20 mg of etomidate intravenous push followed by 10 mg IV push rocuronium. Was intubated orally by 7.5 endotracheal tube without difficulty. Direct visualization of vocal cords was achieved and the tube traversed through the cords.. Chest x-ray has been ordered. Time 9:10 AM. CHARLES EMMANUEL May 12, 2017 10:18
[2017-05-12 10:40] LABS: AADO2 Arterial 113.1 mmHg (7.0-24.0); Allen Test ACCEPTAB; Arterial Base Excess 3.4 mmol/L (-3.0-3); Arterial COHb 0.4 % (0.0-3.0); Arterial Fraction of Oxyhgb 98.6 % (93.0-99.0); Arterial HCO3 26.9 mmol/L (22.0-26.0); Arterial MetHb 0.1 % (0.0-1.5); Arterial Total Hemglobin 9.6 g/dl (12.0-18.0); MODE VENT - AC
[2017-05-12 10:58] LABS: ABNORMAL IP MESSAGE 1; BASOPHILS % 0.1 % (0.0-2.0); HEMOGLOBIN 8.5 g/dl (14.0-18.0); LYMPHOCYTES # 0.3 10^3/ul (0.8-2.9); LYMPHOCYTES % 1.5 % (15.0-51.0); MEAN CORPUSCULAR HEMOGLOBIN 32.7 pg (29.0-33.0); MEAN CORPUSCULAR HGB CONC 32.7 g/dl (32.0-37.0); MEAN PLATELET VOLUME 12.3 fl (7.4-10.4); MONOCYTE # 0.9 10^3/ul (0.3-0.9); MONOCYTES % 5.1 % (0.0-11.0); NEUTROPHIL # 16.5 10^3/ul (1.6-7.5); NEUTROPHILS % 92.5 % (39.0-77.0); PLATELET COUNT 73 10^3/UL (140-415); POSITIVE DIFF @See below; RED CELL DISTRIBUTION WIDTH 16.9 % (11.5-14.5); WHITE BLOOD COUNT 17.9 10^3/ul (4.8-10.8)
[2017-05-12 11:23] LABS: ALBUMIN 2.8 g/dl (3.3-4.9); BILIRUBIN,INDIRECT 0.4 mg/dl (0-1.1); BILIRUBIN,TOTAL 0.4 mg/dl (0.2-1.3); CALCIUM 7.6 mg/dl (8.4-10.2); CREATININE 5.13 mg/dl (0.61-1.24); POTASSIUM 4.3 mmol/L (3.5-5.1); TOTAL PROTEIN 5.6 g/dl (6.1-8.1)
--- NOTE | 2017-05-12 11:47 | RADRPT ---
PROCEDURE: XR Chest. CLINICAL INDICATION: Respiratory failure TECHNIQUE: An AP view of the chest was obtained. COMPARISON: Chest x-ray dated 05/11/2017 FINDINGS: The endotracheal tube tip is approximately 3.6 cm above the jerry. The tip of the enteric tube ex tends below the left diaphragm. There is prominence of the interstitial and central pulmonary vascular markings with left basilar i nterstitial opacities. No pleural effusion or pneumothorax is seen. The cardiomediastinal silhoue tte is mildly enlarged . Calcifications are seen within the aortic arch. There are post cardiac jackson rgery changes with sternotomy wires. The osseous structures demonstrate senescent changes. IMPRESSION: 1. Findings suggestive of pulmonary vascular congestion, improved when compared to the prior exami nation. 2. Left basilar atelectasis versus pneumonia, also improved. 3. Mild cardiomegaly and aortic atherosclerosis. 4. Tubes and lines, as described above. RPTAT: HH .Veronica Boyle MD, MD Date Time Electronically viewed and signed by .Veronica Boyle MD, on 05/12/2017 11:46 .G/
--- NOTE | 2017-05-12 11:50 | CONS ---
Date/Time of Note Date/Time of Note DATE: 05/12/17 TIME: 11:48 Assessment/Plan Assessment/Plan Additional Assessment/Plan 1.Acute AR-now downtrending cardiac enzymes without signs of ongoing myocardial necrosis - if stable, plan for [facility] - not stable for stress test now with respiratory secretions. Amount of secretions increased - now intubated. [facility] on HOLD now. 2.Shock-improved off of all inotropes and pressors - off all pressors now, but will follow closely. 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 Con't tele now. 4.resp failure s/p intubation - extub now 5.renal failure-on HD - today - will follow 6. Leukocytosis 7. Thrombocytopenia-slowly improving 8. Shock liver-improving 9. CHF-systolic acute on chronic likely with EF 20% by echo this admit Consultation Date/Type/Reason Admit Date/Time Apr 29, 2017 at 19:31 Type of Consultation: Pulmonary/critical care Referring Provider: YENNY WINSTON MD 24 HR Interval Summary Free Text/Dictation mount of secretions increased - now intubated. [facility] on HOLD now. ROS: + fever, no chills, no nausea, no vomiting, no diarrhea/constipation No recent weight changes No chest pain, no PND, no orthopnea + secretion No dizziness, blurred vision No thirst, no heat or cold intolerance Exam/Review of Systems Vital Signs Vitals Vital Signs Date Time Temp Pulse Resp B/P Pulse Ox O2 Delivery O2 Flow Rate FiO2 05/12/17 10:00 69 16 157/45 100 Mechanical Ventilator 05/12/17 09:30 60 05/12/17 09:00 4.0 05/12/17 08:00 97.7 Intake and Output 05/11/17 05/11/17 05/12/17 15:00 23:00 07:00 Intake Total 740 ml 410 ml 290 ml Output Total 3500 ml Balance -2760 ml 410 ml 290 ml Exam General: WN/WD/NAD, AOx 0 HEENT: Unicetric/atraumatic/EOMI (does not follow commands) NECK: JVD elevated, no thyromegaly - intub Lymph: no lymphadenopathy HEART: regular with no S3, II/ systolic murmur at apex LUNGS: Coarse sounds ABD: soft, NT, ND, +BS : Intact -= HD now Neuro: non focal SKIN: chronic changes EXT: trace edema Results Result Diagram: 05/12/17 1034 05/12/17 1034 Results 24 hrs Laboratory Tests Test 05/12/17 06:08 05/12/17 10:30 05/12/17 10:34 Blood Gas Specimen Source Blood arterial Blood arterial Arterial Blood Date Drawn 05/12/2017 6:20:17 AM 05/12/2017 10:20:04 AM Arterial Blood pH (Temp corrected) 7.325 L 7.484 H Arterial Blood pCO2 (Temp correct) 56.2 H 36.6 Arterial Blood pO2 (Temp corrected) 108.2 H 202.2 H Arterial Blood HCO3 28.6 H 26.9 H Arterial Blood Base Excess 1.9 3.4 H Arterial Blood Oxygen Saturation 97.0 99.1 Hunter Test ACCEPTAB ACCEPTAB Arterial Blood Gas Puncture Site Left Radial Right Radial Arterial Blood Carboxyhemoglobin 0.4 0.4 Arterial Blood Methemoglobin 0.3 0.1 Blood Gas A-a O2 Differential 148.7 H 113.1 H Oxyhemoglobin Percent 96.3 98.6 Total Hemoglobin 10.1 L 9.6 L Blood Gas Temperature 37.0 37.0 Blood Gas Modality MASK - SIMPLE VENT - AC FiO2 45.0 50.0 Blood Gas Notified Whom [facility] Blood Gas Notified Time 05/12/2017 6:28:16 AM 05/12/2017 10:40:43 AM Blood Gas Respiration Rate 16.0 Blood Gas Actual Respiration Rate 16 Blood Gas Tidal Volume 500.0 Blood Gas Low PEEP Setting 5.0 White Blood Count 17.9 #H Red Blood Count 2.60 L Hemoglobin 8.5 L Hematocrit 26.0 L Mean Corpuscular Volume 100.0 Mean Corpuscular Hemoglobin 32.7 Mean Corpuscular Hemoglobin Concent 32.7 Red Cell Distribution Width 16.9 H Platelet Count 73 #L Mean Platelet Volume 12.3 H Neutrophils % 92.5 H Lymphocytes % 1.5 L Monocytes % 5.1 Eosinophils % 0.0 Basophils % 0.1 Nucleated Red Blood Cells % 0.0 Neutrophils # 16.5 H Lymphocytes # 0.3 L Monocytes # 0.9 Eosinophils # 0.0 Basophils # 0.0 Nucleated Red Blood Cells # 0.0 Sodium Level 146 H Potassium Level 4.3 Chloride Level 107 Carbon Dioxide Level 27 Anion Gap 16 Blood Urea Nitrogen 63 H Creatinine 5.13 H Glucose Level 95 Calcium Level 7.6 L Total Bilirubin 0.4 Direct Bilirubin 0.00 # Indirect Bilirubin 0.4 Aspartate Amino Transf (AST/SGOT) 31 Alanine Aminotransferase (ALT/SGPT) 135 H Alkaline Phosphatase 128 H Total Protein 5.6 L Albumin 2.8 L Globulin 2.80 Albumin/Globulin Ratio 1.00 Medications Medications Current Medications Folic Acid (Folic Acid) 1 mg DAILY PO Last administered on 05/12/17 09:57; Admin Dose 1 MG; Start 04/30/17 at 09:00 Ondansetron HCl (Zofran Inj) 4 mg Q6H PRN IV NAUSEA AND/OR VOMITING Last administered on 05/03/17 23:24; Admin Dose 4 MG; Start 04/29/17 at 20:00 Nitroglycerin (Nitroglycerin (Sl Tab) 0.4 Mg) 1 tab Q5M PRN SL CHEST PAIN; Start 04/29/17 at 20:00 Acetaminophen (Tylenol Liquid) 650 mg Q6H PRN PO PAIN LEVEL 1-3 OR FEVER; Start 04/29/17 at 20:00 Acetaminophen (Tylenol Tab) 650 mg Q6H PRN PO PAIN LEVEL 1-3 OR FEVER; Start at 20:00 Acetaminophen/ Hydrocodone Bitart ([place] (5/325)) 1 tab Q6H PRN PO PAIN LEVEL 4 -6; Start 04/29/17 at 20:00 Zolpidem Tartrate (Ambien) 5 mg QHS PRN PO INSOMNIA; Start 04/29/17 at 20:00 Docusate Sodium (Colace) 100 mg Q12H PRN PO CONSTIPATION; Start 04/29/17 at 20: 00 Bisacodyl (Dulcolax) 5 mg DAILY PRN PO CONSTIPATION; Start 04/29/17 at 20:00 Aspirin 325 mg 325 mg DAILY PO Last administered on 05/12/17 09:57; Admin Dose 325 MG; Start 04/30/17 at 09:00 Vasopressin 60 unit/Dextrose 60 ml @ 1.2 mls/hr Q12H IV Last administered on 01:07; Admin Dose 2.4 MLS/HR; Start 04/30/17 at 13:00 Phenylephrine HCl 80 mg/Dextrose 250 ml @ 18.75 mls/ hr TITRATE IV Last administered on 05/04/17 09:57; Admin Dose 31.87 MLS/HR; Start 04/30/17 at 18: 00 Norepinephrine/ Dextrose (Levophed/D5W) 250 ml @ 0.46 mls/hr TITRATE IV Last administered on 05/06/17 05:15; Admin Dose 0.46 MLS/HR; Start 04/30/17 at 18:00 Pantoprazole (Protonix Iv) 40 mg BID@06,18 IV Last administered on 05/12/17 05 :22; Admin Dose 40 MG; Start 05/02/17 at 18:00 Diphenhydramine HCl 25 mg 25 mg Q4H PRN IV ITCHING Last administered on 16:41; Admin Dose 25 MG; Start 05/02/17 at 08:30 Dobutamine HCl/ Dextrose 250 ml @ 4.755 mls/ hr TITRATE IV Last administered on 05/07/17 05:21; Admin Dose 3.804 MLS/HR; Start 05/03/17 at 09:30 Miscellaneous Information 1 ea NOTE XX ; Start 05/03/17 at 13:00 Glucose (Glutose) 15 gm Q15M PRN PO DECREASED GLUCOSE; Start 05/03/17 at 12:45 Glucose (Glutose) 22.5 gm Q15M PRN PO DECREASED GLUCOSE; Start 05/03/17 at 12: 45 Dextrose (D50w Syringe) 25 ml Q15M PRN IV DECREASED GLUCOSE Last administered on 05/03/17 12:48; Admin Dose 25 ML; Start 05/03/17 at 12:45 Dextrose (D50w Syringe) 50 ml Q15M PRN IV DECREASED GLUCOSE; Start 05/03/17 at 12:46 Glucagon (Glucagen) 1 mg Q15M PRN IM DECREASED GLUCOSE; Start 05/03/17 at 12:46 Glucose 15 gm 15 gm Q15M PRN BUCCAL DECREASED GLUCOSE; Start 05/03/17 at 12:46 Midazolam HCl 50 ml @ 1 mls/hr TITRATE IV Last administered on 05/12/17 09:36 ; Admin Dose 1 MLS/HR; Start 05/03/17 at 15:00 Dextrose/Sodium Chloride (D5-NS) 1,000 ml @ 20 mls/hr Q24H IV Last administered on 05/11/17 05:00; Admin Dose 20 MLS/HR; Start 05/03/17 at 16:00 Metoclopramide HCl (Reglan) 5 mg Q6 IV Last administered on 05/12/17 05:22; Admin Dose 5 MG; Start 05/04/17 at 12:00 Nystatin 5 ml 5 ml QID PO Last administered on 05/12/17 09:57; Admin Dose 5 ML ; Start 05/04/17 at 13:00 Fentanyl (Sublimaze) 100 ml @ 5 mls/hr TITRATE IV Last administered on 17:20; Admin Dose 5 MLS/HR; Start 05/06/17 at 08:30 Amiodarone HCl (Cordarone) 400 mg BID NGT Last administered on 05/12/17 09:57 ; Admin Dose 400 MG; Start 05/06/17 at 18:00 Eye Lubricant (Akwa Oint) 1 applic Q4 PRN BOTH EYES dryness Last administered on 05/08/17 08:59; Admin Dose 1 APPLIC; Start 05/07/17 at 13:00 Miscellaneous Information ([facility]ending [facility] For [facility] Care) This patient otto... PRN PRN XX WOUND CARE; Start 05/07/17 at 13:30 Carvedilol (Coreg) 3.125 mg BID PO Last administered on 05/11/17 21:05; Admin Dose 3.125 MG; Start 05/09/17 at 21:00 Lisinopril (Zestril) 2.5 mg DAILY PO ; Start 05/10/17 at 09:00 Morphine Sulfate (morphine) 1 mg Q4H PRN IV pain; Start 05/10/17 at 09:00 Methylprednisolone Sodium Succinate 10 mg 10 mg DAILY IV ; Start 05/13/17 at 09: 00; Stop 05/14/17 at 09:01 Meropenem/Sodium Chloride (Merrem 500mg/50 ml(Pmx)) 50 ml @ 100 mls/hr Q24H IVPB Last administered on 05/11/17 15:40; Admin Dose 100 MLS/HR; Start at 14:30 Scopolamine 1 patch 1 patch Q72H TRANSDERM Last administered on 05/11/17t 17:55 ; Admin Dose 1 PATCH; Start 05/11/17 at 16:30 Sodium Chloride (NS) 1,000 ml @ 0 mls/hr Q0M PRN IV TO KEEP SBP ABOVE 90; Start 05/12/17 at 08:24 Miscellaneous Information (*Rx Drug Level Order Reminder*) VANCOMYCIN RANDOM ON ... ONCE ONCE XX ; Start 05/13/17 at 05:00; Stop 05/13/17 at 05:01 CANDACE CARTWRIGHT MD May 12, 2017 11:50
[2017-05-12] MEDS ORDERED: PHENYLephrine 20MG IN 250 ML 250 ML ONE (12:24)
--- NOTE | 2017-05-12 12:32 | PN ---
DATE: 05/12/2017 SUBJECTIVE DATA: The patient was intubated. He is sedated, lying comfortably in bed. Afebrile. OBJECTIVE DATA: VITAL SIGNS: Temperature 97.7, pulse 76, respirations 20, blood pressure 149/99, saturation 100 percent on 60 FIO2. LABORATORY AND DIAGNOSTIC DATA: WBC today is 17.9, H and H 8.5 and 26, platelets 73, neutrophils 92.5. INDWELLINGS: Left upper extremity AV fistula, endotracheal tube, NG tube, right femoral triple lumen catheter. ANTIMICROBIALS: 1. Vancomycin. 2. Meropenem. PHYSICAL EXAMINATION: GENERAL: This is a chronically ill-appearing, elderly man, in no distress. HEENT: Head atraumatic, normocephalic. Sclerae anicteric. Buccal mucosa dry. NECK: Supple. CHEST: Rise symmetrical. Breath sounds diminished at the bases. HEART: S1, S2. ABDOMEN: Soft, bowel sounds hypoactive. EXTREMITIES: Without cyanosis. ASSESSMENT: 1. Acute respiratory failure, possibly recurrent aspiration secondary to secretion retention, patient was re-intubated. 2. Pneumonia. 3. Acute myocardial infarction (IN). 4. Status post streptococcal bacteremia. 5. History of coronary artery bypass grafting. 6. End-stage renal disease, hemodialysis dependent. PLAN: The patient is hemodynamically stable, covered with broad- spectrum antibiotics. He is being followed by multiple consultants. Continue present care. Dictated By: Chelly Hudson NP /valarie/annalise /Document#: [id number]
[2017-05-12] MEDS: VASOPRESSIN 60 UNIT in DEXTROSE 5% 57 ML IV SCH (13:00)
[2017-05-12] MEDS: MEROPENEM 500MG/50 ML (PMX) 50 ML IVPB SCH (14:10)
[2017-05-12] MEDS: DEXTROSE 5%-0.9% NACL 1,000 ML IV SCH (16:00)
[2017-05-12] MEDS: NORepinephrine 32 MG in DEXTROSE 5% 218 ML IV SCH (21:18)
--- NOTE | 2017-05-12 22:27 | CONS ---
Date/Time of Note Date/Time of Note DATE: 05/12/17 TIME: 22:23 Assessment/Plan Assessment/Plan Chief Complaint/Hosp Course #Thrombocytopenia -now improved and > 50K. pt has not needed transfusion since 05/06 -this is secondary to shock liver as evidenced by the markedly elevated AST/ALT (>7000/5000). Liver enzymes have greatly improved -no evidence of hemolytic anemia -will continue to check daily DIC panel and transfuse 1 unit cryo if fibrinogen is < 150. fibrinogen is currently > 300 -given platelet count is > 50K, pt is now on ASA 81 -would recommend platelet transfusion prior to left heart cath to minimize bleeding risk. can also run platelets during the procedure #Anemia -2/2 shock, sepsis and questionable bleed -Hg is currently stable #Cardiogenic shock with shock liver -management per cardiology -patient currently on ionotropic support -pt will need cath once his platelets recover #ESRD wit acidosis -continue HD as tolerated. currently blood pressure is very labile #Respiratory failure -patient was re-intubated today -management per pulmonary Problems: (1) ESRD (end stage renal disease) on dialysis Status: Chronic Consultation Date/Type/Reason Admit Date/Time Apr 29, 2017 at 19:31 Initial Consult Date 05/02/17 Type of Consultation: Hematology Reason for Consultation thrombocytopenia/ anemia Referring Provider: YENNY WINSTON MD 24 HR Interval Summary Free Text/Dictation pt was reintubated this morning. no bleeding per nurse Exam/Review of Systems Vital Signs Vitals Vital Signs Date Time Temp Pulse Resp B/P Pulse Ox O2 Delivery O2 Flow Rate FiO2 05/12/17 22:21 60 05/12/17 21:45 62 18 88/62 100 Mechanical Ventilator 05/12/17 20:00 98.6 05/12/17 09:00 4.0 Intake and Output 05/11/17 05/11/17 05/12/17 15:00 23:00 07:00 Intake Total 740 ml 410 ml 290 ml Output Total 3500 ml Balance -2760 ml 410 ml 290 ml Exam Constitutional: distress, non-verbal ENMT: intubated Neck: non-tender, supple Respiratory: clear to auscultation Cardiovascular: regular rate and rhythm Gastrointestinal: soft Musculoskeletal: nl extremities to inspection Results Result Diagram: 05/12/17 1034 05/12/17 1034 Results 24 hrs Laboratory Tests Test 05/12/17 06:08 05/12/17 10:30 05/12/17 10:34 Blood Gas Specimen Source Blood arterial Blood arterial Arterial Blood Date Drawn 05/12/2017 6:20:17 AM 05/12/2017 10:20:04 AM Arterial Blood pH (Temp corrected) 7.325 L 7.484 H Arterial Blood pCO2 (Temp correct) 56.2 H 36.6 Arterial Blood pO2 (Temp corrected) 108.2 H 202.2 H Arterial Blood HCO3 28.6 H 26.9 H Arterial Blood Base Excess 1.9 3.4 H Arterial Blood Oxygen Saturation 97.0 99.1 Hunter Test ACCEPTAB ACCEPTAB Arterial Blood Gas Puncture Site Left Radial Right Radial Arterial Blood Carboxyhemoglobin 0.4 0.4 Arterial Blood Methemoglobin 0.3 0.1 Blood Gas A-a O2 Differential 148.7 H 113.1 H Oxyhemoglobin Percent 96.3 98.6 Total Hemoglobin 10.1 L 9.6 L Blood Gas Temperature 37.0 37.0 Blood Gas Modality MASK - SIMPLE VENT - AC FiO2 45.0 50.0 Blood Gas Notified Whom [facility]OM[facility] Blood Gas Notified Time 05/12/2017 6:28:16 AM 05/12/2017 10:40:43 AM Blood Gas Respiration Rate 16.0 Blood Gas Actual Respiration Rate 16 Blood Gas Tidal Volume 500.0 Blood Gas Low PEEP Setting 5.0 White Blood Count 17.9 #H Red Blood Count 2.60 L Hemoglobin 8.5 L Hematocrit 26.0 L Mean Corpuscular Volume 100.0 Mean Corpuscular Hemoglobin 32.7 Mean Corpuscular Hemoglobin Concent 32.7 Red Cell Distribution Width 16.9 H Platelet Count 73 #L Mean Platelet Volume 12.3 H Neutrophils % 92.5 H Lymphocytes % 1.5 L Monocytes % 5.1 Eosinophils % 0.0 Basophils % 0.1 Nucleated Red Blood Cells % 0.0 Neutrophils # 16.5 H Lymphocytes # 0.3 L Monocytes # 0.9 Eosinophils # 0.0 Basophils # 0.0 Nucleated Red Blood Cells # 0.0 Sodium Level 146 H Potassium Level 4.3 Chloride Level 107 Carbon Dioxide Level 27 Anion Gap 16 Blood Urea Nitrogen 63 H Creatinine 5.13 H Glucose Level 95 Calcium Level 7.6 L Total Bilirubin 0.4 Direct Bilirubin 0.00 # Indirect Bilirubin 0.4 Aspartate Amino Transf (AST/SGOT) 31 Alanine Aminotransferase (ALT/SGPT) 135 H Alkaline Phosphatase 128 H Total Protein 5.6 L Albumin 2.8 L Globulin 2.80 Albumin/Globulin Ratio 1.00 Medications Medications Current Medications Folic Acid (Folic Acid) 1 mg DAILY PO Last administered on 05/12/17 09:57; Admin Dose 1 MG; Start 04/30/17 at 09:00 Ondansetron HCl (Zofran Inj) 4 mg Q6H PRN IV NAUSEA AND/OR VOMITING Last administered on 05/03/17 23:24; Admin Dose 4 MG; Start 04/29/17 at 20:00 Nitroglycerin (Nitroglycerin (Sl Tab) 0.4 Mg) 1 tab Q5M PRN SL CHEST PAIN; Start 04/29/17 at 20:00 Acetaminophen (Tylenol Liquid) 650 mg Q6H PRN PO PAIN LEVEL 1-3 OR FEVER; Start 04/29/17 at 20:00 Acetaminophen (Tylenol Tab) 650 mg Q6H PRN PO PAIN LEVEL 1-3 OR FEVER; Start at 20:00 Acetaminophen/ Hydrocodone Bitart ([place] (5/325)) 1 tab Q6H PRN PO PAIN LEVEL 4 -6; Start 04/29/17 at 20:00 Zolpidem Tartrate (Ambien) 5 mg QHS PRN PO INSOMNIA; Start 04/29/17 at 20:00 Docusate Sodium (Colace) 100 mg Q12H PRN PO CONSTIPATION; Start 04/29/17 at 20: 00 Bisacodyl (Dulcolax) 5 mg DAILY PRN PO CONSTIPATION; Start 04/29/17 at 20:00 Aspirin 325 mg 325 mg DAILY PO Last administered on 05/12/17 09:57; Admin Dose 325 MG; Start 04/30/17 at 09:00 Vasopressin 60 unit/Dextrose 60 ml @ 1.2 mls/hr Q12H IV Last administered on 01:07; Admin Dose 2.4 MLS/HR; Start 04/30/17 at 13:00 Phenylephrine HCl 80 mg/Dextrose 250 ml @ 18.75 mls/ hr TITRATE IV Last administered on 05/04/17 09:57; Admin Dose 31.87 MLS/HR; Start 04/30/17 at 18: 00 Norepinephrine/ Dextrose (Levophed/D5W) 250 ml @ 0.46 mls/hr TITRATE IV Last administered on 05/12/17 21:18; Admin Dose 4.68 MLS/HR; Start 04/30/17 at 18:00 Pantoprazole (Protonix Iv) 40 mg BID@06,18 IV Last administered on 05/12/17 17 :27; Admin Dose 40 MG; Start 05/02/17 at 18:00 Diphenhydramine HCl 25 mg 25 mg Q4H PRN IV ITCHING Last administered on 16:41; Admin Dose 25 MG; Start 05/02/17 at 08:30 Dobutamine HCl/ Dextrose 250 ml @ 4.755 mls/ hr TITRATE IV Last administered on 05/07/17 05:21; Admin Dose 3.804 MLS/HR; Start 05/03/17 at 09:30 Miscellaneous Information 1 ea NOTE XX ; Start 05/03/17 at 13:00 Glucose (Glutose) 15 gm Q15M PRN PO DECREASED GLUCOSE; Start 05/03/17 at 12:45 Glucose (Glutose) 22.5 gm Q15M PRN PO DECREASED GLUCOSE; Start 05/03/17 at 12: 45 Dextrose (D50w Syringe) 25 ml Q15M PRN IV DECREASED GLUCOSE Last administered on 05/03/17 12:48; Admin Dose 25 ML; Start 05/03/17 at 12:45 Dextrose (D50w Syringe) 50 ml Q15M PRN IV DECREASED GLUCOSE; Start 05/03/17 at 12:46 Glucagon (Glucagen) 1 mg Q15M PRN IM DECREASED GLUCOSE; Start 05/03/17 at 12:46 Glucose 15 gm 15 gm Q15M PRN BUCCAL DECREASED GLUCOSE; Start 05/03/17 at 12:46 Midazolam HCl 50 ml @ 1 mls/hr TITRATE IV Last administered on 05/12/17 09:36 ; Admin Dose 1 MLS/HR; Start 05/03/17 at 15:00 Dextrose/Sodium Chloride (D5-NS) 1,000 ml @ 20 mls/hr Q24H IV Last administered on 05/12/17 16:00; Admin Dose 20 MLS/HR; Start 05/03/17 at 16:00 Metoclopramide HCl (Reglan) 5 mg Q6 IV Last administered on 05/12/17 17:27; Admin Dose 5 MG; Start 05/04/17 at 12:00 Nystatin 5 ml 5 ml QID PO Last administered on 05/12/17 21:09; Admin Dose 5 ML ; Start 05/04/17 at 13:00 Fentanyl (Sublimaze) 100 ml @ 5 mls/hr TITRATE IV Last administered on 17:20; Admin Dose 5 MLS/HR; Start 05/06/17 at 08:30 Amiodarone HCl (Cordarone) 400 mg BID NGT Last administered on 05/12/17 21:10 ; Admin Dose 400 MG; Start 05/06/17 at 18:00 Eye Lubricant (Akwa Oint) 1 applic Q4 PRN BOTH EYES dryness Last administered on 05/08/17 08:59; Admin Dose 1 APPLIC; Start 05/07/17 at 13:00 Miscellaneous Information (Pending [facility] Order For Wound Care) This patient otto... PRN PRN XX WOUND CARE; Start 05/07/17 at 13:30 Carvedilol (Coreg) 3.125 mg BID PO Last administered on 05/11/17 21:05; Admin Dose 3.125 MG; Start 05/09/17 at 21:00 Lisinopril (Zestril) 2.5 mg DAILY PO ; Start 05/10/17 at 09:00 Morphine Sulfate (morphine) 1 mg Q4H PRN IV pain; Start 05/10/17 at 09:00 Methylprednisolone Sodium Succinate 10 mg 10 mg DAILY IV ; Start 05/13/17 at 09: 00; Stop 05/14/17 at 09:01 Meropenem/Sodium Chloride (Merrem 500mg/50 ml(Pmx)) 50 ml @ 100 mls/hr Q24H IVPB Last administered on 05/12/17 14:10; Admin Dose 100 MLS/HR; Start at 14:30 Scopolamine 1 patch 1 patch Q72H TRANSDERM Last administered on 05/11/17 17:55 ; Admin Dose 1 PATCH; Start 05/11/17 at 16:30 Sodium Chloride (NS) 1,000 ml @ 0 mls/hr Q0M PRN IV TO KEEP SBP ABOVE 90; Start 05/12/17 at 08:24 Miscellaneous Information (*Rx Drug Level Order Reminder*) VANCOMYCIN RANDOM ON .. ONCE ONCE XX ; Start 05/13/17 at 05:00; Stop 05/13/17 at 05:01 JEFF HANSON M.D. May 12, 2017 22:27
[2017-05-13] VITALS (95 sets, daily range): BP systolic 84–137; BP diastolic 27–87; PULSE 54–80; RESP 11–25
[2017-05-13] MEDS: VASOPRESSIN 60 UNIT in DEXTROSE 5% 57 ML IV SCH ×2 (00:15→13:00)
[2017-05-13] MEDS: METOCLOPRAMIDE 10 MG INJ IV SCH ×5 (00:17→23:58)
[2017-05-13] MEDS: MIDAZOLAM (DRIP) 50 mg/50 mL 50 ML IV SCH ×2 (00:17→23:21)
[2017-05-13] MEDS: IPRATROPIUM (HFA) 12.9 GM INHALER INH SCH ×4 (01:23→19:41)
[2017-05-13] MEDS: ALBUTEROL 18 GM INHALER INH SCH ×4 (01:24→19:41)
[2017-05-13] MEDS: PANTOPRAZOLE 40 MG INJ IV SCH ×2 (05:24→17:13)
[2017-05-13 06:14] LABS: ABNORMAL IP MESSAGE 1; BASOPHILS % 0.1 % (0.0-2.0); EOSINOPHILS # 0.1 10^3/ul (0.0-0.5); EOSINOPHILS % 0.4 % (0.0-7.0); HEMATOCRIT 25.2 % (42.0-52.0); HEMOGLOBIN 8.3 g/dl (14.0-18.0); LYMPHOCYTES # 0.6 10^3/ul (0.8-2.9); LYMPHOCYTES % 3.1 % (15.0-51.0); MEAN CORPUSCULAR HEMOGLOBIN 33.5 pg (29.0-33.0); MEAN CORPUSCULAR HGB CONC 32.9 g/dl (32.0-37.0); MEAN CORPUSCULAR VOLUME 101.6 fl (82.0-101.0); MEAN PLATELET VOLUME 12.2 fl (7.4-10.4); MONOCYTES % 5.6 % (0.0-11.0); NEUTROPHIL # 16.6 10^3/ul (1.6-7.5); NEUTROPHILS % 89.7 % (39.0-77.0); PLATELET COUNT 71 10^3/UL (140-415); POSITIVE DIFF @See below; RED BLOOD COUNT 2.48 10^6/ul (4.70-6.10); RED CELL DISTRIBUTION WIDTH 16.6 % (11.5-14.5); WHITE BLOOD COUNT 18.5 10^3/ul (4.8-10.8)
[2017-05-13 06:36] LABS: MAGNESIUM 2.2 mg/dl (1.7-2.5); PHOSPHORUS 5.1 mg/dl (2.5-4.9)
[2017-05-13 07:05] LABS: ALBUMIN 2.4 g/dl (3.3-4.9); ALBUMIN/GLOBULIN RATIO 0.77; BILIRUBIN,INDIRECT 0.3 mg/dl (0-1.1); BILIRUBIN,TOTAL 0.3 mg/dl (0.2-1.3); CALCIUM 7.5 mg/dl (8.4-10.2); CREATININE 5.94 mg/dl (0.61-1.24); TOTAL PROTEIN 5.5 g/dl (6.1-8.1)
[2017-05-13] MEDS ORDERED: SOD CHLORIDE 0.9% 250 ML IV* ONE (08:25)
--- NOTE | 2017-05-13 08:43 | PN ---
Date/Time of Note Date/Time of Note DATE: 05/13/17 TIME: 08:36 Assessment/Plan VTE Prophylaxis VTE Prophylaxis Intervention: contraindicated VTE Contraindication Reason: anticoagulation not tolerated Lines/Catheters IV Catheter Type (from Nrsg): Central Line Central line still needed: Yes Urinary Cath still in place: No Assessment/Plan Chief Complaint/Hosp Course 87 y/o with # s/p V Tachy/V Fib likely secondary to ischemia on Amiodarone and s/p Digoxin, now sinus # Shock likely Cardiogenic with AMI with Tropinins 150 on 3 pressors> downtrending Troponin to 40>15>7>5 likely combination of sepsis with Strep bactermia however repeat bld cx negative. Sputum cx+nelly. Currently off pressors. 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, now more edematous s/p daily HD # Acute on chronic heart failure with EF 30% # Shock liver improving LFTs with improving ischemia # Lactic acidosis improved # Respiratory failure on Vent s/p extubation , reintubated yesterday # Thrombocytopenia s/p 1 unit platelets likley due to shock liver now improved # Anemia S/P 2 units PRBC # Right arm DVT but could not be on anticoagulation due to thrombocytopenia Recs - LHC per Dr Montgomery today - Keep 2 units of platelet on hold - Spoke to Dr May, pt can be Anticoagulation as long as Plt count>50k - Possible HD today after LHC - Vent management per Pulmonary - Requested Dr Montgomery to replace Rt femoral cathether - Frequent deep suctioning, HOB elevated, scopalamine patch - c/w ASA 325 mg/ Coreg/ Lisnopril, titration per cards thru NG tube - c/w Vancomycin and Meropenam per I.D labs pending - c/w Amiodarone 400 bid - c/w hydrocortisone 10 mg - Labs am Problems: Subjective 24 Hr Interval Summary Free Text/Dictation Pt got reintubated again for impending respiratory failure Started on low dose Levophed yesterday s/p HD yesterday Spoke to family about cath today Exam/Review of Systems Vital Signs Vitals Vital Signs Date Time Temp Pulse Resp B/P Pulse Ox O2 Delivery O2 Flow Rate FiO2 05/13/17 07:00 60 17 98/44 99 05/13/17 05:43 30 05/13/17 04:30 98.6 05/13/17 00:00 Mechanical Ventilator 9/28/17 09:00 4.0 Intake and Output 05/12/17 05/12/17 05/13/17 15:00 23:00 07:00 Intake Total 508 ml 142 ml 220 ml Output Total 2800 ml Balance -2292 ml 142 ml 220 ml Exam General: opens eyes, intubated NECK: JVD elevated, no thyromegaly Lymph: no lymphadenopathy HEART: regular with no S3, BRANDI LUNGS:Coarse breath sounds b/l ABD: soft, NT, ND, +BS Neuro: non focal SKIN: chronic changes EXT: Edema arms 2+ more on rt arm>left Results Result Diagram: 05/13/17 0530 05/13/17 0530 Results 24 hrs Laboratory Tests Test 05/12/17 10:30 05/12/17 10:34 05/13/17 05:30 Blood Gas Specimen Source Blood arterial Arterial Blood Date Drawn 05/12/2017 10:20:04 AM Arterial Blood pH (Temp corrected) 7.484 H Arterial Blood pCO2 (Temp correct) 36.6 Arterial Blood pO2 (Temp corrected) 202.2 H Arterial Blood HCO3 26.9 H Arterial Blood Base Excess 3.4 H Arterial Blood Oxygen Saturation 99.1 Hunter Test ACCEPTAB Arterial Blood Gas Puncture Site Right Radial Arterial Blood Carboxyhemoglobin 0.4 Arterial Blood Methemoglobin 0.1 Blood Gas A-a O2 Differential 113.1 H Oxyhemoglobin Percent 98.6 Total Hemoglobin 9.6 L Blood Gas Temperature 37.0 Blood Gas Respiration Rate 16.0 Blood Gas Actual Respiration Rate 16 Blood Gas Modality VENT - AC FiO2 50.0 Blood Gas Tidal Volume 500.0 Blood Gas Low PEEP Setting 5.0 Blood Gas Notified Whom JLD Blood Gas Notified Time 05/12/2017 10:40:43 AM White Blood Count 17.9 #H 18.5 H Red Blood Count 2.60 L 2.48 L Hemoglobin 8.5 L 8.3 L Hematocrit 26.0 L 25.2 L Mean Corpuscular Volume 100.0 101.6 H Mean Corpuscular Hemoglobin 32.7 33.5 H Mean Corpuscular Hemoglobin Concent 32.7 32.9 Red Cell Distribution Width 16.9 H 16.6 H Platelet Count 73 #L 71 L Mean Platelet Volume 12.3 H 12.2 H Neutrophils % 92.5 H 89.7 H Lymphocytes % 1.5 L 3.1 L Monocytes % 5.1 5.6 Eosinophils % 0.0 0.4 Basophils % 0.1 0.1 Nucleated Red Blood Cells % 0.0 0.0 Neutrophils # 16.5 H 16.6 H Lymphocytes # 0.3 L 0.6 L Monocytes # 0.9 1.0 H Eosinophils # 0.0 0.1 Basophils # 0.0 0.0 Nucleated Red Blood Cells # 0.0 0.0 Sodium Level 146 H 146 H Potassium Level 4.3 4.0 Chloride Level 107 109 Carbon Dioxide Level 27 27 Anion Gap 16 14 Blood Urea Nitrogen 63 H 76 H Creatinine 5.13 H 5.94 H Glucose Level 95 100 Calcium Level 7.6 L 7.5 L Total Bilirubin 0.4 0.3 Direct Bilirubin 0.00 # 0.00 Indirect Bilirubin 0.4 0.3 Aspartate Amino Transf (AST/SGOT) 31 30 Alanine Aminotransferase (ALT/SGPT) 135 H 119 H Alkaline Phosphatase 128 H 118 Total Protein 5.6 L 5.5 L Albumin 2.8 L 2.4 L Globulin 2.80 3.10 Albumin/Globulin Ratio 1.00 0.77 Phosphorus Level 5.1 H Magnesium Level 2.2 Troponin I 3.930 *H Random Vancomycin Level 12.0 Medications Medications Current Medications Folic Acid (Folic Acid) 1 mg DAILY PO Last administered on 05/12/17 09:57; Admin Dose 1 MG; Start 04/30/17 at 09:00 Ondansetron HCl (Zofran Inj) 4 mg Q6H PRN IV NAUSEA AND/OR VOMITING Last administered on 05/03/17 23:24; Admin Dose 4 MG; Start 04/29/17 at 20:00 Nitroglycerin (Nitroglycerin (Sl Tab) 0.4 Mg) 1 tab Q5M PRN SL CHEST PAIN; Start 04/29/17 at 20:00 Acetaminophen (Tylenol Liquid) 650 mg Q6H PRN PO PAIN LEVEL 1-3 OR FEVER; Start 04/29/17 at 20:00 Acetaminophen (Tylenol Tab) 650 mg Q6H PRN PO PAIN LEVEL 1-3 OR FEVER; Start at 20:00 Acetaminophen/ Hydrocodone Bitart ([place] (5/325)) 1 tab Q6H PRN PO PAIN LEVEL 4 -6; Start 04/29/17 at 20:00 Zolpidem Tartrate (Ambien) 5 mg QHS PRN PO INSOMNIA; Start 04/29/17 at 20:00 Docusate Sodium (Colace) 100 mg Q12H PRN PO CONSTIPATION; Start 04/29/17 at 20: 00 Bisacodyl (Dulcolax) 5 mg DAILY PRN PO CONSTIPATION; Start 04/29/17 at 20:00 Aspirin 325 mg 325 mg DAILY PO Last administered on 05/12/17 09:57; Admin Dose 325 MG; Start 04/30/17 at 09:00 Vasopressin 60 unit/Dextrose 60 ml @ 1.2 mls/hr Q12H IV Last administered on 01:07; Admin Dose 2.4 MLS/HR; Start 04/30/17 at 13:00 Phenylephrine HCl 80 mg/Dextrose 250 ml @ 18.75 mls/ hr TITRATE IV Last administered on 05/04/17 09:57; Admin Dose 31.87 MLS/HR; Start 04/30/17 at 18: 00 Norepinephrine/ Dextrose (Levophed/D5W) 250 ml @ 0.46 mls/hr TITRATE IV Last administered on 05/12/17 21:18; Admin Dose 4.68 MLS/HR; Start 04/30/17 at 18:00 Pantoprazole (Protonix Iv) 40 mg BID@06,18 IV Last administered on 05/13/17 05 :24; Admin Dose 40 MG; Start 05/02/17 at 18:00 Diphenhydramine HCl 25 mg 25 mg Q4H PRN IV ITCHING Last administered on 16:41; Admin Dose 25 MG; Start 05/02/17 at 08:30 Dobutamine HCl/ Dextrose 250 ml @ 4.755 mls/ hr TITRATE IV Last administered on 05/07/17 05:21; Admin Dose 3.804 MLS/HR; Start 05/03/17 at 09:30 Miscellaneous Information 1 ea NOTE XX ; Start 05/03/17 at 13:00 Glucose (Glutose) 15 gm Q15M PRN PO DECREASED GLUCOSE; Start 05/03/17 at 12:45 Glucose (Glutose) 22.5 gm Q15M PRN PO DECREASED GLUCOSE; Start 05/03/17 at 12: 45 Dextrose (D50w Syringe) 25 ml Q15M PRN IV DECREASED GLUCOSE Last administered on 05/03/17 12:48; Admin Dose 25 ML; Start 05/03/17 at 12:45 Dextrose (D50w Syringe) 50 ml Q15M PRN IV DECREASED GLUCOSE; Start 05/03/17 at 12:46 Glucagon (Glucagen) 1 mg Q15M PRN IM DECREASED GLUCOSE; Start 05/03/17 at 12:46 Glucose 15 gm 15 gm Q15M PRN BUCCAL DECREASED GLUCOSE; Start 05/03/17 at 12:46 Midazolam HCl 50 ml @ 1 mls/hr TITRATE IV Last administered on 05/13/17 00:17 ; Admin Dose 3 MLS/HR; Start 05/03/17 at 15:00 Dextrose/Sodium Chloride (D5-NS) 1,000 ml @ 20 mls/hr Q24H IV Last administered on 05/12/17 16:00; Admin Dose 20 MLS/HR; Start 05/03/17 at 16:00 Metoclopramide HCl (Reglan) 5 mg Q6 IV Last administered on 05/13/17 05:24; Admin Dose 5 MG; Start 05/04/17 at 12:00 Nystatin 5 ml 5 ml QID PO Last administered on 05/12/17 21:09; Admin Dose 5 ML ; Start 05/04/17 at 13:00 Fentanyl (Sublimaze) 100 ml @ 5 mls/hr TITRATE IV Last administered on 17:20; Admin Dose 5 MLS/HR; Start 05/06/17 at 08:30 Amiodarone HCl (Cordarone) 400 mg BID NGT Last administered on 05/12/17 21:10 ; Admin Dose 400 MG; Start 05/06/17 at 18:00 Eye Lubricant (Akwa Oint) 1 applic Q4 PRN BOTH EYES dryness Last administered on 05/08/17 08:59; Admin Dose 1 APPLIC; Start 05/07/17 at 13:00 Miscellaneous Information (Pending Santyl Order For Wound Care) This patient otto... PRN PRN XX WOUND CARE; Start 05/07/17 at 13:30 Carvedilol (Coreg) 3.125 mg BID PO Last administered on 05/11/17 21:05; Admin Dose 3.125 MG; Start 05/09/17 at 21:00 Lisinopril (Zestril) 2.5 mg DAILY PO ; Start 05/10/17 at 09:00 Morphine Sulfate (morphine) 1 mg Q4H PRN IV pain; Start 05/10/17 at 09:00 Methylprednisolone Sodium Succinate 10 mg 10 mg DAILY IV ; Start 05/13/17 at 09: 00; Stop 05/14/17 at 09:01 Meropenem/Sodium Chloride (Merrem 500mg/50 ml(Pmx)) 50 ml @ 100 mls/hr Q24H IVPB Last administered on 05/12/17 14:10; Admin Dose 100 MLS/HR; Start at 14:30 Scopolamine 1 patch 1 patch Q72H TRANSDERM Last administered on 05/11/17 17:55 ; Admin Dose 1 PATCH; Start 05/11/17 at 16:30 Sodium Chloride (NS) 1,000 ml @ 0 mls/hr Q0M PRN IV TO KEEP SBP ABOVE 90; Start 05/12/17 at 08:24 ARNULFO BLEVINS MD May 13, 2017 08:43
[2017-05-13] MEDS: LISINOPRIL 5 MG TAB PO SCH (09:00)
[2017-05-13] MEDS: NYSTATIN SUSP 5 ML CUP PO SCH ×4 (09:00→21:22)
[2017-05-13] MEDS ORDERED: IODIXANOL LOCM 100 ML BTL ONE (09:17)
[2017-05-13] MEDS ORDERED: LIDOCAINE 1% (MDV) 20 ML INJ ONE (09:17)
--- NOTE | 2017-05-13 09:35 | CONS ---
Date/Time of Note Date/Time of Note DATE: 05/13/17 TIME: 09:32 Assessment/Plan Assessment/Plan Additional Assessment/Plan Ventilator setting; AC of 16, tidal volume 500, PEEP of 5, 30% FiO2. Patient is on Levophed 6 mics per minute, Versed 3 mg/h. Assessment and recommendations; 1. Patient admitted with CHF exacerbation with severe cardiogenic shock now requiring low-dose Levophed. 2. Recurrent respiratory failure requiring reintubation yesterday. 3. Anemia and thrombocytopenia. 4. Prior CABG. 5. Chronic renal failure on hemodialysis. 6. Severe generalized deconditioning. Continue current treatment. Patient scheduled for coronary angiogram today. He will likely need tracheostomy. Consultation Date/Type/Reason Admit Date/Time Apr 29, 2017 at 19:31 Initial Consult Date 05/01/17 Type of Consultation: Pulmonary/critical care Referring Provider: YENNY WINSTON MD 24 HR Interval Summary Free Text/Dictation Patient condition remains critical. Had to be reintubated yesterday for very poor cough reflex and accommodation of secretions in the pharyngeal area. Patient currently now sedated. Has remained hemodynamically unstable requiring pressor administration with Levophed drip. General exam; elderly male, orally intubated, sedated, currently in no distress. Exam/Review of Systems Vital Signs Vitals Vital Signs Date Time Temp Pulse Resp B/P Pulse Ox O2 Delivery O2 Flow Rate FiO2 05/13/17 08:15 59 16 123/46 100 05/13/17 08:00 98.4 Mechanical Ventilator 05/13/17 08:00 30 05/12/17 09:00 4.0 Intake and Output 05/12/17 05/12/17 05/13/17 15:00 23:00 07:00 Intake Total 508 ml 142 ml 220 ml Output Total 2800 ml Balance -2292 ml 142 ml 220 ml Exam HEENT exam; supple neck, positive JVD. No lymphadenopathy. Midline trachea. No thyromegaly. Patient is a multiple carious teeth. Pupils are small bilaterally. Patient is orally intubated. Chest exam; diminished breath sounds bilaterally. S1-S2 audible, no murmurs. There is a well-healed sternal scar. Abdomen exam; soft, no organomegaly. Bowel sounds are sluggish. Extremity exam; trace edema. Patient does have ecchymosis involving all 4 extremities. 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 Results Result Diagram: 05/13/17 0530 05/13/17 0530 Results 24 hrs Laboratory Tests Test 05/12/17 10:30 05/12/17 10:34 05/13/17 05:30 Blood Gas Specimen Source Blood arterial Arterial Blood Date Drawn 05/12/2017 10:20:04 AM Arterial Blood pH (Temp corrected) 7.484 H Arterial Blood pCO2 (Temp correct) 36.6 Arterial Blood pO2 (Temp corrected) 202.2 H Arterial Blood HCO3 26.9 H Arterial Blood Base Excess 3.4 H Arterial Blood Oxygen Saturation 99.1 Hunter Test ACCEPTAB Arterial Blood Gas Puncture Site Right Radial Arterial Blood Carboxyhemoglobin 0.4 Arterial Blood Methemoglobin 0.1 Blood Gas A-a O2 Differential 113.1 H Oxyhemoglobin Percent 98.6 Total Hemoglobin 9.6 L Blood Gas Temperature 37.0 Blood Gas Respiration Rate 16.0 Blood Gas Actual Respiration Rate 16 Blood Gas Modality VENT - AC FiO2 50.0 Blood Gas Tidal Volume 500.0 Blood Gas Low PEEP Setting 5.0 Blood Gas Notified Whom JLD Blood Gas Notified Time 05/12/2017 10:40:43 AM White Blood Count 17.9 #H 18.5 H Red Blood Count 2.60 L 2.48 L Hemoglobin 8.5 L 8.3 L Hematocrit 26.0 L 25.2 L Mean Corpuscular Volume 100.0 101.6 H Mean Corpuscular Hemoglobin 32.7 33.5 H Mean Corpuscular Hemoglobin Concent 32.7 32.9 Red Cell Distribution Width 16.9 H 16.6 H Platelet Count 73 #L 71 L Mean Platelet Volume 12.3 H 12.2 H Neutrophils % 92.5 H 89.7 H Lymphocytes % 1.5 L 3.1 L Monocytes % 5.1 5.6 Eosinophils % 0.0 0.4 Basophils % 0.1 0.1 Nucleated Red Blood Cells % 0.0 0.0 Neutrophils # 16.5 H 16.6 H Lymphocytes # 0.3 L 0.6 L Monocytes # 0.9 1.0 H Eosinophils # 0.0 0.1 Basophils # 0.0 0.0 Nucleated Red Blood Cells # 0.0 0.0 Sodium Level 146 H 146 H Potassium Level 4.3 4.0 Chloride Level 107 109 Carbon Dioxide Level 27 27 Anion Gap 16 14 Blood Urea Nitrogen 63 H 76 H Creatinine 5.13 H 5.94 H Glucose Level 95 100 Calcium Level 7.6 L 7.5 L Total Bilirubin 0.4 0.3 Direct Bilirubin 0.00 # 0.00 Indirect Bilirubin 0.4 0.3 Aspartate Amino Transf (AST/SGOT) 31 30 Alanine Aminotransferase (ALT/SGPT) 135 H 119 H Alkaline Phosphatase 128 H 118 Total Protein 5.6 L 5.5 L Albumin 2.8 L 2.4 L Globulin 2.80 3.10 Albumin/Globulin Ratio 1.00 0.77 Phosphorus Level 5.1 H Magnesium Level 2.2 Troponin I 3.930 *H Random Vancomycin Level 12.0 Medications Medications Current Medications Folic Acid (Folic Acid) 1 mg DAILY PO Last administered on 05/12/17 09:57; Admin Dose 1 MG; Start 04/30/17 at 09:00 Ondansetron HCl (Zofran Inj) 4 mg Q6H PRN IV NAUSEA AND/OR VOMITING Last administered on 05/03/17 23:24; Admin Dose 4 MG; Start 04/29/17 at 20:00 Nitroglycerin (Nitroglycerin (Sl Tab) 0.4 Mg) 1 tab Q5M PRN SL CHEST PAIN; Start 04/29/17 at 20:00 Acetaminophen (Tylenol Liquid) 650 mg Q6H PRN PO PAIN LEVEL 1-3 OR FEVER; Start 04/29/17 at 20:00 Acetaminophen (Tylenol Tab) 650 mg Q6H PRN PO PAIN LEVEL 1-3 OR FEVER; Start at 20:00 Acetaminophen/ Hydrocodone Bitart ([place] (5/325)) 1 tab Q6H PRN PO PAIN LEVEL 4 -6; Start 04/29/17 at 20:00 Zolpidem Tartrate (Ambien) 5 mg QHS PRN PO INSOMNIA; Start 04/29/17 at 20:00 Docusate Sodium (Colace) 100 mg Q12H PRN PO CONSTIPATION; Start 04/29/17 at 20: 00 Bisacodyl (Dulcolax) 5 mg DAILY PRN PO CONSTIPATION; Start 04/29/17 at 20:00 Aspirin 325 mg 325 mg DAILY PO Last administered on 05/12/17 09:57; Admin Dose 325 MG; Start 04/30/17 at 09:00 Vasopressin 60 unit/Dextrose 60 ml @ 1.2 mls/hr Q12H IV Last administered on 01:07; Admin Dose 2.4 MLS/HR; Start 04/30/17 at 13:00 Phenylephrine HCl 80 mg/Dextrose 250 ml @ 18.75 mls/ hr TITRATE IV Last administered on 05/04/17 09:57; Admin Dose 31.87 MLS/HR; Start 04/30/17 at 18: 00 Norepinephrine/ Dextrose (Levophed/D5W) 250 ml @ 0.46 mls/hr TITRATE IV Last administered on 05/12/17 21:18; Admin Dose 4.68 MLS/HR; Start 04/30/17 at 18:00 Pantoprazole (Protonix Iv) 40 mg BID@06,18 IV Last administered on 05/13/17 05 :24; Admin Dose 40 MG; Start 05/02/17 at 18:00 Diphenhydramine HCl 25 mg 25 mg Q4H PRN IV ITCHING Last administered on 16:41; Admin Dose 25 MG; Start 05/02/17 at 08:30 Dobutamine HCl/ Dextrose 250 ml @ 4.755 mls/ hr TITRATE IV Last administered on 05/07/17 05:21; Admin Dose 3.804 MLS/HR; Start 05/03/17 at 09:30 Miscellaneous Information 1 ea NOTE XX ; Start 05/03/17 at 13:00 Glucose (Glutose) 15 gm Q15M PRN PO DECREASED GLUCOSE; Start 05/03/17 at 12:45 Glucose (Glutose) 22.5 gm Q15M PRN PO DECREASED GLUCOSE; Start 05/03/17 at 12: 45 Dextrose (D50w Syringe) 25 ml Q15M PRN IV DECREASED GLUCOSE Last administered on 05/03/17 12:48; Admin Dose 25 ML; Start 05/03/17 at 12:45 Dextrose (D50w Syringe) 50 ml Q15M PRN IV DECREASED GLUCOSE; Start 05/03/17 at 12:46 Glucagon (Glucagen) 1 mg Q15M PRN IM DECREASED GLUCOSE; Start 05/03/17 at 12:46 Glucose 15 gm 15 gm Q15M PRN BUCCAL DECREASED GLUCOSE; Start 05/03/17 at 12:46 Midazolam HCl 50 ml @ 1 mls/hr TITRATE IV Last administered on 05/13/17 00:17 ; Admin Dose 3 MLS/HR; Start 05/03/17 at 15:00 Dextrose/Sodium Chloride (D5-NS) 1,000 ml @ 20 mls/hr Q24H IV Last administered on 05/12/17 16:00; Admin Dose 20 MLS/HR; Start 05/03/17 at 16:00 Metoclopramide HCl (Reglan) 5 mg Q6 IV Last administered on 05/13/17 05:24; Admin Dose 5 MG; Start 05/04/17 at 12:00 Nystatin 5 ml 5 ml QID PO Last administered on 05/12/17 21:09; Admin Dose 5 ML ; Start 05/04/17 at 13:00 Fentanyl (Sublimaze) 100 ml @ 5 mls/hr TITRATE IV Last administered on 17:20; Admin Dose 5 MLS/HR; Start 05/06/17 at 08:30 Amiodarone HCl (Cordarone) 400 mg BID NGT Last administered on 05/12/17 21:10 ; Admin Dose 400 MG; Start 05/06/17 at 18:00 Eye Lubricant (Akwa Oint) 1 applic Q4 PRN BOTH EYES dryness Last administered on 05/08/17 08:59; Admin Dose 1 APPLIC; Start 05/07/17 at 13:00 Miscellaneous Information (Pending Santyl Order For Wound Care) This patient otto... PRN PRN XX WOUND CARE; Start 05/07/17 at 13:30 Carvedilol (Coreg) 3.125 mg BID PO Last administered on 05/11/17 21:05; Admin Dose 3.125 MG; Start 05/09/17 at 21:00 Lisinopril (Zestril) 2.5 mg DAILY PO ; Start 05/10/17 at 09:00 Morphine Sulfate (morphine) 1 mg Q4H PRN IV pain; Start 05/10/17 at 09:00 Methylprednisolone Sodium Succinate 10 mg 10 mg DAILY IV ; Start 05/13/17 at 09: 00; Stop 05/14/17 at 09:01 Meropenem/Sodium Chloride (Merrem 500mg/50 ml(Pmx)) 50 ml @ 100 mls/hr Q24H IVPB Last administered on 05/12/17 14:10; Admin Dose 100 MLS/HR; Start at 14:30 Scopolamine 1 patch 1 patch Q72H TRANSDERM Last administered on 05/11/17 17:55 ; Admin Dose 1 PATCH; Start 05/11/17 at 16:30 Sodium Chloride (NS) 1,000 ml @ 0 mls/hr Q0M PRN IV TO KEEP SBP ABOVE 90; Start 05/12/17 at 08:24 CHARLES EMAMNUEL May 13, 2017 09:35
[2017-05-13] MEDS ORDERED: SOD CHLORIDE 0.9% 500 ML ONE (11:02)
--- NOTE | 2017-05-13 11:04 | SIPON ---
Date/Time of Note Date/Time of Note DATE: 05/13/17 TIME: 11:00 Operative Report Preoperative Diagnosis 1.Acute FL 2.Hypotension 3. Cardiomyopathy Postoperative Diagnosis 1. 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 LV gram 4.Asc Aorta angio 5.moderate concious sedation Surgeon see signature line human resources benefits assistant Ciara Anesthesia: general Estimated blood loss: minimal Transfusion Required none Specimen none Grafts/Implants none Complications none MARCO KENNEDY May 13, 2017 11:04
--- NOTE | 2017-05-13 11:11 | CONS ---
Date/Time of Note Date/Time of Note DATE: 05/13/17 TIME: 11:06 Assessment/Plan Assessment/Plan Chief Complaint/Hosp Course IMP: 1.Acute PA-now downtrended cardiac enzymes without signs of ongoing myocardial necrosis 2.Shock-back on Levo 3.VT-now in SR on amio PO 4.resp failure s/p re-intubation 5.renal failure-on HD 6. Leukocytosis 7. Thrombocytopenia-slowly improving 8. Shock liver-improving 9. CHF-systolic acute on chronic likely with EF 20% by intial Echo. Most recent echo 35-40% Recc: -Continue ICU monitoring -Continue amio PO -Holding BB/ACEI as back on levo -Continue to trend cardiac enzymes -Follow platelet count with asa only as tolerated following platelet count closely. -F/U cx data and continue abx's -HD for volume removal as tolerated -transfuse platelets as necessary -wean vent as tolerated -Continue steroids Problems: Consultation Date/Type/Reason Admit Date/Time Apr 29, 2017 at 19:31 Initial Consult Date 05/02/17 Type of Consultation: cardiology Reason for Consultation 1.Acute PA Referring Provider: YENNY WINSTON MD Exam/Review of Systems Vital Signs Vitals Vital Signs Date Time Temp Pulse Resp B/P Pulse Ox O2 Delivery O2 Flow Rate FiO2 05/13/17 08:15 59 16 123/46 100 05/13/17 08:00 98.4 Mechanical Ventilator 05/13/17 08:00 30 05/12/17 09:00 4.0 Intake and Output 05/12/17 05/12/17 05/13/17 15:00 23:00 07:00 Intake Total 508 ml 142 ml 220 ml Output Total 2800 ml Balance -2292 ml 142 ml 220 ml Exam Review of Systems: CONSTITUTIONAL: No fevers, chills. PULMONARY: intubated CARDIOVASCULAR: No obvious chest pain/palpitations GASTROINTESTINAL: No nausea/vomiting. GENITOURINARY: No hematuria/dysuria. MUSCULOSKELETAL: No obvious myagias/arthalgias. PSYCHIATRIC: The patient denies depression. NEUROLOGIC: sedated Constitutional: alert Psych: no complaints Head: normocephalic ENMT: mucosa pink and moist Neck: jvd (190 cm), supple Respiratory: diminished breath sounds Cardiovascular: regular rate and rhythm Gastrointestinal: non-tender, soft Musculoskeletal: muscle tone (normal) Extremities: edema (none) Neurological: other (No focal deficits) Results Result Diagram: 05/13/17 0530 05/13/17 0530 Results 24 hrs Laboratory Tests Test 05/13/17 05:30 White Blood Count 18.5 H Red Blood Count 2.48 L Hemoglobin 8.3 L Hematocrit 25.2 L Mean Corpuscular Volume 101.6 H Mean Corpuscular Hemoglobin 33.5 H Mean Corpuscular Hemoglobin Concent 32.9 Red Cell Distribution Width 16.6 H Platelet Count 71 L Mean Platelet Volume 12.2 H Neutrophils % 89.7 H Lymphocytes % 3.1 L Monocytes % 5.6 Eosinophils % 0.4 Basophils % 0.1 Nucleated Red Blood Cells % 0.0 Neutrophils # 16.6 H Lymphocytes # 0.6 L Monocytes # 1.0 H Eosinophils # 0.1 Basophils # 0.0 Nucleated Red Blood Cells # 0.0 Sodium Level 146 H Potassium Level 4.0 Chloride Level 109 Carbon Dioxide Level 27 Anion Gap 14 Blood Urea Nitrogen 76 H Creatinine 5.94 H Glucose Level 100 Calcium Level 7.5 L Phosphorus Level 5.1 H Magnesium Level 2.2 Total Bilirubin 0.3 Direct Bilirubin 0.00 Indirect Bilirubin 0.3 Aspartate Amino Transf (AST/SGOT) 30 Alanine Aminotransferase (ALT/SGPT) 119 H Alkaline Phosphatase 118 Troponin I 3.930 *H Total Protein 5.5 L Albumin 2.4 L Globulin 3.10 Albumin/Globulin Ratio 0.77 Random Vancomycin Level 12.0 Medications Medications Current Medications Folic Acid (Folic Acid) 1 mg DAILY PO Last administered on 05/12/17 09:57; Admin Dose 1 MG; Start 04/30/17 at 09:00 Ondansetron HCl (Zofran Inj) 4 mg Q6H PRN IV NAUSEA AND/OR VOMITING Last administered on 05/03/17 23:24; Admin Dose 4 MG; Start 04/29/17 at 20:00 Nitroglycerin (Nitroglycerin (Sl Tab) 0.4 Mg) 1 tab Q5M PRN SL CHEST PAIN; Start 04/29/17 at 20:00 Acetaminophen (Tylenol Liquid) 650 mg Q6H PRN PO PAIN LEVEL 1-3 OR FEVER; Start 04/29/17 at 20:00 Acetaminophen (Tylenol Tab) 650 mg Q6H PRN PO PAIN LEVEL 1-3 OR FEVER; Start at 20:00 Acetaminophen/ Hydrocodone Bitart ([place] (5/325)) 1 tab Q6H PRN PO PAIN LEVEL 4 -6; Start 04/29/17 at 20:00 Zolpidem Tartrate (Ambien) 5 mg QHS PRN PO INSOMNIA; Start 04/29/17 at 20:00 Docusate Sodium (Colace) 100 mg Q12H PRN PO CONSTIPATION; Start 04/29/17 at 20: 00 Bisacodyl (Dulcolax) 5 mg DAILY PRN PO CONSTIPATION; Start 04/29/17 at 20:00 Aspirin 325 mg 325 mg DAILY PO Last administered on 05/12/17 09:57; Admin Dose 325 MG; Start 04/30/17 at 09:00 Vasopressin 60 unit/Dextrose 60 ml @ 1.2 mls/hr Q12H IV Last administered on 01:07; Admin Dose 2.4 MLS/HR; Start 04/30/17 at 13:00 Phenylephrine HCl 80 mg/Dextrose 250 ml @ 18.75 mls/ hr TITRATE IV Last administered on 05/04/17 09:57; Admin Dose 31.87 MLS/HR; Start 04/30/17 at 18: 00 Norepinephrine/ Dextrose (Levophed/D5W) 250 ml @ 0.46 mls/hr TITRATE IV Last administered on 05/12/17 21:18; Admin Dose 4.68 MLS/HR; Start 04/30/17 at 18:00 Pantoprazole (Protonix Iv) 40 mg BID@06,18 IV Last administered on 05/13/17 05 :24; Admin Dose 40 MG; Start 05/02/17 at 18:00 Diphenhydramine HCl 25 mg 25 mg Q4H PRN IV ITCHING Last administered on 16:41; Admin Dose 25 MG; Start 05/02/17 at 08:30 Dobutamine HCl/ Dextrose 250 ml @ 4.755 mls/ hr TITRATE IV Last administered on 05/07/17 05:21; Admin Dose 3.804 MLS/HR; Start 05/03/17 at 09:30 Miscellaneous Information 1 ea NOTE XX ; Start 05/03/17 at 13:00 Glucose (Glutose) 15 gm Q15M PRN PO DECREASED GLUCOSE; Start 05/03/17 at 12:45 Glucose (Glutose) 22.5 gm Q15M PRN PO DECREASED GLUCOSE; Start 05/03/17 at 12: 45 Dextrose (D50w Syringe) 25 ml Q15M PRN IV DECREASED GLUCOSE Last administered on 05/03/17 12:48; Admin Dose 25 ML; Start 05/03/17 at 12:45 Dextrose (D50w Syringe) 50 ml Q15M PRN IV DECREASED GLUCOSE; Start 05/03/17 at 12:46 Glucagon (Glucagen) 1 mg Q15M PRN IM DECREASED GLUCOSE; Start 05/03/17 at 12:46 Glucose 15 gm 15 gm Q15M PRN BUCCAL DECREASED GLUCOSE; Start 05/03/17 at 12:46 Midazolam HCl 50 ml @ 1 mls/hr TITRATE IV Last administered on 05/13/17 00:17 ; Admin Dose 3 MLS/HR; Start 05/03/17 at 15:00 Dextrose/Sodium Chloride (D5-NS) 1,000 ml @ 20 mls/hr Q24H IV Last administered on 05/12/17 16:00; Admin Dose 20 MLS/HR; Start 05/03/17 at 16:00 Metoclopramide HCl (Reglan) 5 mg Q6 IV Last administered on 05/13/17 05:24; Admin Dose 5 MG; Start 05/04/17 at 12:00 Nystatin 5 ml 5 ml QID PO Last administered on 05/12/17 21:09; Admin Dose 5 ML ; Start 05/04/17 at 13:00 Fentanyl (Sublimaze) 100 ml @ 5 mls/hr TITRATE IV Last administered on 17:20; Admin Dose 5 MLS/HR; Start 05/06/17 at 08:30 Amiodarone HCl (Cordarone) 400 mg BID NGT Last administered on 05/12/17 21:10 ; Admin Dose 400 MG; Start 05/06/17 at 18:00 Eye Lubricant (Akwa Oint) 1 applic Q4 PRN BOTH EYES dryness Last administered on 05/08/17 08:59; Admin Dose 1 APPLIC; Start 05/07/17 at 13:00 Miscellaneous Information (Pending [facility] Order For Wound Care) This patient otto... PRN PRN XX WOUND CARE; Start 05/07/17 at 13:30 Carvedilol (Coreg) 3.125 mg BID PO Last administered on 05/11/17 21:05; Admin Dose 3.125 MG; Start 05/09/17 at 21:00 Lisinopril (Zestril) 2.5 mg DAILY PO ; Start 05/10/17 at 09:00 Morphine Sulfate (morphine) 1 mg Q4H PRN IV pain; Start 05/10/17 at 09:00 Methylprednisolone Sodium Succinate 10 mg 10 mg DAILY IV ; Start 05/13/17 at 09: 00; Stop 05/14/17 at 09:01 Meropenem/Sodium Chloride (Merrem 500mg/50 ml(Pmx)) 50 ml @ 100 mls/hr Q24H IVPB Last administered on 05/12/17 14:10; Admin Dose 100 MLS/HR; Start at 14:30 Scopolamine 1 patch 1 patch Q72H TRANSDERM Last administered on 05/11/17 17:55 ; Admin Dose 1 PATCH; Start 05/11/17 at 16:30 Sodium Chloride (NS) 1,000 ml @ 0 mls/hr Q0M PRN IV TO KEEP SBP ABOVE 90; Start 05/12/17 at 08:24 MARCO KENNEDY May 13, 2017 11:11
[2017-05-13] MEDS: AMIODARONE 200 MG TAB NGT SCH ×2 (11:23→21:22)
[2017-05-13] MEDS: METHYLPREDNISOLONE 40 MG INJ IV SCH (11:23)
[2017-05-13] MEDS: FOLIC ACID 1 MG TAB PO SCH (11:24)
[2017-05-13] MEDS: ASPIRIN 325 MG TAB PO SCH (11:24)
[2017-05-13] MEDS ORDERED: ALBUMIN HUMAN 25% 100 ML IV ONE (13:30)
[2017-05-13] MEDS ORDERED: VANCOMYCIN 1 GM in NS 250 ML IVPB SCH (14:00)
[2017-05-13] MEDS: MEROPENEM 500MG/50 ML (PMX) 50 ML IVPB SCH (15:24)
[2017-05-13] MEDS: DEXTROSE 5%-0.9% NACL 1,000 ML IV SCH (16:00)
--- NOTE | 2017-05-13 21:57 | CONS ---
Date/Time of Note Date/Time of Note DATE: 05/13/17 TIME: 21:49 Assessment/Plan Assessment/Plan Chief Complaint/Hosp Course #Thrombocytopenia -now improved and > 50K. pt has not needed transfusion since 05/06 -this is secondary to shock liver as evidenced by the markedly elevated AST/ALT (>7000/5000). Liver enzymes have greatly improved -no evidence of hemolytic anemia -will continue to check daily DIC panel and transfuse 1 unit cryo if fibrinogen is < 150. fibrinogen is currently around 300 -given platelet count is > 50K, pt is now on ASA 81 -pt was able to tolerate cardiac cath without bleeding issues #Anemia - Hg 8.3 -would transfuse 2 units of PRBCs in Hg< 8 given he is on pressors #Cardiogenic shock with shock liver -management per cardiology -pt is s/p left heart cath #ESRD wit acidosis -continue HD as tolerated. currently blood pressure is very labile #Respiratory failure -patient remains intubated -management per pulmonary Problems: Consultation Date/Type/Reason Admit Date/Time Apr 29, 2017 at 19:31 Initial Consult Date 05/02/17 Type of Consultation: cardiology Reason for Consultation thrombocytopenia Referring Provider: YENNY WINSTON MD 24 HR Interval Summary Free Text/Dictation pt was seen in AM prior to cath no acute overnight events. no bleeding. remains intubated Exam/Review of Systems Vital Signs Vitals Vital Signs Date Time Temp Pulse Resp B/P Pulse Ox O2 Delivery O2 Flow Rate FiO2 05/13/17 21:30 64 17 100 30 05/13/17 20:00 98.2 104/48 Mechanical Ventilator 05/12/17 09:00 4.0 Intake and Output 05/12/17 05/12/17 05/13/17 15:00 23:00 07:00 Intake Total 508 ml 142 ml 220 ml Output Total 2800 ml Balance -2292 ml 142 ml 220 ml Exam Constitutional: frail Head: normocephalic Eyes: nl conjunctiva ENMT: nl external ears & nose Neck: non-tender, supple Respiratory: clear to auscultation, normal air movement Cardiovascular: regular rate and rhythm Gastrointestinal: soft Musculoskeletal: nl extremities to inspection Results Result Diagram: 05/13/17 0530 05/13/17 0530 Results 24 hrs Laboratory Tests Test 05/13/17 05:30 White Blood Count 18.5 H Red Blood Count 2.48 L Hemoglobin 8.3 L Hematocrit 25.2 L Mean Corpuscular Volume 101.6 H Mean Corpuscular Hemoglobin 33.5 H Mean Corpuscular Hemoglobin Concent 32.9 Red Cell Distribution Width 16.6 H Platelet Count 71 L Mean Platelet Volume 12.2 H Neutrophils % 89.7 H Lymphocytes % 3.1 L Monocytes % 5.6 Eosinophils % 0.4 Basophils % 0.1 Nucleated Red Blood Cells % 0.0 Neutrophils # 16.6 H Lymphocytes # 0.6 L Monocytes # 1.0 H Eosinophils # 0.1 Basophils # 0.0 Nucleated Red Blood Cells # 0.0 Sodium Level 146 H Potassium Level 4.0 Chloride Level 109 Carbon Dioxide Level 27 Anion Gap 14 Blood Urea Nitrogen 76 H Creatinine 5.94 H Glucose Level 100 Calcium Level 7.5 L Phosphorus Level 5.1 H Magnesium Level 2.2 Total Bilirubin 0.3 Direct Bilirubin 0.00 Indirect Bilirubin 0.3 Aspartate Amino Transf (AST/SGOT) 30 Alanine Aminotransferase (ALT/SGPT) 119 H Alkaline Phosphatase 118 Troponin I 3.930 *H Total Protein 5.5 L Albumin 2.4 L Globulin 3.10 Albumin/Globulin Ratio 0.77 Random Vancomycin Level 12.0 Medications Medications Current Medications Folic Acid (Folic Acid) 1 mg DAILY PO Last administered on 05/13/17 11:24; Admin Dose 1 MG; Start 04/30/17 at 09:00 Ondansetron HCl (Zofran Inj) 4 mg Q6H PRN IV NAUSEA AND/OR VOMITING Last administered on 05/03/17 23:24; Admin Dose 4 MG; Start 04/29/17 at 20:00 Nitroglycerin (Nitroglycerin (Sl Tab) 0.4 Mg) 1 tab Q5M PRN SL CHEST PAIN; Start 04/29/17 at 20:00 Acetaminophen (Tylenol Liquid) 650 mg Q6H PRN PO PAIN LEVEL 1-3 OR FEVER; Start 04/29/17 at 20:00 Acetaminophen (Tylenol Tab) 650 mg Q6H PRN PO PAIN LEVEL 1-3 OR FEVER; Start at 20:00 Acetaminophen/ Hydrocodone Bitart ([place] (5/325)) 1 tab Q6H PRN PO PAIN LEVEL 4 -6; Start 04/29/17 at 20:00 Zolpidem Tartrate (Ambien) 5 mg QHS PRN PO INSOMNIA; Start 04/29/17 at 20:00 Docusate Sodium (Colace) 100 mg Q12H PRN PO CONSTIPATION; Start 04/29/17 at 20: 00 Bisacodyl (Dulcolax) 5 mg DAILY PRN PO CONSTIPATION; Start 04/29/17 at 20:00 Aspirin 325 mg 325 mg DAILY PO Last administered on 05/13/17 11:24; Admin Dose 325 MG; Start 04/30/17 at 09:00 Vasopressin 60 unit/Dextrose 60 ml @ 1.2 mls/hr Q12H IV Last administered on 01:07; Admin Dose 2.4 MLS/HR; Start 04/30/17 at 13:00 Phenylephrine HCl 80 mg/Dextrose 250 ml @ 18.75 mls/ hr TITRATE IV Last administered on 05/04/17 09:57; Admin Dose 31.87 MLS/HR; Start 04/30/17 at 18: 00 Norepinephrine/ Dextrose (Levophed/D5W) 250 ml @ 0.46 mls/hr TITRATE IV Last administered on 05/12/17 21:18; Admin Dose 4.68 MLS/HR; Start 04/30/17 at 18:00 Pantoprazole (Protonix Iv) 40 mg BID@06,18 IV Last administered on 05/13/17 17 :13; Admin Dose 40 MG; Start 05/02/17 at 18:00 Diphenhydramine HCl 25 mg 25 mg Q4H PRN IV ITCHING Last administered on 16:41; Admin Dose 25 MG; Start 05/02/17 at 08:30 Dobutamine HCl/ Dextrose 250 ml @ 4.755 mls/ hr TITRATE IV Last administered on 05/07/17 05:21; Admin Dose 3.804 MLS/HR; Start 05/03/17 at 09:30 Miscellaneous Information 1 ea NOTE XX ; Start 05/03/17 at 13:00 Glucose (Glutose) 15 gm Q15M PRN PO DECREASED GLUCOSE; Start 05/03/17 at 12:45 Glucose (Glutose) 22.5 gm Q15M PRN PO DECREASED GLUCOSE; Start 05/03/17 at 12: 45 Dextrose (D50w Syringe) 25 ml Q15M PRN IV DECREASED GLUCOSE Last administered on 05/03/17 12:48; Admin Dose 25 ML; Start 05/03/17 at 12:45 Dextrose (D50w Syringe) 50 ml Q15M PRN IV DECREASED GLUCOSE; Start 05/03/17 at 12:46 Glucagon (Glucagen) 1 mg Q15M PRN IM DECREASED GLUCOSE; Start 05/03/17 at 12:46 Glucose 15 gm 15 gm Q15M PRN BUCCAL DECREASED GLUCOSE; Start 05/03/17 at 12:46 Midazolam HCl 50 ml @ 1 mls/hr TITRATE IV Last administered on 05/13/17 00:17 ; Admin Dose 3 MLS/HR; Start 05/03/17 at 15:00 Dextrose/Sodium Chloride (D5-NS) 1,000 ml @ 20 mls/hr Q24H IV Last administered on 05/12/17 16:00; Admin Dose 20 MLS/HR; Start 05/03/17 at 16:00 Metoclopramide HCl (Reglan) 5 mg Q6 IV Last administered on 05/13/17 17:14; Admin Dose 5 MG; Start 05/04/17 at 12:00 Nystatin 5 ml 5 ml QID PO Last administered on 05/13/17 21:22; Admin Dose 5 ML ; Start 05/04/17 at 13:00 Fentanyl (Sublimaze) 100 ml @ 5 mls/hr TITRATE IV Last administered on 17:20; Admin Dose 5 MLS/HR; Start 05/06/17 at 08:30 Amiodarone HCl (Cordarone) 400 mg BID NGT Last administered on 05/13/17 21:22 ; Admin Dose 400 MG; Start 05/06/17 at 18:00 Eye Lubricant (Akwa Oint) 1 applic Q4 PRN BOTH EYES dryness Last administered on 05/08/17 08:59; Admin Dose 1 APPLIC; Start 05/07/17 at 13:00 Miscellaneous Information (Pending Santyl Order For Wound Care) This patient otto... PRN PRN XX WOUND CARE; Start 05/07/17 at 13:30 Carvedilol (Coreg) 3.125 mg BID PO Last administered on 05/11/17 21:05; Admin Dose 3.125 MG; Start 05/09/17 at 21:00 Lisinopril (Zestril) 2.5 mg DAILY PO ; Start 05/10/17 at 09:00 Morphine Sulfate (morphine) 1 mg Q4H PRN IV pain; Start 05/10/17 at 09:00 Methylprednisolone Sodium Succinate 10 mg 10 mg DAILY IV Last administered on 11:23; Admin Dose 10 MG; Start 05/13/17 at 09:00; Stop 05/14/17 at 09: 01 Meropenem/Sodium Chloride (Merrem 500mg/50 ml(Pmx)) 50 ml @ 100 mls/hr Q24H IVPB Last administered on 05/13/17 15:24; Admin Dose 100 MLS/HR; Start at 14:30 Scopolamine 1 patch 1 patch Q72H TRANSDERM Last administered on 05/11/17 17:55 ; Admin Dose 1 PATCH; Start 05/11/17 at 16:30 Sodium Chloride (NS) 1,000 ml @ 0 mls/hr Q0M PRN IV TO KEEP SBP ABOVE 90; Start 05/12/17 at 08:24 Miscellaneous Information HOLD all METFORMIN ... ONCE XX ; Start 05/13/17 at 11: 30; Stop 05/15/17 at 11:29 Vancomycin HCl (Vancocin) 250 ml @ 125 mls/hr Q96H IVPB Last administered on 15:45; Admin Dose 125 MLS/HR; Start 05/13/17 at 14:00 JEFF HANSON M.D. May 13, 2017 21:57
[2017-05-14] VITALS (60 sets, daily range): BP systolic 77–134; BP diastolic 38–86; PULSE 38–65; RESP 8–27
[2017-05-14] MEDS: IPRATROPIUM (HFA) 12.9 GM INHALER INH SCH ×4 (01:16→19:26)
[2017-05-14] MEDS: ALBUTEROL 18 GM INHALER INH SCH ×4 (01:17→19:26)
[2017-05-14 05:15] LABS: ABNORMAL IP MESSAGE 1; MEAN CORPUSCULAR HEMOGLOBIN 32.7 pg (29.0-33.0); MEAN PLATELET VOLUME 13.7 fl (7.4-10.4); PLATELET COUNT 43 10^3/UL (140-415); POSITIVE DIFF @See below; RED BLOOD COUNT 2.02 10^6/ul (4.70-6.10); RED CELL DISTRIBUTION WIDTH 16.7 % (11.5-14.5); WHITE BLOOD COUNT 8.5 10^3/ul (4.8-10.8)
[2017-05-14 05:37] LABS: ALBUMIN 2.4 g/dl (3.3-4.9); ALBUMIN/GLOBULIN RATIO 0.88; BILIRUBIN,INDIRECT 0.4 mg/dl (0-1.1); BILIRUBIN,TOTAL 0.4 mg/dl (0.2-1.3); CALCIUM 8.4 mg/dl (8.4-10.2); CREATININE 3.92 mg/dl (0.61-1.24); TOTAL PROTEIN 5.1 g/dl (6.1-8.1)
[2017-05-14 05:39] LABS: MAGNESIUM 1.9 mg/dl (1.7-2.5); PHOSPHORUS 4.1 mg/dl (2.5-4.9)
[2017-05-14 06:03] LABS: HEMOGLOBIN 6.6 g/dl (14.0-18.0)
[2017-05-14] MEDS: PANTOPRAZOLE 40 MG INJ IV SCH ×2 (06:17→17:27)
[2017-05-14] MEDS: METOCLOPRAMIDE 10 MG INJ IV SCH ×3 (06:17→17:27)
[2017-05-14 07:37] LABS: ANISOCYTOSIS 2+ (0-0); GIANT THROMBO% (M) 1 % (0-0); HYPOCHROMASIA 1+ (0-0); METAMYELOCYTES %M 1 % (0-0); MICROCYTOSIS 1+ (0-0); MONOCYTES % (M) 7 % (0-11); PLATELET ESTIMATE DECREASED; POIKILOCYTOSIS 3+ (0-0); POLYCHROMASIA 2+ (0-0); REACTIVE LYMPHOCYTES% (M) 2 % (0-0)
[2017-05-14] MEDS: DEXTROSE 5%-0.9% NACL 1,000 ML IV SCH (08:00)
[2017-05-14] MEDS: ASPIRIN 325 MG TAB PO SCH (09:00)
[2017-05-14] MEDS: LISINOPRIL 5 MG TAB PO SCH (09:00)
--- NOTE | 2017-05-14 09:16 | PN ---
DATE: 05/13/2017 SUBJECTIVE DATA: No events overnight. Patient remains intubated, sedated, and in no distress. VITAL SIGNS: Temperature 98.1, pulse 58, respirations 17, blood pressure 112/39, saturation 100 on 30 FiO2. LABORATORY DATA: WBC 18.5. H and H 8.2 and 25.2, platelets 71,000, neutrophils 89.7. DIAGNOSTICS: Chest x-ray this morning revealed pulmonary vascular congestion, improved. Left basilar atelectasis versus pneumonia, also improved. INDWELLINGS: Endotracheal tube, NG tube, left upper extremity AV fistula, femoral triple lumen catheter. ANTIMICROBIALS: Patient is on IV vancomycin and meropenem. He is also on steroids. PHYSICAL EXAMINATION: GENERAL: This is a chronically ill-appearing elderly man who is in no distress. HEENT: Head atraumatic, normocephalic. Sclerae anicteric. Buccal mucosa dry. NECK: Supple. Trachea midline. CHEST: Rise symmetrical. Breath sounds diminished at the bases. HEART: S1, S2. ABDOMEN: Soft, bowel sounds present. EXTREMITIES: Without cyanosis. ASSESSMENT: 1. Sepsis. 2. Acute respiratory failure, re-intubated secondary to significant secretion retention. 3. Pneumonia, possibly aspiration. 4. Acute myocardial infarction. 5. Cardiomyopathy. 6. End-stage renal disease. 7. History of streptococcal bacteremia. 8. History of coronary artery bypass grafting. PLAN: Patient remains stable. Continue present care, antibiotics. Follow Cardiology recommendations. 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 Dictated By: Chelly Hudson NP /valarie/ara /Document#: [id number]
[2017-05-14] MEDS: FOLIC ACID 1 MG TAB PO SCH (09:55)
[2017-05-14] MEDS: AMIODARONE 200 MG TAB NGT SCH ×2 (09:56→21:55)
[2017-05-14] MEDS: METHYLPREDNISOLONE 40 MG INJ IV SCH (09:57)
[2017-05-14] MEDS: NYSTATIN SUSP 5 ML CUP PO SCH ×4 (09:58→21:00)
--- NOTE | 2017-05-14 09:59 | CONS ---
Date/Time of Note Date/Time of Note DATE: 05/14/17 TIME: 09:51 Assessment/Plan Assessment/Plan Chief Complaint/Hosp Course ID PROGRESS NOTE TOTAL ABX DAY # CURRENT ABX=> VAnco IV + Merrem Cefepim 05/02 - 05/11 24H INTERVAL SUMMARY * s/p LHC yesterday, stable * CXR improved LLL PNA GENERAL: VSS, NAD HEENT: ETT/OGT-> Secure NECK: Trach midline, full ROM CHEST: Rise symmetrical without dyspnea on observation ABDOMEN: Soft, EXTREMITIES: Warm,(+) moves extremities SKIN: No diaphoresis, no rash ID ASSESSMENT: 87 yo M admit with: 1. Resolving Sepsis-> s/p Alpha Strep septicemia w/BCX (+) 04/29/17, repeat (-) 2. Acute respiratory failure, re-intubated secondary to significant secretion retention. 3. Pneumonia, possibly aspiration. 4. Acute myocardial infarction. 5. Cardiomyopathy. 6. End-stage renal disease. 7. Anuric 8. History of coronary artery bypass grafting. 9. DVT RUEXT INVASIVES: LUEXT AVF, R-FEM TLC, ETT, OGT, ABX ALLERGY: NKDA TOTAL ABX DAY # CURRENT ABX=> VAnco IV + Merrem Cefepim 05/02 - 05/11 ID PLAN 1. Continue current ABX over the weekend, taper soon, PNA improving, femoral line at risk hence ABX continue 2. Weaning per pulmonary . Problems: Consultation Date/Type/Reason Admit Date/Time Apr 29, 2017 at 19:31 Initial Consult Date 05/02/17 Type of Consultation: ID Referring Provider: YENNY WINSTON MD Exam/Review of Systems Vital Signs Vitals Vital Signs Date Time Temp Pulse Resp B/P Pulse Ox O2 Delivery O2 Flow Rate FiO2 05/14/17 07:00 61 20 108/51 100 Mechanical Ventilator 05/14/17 05:34 30 05/14/17 04:00 98.8 05/12/17 09:00 4.0 Intake and Output 05/13/17 05/13/17 05/14/17 15:00 23:00 07:00 Intake Total 353.83 ml 804 ml 184 ml Output Total 2300 ml Balance 353.83 ml -1496 ml 184 ml Results Result Diagram: 05/14/17 0410 05/14/17409 Results 24 hrs Laboratory Tests Test 05/14/17 04:10 White Blood Count 8.5 # Red Blood Count 2.02 L Hemoglobin 6.6 #*L Hematocrit 20.0 #L Mean Corpuscular Volume 99.0 Mean Corpuscular Hemoglobin 32.7 Mean Corpuscular Hemoglobin Concent 33.0 Red Cell Distribution Width 16.7 H Platelet Count 43 #L Mean Platelet Volume 13.7 H Neutrophils % Segmented Neutrophils % (Manual) 80 H Band Neutrophils % (Manual) 6 H Lymphocytes % Lymphocytes % (Manual) 4 L Reactive Lymphocytes % (Manual) 2 H Monocytes % Monocytes % (Manual) 7 Eosinophils % Basophils % Metamyelocytes % (manual) 1 H Nucleated Red Blood Cells % 0.0 Neutrophils # Neutrophils # (Manual) 6.8 Band Neutrophils # 0.5 Absolute Lymphocytes (Manual) 0.3 L Lymphocytes # Reactive Lymphocytes # 0.1 H Monocytes # Absolute Monocytes (Manual) 0.5 Eosinophils # Basophils # Metamyelocytes # 0.0 Nucleated Red Blood Cells # Platelet Estimate DECREASED Giant Platelets 1 H Polychromasia 2+ Hypochromasia 1+ Poikilocytosis 3+ Anisocytosis 2+ Microcytosis 1+ Macrocytosis 1+ Sodium Level 141 Potassium Level 4.0 Chloride Level 103 Carbon Dioxide Level 31 Anion Gap 11 Blood Urea Nitrogen 47 #H Creatinine 3.92 #H Glucose Level 105 Calcium Level 8.4 Phosphorus Level 4.1 Magnesium Level 1.9 Total Bilirubin 0.4 Direct Bilirubin 0.00 Indirect Bilirubin 0.4 Aspartate Amino Transf (AST/SGOT) 31 Alanine Aminotransferase (ALT/SGPT) 93 H Alkaline Phosphatase 98 Total Protein 5.1 L Albumin 2.4 L Globulin 2.70 Albumin/Globulin Ratio 0.88 Medications Medications Current Medications Folic Acid (Folic Acid) 1 mg DAILY PO Last administered on 05/13/17 11:24; Admin Dose 1 MG; Start 04/30/17 at 09:00 Ondansetron HCl (Zofran Inj) 4 mg Q6H PRN IV NAUSEA AND/OR VOMITING Last administered on 05/03/17 23:24; Admin Dose 4 MG; Start 04/29/17 at 20:00 Nitroglycerin (Nitroglycerin (Sl Tab) 0.4 Mg) 1 tab Q5M PRN SL CHEST PAIN; Start 04/29/17 at 20:00 Acetaminophen (Tylenol Liquid) 650 mg Q6H PRN PO PAIN LEVEL 1-3 OR FEVER; Start 04/29/17 at 20:00 Acetaminophen (Tylenol Tab) 650 mg Q6H PRN PO PAIN LEVEL 1-3 OR FEVER; Start at 20:00 Acetaminophen/ Hydrocodone Bitart ([place] (5/325)) 1 tab Q6H PRN PO PAIN LEVEL 4 -6; Start 04/29/17 at 20:00 Zolpidem Tartrate (Ambien) 5 mg QHS PRN PO INSOMNIA; Start 04/29/17 at 20:00 Docusate Sodium (Colace) 100 mg Q12H PRN PO CONSTIPATION; Start 04/29/17 at 20: 00 Bisacodyl (Dulcolax) 5 mg DAILY PRN PO CONSTIPATION; Start 04/29/17 at 20:00 Aspirin 325 mg 325 mg DAILY PO Last administered on 05/13/17 11:24; Admin Dose 325 MG; Start 04/30/17 at 09:00 Vasopressin 60 unit/Dextrose 60 ml @ 1.2 mls/hr Q12H IV Last administered on 01:07; Admin Dose 2.4 MLS/HR; Start 04/30/17 at 13:00 Phenylephrine HCl 80 mg/Dextrose 250 ml @ 18.75 mls/ hr TITRATE IV Last administered on 05/04/17 09:57; Admin Dose 31.87 MLS/HR; Start 04/30/17 at 18: 00 Norepinephrine/ Dextrose (Levophed/D5W) 250 ml @ 0.46 mls/hr TITRATE IV Last administered on 05/12/17 21:18; Admin Dose 4.68 MLS/HR; Start 04/30/17 at 18:00 Pantoprazole (Protonix Iv) 40 mg BID@06,18 IV Last administered on 05/14/17 06 :17; Admin Dose 40 MG; Start 05/02/17 at 18:00 Diphenhydramine HCl 25 mg 25 mg Q4H PRN IV ITCHING Last administered on 16:41; Admin Dose 25 MG; Start 05/02/17 at 08:30 Dobutamine HCl/ Dextrose 250 ml @ 4.755 mls/ hr TITRATE IV Last administered on 05/07/17 05:21; Admin Dose 3.804 MLS/HR; Start 05/03/17 at 09:30 Miscellaneous Information 1 ea NOTE XX ; Start 05/03/17 at 13:00 Glucose (Glutose) 15 gm Q15M PRN PO DECREASED GLUCOSE; Start 05/03/17 at 12:45 Glucose (Glutose) 22.5 gm Q15M PRN PO DECREASED GLUCOSE; Start 05/03/17 at 12: 45 Dextrose (D50w Syringe) 25 ml Q15M PRN IV DECREASED GLUCOSE Last administered on 05/03/17 12:48; Admin Dose 25 ML; Start 05/03/17 at 12:45 Dextrose (D50w Syringe) 50 ml Q15M PRN IV DECREASED GLUCOSE; Start 05/03/17 at 12:46 Glucagon (Glucagen) 1 mg Q15M PRN IM DECREASED GLUCOSE; Start 05/03/17 at 12:46 Glucose 15 gm 15 gm Q15M PRN BUCCAL DECREASED GLUCOSE; Start 05/03/17 at 12:46 Midazolam HCl 50 ml @ 1 mls/hr TITRATE IV Last administered on 05/13/17 23:21 ; Admin Dose 3 MLS/HR; Start 05/03/17 at 15:00 Dextrose/Sodium Chloride (D5-NS) 1,000 ml @ 20 mls/hr Q24H IV Last administered on 05/12/17 16:00; Admin Dose 20 MLS/HR; Start 05/03/17 at 16:00 Metoclopramide HCl (Reglan) 5 mg Q6 IV Last administered on 05/14/17 06:17; Admin Dose 5 MG; Start 05/04/17 at 12:00 Nystatin 5 ml 5 ml QID PO Last administered on 05/13/17 21:22; Admin Dose 5 ML ; Start 05/04/17 at 13:00 Fentanyl (Sublimaze) 100 ml @ 5 mls/hr TITRATE IV Last administered on 17:20; Admin Dose 5 MLS/HR; Start 05/06/17 at 08:30 Amiodarone HCl (Cordarone) 400 mg BID NGT Last administered on 05/13/17 21:22 ; Admin Dose 400 MG; Start 05/06/17 at 18:00 Eye Lubricant (Akwa Oint) 1 applic Q4 PRN BOTH EYES dryness Last administered on 05/08/17 08:59; Admin Dose 1 APPLIC; Start 05/07/17 at 13:00 Miscellaneous Information (Pending [facility] Order For Wound Care) This patient otto... PRN PRN XX WOUND CARE; Start 05/07/17 at 13:30 Carvedilol (Coreg) 3.125 mg BID PO Last administered on 05/13/17 23:21; Admin Dose 3.125 MG; Start 05/09/17 at 21:00 Lisinopril (Zestril) 2.5 mg DAILY PO ; Start 05/10/17 at 09:00 Morphine Sulfate 1 mg 1 mg Q4H PRN IV pain; Start 05/10/17 at 09:00 Meropenem/Sodium Chloride (Merrem 500mg/50 ml(Pmx)) 50 ml @ 100 mls/hr Q24H IVPB Last administered on 05/13/17 15:24; Admin Dose 100 MLS/HR; Start at 14:30 Scopolamine 1 patch 1 patch Q72H TRANSDERM Last administered on 05/11/17 17:55 ; Admin Dose 1 PATCH; Start 05/11/17 at 16:30 Sodium Chloride (NS) 1,000 ml @ 0 mls/hr Q0M PRN IV TO KEEP SBP ABOVE 90; Start 05/12/17 at 08:24 Miscellaneous Information HOLD all METFORMIN ... ONCE XX ; Start 05/13/17 at 11: 30; Stop 05/15/17 at 11:29 Vancomycin HCl (Vancocin) 250 ml @ 125 mls/hr Q96H IVPB Last administered on 15:45; Admin Dose 125 MLS/HR; Start 05/13/17 at 14:00 ROSA M PORRAS NP May 14, 2017 09:59
--- NOTE | 2017-05-14 11:17 | CONS ---
Date/Time of Note Date/Time of Note DATE: 05/14/17 TIME: 11:08 Assessment/Plan Assessment/Plan Chief Complaint/Hosp Course IMP: 1.Acute WI-now downtrended cardiac enzymes without signs of ongoing myocardial necrosis. Now s/p LHC with patent SVG to RCA and [place] Ramus/LAD. All other grafts occluded 2.Shock-back on Levo 3.VT-now in SR on amio PO 4.resp failure s/p re-intubation 5.renal failure-on HD 6. Leukocytosis 7. Thrombocytopenia-slowly improving 8. Shock liver-improving 9. CHF-systolic acute on chronic likely with EF 20% by intial Echo. Most recent echo 35-40% 10. Anemia- acute worsening, ? etiology RP bleed Recc: -Continue ICU monitoring -Continue amio PO -BB/ACEI as tolerated -Continue to trend cardiac enzymes -Follow platelet count with asa only as tolerated following platelet count closely. -F/U cx data and continue abx's -HD for volume removal as tolerated -transfuse platelets as necessary -wean vent as tolerated -Continue steroids -Transfuse PRBC's Problems: Consultation Date/Type/Reason Admit Date/Time Apr 29, 2017 at 19:31 Initial Consult Date 05/02/17 Type of Consultation: cardiology Reason for Consultation Acute WI Referring Provider: YENNY WINSTON MD Exam/Review of Systems Vital Signs Vitals Vital Signs Date Time Temp Pulse Resp B/P Pulse Ox O2 Delivery O2 Flow Rate FiO2 05/14/17 10:30 63 19 117/57 100 05/14/17 10:00 Mechanical Ventilator 05/14/17 08:00 98.7 05/14/17 05:34 30 05/12/17 09:00 4.0 Intake and Output 05/13/17 05/13/17 05/14/17 15:00 23:00 07:00 Intake Total 353.83 ml 804 ml 184 ml Output Total 2300 ml Balance 353.83 ml -1496 ml 184 ml Exam Review of Systems: CONSTITUTIONAL: No fevers, chills. PULMONARY: No sob CARDIOVASCULAR: No chest pain/palpitations GASTROINTESTINAL: No nausea/vomiting. GENITOURINARY: No hematuria/dysuria. MUSCULOSKELETAL: No myagias/arthalgias. PSYCHIATRIC: The patient denies depression. NEUROLOGIC: No weakness Constitutional: alert Psych: no complaints Head: normocephalic ENMT: intubated Neck: jvd (9 cm water), supple Respiratory: diminished breath sounds Cardiovascular: regular rate and rhythm Gastrointestinal: non-tender, soft Musculoskeletal: muscle tone (normal) Extremities: pitting pedal edema (trace bilateral) Neurological: other (sedated) Results Result Diagram: 05/14/170 05/14/17 0410 Results 24 hrs Laboratory Tests Test 05/14/17 04:10 White Blood Count 8.5 # Red Blood Count 2.02 L Hemoglobin 6.6 #*L Hematocrit 20.0 #L Mean Corpuscular Volume 99.0 Mean Corpuscular Hemoglobin 32.7 Mean Corpuscular Hemoglobin Concent 33.0 Red Cell Distribution Width 16.7 H Platelet Count 43 #L Mean Platelet Volume 13.7 H Neutrophils % Segmented Neutrophils % (Manual) 80 H Band Neutrophils % (Manual) 6 H Lymphocytes % Lymphocytes % (Manual) 4 L Reactive Lymphocytes % (Manual) 2 H Monocytes % Monocytes % (Manual) 7 Eosinophils % Basophils % Metamyelocytes % (manual) 1 H Nucleated Red Blood Cells % 0.0 Neutrophils # Neutrophils # (Manual) 6.8 Band Neutrophils # 0.5 Absolute Lymphocytes (Manual) 0.3 L Lymphocytes # Reactive Lymphocytes # 0.1 H Monocytes # Absolute Monocytes (Manual) 0.5 Eosinophils # Basophils # Metamyelocytes # 0.0 Nucleated Red Blood Cells # Platelet Estimate DECREASED Giant Platelets 1 H Polychromasia 2+ Hypochromasia 1+ Poikilocytosis 3+ Anisocytosis 2+ Microcytosis 1+ Macrocytosis 1+ Sodium Level 141 Potassium Level 4.0 Chloride Level 103 Carbon Dioxide Level 31 Anion Gap 11 Blood Urea Nitrogen 47 #H Creatinine 3.92 #H Glucose Level 105 Calcium Level 8.4 Phosphorus Level 4.1 Magnesium Level 1.9 Total Bilirubin 0.4 Direct Bilirubin 0.00 Indirect Bilirubin 0.4 Aspartate Amino Transf (AST/SGOT) 31 Alanine Aminotransferase (ALT/SGPT) 93 H Alkaline Phosphatase 98 Total Protein 5.1 L Albumin 2.4 L Globulin 2.70 Albumin/Globulin Ratio 0.88 Medications Medications Current Medications Folic Acid (Folic Acid) 1 mg DAILY PO Last administered on 05/14/17t 09:55; Admin Dose 1 MG; Start 04/30/17 at 09:00 Ondansetron HCl (Zofran Inj) 4 mg Q6H PRN IV NAUSEA AND/OR VOMITING Last administered on 05/03/17 23:24; Admin Dose 4 MG; Start 04/29/17 at 20:00 Nitroglycerin (Nitroglycerin (Sl Tab) 0.4 Mg) 1 tab Q5M PRN SL CHEST PAIN; Start 04/29/17 at 20:00 Acetaminophen (Tylenol Liquid) 650 mg Q6H PRN PO PAIN LEVEL 1-3 OR FEVER; Start 04/29/17 at 20:00 Acetaminophen (Tylenol Tab) 650 mg Q6H PRN PO PAIN LEVEL 1-3 OR FEVER; Start at 20:00 Acetaminophen/ Hydrocodone Bitart ([place] (5/325)) 1 tab Q6H PRN PO PAIN LEVEL 4 -6; Start 04/29/17 at 20:00 Zolpidem Tartrate (Ambien) 5 mg QHS PRN PO INSOMNIA; Start 04/29/17 at 20:00 Docusate Sodium (Colace) 100 mg Q12H PRN PO CONSTIPATION; Start 04/29/17 at 20: 00 Bisacodyl (Dulcolax) 5 mg DAILY PRN PO CONSTIPATION; Start 04/29/17 at 20:00 Aspirin 325 mg 325 mg DAILY PO Last administered on 05/13/17 11:24; Admin Dose 325 MG; Start 04/30/17 at 09:00 Vasopressin 60 unit/Dextrose 60 ml @ 1.2 mls/hr Q12H IV Last administered on 01:07; Admin Dose 2.4 MLS/HR; Start 04/30/17 at 13:00 Phenylephrine HCl 80 mg/Dextrose 250 ml @ 18.75 mls/ hr TITRATE IV Last administered on 05/04/17 09:57; Admin Dose 31.87 MLS/HR; Start 04/30/17 at 18: 00 Norepinephrine/ Dextrose (Levophed/D5W) 250 ml @ 0.46 mls/hr TITRATE IV Last administered on 05/12/17 21:18; Admin Dose 4.68 MLS/HR; Start 04/30/17 at 18:00 Pantoprazole (Protonix Iv) 40 mg BID@,18 IV Last administered on 05/14/17 06 :17; Admin Dose 40 MG; Start 05/02/17 at 18:00 Diphenhydramine HCl 25 mg 25 mg Q4H PRN IV ITCHING Last administered on 16:41; Admin Dose 25 MG; Start 05/02/17 at 08:30 Dobutamine HCl/ Dextrose 250 ml @ 4.755 mls/ hr TITRATE IV Last administered on 05/07/17 05:21; Admin Dose 3.804 MLS/HR; Start 05/03/17 at 09:30 Miscellaneous Information 1 ea NOTE XX ; Start 05/03/17 at 13:00 Glucose (Glutose) 15 gm Q15M PRN PO DECREASED GLUCOSE; Start 05/03/17 at 12:45 Glucose (Glutose) 22.5 gm Q15M PRN PO DECREASED GLUCOSE; Start 05/03/17 at 12: 45 Dextrose (D50w Syringe) 25 ml Q15M PRN IV DECREASED GLUCOSE Last administered on 05/03/17 12:48; Admin Dose 25 ML; Start 05/03/17 at 12:45 Dextrose (D50w Syringe) 50 ml Q15M PRN IV DECREASED GLUCOSE; Start 05/03/17 at 12:46 Glucagon (Glucagen) 1 mg Q15M PRN IM DECREASED GLUCOSE; Start 05/03/17 at 12:46 Glucose 15 gm 15 gm Q15M PRN BUCCAL DECREASED GLUCOSE; Start 05/03/17 at 12:46 Midazolam HCl 50 ml @ 1 mls/hr TITRATE IV Last administered on 05/13/17 23:21 ; Admin Dose 3 MLS/HR; Start 05/03/17 at 15:00 Dextrose/Sodium Chloride (D5-NS) 1,000 ml @ 20 mls/hr Q24H IV Last administered on 05/12/17 16:00; Admin Dose 20 MLS/HR; Start 05/03/17 at 16:00 Metoclopramide HCl (Reglan) 5 mg Q6 IV Last administered on 05/14/17 06:17; Admin Dose 5 MG; Start 05/04/17 at 12:00 Nystatin 5 ml 5 ml QID PO Last administered on 05/14/17 09:58; Admin Dose 5 ML ; Start 05/04/17 at 13:00 Fentanyl (Sublimaze) 100 ml @ 5 mls/hr TITRATE IV Last administered on 17:20; Admin Dose 5 MLS/HR; Start 05/06/17 at 08:30 Amiodarone HCl (Cordarone) 400 mg BID NGT Last administered on 05/14/17 09:56 ; Admin Dose 400 MG; Start 05/06/17 at 18:00 Eye Lubricant (Akwa Oint) 1 applic Q4 PRN BOTH EYES dryness Last administered on 05/08/17 08:59; Admin Dose 1 APPLIC; Start 05/07/17 at 13:00 Miscellaneous Information [facility] This patient otto... PRN PRN XX WOUND CARE; Start 05/07/17 at 13:30 Carvedilol (Coreg) 3.125 mg BID PO Last administered on 05/13/17 23:21; Admin Dose 3.125 MG; Start 05/09/17 at 21:00 Lisinopril (Zestril) 2.5 mg DAILY PO ; Start 05/10/17 at 09:00 Morphine Sulfate 1 mg 1 mg Q4H PRN IV pain; Start 05/10/17 at 09:00 Meropenem/Sodium Chloride (Merrem 500mg/50 ml(Pmx)) 50 ml @ 100 mls/hr Q24H IVPB Last administered on 05/13/17 15:24; Admin Dose 100 MLS/HR; Start at 14:30 Scopolamine 1 patch 1 patch Q72H TRANSDERM Last administered on 05/11/17 17:55 ; Admin Dose 1 PATCH; Start 05/11/17 at 16:30 Sodium Chloride (NS) 1,000 ml @ 0 mls/hr Q0M PRN IV TO KEEP SBP ABOVE 90; Start 05/12/17 at 08:24 Miscellaneous Information HOLD all METFORMIN ... ONCE XX ; Start 05/13/17 at 11: 30; Stop 05/15/17 at 11:29 Vancomycin HCl (Vancocin) 250 ml @ 125 mls/hr Q96H IVPB Last administered on 15:45; Admin Dose 125 MLS/HR; Start 05/13/17 at 14:00 MARCO KENNEDY May 14, 2017 11:17
--- NOTE | 2017-05-14 12:02 | CONS ---
Date/Time of Note Date/Time of Note DATE: 05/14/17 TIME: 11:58 Consult Date/Type/Reason Admit Date/Time Apr 29, 2017 at 19:31 Type of Consultation: Pulm/CCM Ordering Provider: YENNY WINSTON MD Subjective Remains on low dose pressors. Was re-intubated yesterday. Objective Vital Signs Date Time Temp Pulse Resp B/P Pulse Ox O2 Delivery O2 Flow Rate FiO2 05/14/17 10:30 63 19 117/57 100 05/14/17 10:00 Mechanical Ventilator 05/14/17 08:00 98.7 05/14/17 08:00 30 05/12/17 09:00 4.0 Intake and Output 05/13/17 05/13/17 05/14/17 15:00 23:00 07:00 Intake Total 353.83 ml 804 ml 184 ml Output Total 2300 ml Balance 353.83 ml -1496 ml 184 ml Exam HEENT: Neck supple; no JVD; no LAD; + ET tube CVS: RRR, S1 and S2 CHEST: Coarse BS b/l ABD: Soft, NT, + BS EXT: No c/c; + UE and LE edema Results/Medications Result Diagram: 05/14/170 05/14/17 0410 Results 24 hrs Laboratory Tests Test 05/14/17 04:10 White Blood Count 8.5 # Red Blood Count 2.02 L Hemoglobin 6.6 #*L Hematocrit 20.0 #L Mean Corpuscular Volume 99.0 Mean Corpuscular Hemoglobin 32.7 Mean Corpuscular Hemoglobin Concent 33.0 Red Cell Distribution Width 16.7 H Platelet Count 43 #L Mean Platelet Volume 13.7 H Neutrophils % Segmented Neutrophils % (Manual) 80 H Band Neutrophils % (Manual) 6 H Lymphocytes % Lymphocytes % (Manual) 4 L Reactive Lymphocytes % (Manual) 2 H Monocytes % Monocytes % (Manual) 7 Eosinophils % Basophils % Metamyelocytes % (manual) 1 H Nucleated Red Blood Cells % 0.0 Neutrophils # Neutrophils # (Manual) 6.8 Band Neutrophils # 0.5 Absolute Lymphocytes (Manual) 0.3 L Lymphocytes # Reactive Lymphocytes # 0.1 H Monocytes # Absolute Monocytes (Manual) 0.5 Eosinophils # Basophils # Metamyelocytes # 0.0 Nucleated Red Blood Cells # Platelet Estimate DECREASED Giant Platelets 1 H Polychromasia 2+ Hypochromasia 1+ Poikilocytosis 3+ Anisocytosis 2+ Microcytosis 1+ Macrocytosis 1+ Sodium Level 141 Potassium Level 4.0 Chloride Level 103 Carbon Dioxide Level 31 Anion Gap 11 Blood Urea Nitrogen 47 #H Creatinine 3.92 #H Glucose Level 105 Calcium Level 8.4 Phosphorus Level 4.1 Magnesium Level 1.9 Total Bilirubin 0.4 Direct Bilirubin 0.00 Indirect Bilirubin 0.4 Aspartate Amino Transf (AST/SGOT) 31 Alanine Aminotransferase (ALT/SGPT) 93 H Alkaline Phosphatase 98 Total Protein 5.1 L Albumin 2.4 L Globulin 2.70 Albumin/Globulin Ratio 0.88 Medications Current Medications Folic Acid (Folic Acid) 1 mg DAILY PO Last administered on 05/14/17 09:55; Admin Dose 1 MG; Start 04/30/17 at 09:00 Ondansetron HCl (Zofran Inj) 4 mg Q6H PRN IV NAUSEA AND/OR VOMITING Last administered on 05/03/17 23:24; Admin Dose 4 MG; Start 04/29/17 at 20:00 Nitroglycerin (Nitroglycerin (Sl Tab) 0.4 Mg) 1 tab Q5M PRN SL CHEST PAIN; Start 04/29/17 at 20:00 Acetaminophen (Tylenol Liquid) 650 mg Q6H PRN PO PAIN LEVEL 1-3 OR FEVER; Start 04/29/17 at 20:00 Acetaminophen (Tylenol Tab) 650 mg Q6H PRN PO PAIN LEVEL 1-3 OR FEVER; Start at 20:00 Acetaminophen/ Hydrocodone Bitart ([place] (5/325)) 1 tab Q6H PRN PO PAIN LEVEL 4 -6; Start 04/29/17 at 20:00 Zolpidem Tartrate (Ambien) 5 mg QHS PRN PO INSOMNIA; Start 04/29/17 at 20:00 Docusate Sodium (Colace) 100 mg Q12H PRN PO CONSTIPATION; Start 04/29/17 at 20: 00 Bisacodyl (Dulcolax) 5 mg DAILY PRN PO CONSTIPATION; Start 04/29/17 at 20:00 Aspirin 325 mg 325 mg DAILY PO Last administered on 05/13/17 11:24; Admin Dose 325 MG; Start 04/30/17 at 09:00 Vasopressin 60 unit/Dextrose 60 ml @ 1.2 mls/hr Q12H IV Last administered on 01:07; Admin Dose 2.4 MLS/HR; Start 04/30/17 at 13:00 Phenylephrine HCl 80 mg/Dextrose 250 ml @ 18.75 mls/ hr TITRATE IV Last administered on 05/04/17 09:57; Admin Dose 31.87 MLS/HR; Start 04/30/17 at 18: 00 Norepinephrine/ Dextrose (Levophed/D5W) 250 ml @ 0.46 mls/hr TITRATE IV Last administered on 05/12/17 21:18; Admin Dose 4.68 MLS/HR; Start 04/30/17 at 18:00 Pantoprazole (Protonix Iv) 40 mg BID@06,18 IV Last administered on 05/14/17 06 :17; Admin Dose 40 MG; Start 05/02/17 at 18:00 Diphenhydramine HCl 25 mg 25 mg Q4H PRN IV ITCHING Last administered on 16:41; Admin Dose 25 MG; Start 05/02/17 at 08:30 Dobutamine HCl/ Dextrose 250 ml @ 4.755 mls/ hr TITRATE IV Last administered on 05/07/17 05:21; Admin Dose 3.804 MLS/HR; Start 05/03/17 at 09:30 Miscellaneous Information 1 ea NOTE XX ; Start 05/03/17 at 13:00 Glucose (Glutose) 15 gm Q15M PRN PO DECREASED GLUCOSE; Start 05/03/17 at 12:45 Glucose (Glutose) 22.5 gm Q15M PRN PO DECREASED GLUCOSE; Start 05/03/17 at 12: 45 Dextrose (D50w Syringe) 25 ml Q15M PRN IV DECREASED GLUCOSE Last administered on 05/03/17 12:48; Admin Dose 25 ML; Start 05/03/17 at 12:45 Dextrose (D50w Syringe) 50 ml Q15M PRN IV DECREASED GLUCOSE; Start 05/03/17 at 12:46 Glucagon (Glucagen) 1 mg Q15M PRN IM DECREASED GLUCOSE; Start 05/03/17 at 12:46 Glucose 15 gm 15 gm Q15M PRN BUCCAL DECREASED GLUCOSE; Start 05/03/17 at 12:46 Midazolam HCl 50 ml @ 1 mls/hr TITRATE IV Last administered on 05/13/17 23:21 ; Admin Dose 3 MLS/HR; Start 05/03/17 at 15:00 Dextrose/Sodium Chloride (D5-NS) 1,000 ml @ 20 mls/hr Q24H IV Last administered on 05/12/17 16:00; Admin Dose 20 MLS/HR; Start 05/03/17 at 16:00 Metoclopramide HCl (Reglan) 5 mg Q6 IV Last administered on 05/14/17 06:17; Admin Dose 5 MG; Start 05/04/17 at 12:00 Nystatin 5 ml 5 ml QID PO Last administered on 05/14/17 09:58; Admin Dose 5 ML ; Start 05/04/17 at 13:00 Fentanyl (Sublimaze) 100 ml @ 5 mls/hr TITRATE IV Last administered on 17:20; Admin Dose 5 MLS/HR; Start 05/06/17 at 08:30 Amiodarone HCl (Cordarone) 400 mg BID NGT Last administered on 05/14/17 09:56 ; Admin Dose 400 MG; Start 05/06/17 at 18:00 Eye Lubricant (Akwa Oint) 1 applic Q4 PRN BOTH EYES dryness Last administered on 05/08/17 08:59; Admin Dose 1 APPLIC; Start 05/07/17 at 13:00 Miscellaneous Information (Pending [facility] Order For Wound Care) This patient otto... PRN PRN XX WOUND CARE; Start 05/07/17 at 13:30 Carvedilol (Coreg) 3.125 mg BID PO Last administered on 05/13/17 23:21; Admin Dose 3.125 MG; Start 05/09/17 at 21:00 Lisinopril (Zestril) 2.5 mg DAILY PO ; Start 05/10/17 at 09:00 Morphine Sulfate 1 mg 1 mg Q4H PRN IV pain; Start 05/10/17 at 09:00 Meropenem/Sodium Chloride (Merrem 500mg/50 ml(Pmx)) 50 ml @ 100 mls/hr Q24H IVPB Last administered on 05/13/17 15:24; Admin Dose 100 MLS/HR; Start at 14:30 Scopolamine 1 patch 1 patch Q72H TRANSDERM Last administered on 05/11/17 17:55 ; Admin Dose 1 PATCH; Start 05/11/17 at 16:30 Sodium Chloride (NS) 1,000 ml @ 0 mls/hr Q0M PRN IV TO KEEP SBP ABOVE 90; Start 05/12/17 at 08:24 Miscellaneous Information HOLD all METFORMIN ... ONCE XX ; Start 05/13/17 at 11: 30; Stop 05/15/17 at 11:29 Vancomycin HCl (Vancocin) 250 ml @ 125 mls/hr Q96H IVPB Last administered on 15:45; Admin Dose 125 MLS/HR; Start 05/13/17 at 14:00 Assessment/Plan Chief Complaint/Hosp Course Briefly, this is an 87 yo with HTN, CAD, CABG 1989 4V -0 per family presenting with V.tach/fib arrest likely due to a massive IA with associated refractory cardiogenic shock. Problems: Additional Assessment/Plan IMP: 1. s/p Acute IA presenting with V.Fib arrest 2. 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 Cardiogenic Shock 4. ESRD on HD 5. Ishemic Hepatopathy 6. Anemia 7. Thrombocytopenia RECS: 1. Vent support 2. May need trach 3. Will assess resp muscle function parameters 4. Transfuse 2 units 5. Follow H/H, DIC panel 35 min cc time RY WONG MD May 14, 2017 12:02
[2017-05-14 12:33] LABS: HEMATOCRIT 25.9 % (42.0-52.0); HEMOGLOBIN 8.7 g/dl (14.0-18.0)
[2017-05-14] MEDS: VASOPRESSIN 60 UNIT in DEXTROSE 5% 57 ML IV SCH (13:00)
[2017-05-14] MEDS: MEROPENEM 500MG/50 ML (PMX) 50 ML IVPB SCH (14:30)
--- NOTE | 2017-05-14 16:02 | PN ---
Date/Time of Note Date/Time of Note DATE: 05/14/17 TIME: 15:55 Assessment/Plan VTE Prophylaxis VTE Prophylaxis Intervention: contraindicated VTE Contraindication Reason: bleeding Lines/Catheters IV Catheter Type (from Nrsg): Central Line Central line still needed: Yes Urinary Cath still in place: Yes Reason Cath still needed: urinary retention Assessment/Plan Chief Complaint/Hosp Course 87 y/o with # s/p V Tachy/V Fib likely secondary to ischemia on Amiodarone and s/p Digoxin, now sinus # Shock likely Cardiogenic with AMI with Tropinins 150 on 3 pressors> downtrending Troponin to 40>15>7>5 likely combination of sepsis with Strep bactermia however repeat bld cx negative. Sputum cx+nelly. Currently off pressors. # Acute UT-now downtrended cardiac enzymes without signs of ongoing myocardial necrosis. Now s/p LHC with patent SVG to RCA and [place] Ram[place]/LAD. 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, now more edematous s/p daily HD # Acute on chronic heart failure with EF 30% # Shock liver improving LFTs with improving ischemia # Lactic acidosis improved # Respiratory failure on Vent s/p extubation , s/p reintubation # Thrombocytopenia s/p 1 unit platelets likley due to shock liver now improved # Anemia S/P 2 units PRBC # Right arm DVT but could not be on anticoagulation due to thrombocytopenia Recs - Transfused 1 unit today, repeat 8.9 - GI consult, c/w PPI - Recheck CBC at 9 - U/S Left arm - HD tmw - Vent management per Pulmonary - Held ASA - Frequent deep suctioning, HOB elevated, scopalamine patch - C/W Coreg/ Lisnopril, titration per cards thru NG tube - c/w Vancomycin and Meropenam per I.D l - c/w Amiodarone 400 bid - Labs am Problems: Subjective 24 Hr Interval Summary Free Text/Dictation H dropped to 6.6 today Dark stool noted per Nurse Given 1 unit PRBC repeat 8.9 Exam/Review of Systems Vital Signs Vitals Vital Signs Date Time Temp Pulse Resp B/P Pulse Ox O2 Delivery O2 Flow Rate FiO2 05/14/17 13:40 56 16 100 30 05/14/17 10:30 117/57 05/14/17 10:00 Mechanical Ventilator 05/14/17 08:00 98.7 05/12/17 09:00 4.0 Intake and Output 05/13/17 05/13/17 05/14/17 15:00 23:00 07:00 Intake Total 353.83 ml 804 ml 184 ml Output Total 2300 ml Balance 353.83 ml -1496 ml 184 ml Exam General: opens eyes, intubated NECK: JVD elevated, no thyromegaly Lymph: no lymphadenopathy HEART: regular with no S3, BRANDI LUNGS:Coarse breath sounds b/l ABD: soft, NT, ND, +BS Neuro: non focal SKIN: chronic changes EXT: Edema arms 2+ left arm> rt Results Result Diagram: 05/14/17 1219 05/14/17 0410 Results 24 hrs Laboratory Tests Test 05/14/17 04:10 05/14/17 12:19 White Blood Count 8.5 # Red Blood Count 2.02 L Hemoglobin 6.6 #*L 8.7 #L Hematocrit 20.0 #L 25.9 #L Mean Corpuscular Volume 99.0 Mean Corpuscular Hemoglobin 32.7 Mean Corpuscular Hemoglobin Concent 33.0 Red Cell Distribution Width 16.7 H Platelet Count 43 #L Mean Platelet Volume 13.7 H Neutrophils % Segmented Neutrophils % (Manual) 80 H Band Neutrophils % (Manual) 6 H Lymphocytes % Lymphocytes % (Manual) 4 L Reactive Lymphocytes % (Manual) 2 H Monocytes % Monocytes % (Manual) 7 Eosinophils % Basophils % Metamyelocytes % (manual) 1 H Nucleated Red Blood Cells % 0.0 Neutrophils # Neutrophils # (Manual) 6.8 Band Neutrophils # 0.5 Absolute Lymphocytes (Manual) 0.3 L Lymphocytes # Reactive Lymphocytes # 0.1 H Monocytes # Absolute Monocytes (Manual) 0.5 Eosinophils # Basophils # Metamyelocytes # 0.0 Nucleated Red Blood Cells # Platelet Estimate DECREASED Giant Platelets 1 H Polychromasia 2+ Hypochromasia 1+ Poikilocytosis 3+ Anisocytosis 2+ Microcytosis 1+ Macrocytosis 1+ Sodium Level 141 Potassium Level 4.0 Chloride Level 103 Carbon Dioxide Level 31 Anion Gap 11 Blood Urea Nitrogen 47 #H Creatinine 3.92 #H Glucose Level 105 Calcium Level 8.4 Phosphorus Level 4.1 Magnesium Level 1.9 Total Bilirubin 0.4 Direct Bilirubin 0.00 Indirect Bilirubin 0.4 Aspartate Amino Transf (AST/SGOT) 31 Alanine Aminotransferase (ALT/SGPT) 93 H Alkaline Phosphatase 98 Total Protein 5.1 L Albumin 2.4 L Globulin 2.70 Albumin/Globulin Ratio 0.88 Medications Medications Current Medications Folic Acid (Folic Acid) 1 mg DAILY PO Last administered on 05/14/17 09:55; Admin Dose 1 MG; Start 04/30/17 at 09:00 Ondansetron HCl (Zofran Inj) 4 mg Q6H PRN IV NAUSEA AND/OR VOMITING Last administered on 05/03/17 23:24; Admin Dose 4 MG; Start 04/29/17 at 20:00 Nitroglycerin (Nitroglycerin (Sl Tab) 0.4 Mg) 1 tab Q5M PRN SL CHEST PAIN; Start 04/29/17 at 20:00 Acetaminophen (Tylenol Liquid) 650 mg Q6H PRN PO PAIN LEVEL 1-3 OR FEVER; Start 04/29/17 at 20:00 Acetaminophen (Tylenol Tab) 650 mg Q6H PRN PO PAIN LEVEL 1-3 OR FEVER; Start at 20:00 Acetaminophen/ Hydrocodone Bitart ([place] (5/325)) 1 tab Q6H PRN PO PAIN LEVEL 4 -6; Start 04/29/17 at 20:00 Zolpidem Tartrate (Ambien) 5 mg QHS PRN PO INSOMNIA; Start 04/29/17 at 20:00 Docusate Sodium (Colace) 100 mg Q12H PRN PO CONSTIPATION; Start 04/29/17 at 20: 00 Bisacodyl (Dulcolax) 5 mg DAILY PRN PO CONSTIPATION; Start 04/29/17 at 20:00 Aspirin 325 mg 325 mg DAILY PO Last administered on 05/13/17 11:24; Admin Dose 325 MG; Start 04/30/17 at 09:00 Vasopressin 60 unit/Dextrose 60 ml @ 1.2 mls/hr Q12H IV Last administered on 01:07; Admin Dose 2.4 MLS/HR; Start 04/30/17 at 13:00 Phenylephrine HCl 80 mg/Dextrose 250 ml @ 18.75 mls/ hr TITRATE IV Last administered on 05/04/17 09:57; Admin Dose 31.87 MLS/HR; Start 04/30/17 at 18: 00 Norepinephrine/ Dextrose (Levophed/D5W) 250 ml @ 0.46 mls/hr TITRATE IV Last administered on 05/12/17 21:18; Admin Dose 4.68 MLS/HR; Start 04/30/17 at 18:00 Pantoprazole (Protonix Iv) 40 mg BID@06,18 IV Last administered on 05/14/17 06 :17; Admin Dose 40 MG; Start 05/02/17 at 18:00 Diphenhydramine HCl 25 mg 25 mg Q4H PRN IV ITCHING Last administered on 16:41; Admin Dose 25 MG; Start 05/02/17 at 08:30 Dobutamine HCl/ Dextrose 250 ml @ 4.755 mls/ hr TITRATE IV Last administered on 05/07/17 05:21; Admin Dose 3.804 MLS/HR; Start 05/03/17 at 09:30 Miscellaneous Information 1 ea NOTE XX ; Start 05/03/17 at 13:00 Glucose (Glutose) 15 gm Q15M PRN PO DECREASED GLUCOSE; Start 05/03/17 at 12:45 Glucose (Glutose) 22.5 gm Q15M PRN PO DECREASED GLUCOSE; Start 05/03/17 at 12: 45 Dextrose (D50w Syringe) 25 ml Q15M PRN IV DECREASED GLUCOSE Last administered on 05/03/17 12:48; Admin Dose 25 ML; Start 05/03/17 at 12:45 Dextrose (D50w Syringe) 50 ml Q15M PRN IV DECREASED GLUCOSE; Start 05/03/17 at 12:46 Glucagon (Glucagen) 1 mg Q15M PRN IM DECREASED GLUCOSE; Start 05/03/17 at 12:46 Glucose 15 gm 15 gm Q15M PRN BUCCAL DECREASED GLUCOSE; Start 05/03/17 at 12:46 Midazolam HCl 50 ml @ 1 mls/hr TITRATE IV Last administered on 05/13/17 23:21 ; Admin Dose 3 MLS/HR; Start 05/03/17 at 15:00 Dextrose/Sodium Chloride (D5-NS) 1,000 ml @ 20 mls/hr Q24H IV Last administered on 05/14/17 08:00; Admin Dose 20 MLS/HR; Start 05/03/17 at 16:00 Metoclopramide HCl (Reglan) 5 mg Q6 IV Last administered on 05/14/17 13:40; Admin Dose 5 MG; Start 05/04/17 at 12:00 Nystatin 5 ml 5 ml QID PO Last administered on 05/14/17 13:40; Admin Dose 5 ML ; Start 05/04/17 at 13:00 Fentanyl (Sublimaze) 100 ml @ 5 mls/hr TITRATE IV Last administered on 17:20; Admin Dose 5 MLS/HR; Start 05/06/17 at 08:30 Amiodarone HCl (Cordarone) 400 mg BID NGT Last administered on 05/14/17 09:56 ; Admin Dose 400 MG; Start 05/06/17 at 18:00 Eye Lubricant (Akwa Oint) 1 applic Q4 PRN BOTH EYES dryness Last administered on 05/08/17 08:59; Admin Dose 1 APPLIC; Start 05/07/17 at 13:00 Miscellaneous Information (Pending [facility] Order For Wound Care) This patient otto... PRN PRN XX WOUND CARE; Start 05/07/17 at 13:30 Carvedilol (Coreg) 3.125 mg BID PO Last administered on 05/13/17 23:21; Admin Dose 3.125 MG; Start 05/09/17 at 21:00 Lisinopril (Zestril) 2.5 mg DAILY PO ; Start 05/10/17 at 09:00 Morphine Sulfate 1 mg 1 mg Q4H PRN IV pain; Start 05/10/17 at 09:00 Meropenem/Sodium Chloride (Merrem 500mg/50 ml(Pmx)) 50 ml @ 100 mls/hr Q24H IVPB Last administered on 05/14/17 14:30; Admin Dose 100 MLS/HR; Start at 14:30 Scopolamine 1 patch 1 patch Q72H TRANSDERM Last administered on 05/11/17 17:55 ; Admin Dose 1 PATCH; Start 05/11/17 at 16:30 Sodium Chloride (NS) 1,000 ml @ 0 mls/hr Q0M PRN IV TO KEEP SBP ABOVE 90; Start 05/12/17 at 08:24 Miscellaneous Information HOLD all METFORMIN ... ONCE XX ; Start 05/13/17 at 11: 30; Stop 05/15/17 at 11:29 Vancomycin HCl (Vancocin) 250 ml @ 125 mls/hr Q96H IVPB Last administered on t 15:45; Admin Dose 125 MLS/HR; Start 05/13/17 at 14:00 ARNULFO BLEVINS MD May 14, 2017 16:02
--- NOTE | 2017-05-14 17:13 | RADRPT ---
PROCEDURE: Left upper extremity venous ultrasound CLINICAL INDICATION: Left arm pain and swelling. Deep venous thrombosis. TECHNIQUE: Valenzuela scale, color doppler, spectral doppler ultrasound imaging of the venous system of the left upper extremity. Augmentation maneuvers were utilized. COMPARISON: 05/04/2017 FINDINGS: LEFT: Internal jugular vein: Patent. Subclavian vein: Patent. Axillary vein: Patent. Brachial vein: Patent. Basilic vein: Patent. Cephalic vein: Patent. Fistula is patent. Radial vein: Patent. Ulnar vein: Patent. Subcutaneous edema is present in the forearm. IMPRESSION: No evidence of a deep vein thrombosis involving the left upper extremity. RPTAT: AADD .Jordan Graham MD, MD Date Time Electronically viewed and signed by .Jordan Graham MD, on 05/14/2017 17:13 .B/
[2017-05-14] MEDS: SCOPOLAMINE 1.5 MG PATCH TRANSDERM SCH (17:27)
[2017-05-14] MEDS: MIDAZOLAM (DRIP) 50 mg/50 mL 50 ML IV SCH (17:47)
--- NOTE | 2017-05-14 20:16 | CONS ---
DATE OF ADMISSION: 04/29/2017 DATE OF CONSULTATION: 05/14/2017 REQUESTING PHYSICIANS: Danny Burnham MD and Dr. Olivo HISTORY OF PRESENT ILLNESS: Patient is an 87-year-old male with coronary artery disease, end-stage renal disease on dialysis, esophageal stricture, status post dilatation, was admitted to the hospital because of myocardial infarction. Patient's cardiac enzymes were elevated, had shock liver, initially on three pressor support medications. Patient underwent coronary angiogram, the graft vessels were occluded. GI consult was called in for GI bleeding, and stool for occult blood was positive. Patient required blood transfusion. Patient is now intubated. No information could be gathered from him. Most of the information gathered by reviewing the chart. PAST MEDICAL HISTORY: End-stage renal disease, coronary artery disease, mild anemia, esophageal stricture. SOCIAL HISTORY: Lives with children. Does not smoke or drink. ALLERGIES: NONE. PHYSICAL EXAMINATION: Well-built, nourished. He is intubated. HEART: No murmur, gallop or click. LUNGS: Clear. ABDOMEN: Benign. EXTREMITIES: No edema. BRAIDER SETTER: Patient is sedated. LABORATORY: Stool for occult blood was positive, and as per the staff there was GI bleeding, dark color stool. Patient's creatinine is 3.93. Liver function tests are almost back to normal. Hematocrit is 25.9. INR is 1.3. Platelet count 43,000. IMPRESSION: 1. Gastrointestinal bleeding. 2. History of esophageal stricture status post dilatation. 3. Status post coronary angiogram. 4. Renal failure on dialysis. 5. Thrombocytopenia. 6. Respiratory failure on vent. 7. Shock liver but now the liver function is back to normal. 8. Congestive heart failure, the ejection fraction is 35-40 percent. 9. Ventricular tachycardia, now in sinus rhythm on amiodarone. PLAN: 1. Continue present care. 2. Transfuse on a needed basis, keep the hemoglobin above 8 or 9. 3. Keep the platelet count above 50,000 to prevent bleeding. 4. Avoid blood thinner for the time being. 5. Continue with beta-abdon and GUANACO inhibitor, and continue with proton pump inhibitor. Dictated By: Abhilash Jimenez MD /valarie/ara /Document#: [id number] CC: Danny Burnham MD;*[facility]*
[2017-05-14 20:55] LABS: ABNORMAL IP MESSAGE 1; HEMATOCRIT 25.3 % (42.0-52.0); HEMOGLOBIN 8.7 g/dl (14.0-18.0); LYMPHOCYTES # 0.2 10^3/ul (0.8-2.9); LYMPHOCYTES % 2.8 % (15.0-51.0); MEAN CORPUSCULAR HEMOGLOBIN 32.6 pg (29.0-33.0); MEAN CORPUSCULAR HGB CONC 34.4 g/dl (32.0-37.0); MEAN CORPUSCULAR VOLUME 94.8 fl (82.0-101.0); MEAN PLATELET VOLUME 12.8 fl (7.4-10.4); MONOCYTE # 0.3 10^3/ul (0.3-0.9); MONOCYTES % 3.9 % (0.0-11.0); NEUTROPHILS % 92.7 % (39.0-77.0); POSITIVE DIFF @See below; RED BLOOD COUNT 2.67 10^6/ul (4.70-6.10); RED CELL DISTRIBUTION WIDTH 20.4 % (11.5-14.5); WHITE BLOOD COUNT 8.6 10^3/ul (4.8-10.8)
[2017-05-14 20:57] LABS: PLATELET COUNT 31 10^3/UL (140-415)
[2017-05-15] VITALS (90 sets, daily range): BP systolic 78–136; BP diastolic 28–100; PULSE 38–68; RESP 14–27
[2017-05-15] MEDS: METOCLOPRAMIDE 10 MG INJ IV SCH ×4 (00:25→17:21)
[2017-05-15] MEDS: IPRATROPIUM (HFA) 12.9 GM INHALER INH SCH ×4 (01:18→19:29)
[2017-05-15] MEDS: ALBUTEROL 18 GM INHALER INH SCH ×4 (01:19→19:30)
[2017-05-15 04:46] LABS: AADO2 Arterial 87.1 mmHg (7.0-24.0); Allen Test ACCEPTAB; Arterial Base Excess 1.5 mmol/L (-3.0-3); Arterial COHb 0.8 % (0.0-3.0); Arterial Fraction of Oxyhgb 95.8 % (93.0-99.0); Arterial HCO3 24.3 mmol/L (22.0-26.0); Arterial MetHb 0.2 % (0.0-1.5); Arterial Total Hemglobin 12.2 g/dl (12.0-18.0); MODE VENT - AC
[2017-05-15 05:13] LABS: ABNORMAL IP MESSAGE 1; HEMATOCRIT 25.3 % (42.0-52.0); HEMOGLOBIN 8.5 g/dl (14.0-18.0); LYMPHOCYTES # 0.3 10^3/ul (0.8-2.9); MEAN CORPUSCULAR HEMOGLOBIN 31.5 pg (29.0-33.0); MEAN CORPUSCULAR HGB CONC 33.6 g/dl (32.0-37.0); MEAN CORPUSCULAR VOLUME 93.7 fl (82.0-101.0); MONOCYTE # 0.4 10^3/ul (0.3-0.9); MONOCYTES % 5.2 % (0.0-11.0); NEUTROPHIL # 7.6 10^3/ul (1.6-7.5); NEUTROPHILS % 90.1 % (39.0-77.0); POSITIVE DIFF @See below; WHITE BLOOD COUNT 8.5 10^3/ul (4.8-10.8)
[2017-05-15 05:27] LABS: PLATELET COUNT 32 10^3/UL (140-415)
[2017-05-15 05:44] LABS: PHOSPHORUS 5.3 mg/dl (2.5-4.9)
[2017-05-15 05:49] LABS: ALBUMIN 2.5 g/dl (3.3-4.9); ALBUMIN/GLOBULIN RATIO 0.8; BILIRUBIN,INDIRECT 0.3 mg/dl (0-1.1); BILIRUBIN,TOTAL 0.3 mg/dl (0.2-1.3); CALCIUM 7.8 mg/dl (8.4-10.2); CREATININE 5.29 mg/dl (0.61-1.24); POTASSIUM 4.3 mmol/L (3.5-5.1); TOTAL PROTEIN 5.6 g/dl (6.1-8.1)
[2017-05-15] MEDS: PANTOPRAZOLE 40 MG INJ IV SCH ×2 (05:55→17:21)
[2017-05-15] MEDS: VASOPRESSIN 60 UNIT in DEXTROSE 5% 57 ML IV SCH ×2 (08:08→11:11)
[2017-05-15] MEDS: LISINOPRIL 5 MG TAB PO SCH (09:00)
[2017-05-15] MEDS: ASPIRIN 325 MG TAB PO SCH (09:00)
[2017-05-15] MEDS: AMIODARONE 200 MG TAB NGT SCH (09:00)
[2017-05-15] MEDS: FOLIC ACID 1 MG TAB PO SCH (09:21)
[2017-05-15] MEDS: NYSTATIN SUSP 5 ML CUP PO SCH ×4 (09:21→22:03)
[2017-05-15] MEDS: DEXTROSE 5%-0.9% NACL 1,000 ML IV SCH (09:22)
--- NOTE | 2017-05-15 10:00 | RADRPT ---
PROCEDURE: XR Chest. CLINICAL INDICATION: Shortness of breath. TECHNIQUE: Single frontal view. COMPARISON: 05/12/2017. FINDINGS: The endotracheal tube and nasogastric tube remain in satisfactory position. Pulmonary edema is uncha nged. There is mild atelectasis at the lung bases. The heart is enlarged. Calcification is present in the aorta consistent with atherosclerosis. There is no pleural effusion. There is no pneumothorax. IMPRESSION: 1. No change from 05/12/2017. RPTAT: QQ .Solomon Mulligan MD, MD Date Time Electronically viewed and signed by .Solomon Mulligan MD, MD on 05/15/2017 09:59 .R/
[2017-05-15] MEDS: MIDAZOLAM (DRIP) 50 mg/50 mL 50 ML IV SCH (11:21)
[2017-05-15] MEDS: NORepinephrine 32 MG in DEXTROSE 5% 218 ML IV SCH (11:38)
--- NOTE | 2017-05-15 12:18 | CONS ---
Date/Time of Note Date/Time of Note DATE: 05/15/17 TIME: 12:16 Consult Date/Type/Reason Admit Date/Time Apr 29, 2017 at 19:31 Type of Consultation: Pulm/CCM Ordering Provider: YENNY WINSTON MD Subjective Back on levophed gtt. Not following commands. On HD. Objective Vital Signs Date Time Temp Pulse Resp B/P Pulse Ox O2 Delivery O2 Flow Rate FiO2 05/15/17 11:30 55 19 99/49 100 05/15/17 11:00 Mechanical Ventilator 05/15/17 08:00 98.9 05/15/17 08:00 30 05/12/17 09:00 4.0 Intake and Output 05/14/17 05/14/17 05/15/17 15:00 23:00 07:00 Intake Total 274 ml 301 ml 484 ml Balance 274 ml 301 ml 484 ml Exam HEENT: Neck supple; no JVD; no LAD; + ET tube CVS: RRR, S1 and S2 CHEST: Coarse BS b/l ABD: Soft, NT, + BS EXT: No c/c; + UE and LE edema Results/Medications Result Diagram: 05/15/17 0435 05/15/17 0435 Results 24 hrs Laboratory Tests Test 05/14/17 12:19 05/14/17 20:50 05/15/17 04:35 05/15/17 05:00 Hemoglobin 8.7 #L 8.7 L 8.5 L Hematocrit 25.9 #L 25.3 L 25.3 L White Blood Count 8.6 8.5 Red Blood Count 2.67 #L 2.70 L Mean Corpuscular Volume 94.8 93.7 Mean Corpuscular Hemoglobin 32.6 31.5 Mean Corpuscular Hemoglobin Concent 34.4 33.6 Red Cell Distribution Width 20.4 #H 20.0 H Platelet Count 31 #L 32 L Mean Platelet Volume 12.8 H 12.0 H Neutrophils % 92.7 H 90.1 H Lymphocytes % 2.8 L 4.0 L Monocytes % 3.9 5.2 Eosinophils % 0.0 0.0 Basophils % 0.0 0.0 Nucleated Red Blood Cells % 0.0 0.0 Neutrophils # 8.0 H 7.6 H Lymphocytes # 0.2 L 0.3 L Monocytes # 0.3 0.4 Eosinophils # 0.0 0.0 Basophils # 0.0 0.0 Nucleated Red Blood Cells # 0.0 0.0 Sodium Level 140 Potassium Level 4.3 Chloride Level 104 Carbon Dioxide Level 28 Anion Gap 12 Blood Urea Nitrogen 65 H Creatinine 5.29 H Glucose Level 119 Calcium Level 7.8 L Phosphorus Level 5.3 H Magnesium Level 2.0 Total Bilirubin 0.3 Direct Bilirubin 0.00 Indirect Bilirubin 0.3 Aspartate Amino Transf (AST/SGOT) 38 Alanine Aminotransferase (ALT/SGPT) 90 H Alkaline Phosphatase 110 Total Protein 5.6 L Albumin 2.5 L Globulin 3.10 Albumin/Globulin Ratio 0.80 Blood Gas Specimen Source Blood arterial Arterial Blood Date Drawn 05/15/2017 4:35:00 AM Arterial Blood pH (Temp corrected) 7.490 H Arterial Blood pCO2 (Temp correct) 32.6 L Arterial Blood pO2 (Temp corrected) 88.5 Arterial Blood HCO3 24.3 Arterial Blood Base Excess 1.5 Arterial Blood Oxygen Saturation 96.8 Hunter Test ACCEPTAB Arterial Blood Gas Puncture Site Right Radial Arterial Blood Carboxyhemoglobin 0.8 Arterial Blood Methemoglobin 0.2 Blood Gas A-a O2 Differential 87.1 H Oxyhemoglobin Percent 95.8 Total Hemoglobin 12.2 Blood Gas Temperature 37.0 Blood Gas Respiration Rate 16.0 Blood Gas Actual Respiration Rate 16 Blood Gas Modality VENT - AC FiO2 30.0 Blood Gas Tidal Volume 500.0 Blood Gas Low PEEP Setting 5.0 Blood Gas Notified Whom LW Blood Gas Notified Time 05/15/2017 4:46:00 AM Test 05/15/17 05:42 Lab Scanned Report BLOOD TRANSFUSION Medications Current Medications Folic Acid (Folic Acid) 1 mg DAILY PO Last administered on 05/15/17 09:21; Admin Dose 1 MG; Start 04/30/17 at 09:00 Ondansetron HCl (Zofran Inj) 4 mg Q6H PRN IV NAUSEA AND/OR VOMITING Last administered on 05/03/17 23:24; Admin Dose 4 MG; Start 04/29/17 at 20:00 Nitroglycerin (Nitroglycerin (Sl Tab) 0.4 Mg) 1 tab Q5M PRN SL CHEST PAIN; Start 04/29/17 at 20:00 Acetaminophen (Tylenol Liquid) 650 mg Q6H PRN PO PAIN LEVEL 1-3 OR FEVER; Start 04/29/17 at 20:00 Acetaminophen (Tylenol Tab) 650 mg Q6H PRN PO PAIN LEVEL 1-3 OR FEVER; Start at 20:00 Acetaminophen/ Hydrocodone Bitart ([employer] (5/325)) 1 tab Q6H PRN PO PAIN LEVEL 4 -6; Start 04/29/17 at 20:00 Zolpidem Tartrate (Ambien) 5 mg QHS PRN PO INSOMNIA; Start 04/29/17 at 20:00 Docusate Sodium (Colace) 100 mg Q12H PRN PO CONSTIPATION; Start 04/29/17 at 20: 00 Bisacodyl (Dulcolax) 5 mg DAILY PRN PO CONSTIPATION; Start 04/29/17 at 20:00 Aspirin 325 mg 325 mg DAILY PO Last administered on 05/13/17 11:24; Admin Dose 325 MG; Start 04/30/17 at 09:00 Vasopressin 60 unit/Dextrose 60 ml @ 1.2 mls/hr Q12H IV Last administered on 01:07; Admin Dose 2.4 MLS/HR; Start 04/30/17 at 13:00 Phenylephrine HCl 80 mg/Dextrose 250 ml @ 18.75 mls/ hr TITRATE IV Last administered on 05/04/17 09:57; Admin Dose 31.87 MLS/HR; Start 04/30/17 at 18: 00 Norepinephrine/ Dextrose (Levophed/D5W) 250 ml @ 0.46 mls/hr TITRATE IV Last administered on 05/15/17 11:38; Admin Dose 0.93 MLS/HR; Start 04/30/17 at 18:00 Pantoprazole (Protonix Iv) 40 mg BID@06,18 IV Last administered on 05/15/17 05 :55; Admin Dose 40 MG; Start 05/02/17 at 18:00 Diphenhydramine HCl 25 mg 25 mg Q4H PRN IV ITCHING Last administered on 16:41; Admin Dose 25 MG; Start 05/02/17 at 08:30 Dobutamine HCl/ Dextrose 250 ml @ 4.755 mls/ hr TITRATE IV Last administered on 05/07/17 05:21; Admin Dose 3.804 MLS/HR; Start 05/03/17 at 09:30 Miscellaneous Information 1 ea NOTE XX ; Start 05/03/17 at 13:00 Glucose (Glutose) 15 gm Q15M PRN PO DECREASED GLUCOSE; Start 05/03/17 at 12:45 Glucose (Glutose) 22.5 gm Q15M PRN PO DECREASED GLUCOSE; Start 05/03/17 at 12: 45 Dextrose (D50w Syringe) 25 ml Q15M PRN IV DECREASED GLUCOSE Last administered on 05/03/17 12:48; Admin Dose 25 ML; Start 05/03/17 at 12:45 Dextrose (D50w Syringe) 50 ml Q15M PRN IV DECREASED GLUCOSE; Start 05/03/17 at 12:46 Glucagon (Glucagen) 1 mg Q15M PRN IM DECREASED GLUCOSE; Start 05/03/17 at 12:46 Glucose 15 gm 15 gm Q15M PRN BUCCAL DECREASED GLUCOSE; Start 05/03/17 at 12:46 Midazolam HCl 50 ml @ 1 mls/hr TITRATE IV Last administered on 05/15/17 11:21 ; Admin Dose 3 MLS/HR; Start 05/03/17 at 15:00 Dextrose/Sodium Chloride (D5-NS) 1,000 ml @ 20 mls/hr Q24H IV Last administered on 05/15/17 09:22; Admin Dose 20 MLS/HR; Start 05/03/17 at 16:00 Metoclopramide HCl (Reglan) 5 mg Q6 IV Last administered on 05/15/17 05:54; Admin Dose 5 MG; Start 05/04/17 at 12:00 Nystatin 5 ml 5 ml QID PO Last administered on 05/15/17 09:21; Admin Dose 5 ML ; Start 05/04/17 at 13:00 Fentanyl (Sublimaze) 100 ml @ 5 mls/hr TITRATE IV Last administered on 17:20; Admin Dose 5 MLS/HR; Start 05/06/17 at 08:30 Amiodarone HCl (Cordarone) 400 mg BID NGT Last administered on 05/14/17 21:55 ; Admin Dose 400 MG; Start 05/06/17 at 18:00 Eye Lubricant (Akwa Oint) 1 applic Q4 PRN BOTH EYES dryness Last administered on 05/08/17 08:59; Admin Dose 1 APPLIC; Start 05/07/17 at 13:00 Miscellaneous Information (Pending [facility] Order For Wound Care) This patient otto... PRN PRN XX WOUND CARE; Start 05/07/17 at 13:30 Carvedilol (Coreg) 3.125 mg BID PO Last administered on 05/13/17 23:21; Admin Dose 3.125 MG; Start 05/09/17 at 21:00 Lisinopril (Zestril) 2.5 mg DAILY PO ; Start 05/10/17 at 09:00 Morphine Sulfate 1 mg 1 mg Q4H PRN IV pain; Start 05/10/17 at 09:00 Meropenem/Sodium Chloride (Merrem 500mg/50 ml(Pmx)) 50 ml @ 100 mls/hr Q24H IVPB Last administered on 05/14/17 14:30; Admin Dose 100 MLS/HR; Start at 14:30 Scopolamine 1 patch 1 patch Q72H TRANSDERM Last administered on 05/14/17 17:27 ; Admin Dose 1 PATCH; Start 05/11/17 at 16:30 Sodium Chloride 1,000 ml @ 0 mls/hr Q0M PRN IV TO KEEP SBP ABOVE 90; Start at 08:24 Vancomycin HCl (Vancocin) 250 ml @ 125 mls/hr Q96H IVPB Last administered on 15:45; Admin Dose 125 MLS/HR; Start 05/13/17 at 14:00 Assessment/Plan Chief Complaint/Hosp Course Briefly, this is an 87 yo with HTN, CAD, CABG 1989 4V -0 per family presenting with V.tach/fib arrest likely due to a massive MN with associated refractory cardiogenic shock. Problems: Additional Assessment/Plan IMP: 1. s/p Acute MN presenting with V.Fib arrest 2. 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 Cardiogenic Shock 4. ESRD on HD 5. Ishemic Hepatopathy 6. Anemia 7. Thrombocytopenia RECS: 1. Vent support 2. May need trach, although may not be in patient's best interest 3. Will assess resp muscle function parameters 4. Would D/C right femoral CVC as soon as possible 5. Follow H/H, DIC panel 35 min cc time RY WONG MD May 15, 2017 12:18
--- NOTE | 2017-05-15 12:36 | CONS ---
Date/Time of Note Date/Time of Note DATE: 05/15/17 TIME: 12:31 Assessment/Plan Assessment/Plan Chief Complaint/Hosp Course IMP: 1.Acute AR-now downtrended cardiac enzymes without signs of ongoing myocardial necrosis. Now s/p LHC with patent SVG to RCA and viejas Ramus/LAD. All other grafts occluded 2.Shock-back on Levo 3.VT-now in SR on amio PO 4.resp failure s/p re-intubation 5.renal failure-on HD 6. Leukocytosis 7. Thrombocytopenia-again worsening 8. Shock liver-improving 9. CHF-systolic acute on chronic likely with EF 20% by intial Echo. Most recent echo 35-40% 10. Anemia- acute worsening, ? etiology RP bleed 11. Hypotension-now back on levo Recc: -Continue ICU monitoring -Continue amio PO -Hold BB/ACEI as patient back on pressors -Continue to trend cardiac enzymes -Follow platelet count and would hold asa given anemia requiring transfusion and worsening platelet count -F/U cx data and continue abx's -HD for volume removal as tolerated -transfuse platelets as necessary -wean vent as tolerated Problems: Consultation Date/Type/Reason Admit Date/Time Apr 29, 2017 at 19:31 Initial Consult Date 05/02/17 Type of Consultation: cardiology Referring Provider: YENNY WINSTON MD 24 HR Interval Summary Free Text/Dictation acute AR Exam/Review of Systems Vital Signs Vitals Vital Signs Date Time Temp Pulse Resp B/P Pulse Ox O2 Delivery O2 Flow Rate FiO2 05/15/17 11:30 55 19 99/49 100 05/15/17 11:00 Mechanical Ventilator 05/15/17 08:00 98.9 05/15/17 08:00 30 05/12/17 09:00 4.0 Intake and Output 05/14/17 05/14/17 05/15/17 15:00 23:00 07:00 Intake Total 274 ml 301 ml 484 ml Balance 274 ml 301 ml 484 ml Exam Review of Systems: CONSTITUTIONAL: No fevers, chills. PULMONARY: intubated CARDIOVASCULAR: No chest pain/palpitations GASTROINTESTINAL: No nausea/vomiting. GENITOURINARY: No hematuria/dysuria. MUSCULOSKELETAL: No myagias/arthalgias. PSYCHIATRIC: The patient denies depression. NEUROLOGIC: sedated Constitutional: other (seadted) Psych: no complaints Head: normocephalic ENMT: mucosa pink and moist Neck: jvd (9 cm water), supple Respiratory: diminished breath sounds (at bases/B) Cardiovascular: regular rate and rhythm Gastrointestinal: non-tender, soft Musculoskeletal: muscle tone (normal) Extremities: pitting pedal edema (trace BIlateral) Neurological: other (sedated) Results Result Diagram: 05/15/17 0435 05/15/17 0435 Results 24 hrs Laboratory Tests Test 05/14/17 20:50 05/15/17 04:35 05/15/17 05:00 05/15/17 05:42 White Blood Count 8.6 8.5 Red Blood Count 2.67 #L 2.70 L Hemoglobin 8.7 L 8.5 L Hematocrit 25.3 L 25.3 L Mean Corpuscular Volume 94.8 93.7 Mean Corpuscular Hemoglobin 32.6 31.5 Mean Corpuscular Hemoglobin Concent 34.4 33.6 Red Cell Distribution Width 20.4 #H 20.0 H Platelet Count 31 #L 32 L Mean Platelet Volume 12.8 H 12.0 H Neutrophils % 92.7 H 90.1 H Lymphocytes % 2.8 L 4.0 L Monocytes % 3.9 5.2 Eosinophils % 0.0 0.0 Basophils % 0.0 0.0 Nucleated Red Blood Cells % 0.0 0.0 Neutrophils # 8.0 H 7.6 H Lymphocytes # 0.2 L 0.3 L Monocytes # 0.3 0.4 Eosinophils # 0.0 0.0 Basophils # 0.0 0.0 Nucleated Red Blood Cells # 0.0 0.0 Sodium Level 140 Potassium Level 4.3 Chloride Level 104 Carbon Dioxide Level 28 Anion Gap 12 Blood Urea Nitrogen 65 H Creatinine 5.29 H Glucose Level 119 Calcium Level 7.8 L Phosphorus Level 5.3 H Magnesium Level 2.0 Total Bilirubin 0.3 Direct Bilirubin 0.00 Indirect Bilirubin 0.3 Aspartate Amino Transf (AST/SGOT) 38 Alanine Aminotransferase (ALT/SGPT) 90 H Alkaline Phosphatase 110 Total Protein 5.6 L Albumin 2.5 L Globulin 3.10 Albumin/Globulin Ratio 0.80 Blood Gas Specimen Source Blood arterial Arterial Blood Date Drawn 05/15/2017 4:35:00 AM Arterial Blood pH (Temp corrected) 7.490 H Arterial Blood pCO2 (Temp correct) 32.6 L Arterial Blood pO2 (Temp corrected) 88.5 Arterial Blood HCO3 24.3 Arterial Blood Base Excess 1.5 Arterial Blood Oxygen Saturation 96.8 Hunter Test ACCEPTAB Arterial Blood Gas Puncture Site Right Radial Arterial Blood Carboxyhemoglobin 0.8 Arterial Blood Methemoglobin 0.2 Blood Gas A-a O2 Differential 87.1 H Oxyhemoglobin Percent 95.8 Total Hemoglobin 12.2 Blood Gas Temperature 37.0 Blood Gas Respiration Rate 16.0 Blood Gas Actual Respiration Rate 16 Blood Gas Modality VENT - AC FiO2 30.0 Blood Gas Tidal Volume 500.0 Blood Gas Low PEEP Setting 5.0 Blood Gas Notified Whom LW Blood Gas Notified Time 05/15/2017 4:46:00 AM Lab Scanned Report BLOOD TRANSFUSION Medications Medications Current Medications Folic Acid (Folic Acid) 1 mg DAILY PO Last administered on 05/15/17 09:21; Admin Dose 1 MG; Start 04/30/17 at 09:00 Ondansetron HCl (Zofran Inj) 4 mg Q6H PRN IV NAUSEA AND/OR VOMITING Last administered on 05/03/17 23:24; Admin Dose 4 MG; Start 04/29/17 at 20:00 Nitroglycerin (Nitroglycerin (Sl Tab) 0.4 Mg) 1 tab Q5M PRN SL CHEST PAIN; Start 04/29/17 at 20:00 Acetaminophen (Tylenol Liquid) 650 mg Q6H PRN PO PAIN LEVEL 1-3 OR FEVER; Start 04/29/17 at 20:00 Acetaminophen (Tylenol Tab) 650 mg Q6H PRN PO PAIN LEVEL 1-3 OR FEVER; Start at 20:00 Acetaminophen/ Hydrocodone Bitart ([place] (5/325)) 1 tab Q6H PRN PO PAIN LEVEL 4 -6; Start 04/29/17 at 20:00 Zolpidem Tartrate (Ambien) 5 mg QHS PRN PO INSOMNIA; Start 04/29/17 at 20:00 Docusate Sodium (Colace) 100 mg Q12H PRN PO CONSTIPATION; Start 04/29/17 at 20: 00 Bisacodyl (Dulcolax) 5 mg DAILY PRN PO CONSTIPATION; Start 04/29/17 at 20:00 Aspirin 325 mg 325 mg DAILY PO Last administered on 05/13/17 11:24; Admin Dose 325 MG; Start 04/30/17 at 09:00 Vasopressin 60 unit/Dextrose 60 ml @ 1.2 mls/hr Q12H IV Last administered on 01:07; Admin Dose 2.4 MLS/HR; Start 04/30/17 at 13:00 Phenylephrine HCl 80 mg/Dextrose 250 ml @ 18.75 mls/ hr TITRATE IV Last administered on 05/04/17 09:57; Admin Dose 31.87 MLS/HR; Start 04/30/17 at 18: 00 Norepinephrine/ Dextrose (Levophed/D5W) 250 ml @ 0.46 mls/hr TITRATE IV Last administered on 05/15/17 11:38; Admin Dose 0.93 MLS/HR; Start 04/30/17 at 18:00 Pantoprazole (Protonix Iv) 40 mg BID@06,18 IV Last administered on 05/15/17 05 :55; Admin Dose 40 MG; Start 05/02/17 at 18:00 Diphenhydramine HCl 25 mg 25 mg Q4H PRN IV ITCHING Last administered on 16:41; Admin Dose 25 MG; Start 05/02/17 at 08:30 Dobutamine HCl/ Dextrose 250 ml @ 4.755 mls/ hr TITRATE IV Last administered on 05/07/17 05:21; Admin Dose 3.804 MLS/HR; Start 05/03/17 at 09:30 Miscellaneous Information 1 ea NOTE XX ; Start 05/03/17 at 13:00 Glucose (Glutose) 15 gm Q15M PRN PO DECREASED GLUCOSE; Start 05/03/17 at 12:45 Glucose (Glutose) 22.5 gm Q15M PRN PO DECREASED GLUCOSE; Start 05/03/17 at 12: 45 Dextrose (D50w Syringe) 25 ml Q15M PRN IV DECREASED GLUCOSE Last administered on 05/03/17 12:48; Admin Dose 25 ML; Start 05/03/17 at 12:45 Dextrose (D50w Syringe) 50 ml Q15M PRN IV DECREASED GLUCOSE; Start 05/03/17 at 12:46 Glucagon (Glucagen) 1 mg Q15M PRN IM DECREASED GLUCOSE; Start 05/03/17 at 12:46 Glucose 15 gm 15 gm Q15M PRN BUCCAL DECREASED GLUCOSE; Start 05/03/17 at 12:46 Midazolam HCl 50 ml @ 1 mls/hr TITRATE IV Last administered on 05/15/17 11:21 ; Admin Dose 3 MLS/HR; Start 05/03/17 at 15:00 Dextrose/Sodium Chloride (D5-NS) 1,000 ml @ 20 mls/hr Q24H IV Last administered on 05/15/17 09:22; Admin Dose 20 MLS/HR; Start 05/03/17 at 16:00 Metoclopramide HCl (Reglan) 5 mg Q6 IV Last administered on 05/15/17 05:54; Admin Dose 5 MG; Start 05/04/17 at 12:00 Nystatin 5 ml 5 ml QID PO Last administered on 05/15/17 09:21; Admin Dose 5 ML ; Start 05/04/17 at 13:00 Fentanyl (Sublimaze) 100 ml @ 5 mls/hr TITRATE IV Last administered on 17:20; Admin Dose 5 MLS/HR; Start 05/06/17 at 08:30 Amiodarone HCl (Cordarone) 400 mg BID NGT Last administered on 05/14/17 21:55 ; Admin Dose 400 MG; Start 05/06/17 at 18:00 Eye Lubricant (Akwa Oint) 1 applic Q4 PRN BOTH EYES dryness Last administered on 05/08/17 08:59; Admin Dose 1 APPLIC; Start 05/07/17 at 13:00 Miscellaneous Information (Pending [facility] Order For Wound Care) This patient otto... PRN PRN XX WOUND CARE; Start 05/07/17 at 13:30 Carvedilol (Coreg) 3.125 mg BID PO Last administered on 05/13/17 23:21; Admin Dose 3.125 MG; Start 05/09/17 at 21:00 Lisinopril (Zestril) 2.5 mg DAILY PO ; Start 05/10/17 at 09:00 Morphine Sulfate 1 mg 1 mg Q4H PRN IV pain; Start 05/10/17 at 09:00 Meropenem/Sodium Chloride (Merrem 500mg/50 ml(Pmx)) 50 ml @ 100 mls/hr Q24H IVPB Last administered on 05/14/17 14:30; Admin Dose 100 MLS/HR; Start at 14:30 Scopolamine 1 patch 1 patch Q72H TRANSDERM Last administered on 05/14/17 17:27 ; Admin Dose 1 PATCH; Start 05/11/17 at 16:30 Sodium Chloride 1,000 ml @ 0 mls/hr Q0M PRN IV TO KEEP SBP ABOVE 90; Start at 08:24 Vancomycin HCl (Vancocin) 250 ml @ 125 mls/hr Q96H IVPB Last administered on 15:45; Admin Dose 125 MLS/HR; Start 05/13/17 at 14:00 MARCO KENNEDY May 15, 2017 12:36
--- NOTE | 2017-05-15 13:20 | CONS ---
Date/Time of Note Date/Time of Note DATE: 05/15/17 TIME: 13:19 Assessment/Plan Assessment/Plan Additional Assessment/Plan IMPRESSION: 1. Gastrointestinal bleeding. 2. History of esophageal stricture status post dilatation. 3. Status post coronary angiogram. 4. Renal failure on dialysis. 5. Thrombocytopenia. Platelet count is 31,000 6. Respiratory failure on vent. 7. Shock liver but now the liver function is back to normal. 8. Congestive heart failure, the ejection fraction is 35-40 percent. 9. Ventricular tachycardia, now in sinus rhythm on amiodarone. PLAN: 1. Continue present care. 2. Transfuse on a needed basis, keep the hemoglobin above 8 or 9. 3. Keep the platelet count above 50,000 to prevent bleeding. 4. Avoid blood thinner for the time being. 5. Continue with beta-abdon and GUANACO inhibitor, and continue with proton pump inhibitor. I looked at the color of the stool and it was brown in color. It is not actively bleeding at this point. Her stool for occult blood was +2 days ago Consultation Date/Type/Reason Admit Date/Time Apr 29, 2017 at 19:31 Initial Consult Date 05/02/17 Type of Consultation: cardiology Referring Provider: YENNY WINSTON MD 24 HR Interval Summary Subjective hx not possible: pt non-verbal, pt critical Exam/Review of Systems Vital Signs Vitals Vital Signs Date Time Temp Pulse Resp B/P Pulse Ox O2 Delivery O2 Flow Rate FiO2 05/15/17 12:30 57 25 135/57 100 Mechanical Ventilator 05/15/17 12:00 98.0 05/15/17 08:00 30 05/12/17 09:00 4.0 Intake and Output 05/14/17 05/14/17 05/15/17 15:00 23:00 07:00 Intake Total 274 ml 301 ml 484 ml Balance 274 ml 301 ml 484 ml Exam Constitutional: alert, oriented, well developed Psych: nl mood/affect, no complaints Head: atraumatic, normocephalic Eyes: EOMI, PERRL, nl conjunctiva, nl lids, nl sclera ENMT: nl external ears & nose, nl lips & teeth, nl nasal mucosa & septum Neck: non-tender, supple Respiratory: clear to auscultation, normal air movement Cardiovascular: nl pulses, regular rate and rhythm Gastrointestinal: nl liver, spleen, non-tender, soft Musculoskeletal: nl extremities to inspection, nl gait and stance Extremities: normal pulses Neurological: [employer] II-XII intact, nl mental status, nl speech, nl strength Skin: nl turgor, No rash or lesions Lymph: nl lymph nodes Results Result Diagram: 05/15/17 0435 05/15/17 0435 Results 24 hrs Laboratory Tests Test 05/14/17 20:50 05/15/17 04:35 05/15/17 05:00 05/15/17 05:42 White Blood Count 8.6 8.5 Red Blood Count 2.67 #L 2.70 L Hemoglobin 8.7 L 8.5 L Hematocrit 25.3 L 25.3 L Mean Corpuscular Volume 94.8 93.7 Mean Corpuscular Hemoglobin 32.6 31.5 Mean Corpuscular Hemoglobin Concent 34.4 33.6 Red Cell Distribution Width 20.4 #H 20.0 H Platelet Count 31 #L 32 L Mean Platelet Volume 12.8 H 12.0 H Neutrophils % 92.7 H 90.1 H Lymphocytes % 2.8 L 4.0 L Monocytes % 3.9 5.2 Eosinophils % 0.0 0.0 Basophils % 0.0 0.0 Nucleated Red Blood Cells % 0.0 0.0 Neutrophils # 8.0 H 7.6 H Lymphocytes # 0.2 L 0.3 L Monocytes # 0.3 0.4 Eosinophils # 0.0 0.0 Basophils # 0.0 0.0 Nucleated Red Blood Cells # 0.0 0.0 Sodium Level 140 Potassium Level 4.3 Chloride Level 104 Carbon Dioxide Level 28 Anion Gap 12 Blood Urea Nitrogen 65 H Creatinine 5.29 H Glucose Level 119 Calcium Level 7.8 L Phosphorus Level 5.3 H Magnesium Level 2.0 Total Bilirubin 0.3 Direct Bilirubin 0.00 Indirect Bilirubin 0.3 Aspartate Amino Transf (AST/SGOT) 38 Alanine Aminotransferase (ALT/SGPT) 90 H Alkaline Phosphatase 110 Total Protein 5.6 L Albumin 2.5 L Globulin 3.10 Albumin/Globulin Ratio 0.80 Blood Gas Specimen Source Blood arterial Arterial Blood Date Drawn 05/15/2017 4:35:00 AM Arterial Blood pH (Temp corrected) 7.490 H Arterial Blood pCO2 (Temp correct) 32.6 L Arterial Blood pO2 (Temp corrected) 88.5 Arterial Blood HCO3 24.3 Arterial Blood Base Excess 1.5 Arterial Blood Oxygen Saturation 96.8 Hunter Test ACCEPTAB Arterial Blood Gas Puncture Site Right Radial Arterial Blood Carboxyhemoglobin 0.8 Arterial Blood Methemoglobin 0.2 Blood Gas A-a O2 Differential 87.1 H Oxyhemoglobin Percent 95.8 Total Hemoglobin 12.2 Blood Gas Temperature 37.0 Blood Gas Respiration Rate 16.0 Blood Gas Actual Respiration Rate 16 Blood Gas Modality VENT - AC FiO2 30.0 Blood Gas Tidal Volume 500.0 Blood Gas Low PEEP Setting 5.0 Blood Gas Notified Whom LW Blood Gas Notified Time 05/15/2017 4:46:00 AM Lab Scanned Report BLOOD TRANSFUSION Medications Medications Current Medications Folic Acid (Folic Acid) 1 mg DAILY PO Last administered on 05/15/17 09:21; Admin Dose 1 MG; Start 04/30/17 at 09:00 Ondansetron HCl (Zofran Inj) 4 mg Q6H PRN IV NAUSEA AND/OR VOMITING Last administered on 05/03/17 23:24; Admin Dose 4 MG; Start 04/29/17 at 20:00 Nitroglycerin (Nitroglycerin (Sl Tab) 0.4 Mg) 1 tab Q5M PRN SL CHEST PAIN; Start 04/29/17 at 20:00 Acetaminophen (Tylenol Liquid) 650 mg Q6H PRN PO PAIN LEVEL 1-3 OR FEVER; Start 04/29/17 at 20:00 Acetaminophen (Tylenol Tab) 650 mg Q6H PRN PO PAIN LEVEL 1-3 OR FEVER; Start at 20:00 Acetaminophen/ Hydrocodone Bitart ([place] (5/325)) 1 tab Q6H PRN PO PAIN LEVEL 4 -6; Start 04/29/17 at 20:00 Zolpidem Tartrate (Ambien) 5 mg QHS PRN PO INSOMNIA; Start 04/29/17 at 20:00 Docusate Sodium (Colace) 100 mg Q12H PRN PO CONSTIPATION; Start 04/29/17 at 20: 00 Bisacodyl (Dulcolax) 5 mg DAILY PRN PO CONSTIPATION; Start 04/29/17 at 20:00 Aspirin 325 mg 325 mg DAILY PO Last administered on 05/13/17 11:24; Admin Dose 325 MG; Start 04/30/17 at 09:00; Status Future Hold Vasopressin 60 unit/Dextrose 60 ml @ 1.2 mls/hr Q12H IV Last administered on 01:07; Admin Dose 2.4 MLS/HR; Start 04/30/17 at 13:00 Phenylephrine HCl 80 mg/Dextrose 250 ml @ 18.75 mls/ hr TITRATE IV Last administered on 05/04/17 09:57; Admin Dose 31.87 MLS/HR; Start 04/30/17 at 18: 00 Norepinephrine/ Dextrose (Levophed/D5W) 250 ml @ 0.46 mls/hr TITRATE IV Last administered on 05/15/17 11:38; Admin Dose 0.93 MLS/HR; Start 04/30/17 at 18:00 Pantoprazole (Protonix Iv) 40 mg BID@06,18 IV Last administered on 05/15/17 05 :55; Admin Dose 40 MG; Start 05/02/17 at 18:00 Diphenhydramine HCl 25 mg 25 mg Q4H PRN IV ITCHING Last administered on 16:41; Admin Dose 25 MG; Start 05/02/17 at 08:30 Dobutamine HCl/ Dextrose 250 ml @ 4.755 mls/ hr TITRATE IV Last administered on 05/07/17 05:21; Admin Dose 3.804 MLS/HR; Start 05/03/17 at 09:30 Miscellaneous Information 1 ea NOTE XX ; Start 05/03/17 at 13:00 Glucose (Glutose) 15 gm Q15M PRN PO DECREASED GLUCOSE; Start 05/03/17 at 12:45 Glucose (Glutose) 22.5 gm Q15M PRN PO DECREASED GLUCOSE; Start 05/03/17 at 12: 45 Dextrose (D50w Syringe) 25 ml Q15M PRN IV DECREASED GLUCOSE Last administered on 05/03/17 12:48; Admin Dose 25 ML; Start 05/03/17 at 12:45 Dextrose (D50w Syringe) 50 ml Q15M PRN IV DECREASED GLUCOSE; Start 05/03/17 at 12:46 Glucagon (Glucagen) 1 mg Q15M PRN IM DECREASED GLUCOSE; Start 05/03/17 at 12:46 Glucose 15 gm 15 gm Q15M PRN BUCCAL DECREASED GLUCOSE; Start 05/03/17 at 12:46 Midazolam HCl 50 ml @ 1 mls/hr TITRATE IV Last administered on 05/15/17 11:21 ; Admin Dose 3 MLS/HR; Start 05/03/17 at 15:00 Dextrose/Sodium Chloride (D5-NS) 1,000 ml @ 20 mls/hr Q24H IV Last administered on 05/15/17 09:22; Admin Dose 20 MLS/HR; Start 05/03/17 at 16:00 Metoclopramide HCl (Reglan) 5 mg Q6 IV Last administered on 05/15/17 05:54; Admin Dose 5 MG; Start 05/04/17 at 12:00 Nystatin 5 ml 5 ml QID PO Last administered on 05/15/17 09:21; Admin Dose 5 ML ; Start 05/04/17 at 13:00 Fentanyl (Sublimaze) 100 ml @ 5 mls/hr TITRATE IV Last administered on 17:20; Admin Dose 5 MLS/HR; Start 05/06/17 at 08:30 Eye Lubricant (Akwa Oint) 1 applic Q4 PRN BOTH EYES dryness Last administered on 05/08/17 08:59; Admin Dose 1 APPLIC; Start 05/07/17 at 13:00 Miscellaneous Information (Pending [facility] Order For Wound Care) This patient otto... PRN PRN XX WOUND CARE; Start 05/07/17 at 13:30 Carvedilol (Coreg) 3.125 mg BID PO Last administered on 05/13/17 23:21; Admin Dose 3.125 MG; Start 05/09/17 at 21:00 Lisinopril (Zestril) 2.5 mg DAILY PO ; Start 05/10/17 at 09:00 Morphine Sulfate 1 mg 1 mg Q4H PRN IV pain; Start 05/10/17 at 09:00 Meropenem/Sodium Chloride (Merrem 500mg/50 ml(Pmx)) 50 ml @ 100 mls/hr Q24H IVPB Last administered on 05/14/17 14:30; Admin Dose 100 MLS/HR; Start at 14:30 Scopolamine 1 patch 1 patch Q72H TRANSDERM Last administered on 05/14/17 17:27 ; Admin Dose 1 PATCH; Start 05/11/17 at 16:30 Sodium Chloride 1,000 ml @ 0 mls/hr Q0M PRN IV TO KEEP SBP ABOVE 90; Start at 08:24 Vancomycin HCl (Vancocin) 250 ml @ 125 mls/hr Q96H IVPB Last administered on t 15:45; Admin Dose 125 MLS/HR; Start 05/13/17 at 14:00 Amiodarone HCl (Cordarone) 400 mg DAILY NGT ; Start 05/16/17 at 09:00 KASSI HOLLAND MD May 15, 2017 13:20
[2017-05-15] MEDS: MEROPENEM 500MG/50 ML (PMX) 50 ML IVPB SCH (13:48)
[2017-05-15] MEDS: FENTAnyl (DRIP) 1000 mcg/100mL 100 ML IV SCH (13:49)
--- NOTE | 2017-05-15 13:53 | CONS ---
Date/Time of Note Date/Time of Note DATE: 05/15/17 TIME: 13:51 Assessment/Plan Assessment/Plan Chief Complaint/Hosp Course ID PROGRESS NOTE TOTAL ABX DAY # CURRENT ABX=> VAnco IV + Merrem Cefepim 05/02 - 05/11 24H INTERVAL SUMMARY * s/p LHC yesterday - no significant findings, (-)upper-ext DVT, CXR 05/14 (+). Pulmonary edema is unchanged. * CXR improved LLL PNA GENERAL: VSS, NAD HEENT: ETT/OGT-> Secure NECK: Trach midline, full ROM CHEST: Rise symmetrical without dyspnea on observation ABDOMEN: Soft, EXTREMITIES: Warm,(+) moves extremities SKIN: No diaphoresis, no rash ID ASSESSMENT: 87 yo M admit with: 1. Resolving Sepsis-> s/p Alpha Strep septicemia w/BCX (+) 04/29/17, repeat (-) 2. Acute respiratory failure, re-intubated secondary to significant secretion retention. 3. Pneumonia, possibly aspiration. 4. Acute myocardial infarction. 5. Cardiomyopathy. 6. End-stage renal disease. 7. Anuric 8. History of coronary artery bypass grafting.-> s/p [facility], coronary angiogram with stable disease 9. DVT RUEXT INVASIVES: LUEXT AVF, R-FEM TLC, ETT, OGT, ABX ALLERGY: NKDA TOTAL ABX DAY # CURRENT ABX=> VAnco IV + Merrem Cefepim 05/02 - 05/11 ID PLAN 1. Continue current ABX over the weekend, taper soon, PNA improving, femoral line at risk hence ABX continue 2. Weaning per pulmonary . Problems: Consultation Date/Type/Reason Admit Date/Time Apr 29, 2017 at 19:31 Initial Consult Date 05/02/17 Type of Consultation: ID Referring Provider: YENNY WINSTON MD Exam/Review of Systems Vital Signs Vitals Vital Signs Date Time Temp Pulse Resp B/P Pulse Ox O2 Delivery O2 Flow Rate FiO2 05/15/17 13:40 67 05/15/17 12:30 25 135/57 100 Mechanical Ventilator 05/15/17 12:00 98.0 05/15/17 08:00 30 05/12/17 09:00 4.0 Intake and Output 05/14/17 05/14/17 05/15/17 15:00 23:00 07:00 Intake Total 274 ml 301 ml 484 ml Balance 274 ml 301 ml 484 ml Results Result Diagram: 05/15/17 0435 05/15/17 0435 Results 24 hrs Laboratory Tests Test 05/14/17 20:50 05/15/17 04:35 05/15/17 05:00 05/15/17 05:42 White Blood Count 8.6 8.5 Red Blood Count 2.67 #L 2.70 L Hemoglobin 8.7 L 8.5 L Hematocrit 25.3 L 25.3 L Mean Corpuscular Volume 94.8 93.7 Mean Corpuscular Hemoglobin 32.6 31.5 Mean Corpuscular Hemoglobin Concent 34.4 33.6 Red Cell Distribution Width 20.4 #H 20.0 H Platelet Count 31 #L 32 L Mean Platelet Volume 12.8 H 12.0 H Neutrophils % 92.7 H 90.1 H Lymphocytes % 2.8 L 4.0 L Monocytes % 3.9 5.2 Eosinophils % 0.0 0.0 Basophils % 0.0 0.0 Nucleated Red Blood Cells % 0.0 0.0 Neutrophils # 8.0 H 7.6 H Lymphocytes # 0.2 L 0.3 L Monocytes # 0.3 0.4 Eosinophils # 0.0 0.0 Basophils # 0.0 0.0 Nucleated Red Blood Cells # 0.0 0.0 Sodium Level 140 Potassium Level 4.3 Chloride Level 104 Carbon Dioxide Level 28 Anion Gap 12 Blood Urea Nitrogen 65 H Creatinine 5.29 H Glucose Level 119 Calcium Level 7.8 L Phosphorus Level 5.3 H Magnesium Level 2.0 Total Bilirubin 0.3 Direct Bilirubin 0.00 Indirect Bilirubin 0.3 Aspartate Amino Transf (AST/SGOT) 38 Alanine Aminotransferase (ALT/SGPT) 90 H Alkaline Phosphatase 110 Total Protein 5.6 L Albumin 2.5 L Globulin 3.10 Albumin/Globulin Ratio 0.80 Blood Gas Specimen Source Blood arterial Arterial Blood Date Drawn 05/15/2017 4:35:00 AM Arterial Blood pH (Temp corrected) 7.490 H Arterial Blood pCO2 (Temp correct) 32.6 L Arterial Blood pO2 (Temp corrected) 88.5 Arterial Blood HCO3 24.3 Arterial Blood Base Excess 1.5 Arterial Blood Oxygen Saturation 96.8 Hunter Test ACCEPTAB Arterial Blood Gas Puncture Site Right Radial Arterial Blood Carboxyhemoglobin 0.8 Arterial Blood Methemoglobin 0.2 Blood Gas A-a O2 Differential 87.1 H Oxyhemoglobin Percent 95.8 Total Hemoglobin 12.2 Blood Gas Temperature 37.0 Blood Gas Respiration Rate 16.0 Blood Gas Actual Respiration Rate 16 Blood Gas Modality VENT - AC FiO2 30.0 Blood Gas Tidal Volume 500.0 Blood Gas Low PEEP Setting 5.0 Blood Gas Notified Whom LW Blood Gas Notified Time 05/15/2017 4:46:00 AM Lab Scanned Report BLOOD TRANSFUSION Medications Medications Current Medications Folic Acid (Folic Acid) 1 mg DAILY PO Last administered on 05/15/17 09:21; Admin Dose 1 MG; Start 04/30/17 at 09:00 Ondansetron HCl (Zofran Inj) 4 mg Q6H PRN IV NAUSEA AND/OR VOMITING Last administered on 05/03/17 23:24; Admin Dose 4 MG; Start 04/29/17 at 20:00 Nitroglycerin (Nitroglycerin (Sl Tab) 0.4 Mg) 1 tab Q5M PRN SL CHEST PAIN; Start 04/29/17 at 20:00 Acetaminophen (Tylenol Liquid) 650 mg Q6H PRN PO PAIN LEVEL 1-3 OR FEVER; Start 04/29/17 at 20:00 Acetaminophen (Tylenol Tab) 650 mg Q6H PRN PO PAIN LEVEL 1-3 OR FEVER; Start at 20:00 Acetaminophen/ Hydrocodone Bitart ([place] (5/325)) 1 tab Q6H PRN PO PAIN LEVEL 4 -6; Start 04/29/17 at 20:00 Zolpidem Tartrate (Ambien) 5 mg QHS PRN PO INSOMNIA; Start 04/29/17 at 20:00 Docusate Sodium (Colace) 100 mg Q12H PRN PO CONSTIPATION; Start 04/29/17 at 20: 00 Bisacodyl (Dulcolax) 5 mg DAILY PRN PO CONSTIPATION; Start 04/29/17 at 20:00 Aspirin 325 mg 325 mg DAILY PO Last administered on 05/13/17 11:24; Admin Dose 325 MG; Start 04/30/17 at 09:00; Status Future Hold Vasopressin 60 unit/Dextrose 60 ml @ 1.2 mls/hr Q12H IV Last administered on 01:07; Admin Dose 2.4 MLS/HR; Start 04/30/17 at 13:00 Phenylephrine HCl 80 mg/Dextrose 250 ml @ 18.75 mls/ hr TITRATE IV Last administered on 05/04/17 09:57; Admin Dose 31.87 MLS/HR; Start 04/30/17 at 18: 00 Norepinephrine/ Dextrose (Levophed/D5W) 250 ml @ 0.46 mls/hr TITRATE IV Last administered on 05/15/17 11:38; Admin Dose 0.93 MLS/HR; Start 04/30/17 at 18:00 Pantoprazole (Protonix Iv) 40 mg BID@06,18 IV Last administered on 05/15/17 05 :55; Admin Dose 40 MG; Start 05/02/17 at 18:00 Diphenhydramine HCl 25 mg 25 mg Q4H PRN IV ITCHING Last administered on 16:41; Admin Dose 25 MG; Start 05/02/17 at 08:30 Dobutamine HCl/ Dextrose 250 ml @ 4.755 mls/ hr TITRATE IV Last administered on 05/07/17 05:21; Admin Dose 3.804 MLS/HR; Start 05/03/17 at 09:30 Miscellaneous Information 1 ea NOTE XX ; Start 05/03/17 at 13:00 Glucose (Glutose) 15 gm Q15M PRN PO DECREASED GLUCOSE; Start 05/03/17 at 12:45 Glucose (Glutose) 22.5 gm Q15M PRN PO DECREASED GLUCOSE; Start 05/03/17 at 12: 45 Dextrose (D50w Syringe) 25 ml Q15M PRN IV DECREASED GLUCOSE Last administered on 05/03/17 12:48; Admin Dose 25 ML; Start 05/03/17 at 12:45 Dextrose (D50w Syringe) 50 ml Q15M PRN IV DECREASED GLUCOSE; Start 05/03/17 at 12:46 Glucagon (Glucagen) 1 mg Q15M PRN IM DECREASED GLUCOSE; Start 05/03/17 at 12:46 Glucose 15 gm 15 gm Q15M PRN BUCCAL DECREASED GLUCOSE; Start 05/03/17 at 12:46 Midazolam HCl 50 ml @ 1 mls/hr TITRATE IV Last administered on 05/15/17 11:21 ; Admin Dose 3 MLS/HR; Start 05/03/17 at 15:00 Dextrose/Sodium Chloride (D5-NS) 1,000 ml @ 20 mls/hr Q24H IV Last administered on 05/15/17 09:22; Admin Dose 20 MLS/HR; Start 05/03/17 at 16:00 Metoclopramide HCl (Reglan) 5 mg Q6 IV Last administered on 05/15/17 13:48; Admin Dose 5 MG; Start 05/04/17 at 12:00 Nystatin 5 ml 5 ml QID PO Last administered on 05/15/17 13:48; Admin Dose 5 ML ; Start 05/04/17 at 13:00 Fentanyl (Sublimaze) 100 ml @ 5 mls/hr TITRATE IV Last administered on 13:49; Admin Dose 2.5 MLS/HR; Start 05/06/17 at 08:30 Eye Lubricant (Akwa Oint) 1 applic Q4 PRN BOTH EYES dryness Last administered on 05/08/17 08:59; Admin Dose 1 APPLIC; Start 05/07/17 at 13:00 Miscellaneous Information ([facility]) This patient otto... PRN PRN XX WOUND CARE; Start 05/07/17 at 13:30 Carvedilol (Coreg) 3.125 mg BID PO Last administered on 05/13/17 23:21; Admin Dose 3.125 MG; Start 05/09/17 at 21:00 Lisinopril (Zestril) 2.5 mg DAILY PO ; Start 05/10/17 at 09:00 Morphine Sulfate 1 mg 1 mg Q4H PRN IV pain; Start 05/10/17 at 09:00 Meropenem/Sodium Chloride (Merrem 500mg/50 ml(Pmx)) 50 ml @ 100 mls/hr Q24H IVPB Last administered on 05/15/17 13:48; Admin Dose 100 MLS/HR; Start at 14:30 Scopolamine 1 patch 1 patch Q72H TRANSDERM Last administered on 05/14/17 17:27 ; Admin Dose 1 PATCH; Start 05/11/17 at 16:30 Sodium Chloride 1,000 ml @ 0 mls/hr Q0M PRN IV TO KEEP SBP ABOVE 90; Start at 08:24 Vancomycin HCl (Vancocin) 250 ml @ 125 mls/hr Q96H IVPB Last administered on t 15:45; Admin Dose 125 MLS/HR; Start 05/13/17 at 14:00 Amiodarone HCl (Cordarone) 400 mg DAILY NGT ; Start 05/16/17 at 09:00 ROSA M PORRAS NP May 15, 2017 13:53
--- NOTE | 2017-05-15 14:42 | PN ---
Date/Time of Note Date/Time of Note DATE: 05/15/17 TIME: 14:29 Assessment/Plan VTE Prophylaxis VTE Prophylaxis Intervention: contraindicated VTE Contraindication Reason: bleeding Lines/Catheters IV Catheter Type (from Nrsg): PICC Line Central line still needed: Yes Urinary Cath still in place: Yes Reason Cath still needed: urinary retention Assessment/Plan Chief Complaint/Hosp Course 87 y/o with # s/p V Tachy/V Fib likely secondary to ischemia on Amiodarone and s/p Digoxin, now sinus # Shock likely Cardiogenic with AMI with Tropinins 150 on 3 pressors> downtrending Troponin to 40>15>7>5 likely combination of sepsis with Strep bactermia however repeat bld cx negative. Sputum cx+nelly. Currently off pressors. # Acute DC-now downtrended cardiac enzymes without signs of ongoing myocardial necrosis. Now s/p LHC with patent SVG to RCA and [place] Ramus/LAD. 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, now more edematous s/p daily HD # Acute on chronic heart failure with EF 30% # Shock liver improving LFTs with improving ischemia # Lactic acidosis improved # Respiratory failure on Vent s/p extubation , s/p reintubation # Thrombocytopenia s/p 1 unit platelets likley due to shock liver now improved # Anemia S/P 2 units PRBC # Right arm DVT but could not be on anticoagulation due to thrombocytopenia Recs - HD today - Off pressors - On scoaplamine patch - Hb stable s/p 1 unit PRBC - U/S Left arm negative for DVT - Will assess for daily HD needs - Vent management per Pulmonary - Held ASA for thrombocytopenia - Frequent deep suctioning, HOB elevated, scopalamine patch - C/W Coreg/ Lisnopril, titration per cards thru NG tube - c/w Vancomycin and Meropenam per I.D s - c/w Amiodarone 400 bid - Labs am - Vent management per Pulmonary Problems: Subjective 24 Hr Interval Summary Free Text/Dictation HD today No fevers Off Levophed now Exam/Review of Systems Vital Signs Vitals Vital Signs Date Time Temp Pulse Resp B/P Pulse Ox O2 Delivery O2 Flow Rate FiO2 05/15/17 14:10 61 05/15/17 14:00 27 126/50 100 Mechanical Ventilator 05/15/17 12:00 98.0 05/15/17 08:00 30 05/12/17 09:00 4.0 Intake and Output 05/14/17 05/14/17 05/15/17 15:00 23:00 07:00 Intake Total 274 ml 301 ml 484 ml Balance 274 ml 301 ml 484 ml Exam General: opens eyes, intubated NECK: JVD elevated, no thyromegaly Lymph: no lymphadenopathy HEART: regular with no S3, BRANDI LUNGS:Coarse breath sounds b/l ABD: soft, NT, ND, +BS Neuro: non focal SKIN: chronic changes EXT: Edema arms 2+ left arm> rt Results Result Diagram: 05/15/17 0435 05/15/17 0435 Results 24 hrs Laboratory Tests Test 05/14/17 20:50 05/15/17 04:35 05/15/17 05:00 05/15/17 05:42 White Blood Count 8.6 8.5 Red Blood Count 2.67 #L 2.70 L Hemoglobin 8.7 L 8.5 L Hematocrit 25.3 L 25.3 L Mean Corpuscular Volume 94.8 93.7 Mean Corpuscular Hemoglobin 32.6 31.5 Mean Corpuscular Hemoglobin Concent 34.4 33.6 Red Cell Distribution Width 20.4 #H 20.0 H Platelet Count 31 #L 32 L Mean Platelet Volume 12.8 H 12.0 H Neutrophils % 92.7 H 90.1 H Lymphocytes % 2.8 L 4.0 L Monocytes % 3.9 5.2 Eosinophils % 0.0 0.0 Basophils % 0.0 0.0 Nucleated Red Blood Cells % 0.0 0.0 Neutrophils # 8.0 H 7.6 H Lymphocytes # 0.2 L 0.3 L Monocytes # 0.3 0.4 Eosinophils # 0.0 0.0 Basophils # 0.0 0.0 Nucleated Red Blood Cells # 0.0 0.0 Sodium Level 140 Potassium Level 4.3 Chloride Level 104 Carbon Dioxide Level 28 Anion Gap 12 Blood Urea Nitrogen 65 H Creatinine 5.29 H Glucose Level 119 Calcium Level 7.8 L Phosphorus Level 5.3 H Magnesium Level 2.0 Total Bilirubin 0.3 Direct Bilirubin 0.00 Indirect Bilirubin 0.3 Aspartate Amino Transf (AST/SGOT) 38 Alanine Aminotransferase (ALT/SGPT) 90 H Alkaline Phosphatase 110 Total Protein 5.6 L Albumin 2.5 L Globulin 3.10 Albumin/Globulin Ratio 0.80 Blood Gas Specimen Source Blood arterial Arterial Blood Date Drawn 05/15/2017 4:35:00 AM Arterial Blood pH (Temp corrected) 7.490 H Arterial Blood pCO2 (Temp correct) 32.6 L Arterial Blood pO2 (Temp corrected) 88.5 Arterial Blood HCO3 24.3 Arterial Blood Base Excess 1.5 Arterial Blood Oxygen Saturation 96.8 Hunter Test ACCEPTAB Arterial Blood Gas Puncture Site Right Radial Arterial Blood Carboxyhemoglobin 0.8 Arterial Blood Methemoglobin 0.2 Blood Gas A-a O2 Differential 87.1 H Oxyhemoglobin Percent 95.8 Total Hemoglobin 12.2 Blood Gas Temperature 37.0 Blood Gas Respiration Rate 16.0 Blood Gas Actual Respiration Rate 16 Blood Gas Modality VENT - AC FiO2 30.0 Blood Gas Tidal Volume 500.0 Blood Gas Low PEEP Setting 5.0 Blood Gas Notified Whom LW Blood Gas Notified Time 05/15/2017 4:46:00 AM Lab Scanned Report BLOOD TRANSFUSION Medications Medications Current Medications Folic Acid (Folic Acid) 1 mg DAILY PO Last administered on 05/15/17 09:21; Admin Dose 1 MG; Start 04/30/17 at 09:00 Ondansetron HCl (Zofran Inj) 4 mg Q6H PRN IV NAUSEA AND/OR VOMITING Last administered on 05/03/17 23:24; Admin Dose 4 MG; Start 04/29/17 at 20:00 Nitroglycerin (Nitroglycerin (Sl Tab) 0.4 Mg) 1 tab Q5M PRN SL CHEST PAIN; Start 04/29/17 at 20:00 Acetaminophen (Tylenol Liquid) 650 mg Q6H PRN PO PAIN LEVEL 1-3 OR FEVER; Start 04/29/17 at 20:00 Acetaminophen (Tylenol Tab) 650 mg Q6H PRN PO PAIN LEVEL 1-3 OR FEVER; Start at 20:00 Acetaminophen/ Hydrocodone Bitart ([place] (5/325)) 1 tab Q6H PRN PO PAIN LEVEL 4 -6; Start 04/29/17 at 20:00 Zolpidem Tartrate (Ambien) 5 mg QHS PRN PO INSOMNIA; Start 04/29/17 at 20:00 Docusate Sodium (Colace) 100 mg Q12H PRN PO CONSTIPATION; Start 04/29/17 at 20: 00 Bisacodyl (Dulcolax) 5 mg DAILY PRN PO CONSTIPATION; Start 04/29/17 at 20:00 Aspirin 325 mg 325 mg DAILY PO Last administered on 05/13/17 11:24; Admin Dose 325 MG; Start 04/30/17 at 09:00; Status Future Hold Vasopressin 60 unit/Dextrose 60 ml @ 1.2 mls/hr Q12H IV Last administered on 01:07; Admin Dose 2.4 MLS/HR; Start 04/30/17 at 13:00 Phenylephrine HCl 80 mg/Dextrose 250 ml @ 18.75 mls/ hr TITRATE IV Last administered on 05/04/17 09:57; Admin Dose 31.87 MLS/HR; Start 04/30/17 at 18: 00 Norepinephrine/ Dextrose (Levophed/D5W) 250 ml @ 0.46 mls/hr TITRATE IV Last administered on 05/15/17 11:38; Admin Dose 0.93 MLS/HR; Start 04/30/17 at 18:00 Pantoprazole (Protonix Iv) 40 mg BID@06,18 IV Last administered on 05/15/17 05 :55; Admin Dose 40 MG; Start 05/02/17 at 18:00 Diphenhydramine HCl 25 mg 25 mg Q4H PRN IV ITCHING Last administered on 16:41; Admin Dose 25 MG; Start 05/02/17 at 08:30 Dobutamine HCl/ Dextrose 250 ml @ 4.755 mls/ hr TITRATE IV Last administered on 05/07/17 05:21; Admin Dose 3.804 MLS/HR; Start 05/03/17 at 09:30 Miscellaneous Information 1 ea NOTE XX ; Start 05/03/17 at 13:00 Glucose (Glutose) 15 gm Q15M PRN PO DECREASED GLUCOSE; Start 05/03/17 at 12:45 Glucose (Glutose) 22.5 gm Q15M PRN PO DECREASED GLUCOSE; Start 05/03/17 at 12: 45 Dextrose (D50w Syringe) 25 ml Q15M PRN IV DECREASED GLUCOSE Last administered on 05/03/17 12:48; Admin Dose 25 ML; Start 05/03/17 at 12:45 Dextrose (D50w Syringe) 50 ml Q15M PRN IV DECREASED GLUCOSE; Start 05/03/17 at 12:46 Glucagon (Glucagen) 1 mg Q15M PRN IM DECREASED GLUCOSE; Start 05/03/17 at 12:46 Glucose 15 gm 15 gm Q15M PRN BUCCAL DECREASED GLUCOSE; Start 05/03/17 at 12:46 Midazolam HCl 50 ml @ 1 mls/hr TITRATE IV Last administered on 05/15/17 11:21 ; Admin Dose 3 MLS/HR; Start 05/03/17 at 15:00 Dextrose/Sodium Chloride (D5-NS) 1,000 ml @ 20 mls/hr Q24H IV Last administered on 05/15/17 09:22; Admin Dose 20 MLS/HR; Start 05/03/17 at 16:00 Metoclopramide HCl (Reglan) 5 mg Q6 IV Last administered on 05/15/17 13:48; Admin Dose 5 MG; Start 05/04/17 at 12:00 Nystatin 5 ml 5 ml QID PO Last administered on 05/15/17 13:48; Admin Dose 5 ML ; Start 05/04/17 at 13:00 Fentanyl (Sublimaze) 100 ml @ 5 mls/hr TITRATE IV Last administered on 13:49; Admin Dose 2.5 MLS/HR; Start 05/06/17 at 08:30 Eye Lubricant (Akwa Oint) 1 applic Q4 PRN BOTH EYES dryness Last administered on 05/08/17 08:59; Admin Dose 1 APPLIC; Start 05/07/17 at 13:00 Miscellaneous Information (Pending [facility] Order For Wound Care) This patient otto... PRN PRN XX WOUND CARE; Start 05/07/17 at 13:30 Carvedilol (Coreg) 3.125 mg BID PO Last administered on 05/13/17 23:21; Admin Dose 3.125 MG; Start 05/09/17 at 21:00 Lisinopril (Zestril) 2.5 mg DAILY PO ; Start 05/10/17 at 09:00 Morphine Sulfate 1 mg 1 mg Q4H PRN IV pain; Start 05/10/17 at 09:00 Meropenem/Sodium Chloride (Merrem 500mg/50 ml(Pmx)) 50 ml @ 100 mls/hr Q24H IVPB Last administered on 05/15/17 13:48; Admin Dose 100 MLS/HR; Start at 14:30 Scopolamine 1 patch 1 patch Q72H TRANSDERM Last administered on 05/14/17 17:27 ; Admin Dose 1 PATCH; Start 05/11/17 at 16:30 Sodium Chloride 1,000 ml @ 0 mls/hr Q0M PRN IV TO KEEP SBP ABOVE 90; Start at 08:24 Vancomycin HCl (Vancocin) 250 ml @ 125 mls/hr Q96H IVPB Last administered on 15:45; Admin Dose 125 MLS/HR; Start 05/13/17 at 14:00 Amiodarone HCl (Cordarone) 400 mg DAILY NGT ; Start 05/16/17 at 09:00 ARNULFO BLEVINS MD May 15, 2017 14:39
[2017-05-16] VITALS (84 sets, daily range): BP systolic 64–117; BP diastolic 30–81; PULSE 59–78; RESP 0–25
[2017-05-16] MEDS: VASOPRESSIN 60 UNIT in DEXTROSE 5% 57 ML IV SCH ×2 (00:55→13:00)
[2017-05-16] MEDS: METOCLOPRAMIDE 10 MG INJ IV SCH ×5 (00:57→23:28)
[2017-05-16] MEDS: ALBUTEROL 18 GM INHALER INH SCH ×4 (01:24→19:39)
[2017-05-16] MEDS: IPRATROPIUM (HFA) 12.9 GM INHALER INH SCH ×4 (01:24→19:39)
[2017-05-16] MEDS: MIDAZOLAM (DRIP) 50 mg/50 mL 50 ML IV SCH (05:10)
[2017-05-16] MEDS: PANTOPRAZOLE 40 MG INJ IV SCH ×2 (05:10→18:32)
[2017-05-16] MEDS: FENTAnyl (DRIP) 1000 mcg/100mL 100 ML IV SCH (05:11)
[2017-05-16 05:54] LABS: ABNORMAL IP MESSAGE 1; BASOPHILS % 0.1 % (0.0-2.0); EOSINOPHILS # 0.1 10^3/ul (0.0-0.5); EOSINOPHILS % 0.4 % (0.0-7.0); HEMATOCRIT 27.7 % (42.0-52.0); LYMPHOCYTES # 0.4 10^3/ul (0.8-2.9); LYMPHOCYTES % 3.7 % (15.0-51.0); MEAN CORPUSCULAR HEMOGLOBIN 30.9 pg (29.0-33.0); MEAN CORPUSCULAR HGB CONC 32.5 g/dl (32.0-37.0); MEAN CORPUSCULAR VOLUME 95.2 fl (82.0-101.0); MEAN PLATELET VOLUME 12.4 fl (7.4-10.4); MONOCYTE # 0.6 10^3/ul (0.3-0.9); MONOCYTES % 4.9 % (0.0-11.0); NEUTROPHIL # 10.6 10^3/ul (1.6-7.5); NEUTROPHILS % 90.4 % (39.0-77.0); PLATELET COUNT 33 10^3/UL (140-415); POSITIVE DIFF @See below; RED BLOOD COUNT 2.91 10^6/ul (4.70-6.10); RED CELL DISTRIBUTION WIDTH 19.6 % (11.5-14.5); WHITE BLOOD COUNT 11.7 10^3/ul (4.8-10.8)
[2017-05-16 06:25] LABS: ALBUMIN 2.6 g/dl (3.3-4.9); ALBUMIN/GLOBULIN RATIO 0.78; BILIRUBIN,INDIRECT 0.3 mg/dl (0-1.1); BILIRUBIN,TOTAL 0.3 mg/dl (0.2-1.3); CALCIUM 7.8 mg/dl (8.4-10.2); CREATININE 4.21 mg/dl (0.61-1.24); POTASSIUM 3.8 mmol/L (3.5-5.1); TOTAL PROTEIN 5.9 g/dl (6.1-8.1)
[2017-05-16 06:47] LABS: MAGNESIUM 1.9 mg/dl (1.7-2.5)
--- NOTE | 2017-05-16 07:18 | OPR ---
DATE OF OPERATION: 05/13/2017 SURGEON: Jackson Montgomery MD. OPERATION PERFORMED: 1. Left heart catheterization. 2. Coronary angiography. 3. Bypass graft angiography including LOGAN. 4. Angiography. 5. Perclose closure device to the left femoral artery. 6. Moderate conscious sedation. INDICATION: Acute myocardial infarction. Cardiogenic shock. ANESTHESIA: General, as well as local. Conscious and local. BRIEF HISTORY AND HOSPITAL COURSE: Mr. Quiñones is an 87-year-old with past history of coronary disease, status post-coronary bypass graft surgery in 1988. Hypertension, dyslipidemia, who initially presented with ventricular tachycardia, required cardioversion. Had positive troponin. Admitted to the ICU, medically managed had significantly increased troponin's greater than 150. End-stage renal disease, receiving hemodialysis, has made some recovery with improvement in blood pressures, but remains on pressor support. Thud brought to the cardiac laboratory animal caretaker to assess for ongoing significant coronary disease leading to hypotension, increased troponin, and decreased EF. OPERATIVE PROCEDURE: After informed consent was obtained, patient was brought to the [facility] Cardiac Radiation Therapist, where his left femoral area was prepped and draped in the sterile fashion. 2 percent lidocaine was instill in the left femoral artery to achieve adequate local anesthesia. Using the modified Seldinger technique, the femoral artery was cannulated and a 6-Jama[place] arterial sheath was placed. A 6-[place] JL4 catheter was used to cath contrast injection. Multiple views of the left coronary artery were obtained. JL-4 guide wire and a JR4 was used to cath the right coronary to ostium with contrast injection, with multiple views of the right coronary artery. JR4 was then used to cannulate the saphenous vein graft supplying the right coronary artery. After which contrast injection and multiple view angiographs were taken and then used to be placed in the subclavian. Subclavian angiography was undertaken and additionally nonselective views of the LOGAN were taken, it was not grafted. The same used to place in the right subclavian and once again to visualize the Miya, which was not grafted. Subsequently, at this time it was removed and an LCB was used to find the 2 stumps. Two grafts were occluded. Subsequently, this was removed. A 6-[place] pigtail was passed into the left ventricle. Left end-diastolic pressure measured. LV-gram was undertaken, then pullback across aortic valve placed and placed in aortic root where angiography was undertaken and subsequently removed. Subsequently, final angiographic images of the right femoral arterial insertion site was obtained revealing the sheath well placed in femoral artery. Subsequently a 6-[place] Perclose device left to complete procedure. There were no known complications. OPERATIVE FINDINGS AT SURGERY: 1. Coronary angiography: Left main 4 mm, with a distal 30 percent stenosis. The true LAD appears to be flush occluded at its ostium and there is either a diagonal branch, low branch diagonal, or ramus branch that goes toward the apex and give off septals. Also, possibly a dual LAD system, it does stop just short of the apex. There is approximately a 30-40 percent stenosis in its midportion. There was a widely patent stent. The circumflex appears to be 100 percent occluded shortly after its takeoff and seen to have some obtuse marginal branches that fill the right collateral flow and come up faintly. The right coronary artery shortly after its takeoff has a 3.5 mm vessel takeoff and is 100 percent occluded and gives some atrial branches. 2. Bypass graft angiography: Showed the patient to have a widely patent saphenous vein graft to distal right coronary artery which then covers the far territory and including ascending branches toward the apex of the LV. It is a dominant vessel and gives off a PDA off of the [place] right and is visualized 2.5 mm. No significant stenosis, and a very long sizeable posterolateral branch as noted earlier. Superior branch being 2.5 mm stenosis, inferior branch being a 2 mm vessel and having 50 percent stenosis. In addition, there were 2 other stumps found. The patient's subclavian angiography was done revealing the patient to have a LOGAN which has not previously been grafted. Right subclavian angiography was undertaken revealing no significant stenosis, and a Miya that has not been grafted. 3. Measurement of left in the LV gram and LVEDP. LVEDP of 29. No significant aortic stenosis by gradient. 1+ mitral regurgitation. Left ventricular ejection fraction approximately 40 percent. With apical severe hypokinesis to akinesis. 4. Total fluoro time 16.4 minutes. TOTAL CONTRAST: 300 mL. IMPRESSION: 1. Multivessel [place] obstructive coronary disease involving 100 percent occlusion in its true [place] LAD. 100 occlusion of the circumflex shortly after takeoff. 100 percent occluded right coronary shortly after takeoff. 2. Widely patent ramus/dual LAD with a stent in its midportion, which is widely patent. 3. Widely patent saphenous vein graft to right coronary artery that covered a large territory including toward apex of LAD of left ventricle. 4. Occluded saphenous vein graft x2. 5. Mild to moderate depressed left ventricular systolic function with wall motion abnormalities. 6. Elevated left heart filling pressures. 7. No significant aortic stenosis by gradient. RECOMMENDATIONS: In light of procedure findings at time would: 1. Maintain patient on maximal medical therapy if possible, given thrombocytopenia. 2. Wean patient's pressures as tolerated. 3. Hemodialysis for additional volume removal. 4. Continue the patient's ventilator support ulcer. Dictated By: Jackson Montgomery MD /valarie/madelyn /Document#: [id number] LUIS A
[2017-05-16] MEDS: LISINOPRIL 5 MG TAB PO SCH (09:00)
[2017-05-16] MEDS: NYSTATIN SUSP 5 ML CUP PO SCH ×4 (09:52→20:21)
[2017-05-16] MEDS: FOLIC ACID 1 MG TAB PO SCH (09:53)
[2017-05-16] MEDS: AMIODARONE 200 MG TAB NGT SCH (09:53)
--- NOTE | 2017-05-16 10:02 | CONS ---
Date/Time of Note Date/Time of Note DATE: 05/16/17 TIME: 09:57 Assessment/Plan Assessment/Plan Chief Complaint/Hosp Course IMP: 1.Acute PA-now downtrended cardiac enzymes without signs of ongoing myocardial necrosis. Now s/p LHC with patent SVG to RCA and [facility] Ramus/LAD. All other grafts occluded 2.Shock-back on Levo 3.VT-now in SR on amio PO 4.resp failure s/p re-intubation 5.renal failure-on HD 6. Leukocytosis 7. Thrombocytopenia-again worsening 8. Shock liver-improving 9. CHF-systolic acute on chronic likely with EF 20% by intial Echo. Most recent echo 35-40% 10. Anemia- acute worsening, ? etiology RP bleed 11. Hypotension-now back on levo Recc: -Continue ICU monitoring -Continue amio PO -Hold BB/ACEI as patient back on pressors -Continue to trend cardiac enzymes -Follow platelet count and would hold asa given anemia requiring transfusion and worsening platelet count requiring transfusion -F/U cx data and continue abx's -HD for volume removal as tolerated -to receice transfusion of platelets today -wean vent as tolerated Problems: Consultation Date/Type/Reason Admit Date/Time Apr 29, 2017 at 19:31 Initial Consult Date 05/02/17 Type of Consultation: cardiology Reason for Consultation VT/acute mi Referring Provider: YENNY WINSTON MD Exam/Review of Systems Vital Signs Vitals Vital Signs Date Time Temp Pulse Resp B/P Pulse Ox O2 Delivery O2 Flow Rate FiO2 05/16/17 09:45 72 16 100 05/16/17 06:15 97/35 Mechanical Ventilator 05/16/17 04:00 98.8 05/16/17 00:00 30 05/12/17 09:00 4.0 Intake and Output 05/15/17 05/15/17 05/16/17 15:00 23:00 07:00 Intake Total 778.86 ml 327.9 ml 331.94 ml Output Total 2500 ml Balance -1721.14 ml 327.9 ml 331.94 ml Exam Review of Systems: CONSTITUTIONAL: No fevers, chills. PULMONARY: No sob CARDIOVASCULAR: No chest pain/palpitations GASTROINTESTINAL: No nausea/vomiting. GENITOURINARY: No hematuria/dysuria. MUSCULOSKELETAL: No myagias/arthalgias. PSYCHIATRIC: The patient denies depression. NEUROLOGIC: No weakness Constitutional: other (seadted) Head: normocephalic ENMT: intubated Neck: jvd (9 cm water), supple Respiratory: other (upper airway rhonchi) Cardiovascular: regular rate and rhythm Gastrointestinal: non-tender, soft Musculoskeletal: muscle tone (njormal) Extremities: edema (bilaterl upper and lower extremity) Neurological: other (No focal deficits) Results Result Diagram: 05/16/1739905/16/17399 Results 24 hrs Laboratory Tests Test 05/16/17 04:00 White Blood Count 11.7 #H Red Blood Count 2.91 L Hemoglobin 9.0 L Hematocrit 27.7 L Mean Corpuscular Volume 95.2 Mean Corpuscular Hemoglobin 30.9 Mean Corpuscular Hemoglobin Concent 32.5 Red Cell Distribution Width 19.6 H Platelet Count 33 L Mean Platelet Volume 12.4 H Neutrophils % 90.4 H Lymphocytes % 3.7 L Monocytes % 4.9 Eosinophils % 0.4 Basophils % 0.1 Nucleated Red Blood Cells % 0.0 Neutrophils # 10.6 H Lymphocytes # 0.4 L Monocytes # 0.6 Eosinophils # 0.1 Basophils # 0.0 Nucleated Red Blood Cells # 0.0 Sodium Level 141 Potassium Level 3.8 Chloride Level 103 Carbon Dioxide Level 30 Anion Gap 12 Blood Urea Nitrogen 46 #H Creatinine 4.21 #H Glucose Level 117 Calcium Level 7.8 L Phosphorus Level 4.0 Magnesium Level 1.9 Total Bilirubin 0.3 Direct Bilirubin 0.00 Indirect Bilirubin 0.3 Aspartate Amino Transf (AST/SGOT) 39 Alanine Aminotransferase (ALT/SGPT) 94 H Alkaline Phosphatase 197 #H Total Protein 5.9 L Albumin 2.6 L Globulin 3.30 H Albumin/Globulin Ratio 0.78 Medications Medications Current Medications Folic Acid (Folic Acid) 1 mg DAILY PO Last administered on 05/16/17 09:53; Admin Dose 1 MG; Start 04/30/17 at 09:00 Ondansetron HCl (Zofran Inj) 4 mg Q6H PRN IV NAUSEA AND/OR VOMITING Last administered on 05/03/17 23:24; Admin Dose 4 MG; Start 04/29/17 at 20:00 Nitroglycerin (Nitroglycerin (Sl Tab) 0.4 Mg) 1 tab Q5M PRN SL CHEST PAIN; Start 04/29/17 at 20:00 Acetaminophen (Tylenol Liquid) 650 mg Q6H PRN PO PAIN LEVEL 1-3 OR FEVER; Start 04/29/17 at 20:00 Acetaminophen (Tylenol Tab) 650 mg Q6H PRN PO PAIN LEVEL 1-3 OR FEVER; Start at 20:00 Acetaminophen/ Hydrocodone Bitart ([place] (5/325)) 1 tab Q6H PRN PO PAIN LEVEL 4 -6; Start 04/29/17 at 20:00 Zolpidem Tartrate (Ambien) 5 mg QHS PRN PO INSOMNIA; Start 04/29/17 at 20:00 Docusate Sodium (Colace) 100 mg Q12H PRN PO CONSTIPATION; Start 04/29/17 at 20: 00 Bisacodyl (Dulcolax) 5 mg DAILY PRN PO CONSTIPATION; Start 04/29/17 at 20:00 Aspirin 325 mg 325 mg DAILY PO Last administered on 05/13/17 11:24; Admin Dose 325 MG; Start 04/30/17 at 09:00; Status Future Hold Vasopressin 60 unit/Dextrose 60 ml @ 1.2 mls/hr Q12H IV Last administered on 01:07; Admin Dose 2.4 MLS/HR; Start 04/30/17 at 13:00 Phenylephrine HCl 80 mg/Dextrose 250 ml @ 18.75 mls/ hr TITRATE IV Last administered on 05/04/17 09:57; Admin Dose 31.87 MLS/HR; Start 04/30/17 at 18: 00 Norepinephrine/ Dextrose (Levophed/D5W) 250 ml @ 0.46 mls/hr TITRATE IV Last administered on 05/15/17 11:38; Admin Dose 0.93 MLS/HR; Start 04/30/17 at 18:00 Pantoprazole (Protonix Iv) 40 mg BID@06,18 IV Last administered on 05/16/17 05 :10; Admin Dose 40 MG; Start 05/02/17 at 18:00 Diphenhydramine HCl 25 mg 25 mg Q4H PRN IV ITCHING Last administered on 16:41; Admin Dose 25 MG; Start 05/02/17 at 08:30 Dobutamine HCl/ Dextrose 250 ml @ 4.755 mls/ hr TITRATE IV Last administered on 05/07/17 05:21; Admin Dose 3.804 MLS/HR; Start 05/03/17 at 09:30 Miscellaneous Information 1 ea NOTE XX ; Start 05/03/17 at 13:00 Glucose (Glutose) 15 gm Q15M PRN PO DECREASED GLUCOSE; Start 05/03/17 at 12:45 Glucose (Glutose) 22.5 gm Q15M PRN PO DECREASED GLUCOSE; Start 05/03/17 at 12: 45 Dextrose (D50w Syringe) 25 ml Q15M PRN IV DECREASED GLUCOSE Last administered on 05/03/17 12:48; Admin Dose 25 ML; Start 05/03/17 at 12:45 Dextrose (D50w Syringe) 50 ml Q15M PRN IV DECREASED GLUCOSE; Start 05/03/17 at 12:46 Glucagon (Glucagen) 1 mg Q15M PRN IM DECREASED GLUCOSE; Start 05/03/17 at 12:46 Glucose 15 gm 15 gm Q15M PRN BUCCAL DECREASED GLUCOSE; Start 05/03/17 at 12:46 Midazolam HCl 50 ml @ 1 mls/hr TITRATE IV Last administered on 05/16/17 05:10 ; Admin Dose 3 MLS/HR; Start 05/03/17 at 15:00 Dextrose/Sodium Chloride (D5-NS) 1,000 ml @ 20 mls/hr Q24H IV Last administered on 05/15/17 09:22; Admin Dose 20 MLS/HR; Start 05/03/17 at 16:00 Metoclopramide HCl (Reglan) 5 mg Q6 IV Last administered on 05/16/17 05:10; Admin Dose 5 MG; Start 05/04/17 at 12:00 Nystatin 5 ml 5 ml QID PO Last administered on 05/16/17 09:52; Admin Dose 5 ML ; Start 05/04/17 at 13:00 Fentanyl (Sublimaze) 100 ml @ 5 mls/hr TITRATE IV Last administered on 05:11; Admin Dose 4 MLS/HR; Start 05/06/17 at 08:30 Eye Lubricant (Akwa Oint) 1 applic Q4 PRN BOTH EYES dryness Last administered on 05/08/17 08:59; Admin Dose 1 APPLIC; Start 05/07/17 at 13:00 Miscellaneous Information (Pending Santyl Order For Wound Care) This patient otto... PRN PRN XX WOUND CARE; Start 05/07/17 at 13:30 Carvedilol (Coreg) 3.125 mg BID PO Last administered on 05/13/17 23:21; Admin Dose 3.125 MG; Start 05/09/17 at 21:00 Lisinopril (Zestril) 2.5 mg DAILY PO ; Start 05/10/17 at 09:00 Morphine Sulfate 1 mg 1 mg Q4H PRN IV pain; Start 05/10/17 at 09:00 Meropenem/Sodium Chloride (Merrem 500mg/50 ml(Pmx)) 50 ml @ 100 mls/hr Q24H IVPB Last administered on 05/15/17 13:48; Admin Dose 100 MLS/HR; Start at 14:30 Scopolamine 1 patch 1 patch Q72H TRANSDERM Last administered on 05/14/17 17:27 ; Admin Dose 1 PATCH; Start 05/11/17 at 16:30 Sodium Chloride 1,000 ml @ 0 mls/hr Q0M PRN IV TO KEEP SBP ABOVE 90; Start at 08:24 Vancomycin HCl (Vancocin) 250 ml @ 125 mls/hr Q96H IVPB Last administered on 15:45; Admin Dose 125 MLS/HR; Start 05/13/17 at 14:00 Amiodarone HCl (Cordarone) 400 mg DAILY NGT Last administered on 05/16/17 09: 53; Admin Dose 400 MG; Start 05/16/17 at 09:00 MARCO KENNEDY May 16, 2017 10:02
--- NOTE | 2017-05-16 11:24 | CONS ---
Date/Time of Note Date/Time of Note DATE: 05/16/17 TIME: 11:07 Assessment/Plan Assessment/Plan Chief Complaint/Hosp Course #Thrombocytopenia -now in 30's. pt now bleeding from oropharynx -ASA on hold for platelet count < 50K -will transfuse 1 units of platelets today -will continue to check daily DIC panel and transfuse 1 unit cryo if fibrinogen is < 150. fibrinogen is currently around 300 -pt was able to tolerate cardiac cath without bleeding issues #Anemia - Hg 9.0 -continue to monitor #Cardiogenic shock with shock liver -management per cardiology -pt is s/p left heart cath -back on Levophed #ESRD wit acidosis -continue HD as tolerated. currently blood pressure is very labile #Respiratory failure -patient remains intubated -management per pulmonary Problems: Consultation Date/Type/Reason Admit Date/Time Apr 29, 2017 at 19:31 Initial Consult Date 05/02/17 Type of Consultation: Hematology Reason for Consultation thrombocytopenia Referring Provider: YENNY WINSTON MD 24 HR Interval Summary Free Text/Dictation patient remains intubated on low dose pressors. oozing from mouth Subjective hx not possible: pt critical, pt critical status Exam/Review of Systems Vital Signs Vitals Vital Signs Date Time Temp Pulse Resp B/P Pulse Ox O2 Delivery O2 Flow Rate FiO2 05/16/17 09:45 72 16 100 05/16/17 06:15 97/35 Mechanical Ventilator 05/16/17 04:00 98.8 05/16/17 00:00 30 05/12/17 09:00 4.0 Intake and Output 05/15/17 05/15/17 05/16/17 15:00 23:00 07:00 Intake Total 778.86 ml 327.9 ml 331.94 ml Output Total 2500 ml Balance -1721.14 ml 327.9 ml 331.94 ml Exam Constitutional: frail Psych: confusion Head: normocephalic Eyes: nl conjunctiva ENMT: intubated, other (with blood from oropharynx) Respiratory: clear to auscultation Cardiovascular: regular rate and rhythm Gastrointestinal: soft Extremities: other (edema) Results Result Diagram: 05/16/17 0400 05/16/17 0400 Results 24 hrs Laboratory Tests Test 05/16/17 04:00 White Blood Count 11.7 #H Red Blood Count 2.91 L Hemoglobin 9.0 L Hematocrit 27.7 L Mean Corpuscular Volume 95.2 Mean Corpuscular Hemoglobin 30.9 Mean Corpuscular Hemoglobin Concent 32.5 Red Cell Distribution Width 19.6 H Platelet Count 33 L Mean Platelet Volume 12.4 H Neutrophils % 90.4 H Lymphocytes % 3.7 L Monocytes % 4.9 Eosinophils % 0.4 Basophils % 0.1 Nucleated Red Blood Cells % 0.0 Neutrophils # 10.6 H Lymphocytes # 0.4 L Monocytes # 0.6 Eosinophils # 0.1 Basophils # 0.0 Nucleated Red Blood Cells # 0.0 Sodium Level 141 Potassium Level 3.8 Chloride Level 103 Carbon Dioxide Level 30 Anion Gap 12 Blood Urea Nitrogen 46 #H Creatinine 4.21 #H Glucose Level 117 Calcium Level 7.8 L Phosphorus Level 4.0 Magnesium Level 1.9 Total Bilirubin 0.3 Direct Bilirubin 0.00 Indirect Bilirubin 0.3 Aspartate Amino Transf (AST/SGOT) 39 Alanine Aminotransferase (ALT/SGPT) 94 H Alkaline Phosphatase 197 #H Total Protein 5.9 L Albumin 2.6 L Globulin 3.30 H Albumin/Globulin Ratio 0.78 Medications Medications Current Medications Folic Acid (Folic Acid) 1 mg DAILY PO Last administered on 05/16/17 09:53; Admin Dose 1 MG; Start 04/30/17 at 09:00 Ondansetron HCl (Zofran Inj) 4 mg Q6H PRN IV NAUSEA AND/OR VOMITING Last administered on 05/03/17 23:24; Admin Dose 4 MG; Start 04/29/17 at 20:00 Nitroglycerin (Nitroglycerin (Sl Tab) 0.4 Mg) 1 tab Q5M PRN SL CHEST PAIN; Start 04/29/17 at 20:00 Acetaminophen (Tylenol Liquid) 650 mg Q6H PRN PO PAIN LEVEL 1-3 OR FEVER; Start 04/29/17 at 20:00 Acetaminophen (Tylenol Tab) 650 mg Q6H PRN PO PAIN LEVEL 1-3 OR FEVER; Start at 20:00 Acetaminophen/ Hydrocodone Bitart ([place] (5/325)) 1 tab Q6H PRN PO PAIN LEVEL 4 -6; Start 04/29/17 at 20:00 Zolpidem Tartrate (Ambien) 5 mg QHS PRN PO INSOMNIA; Start 04/29/17 at 20:00 Docusate Sodium (Colace) 100 mg Q12H PRN PO CONSTIPATION; Start 04/29/17 at 20: 00 Bisacodyl (Dulcolax) 5 mg DAILY PRN PO CONSTIPATION; Start 04/29/17 at 20:00 Aspirin 325 mg 325 mg DAILY PO Last administered on 05/13/17 11:24; Admin Dose 325 MG; Start 04/30/17 at 09:00; Status Future Hold Vasopressin 60 unit/Dextrose 60 ml @ 1.2 mls/hr Q12H IV Last administered on 01:07; Admin Dose 2.4 MLS/HR; Start 04/30/17 at 13:00 Phenylephrine HCl 80 mg/Dextrose 250 ml @ 18.75 mls/ hr TITRATE IV Last administered on 05/04/17 09:57; Admin Dose 31.87 MLS/HR; Start 04/30/17 at 18: 00 Norepinephrine/ Dextrose (Levophed/D5W) 250 ml @ 0.46 mls/hr TITRATE IV Last administered on 05/15/17 11:38; Admin Dose 0.93 MLS/HR; Start 04/30/17 at 18:00 Pantoprazole (Protonix Iv) 40 mg BID@06,18 IV Last administered on 05/16/17 05 :10; Admin Dose 40 MG; Start 05/02/17 at 18:00 Diphenhydramine HCl 25 mg 25 mg Q4H PRN IV ITCHING Last administered on 16:41; Admin Dose 25 MG; Start 05/02/17 at 08:30 Dobutamine HCl/ Dextrose 250 ml @ 4.755 mls/ hr TITRATE IV Last administered on 05/07/17 05:21; Admin Dose 3.804 MLS/HR; Start 05/03/17 at 09:30 Miscellaneous Information 1 ea NOTE XX ; Start 05/03/17 at 13:00 Glucose (Glutose) 15 gm Q15M PRN PO DECREASED GLUCOSE; Start 05/03/17 at 12:45 Glucose (Glutose) 22.5 gm Q15M PRN PO DECREASED GLUCOSE; Start 05/03/17 at 12: 45 Dextrose (D50w Syringe) 25 ml Q15M PRN IV DECREASED GLUCOSE Last administered on 05/03/17 12:48; Admin Dose 25 ML; Start 05/03/17 at 12:45 Dextrose (D50w Syringe) 50 ml Q15M PRN IV DECREASED GLUCOSE; Start 05/03/17 at 12:46 Glucagon (Glucagen) 1 mg Q15M PRN IM DECREASED GLUCOSE; Start 05/03/17 at 12:46 Glucose 15 gm 15 gm Q15M PRN BUCCAL DECREASED GLUCOSE; Start 05/03/17 at 12:46 Midazolam HCl 50 ml @ 1 mls/hr TITRATE IV Last administered on 05/16/17 05:10 ; Admin Dose 3 MLS/HR; Start 05/03/17 at 15:00 Dextrose/Sodium Chloride (D5-NS) 1,000 ml @ 20 mls/hr Q24H IV Last administered on 05/15/17 09:22; Admin Dose 20 MLS/HR; Start 05/03/17 at 16:00 Metoclopramide HCl (Reglan) 5 mg Q6 IV Last administered on 05/16/17 05:10; Admin Dose 5 MG; Start 05/04/17 at 12:00 Nystatin 5 ml 5 ml QID PO Last administered on 05/16/17 09:52; Admin Dose 5 ML ; Start 05/04/17 at 13:00 Fentanyl (Sublimaze) 100 ml @ 5 mls/hr TITRATE IV Last administered on 05:11; Admin Dose 4 MLS/HR; Start 05/06/17 at 08:30 Eye Lubricant (Akwa Oint) 1 applic Q4 PRN BOTH EYES dryness Last administered on 05/08/17 08:59; Admin Dose 1 APPLIC; Start 05/07/17 at 13:00 [facility] This patient otto... PRN PRN XX WOUND CARE; Start 05/07/17 at 13:30 Carvedilol (Coreg) 3.125 mg BID PO Last administered on 05/13/17 23:21; Admin Dose 3.125 MG; Start 05/09/17 at 21:00 Lisinopril (Zestril) 2.5 mg DAILY PO ; Start 05/10/17 at 09:00 Morphine Sulfate (morphine) 1 mg Q4H PRN IV pain; Start 05/10/17 at 09:00 Scopolamine 1 patch 1 patch Q72H TRANSDERM Last administered on 05/14/17 17:27 ; Admin Dose 1 PATCH; Start 05/11/17 at 16:30 Sodium Chloride (NS) 1,000 ml @ 0 mls/hr Q0M PRN IV TO KEEP SBP ABOVE 90; Start 05/12/17 at 08:24 Amiodarone HCl (Cordarone) 400 mg DAILY NGT Last administered on 05/16/17 09: 53; Admin Dose 400 MG; Start 05/16/17 at 09:00 JEFF HANSON M.D. May 16, 2017 11:11
--- NOTE | 2017-05-16 11:58 | PN ---
DATE: 05/16/2017 SUBJECTIVE DATA: No acute changes. The patient remains intubated, sedated on Levophed drip. VITAL SIGNS: Afebrile, temperature 98.8, pulse 64, respirations 16, blood pressure 97/35, saturation 100 on vent. LABORATORY AND DIAGNOSTIC DATA: WBC 11.7. Hemoglobin and hematocrit 9 and 27.7, platelets 33,000, neutrophils 90.4. INDWELLING: Patient has endotracheal tube, orogastric tube, left upper extremity AV fistula, right femoral Ricardo catheter. DIAGNOSTICS: Chest x-ray from yesterday revealed no change. Pulmonary edema remains the same. ANTIMICROBIALS: Vancomycin and meropenem. PHYSICAL EXAMINATION: GENERAL: This is a chronically ill-appearing, elderly man who is intubated, in no distress. HEENT: Head atraumatic, normocephalic. Sclerae anicteric. Buccal mucosa dry. NECK: Supple. CHEST: Rise symmetrical. Breath sounds diminished at the bases. HEART: S1, S2. ABDOMEN: Soft, bowel sounds present. EXTREMITIES: Without cyanosis, bilateral trace edema. ASSESSMENT: 1. Shock, likely cardiogenic and hypovolemic. 2. Acute respiratory failure, re-intubated last week. 3. Pulmonary edema. 4. End-stage renal disease, hemodialysis dependent. 5. Status post aspiration pneumonia. 6. Status post streptococcal bacteremia. 7. Acute myocardial infarction status post left heart catheterization on 05/13/2007. 8. History of coronary artery bypass grafting. PLAN: The patient remains stable. We are going to discontinue antibiotics and observe him. We will rogers culture him if he spikes fever. Consider right femoral line change. Dictated By: Chelly Hudson NP /valarie/kenney /Document#: [id number]
--- NOTE | 2017-05-16 12:21 | CONS ---
Date/Time of Note Date/Time of Note DATE: 05/16/17 TIME: 12:15 Assessment/Plan Assessment/Plan Additional Assessment/Plan Chest x-ray was reviewed which is showing intermittent pulmonary edema. Ventilator setting; AC of 16, tidal volume 500, PEEP of 5, 30% FiO2. Patient currently on Versed 2 mg/h, fentanyl 40 mics per hour, Levophed 3 mics per minute. Assessment and recommendations; 1. Patient admitted with cardiogenic shock with interval improvement. 2. Respiratory failure, status post extubation requiring reintubation due to accumulation of pharyngeal secretions which were not amenable to deep suctioning. 3. Prior CABG with cardiomyopathy. 4. Status post coronary angiography not revealing any significant underlying coronary artery disease. 5. Severe generalized deconditioning. 6. History of recent upper GI bleed during current admission with interval resolution. 7. Anemia and thrombocytopenia. 8. Chronic renal failure, on hemodialysis. Continue current treatment. I did have a detailed discussion the patient's daughter at bedside and apprised her of that her father will need to have a tracheostomy placed. The family is agreeable. Overall prognosis remains very poor on account of multiple comorbidities. 35 minutes of critical care time was spent evaluating the patient. Consultation Date/Type/Reason Admit Date/Time Apr 29, 2017 at 19:31 Initial Consult Date 05/01/17 Type of Consultation: Pulmonary/critical care Referring Provider: YENNY WINSTON MD 24 HR Interval Summary Free Text/Dictation Patient's condition remains critical. Remains mildly hypotensive requiring pressor support. General exam; elderly male, orally intubated, mildly sedated. Currently in no distress. Exam/Review of Systems Vital Signs Vitals Vital Signs Date Time Temp Pulse Resp B/P Pulse Ox O2 Delivery O2 Flow Rate FiO2 05/16/17 11:42 75 16 100 05/16/17 11:30 106/35 05/16/17 11:00 Mechanical Ventilator 05/16/17 08:00 100.6 05/16/17 08:00 30 05/12/17 09:00 4.0 Intake and Output 05/15/17 05/15/17 05/16/17 15:00 23:00 07:00 Intake Total 778.86 ml 327.9 ml 361.94 ml Output Total 2500 ml Balance -1721.14 ml 327.9 ml 361.94 ml Exam HEENT exam; supple neck, positive JVD. No lymphadenopathy. Midline trachea. No thyromegaly. Orally intubated, patient has a multiple carious teeth. Pupils are small bilaterally. No neck masses. Chest exam; diminished but clear breath sounds. S1-S2 audible, no murmurs. Regular rhythm. There is a well-healed sternal scar. Abdomen exam; soft, no organomegaly. Bowel sounds audible. Extremity exam; trace edema. Patient does have multiple ecchymosis involving all 4 extremities. [employer] exam; patient is mildly sedated. Results Result Diagram: 05/16/1739905/16/17399 Results 24 hrs Laboratory Tests Test 05/16/17 04:00 White Blood Count 11.7 #H Red Blood Count 2.91 L Hemoglobin 9.0 L Hematocrit 27.7 L Mean Corpuscular Volume 95.2 Mean Corpuscular Hemoglobin 30.9 Mean Corpuscular Hemoglobin Concent 32.5 Red Cell Distribution Width 19.6 H Platelet Count 33 L Mean Platelet Volume 12.4 H Neutrophils % 90.4 H Lymphocytes % 3.7 L Monocytes % 4.9 Eosinophils % 0.4 Basophils % 0.1 Nucleated Red Blood Cells % 0.0 Neutrophils # 10.6 H Lymphocytes # 0.4 L Monocytes # 0.6 Eosinophils # 0.1 Basophils # 0.0 Nucleated Red Blood Cells # 0.0 Sodium Level 141 Potassium Level 3.8 Chloride Level 103 Carbon Dioxide Level 30 Anion Gap 12 Blood Urea Nitrogen 46 #H Creatinine 4.21 #H Glucose Level 117 Calcium Level 7.8 L Phosphorus Level 4.0 Magnesium Level 1.9 Total Bilirubin 0.3 Direct Bilirubin 0.00 Indirect Bilirubin 0.3 Aspartate Amino Transf (AST/SGOT) 39 Alanine Aminotransferase (ALT/SGPT) 94 H Alkaline Phosphatase 197 #H Total Protein 5.9 L Albumin 2.6 L Globulin 3.30 H Albumin/Globulin Ratio 0.78 Medications Medications Current Medications Folic Acid (Folic Acid) 1 mg DAILY PO Last administered on 05/16/17 09:53; Admin Dose 1 MG; Start 04/30/17 at 09:00 Ondansetron HCl (Zofran Inj) 4 mg Q6H PRN IV NAUSEA AND/OR VOMITING Last administered on 05/03/17 23:24; Admin Dose 4 MG; Start 04/29/17 at 20:00 Nitroglycerin (Nitroglycerin (Sl Tab) 0.4 Mg) 1 tab Q5M PRN SL CHEST PAIN; Start 04/29/17 at 20:00 Acetaminophen (Tylenol Liquid) 650 mg Q6H PRN PO PAIN LEVEL 1-3 OR FEVER; Start 04/29/17 at 20:00 Acetaminophen (Tylenol Tab) 650 mg Q6H PRN PO PAIN LEVEL 1-3 OR FEVER; Start at 20:00 Acetaminophen/ Hydrocodone Bitart ([place] (5/325)) 1 tab Q6H PRN PO PAIN LEVEL 4 -6; Start 04/29/17 at 20:00 Zolpidem Tartrate (Ambien) 5 mg QHS PRN PO INSOMNIA; Start 04/29/17 at 20:00 Docusate Sodium (Colace) 100 mg Q12H PRN PO CONSTIPATION; Start 04/29/17 at 20: 00 Bisacodyl (Dulcolax) 5 mg DAILY PRN PO CONSTIPATION; Start 04/29/17 at 20:00 Aspirin 325 mg 325 mg DAILY PO Last administered on 05/13/17 11:24; Admin Dose 325 MG; Start 04/30/17 at 09:00; Status Future Hold Vasopressin 60 unit/Dextrose 60 ml @ 1.2 mls/hr Q12H IV Last administered on 01:07; Admin Dose 2.4 MLS/HR; Start 04/30/17 at 13:00 Phenylephrine HCl 80 mg/Dextrose 250 ml @ 18.75 mls/ hr TITRATE IV Last administered on 05/04/17 09:57; Admin Dose 31.87 MLS/HR; Start 04/30/17 at 18: 00 Norepinephrine/ Dextrose (Levophed/D5W) 250 ml @ 0.46 mls/hr TITRATE IV Last administered on 05/15/17 11:38; Admin Dose 0.93 MLS/HR; Start 04/30/17 at 18:00 Pantoprazole (Protonix Iv) 40 mg BID@06,18 IV Last administered on 05/16/17 05 :10; Admin Dose 40 MG; Start 05/02/17 at 18:00 Diphenhydramine HCl 25 mg 25 mg Q4H PRN IV ITCHING Last administered on 16:41; Admin Dose 25 MG; Start 05/02/17 at 08:30 Dobutamine HCl/ Dextrose 250 ml @ 4.755 mls/ hr TITRATE IV Last administered on 05/07/17 05:21; Admin Dose 3.804 MLS/HR; Start 05/03/17 at 09:30 Miscellaneous Information 1 ea NOTE XX ; Start 05/03/17 at 13:00 Glucose (Glutose) 15 gm Q15M PRN PO DECREASED GLUCOSE; Start 05/03/17 at 12:45 Glucose (Glutose) 22.5 gm Q15M PRN PO DECREASED GLUCOSE; Start 05/03/17 at 12: 45 Dextrose (D50w Syringe) 25 ml Q15M PRN IV DECREASED GLUCOSE Last administered on 05/03/17 12:48; Admin Dose 25 ML; Start 05/03/17 at 12:45 Dextrose (D50w Syringe) 50 ml Q15M PRN IV DECREASED GLUCOSE; Start 05/03/17 at 12:46 Glucagon (Glucagen) 1 mg Q15M PRN IM DECREASED GLUCOSE; Start 05/03/17 at 12:46 Glucose 15 gm 15 gm Q15M PRN BUCCAL DECREASED GLUCOSE; Start 05/03/17 at 12:46 Midazolam HCl 50 ml @ 1 mls/hr TITRATE IV Last administered on 05/16/17 05:10 ; Admin Dose 3 MLS/HR; Start 05/03/17 at 15:00 Dextrose/Sodium Chloride (D5-NS) 1,000 ml @ 20 mls/hr Q24H IV Last administered on 05/15/17 09:22; Admin Dose 20 MLS/HR; Start 05/03/17 at 16:00 Metoclopramide HCl (Reglan) 5 mg Q6 IV Last administered on 05/16/17 05:10; Admin Dose 5 MG; Start 05/04/17 at 12:00 Nystatin 5 ml 5 ml QID PO Last administered on 05/16/17 09:52; Admin Dose 5 ML ; Start 05/04/17 at 13:00 Fentanyl (Sublimaze) 100 ml @ 5 mls/hr TITRATE IV Last administered on 05:11; Admin Dose 4 MLS/HR; Start 05/06/17 at 08:30 Eye Lubricant (Akwa Oint) 1 applic Q4 PRN BOTH EYES dryness Last administered on 05/08/17 08:59; Admin Dose 1 APPLIC; Start 05/07/17 at 13:00 Miscellaneous Information ([facility]) This patient otto... PRN PRN XX WOUND CARE; Start 05/07/17 at 13:30 Carvedilol (Coreg) 3.125 mg BID PO Last administered on 05/13/17 23:21; Admin Dose 3.125 MG; Start 05/09/17 at 21:00 Lisinopril (Zestril) 2.5 mg DAILY PO ; Start 05/10/17 at 09:00 Morphine Sulfate (morphine) 1 mg Q4H PRN IV pain; Start 05/10/17 at 09:00 Scopolamine 1 patch 1 patch Q72H TRANSDERM Last administered on 05/14/17 17:27 ; Admin Dose 1 PATCH; Start 05/11/17 at 16:30 Sodium Chloride (NS) 1,000 ml @ 0 mls/hr Q0M PRN IV TO KEEP SBP ABOVE 90; Start 05/12/17 at 08:24 Amiodarone HCl (Cordarone) 400 mg DAILY NGT Last administered on 05/16/17 09: 53; Admin Dose 400 MG; Start 05/16/17 at 09:00 CHARLES EMMANUEL May 16, 2017 12:21
--- NOTE | 2017-05-16 13:53 | CONS ---
Date/Time of Note Date/Time of Note DATE: 05/16/17 TIME: 13:51 Assessment/Plan Assessment/Plan Additional Assessment/Plan Additional Assessment/Plan IMPRESSION: 1. Gastrointestinal bleeding. 2. History of esophageal stricture status post dilatation. 3. Status post coronary angiogram. 4. Renal failure on dialysis. 5. Thrombocytopenia. Platelet count is 31,000 6. Respiratory failure on vent. 7. Shock liver but now the liver function is back to normal. 8. Congestive heart failure, the ejection fraction is 35-40 percent. 9. Ventricular tachycardia, now in sinus rhythm on amiodarone. PLAN: 1. Continue present care. 2. Transfuse on a needed basis, keep the hemoglobin above 8 or 9. 3. Keep the platelet count above 50,000 to prevent bleeding. 4. Avoid blood thinner for the time being. 5. Continue with beta-abdon and GUANACO inhibitor, and continue with proton pump inhibitor. 6. Patient could not be weaned off ventilator. He may require tracheostomy 7. No further bleeding noted Consultation Date/Type/Reason Admit Date/Time Apr 29, 2017 at 19:31 Initial Consult Date 05/02/17 Type of Consultation: Pulmonary/critical care Referring Provider: YENNY WINSTON MD 24 HR Interval Summary Subjective hx not possible: pt non-verbal Exam/Review of Systems Vital Signs Vitals Vital Signs Date Time Temp Pulse Resp B/P Pulse Ox O2 Delivery O2 Flow Rate FiO2 05/16/17 12:00 73 05/16/17 11:42 16 100 05/16/17 11:30 106/35 05/16/17 11:00 Mechanical Ventilator 05/16/17 08:00 100.6 05/16/17 08:00 30 05/12/17 09:00 4.0 Intake and Output 05/15/17 05/15/17 05/16/17 15:00 23:00 07:00 Intake Total 778.86 ml 327.9 ml 361.94 ml Output Total 2500 ml Balance -1721.14 ml 327.9 ml 361.94 ml Exam Respiratory: other (Patient is intubated and is on ventilator), No clear to auscultation, No congested cough, No crackles/rales, No diminished breath sounds, No intercostal retraction, No labored breathing, No normal air movement, No respirations, No tactile fremitus, No wheezing Cardiovascular: nl pulses, regular rate and rhythm Gastrointestinal: nl liver, spleen, non-tender, soft Extremities: normal pulses Results Result Diagram: 05/16/17 0400 05/16/17 0400 Results 24 hrs Laboratory Tests Test 05/16/17 04:00 White Blood Count 11.7 #H Red Blood Count 2.91 L Hemoglobin 9.0 L Hematocrit 27.7 L Mean Corpuscular Volume 95.2 Mean Corpuscular Hemoglobin 30.9 Mean Corpuscular Hemoglobin Concent 32.5 Red Cell Distribution Width 19.6 H Platelet Count 33 L Mean Platelet Volume 12.4 H Neutrophils % 90.4 H Lymphocytes % 3.7 L Monocytes % 4.9 Eosinophils % 0.4 Basophils % 0.1 Nucleated Red Blood Cells % 0.0 Neutrophils # 10.6 H Lymphocytes # 0.4 L Monocytes # 0.6 Eosinophils # 0.1 Basophils # 0.0 Nucleated Red Blood Cells # 0.0 Sodium Level 141 Potassium Level 3.8 Chloride Level 103 Carbon Dioxide Level 30 Anion Gap 12 Blood Urea Nitrogen 46 #H Creatinine 4.21 #H Glucose Level 117 Calcium Level 7.8 L Phosphorus Level 4.0 Magnesium Level 1.9 Total Bilirubin 0.3 Direct Bilirubin 0.00 Indirect Bilirubin 0.3 Aspartate Amino Transf (AST/SGOT) 39 Alanine Aminotransferase (ALT/SGPT) 94 H Alkaline Phosphatase 197 #H Total Protein 5.9 L Albumin 2.6 L Globulin 3.30 H Albumin/Globulin Ratio 0.78 Medications Medications Current Medications Folic Acid (Folic Acid) 1 mg DAILY PO Last administered on 05/16/17 09:53; Admin Dose 1 MG; Start 04/30/17 at 09:00 Ondansetron HCl (Zofran Inj) 4 mg Q6H PRN IV NAUSEA AND/OR VOMITING Last administered on 05/03/17 23:24; Admin Dose 4 MG; Start 04/29/17 at 20:00 Nitroglycerin (Nitroglycerin (Sl Tab) 0.4 Mg) 1 tab Q5M PRN SL CHEST PAIN; Start 04/29/17 at 20:00 Acetaminophen (Tylenol Liquid) 650 mg Q6H PRN PO PAIN LEVEL 1-3 OR FEVER; Start 04/29/17 at 20:00 Acetaminophen (Tylenol Tab) 650 mg Q6H PRN PO PAIN LEVEL 1-3 OR FEVER; Start at 20:00 Acetaminophen/ Hydrocodone Bitart ([place] (5/325)) 1 tab Q6H PRN PO PAIN LEVEL 4 -6; Start 04/29/17 at 20:00 Zolpidem Tartrate (Ambien) 5 mg QHS PRN PO INSOMNIA; Start 04/29/17 at 20:00 Docusate Sodium (Colace) 100 mg Q12H PRN PO CONSTIPATION; Start 04/29/17 at 20: 00 Bisacodyl (Dulcolax) 5 mg DAILY PRN PO CONSTIPATION; Start 04/29/17 at 20:00 Aspirin 325 mg 325 mg DAILY PO Last administered on 05/13/17 11:24; Admin Dose 325 MG; Start 04/30/17 at 09:00; Status Future Hold Vasopressin 60 unit/Dextrose 60 ml @ 1.2 mls/hr Q12H IV Last administered on 01:07; Admin Dose 2.4 MLS/HR; Start 04/30/17 at 13:00 Phenylephrine HCl 80 mg/Dextrose 250 ml @ 18.75 mls/ hr TITRATE IV Last administered on 05/04/17 09:57; Admin Dose 31.87 MLS/HR; Start 04/30/17 at 18: 00 Norepinephrine/ Dextrose (Levophed/D5W) 250 ml @ 0.46 mls/hr TITRATE IV Last administered on 05/15/17 11:38; Admin Dose 0.93 MLS/HR; Start 04/30/17 at 18:00 Pantoprazole (Protonix Iv) 40 mg BID@06,18 IV Last administered on 05/16/17 05 :10; Admin Dose 40 MG; Start 05/02/17 at 18:00 Diphenhydramine HCl 25 mg 25 mg Q4H PRN IV ITCHING Last administered on 16:41; Admin Dose 25 MG; Start 05/02/17 at 08:30 Dobutamine HCl/ Dextrose 250 ml @ 4.755 mls/ hr TITRATE IV Last administered on 05/07/17 05:21; Admin Dose 3.804 MLS/HR; Start 05/03/17 at 09:30 Miscellaneous Information 1 ea NOTE XX ; Start 05/03/17 at 13:00 Glucose (Glutose) 15 gm Q15M PRN PO DECREASED GLUCOSE; Start 05/03/17 at 12:45 Glucose (Glutose) 22.5 gm Q15M PRN PO DECREASED GLUCOSE; Start 05/03/17 at 12: 45 Dextrose (D50w Syringe) 25 ml Q15M PRN IV DECREASED GLUCOSE Last administered on 05/03/17 12:48; Admin Dose 25 ML; Start 05/03/17 at 12:45 Dextrose (D50w Syringe) 50 ml Q15M PRN IV DECREASED GLUCOSE; Start 05/03/17 at 12:46 Glucagon (Glucagen) 1 mg Q15M PRN IM DECREASED GLUCOSE; Start 05/03/17 at 12:46 Glucose 15 gm 15 gm Q15M PRN BUCCAL DECREASED GLUCOSE; Start 05/03/17 at 12:46 Midazolam HCl 50 ml @ 1 mls/hr TITRATE IV Last administered on 05/16/17 05:10 ; Admin Dose 3 MLS/HR; Start 05/03/17 at 15:00 Dextrose/Sodium Chloride (D5-NS) 1,000 ml @ 20 mls/hr Q24H IV Last administered on 05/15/17 09:22; Admin Dose 20 MLS/HR; Start 05/03/17 at 16:00 Metoclopramide HCl (Reglan) 5 mg Q6 IV Last administered on 05/16/17 13:24; Admin Dose 5 MG; Start 05/04/17 at 12:00 Nystatin 5 ml 5 ml QID PO Last administered on 05/16/17 13:24; Admin Dose 5 ML ; Start 05/04/17 at 13:00 Fentanyl (Sublimaze) 100 ml @ 5 mls/hr TITRATE IV Last administered on 05:11; Admin Dose 4 MLS/HR; Start 05/06/17 at 08:30 Eye Lubricant (Akwa Oint) 1 applic Q4 PRN BOTH EYES dryness Last administered on 05/08/17 08:59; Admin Dose 1 APPLIC; Start 05/07/17 at 13:00 Miscellaneous Information (Pending [facility] Order For Wound Care) This patient otto... PRN PRN XX WOUND CARE; Start 05/07/17 at 13:30 Carvedilol (Coreg) 3.125 mg BID PO Last administered on 05/13/17 23:21; Admin Dose 3.125 MG; Start 05/09/17 at 21:00 Lisinopril (Zestril) 2.5 mg DAILY PO ; Start 05/10/17 at 09:00 Morphine Sulfate (morphine) 1 mg Q4H PRN IV pain; Start 05/10/17 at 09:00 Scopolamine 1 patch 1 patch Q72H TRANSDERM Last administered on 05/14/17 17:27 ; Admin Dose 1 PATCH; Start 05/11/17 at 16:30 Sodium Chloride (NS) 1,000 ml @ 0 mls/hr Q0M PRN IV TO KEEP SBP ABOVE 90; Start 05/12/17 at 08:24 Amiodarone HCl (Cordarone) 400 mg DAILY NGT Last administered on 05/16/17 09: 53; Admin Dose 400 MG; Start 05/16/17 at 09:00 KASSI HOLLAND MD May 16, 2017 13:53
[2017-05-16] MEDS: DEXTROSE 5%-0.9% NACL 1,000 ML IV SCH (16:00)
--- NOTE | 2017-05-16 17:35 | PN ---
Date/Time of Note Date/Time of Note DATE: 05/16/17 TIME: 17:31 Assessment/Plan VTE Prophylaxis VTE Prophylaxis Intervention: other Lines/Catheters IV Catheter Type (from Nrs): Central Line Central line still needed: Yes Urinary Cath still in place: No Reason Cath still needed: other (indicate) Assessment/Plan Chief Complaint/Hosp Course A/P NSTEMI S/P V TACH ESRD PUL EDEMA BETTER SHOCK LIVER BETTER PNEUMONIA SYS HEAR T FAILURE BETTERE ANEMIA LOW PLATELET VDRF S/P CATH NO PCI LOW EF BETTER PER DR SIMON DVT ARM ESOPHAGIAL DILATITION PER GI HX EDEMA ARMS PLANCONTINUE HD Problems: Subjective 24 Hr Interval Summary Respiratory: other (ON VENT) Cardiovascular: no complaints Gastrointestinal: no complaints Exam/Review of Systems Vital Signs Vitals Vital Signs Date Time Temp Pulse Resp B/P Pulse Ox O2 Delivery O2 Flow Rate FiO2 05/16/17 17:15 69 16 100 05/16/17 14:30 94/45 05/16/17 14:00 Mechanical Ventilator 05/16/17 12:00 99.5 05/16/17 08:00 30 05/12/17 09:00 4.0 Intake and Output 05/15/17 05/15/17 05/16/17 15:00 23:00 07:00 Intake Total 778.86 ml 327.9 ml 361.94 ml Output Total 2500 ml Balance -1721.14 ml 327.9 ml 361.94 ml Exam Neck: supple Respiratory: diminished breath sounds Cardiovascular: regular rate and rhythm Gastrointestinal: bowel sounds (+), soft Extremities: edema (++) Results Result Diagram: 05/16/17 0400 05/16/17 0400 Results 24 hrs Laboratory Tests Test 05/16/17 04:00 White Blood Count 11.7 #H Red Blood Count 2.91 L Hemoglobin 9.0 L Hematocrit 27.7 L Mean Corpuscular Volume 95.2 Mean Corpuscular Hemoglobin 30.9 Mean Corpuscular Hemoglobin Concent 32.5 Red Cell Distribution Width 19.6 H Platelet Count 33 L Mean Platelet Volume 12.4 H Neutrophils % 90.4 H Lymphocytes % 3.7 L Monocytes % 4.9 Eosinophils % 0.4 Basophils % 0.1 Nucleated Red Blood Cells % 0.0 Neutrophils # 10.6 H Lymphocytes # 0.4 L Monocytes # 0.6 Eosinophils # 0.1 Basophils # 0.0 Nucleated Red Blood Cells # 0.0 Sodium Level 141 Potassium Level 3.8 Chloride Level 103 Carbon Dioxide Level 30 Anion Gap 12 Blood Urea Nitrogen 46 #H Creatinine 4.21 #H Glucose Level 117 Calcium Level 7.8 L Phosphorus Level 4.0 Magnesium Level 1.9 Total Bilirubin 0.3 Direct Bilirubin 0.00 Indirect Bilirubin 0.3 Aspartate Amino Transf (AST/SGOT) 39 Alanine Aminotransferase (ALT/SGPT) 94 H Alkaline Phosphatase 197 #H Total Protein 5.9 L Albumin 2.6 L Globulin 3.30 H Albumin/Globulin Ratio 0.78 Medications Medications Current Medications Folic Acid (Folic Acid) 1 mg DAILY PO Last administered on 05/16/17 09:53; Admin Dose 1 MG; Start 04/30/17 at 09:00 Ondansetron HCl (Zofran Inj) 4 mg Q6H PRN IV NAUSEA AND/OR VOMITING Last administered on 05/03/17 23:24; Admin Dose 4 MG; Start 04/29/17 at 20:00 Nitroglycerin (Nitroglycerin (Sl Tab) 0.4 Mg) 1 tab Q5M PRN SL CHEST PAIN; Start 04/29/17 at 20:00 Acetaminophen (Tylenol Liquid) 650 mg Q6H PRN PO PAIN LEVEL 1-3 OR FEVER; Start 04/29/17 at 20:00 Acetaminophen (Tylenol Tab) 650 mg Q6H PRN PO PAIN LEVEL 1-3 OR FEVER; Start at 20:00 Acetaminophen/ Hydrocodone Bitart ([place] (5/325)) 1 tab Q6H PRN PO PAIN LEVEL 4 -6; Start 04/29/17 at 20:00 Zolpidem Tartrate (Ambien) 5 mg QHS PRN PO INSOMNIA; Start 04/29/17 at 20:00 Docusate Sodium (Colace) 100 mg Q12H PRN PO CONSTIPATION; Start 04/29/17 at 20: 00 Bisacodyl (Dulcolax) 5 mg DAILY PRN PO CONSTIPATION; Start 04/29/17 at 20:00 Aspirin 325 mg 325 mg DAILY PO Last administered on 05/13/17 11:24; Admin Dose 325 MG; Start 04/30/17 at 09:00; Status Future Hold Vasopressin 60 unit/Dextrose 60 ml @ 1.2 mls/hr Q12H IV Last administered on 01:07; Admin Dose 2.4 MLS/HR; Start 04/30/17 at 13:00 Phenylephrine HCl 80 mg/Dextrose 250 ml @ 18.75 mls/ hr TITRATE IV Last administered on 05/04/17 09:57; Admin Dose 31.87 MLS/HR; Start 04/30/17 at 18: 00 Norepinephrine/ Dextrose (Levophed/D5W) 250 ml @ 0.46 mls/hr TITRATE IV Last administered on 05/15/17 11:38; Admin Dose 0.93 MLS/HR; Start 04/30/17 at 18:00 Pantoprazole (Protonix Iv) 40 mg BID@06,18 IV Last administered on 05/16/17 05 :10; Admin Dose 40 MG; Start 05/02/17 at 18:00 Diphenhydramine HCl 25 mg 25 mg Q4H PRN IV ITCHING Last administered on 16:41; Admin Dose 25 MG; Start 05/02/17 at 08:30 Dobutamine HCl/ Dextrose 250 ml @ 4.755 mls/ hr TITRATE IV Last administered on 05/07/17 05:21; Admin Dose 3.804 MLS/HR; Start 05/03/17 at 09:30 Miscellaneous Information 1 ea NOTE XX ; Start 05/03/17 at 13:00 Glucose (Glutose) 15 gm Q15M PRN PO DECREASED GLUCOSE; Start 05/03/17 at 12:45 Glucose (Glutose) 22.5 gm Q15M PRN PO DECREASED GLUCOSE; Start 05/03/17 at 12: 45 Dextrose (D50w Syringe) 25 ml Q15M PRN IV DECREASED GLUCOSE Last administered on 05/03/17 12:48; Admin Dose 25 ML; Start 05/03/17 at 12:45 Dextrose (D50w Syringe) 50 ml Q15M PRN IV DECREASED GLUCOSE; Start 05/03/17 at 12:46 Glucagon (Glucagen) 1 mg Q15M PRN IM DECREASED GLUCOSE; Start 05/03/17 at 12:46 Glucose 15 gm 15 gm Q15M PRN BUCCAL DECREASED GLUCOSE; Start 05/03/17 at 12:46 Midazolam HCl 50 ml @ 1 mls/hr TITRATE IV Last administered on 05/16/17 05:10 ; Admin Dose 3 MLS/HR; Start 05/03/17 at 15:00 Dextrose/Sodium Chloride (D5-NS) 1,000 ml @ 20 mls/hr Q24H IV Last administered on 05/15/17 09:22; Admin Dose 20 MLS/HR; Start 05/03/17 at 16:00 Metoclopramide HCl (Reglan) 5 mg Q6 IV Last administered on 05/16/17 13:24; Admin Dose 5 MG; Start 05/04/17 at 12:00 Nystatin 5 ml 5 ml QID PO Last administered on 05/16/17 13:24; Admin Dose 5 ML ; Start 05/04/17 at 13:00 Fentanyl (Sublimaze) 100 ml @ 5 mls/hr TITRATE IV Last administered on 05:11; Admin Dose 4 MLS/HR; Start 05/06/17 at 08:30 Eye Lubricant (Akwa Oint) 1 applic Q4 PRN BOTH EYES dryness Last administered on 05/08/17 08:59; Admin Dose 1 APPLIC; Start 05/07/17 at 13:00 Miscellaneous Information (Pending [facility] Order For Wound Care) This patient otto... PRN PRN XX WOUND CARE; Start 05/07/17 at 13:30 Carvedilol (Coreg) 3.125 mg BID PO Last administered on 05/13/17 23:21; Admin Dose 3.125 MG; Start 05/09/17 at 21:00 Lisinopril (Zestril) 2.5 mg DAILY PO ; Start 05/10/17 at 09:00 Morphine Sulfate (morphine) 1 mg Q4H PRN IV pain; Start 05/10/17 at 09:00 Scopolamine 1 patch 1 patch Q72H TRANSDERM Last administered on 05/14/17 17:27 ; Admin Dose 1 PATCH; Start 05/11/17 at 16:30 Sodium Chloride (NS) 1,000 ml @ 0 mls/hr Q0M PRN IV TO KEEP SBP ABOVE 90; Start 05/12/17 at 08:24 Amiodarone HCl (Cordarone) 400 mg DAILY NGT Last administered on 05/16/17 09: 53; Admin Dose 400 MG; Start 05/16/17 at 09:00 YENNY WINSTON MD May 16, 2017 17:35
[2017-05-17] VITALS (49 sets, daily range): BP systolic 87–175; BP diastolic 29–69; PULSE 61–93; RESP 8–27
[2017-05-17] MEDS: VASOPRESSIN 60 UNIT in DEXTROSE 5% 57 ML IV SCH ×3 (01:00→23:31)
[2017-05-17] MEDS: ALBUTEROL 18 GM INHALER INH SCH ×4 (01:23→19:39)
[2017-05-17] MEDS: IPRATROPIUM (HFA) 12.9 GM INHALER INH SCH ×4 (01:23→19:39)
--- NOTE | 2017-05-17 05:07 | CONS ---
DATE OF ADMISSION: 04/29/2017 DATE OF CONSULTATION: 05/16/2017 REASON FOR CONSULTATION: Evaluation for possible tracheostomy. This is a 87-year-old male with a history of hypertension and coronary artery disease. The patient has had a coronary artery bypass grafting. He was admitted because of cardiac failure, has been intubated, was unable to come off the ventilator secondary to multiple medical problems including pneumonia and respiratory failure. PAST MEDICAL HISTORY: Hypertension, hyperlipidemia, coronary artery disease. History of GI bleeding. Question renal failure on dialysis. PAST SURGICAL HISTORY: Coronary artery bypass grafting and dialysis access. ALLERGIES: NONE. SOCIAL HISTORY: No smoking. No drug use. MEDICATION: List reviewed. PHYSICAL EXAMINATION: VITAL SIGNS: Blood pressure is 94/45, pulse is 74, respirations 17, saturations 100 percent. HEART: Regular rate and rhythm. LUNGS: Clear. ABDOMEN: Soft. EXTREMITIES: Warm. IMPRESSION: Respiratory failure. RECOMMENDATIONS: We will proceed with placement of a tracheostomy. The family is agreeable. Dictated By: Aquiles Wesley MD /[email or web address] /Document#: [id number]
[2017-05-17 05:32] LABS: ABNORMAL IP MESSAGE 1; BASOPHILS % 0.1 % (0.0-2.0); EOSINOPHILS # 0.1 10^3/ul (0.0-0.5); EOSINOPHILS % 1.2 % (0.0-7.0); HEMATOCRIT 24.6 % (42.0-52.0); HEMOGLOBIN 8.3 g/dl (14.0-18.0); LYMPHOCYTES # 0.5 10^3/ul (0.8-2.9); LYMPHOCYTES % 5.4 % (15.0-51.0); MEAN CORPUSCULAR HEMOGLOBIN 32.8 pg (29.0-33.0); MEAN CORPUSCULAR HGB CONC 33.7 g/dl (32.0-37.0); MEAN CORPUSCULAR VOLUME 97.2 fl (82.0-101.0); MEAN PLATELET VOLUME 13.2 fl (7.4-10.4); MONOCYTE # 0.3 10^3/ul (0.3-0.9); NEUTROPHIL # 7.5 10^3/ul (1.6-7.5); NEUTROPHILS % 88.5 % (39.0-77.0); PLATELET COUNT 45 10^3/UL (140-415); POSITIVE DIFF @See below; RED BLOOD COUNT 2.53 10^6/ul (4.70-6.10); RED CELL DISTRIBUTION WIDTH 18.8 % (11.5-14.5); WHITE BLOOD COUNT 8.5 10^3/ul (4.8-10.8)
[2017-05-17] MEDS: PANTOPRAZOLE 40 MG INJ IV SCH ×2 (05:46→17:08)
[2017-05-17] MEDS: METOCLOPRAMIDE 10 MG INJ IV SCH ×4 (05:46→23:31)
[2017-05-17 06:00] LABS: ALBUMIN 2.4 g/dl (3.3-4.9); ALBUMIN/GLOBULIN RATIO 0.75; BILIRUBIN,INDIRECT 0.2 mg/dl (0-1.1); BILIRUBIN,TOTAL 0.2 mg/dl (0.2-1.3); CALCIUM 7.4 mg/dl (8.4-10.2); CREATININE 5.54 mg/dl (0.61-1.24); TOTAL PROTEIN 5.6 g/dl (6.1-8.1)
[2017-05-17] MEDS: ALBUMIN HUMAN 25% 50 ML IV PRN (06:08)
[2017-05-17] MEDS: DEXTROSE 5%-0.9% NACL 1,000 ML IV SCH (09:20)
[2017-05-17] MEDS: FOLIC ACID 1 MG TAB PO SCH (09:43)
[2017-05-17] MEDS: AMIODARONE 200 MG TAB NGT SCH (09:43)
[2017-05-17] MEDS: NYSTATIN SUSP 5 ML CUP PO SCH ×4 (09:44→21:31)
[2017-05-17] MEDS: LISINOPRIL 5 MG TAB PO SCH (09:44)
--- NOTE | 2017-05-17 11:28 | CONS ---
Date/Time of Note Date/Time of Note DATE: 05/17/17 TIME: 11:24 Assessment/Plan Assessment/Plan Additional Assessment/Plan Ventilator setting; AC of 16, tidal volume 500, PEEP of 5, 30% FiO2. Patient was dialyzed today 2 L of fluid was removed. Assessment recommendations; 1. Patient admitted for cardiogenic shock with significant interval improvement. 2. Status post coronary angiography with essentially negative findings. 3. Failure to be weaned from ventilator despite numerous attempts. Patient also failed one extubation trial. 4. Anemia and thrombocytopenia. 5. Chronic renal failure, on hemodialysis. 6. Severe generalized deconditioning. Continue current supportive care. I did have a very detailed discussion patient 's daughter at bedside and apprised her that her father will need a tracheostomy. However the patient has expressed his wishes in the past that he does not want that under any circumstance. The family is going to decide about possible terminal extubation sometime soon. Prognosis remains extremely poor on account of multiple comorbidities. 35 minutes of critical care time was spent evaluating the patient. Consultation Date/Type/Reason Admit Date/Time Apr 29, 2017 at 19:31 Initial Consult Date 05/01/17 Type of Consultation: Pulmonary/critical care Referring Provider: YENNY WINSTON MD 24 HR Interval Summary Free Text/Dictation Patient condition remains critical. However patient has not been off pressor support. Remains awake. General exam; elderly male, orally intubated, awake, currently in no distress. Follows simple commands. Exam/Review of Systems Vital Signs Vitals Vital Signs Date Time Temp Pulse Resp B/P Pulse Ox O2 Delivery O2 Flow Rate FiO2 05/17/17 10:00 79 15 125/51 100 Mechanical Ventilator 05/17/17 08:00 100.6 05/16/17 08:00 30 Intake and Output 05/16/17 05/16/17 05/17/17 15:00 23:00 07:00 Intake Total 545.34 ml 491 ml 980 ml Output Total 3000 ml Balance 545.34 ml 491 ml -2020 ml Exam HEENT exam; supple neck, positive JVD. No lymphadenopathy. Midline trachea. Orally intubated. Pupils are small bilaterally. Patient does have multiple carious teeth. Chest exam; diminished but clear breath sounds. S1-S2 audible, no murmurs. There is a well-healed sternal scar. Abdomen exam; soft, protuberant. Nontender. Bowel sounds audible. No organomegaly. Extremity exam; 1+ pitting edema involving left upper extremity. Trace generalized edema. Multiple ecchymosis are present in all 4 extremities. 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 Results Result Diagram: 05/17/17 0400 05/17/17 0400 Results 24 hrs Laboratory Tests Test 05/17/17 04:00 05/17/17 05:31 White Blood Count 8.5 # Red Blood Count 2.53 L Hemoglobin 8.3 L Hematocrit 24.6 L Mean Corpuscular Volume 97.2 Mean Corpuscular Hemoglobin 32.8 Mean Corpuscular Hemoglobin Concent 33.7 Red Cell Distribution Width 18.8 H Platelet Count 45 #L Mean Platelet Volume 13.2 H Neutrophils % 88.5 H Lymphocytes % 5.4 L Monocytes % 4.0 Eosinophils % 1.2 Basophils % 0.1 Nucleated Red Blood Cells % 0.0 Neutrophils # 7.5 Lymphocytes # 0.5 L Monocytes # 0.3 Eosinophils # 0.1 Basophils # 0.0 Nucleated Red Blood Cells # 0.0 Sodium Level 142 Potassium Level 4.0 Chloride Level 104 Carbon Dioxide Level 30 Anion Gap 12 Blood Urea Nitrogen 66 H Creatinine 5.54 H Glucose Level 110 Calcium Level 7.4 L Total Bilirubin 0.2 Direct Bilirubin 0.00 Indirect Bilirubin 0.2 Aspartate Amino Transf (AST/SGOT) 34 Alanine Aminotransferase (ALT/SGPT) 71 H Alkaline Phosphatase 189 H Total Protein 5.6 L Albumin 2.4 L Globulin 3.20 Albumin/Globulin Ratio 0.75 Lab Scanned Report BLOOD TRANSFUSION Medications Medications Current Medications Folic Acid (Folic Acid) 1 mg DAILY PO Last administered on 05/17/17 09:43; Admin Dose 1 MG; Start 04/30/17 at 09:00 Ondansetron HCl (Zofran Inj) 4 mg Q6H PRN IV NAUSEA AND/OR VOMITING Last administered on 05/03/17 23:24; Admin Dose 4 MG; Start 04/29/17 at 20:00 Nitroglycerin (Nitroglycerin (Sl Tab) 0.4 Mg) 1 tab Q5M PRN SL CHEST PAIN; Start 04/29/17 at 20:00 Acetaminophen (Tylenol Liquid) 650 mg Q6H PRN PO PAIN LEVEL 1-3 OR FEVER; Start 04/29/17 at 20:00 Acetaminophen (Tylenol Tab) 650 mg Q6H PRN PO PAIN LEVEL 1-3 OR FEVER; Start at 20:00 Acetaminophen/ Hydrocodone Bitart ([place] (5/325)) 1 tab Q6H PRN PO PAIN LEVEL 4 -6; Start 04/29/17 at 20:00 Zolpidem Tartrate (Ambien) 5 mg QHS PRN PO INSOMNIA; Start 04/29/17 at 20:00 Docusate Sodium (Colace) 100 mg Q12H PRN PO CONSTIPATION; Start 04/29/17 at 20: 00 Bisacodyl (Dulcolax) 5 mg DAILY PRN PO CONSTIPATION; Start 04/29/17 at 20:00 Aspirin 325 mg 325 mg DAILY PO Last administered on 05/13/17 11:24; Admin Dose 325 MG; Start 04/30/17 at 09:00; Status Future Hold Vasopressin 60 unit/Dextrose 60 ml @ 1.2 mls/hr Q12H IV Last administered on 01:07; Admin Dose 2.4 MLS/HR; Start 04/30/17 at 13:00 Phenylephrine HCl 80 mg/Dextrose 250 ml @ 18.75 mls/ hr TITRATE IV Last administered on 05/04/17 09:57; Admin Dose 31.87 MLS/HR; Start 04/30/17 at 18: 00 Norepinephrine/ Dextrose (Levophed/D5W) 250 ml @ 0.46 mls/hr TITRATE IV Last administered on 05/15/17 11:38; Admin Dose 0.93 MLS/HR; Start 04/30/17 at 18:00 Pantoprazole (Protonix Iv) 40 mg BID@06,18 IV Last administered on 05/17/17 05 :46; Admin Dose 40 MG; Start 05/02/17 at 18:00 Diphenhydramine HCl 25 mg 25 mg Q4H PRN IV ITCHING Last administered on 16:41; Admin Dose 25 MG; Start 05/02/17 at 08:30 Dobutamine HCl/ Dextrose 250 ml @ 4.755 mls/ hr TITRATE IV Last administered on 05/07/17 05:21; Admin Dose 3.804 MLS/HR; Start 05/03/17 at 09:30 Miscellaneous Information 1 ea NOTE XX ; Start 05/03/17 at 13:00 Glucose (Glutose) 15 gm Q15M PRN PO DECREASED GLUCOSE; Start 05/03/17 at 12:45 Glucose (Glutose) 22.5 gm Q15M PRN PO DECREASED GLUCOSE; Start 05/03/17 at 12: 45 Dextrose (D50w Syringe) 25 ml Q15M PRN IV DECREASED GLUCOSE Last administered on 05/03/17 12:48; Admin Dose 25 ML; Start 05/03/17 at 12:45 Dextrose (D50w Syringe) 50 ml Q15M PRN IV DECREASED GLUCOSE; Start 05/03/17 at 12:46 Glucagon (Glucagen) 1 mg Q15M PRN IM DECREASED GLUCOSE; Start 05/03/17 at 12:46 Glucose 15 gm 15 gm Q15M PRN BUCCAL DECREASED GLUCOSE; Start 05/03/17 at 12:46 Midazolam HCl 50 ml @ 1 mls/hr TITRATE IV Last administered on 05/16/17 05:10 ; Admin Dose 3 MLS/HR; Start 05/03/17 at 15:00 Dextrose/Sodium Chloride (D5-NS) 1,000 ml @ 20 mls/hr Q24H IV Last administered on 05/17/17 09:20; Admin Dose 20 MLS/HR; Start 05/03/17 at 16:00 Metoclopramide HCl (Reglan) 5 mg Q6 IV Last administered on 05/17/17 05:46; Admin Dose 5 MG; Start 05/04/17 at 12:00 Nystatin 5 ml 5 ml QID PO Last administered on 05/17/17 09:44; Admin Dose 5 ML ; Start 05/04/17 at 13:00 Fentanyl (Sublimaze) 100 ml @ 5 mls/hr TITRATE IV Last administered on 05:11; Admin Dose 4 MLS/HR; Start 05/06/17 at 08:30 Eye Lubricant (Akwa Oint) 1 applic Q4 PRN BOTH EYES dryness Last administered on 05/08/17 08:59; Admin Dose 1 APPLIC; Start 05/07/17 at 13:00 Miscellaneous Information (Pending [facility] Order For Wound Care) This patient otto... PRN PRN XX WOUND CARE; Start 05/07/17 at 13:30 Carvedilol (Coreg) 3.125 mg BID PO Last administered on 05/17/17 09:44; Admin Dose 3.125 MG; Start 05/09/17 at 21:00 Lisinopril (Zestril) 2.5 mg DAILY PO Last administered on 05/17/17 09:44; Admin Dose 2.5 MG; Start 05/10/17 at 09:00 Morphine Sulfate (morphine) 1 mg Q4H PRN IV pain; Start 05/10/17 at 09:00 Scopolamine 1 patch 1 patch Q72H TRANSDERM Last administered on 05/14/17 17:27 ; Admin Dose 1 PATCH; Start 05/11/17 at 16:30 Sodium Chloride (NS) 1,000 ml @ 0 mls/hr Q0M PRN IV TO KEEP SBP ABOVE 90; Start 05/12/17 at 08:24 Amiodarone HCl (Cordarone) 400 mg DAILY NGT Last administered on 05/17/17 09: 43; Admin Dose 400 MG; Start 05/16/17 at 09:00 CHARLES EMMANUEL May 17, 2017 11:27
--- NOTE | 2017-05-17 11:45 | CONS ---
Date/Time of Note Date/Time of Note DATE: 05/17/17 TIME: 11:44 Assessment/Plan Assessment/Plan Additional Assessment/Plan IMPRESSION: 1. Gastrointestinal bleeding. 2. History of esophageal stricture status post dilatation. 3. Status post coronary angiogram. 4. Renal failure on dialysis. 5. Thrombocytopenia. Platelet count is 31,000 6. Respiratory failure on vent. 7. Shock liver but now the liver function is back to normal. 8. Congestive heart failure, the ejection fraction is 35-40 percent. 9. Ventricular tachycardia, now in sinus rhythm on amiodarone. PLAN: 1. Continue present care. 2. Transfuse on a needed basis, keep the hemoglobin above 8 or 9. 3. Keep the platelet count above 50,000 to prevent bleeding. 4. Avoid blood thinner for the time being. 5. Continue with beta-abdon and GUANACO inhibitor, and continue with proton pump inhibitor. 6. Patient could not be weaned off ventilator. He may require tracheostomy 7. No further bleeding noted 8.wean him off respirator,pt and family declined tracheostomy. Consultation Date/Type/Reason Admit Date/Time Apr 29, 2017 at 19:31 Initial Consult Date 05/02/17 Type of Consultation: Pulmonary/critical care Referring Provider: YENNY WINSTON MD 24 HR Interval Summary Subjective hx not possible: pt non-verbal, pt critical Exam/Review of Systems Vital Signs Vitals Vital Signs Date Time Temp Pulse Resp B/P Pulse Ox O2 Delivery O2 Flow Rate FiO2 05/17/17 10:00 79 15 125/51 100 Mechanical Ventilator 05/17/17 08:00 100.6 05/16/17 08:00 30 Intake and Output 05/16/17 05/16/17 05/17/17 15:00 23:00 07:00 Intake Total 545.34 ml 491 ml 980 ml Output Total 3000 ml Balance 545.34 ml 491 ml -2020 ml Exam Constitutional: alert, oriented, well developed Psych: nl mood/affect, no complaints Head: atraumatic, normocephalic Eyes: EOMI, PERRL, nl conjunctiva, nl lids, nl sclera ENMT: nl external ears & nose, nl lips & teeth, nl nasal mucosa & septum Neck: non-tender, supple Respiratory: clear to auscultation, normal air movement Cardiovascular: nl pulses, regular rate and rhythm Gastrointestinal: nl liver, spleen, non-tender, soft Musculoskeletal: nl extremities to inspection, nl gait and stance Extremities: normal pulses Neurological: PERIODONTAL ASSISTANT II-XII intact, nl mental status, nl speech, nl strength Skin: nl turgor, No rash or lesions Lymph: nl lymph nodes Results Result Diagram: 05/17/17 04005/17/17 0400 Results 24 hrs Laboratory Tests Test 05/17/17 04:00 05/17/17 05:31 White Blood Count 8.5 # Red Blood Count 2.53 L Hemoglobin 8.3 L Hematocrit 24.6 L Mean Corpuscular Volume 97.2 Mean Corpuscular Hemoglobin 32.8 Mean Corpuscular Hemoglobin Concent 33.7 Red Cell Distribution Width 18.8 H Platelet Count 45 #L Mean Platelet Volume 13.2 H Neutrophils % 88.5 H Lymphocytes % 5.4 L Monocytes % 4.0 Eosinophils % 1.2 Basophils % 0.1 Nucleated Red Blood Cells % 0.0 Neutrophils # 7.5 Lymphocytes # 0.5 L Monocytes # 0.3 Eosinophils # 0.1 Basophils # 0.0 Nucleated Red Blood Cells # 0.0 Sodium Level 142 Potassium Level 4.0 Chloride Level 104 Carbon Dioxide Level 30 Anion Gap 12 Blood Urea Nitrogen 66 H Creatinine 5.54 H Glucose Level 110 Calcium Level 7.4 L Total Bilirubin 0.2 Direct Bilirubin 0.00 Indirect Bilirubin 0.2 Aspartate Amino Transf (AST/SGOT) 34 Alanine Aminotransferase (ALT/SGPT) 71 H Alkaline Phosphatase 189 H Total Protein 5.6 L Albumin 2.4 L Globulin 3.20 Albumin/Globulin Ratio 0.75 Lab Scanned Report BLOOD TRANSFUSION Medications Medications Current Medications Folic Acid (Folic Acid) 1 mg DAILY PO Last administered on 05/17/17 09:43; Admin Dose 1 MG; Start 04/30/17 at 09:00 Ondansetron HCl (Zofran Inj) 4 mg Q6H PRN IV NAUSEA AND/OR VOMITING Last administered on 05/03/17 23:24; Admin Dose 4 MG; Start 04/29/17 at 20:00 Nitroglycerin (Nitroglycerin (Sl Tab) 0.4 Mg) 1 tab Q5M PRN SL CHEST PAIN; Start 04/29/17 at 20:00 Acetaminophen (Tylenol Liquid) 650 mg Q6H PRN PO PAIN LEVEL 1-3 OR FEVER; Start 04/29/17 at 20:00 Acetaminophen (Tylenol Tab) 650 mg Q6H PRN PO PAIN LEVEL 1-3 OR FEVER; Start at 20:00 Acetaminophen/ Hydrocodone Bitart ([place] (5/325)) 1 tab Q6H PRN PO PAIN LEVEL 4 -6; Start 04/29/17 at 20:00 Zolpidem Tartrate (Ambien) 5 mg QHS PRN PO INSOMNIA; Start 04/29/17 at 20:00 Docusate Sodium (Colace) 100 mg Q12H PRN PO CONSTIPATION; Start 04/29/17 at 20: 00 Bisacodyl (Dulcolax) 5 mg DAILY PRN PO CONSTIPATION; Start 04/29/17 at 20:00 Aspirin 325 mg 325 mg DAILY PO Last administered on 05/13/17 11:24; Admin Dose 325 MG; Start 04/30/17 at 09:00; Status Future Hold Vasopressin 60 unit/Dextrose 60 ml @ 1.2 mls/hr Q12H IV Last administered on 01:07; Admin Dose 2.4 MLS/HR; Start 04/30/17 at 13:00 Phenylephrine HCl 80 mg/Dextrose 250 ml @ 18.75 mls/ hr TITRATE IV Last administered on 05/04/17 09:57; Admin Dose 31.87 MLS/HR; Start 04/30/17 at 18: 00 Norepinephrine/ Dextrose (Levophed/D5W) 250 ml @ 0.46 mls/hr TITRATE IV Last administered on 05/15/17 11:38; Admin Dose 0.93 MLS/HR; Start 04/30/17 at 18:00 Pantoprazole (Protonix Iv) 40 mg BID@06,18 IV Last administered on 05/17/17 05 :46; Admin Dose 40 MG; Start 05/02/17 at 18:00 Diphenhydramine HCl 25 mg 25 mg Q4H PRN IV ITCHING Last administered on 16:41; Admin Dose 25 MG; Start 05/02/17 at 08:30 Dobutamine HCl/ Dextrose 250 ml @ 4.755 mls/ hr TITRATE IV Last administered on 05/07/17 05:21; Admin Dose 3.804 MLS/HR; Start 05/03/17 at 09:30 Miscellaneous Information 1 ea NOTE XX ; Start 05/03/17 at 13:00 Glucose (Glutose) 15 gm Q15M PRN PO DECREASED GLUCOSE; Start 05/03/17 at 12:45 Glucose (Glutose) 22.5 gm Q15M PRN PO DECREASED GLUCOSE; Start 05/03/17 at 12: 45 Dextrose (D50w Syringe) 25 ml Q15M PRN IV DECREASED GLUCOSE Last administered on 05/03/17 12:48; Admin Dose 25 ML; Start 05/03/17 at 12:45 Dextrose (D50w Syringe) 50 ml Q15M PRN IV DECREASED GLUCOSE; Start 05/03/17 at 12:46 Glucagon (Glucagen) 1 mg Q15M PRN IM DECREASED GLUCOSE; Start 05/03/17 at 12:46 Glucose 15 gm 15 gm Q15M PRN BUCCAL DECREASED GLUCOSE; Start 05/03/17 at 12:46 Midazolam HCl 50 ml @ 1 mls/hr TITRATE IV Last administered on 05/16/17 05:10 ; Admin Dose 3 MLS/HR; Start 05/03/17 at 15:00 Dextrose/Sodium Chloride (D5-NS) 1,000 ml @ 20 mls/hr Q24H IV Last administered on 05/17/17 09:20; Admin Dose 20 MLS/HR; Start 05/03/17 at 16:00 Metoclopramide HCl (Reglan) 5 mg Q6 IV Last administered on 05/17/17 05:46; Admin Dose 5 MG; Start 05/04/17 at 12:00 Nystatin 5 ml 5 ml QID PO Last administered on 05/17/17 09:44; Admin Dose 5 ML ; Start 05/04/17 at 13:00 Fentanyl (Sublimaze) 100 ml @ 5 mls/hr TITRATE IV Last administered on 05:11; Admin Dose 4 MLS/HR; Start 05/06/17 at 08:30 Eye Lubricant (Akwa Oint) 1 applic Q4 PRN BOTH EYES dryness Last administered on 05/08/17 08:59; Admin Dose 1 APPLIC; Start 05/07/17 at 13:00 Miscellaneous Information (Pending [facility] Order For Wound Care) This patient otto... PRN PRN XX WOUND CARE; Start 05/07/17 at 13:30 Carvedilol (Coreg) 3.125 mg BID PO Last administered on 05/17/17 09:44; Admin Dose 3.125 MG; Start 05/09/17 at 21:00 Lisinopril (Zestril) 2.5 mg DAILY PO Last administered on 05/17/17 09:44; Admin Dose 2.5 MG; Start 05/10/17 at 09:00 Morphine Sulfate (morphine) 1 mg Q4H PRN IV pain; Start 05/10/17 at 09:00 Scopolamine 1 patch 1 patch Q72H TRANSDERM Last administered on 05/14/17 17:27 ; Admin Dose 1 PATCH; Start 05/11/17 at 16:30 Sodium Chloride (NS) 1,000 ml @ 0 mls/hr Q0M PRN IV TO KEEP SBP ABOVE 90; Start 05/12/17 at 08:24 Amiodarone HCl (Cordarone) 400 mg DAILY NGT Last administered on 05/17/17 09: 43; Admin Dose 400 MG; Start 05/16/17 at 09:00 KASSI HOLLAND MD May 17, 2017 11:45
--- NOTE | 2017-05-17 12:24 | CONS ---
Date/Time of Note Date/Time of Note DATE: 05/17/17 TIME: 12:22 Assessment/Plan Assessment/Plan Additional Assessment/Plan 1.Acute TN-now downtrended cardiac enzymes without signs of ongoing myocardial necrosis. Now s/p LHC with patent SVG to RCA and [place] Ramus/LAD. All other grafts occluded - med rx advised now. 2.Shock-off Levo gtt now - tolerated HD 3.VT-now in SR on amio PO - will follow clinically 4.resp failure s/p re-intubation - consideration of trach 5.renal failure-on HD 6. Leukocytosis 7. Thrombocytopenia-again worsening 8. Shock liver-improving 9. CHF-systolic acute on chronic likely with EF 20% by intial Echo. Most recent echo 35-40% 10. Anemia- acute worsening, ? etiology RP bleed 11. Hypotension-now back on levo Consultation Date/Type/Reason Admit Date/Time Apr 29, 2017 at 19:31 Type of Consultation: Pulmonary/critical care Referring Provider: YENNY WINSTON MD 24 HR Interval Summary Free Text/Dictation Off levo gtt, stable - in consideration of trach - no rev CAD ROS: No fever, no chills, no nausea, no vomiting, no diarrhea/constipation No recent weight changes No chest pain, no PND, no orthopnea + SOB No dizziness, blurred vision No thirst, no heat or cold intolerance Exam/Review of Systems Vital Signs Vitals Vital Signs Date Time Temp Pulse Resp B/P Pulse Ox O2 Delivery O2 Flow Rate FiO2 05/17/17 10:00 79 15 125/51 100 Mechanical Ventilator 05/17/17 08:00 100.6 05/16/17 08:00 30 Intake and Output 05/16/17 05/16/17 05/17/17 15:00 23:00 07:00 Intake Total 545.34 ml 491 ml 980 ml Output Total 3000 ml Balance 545.34 ml 491 ml -2020 ml Exam General: WN/WD/NAD, AOx 2-3 HEENT: Unicetric/atraumatic/EOMI ( follow commands), intub NECK: JVD elevated, no thyromegaly Lymph: no lymphadenopathy HEART: regular with no S3, II/ systolic murmur at apex, PMI L LUNGS: Coarse sounds ABD: soft, NT, ND, +BS : Intact Neuro: non focal SKIN: chronic changes EXT: trace edema Results Result Diagram: 05/17/17 0400 05/17/17 0400 Results 24 hrs Laboratory Tests Test 05/17/17 04:00 05/17/17 05:31 White Blood Count 8.5 # Red Blood Count 2.53 L Hemoglobin 8.3 L Hematocrit 24.6 L Mean Corpuscular Volume 97.2 Mean Corpuscular Hemoglobin 32.8 Mean Corpuscular Hemoglobin Concent 33.7 Red Cell Distribution Width 18.8 H Platelet Count 45 #L Mean Platelet Volume 13.2 H Neutrophils % 88.5 H Lymphocytes % 5.4 L Monocytes % 4.0 Eosinophils % 1.2 Basophils % 0.1 Nucleated Red Blood Cells % 0.0 Neutrophils # 7.5 Lymphocytes # 0.5 L Monocytes # 0.3 Eosinophils # 0.1 Basophils # 0.0 Nucleated Red Blood Cells # 0.0 Sodium Level 142 Potassium Level 4.0 Chloride Level 104 Carbon Dioxide Level 30 Anion Gap 12 Blood Urea Nitrogen 66 H Creatinine 5.54 H Glucose Level 110 Calcium Level 7.4 L Total Bilirubin 0.2 Direct Bilirubin 0.00 Indirect Bilirubin 0.2 Aspartate Amino Transf (AST/SGOT) 34 Alanine Aminotransferase (ALT/SGPT) 71 H Alkaline Phosphatase 189 H Total Protein 5.6 L Albumin 2.4 L Globulin 3.20 Albumin/Globulin Ratio 0.75 Lab Scanned Report BLOOD TRANSFUSION Medications Medications Current Medications Folic Acid (Folic Acid) 1 mg DAILY PO Last administered on 05/17/17 09:43; Admin Dose 1 MG; Start 04/30/17 at 09:00 Ondansetron HCl (Zofran Inj) 4 mg Q6H PRN IV NAUSEA AND/OR VOMITING Last administered on 05/03/17 23:24; Admin Dose 4 MG; Start 04/29/17 at 20:00 Nitroglycerin (Nitroglycerin (Sl Tab) 0.4 Mg) 1 tab Q5M PRN SL CHEST PAIN; Start 04/29/17 at 20:00 Acetaminophen (Tylenol Liquid) 650 mg Q6H PRN PO PAIN LEVEL 1-3 OR FEVER; Start 04/29/17 at 20:00 Acetaminophen (Tylenol Tab) 650 mg Q6H PRN PO PAIN LEVEL 1-3 OR FEVER; Start at 20:00 Acetaminophen/ Hydrocodone Bitart ([place] (5/325)) 1 tab Q6H PRN PO PAIN LEVEL 4 -6; Start 04/29/17 at 20:00 Zolpidem Tartrate (Ambien) 5 mg QHS PRN PO INSOMNIA; Start 04/29/17 at 20:00 Docusate Sodium (Colace) 100 mg Q12H PRN PO CONSTIPATION; Start 04/29/17 at 20: 00 Bisacodyl (Dulcolax) 5 mg DAILY PRN PO CONSTIPATION; Start 04/29/17 at 20:00 Aspirin 325 mg 325 mg DAILY PO Last administered on 05/13/17 11:24; Admin Dose 325 MG; Start 04/30/17 at 09:00; Status Future Hold Vasopressin 60 unit/Dextrose 60 ml @ 1.2 mls/hr Q12H IV Last administered on 01:07; Admin Dose 2.4 MLS/HR; Start 04/30/17 at 13:00 Phenylephrine HCl 80 mg/Dextrose 250 ml @ 18.75 mls/ hr TITRATE IV Last administered on 05/04/17 09:57; Admin Dose 31.87 MLS/HR; Start 04/30/17 at 18: 00 Norepinephrine/ Dextrose (Levophed/D5W) 250 ml @ 0.46 mls/hr TITRATE IV Last administered on 05/15/17 11:38; Admin Dose 0.93 MLS/HR; Start 04/30/17 at 18:00 Pantoprazole (Protonix Iv) 40 mg BID@06,18 IV Last administered on 05/17/17 05 :46; Admin Dose 40 MG; Start 05/02/17 at 18:00 Diphenhydramine HCl 25 mg 25 mg Q4H PRN IV ITCHING Last administered on 16:41; Admin Dose 25 MG; Start 05/02/17 at 08:30 Dobutamine HCl/ Dextrose 250 ml @ 4.755 mls/ hr TITRATE IV Last administered on 05/07/17 05:21; Admin Dose 3.804 MLS/HR; Start 05/03/17 at 09:30 Miscellaneous Information 1 ea NOTE XX ; Start 05/03/17 at 13:00 Glucose (Glutose) 15 gm Q15M PRN PO DECREASED GLUCOSE; Start 05/03/17 at 12:45 Glucose (Glutose) 22.5 gm Q15M PRN PO DECREASED GLUCOSE; Start 05/03/17 at 12: 45 Dextrose (D50w Syringe) 25 ml Q15M PRN IV DECREASED GLUCOSE Last administered on 05/03/17 12:48; Admin Dose 25 ML; Start 05/03/17 at 12:45 Dextrose (D50w Syringe) 50 ml Q15M PRN IV DECREASED GLUCOSE; Start 05/03/17 at 12:46 Glucagon (Glucagen) 1 mg Q15M PRN IM DECREASED GLUCOSE; Start 05/03/17 at 12:46 Glucose 15 gm 15 gm Q15M PRN BUCCAL DECREASED GLUCOSE; Start 05/03/17 at 12:46 Midazolam HCl 50 ml @ 1 mls/hr TITRATE IV Last administered on 05/16/17 05:10 ; Admin Dose 3 MLS/HR; Start 05/03/17 at 15:00 Dextrose/Sodium Chloride (D5-NS) 1,000 ml @ 20 mls/hr Q24H IV Last administered on 05/17/17 09:20; Admin Dose 20 MLS/HR; Start 05/03/17 at 16:00 Metoclopramide HCl (Reglan) 5 mg Q6 IV Last administered on 05/17/17 05:46; Admin Dose 5 MG; Start 05/04/17 at 12:00 Nystatin 5 ml 5 ml QID PO Last administered on 05/17/17 09:44; Admin Dose 5 ML ; Start 05/04/17 at 13:00 Fentanyl (Sublimaze) 100 ml @ 5 mls/hr TITRATE IV Last administered on 05:11; Admin Dose 4 MLS/HR; Start 05/06/17 at 08:30 Eye Lubricant (Akwa Oint) 1 applic Q4 PRN BOTH EYES dryness Last administered on 05/08/17 08:59; Admin Dose 1 APPLIC; Start 05/07/17 at 13:00 Miscellaneous Information (Pending [facility] Order For Wound Care) This patient otto... PRN PRN XX WOUND CARE; Start 05/07/17 at 13:30 Carvedilol (Coreg) 3.125 mg BID PO Last administered on 05/17/17 09:44; Admin Dose 3.125 MG; Start 05/09/17 at 21:00 Lisinopril (Zestril) 2.5 mg DAILY PO Last administered on 05/17/17 09:44; Admin Dose 2.5 MG; Start 05/10/17 at 09:00 Morphine Sulfate (morphine) 1 mg Q4H PRN IV pain; Start 05/10/17 at 09:00 Scopolamine 1 patch 1 patch Q72H TRANSDERM Last administered on 05/14/17 17:27 ; Admin Dose 1 PATCH; Start 05/11/17 at 16:30 Sodium Chloride (NS) 1,000 ml @ 0 mls/hr Q0M PRN IV TO KEEP SBP ABOVE 90; Start 05/12/17 at 08:24 Amiodarone HCl (Cordarone) 400 mg DAILY NGT Last administered on 05/17/17 09: 43; Admin Dose 400 MG; Start 05/16/17 at 09:00 CANDACE CARTWRIGHT MD May 17, 2017 12:24
--- NOTE | 2017-05-17 14:50 | PN ---
DATE: 05/17/2017 SUBJECTIVE DATA: No acute events. Patient is awake and comfortable on vent. T-max a 100.6. T current 99.9. Pulse 70, respirations 18, blood pressure 116/47, saturation 100 on vent. LABORATORY AND DIAGNOSTIC DATA: WBC 8.5, H and H 8.3 and 24.6, platelets 45, neutrophils 88.5. BUN 66, creatinine 5.54. INDWELLINGS: Endotracheal tube, NG tube, left upper extremity AV fistula, right femoral triple lumen catheter. PHYSICAL EXAMINATION: GENERAL: This is a chronically ill-appearing, fragile, elderly man who is awake, in no distress. HEENT: Head atraumatic, normocephalic. Sclerae anicteric. Buccal mucosa dry. NECK: Supple. CHEST: Rise symmetrical. Breath sounds diminished at the bases. HEART: S1, S2. ABDOMEN: Soft, bowel sounds present. EXTREMITIES: With trace edema. ASSESSMENT: 1. Status post shock, multifactorial. 2. Status post pneumonia and streptococcal bacteremia. 3. Acute myocardial infarction, status post left heart catheterization on 05/13/2017. 4. History of coronary artery bypass grafting. 5. End-stage renal disease, hemodialysis dependent. PLAN: The patient remains stable. Antibiotics were discontinued yesterday. He is being followed by multiple consultants. Pending tracheostomy. Pending right femoral catheter discontinuation and placement of new one. Dictated By: Chelly Hudson NP /valarie/jayme /Document#: [id number]
[2017-05-17] MEDS: SCOPOLAMINE 1.5 MG PATCH TRANSDERM SCH (17:08)
[2017-05-17] MEDS: DIPHENHYDRAMINE 50 MG INJ IV PRN (18:01)
--- NOTE | 2017-05-17 19:13 | PN ---
Date/Time of Note Date/Time of Note DATE: 05/17/17 TIME: 19:10 Assessment/Plan VTE Prophylaxis VTE Prophylaxis Intervention: other Lines/Catheters IV Catheter Type (from Nrs): Central Line Central line still needed: Yes Urinary Cath still in place: No Reason Cath still needed: other (indicate) Assessment/Plan Chief Complaint/Hosp Course A/P NSTEMI S/P V TACH ESRD PUL EDEMA BETTER SHOCK LIVER BETTER PNEUMONIA SYS HEAR T FAILURE BETTERE ANEMIA LOW PLATELET VDRF S/P CATH NO PCI LOW EF BETTER PER DR SIMON DVT ARM ESOPHAGIAL DILATITION PER GI HX EDEMA ARMS PLANCONTINUE HD weaning per family Problems: Subjective 24 Hr Interval Summary Subjective hx not possible: other (on vent awake,pt reufused trac but family wants trac) Exam/Review of Systems Vital Signs Vitals Vital Signs Date Time Temp Pulse Resp B/P Pulse Ox O2 Delivery O2 Flow Rate FiO2 05/17/17 18:00 72 19 107/37 100 Mechanical Ventilator 05/17/17 16:00 100.6 05/17/17 08:00 30 Intake and Output 05/16/17 05/16/17 05/17/17 15:00 23:00 07:00 Intake Total 545.34 ml 491 ml 1090 ml Output Total 3000 ml Balance 545.34 ml 491 ml -1910 ml Exam Neck: supple Respiratory: diminished breath sounds Cardiovascular: regular rate and rhythm Gastrointestinal: bowel sounds (+), soft Musculoskeletal: muscle weakness Extremities: edema (+) Results Result Diagram: 05/17/17 0400 05/17/17 0400 Results 24 hrs Laboratory Tests Test 05/17/17 04:00 05/17/17 05:31 White Blood Count 8.5 # Red Blood Count 2.53 L Hemoglobin 8.3 L Hematocrit 24.6 L Mean Corpuscular Volume 97.2 Mean Corpuscular Hemoglobin 32.8 Mean Corpuscular Hemoglobin Concent 33.7 Red Cell Distribution Width 18.8 H Platelet Count 45 #L Mean Platelet Volume 13.2 H Neutrophils % 88.5 H Lymphocytes % 5.4 L Monocytes % 4.0 Eosinophils % 1.2 Basophils % 0.1 Nucleated Red Blood Cells % 0.0 Neutrophils # 7.5 Lymphocytes # 0.5 L Monocytes # 0.3 Eosinophils # 0.1 Basophils # 0.0 Nucleated Red Blood Cells # 0.0 Sodium Level 142 Potassium Level 4.0 Chloride Level 104 Carbon Dioxide Level 30 Anion Gap 12 Blood Urea Nitrogen 66 H Creatinine 5.54 H Glucose Level 110 Calcium Level 7.4 L Total Bilirubin 0.2 Direct Bilirubin 0.00 Indirect Bilirubin 0.2 Aspartate Amino Transf (AST/SGOT) 34 Alanine Aminotransferase (ALT/SGPT) 71 H Alkaline Phosphatase 189 H Total Protein 5.6 L Albumin 2.4 L Globulin 3.20 Albumin/Globulin Ratio 0.75 Lab Scanned Report BLOOD TRANSFUSION Medications Medications Current Medications Folic Acid (Folic Acid) 1 mg DAILY PO Last administered on 05/17/17 09:43; Admin Dose 1 MG; Start 04/30/17 at 09:00 Ondansetron HCl (Zofran Inj) 4 mg Q6H PRN IV NAUSEA AND/OR VOMITING Last administered on 05/03/17 23:24; Admin Dose 4 MG; Start 04/29/17 at 20:00 Nitroglycerin (Nitroglycerin (Sl Tab) 0.4 Mg) 1 tab Q5M PRN SL CHEST PAIN; Start 04/29/17 at 20:00 Acetaminophen (Tylenol Liquid) 650 mg Q6H PRN PO PAIN LEVEL 1-3 OR FEVER; Start 04/29/17 at 20:00 Acetaminophen (Tylenol Tab) 650 mg Q6H PRN PO PAIN LEVEL 1-3 OR FEVER; Start at 20:00 Acetaminophen/ Hydrocodone Bitart ([place] (5/325)) 1 tab Q6H PRN PO PAIN LEVEL 4 -6; Start 04/29/17 at 20:00 Zolpidem Tartrate (Ambien) 5 mg QHS PRN PO INSOMNIA; Start 04/29/17 at 20:00 Docusate Sodium (Colace) 100 mg Q12H PRN PO CONSTIPATION; Start 04/29/17 at 20: 00 Bisacodyl (Dulcolax) 5 mg DAILY PRN PO CONSTIPATION; Start 04/29/17 at 20:00 Aspirin 325 mg 325 mg DAILY PO Last administered on 05/13/17 11:24; Admin Dose 325 MG; Start 04/30/17 at 09:00; Status Future Hold Vasopressin 60 unit/Dextrose 60 ml @ 1.2 mls/hr Q12H IV Last administered on 01:07; Admin Dose 2.4 MLS/HR; Start 04/30/17 at 13:00 Phenylephrine HCl 80 mg/Dextrose 250 ml @ 18.75 mls/ hr TITRATE IV Last administered on 05/04/17 09:57; Admin Dose 31.87 MLS/HR; Start 04/30/17 at 18: 00 Norepinephrine/ Dextrose (Levophed/D5W) 250 ml @ 0.46 mls/hr TITRATE IV Last administered on 05/15/17 11:38; Admin Dose 0.93 MLS/HR; Start 04/30/17 at 18:00 Pantoprazole (Protonix Iv) 40 mg BID@06,18 IV Last administered on 05/17/17 17 :08; Admin Dose 40 MG; Start 05/02/17 at 18:00 Diphenhydramine HCl 25 mg 25 mg Q4H PRN IV ITCHING Last administered on 18:01; Admin Dose 25 MG; Start 05/02/17 at 08:30 Dobutamine HCl/ Dextrose 250 ml @ 4.755 mls/ hr TITRATE IV Last administered on 05/07/17 05:21; Admin Dose 3.804 MLS/HR; Start 05/03/17 at 09:30 Miscellaneous Information 1 ea NOTE XX ; Start 05/03/17 at 13:00 Glucose (Glutose) 15 gm Q15M PRN PO DECREASED GLUCOSE; Start 05/03/17 at 12:45 Glucose (Glutose) 22.5 gm Q15M PRN PO DECREASED GLUCOSE; Start 05/03/17 at 12: 45 Dextrose (D50w Syringe) 25 ml Q15M PRN IV DECREASED GLUCOSE Last administered on 05/03/17 12:48; Admin Dose 25 ML; Start 05/03/17 at 12:45 Dextrose (D50w Syringe) 50 ml Q15M PRN IV DECREASED GLUCOSE; Start 05/03/17 at 12:46 Glucagon (Glucagen) 1 mg Q15M PRN IM DECREASED GLUCOSE; Start 05/03/17 at 12:46 Glucose 15 gm 15 gm Q15M PRN BUCCAL DECREASED GLUCOSE; Start 05/03/17 at 12:46 Midazolam HCl 50 ml @ 1 mls/hr TITRATE IV Last administered on 05/16/17 05:10 ; Admin Dose 3 MLS/HR; Start 05/03/17 at 15:00 Dextrose/Sodium Chloride (D5-NS) 1,000 ml @ 20 mls/hr Q24H IV Last administered on 05/17/17 09:20; Admin Dose 20 MLS/HR; Start 05/03/17 at 16:00 Metoclopramide HCl (Reglan) 5 mg Q6 IV Last administered on 05/17/17 17:08; Admin Dose 5 MG; Start 05/04/17 at 12:00 Nystatin 5 ml 5 ml QID PO Last administered on 05/17/17 17:08; Admin Dose 5 ML ; Start 05/04/17 at 13:00 Fentanyl (Sublimaze) 100 ml @ 5 mls/hr TITRATE IV Last administered on 05:11; Admin Dose 4 MLS/HR; Start 05/06/17 at 08:30 Eye Lubricant (Akwa Oint) 1 applic Q4 PRN BOTH EYES dryness Last administered on 05/08/17 08:59; Admin Dose 1 APPLIC; Start 05/07/17 at 13:00 Miscellaneous Information [facility]) This patient otto... PRN PRN XX WOUND CARE; Start 05/07/17 at 13:30 Carvedilol (Coreg) 3.125 mg BID PO Last administered on 05/17/17 09:44; Admin Dose 3.125 MG; Start 05/09/17 at 21:00 Lisinopril (Zestril) 2.5 mg DAILY PO Last administered on 05/17/17 09:44; Admin Dose 2.5 MG; Start 05/10/17 at 09:00 Morphine Sulfate (morphine) 1 mg Q4H PRN IV pain; Start 05/10/17 at 09:00 Scopolamine 1 patch 1 patch Q72H TRANSDERM Last administered on 05/17/17 17:08 ; Admin Dose 1 PATCH; Start 05/11/17 at 16:30 Sodium Chloride (NS) 1,000 ml @ 0 mls/hr Q0M PRN IV TO KEEP SBP ABOVE 90; Start 05/12/17 at 08:24 Amiodarone HCl 400 mg 400 mg DAILY NGT Last administered on 05/17/17 09:43; Admin Dose 400 MG; Start 05/16/17 at 09:00 Albumin Human (Albumin Human 25%) 100 ml @ 100 mls/hr DAILY IV ; Start at 09:00; Stop 05/22/17 at 08:59 YENNY WINSTON MD May 17, 2017 19:12
--- NOTE | 2017-05-17 20:10 | PN ---
Date/Time of Note Date/Time of Note DATE: 05/17/17 TIME: 20:09 Assessment/Plan Lines/Catheters IV Catheter Type (from Nrsg): Central Line Campos in Place (from Nrsg): No Assessment/Plan Chief Complaint/Hosp Course IMPRESSION: Respiratory failure. RECOMMENDATIONS: We will proceed with placement of a tracheostomy when the family is agreeable. Problems: Subjective 24 Hr Interval Summary Constitutional: improved Pain Control: mild Exam/Review of Systems Vital Signs Vitals Vital Signs Date Time Temp Pulse Resp B/P Pulse Ox O2 Delivery O2 Flow Rate FiO2 05/17/17 18:00 72 19 107/37 100 Mechanical Ventilator 05/17/17 16:00 100.6 05/17/17 08:00 30 Intake and Output 05/16/17 05/16/17 05/17/17 15:00 23:00 07:00 Intake Total 545.34 ml 491 ml 1090 ml Output Total 3000 ml Balance 545.34 ml 491 ml -1910 ml Exam ENMT: mucosa pink and moist, nl external ears & nose, nl lips & teeth, nl nasal mucosa & septum Neck: non-tender, supple Respiratory: clear to auscultation, normal air movement Cardiovascular: nl pulses, regular rate and rhythm Results Result Diagram: 05/17/1739905/17/17399 KATHARINA ALLISON MD May 17, 2017 20:10
--- NOTE | 2017-05-17 21:21 | CONS ---
Date/Time of Note Date/Time of Note DATE: 05/17/17 TIME: 21:14 Assessment/Plan Assessment/Plan Chief Complaint/Hosp Course #Thrombocytopenia -now in 45. pt with slight oozing from oropharynx -ASA on hold for platelet count < 50K -will continue to check daily DIC panel and transfuse 1 unit cryo if fibrinogen is < 150. fibrinogen is currently around 300 -pt was able to tolerate cardiac cath without bleeding issues #Anemia - Hg 8.3 -continue to monitor #Cardiogenic shock with shock liver -management per cardiology -pt is s/p left heart cath -off Levophed #ESRD wit acidosis -continue HD as tolerated. currently blood pressure is very labile #Respiratory failure -patient remains intubated -management per pulmonary Problems: Consultation Date/Type/Reason Admit Date/Time Apr 29, 2017 at 19:31 Initial Consult Date 05/02/17 Type of Consultation: Hematology Reason for Consultation thombocytopenia Referring Provider: YENNY WINSTON MD 24 HR Interval Summary Free Text/Dictation pt remains off pressors. received platelet transfusion yesterday. still with slight oozing fro oropharynx. continues on HD.family considering tracheostomy today Exam/Review of Systems Vital Signs Vitals Vital Signs Date Time Temp Pulse Resp B/P Pulse Ox O2 Delivery O2 Flow Rate FiO2 05/17/17 21:00 74 23 87/55 100 Mechanical Ventilator 05/17/17 16:00 100.6 05/17/17 08:00 30 Intake and Output 05/16/17 05/16/17 05/17/17 15:00 23:00 07:00 Intake Total 545.34 ml 491 ml 1090 ml Output Total 3000 ml Balance 545.34 ml 491 ml -1910 ml Exam Constitutional: non-verbal Psych: confusion, no complaints Head: normocephalic Eyes: nl conjunctiva ENMT: intubated, nl external ears & nose, other (oozing from oropharynx) Neck: supple Respiratory: clear to auscultation Cardiovascular: regular rate and rhythm Gastrointestinal: soft Results Result Diagram: 05/17/17 0400 05/17/17 0400 Results 24 hrs Laboratory Tests Test 05/17/17 04:00 05/17/17 05:31 White Blood Count 8.5 # Red Blood Count 2.53 L Hemoglobin 8.3 L Hematocrit 24.6 L Mean Corpuscular Volume 97.2 Mean Corpuscular Hemoglobin 32.8 Mean Corpuscular Hemoglobin Concent 33.7 Red Cell Distribution Width 18.8 H Platelet Count 45 #L Mean Platelet Volume 13.2 H Neutrophils % 88.5 H Lymphocytes % 5.4 L Monocytes % 4.0 Eosinophils % 1.2 Basophils % 0.1 Nucleated Red Blood Cells % 0.0 Neutrophils # 7.5 Lymphocytes # 0.5 L Monocytes # 0.3 Eosinophils # 0.1 Basophils # 0.0 Nucleated Red Blood Cells # 0.0 Sodium Level 142 Potassium Level 4.0 Chloride Level 104 Carbon Dioxide Level 30 Anion Gap 12 Blood Urea Nitrogen 66 H Creatinine 5.54 H Glucose Level 110 Calcium Level 7.4 L Total Bilirubin 0.2 Direct Bilirubin 0.00 Indirect Bilirubin 0.2 Aspartate Amino Transf (AST/SGOT) 34 Alanine Aminotransferase (ALT/SGPT) 71 H Alkaline Phosphatase 189 H Total Protein 5.6 L Albumin 2.4 L Globulin 3.20 Albumin/Globulin Ratio 0.75 Lab Scanned Report BLOOD TRANSFUSION Medications Medications Current Medications Folic Acid (Folic Acid) 1 mg DAILY PO Last administered on 05/17/17 09:43; Admin Dose 1 MG; Start 04/30/17 at 09:00 Ondansetron HCl (Zofran Inj) 4 mg Q6H PRN IV NAUSEA AND/OR VOMITING Last administered on 05/03/17 23:24; Admin Dose 4 MG; Start 04/29/17 at 20:00 Nitroglycerin (Nitroglycerin (Sl Tab) 0.4 Mg) 1 tab Q5M PRN SL CHEST PAIN; Start 04/29/17 at 20:00 Acetaminophen (Tylenol Liquid) 650 mg Q6H PRN PO PAIN LEVEL 1-3 OR FEVER; Start 04/29/17 at 20:00 Acetaminophen (Tylenol Tab) 650 mg Q6H PRN PO PAIN LEVEL 1-3 OR FEVER; Start at 20:00 Acetaminophen/ Hydrocodone Bitart ([place] (5/325)) 1 tab Q6H PRN PO PAIN LEVEL 4 -6; Start 04/29/17 at 20:00 Zolpidem Tartrate (Ambien) 5 mg QHS PRN PO INSOMNIA; Start 04/29/17 at 20:00 Docusate Sodium (Colace) 100 mg Q12H PRN PO CONSTIPATION; Start 04/29/17 at 20: 00 Bisacodyl (Dulcolax) 5 mg DAILY PRN PO CONSTIPATION; Start 04/29/17 at 20:00 Aspirin 325 mg 325 mg DAILY PO Last administered on 05/13/17 11:24; Admin Dose 325 MG; Start 04/30/17 at 09:00; Status Future Hold Vasopressin 60 unit/Dextrose 60 ml @ 1.2 mls/hr Q12H IV Last administered on 01:07; Admin Dose 2.4 MLS/HR; Start 04/30/17 at 13:00 Phenylephrine HCl 80 mg/Dextrose 250 ml @ 18.75 mls/ hr TITRATE IV Last administered on 05/04/17 09:57; Admin Dose 31.87 MLS/HR; Start 04/30/17 at 18: 00 Norepinephrine/ Dextrose (Levophed/D5W) 250 ml @ 0.46 mls/hr TITRATE IV Last administered on 05/15/17 11:38; Admin Dose 0.93 MLS/HR; Start 04/30/17 at 18:00 Pantoprazole (Protonix Iv) 40 mg BID@06,18 IV Last administered on 05/17/17 17 :08; Admin Dose 40 MG; Start 05/02/17 at 18:00 Diphenhydramine HCl 25 mg 25 mg Q4H PRN IV ITCHING Last administered on 18:01; Admin Dose 25 MG; Start 05/02/17 at 08:30 Dobutamine HCl/ Dextrose 250 ml @ 4.755 mls/ hr TITRATE IV Last administered on 05/07/17 05:21; Admin Dose 3.804 MLS/HR; Start 05/03/17 at 09:30 Miscellaneous Information 1 ea NOTE XX ; Start 05/03/17 at 13:00 Glucose (Glutose) 15 gm Q15M PRN PO DECREASED GLUCOSE; Start 05/03/17 at 12:45 Glucose (Glutose) 22.5 gm Q15M PRN PO DECREASED GLUCOSE; Start 05/03/17 at 12: 45 Dextrose (D50w Syringe) 25 ml Q15M PRN IV DECREASED GLUCOSE Last administered on 05/03/17 12:48; Admin Dose 25 ML; Start 05/03/17 at 12:45 Dextrose (D50w Syringe) 50 ml Q15M PRN IV DECREASED GLUCOSE; Start 05/03/17 at 12:46 Glucagon (Glucagen) 1 mg Q15M PRN IM DECREASED GLUCOSE; Start 05/03/17 at 12:46 Glucose 15 gm 15 gm Q15M PRN BUCCAL DECREASED GLUCOSE; Start 05/03/17 at 12:46 Midazolam HCl 50 ml @ 1 mls/hr TITRATE IV Last administered on 05/16/17 05:10 ; Admin Dose 3 MLS/HR; Start 05/03/17 at 15:00 Dextrose/Sodium Chloride (D5-NS) 1,000 ml @ 20 mls/hr Q24H IV Last administered on 05/17/17 09:20; Admin Dose 20 MLS/HR; Start 05/03/17 at 16:00 Metoclopramide HCl (Reglan) 5 mg Q6 IV Last administered on 05/17/17 17:08; Admin Dose 5 MG; Start 05/04/17 at 12:00 Nystatin 5 ml 5 ml QID PO Last administered on 05/17/17 17:08; Admin Dose 5 ML ; Start 05/04/17 at 13:00 Fentanyl (Sublimaze) 100 ml @ 5 mls/hr TITRATE IV Last administered on 05:11; Admin Dose 4 MLS/HR; Start 05/06/17 at 08:30 Eye Lubricant (Akwa Oint) 1 applic Q4 PRN BOTH EYES dryness Last administered on 05/08/17 08:59; Admin Dose 1 APPLIC; Start 05/07/17 at 13:00 [facility]isc[facility] This patient otto... PRN PRN XX WOUND CARE; Start 05/07/17 at 13:30 Carvedilol (Coreg) 3.125 mg BID PO Last administered on 05/17/17 09:44; Admin Dose 3.125 MG; Start 05/09/17 at 21:00 Lisinopril (Zestril) 2.5 mg DAILY PO Last administered on 05/17/17 09:44; Admin Dose 2.5 MG; Start 05/10/17 at 09:00 Morphine Sulfate (morphine) 1 mg Q4H PRN IV pain; Start 05/10/17 at 09:00 Scopolamine 1 patch 1 patch Q72H TRANSDERM Last administered on 05/17/17 17:08 ; Admin Dose 1 PATCH; Start 05/11/17 at 16:30 Sodium Chloride (NS) 1,000 ml @ 0 mls/hr Q0M PRN IV TO KEEP SBP ABOVE 90; Start 05/12/17 at 08:24 Amiodarone HCl 400 mg 400 mg DAILY NGT Last administered on 05/17/17 09:43; Admin Dose 400 MG; Start 05/16/17 at 09:00 Albumin Human (Albumin Human 25%) 100 ml @ 100 mls/hr DAILY IV ; Start at 09:00; Stop 05/22/17 at 08:59 JEFF HANSON M.D. May 17, 2017 21:21
[2017-05-17] MEDS: BALSAM PERU/CASTOR OIL 60 GM TUBE TOP SCH (21:31)
[2017-05-18] VITALS (61 sets, daily range): BP systolic 72–165; BP diastolic 37–118; PULSE 62–98; RESP 13–29
[2017-05-18] MEDS: ALBUTEROL 18 GM INHALER INH SCH ×4 (01:22→19:25)
[2017-05-18] MEDS: IPRATROPIUM (HFA) 12.9 GM INHALER INH SCH ×4 (01:22→19:25)
[2017-05-18] MEDS: METOCLOPRAMIDE 10 MG INJ IV SCH ×3 (05:03→17:37)
[2017-05-18] MEDS: PANTOPRAZOLE 40 MG INJ IV SCH ×2 (05:03→17:37)
[2017-05-18 05:19] LABS: ABNORMAL IP MESSAGE 1; EOSINOPHILS # 0.1 10^3/ul (0.0-0.5); EOSINOPHILS % 1.5 % (0.0-7.0); HEMATOCRIT 23.9 % (42.0-52.0); HEMOGLOBIN 7.9 g/dl (14.0-18.0); LYMPHOCYTES # 0.4 10^3/ul (0.8-2.9); LYMPHOCYTES % 6.4 % (15.0-51.0); MEAN CORPUSCULAR HEMOGLOBIN 32.1 pg (29.0-33.0); MEAN CORPUSCULAR HGB CONC 33.1 g/dl (32.0-37.0); MEAN CORPUSCULAR VOLUME 97.2 fl (82.0-101.0); MONOCYTE # 0.3 10^3/ul (0.3-0.9); MONOCYTES % 5.1 % (0.0-11.0); NEUTROPHIL # 5.3 10^3/ul (1.6-7.5); NEUTROPHILS % 86.5 % (39.0-77.0); POSITIVE DIFF @See below; RED BLOOD COUNT 2.46 10^6/ul (4.70-6.10); RED CELL DISTRIBUTION WIDTH 18.6 % (11.5-14.5); WHITE BLOOD COUNT 6.1 10^3/ul (4.8-10.8)
[2017-05-18 05:47] LABS: ALBUMIN 2.4 g/dl (3.3-4.9); ALBUMIN/GLOBULIN RATIO 0.7; BILIRUBIN,INDIRECT 0.3 mg/dl (0-1.1); BILIRUBIN,TOTAL 0.3 mg/dl (0.2-1.3); CALCIUM 8.6 mg/dl (8.4-10.2); CREATININE 4.71 mg/dl (0.61-1.24); POTASSIUM 3.7 mmol/L (3.5-5.1); TOTAL PROTEIN 5.8 g/dl (6.1-8.1)
[2017-05-18 06:21] LABS: PLATELET COUNT 30 10^3/UL (140-415)
[2017-05-18] MEDS: ALBUMIN HUMAN 25% 50 ML IV PRN (07:53)
[2017-05-18] MEDS: LISINOPRIL 5 MG TAB PO SCH (09:00)
[2017-05-18] MEDS: NYSTATIN SUSP 5 ML CUP PO SCH ×4 (09:43→21:12)
[2017-05-18] MEDS: AMIODARONE 200 MG TAB NGT SCH (09:47)
[2017-05-18] MEDS: FOLIC ACID 1 MG TAB PO SCH (09:47)
[2017-05-18] MEDS: ALBUMIN HUMAN 25% 100 ML IV SCH (09:48)
[2017-05-18] MEDS: BALSAM PERU/CASTOR OIL 60 GM TUBE TOP SCH ×2 (09:49→21:12)
--- NOTE | 2017-05-18 09:50 | CONS ---
Date/Time of Note Date/Time of Note DATE: 05/18/17 TIME: 09:46 Assessment/Plan Assessment/Plan Chief Complaint/Hosp Course IMP: 1.Acute IA-now downtrended cardiac enzymes without signs of ongoing myocardial necrosis. Now s/p LHC with patent SVG to RCA and [place]/LAD. All other grafts occluded 2.Shock-back on Levo 3.VT-now in SR on amio PO 4.resp failure s/p re-intubation 5.renal failure-on HD 6. Leukocytosis 7. Thrombocytopenia-again worsening 8. Shock liver-improving 9. CHF-systolic acute on chronic likely with EF 20% by intial Echo. Most recent echo 35-40% 10. Anemia- acute worsening, ? etiology RP bleed 11. Hypotension-now back on levo Recc: -Continue ICU monitoring -Continue amio PO -Resume BB/ACEI as tolerated -Continue to trend cardiac enzymes -Follow platelet count and would continue to hold asa given anemia requiring transfusion and worsening platelet count requiring transfusion -F/U cx data and continue abx's -HD for volume removal as tolerated -wean vent as tolerated with family deciding upon trach Problems: Consultation Date/Type/Reason Admit Date/Time Apr 29, 2017 at 19:31 Initial Consult Date 05/02/17 Type of Consultation: cardiology Reason for Consultation Acute IA Referring Provider: YENNY WINSTON MD Exam/Review of Systems Vital Signs Vitals Vital Signs Date Time Temp Pulse Resp B/P Pulse Ox O2 Delivery O2 Flow Rate FiO2 05/18/17 08:00 94 05/18/17 06:00 20 102/49 100 Mechanical Ventilator 05/18/17 04:00 98.0 05/17/17 08:00 30 Intake and Output 05/17/17 05/17/17 05/18/17 15:00 23:00 07:00 Intake Total 560 ml 510 ml 410 ml Balance 560 ml 510 ml 410 ml Exam Review of Systems: CONSTITUTIONAL: No fevers, chills. PULMONARY: No sob CARDIOVASCULAR: No obvious chest pain/palpitations GASTROINTESTINAL: No nausea/vomiting. GENITOURINARY: No hematuria/dysuria. MUSCULOSKELETAL: No myagias/arthalgias. PSYCHIATRIC: The patient denies depression. NEUROLOGIC: inubated Constitutional: alert Psych: no complaints Head: normocephalic Eyes: nl conjunctiva ENMT: intubated, mucosa pink and moist Neck: jvd (9 m water), supple Respiratory: other (uppr airawy rhocherous sounds) Cardiovascular: regular rate and rhythm Gastrointestinal: non-tender, soft Musculoskeletal: muscle tone (normal) Extremities: edema (bilateral) Neurological: other (No focal deficits) Results Result Diagram: 05/18/17 0430 05/18/17 0430 Results 24 hrs Laboratory Tests Test 05/18/17 04:30 White Blood Count 6.1 # Red Blood Count 2.46 L Hemoglobin 7.9 L Hematocrit 23.9 L Mean Corpuscular Volume 97.2 Mean Corpuscular Hemoglobin 32.1 Mean Corpuscular Hemoglobin Concent 33.1 Red Cell Distribution Width 18.6 H Platelet Count 30 #L Mean Platelet Volume Neutrophils % 86.5 H Lymphocytes % 6.4 L Monocytes % 5.1 Eosinophils % 1.5 Basophils % 0.0 Nucleated Red Blood Cells % 0.0 Neutrophils # 5.3 Lymphocytes # 0.4 L Monocytes # 0.3 Eosinophils # 0.1 Basophils # 0.0 Nucleated Red Blood Cells # 0.0 Sodium Level 142 Potassium Level 3.7 Chloride Level 104 Carbon Dioxide Level 32 H Anion Gap 10 Blood Urea Nitrogen 56 H Creatinine 4.71 H Glucose Level 108 Calcium Level 8.6 Total Bilirubin 0.3 Direct Bilirubin 0.00 Indirect Bilirubin 0.3 Aspartate Amino Transf (AST/SGOT) 44 Alanine Aminotransferase (ALT/SGPT) 68 Alkaline Phosphatase 215 H Total Protein 5.8 L Albumin 2.4 L Globulin 3.40 H Albumin/Globulin Ratio 0.70 Medications Medications Current Medications Folic Acid (Folic Acid) 1 mg DAILY PO Last administered on 05/17/17 09:43; Admin Dose 1 MG; Start 04/30/17 at 09:00 Ondansetron HCl (Zofran Inj) 4 mg Q6H PRN IV NAUSEA AND/OR VOMITING Last administered on 05/03/17 23:24; Admin Dose 4 MG; Start 04/29/17 at 20:00 Nitroglycerin (Nitroglycerin (Sl Tab) 0.4 Mg) 1 tab Q5M PRN SL CHEST PAIN; Start 04/29/17 at 20:00 Acetaminophen (Tylenol Liquid) 650 mg Q6H PRN PO PAIN LEVEL 1-3 OR FEVER; Start 04/29/17 at 20:00 Acetaminophen (Tylenol Tab) 650 mg Q6H PRN PO PAIN LEVEL 1-3 OR FEVER; Start at 20:00 Acetaminophen/ Hydrocodone Bitart ([place] (5/325)) 1 tab Q6H PRN PO PAIN LEVEL 4 -6; Start 04/29/17 at 20:00 Zolpidem Tartrate (Ambien) 5 mg QHS PRN PO INSOMNIA; Start 04/29/17 at 20:00 Docusate Sodium (Colace) 100 mg Q12H PRN PO CONSTIPATION; Start 04/29/17 at 20: 00 Bisacodyl (Dulcolax) 5 mg DAILY PRN PO CONSTIPATION; Start 04/29/17 at 20:00 Aspirin 325 mg 325 mg DAILY PO Last administered on 05/13/17 11:24; Admin Dose 325 MG; Start 04/30/17 at 09:00; Status Future Hold Vasopressin 60 unit/Dextrose 60 ml @ 1.2 mls/hr Q12H IV Last administered on 01:07; Admin Dose 2.4 MLS/HR; Start 04/30/17 at 13:00 Phenylephrine HCl 80 mg/Dextrose 250 ml @ 18.75 mls/ hr TITRATE IV Last administered on 05/04/17 09:57; Admin Dose 31.87 MLS/HR; Start 04/30/17 at 18: 00 Norepinephrine/ Dextrose (Levophed/D5W) 250 ml @ 0.46 mls/hr TITRATE IV Last administered on 05/15/17 11:38; Admin Dose 0.93 MLS/HR; Start 04/30/17 at 18:00 Pantoprazole (Protonix Iv) 40 mg BID@06,18 IV Last administered on 05/18/17 05 :03; Admin Dose 40 MG; Start 05/02/17 at 18:00 Diphenhydramine HCl 25 mg 25 mg Q4H PRN IV ITCHING Last administered on 18:01; Admin Dose 25 MG; Start 05/02/17 at 08:30 Dobutamine HCl/ Dextrose 250 ml @ 4.755 mls/ hr TITRATE IV Last administered on 05/07/17 05:21; Admin Dose 3.804 MLS/HR; Start 05/03/17 at 09:30 Miscellaneous Information 1 ea NOTE XX ; Start 05/03/17 at 13:00 Glucose (Glutose) 15 gm Q15M PRN PO DECREASED GLUCOSE; Start 05/03/17 at 12:45 Glucose (Glutose) 22.5 gm Q15M PRN PO DECREASED GLUCOSE; Start 05/03/17 at 12: 45 Dextrose (D50w Syringe) 25 ml Q15M PRN IV DECREASED GLUCOSE Last administered on 05/03/17 12:48; Admin Dose 25 ML; Start 05/03/17 at 12:45 Dextrose (D50w Syringe) 50 ml Q15M PRN IV DECREASED GLUCOSE; Start 05/03/17 at 12:46 Glucagon (Glucagen) 1 mg Q15M PRN IM DECREASED GLUCOSE; Start 05/03/17 at 12:46 Glucose 15 gm 15 gm Q15M PRN BUCCAL DECREASED GLUCOSE; Start 05/03/17 at 12:46 Midazolam HCl 50 ml @ 1 mls/hr TITRATE IV Last administered on 05/16/17 05:10 ; Admin Dose 3 MLS/HR; Start 05/03/17 at 15:00 Dextrose/Sodium Chloride (D5-NS) 1,000 ml @ 20 mls/hr Q24H IV Last administered on 05/17/17 09:20; Admin Dose 20 MLS/HR; Start 05/03/17 at 16:00 Metoclopramide HCl (Reglan) 5 mg Q6 IV Last administered on 05/18/17 05:03; Admin Dose 5 MG; Start 05/04/17 at 12:00 Nystatin 5 ml 5 ml QID PO Last administered on 05/17/17 21:31; Admin Dose 5 ML ; Start 05/04/17 at 13:00 Fentanyl (Sublimaze) 100 ml @ 5 mls/hr TITRATE IV Last administered on 05:11; Admin Dose 4 MLS/HR; Start 05/06/17 at 08:30 Eye Lubricant (Akwa Oint) 1 applic Q4 PRN BOTH EYES dryness Last administered on 05/08/17 08:59; Admin Dose 1 APPLIC; Start 05/07/17 at 13:00 Miscellaneous Information (Pending [facility] Order For [facility]ound Care) This patient otto... PRN PRN XX WOUND CARE; Start 05/07/17 at 13:30 Carvedilol (Coreg) 3.125 mg BID PO Last administered on 05/17/17 09:44; Admin Dose 3.125 MG; Start 05/09/17 at 21:00 Lisinopril (Zestril) 2.5 mg DAILY PO Last administered on 05/17/17 09:44; Admin Dose 2.5 MG; Start 05/10/17 at 09:00 Morphine Sulfate (morphine) 1 mg Q4H PRN IV pain; Start 05/10/17 at 09:00 Scopolamine 1 patch 1 patch Q72H TRANSDERM Last administered on 05/17/17 17:08 ; Admin Dose 1 PATCH; Start 05/11/17 at 16:30 Sodium Chloride (NS) 1,000 ml @ 0 mls/hr Q0M PRN IV TO KEEP SBP ABOVE 90; Start 05/12/17 at 08:24 Amiodarone HCl 400 mg 400 mg DAILY NGT Last administered on 05/17/17 09:43; Admin Dose 400 MG; Start 05/16/17 at 09:00 Albumin Human (Albumin Human 25%) 100 ml @ 100 mls/hr DAILY IV ; Start at 09:00; Stop 05/22/17 at 08:59 MARCO KENNEDY May 18, 2017 09:50
--- NOTE | 2017-05-18 11:50 | CONS ---
Date/Time of Note Date/Time of Note DATE: 05/18/17 TIME: 11:48 Assessment/Plan Assessment/Plan Additional Assessment/Plan Additional Assessment/Plan IMPRESSION: 1. Gastrointestinal bleeding. No active bleeding at this point 2. History of esophageal stricture status post dilatation. 3. Status post coronary angiogram. 4. Renal failure on dialysis. 5. Thrombocytopenia. 6. Respiratory failure on vent. 7. Shock liver but now the liver function is back to normal. 8. Congestive heart failure, the ejection fraction is 35-40 percent. 9. Ventricular tachycardia, now in sinus rhythm on amiodarone. 10. Anemia, hematocrit remained stable PLAN: 1. Continue present care. 2. Transfuse on a needed basis, keep the hemoglobin above 8 or 9. 3. Keep the platelet count above 50,000 to prevent bleeding. 4. Avoid blood thinner for the time being. 5. Continue with beta-abdon and GUANACO inhibitor, and continue with proton pump inhibitor. 6. Patient could not be weaned off ventilator. He may require tracheostomy 7. No further bleeding noted 8. Weaning as per stem frazer Consultation Date/Type/Reason Admit Date/Time Apr 29, 2017 at 19:31 Initial Consult Date 05/02/17 Type of Consultation: cardiology Referring Provider: YENNY WINSTON MD 24 HR Interval Summary Subjective hx not possible: pt non-verbal, pt critical Exam/Review of Systems Vital Signs Vitals Vital Signs Date Time Temp Pulse Resp B/P Pulse Ox O2 Delivery O2 Flow Rate FiO2 05/18/17 10:44 79 13 107/60 100 Mechanical Ventilator 05/18/17 08:00 99.6 05/17/17 08:00 30 Intake and Output 05/17/17 05/17/17 05/18/17 15:00 23:00 07:00 Intake Total 560 ml 510 ml 410 ml Balance 560 ml 510 ml 410 ml Exam Respiratory: other (Patient is on vent) Gastrointestinal: nl liver, spleen, non-tender, soft Extremities: normal pulses Neurological: [employer] II-XII intact, nl mental status, nl speech, nl strength Results Result Diagram: 05/18/17 0430 05/18/17429 Results 24 hrs Laboratory Tests Test 05/18/17 04:30 White Blood Count 6.1 # Red Blood Count 2.46 L Hemoglobin 7.9 L Hematocrit 23.9 L Mean Corpuscular Volume 97.2 Mean Corpuscular Hemoglobin 32.1 Mean Corpuscular Hemoglobin Concent 33.1 Red Cell Distribution Width 18.6 H Platelet Count 30 #L Mean Platelet Volume Neutrophils % 86.5 H Lymphocytes % 6.4 L Monocytes % 5.1 Eosinophils % 1.5 Basophils % 0.0 Nucleated Red Blood Cells % 0.0 Neutrophils # 5.3 Lymphocytes # 0.4 L Monocytes # 0.3 Eosinophils # 0.1 Basophils # 0.0 Nucleated Red Blood Cells # 0.0 Sodium Level 142 Potassium Level 3.7 Chloride Level 104 Carbon Dioxide Level 32 H Anion Gap 10 Blood Urea Nitrogen 56 H Creatinine 4.71 H Glucose Level 108 Calcium Level 8.6 Total Bilirubin 0.3 Direct Bilirubin 0.00 Indirect Bilirubin 0.3 Aspartate Amino Transf (AST/SGOT) 44 Alanine Aminotransferase (ALT/SGPT) 68 Alkaline Phosphatase 215 H Total Protein 5.8 L Albumin 2.4 L Globulin 3.40 H Albumin/Globulin Ratio 0.70 Medications Medications Current Medications Folic Acid (Folic Acid) 1 mg DAILY PO Last administered on 05/18/17 09:47; Admin Dose 1 MG; Start 04/30/17 at 09:00 Ondansetron HCl (Zofran Inj) 4 mg Q6H PRN IV NAUSEA AND/OR VOMITING Last administered on 05/03/17 23:24; Admin Dose 4 MG; Start 04/29/17 at 20:00 Nitroglycerin (Nitroglycerin (Sl Tab) 0.4 Mg) 1 tab Q5M PRN SL CHEST PAIN; Start 04/29/17 at 20:00 Acetaminophen (Tylenol Liquid) 650 mg Q6H PRN PO PAIN LEVEL 1-3 OR FEVER; Start 04/29/17 at 20:00 Acetaminophen (Tylenol Tab) 650 mg Q6H PRN PO PAIN LEVEL 1-3 OR FEVER; Start at 20:00 Acetaminophen/ Hydrocodone Bitart ([place] (5/325)) 1 tab Q6H PRN PO PAIN LEVEL 4 -6; Start 04/29/17 at 20:00 Zolpidem Tartrate (Ambien) 5 mg QHS PRN PO INSOMNIA; Start 04/29/17 at 20:00 Docusate Sodium (Colace) 100 mg Q12H PRN PO CONSTIPATION; Start 04/29/17 at 20: 00 Bisacodyl (Dulcolax) 5 mg DAILY PRN PO CONSTIPATION; Start 04/29/17 at 20:00 Aspirin 325 mg 325 mg DAILY PO Last administered on 05/13/17 11:24; Admin Dose 325 MG; Start 04/30/17 at 09:00; Status Future Hold Vasopressin 60 unit/Dextrose 60 ml @ 1.2 mls/hr Q12H IV Last administered on 01:07; Admin Dose 2.4 MLS/HR; Start 04/30/17 at 13:00 Phenylephrine HCl 80 mg/Dextrose 250 ml @ 18.75 mls/ hr TITRATE IV Last administered on 05/04/17 09:57; Admin Dose 31.87 MLS/HR; Start 04/30/17 at 18: 00 Norepinephrine/ Dextrose (Levophed/D5W) 250 ml @ 0.46 mls/hr TITRATE IV Last administered on 05/15/17 11:38; Admin Dose 0.93 MLS/HR; Start 04/30/17 at 18:00 Pantoprazole (Protonix Iv) 40 mg BID@06,18 IV Last administered on 05/18/17 05 :03; Admin Dose 40 MG; Start 05/02/17 at 18:00 Diphenhydramine HCl 25 mg 25 mg Q4H PRN IV ITCHING Last administered on 18:01; Admin Dose 25 MG; Start 05/02/17 at 08:30 Dobutamine HCl/ Dextrose 250 ml @ 4.755 mls/ hr TITRATE IV Last administered on 05/07/17 05:21; Admin Dose 3.804 MLS/HR; Start 05/03/17 at 09:30 Miscellaneous Information 1 ea NOTE XX ; Start 05/03/17 at 13:00 Glucose (Glutose) 15 gm Q15M PRN PO DECREASED GLUCOSE; Start 05/03/17 at 12:45 Glucose (Glutose) 22.5 gm Q15M PRN PO DECREASED GLUCOSE; Start 05/03/17 at 12: 45 Dextrose (D50w Syringe) 25 ml Q15M PRN IV DECREASED GLUCOSE Last administered on 05/03/17 12:48; Admin Dose 25 ML; Start 05/03/17 at 12:45 Dextrose (D50w Syringe) 50 ml Q15M PRN IV DECREASED GLUCOSE; Start 05/03/17 at 12:46 Glucagon (Glucagen) 1 mg Q15M PRN IM DECREASED GLUCOSE; Start 05/03/17 at 12:46 Glucose 15 gm 15 gm Q15M PRN BUCCAL DECREASED GLUCOSE; Start 05/03/17 at 12:46 Midazolam HCl 50 ml @ 1 mls/hr TITRATE IV Last administered on 05/16/17 05:10 ; Admin Dose 3 MLS/HR; Start 05/03/17 at 15:00 Dextrose/Sodium Chloride (D5-NS) 1,000 ml @ 20 mls/hr Q24H IV Last administered on 05/17/17 09:20; Admin Dose 20 MLS/HR; Start 05/03/17 at 16:00 Metoclopramide HCl (Reglan) 5 mg Q6 IV Last administered on 05/18/17 05:03; Admin Dose 5 MG; Start 05/04/17 at 12:00 Nystatin 5 ml 5 ml QID PO Last administered on 05/18/17 09:43; Admin Dose 5 ML ; Start 05/04/17 at 13:00 Fentanyl (Sublimaze) 100 ml @ 5 mls/hr TITRATE IV Last administered on 05:11; Admin Dose 4 MLS/HR; Start 05/06/17 at 08:30 Eye Lubricant (Akwa Oint) 1 applic Q4 PRN BOTH EYES dryness Last administered on 05/08/17 08:59; Admin Dose 1 APPLIC; Start 05/07/17 at 13:00 Miscellaneous Information (Pending [facility] Order For Wound Care) This patient otto... PRN PRN XX WOUND CARE; Start 05/07/17 at 13:30 Carvedilol (Coreg) 3.125 mg BID PO Last administered on 05/17/17 09:44; Admin Dose 3.125 MG; Start 05/09/17 at 21:00 Lisinopril (Zestril) 2.5 mg DAILY PO Last administered on 05/17/17 09:44; Admin Dose 2.5 MG; Start 05/10/17 at 09:00 Morphine Sulfate (morphine) 1 mg Q4H PRN IV pain; Start 05/10/17 at 09:00 Scopolamine 1 patch 1 patch Q72H TRANSDERM Last administered on 05/17/17 17:08 ; Admin Dose 1 PATCH; Start 05/11/17 at 16:30 Sodium Chloride (NS) 1,000 ml @ 0 mls/hr Q0M PRN IV TO KEEP SBP ABOVE 90; Start 05/12/17 at 08:24 Amiodarone HCl 400 mg 400 mg DAILY NGT Last administered on 05/18/17 09:47; Admin Dose 400 MG; Start 05/16/17 at 09:00 Albumin Human (Albumin Human 25%) 100 ml @ 100 mls/hr DAILY IV Last administered on 05/18/17 09:48; Admin Dose 100 MLS/HR; Start 05/18/17 at 09:00 ; Stop 05/22/17 at 08:59 KASSI HOLLAND MD May 18, 2017 11:50
--- NOTE | 2017-05-18 12:08 | CONS ---
Date/Time of Note Date/Time of Note DATE: 05/18/17 TIME: 12:03 Assessment/Plan Assessment/Plan Additional Assessment/Plan Ventilator setting; AC of 16, tidal volume 500, PEEP of 5, 30% FiO2. Assessment and recommendations; 1. Patient admitted with cardiogenic shock now off pressor support. Also underwent coronary angiography with essentially negative findings. 2. Failure to be weaned from ventilator despite numerous attempts. Also failed one extubation trial. 3. Chronic renal failure, on hemodialysis. 4. Anemia and severe thrombocytopenia. 5. History of cardiac arrhythmia. 6. Prior CABG. 7. Severe generalized deconditioning. Continue current supportive care. Patient again has failed a CPAP trial at bedside. I did have a very detailed discussion with the patient's daughter and son at bedside and apprised them that patient will need to have a tracheostomy performed. The family is very reluctant at this point as the patient's wishes have been not agreeing to a tracheostomy. Patient at this point is in no physical condition to undergo successful extubation. There is a high probability that if extubation is attempted patient would have cardiopulmonary arrest within minutes. At this point only terminal extubation is a viable option Consultation Date/Type/Reason Admit Date/Time Apr 29, 2017 at 19:31 Initial Consult Date 05/01/17 Type of Consultation: Pulmonary/critical care Referring Provider: YENNY WINSTON MD 24 HR Interval Summary Free Text/Dictation Patient's condition remains critical. Patient however has remained hemodynamically stable and off any pressor support. Patient also has been off sedation and is awake now. General exam; elderly male, orally intubated, awake, currently in no distress. Exam/Review of Systems Vital Signs Vitals Vital Signs Date Time Temp Pulse Resp B/P Pulse Ox O2 Delivery O2 Flow Rate FiO2 05/18/17 10:44 79 13 107/60 100 Mechanical Ventilator 05/18/17 08:00 99.6 05/17/17 08:00 30 Intake and Output 05/17/17 05/17/17 05/18/17 15:00 23:00 07:00 Intake Total 560 ml 510 ml 410 ml Balance 560 ml 510 ml 410 ml Exam HEENT exam; supple neck, positive JVD. No lymphadenopathy. Midline trachea. No thyromegaly. Patient has multiple carious teeth. Has bilateral intraocular lens implants. Orally intubated. Patient has a multiple carious teeth. Chest examined; diminished breath sounds bilaterally. There is a well-healed sternal scar. No murmurs. Abdomen exam; soft, no organomegaly. Nontender. Bowel sounds are sluggish. Extremity exam; trace edema. Patient has a multiple ecchymosis involving all 4 extremities HARNESS [employer]GER exam; patient is awake and follows very simple commands and exhibiting profound generalized weakness. Results Result Diagram: 05/18/17 0430 05/18/17 0430 Results 24 hrs Laboratory Tests Test 05/18/17 04:30 White Blood Count 6.1 # Red Blood Count 2.46 L Hemoglobin 7.9 L Hematocrit 23.9 L Mean Corpuscular Volume 97.2 Mean Corpuscular Hemoglobin 32.1 Mean Corpuscular Hemoglobin Concent 33.1 Red Cell Distribution Width 18.6 H Platelet Count 30 #L Mean Platelet Volume Neutrophils % 86.5 H Lymphocytes % 6.4 L Monocytes % 5.1 Eosinophils % 1.5 Basophils % 0.0 Nucleated Red Blood Cells % 0.0 Neutrophils # 5.3 Lymphocytes # 0.4 L Monocytes # 0.3 Eosinophils # 0.1 Basophils # 0.0 Nucleated Red Blood Cells # 0.0 Sodium Level 142 Potassium Level 3.7 Chloride Level 104 Carbon Dioxide Level 32 H Anion Gap 10 Blood Urea Nitrogen 56 H Creatinine 4.71 H Glucose Level 108 Calcium Level 8.6 Total Bilirubin 0.3 Direct Bilirubin 0.00 Indirect Bilirubin 0.3 Aspartate Amino Transf (AST/SGOT) 44 Alanine Aminotransferase (ALT/SGPT) 68 Alkaline Phosphatase 215 H Total Protein 5.8 L Albumin 2.4 L Globulin 3.40 H Albumin/Globulin Ratio 0.70 Medications Medications Current Medications Folic Acid (Folic Acid) 1 mg DAILY PO Last administered on 05/18/17 09:47; Admin Dose 1 MG; Start 04/30/17 at 09:00 Ondansetron HCl (Zofran Inj) 4 mg Q6H PRN IV NAUSEA AND/OR VOMITING Last administered on 05/03/17 23:24; Admin Dose 4 MG; Start 04/29/17 at 20:00 Nitroglycerin (Nitroglycerin (Sl Tab) 0.4 Mg) 1 tab Q5M PRN SL CHEST PAIN; Start 04/29/17 at 20:00 Acetaminophen (Tylenol Liquid) 650 mg Q6H PRN PO PAIN LEVEL 1-3 OR FEVER; Start 04/29/17 at 20:00 Acetaminophen (Tylenol Tab) 650 mg Q6H PRN PO PAIN LEVEL 1-3 OR FEVER; Start at 20:00 Acetaminophen/ Hydrocodone Bitart ([place] (5/325)) 1 tab Q6H PRN PO PAIN LEVEL 4 -6; Start 04/29/17 at 20:00 Zolpidem Tartrate (Ambien) 5 mg QHS PRN PO INSOMNIA; Start 04/29/17 at 20:00 Docusate Sodium (Colace) 100 mg Q12H PRN PO CONSTIPATION; Start 04/29/17 at 20: 00 Bisacodyl (Dulcolax) 5 mg DAILY PRN PO CONSTIPATION; Start 04/29/17 at 20:00 Aspirin 325 mg 325 mg DAILY PO Last administered on 05/13/17 11:24; Admin Dose 325 MG; Start 04/30/17 at 09:00; Status Future Hold Vasopressin 60 unit/Dextrose 60 ml @ 1.2 mls/hr Q12H IV Last administered on 01:07; Admin Dose 2.4 MLS/HR; Start 04/30/17 at 13:00 Phenylephrine HCl 80 mg/Dextrose 250 ml @ 18.75 mls/ hr TITRATE IV Last administered on 05/04/17 09:57; Admin Dose 31.87 MLS/HR; Start 04/30/17 at 18: 00 Norepinephrine/ Dextrose (Levophed/D5W) 250 ml @ 0.46 mls/hr TITRATE IV Last administered on 05/15/17 11:38; Admin Dose 0.93 MLS/HR; Start 04/30/17 at 18:00 Pantoprazole (Protonix Iv) 40 mg BID@06,18 IV Last administered on 05/18/17 05 :03; Admin Dose 40 MG; Start 05/02/17 at 18:00 Diphenhydramine HCl 25 mg 25 mg Q4H PRN IV ITCHING Last administered on 18:01; Admin Dose 25 MG; Start 05/02/17 at 08:30 Dobutamine HCl/ Dextrose 250 ml @ 4.755 mls/ hr TITRATE IV Last administered on 05/07/17 05:21; Admin Dose 3.804 MLS/HR; Start 05/03/17 at 09:30 Miscellaneous Information 1 ea NOTE XX ; Start 05/03/17 at 13:00 Glucose (Glutose) 15 gm Q15M PRN PO DECREASED GLUCOSE; Start 05/03/17 at 12:45 Glucose (Glutose) 22.5 gm Q15M PRN PO DECREASED GLUCOSE; Start 05/03/17 at 12: 45 Dextrose (D50w Syringe) 25 ml Q15M PRN IV DECREASED GLUCOSE Last administered on 05/03/17 12:48; Admin Dose 25 ML; Start 05/03/17 at 12:45 Dextrose (D50w Syringe) 50 ml Q15M PRN IV DECREASED GLUCOSE; Start 05/03/17 at 12:46 Glucagon (Glucagen) 1 mg Q15M PRN IM DECREASED GLUCOSE; Start 05/03/17 at 12:46 Glucose 15 gm 15 gm Q15M PRN BUCCAL DECREASED GLUCOSE; Start 05/03/17 at 12:46 Midazolam HCl 50 ml @ 1 mls/hr TITRATE IV Last administered on 05/16/17 05:10 ; Admin Dose 3 MLS/HR; Start 05/03/17 at 15:00 Dextrose/Sodium Chloride (D5-NS) 1,000 ml @ 20 mls/hr Q24H IV Last administered on 05/17/17 09:20; Admin Dose 20 MLS/HR; Start 05/03/17 at 16:00 Metoclopramide HCl (Reglan) 5 mg Q6 IV Last administered on 05/18/17 05:03; Admin Dose 5 MG; Start 05/04/17 at 12:00 Nystatin 5 ml 5 ml QID PO Last administered on 05/18/17 09:43; Admin Dose 5 ML ; Start 05/04/17 at 13:00 Fentanyl (Sublimaze) 100 ml @ 5 mls/hr TITRATE IV Last administered on 05:11; Admin Dose 4 MLS/HR; Start 05/06/17 at 08:30 Eye Lubricant (Akwa Oint) 1 applic Q4 PRN BOTH EYES dryness Last administered on 05/08/17 08:59; Admin Dose 1 APPLIC; Start 05/07/17 at 13:00 Miscellaneous Information (Pending [facility] Order For Wound Care) This patient otto... PRN PRN XX WOUND CARE; Start 05/07/17 at 13:30 Carvedilol (Coreg) 3.125 mg BID PO Last administered on 05/17/17 09:44; Admin Dose 3.125 MG; Start 05/09/17 at 21:00 Lisinopril (Zestril) 2.5 mg DAILY PO Last administered on 05/17/17 09:44; Admin Dose 2.5 MG; Start 05/10/17 at 09:00 Morphine Sulfate (morphine) 1 mg Q4H PRN IV pain; Start 05/10/17 at 09:00 Scopolamine 1 patch 1 patch Q72H TRANSDERM Last administered on 05/17/17 17:08 ; Admin Dose 1 PATCH; Start 05/11/17 at 16:30 Sodium Chloride (NS) 1,000 ml @ 0 mls/hr Q0M PRN IV TO KEEP SBP ABOVE 90; Start 05/12/17 at 08:24 Amiodarone HCl 400 mg 400 mg DAILY NGT Last administered on 05/18/17 09:47; Admin Dose 400 MG; Start 05/16/17 at 09:00 Albumin Human (Albumin Human 25%) 100 ml @ 100 mls/hr DAILY IV Last administered on 05/18/17 09:48; Admin Dose 100 MLS/HR; Start 05/18/17 at 09:00 ; Stop 05/22/17 at 08:59 CHARLES EMMANUEL May 18, 2017 12:08
--- NOTE | 2017-05-18 12:30 | CONS ---
Date/Time of Note Date/Time of Note DATE: 05/18/17 TIME: 12:28 Assessment/Plan Assessment/Plan Chief Complaint/Hosp Course SUBJECTIVE DATA: No acute changes overnight patient remains intubated sedated, looks comfortable T-max 100.6 heart rate 79 respirations 20 blood pressure 1 7/60 saturation 100 on vent WBC 6.1 H&H 7.9 and 23.9 platelets 30 INDWELLINGS: Endotracheal tube, NG tube, left upper extremity AV fistula, right femoral triple lumen catheter. PHYSICAL EXAMINATION: GENERAL: This is a chronically ill-appearing, fragile, elderly man who is awake, in no distress. HEENT: Head atraumatic, normocephalic. Sclerae anicteric. Buccal mucosa dry. NECK: Supple. CHEST: Rise symmetrical. Breath sounds diminished at the bases. HEART: S1, S2. ABDOMEN: Soft, bowel sounds present. EXTREMITIES: With trace edema. ASSESSMENT: 1. Status post shock, multifactorial. 2. Status post pneumonia and streptococcal bacteremia. 3. Acute myocardial infarction, status post left heart catheterization on 05/13/2017. 4. History of coronary artery bypass grafting. 5. End-stage renal disease, hemodialysis dependent. PLAN: The patient remains stable. He is off antibiotics. He is being followed by multiple consultants. Family to decide regarding tracheostomy. Repeat cultures as needed Discussed with RN Problems: Consultation Date/Type/Reason Admit Date/Time Apr 29, 2017 at 19:31 Initial Consult Date 05/02/17 Type of Consultation: id Referring Provider: YENNY WINSTON MD Exam/Review of Systems Vital Signs Vitals Vital Signs Date Time Temp Pulse Resp B/P Pulse Ox O2 Delivery O2 Flow Rate FiO2 05/18/17 10:44 79 13 107/60 100 Mechanical Ventilator 05/18/17 08:00 99.6 05/17/17 08:00 30 Intake and Output 05/17/17 05/17/17 05/18/17 15:00 23:00 07:00 Intake Total 560 ml 510 ml 410 ml Balance 560 ml 510 ml 410 ml Results Result Diagram: 05/18/17 0430 05/18/17 0430 Results 24 hrs Laboratory Tests Test 05/18/17 04:30 White Blood Count 6.1 # Red Blood Count 2.46 L Hemoglobin 7.9 L Hematocrit 23.9 L Mean Corpuscular Volume 97.2 Mean Corpuscular Hemoglobin 32.1 Mean Corpuscular Hemoglobin Concent 33.1 Red Cell Distribution Width 18.6 H Platelet Count 30 #L Mean Platelet Volume Neutrophils % 86.5 H Lymphocytes % 6.4 L Monocytes % 5.1 Eosinophils % 1.5 Basophils % 0.0 Nucleated Red Blood Cells % 0.0 Neutrophils # 5.3 Lymphocytes # 0.4 L Monocytes # 0.3 Eosinophils # 0.1 Basophils # 0.0 Nucleated Red Blood Cells # 0.0 Sodium Level 142 Potassium Level 3.7 Chloride Level 104 Carbon Dioxide Level 32 H Anion Gap 10 Blood Urea Nitrogen 56 H Creatinine 4.71 H Glucose Level 108 Calcium Level 8.6 Total Bilirubin 0.3 Direct Bilirubin 0.00 Indirect Bilirubin 0.3 Aspartate Amino Transf (AST/SGOT) 44 Alanine Aminotransferase (ALT/SGPT) 68 Alkaline Phosphatase 215 H Total Protein 5.8 L Albumin 2.4 L Globulin 3.40 H Albumin/Globulin Ratio 0.70 Medications Medications Current Medications Folic Acid (Folic Acid) 1 mg DAILY PO Last administered on 05/18/17 09:47; Admin Dose 1 MG; Start 04/30/17 at 09:00 Ondansetron HCl (Zofran Inj) 4 mg Q6H PRN IV NAUSEA AND/OR VOMITING Last administered on 05/03/17 23:24; Admin Dose 4 MG; Start 04/29/17 at 20:00 Nitroglycerin (Nitroglycerin (Sl Tab) 0.4 Mg) 1 tab Q5M PRN SL CHEST PAIN; Start 04/29/17 at 20:00 Acetaminophen (Tylenol Liquid) 650 mg Q6H PRN PO PAIN LEVEL 1-3 OR FEVER; Start 04/29/17 at 20:00 Acetaminophen (Tylenol Tab) 650 mg Q6H PRN PO PAIN LEVEL 1-3 OR FEVER; Start at 20:00 Acetaminophen/ Hydrocodone Bitart ([place] (5/325)) 1 tab Q6H PRN PO PAIN LEVEL 4 -6; Start 04/29/17 at 20:00 Zolpidem Tartrate (Ambien) 5 mg QHS PRN PO INSOMNIA; Start 04/29/17 at 20:00 Docusate Sodium (Colace) 100 mg Q12H PRN PO CONSTIPATION; Start 04/29/17 at 20: 00 Bisacodyl (Dulcolax) 5 mg DAILY PRN PO CONSTIPATION; Start 04/29/17 at 20:00 Aspirin 325 mg 325 mg DAILY PO Last administered on 05/13/17 11:24; Admin Dose 325 MG; Start 04/30/17 at 09:00; Status Future Hold Vasopressin 60 unit/Dextrose 60 ml @ 1.2 mls/hr Q12H IV Last administered on 01:07; Admin Dose 2.4 MLS/HR; Start 04/30/17 at 13:00 Phenylephrine HCl 80 mg/Dextrose 250 ml @ 18.75 mls/ hr TITRATE IV Last administered on 05/04/17 09:57; Admin Dose 31.87 MLS/HR; Start 04/30/17 at 18: 00 Norepinephrine/ Dextrose (Levophed/D5W) 250 ml @ 0.46 mls/hr TITRATE IV Last administered on 05/15/17 11:38; Admin Dose 0.93 MLS/HR; Start 04/30/17 at 18:00 Pantoprazole (Protonix Iv) 40 mg BID@06,18 IV Last administered on 05/18/17 05 :03; Admin Dose 40 MG; Start 05/02/17 at 18:00 Diphenhydramine HCl 25 mg 25 mg Q4H PRN IV ITCHING Last administered on 18:01; Admin Dose 25 MG; Start 05/02/17 at 08:30 Dobutamine HCl/ Dextrose 250 ml @ 4.755 mls/ hr TITRATE IV Last administered on 05/07/17 05:21; Admin Dose 3.804 MLS/HR; Start 05/03/17 at 09:30 Miscellaneous Information 1 ea NOTE XX ; Start 05/03/17 at 13:00 Glucose (Glutose) 15 gm Q15M PRN PO DECREASED GLUCOSE; Start 05/03/17 at 12:45 Glucose (Glutose) 22.5 gm Q15M PRN PO DECREASED GLUCOSE; Start 05/03/17 at 12: 45 Dextrose (D50w Syringe) 25 ml Q15M PRN IV DECREASED GLUCOSE Last administered on 05/03/17 12:48; Admin Dose 25 ML; Start 05/03/17 at 12:45 Dextrose (D50w Syringe) 50 ml Q15M PRN IV DECREASED GLUCOSE; Start 05/03/17 at 12:46 Glucagon (Glucagen) 1 mg Q15M PRN IM DECREASED GLUCOSE; Start 05/03/17 at 12:46 Glucose 15 gm 15 gm Q15M PRN BUCCAL DECREASED GLUCOSE; Start 05/03/17 at 12:46 Midazolam HCl 50 ml @ 1 mls/hr TITRATE IV Last administered on 05/16/17 05:10 ; Admin Dose 3 MLS/HR; Start 05/03/17 at 15:00 Dextrose/Sodium Chloride (D5-NS) 1,000 ml @ 20 mls/hr Q24H IV Last administered on 05/17/17 09:20; Admin Dose 20 MLS/HR; Start 05/03/17 at 16:00 Metoclopramide HCl (Reglan) 5 mg Q6 IV Last administered on 05/18/17 05:03; Admin Dose 5 MG; Start 05/04/17 at 12:00 Nystatin 5 ml 5 ml QID PO Last administered on 05/18/17 09:43; Admin Dose 5 ML ; Start 05/04/17 at 13:00 Fentanyl (Sublimaze) 100 ml @ 5 mls/hr TITRATE IV Last administered on 05:11; Admin Dose 4 MLS/HR; Start 05/06/17 at 08:30 Eye Lubricant (Akwa Oint) 1 applic Q4 PRN BOTH EYES dryness Last administered on 05/08/17 08:59; Admin Dose 1 APPLIC; Start 05/07/17 at 13:00 Miscellaneous Information (Pending [facility] Order For Wound Care) This patient otto... PRN PRN XX WOUND CARE; Start 05/07/17 at 13:30 Carvedilol (Coreg) 3.125 mg BID PO Last administered on 05/17/17 09:44; Admin Dose 3.125 MG; Start 05/09/17 at 21:00 Lisinopril (Zestril) 2.5 mg DAILY PO Last administered on 05/17/17 09:44; Admin Dose 2.5 MG; Start 05/10/17 at 09:00 Morphine Sulfate (morphine) 1 mg Q4H PRN IV pain; Start 05/10/17 at 09:00 Scopolamine 1 patch 1 patch Q72H TRANSDERM Last administered on 05/17/17 17:08 ; Admin Dose 1 PATCH; Start 05/11/17 at 16:30 Sodium Chloride (NS) 1,000 ml @ 0 mls/hr Q0M PRN IV TO KEEP SBP ABOVE 90; Start 05/12/17 at 08:24 Amiodarone HCl 400 mg 400 mg DAILY NGT Last administered on 05/18/17 09:47; Admin Dose 400 MG; Start 05/16/17 at 09:00 Albumin Human (Albumin Human 25%) 100 ml @ 100 mls/hr DAILY IV Last administered on 05/18/17 09:48; Admin Dose 100 MLS/HR; Start 05/18/17 at 09:00 ; Stop 05/22/17 at 08:59 CHACE DENNISON NP May 18, 2017 12:30
--- NOTE | 2017-05-18 12:39 | PN ---
Date/Time of Note Date/Time of Note DATE: 05/18/17 TIME: 12:37 Assessment/Plan VTE Prophylaxis VTE Prophylaxis Intervention: other Lines/Catheters IV Catheter Type (from Nrs): Central Line Central line still needed: Yes Urinary Cath still in place: No Assessment/Plan Chief Complaint/Hosp Course A/P NSTEMI S/P V TACH ESRD PUL EDEMA BETTER SHOCK LIVER BETTER PNEUMONIA SYS HEAR T FAILURE BETTERE ANEMIA LOW PLATELET VDRF S/P CATH NO PCI LOW EF BETTER PER DR SIMON DVT ARM ESOPHAGIAL DILATITION PER GI HX EDEMA ARMS PLAN CONTINUE HD weaning pt awake and alert Problems: Subjective 24 Hr Interval Summary Respiratory: shortness of breath (+) Gastrointestinal: no complaints Exam/Review of Systems Vital Signs Vitals Vital Signs Date Time Temp Pulse Resp B/P Pulse Ox O2 Delivery O2 Flow Rate FiO2 05/18/17 10:44 79 13 107/60 100 Mechanical Ventilator 05/18/17 08:00 99.6 05/17/17 08:00 30 Intake and Output 05/17/17 05/17/17 05/18/17 15:00 23:00 07:00 Intake Total 560 ml 510 ml 410 ml Balance 560 ml 510 ml 410 ml Exam Respiratory: diminished breath sounds Cardiovascular: regular rate and rhythm Gastrointestinal: bowel sounds (+), soft Extremities: edema (+) Results Result Diagram: 05/18/1742905/18/17 043 Results 24 hrs Laboratory Tests Test 05/18/17 04:30 White Blood Count 6.1 # Red Blood Count 2.46 L Hemoglobin 7.9 L Hematocrit 23.9 L Mean Corpuscular Volume 97.2 Mean Corpuscular Hemoglobin 32.1 Mean Corpuscular Hemoglobin Concent 33.1 Red Cell Distribution Width 18.6 H Platelet Count 30 #L Mean Platelet Volume Neutrophils % 86.5 H Lymphocytes % 6.4 L Monocytes % 5.1 Eosinophils % 1.5 Basophils % 0.0 Nucleated Red Blood Cells % 0.0 Neutrophils # 5.3 Lymphocytes # 0.4 L Monocytes # 0.3 Eosinophils # 0.1 Basophils # 0.0 Nucleated Red Blood Cells # 0.0 Sodium Level 142 Potassium Level 3.7 Chloride Level 104 Carbon Dioxide Level 32 H Anion Gap 10 Blood Urea Nitrogen 56 H Creatinine 4.71 H Glucose Level 108 Calcium Level 8.6 Total Bilirubin 0.3 Direct Bilirubin 0.00 Indirect Bilirubin 0.3 Aspartate Amino Transf (AST/SGOT) 44 Alanine Aminotransferase (ALT/SGPT) 68 Alkaline Phosphatase 215 H Total Protein 5.8 L Albumin 2.4 L Globulin 3.40 H Albumin/Globulin Ratio 0.70 Medications Medications Current Medications Folic Acid (Folic Acid) 1 mg DAILY PO Last administered on 05/18/17 09:47; Admin Dose 1 MG; Start 04/30/17 at 09:00 Ondansetron HCl (Zofran Inj) 4 mg Q6H PRN IV NAUSEA AND/OR VOMITING Last administered on 05/03/17 23:24; Admin Dose 4 MG; Start 04/29/17 at 20:00 Nitroglycerin (Nitroglycerin (Sl Tab) 0.4 Mg) 1 tab Q5M PRN SL CHEST PAIN; Start 04/29/17 at 20:00 Acetaminophen (Tylenol Liquid) 650 mg Q6H PRN PO PAIN LEVEL 1-3 OR FEVER; Start 04/29/17 at 20:00 Acetaminophen (Tylenol Tab) 650 mg Q6H PRN PO PAIN LEVEL 1-3 OR FEVER; Start at 20:00 Acetaminophen/ Hydrocodone Bitart ([place] (5/325)) 1 tab Q6H PRN PO PAIN LEVEL 4 -6; Start 04/29/17 at 20:00 Zolpidem Tartrate (Ambien) 5 mg QHS PRN PO INSOMNIA; Start 04/29/17 at 20:00 Docusate Sodium (Colace) 100 mg Q12H PRN PO CONSTIPATION; Start 04/29/17 at 20: 00 Bisacodyl (Dulcolax) 5 mg DAILY PRN PO CONSTIPATION; Start 04/29/17 at 20:00 Aspirin 325 mg 325 mg DAILY PO Last administered on 05/13/17 11:24; Admin Dose 325 MG; Start 04/30/17 at 09:00; Status Future Hold Vasopressin 60 unit/Dextrose 60 ml @ 1.2 mls/hr Q12H IV Last administered on 01:07; Admin Dose 2.4 MLS/HR; Start 04/30/17 at 13:00 Phenylephrine HCl 80 mg/Dextrose 250 ml @ 18.75 mls/ hr TITRATE IV Last administered on 05/04/17 09:57; Admin Dose 31.87 MLS/HR; Start 04/30/17 at 18: 00 Norepinephrine/ Dextrose (Levophed/D5W) 250 ml @ 0.46 mls/hr TITRATE IV Last administered on 05/15/17 11:38; Admin Dose 0.93 MLS/HR; Start 04/30/17 at 18:00 Pantoprazole (Protonix Iv) 40 mg BID@06,18 IV Last administered on 05/18/17 05 :03; Admin Dose 40 MG; Start 05/02/17 at 18:00 Diphenhydramine HCl 25 mg 25 mg Q4H PRN IV ITCHING Last administered on 18:01; Admin Dose 25 MG; Start 05/02/17 at 08:30 Dobutamine HCl/ Dextrose 250 ml @ 4.755 mls/ hr TITRATE IV Last administered on 05/07/17 05:21; Admin Dose 3.804 MLS/HR; Start 05/03/17 at 09:30 Miscellaneous Information 1 ea NOTE XX ; Start 05/03/17 at 13:00 Glucose (Glutose) 15 gm Q15M PRN PO DECREASED GLUCOSE; Start 05/03/17 at 12:45 Glucose (Glutose) 22.5 gm Q15M PRN PO DECREASED GLUCOSE; Start 05/03/17 at 12: 45 Dextrose (D50w Syringe) 25 ml Q15M PRN IV DECREASED GLUCOSE Last administered on 05/03/17 12:48; Admin Dose 25 ML; Start 05/03/17 at 12:45 Dextrose (D50w Syringe) 50 ml Q15M PRN IV DECREASED GLUCOSE; Start 05/03/17 at 12:46 Glucagon (Glucagen) 1 mg Q15M PRN IM DECREASED GLUCOSE; Start 05/03/17 at 12:46 Glucose 15 gm 15 gm Q15M PRN BUCCAL DECREASED GLUCOSE; Start 05/03/17 at 12:46 Midazolam HCl 50 ml @ 1 mls/hr TITRATE IV Last administered on 05/16/17 05:10 ; Admin Dose 3 MLS/HR; Start 05/03/17 at 15:00 Dextrose/Sodium Chloride (D5-NS) 1,000 ml @ 20 mls/hr Q24H IV Last administered on 05/17/17 09:20; Admin Dose 20 MLS/HR; Start 05/03/17 at 16:00 Metoclopramide HCl (Reglan) 5 mg Q6 IV Last administered on 05/18/17 05:03; Admin Dose 5 MG; Start 05/04/17 at 12:00 Nystatin 5 ml 5 ml QID PO Last administered on 05/18/17 09:43; Admin Dose 5 ML ; Start 05/04/17 at 13:00 Fentanyl (Sublimaze) 100 ml @ 5 mls/hr TITRATE IV Last administered on 05:11; Admin Dose 4 MLS/HR; Start 05/06/17 at 08:30 Eye Lubricant (Akwa Oint) 1 applic Q4 PRN BOTH EYES dryness Last administered on 05/08/17 08:59; Admin Dose 1 APPLIC; Start 05/07/17 at 13:00 Miscellaneous Information (Pending [facility] Order For Wound Care) This patient otto... PRN PRN XX WOUND CARE; Start 05/07/17 at 13:30 Carvedilol (Coreg) 3.125 mg BID PO Last administered on 05/17/17 09:44; Admin Dose 3.125 MG; Start 05/09/17 at 21:00 Lisinopril (Zestril) 2.5 mg DAILY PO Last administered on 05/17/17 09:44; Admin Dose 2.5 MG; Start 05/10/17 at 09:00 Morphine Sulfate (morphine) 1 mg Q4H PRN IV pain; Start 05/10/17 at 09:00 Scopolamine 1 patch 1 patch Q72H TRANSDERM Last administered on 05/17/17 17:08 ; Admin Dose 1 PATCH; Start 05/11/17 at 16:30 Sodium Chloride (NS) 1,000 ml @ 0 mls/hr Q0M PRN IV TO KEEP SBP ABOVE 90; Start 05/12/17 at 08:24 Amiodarone HCl 400 mg 400 mg DAILY NGT Last administered on 05/18/17 09:47; Admin Dose 400 MG; Start 05/16/17 at 09:00 Albumin Human (Albumin Human 25%) 100 ml @ 100 mls/hr DAILY IV Last administered on 05/18/17 09:48; Admin Dose 100 MLS/HR; Start 05/18/17 at 09:00 ; Stop 05/22/17 at 08:59 YENNY WINSTON MD May 18, 2017 12:39
[2017-05-18] MEDS: VASOPRESSIN 60 UNIT in DEXTROSE 5% 57 ML IV SCH (13:00)
[2017-05-18] MEDS: ACETAMINOPHEN 650MG/20.3ML CUP PO PRN (17:36)
[2017-05-18] MEDS: DEXTROSE 5%-0.9% NACL 1,000 ML IV SCH (17:37)
--- NOTE | 2017-05-18 19:01 | PN ---
Date/Time of Note Date/Time of Note DATE: 05/18/17 TIME: 19:00 Assessment/Plan Lines/Catheters IV Catheter Type (from Nrsg): Central Line Campos in Place (from Nrsg): No Assessment/Plan Chief Complaint/Hosp Course IMPRESSION: Respiratory failure. RECOMMENDATIONS: We will proceed with placement of a tracheostomy when the family is agreeable. Problems: Subjective 24 Hr Interval Summary Constitutional: improved Pain Control: mild Exam/Review of Systems Vital Signs Vitals Vital Signs Date Time Temp Pulse Resp B/P Pulse Ox O2 Delivery O2 Flow Rate FiO2 05/18/17 18:00 76 16 101/48 100 Mechanical Ventilator 05/18/17 17:00 101.1 05/18/17 12:00 30 Intake and Output 05/17/17 05/17/17 05/18/17 15:00 23:00 07:00 Intake Total 560 ml 510 ml 500 ml Balance 560 ml 510 ml 500 ml Exam Neck: non-tender, supple Respiratory: clear to auscultation, normal air movement Cardiovascular: nl pulses, regular rate and rhythm Gastrointestinal: nl liver, spleen, non-tender, soft Results Result Diagram: 05/18/17 0430 05/18/17 0430 KATHARINA ALLISON MD May 18, 2017 19:01
[2017-05-18] MEDS: NORepinephrine 32 MG in DEXTROSE 5% 218 ML IV SCH (20:36)
[2017-05-19] VITALS (91 sets, daily range): BP systolic 62–137; BP diastolic 26–103; PULSE 63–90; RESP 12–34
[2017-05-19] MEDS: METOCLOPRAMIDE 10 MG INJ IV SCH ×4 (00:56→18:00)
[2017-05-19] MEDS: VASOPRESSIN 60 UNIT in DEXTROSE 5% 57 ML IV SCH ×2 (00:57→13:00)
[2017-05-19] MEDS: ALBUTEROL 18 GM INHALER INH SCH ×4 (01:09→20:45)
[2017-05-19] MEDS: IPRATROPIUM (HFA) 12.9 GM INHALER INH SCH ×4 (01:09→20:45)
[2017-05-19] MEDS: morphine 2 MG INJ IV PRN ×2 (02:59→21:15)
[2017-05-19 05:15] LABS: ABNORMAL IP MESSAGE 1; EOSINOPHILS # 0.1 10^3/ul (0.0-0.5); EOSINOPHILS % 2.9 % (0.0-7.0); HEMATOCRIT 22.8 % (42.0-52.0); HEMOGLOBIN 7.5 g/dl (14.0-18.0); LYMPHOCYTES # 0.3 10^3/ul (0.8-2.9); MEAN CORPUSCULAR HEMOGLOBIN 32.5 pg (29.0-33.0); MEAN CORPUSCULAR HGB CONC 32.9 g/dl (32.0-37.0); MEAN CORPUSCULAR VOLUME 98.7 fl (82.0-101.0); MEAN PLATELET VOLUME 12.6 fl (7.4-10.4); MONOCYTE # 0.3 10^3/ul (0.3-0.9); MONOCYTES % 7.2 % (0.0-11.0); NEUTROPHIL # 3.7 10^3/ul (1.6-7.5); NEUTROPHILS % 82.4 % (39.0-77.0); PLATELET COUNT 31 10^3/UL (140-415); POSITIVE DIFF @See below; RED BLOOD COUNT 2.31 10^6/ul (4.70-6.10); RED CELL DISTRIBUTION WIDTH 18.6 % (11.5-14.5); WHITE BLOOD COUNT 4.4 10^3/ul (4.8-10.8)
[2017-05-19] MEDS: PANTOPRAZOLE 40 MG INJ IV SCH ×2 (05:15→18:00)
[2017-05-19 05:42] LABS: ALBUMIN 2.7 g/dl (3.3-4.9); ALBUMIN/GLOBULIN RATIO 0.79; BILIRUBIN,INDIRECT 0.5 mg/dl (0-1.1); BILIRUBIN,TOTAL 0.5 mg/dl (0.2-1.3); CALCIUM 8.3 mg/dl (8.4-10.2); CREATININE 4.34 mg/dl (0.61-1.24); POTASSIUM 3.8 mmol/L (3.5-5.1); TOTAL PROTEIN 6.1 g/dl (6.1-8.1)
[2017-05-19] MEDS: NORepinephrine 32 MG in DEXTROSE 5% 218 ML IV SCH (08:24)
[2017-05-19] MEDS: LISINOPRIL 5 MG TAB PO SCH (09:00)
[2017-05-19] MEDS: AMIODARONE 200 MG TAB NGT SCH (09:34)
[2017-05-19] MEDS: NYSTATIN SUSP 5 ML CUP PO SCH ×4 (09:34→21:17)
[2017-05-19] MEDS: FOLIC ACID 1 MG TAB PO SCH (09:34)
[2017-05-19] MEDS: BALSAM PERU/CASTOR OIL 60 GM TUBE TOP SCH ×2 (09:35→21:15)
[2017-05-19] MEDS: ALBUMIN HUMAN 25% 100 ML IV SCH (09:35)
--- NOTE | 2017-05-19 10:33 | CONS ---
Date/Time of Note Date/Time of Note DATE: 05/19/17 TIME: 10:30 Assessment/Plan Assessment/Plan Chief Complaint/Hosp Course IMP: 1.Acute AR-now downtrended cardiac enzymes without signs of ongoing myocardial necrosis. Now s/p LHC with patent SVG to RCA and [place] Ramus/LAD. All other grafts occluded 2.Shock-back on Levo 3.VT-now in SR on amio PO 4.resp failure s/p re-intubation 5.renal failure-on HD 6. Leukocytosis 7. Thrombocytopenia-again worsening 8. Shock liver-improving 9. CHF-systolic acute on chronic likely with EF 20% by intial Echo. Most recent echo 35-40% 10. Anemia- acute worsening, ? etiology RP bleed 11. Hypotension-now back on levo Recc: -Continue ICU monitoring -Continue amio PO -Holding BB/ACEI while on levo -Continue to trend cardiac enzymes -Follow platelet count and would continue to hold asa given anemia requiring transfusion and worsening platelet count requiring transfusion -F/U cx data and continue abx's -HD for volume removal as tolerated -wean vent as tolerated with family deciding upon trach -cxr Problems: Consultation Date/Type/Reason Admit Date/Time Apr 29, 2017 at 19:31 Initial Consult Date 05/02/17 Type of Consultation: cardiology Reason for Consultation cardiomyopathy Referring Provider: YENNY WINSTON MD Exam/Review of Systems Vital Signs Vitals Vital Signs Date Time Temp Pulse Resp B/P Pulse Ox O2 Delivery O2 Flow Rate FiO2 05/19/17 08:00 82 05/19/17 04:53 21 100 30 05/19/17 02:00 129/103 Mechanical Ventilator 05/19/17 00:00 98.9 Intake and Output 05/18/17 05/18/17 05/19/17 15:00 23:00 07:00 Intake Total 1070 ml 494.18 ml 486.02 ml Output Total 3000 ml 0 ml 0 ml Balance -1930 ml 494.18 ml 486.02 ml Exam Review of Systems: CONSTITUTIONAL: No fevers, chills. PULMONARY: intubated CARDIOVASCULAR: No obvious chest pain/palpitations GASTROINTESTINAL: No nausea/vomiting. GENITOURINARY: No hematuria/dysuria. MUSCULOSKELETAL: No obvious myagias/arthalgias. PSYCHIATRIC: The patient denies depression. NEUROLOGIC: No weakness Constitutional: alert, oriented Psych: no complaints Head: normocephalic ENMT: mucosa pink and moist Neck: supple Respiratory: diminished breath sounds (at bases/B) Cardiovascular: regular rate and rhythm Gastrointestinal: non-tender, soft Musculoskeletal: muscle tone (normal) Extremities: pitting pedal edema (trace bilateral) Neurological: other (No focal deficits) Results Result Diagram: 05/19/17 0500 05/19/17 0500 Results 24 hrs Laboratory Tests Test 05/19/17 05:00 05/19/17 05:13 White Blood Count 4.4 #L Red Blood Count 2.31 L Hemoglobin 7.5 L Hematocrit 22.8 L Mean Corpuscular Volume 98.7 Mean Corpuscular Hemoglobin 32.5 Mean Corpuscular Hemoglobin Concent 32.9 Red Cell Distribution Width 18.6 H Platelet Count 31 L Mean Platelet Volume 12.6 H Neutrophils % 82.4 H Lymphocytes % 7.0 L Monocytes % 7.2 Eosinophils % 2.9 Basophils % 0.0 Nucleated Red Blood Cells % 0.0 Neutrophils # 3.7 Lymphocytes # 0.3 L Monocytes # 0.3 Eosinophils # 0.1 Basophils # 0.0 Nucleated Red Blood Cells # 0.0 Sodium Level 145 H Potassium Level 3.8 Chloride Level 106 Carbon Dioxide Level 32 H Anion Gap 11 Blood Urea Nitrogen 52 H Creatinine 4.34 H Glucose Level 100 Calcium Level 8.3 L Total Bilirubin 0.5 Direct Bilirubin 0.00 Indirect Bilirubin 0.5 Aspartate Amino Transf (AST/SGOT) 66 H Alanine Aminotransferase (ALT/SGPT) 72 H Alkaline Phosphatase 197 H Total Protein 6.1 Albumin 2.7 L Globulin 3.40 H Albumin/Globulin Ratio 0.79 Lab Scanned Report BLOOD TRANSFUSION Medications Medications Current Medications Folic Acid (Folic Acid) 1 mg DAILY PO Last administered on 05/19/17 09:34; Admin Dose 1 MG; Start 04/30/17 at 09:00 Ondansetron HCl (Zofran Inj) 4 mg Q6H PRN IV NAUSEA AND/OR VOMITING Last administered on 05/03/17 23:24; Admin Dose 4 MG; Start 04/29/17 at 20:00 Nitroglycerin (Nitroglycerin (Sl Tab) 0.4 Mg) 1 tab Q5M PRN SL CHEST PAIN; Start 04/29/17 at 20:00 Acetaminophen (Tylenol Liquid) 650 mg Q6H PRN PO PAIN LEVEL 1-3 OR FEVER Last administered on 05/18/17 17:36; Admin Dose 650 MG; Start 04/29/17 at 20:00 Acetaminophen (Tylenol Tab) 650 mg Q6H PRN PO PAIN LEVEL 1-3 OR FEVER; Start at 20:00 Acetaminophen/ Hydrocodone Bitart ([place] (5/325)) 1 tab Q6H PRN PO PAIN LEVEL 4 -6; Start 04/29/17 at 20:00 Zolpidem Tartrate (Ambien) 5 mg QHS PRN PO INSOMNIA; Start 04/29/17 at 20:00 Docusate Sodium (Colace) 100 mg Q12H PRN PO CONSTIPATION; Start 04/29/17 at 20: 00 Bisacodyl (Dulcolax) 5 mg DAILY PRN PO CONSTIPATION; Start 04/29/17 at 20:00 Aspirin 325 mg 325 mg DAILY PO Last administered on 05/13/17 11:24; Admin Dose 325 MG; Start 04/30/17 at 09:00; Status Future Hold Vasopressin 60 unit/Dextrose 60 ml @ 1.2 mls/hr Q12H IV Last administered on 01:07; Admin Dose 2.4 MLS/HR; Start 04/30/17 at 13:00 Phenylephrine HCl 80 mg/Dextrose 250 ml @ 18.75 mls/ hr TITRATE IV Last administered on 05/04/17 09:57; Admin Dose 31.87 MLS/HR; Start 04/30/17 at 18: 00 Norepinephrine/ Dextrose (Levophed/D5W) 250 ml @ 0.46 mls/hr TITRATE IV Last administered on 05/18/17 20:36; Admin Dose 0.46 MLS/HR; Start 04/30/17 at 18:00 Pantoprazole (Protonix Iv) 40 mg BID@06,18 IV Last administered on 05/19/17 05 :15; Admin Dose 40 MG; Start 05/02/17 at 18:00 Diphenhydramine HCl 25 mg 25 mg Q4H PRN IV ITCHING Last administered on 18:01; Admin Dose 25 MG; Start 05/02/17 at 08:30 Dobutamine HCl/ Dextrose 250 ml @ 4.755 mls/ hr TITRATE IV Last administered on 05/07/17 05:21; Admin Dose 3.804 MLS/HR; Start 05/03/17 at 09:30 Miscellaneous Information 1 ea NOTE XX ; Start 05/03/17 at 13:00 Glucose (Glutose) 15 gm Q15M PRN PO DECREASED GLUCOSE; Start 05/03/17 at 12:45 Glucose (Glutose) 22.5 gm Q15M PRN PO DECREASED GLUCOSE; Start 05/03/17 at 12: 45 Dextrose (D50w Syringe) 25 ml Q15M PRN IV DECREASED GLUCOSE Last administered on 05/03/17 12:48; Admin Dose 25 ML; Start 05/03/17 at 12:45 Dextrose (D50w Syringe) 50 ml Q15M PRN IV DECREASED GLUCOSE; Start 05/03/17 at 12:46 Glucagon (Glucagen) 1 mg Q15M PRN IM DECREASED GLUCOSE; Start 05/03/17 at 12:46 Glucose 15 gm 15 gm Q15M PRN BUCCAL DECREASED GLUCOSE; Start 05/03/17 at 12:46 Midazolam HCl 50 ml @ 1 mls/hr TITRATE IV Last administered on 05/16/17 05:10 ; Admin Dose 3 MLS/HR; Start 05/03/17 at 15:00 Dextrose/Sodium Chloride (D5-NS) 1,000 ml @ 20 mls/hr Q24H IV Last administered on 05/18/17 17:37; Admin Dose 20 MLS/HR; Start 05/03/17 at 16:00 Metoclopramide HCl (Reglan) 5 mg Q6 IV Last administered on 05/19/17 05:15; Admin Dose 5 MG; Start 05/04/17 at 12:00 Nystatin 5 ml 5 ml QID PO Last administered on 05/19/17 09:34; Admin Dose 5 ML ; Start 05/04/17 at 13:00 Fentanyl (Sublimaze) 100 ml @ 5 mls/hr TITRATE IV Last administered on 05:11; Admin Dose 4 MLS/HR; Start 05/06/17 at 08:30 Eye Lubricant (Akwa Oint) 1 applic Q4 PRN BOTH EYES dryness Last administered on 05/08/17 08:59; Admin Dose 1 APPLIC; Start 05/07/17 at 13:00 Miscellaneous Information (Pending Santyl Order For Wound Care) This patient otto... PRN PRN XX WOUND CARE; Start 05/07/17 at 13:30 Carvedilol (Coreg) 3.125 mg BID PO Last administered on 05/17/17 09:44; Admin Dose 3.125 MG; Start 05/09/17 at 21:00 Lisinopril (Zestril) 2.5 mg DAILY PO Last administered on 05/17/17 09:44; Admin Dose 2.5 MG; Start 05/10/17 at 09:00 Morphine Sulfate (morphine) 1 mg Q4H PRN IV pain Last administered on 02:59; Admin Dose 1 MG; Start 05/10/17 at 09:00 Scopolamine 1 patch 1 patch Q72H TRANSDERM Last administered on 05/17/17 17:08 ; Admin Dose 1 PATCH; Start 05/11/17 at 16:30 Sodium Chloride (NS) 1,000 ml @ 0 mls/hr Q0M PRN IV TO KEEP SBP ABOVE 90; Start 05/12/17 at 08:24 Amiodarone HCl 400 mg 400 mg DAILY NGT Last administered on 05/19/17 09:34; Admin Dose 400 MG; Start 05/16/17 at 09:00 Albumin Human (Albumin Human 25%) 100 ml @ 100 mls/hr DAILY IV Last administered on 05/19/17 09:35; Admin Dose 100 MLS/HR; Start 05/18/17 at 09:00 ; Stop 05/22/17 at 08:59 MARCO KENNEDY May 19, 2017 10:33
[2017-05-19] MEDS ORDERED: VANCOMYCIN IV PER PHARMACY XX SCH (11:00)
--- NOTE | 2017-05-19 11:29 | CONS ---
Date/Time of Note Date/Time of Note DATE: 05/19/17 TIME: 11:28 Assessment/Plan Assessment/Plan Additional Assessment/Plan Additional Assessment/Plan IMPRESSION: 1. Gastrointestinal bleeding. No active bleeding at this point 2. History of esophageal stricture status post dilatation. 3. Status post coronary angiogram. 4. Renal failure on dialysis. 5. Thrombocytopenia. 6. Respiratory failure on vent. 7. Shock liver but now the liver function is back to normal. 8. Congestive heart failure, the ejection fraction is 35-40 percent. 9. Ventricular tachycardia, now in sinus rhythm on amiodarone. 10. Anemia, hematocrit remained stable PLAN: 1. Continue present care. 2. Transfuse on a needed basis, keep the hemoglobin above 8 or 9. 3. Keep the platelet count above 50,000 to prevent bleeding. 4. Avoid blood thinner for the time being. 5. Continue with beta-abdon and GUANACO inhibitor, and continue with proton pump inhibitor. 6. Patient could not be weaned off ventilator. He may require tracheostomy 7. No further bleeding noted 8. Weaning as per simplex operator ,discussed with the family Consultation Date/Type/Reason Admit Date/Time Apr 29, 2017 at 19:31 Initial Consult Date 05/02/17 Type of Consultation: cardiology Referring Provider: YENNY WINSTON MD 24 HR Interval Summary Subjective hx not possible: pt non-verbal, pt critical Exam/Review of Systems Vital Signs Vitals Vital Signs Date Time Temp Pulse Resp B/P Pulse Ox O2 Delivery O2 Flow Rate FiO2 05/19/17 08:00 82 05/19/17 04:53 21 100 30 05/19/17 02:00 129/103 Mechanical Ventilator 05/19/17 00:00 98.9 Intake and Output 05/18/17 05/18/17 05/19/17 15:00 23:00 07:00 Intake Total 1070 ml 494.18 ml 486.02 ml Output Total 3000 ml 0 ml 0 ml Balance -1930 ml 494.18 ml 486.02 ml Exam Constitutional: alert, oriented, well developed Psych: nl mood/affect, no complaints Head: atraumatic, normocephalic Eyes: EOMI, PERRL, nl conjunctiva, nl lids, nl sclera ENMT: nl external ears & nose, nl lips & teeth, nl nasal mucosa & septum Neck: non-tender, supple Respiratory: clear to auscultation, normal air movement Cardiovascular: nl pulses, regular rate and rhythm Gastrointestinal: nl liver, spleen, non-tender, soft Musculoskeletal: nl extremities to inspection, nl gait and stance Extremities: normal pulses Neurological: AMBULANCE OFFICER II-XII intact, nl mental status, nl speech, nl strength Skin: nl turgor, No rash or lesions Lymph: nl lymph nodes Results Result Diagram: 05/19/17 0500 05/19/17 0500 Results 24 hrs Laboratory Tests Test 05/19/17 05:00 05/19/17 05:13 White Blood Count 4.4 #L Red Blood Count 2.31 L Hemoglobin 7.5 L Hematocrit 22.8 L Mean Corpuscular Volume 98.7 Mean Corpuscular Hemoglobin 32.5 Mean Corpuscular Hemoglobin Concent 32.9 Red Cell Distribution Width 18.6 H Platelet Count 31 L Mean Platelet Volume 12.6 H Neutrophils % 82.4 H Lymphocytes % 7.0 L Monocytes % 7.2 Eosinophils % 2.9 Basophils % 0.0 Nucleated Red Blood Cells % 0.0 Neutrophils # 3.7 Lymphocytes # 0.3 L Monocytes # 0.3 Eosinophils # 0.1 Basophils # 0.0 Nucleated Red Blood Cells # 0.0 Sodium Level 145 H Potassium Level 3.8 Chloride Level 106 Carbon Dioxide Level 32 H Anion Gap 11 Blood Urea Nitrogen 52 H Creatinine 4.34 H Glucose Level 100 Calcium Level 8.3 L Total Bilirubin 0.5 Direct Bilirubin 0.00 Indirect Bilirubin 0.5 Aspartate Amino Transf (AST/SGOT) 66 H Alanine Aminotransferase (ALT/SGPT) 72 H Alkaline Phosphatase 197 H Total Protein 6.1 Albumin 2.7 L Globulin 3.40 H Albumin/Globulin Ratio 0.79 Lab Scanned Report BLOOD TRANSFUSION Medications Medications Current Medications Folic Acid (Folic Acid) 1 mg DAILY PO Last administered on 05/19/17 09:34; Admin Dose 1 MG; Start 04/30/17 at 09:00 Ondansetron HCl (Zofran Inj) 4 mg Q6H PRN IV NAUSEA AND/OR VOMITING Last administered on 05/03/17 23:24; Admin Dose 4 MG; Start 04/29/17 at 20:00 Nitroglycerin (Nitroglycerin (Sl Tab) 0.4 Mg) 1 tab Q5M PRN SL CHEST PAIN; Start 04/29/17 at 20:00 Acetaminophen (Tylenol Liquid) 650 mg Q6H PRN PO PAIN LEVEL 1-3 OR FEVER Last administered on 05/18/17 17:36; Admin Dose 650 MG; Start 04/29/17 at 20:00 Acetaminophen (Tylenol Tab) 650 mg Q6H PRN PO PAIN LEVEL 1-3 OR FEVER; Start at 20:00 Acetaminophen/ Hydrocodone Bitart ([place] (5/325)) 1 tab Q6H PRN PO PAIN LEVEL 4 -6; Start 04/29/17 at 20:00 Zolpidem Tartrate (Ambien) 5 mg QHS PRN PO INSOMNIA; Start 04/29/17 at 20:00 Docusate Sodium (Colace) 100 mg Q12H PRN PO CONSTIPATION; Start 04/29/17 at 20: 00 Bisacodyl (Dulcolax) 5 mg DAILY PRN PO CONSTIPATION; Start 04/29/17 at 20:00 Aspirin 325 mg 325 mg DAILY PO Last administered on 05/13/17 11:24; Admin Dose 325 MG; Start 04/30/17 at 09:00; Status Future Hold Vasopressin 60 unit/Dextrose 60 ml @ 1.2 mls/hr Q12H IV Last administered on 01:07; Admin Dose 2.4 MLS/HR; Start 04/30/17 at 13:00 Phenylephrine HCl 80 mg/Dextrose 250 ml @ 18.75 mls/ hr TITRATE IV Last administered on 05/04/17 09:57; Admin Dose 31.87 MLS/HR; Start 04/30/17 at 18: 00 Norepinephrine/ Dextrose (Levophed/D5W) 250 ml @ 0.46 mls/hr TITRATE IV Last administered on 05/18/17 20:36; Admin Dose 0.46 MLS/HR; Start 04/30/17 at 18:00 Pantoprazole (Protonix Iv) 40 mg BID@06,18 IV Last administered on 05/19/17 05 :15; Admin Dose 40 MG; Start 05/02/17 at 18:00 Diphenhydramine HCl 25 mg 25 mg Q4H PRN IV ITCHING Last administered on 18:01; Admin Dose 25 MG; Start 05/02/17 at 08:30 Dobutamine HCl/ Dextrose 250 ml @ 4.755 mls/ hr TITRATE IV Last administered on 05/07/17 05:21; Admin Dose 3.804 MLS/HR; Start 05/03/17 at 09:30 Miscellaneous Information 1 ea NOTE XX ; Start 05/03/17 at 13:00 Glucose (Glutose) 15 gm Q15M PRN PO DECREASED GLUCOSE; Start 05/03/17 at 12:45 Glucose (Glutose) 22.5 gm Q15M PRN PO DECREASED GLUCOSE; Start 05/03/17 at 12: 45 Dextrose (D50w Syringe) 25 ml Q15M PRN IV DECREASED GLUCOSE Last administered on 05/03/17 12:48; Admin Dose 25 ML; Start 05/03/17 at 12:45 Dextrose (D50w Syringe) 50 ml Q15M PRN IV DECREASED GLUCOSE; Start 05/03/17 at 12:46 Glucagon (Glucagen) 1 mg Q15M PRN IM DECREASED GLUCOSE; Start 05/03/17 at 12:46 Glucose 15 gm 15 gm Q15M PRN BUCCAL DECREASED GLUCOSE; Start 05/03/17 at 12:46 Midazolam HCl 50 ml @ 1 mls/hr TITRATE IV Last administered on 05/16/17 05:10 ; Admin Dose 3 MLS/HR; Start 05/03/17 at 15:00 Dextrose/Sodium Chloride (D5-NS) 1,000 ml @ 20 mls/hr Q24H IV Last administered on 05/18/17 17:37; Admin Dose 20 MLS/HR; Start 05/03/17 at 16:00 Metoclopramide HCl (Reglan) 5 mg Q6 IV Last administered on 05/19/17 05:15; Admin Dose 5 MG; Start 05/04/17 at 12:00 Nystatin 5 ml 5 ml QID PO Last administered on 05/19/17 09:34; Admin Dose 5 ML ; Start 05/04/17 at 13:00 Fentanyl (Sublimaze) 100 ml @ 5 mls/hr TITRATE IV Last administered on 05:11; Admin Dose 4 MLS/HR; Start 05/06/17 at 08:30 Eye Lubricant (Akwa Oint) 1 applic Q4 PRN BOTH EYES dryness Last administered on 05/08/17 08:59; Admin Dose 1 APPLIC; Start 05/07/17 at 13:00 Miscellaneous Information (Pending Santyl Order For Wound Care) This patient otto... PRN PRN XX WOUND CARE; Start 05/07/17 at 13:30 Carvedilol (Coreg) 3.125 mg BID PO Last administered on 05/17/17 09:44; Admin Dose 3.125 MG; Start 05/09/17 at 21:00 Lisinopril (Zestril) 2.5 mg DAILY PO Last administered on 05/17/17 09:44; Admin Dose 2.5 MG; Start 05/10/17 at 09:00 Morphine Sulfate (morphine) 1 mg Q4H PRN IV pain Last administered on 02:59; Admin Dose 1 MG; Start 05/10/17 at 09:00 Scopolamine 1 patch 1 patch Q72H TRANSDERM Last administered on 05/17/17 17:08 ; Admin Dose 1 PATCH; Start 05/11/17 at 16:30 Sodium Chloride (NS) 1,000 ml @ 0 mls/hr Q0M PRN IV TO KEEP SBP ABOVE 90; Start 05/12/17 at 08:24 Amiodarone HCl 400 mg 400 mg DAILY NGT Last administered on 05/19/17 09:34; Admin Dose 400 MG; Start 05/16/17 at 09:00 Albumin Human 100 ml @ 100 mls/hr DAILY IV Last administered on 05/19/17 09: 35; Admin Dose 100 MLS/HR; Start 05/18/17 at 09:00; Stop 05/22/17 at 08:59 Meropenem/Sodium Chloride (Merrem 500mg/50 ml(Pmx)) 50 ml @ 100 mls/hr Q24H IVPB ; Start 05/19/17 at 13:00 KASSI HOLLAND MD May 19, 2017 11:29
--- NOTE | 2017-05-19 12:23 | CONS ---
Date/Time of Note Date/Time of Note DATE: 05/19/17 TIME: 12:19 Assessment/Plan Assessment/Plan Additional Assessment/Plan Ventilator setting; AC of 16, tidal volume 500, PEEP of 5, 30% FiO2. Patient is currently on Levophed at 2 mics per minute. Assessment and recommendations; 1. Patient admitted with cardiogenic shock with significant radiological improvement. However still requiring pressor support for episodes of severe hypotension. 2. Prior history of CABG, also underwent coronary angiography during current admission with essentially negative findings. 3. Cardiomyopathy. 4. Chronic renal failure, on hemodialysis. 5. Anemia and severe thrombocytopenia. 6. History of cardiac arrhythmia. 7. Failure to be weaned from ventilator despite numerous attempts. Continue current treatment. Prognosis is extremely poor on account of multiple comorbidities. And is not in a clinical condition to be weaned from ventilator anytime soon. Family still contemplating issue of tracheostomy. However on account of severe thrombocytopenia that also would be a risky undertaking. Consultation Date/Type/Reason Admit Date/Time Apr 29, 2017 at 19:31 Initial Consult Date 05/01/17 Type of Consultation: Pulmonary/critical care Referring Provider: YENNY WINSTON MD 24 HR Interval Summary Free Text/Dictation Patient's condition remains critical. Remains hypotensive requiring low-dose pressor support. Patient has been off sedation and is awake. Exam/Review of Systems Vital Signs Vitals Vital Signs Date Time Temp Pulse Resp B/P Pulse Ox O2 Delivery O2 Flow Rate FiO2 05/19/17 11:30 65 16 104/48 100 05/19/17 11:00 Mechanical Ventilator 05/19/17 08:00 30 05/19/17 08:00 100.6 Intake and Output 05/18/17 05/18/17 05/19/17 15:00 23:00 07:00 Intake Total 1070 ml 494.18 ml 486.02 ml Output Total 3000 ml 0 ml 0 ml Balance -1930 ml 494.18 ml 486.02 ml Exam HEENT exam; supple neck, positive JVD. No lymphadenopathy. Midline trachea. No thyromegaly. Patient has multiple carious teeth. Very mild oral bleeding is seen. Orally intubated. Pupils are small bilaterally. Chest exam; diminished breath sounds bilaterally. S1-S2 audible, no murmurs. There is a well-healed sternal scar. Abdomen exam; soft, slightly protuberant. Bowel sounds are audible. Extremity exam; trace edema. Patient does have multiple ecchymosis involving all 4 extremities. ROLL UP HELPER exam; patient is awake. Results Result Diagram: 05/19/17 0500 05/19/17 0500 Results 24 hrs Laboratory Tests Test 05/19/17 05:00 05/19/17 05:13 White Blood Count 4.4 #L Red Blood Count 2.31 L Hemoglobin 7.5 L Hematocrit 22.8 L Mean Corpuscular Volume 98.7 Mean Corpuscular Hemoglobin 32.5 Mean Corpuscular Hemoglobin Concent 32.9 Red Cell Distribution Width 18.6 H Platelet Count 31 L Mean Platelet Volume 12.6 H Neutrophils % 82.4 H Lymphocytes % 7.0 L Monocytes % 7.2 Eosinophils % 2.9 Basophils % 0.0 Nucleated Red Blood Cells % 0.0 Neutrophils # 3.7 Lymphocytes # 0.3 L Monocytes # 0.3 Eosinophils # 0.1 Basophils # 0.0 Nucleated Red Blood Cells # 0.0 Sodium Level 145 H Potassium Level 3.8 Chloride Level 106 Carbon Dioxide Level 32 H Anion Gap 11 Blood Urea Nitrogen 52 H Creatinine 4.34 H Glucose Level 100 Calcium Level 8.3 L Total Bilirubin 0.5 Direct Bilirubin 0.00 Indirect Bilirubin 0.5 Aspartate Amino Transf (AST/SGOT) 66 H Alanine Aminotransferase (ALT/SGPT) 72 H Alkaline Phosphatase 197 H Total Protein 6.1 Albumin 2.7 L Globulin 3.40 H Albumin/Globulin Ratio 0.79 Lab Scanned Report BLOOD TRANSFUSION Medications Medications Current Medications Folic Acid (Folic Acid) 1 mg DAILY PO Last administered on 05/19/17 09:34; Admin Dose 1 MG; Start 04/30/17 at 09:00 Ondansetron HCl (Zofran Inj) 4 mg Q6H PRN IV NAUSEA AND/OR VOMITING Last administered on 05/03/17 23:24; Admin Dose 4 MG; Start 04/29/17 at 20:00 Nitroglycerin (Nitroglycerin (Sl Tab) 0.4 Mg) 1 tab Q5M PRN SL CHEST PAIN; Start 04/29/17 at 20:00 Acetaminophen (Tylenol Liquid) 650 mg Q6H PRN PO PAIN LEVEL 1-3 OR FEVER Last administered on 05/18/17 17:36; Admin Dose 650 MG; Start 04/29/17 at 20:00 Acetaminophen (Tylenol Tab) 650 mg Q6H PRN PO PAIN LEVEL 1-3 OR FEVER; Start at 20:00 Acetaminophen/ Hydrocodone Bitart ([place] (5/325)) 1 tab Q6H PRN PO PAIN LEVEL 4 -6; Start 04/29/17 at 20:00 Zolpidem Tartrate (Ambien) 5 mg QHS PRN PO INSOMNIA; Start 04/29/17 at 20:00 Docusate Sodium (Colace) 100 mg Q12H PRN PO CONSTIPATION; Start 04/29/17 at 20: 00 Bisacodyl (Dulcolax) 5 mg DAILY PRN PO CONSTIPATION; Start 04/29/17 at 20:00 Aspirin 325 mg 325 mg DAILY PO Last administered on 05/13/17 11:24; Admin Dose 325 MG; Start 04/30/17 at 09:00; Status Future Hold Vasopressin 60 unit/Dextrose 60 ml @ 1.2 mls/hr Q12H IV Last administered on 01:07; Admin Dose 2.4 MLS/HR; Start 04/30/17 at 13:00 Phenylephrine HCl 80 mg/Dextrose 250 ml @ 18.75 mls/ hr TITRATE IV Last administered on 05/04/17 09:57; Admin Dose 31.87 MLS/HR; Start 04/30/17 at 18: 00 Norepinephrine/ Dextrose (Levophed/D5W) 250 ml @ 0.46 mls/hr TITRATE IV Last administered on 05/18/17 20:36; Admin Dose 0.46 MLS/HR; Start 04/30/17 at 18:00 Pantoprazole (Protonix Iv) 40 mg BID@06,18 IV Last administered on 05/19/17 05 :15; Admin Dose 40 MG; Start 05/02/17 at 18:00 Diphenhydramine HCl 25 mg 25 mg Q4H PRN IV ITCHING Last administered on 18:01; Admin Dose 25 MG; Start 05/02/17 at 08:30 Dobutamine HCl/ Dextrose 250 ml @ 4.755 mls/ hr TITRATE IV Last administered on 05/07/17 05:21; Admin Dose 3.804 MLS/HR; Start 05/03/17 at 09:30 Miscellaneous Information 1 ea NOTE XX ; Start 05/03/17 at 13:00 Glucose (Glutose) 15 gm Q15M PRN PO DECREASED GLUCOSE; Start 05/03/17 at 12:45 Glucose (Glutose) 22.5 gm Q15M PRN PO DECREASED GLUCOSE; Start 05/03/17 at 12: 45 Dextrose (D50w Syringe) 25 ml Q15M PRN IV DECREASED GLUCOSE Last administered on 05/03/17 12:48; Admin Dose 25 ML; Start 05/03/17 at 12:45 Dextrose (D50w Syringe) 50 ml Q15M PRN IV DECREASED GLUCOSE; Start 05/03/17 at 12:46 Glucagon (Glucagen) 1 mg Q15M PRN IM DECREASED GLUCOSE; Start 05/03/17 at 12:46 Glucose 15 gm 15 gm Q15M PRN BUCCAL DECREASED GLUCOSE; Start 05/03/17 at 12:46 Midazolam HCl 50 ml @ 1 mls/hr TITRATE IV Last administered on 05/16/17 05:10 ; Admin Dose 3 MLS/HR; Start 05/03/17 at 15:00 Dextrose/Sodium Chloride (D5-NS) 1,000 ml @ 20 mls/hr Q24H IV Last administered on 05/18/17 17:37; Admin Dose 20 MLS/HR; Start 05/03/17 at 16:00 Metoclopramide HCl (Reglan) 5 mg Q6 IV Last administered on 05/19/17 05:15; Admin Dose 5 MG; Start 05/04/17 at 12:00 Nystatin 5 ml 5 ml QID PO Last administered on 05/19/17 09:34; Admin Dose 5 ML ; Start 05/04/17 at 13:00 Fentanyl (Sublimaze) 100 ml @ 5 mls/hr TITRATE IV Last administered on 05:11; Admin Dose 4 MLS/HR; Start 05/06/17 at 08:30 Eye Lubricant (Akwa Oint) 1 applic Q4 PRN BOTH EYES dryness Last administered on 05/08/17 08:59; Admin Dose 1 APPLIC; Start 05/07/17 at 13:00 Miscellaneous Information (Pending [facility] Order For Wound Care) This patient otto... PRN PRN XX WOUND CARE; Start 05/07/17 at 13:30 Carvedilol (Coreg) 3.125 mg BID PO Last administered on 05/17/17 09:44; Admin Dose 3.125 MG; Start 05/09/17 at 21:00 Lisinopril (Zestril) 2.5 mg DAILY PO Last administered on 05/17/17 09:44; Admin Dose 2.5 MG; Start 05/10/17 at 09:00 Morphine Sulfate (morphine) 1 mg Q4H PRN IV pain Last administered on 02:59; Admin Dose 1 MG; Start 05/10/17 at 09:00 Scopolamine 1 patch 1 patch Q72H TRANSDERM Last administered on 05/17/17 17:08 ; Admin Dose 1 PATCH; Start 05/11/17 at 16:30 Sodium Chloride (NS) 1,000 ml @ 0 mls/hr Q0M PRN IV TO KEEP SBP ABOVE 90; Start 05/12/17 at 08:24 Amiodarone HCl 400 mg 400 mg DAILY NGT Last administered on 05/19/17 09:34; Admin Dose 400 MG; Start 05/16/17 at 09:00 Albumin Human 100 ml @ 100 mls/hr DAILY IV Last administered on 05/19/17 09: 35; Admin Dose 100 MLS/HR; Start 05/18/17 at 09:00; Stop 05/22/17 at 08:59 Meropenem/Sodium Chloride 50 ml @ 100 mls/hr Q24H IVPB ; Start 05/19/17 at 13: 00 Vancomycin HCl (Vancocin) 250 ml @ 125 mls/hr ONCE IVPB ; Start 05/19/17 at 13: 00; Stop 05/19/17 at 14:59 CHARLES EMMANUEL May 19, 2017 12:23
[2017-05-19] MEDS: MEROPENEM 500MG/50 ML (PMX) 50 ML IVPB SCH (12:37)
[2017-05-19] MEDS ORDERED: VANCOMYCIN 1 GM in NS 250 ML IVPB SCH (13:00)
--- NOTE | 2017-05-19 13:02 | RADRPT ---
PROCEDURE: XR Chest. CLINICAL INDICATION: CHF TECHNIQUE: Single AP portable chest. COMPARISON: No prior 03/04/2015 FINDINGS: The cardiac silhouette is enlarged but stable in size. Extensive patchy interstitial and alveolar ai r space opacities with more focal nodular opacities and consolidation in the right lower lobe. These findings are suspicious for multifocal pneumonia. Underlying metastatic disease and pulmonary nodul es cannot be excluded. CT correlation is recommended of sternotomy wires in place. Endotracheal tube tip 4.5 cm above the jerry. NG tube tip overlying the fundus of the stomach. Atherosclerotic calc ification of the aorta. Small pleural effusions right greater than left. No pneumothorax. The osseou s structures and soft tissues are unremarkable. IMPRESSION: 1. Extensive bilateral airspace disease right greater than left. Multiple pulmonary nodules and cons olidation are noted at the right lung base. This may reflect pulmonary edema and CHF or multifocal p neumonia. Metastatic disease cannot be excluded. 2. Cardiomegaly. Small bilateral pleural effusions. 3. Support devices in satisfactory position . RPTAT:AAJJ Physician Jean Paul Date Time Electronically viewed and signed by Physician Jean Paul on 05/19/2017 13:02 KHANH/
--- NOTE | 2017-05-19 13:41 | PN ---
Date/Time of Note Date/Time of Note DATE: 05/19/17 TIME: 13:41 Assessment/Plan Lines/Catheters IV Catheter Type (from [facility]): Central Line Campos in Place (from [facility]): No Assessment/Plan Chief Complaint/Hosp Course IMPRESSION: Respiratory failure. RECOMMENDATIONS: We will proceed with placement of a tracheostomy when the family is agreeable. Problems: Exam/Review of Systems Vital Signs Vitals Vital Signs Date Time Temp Pulse Resp B/P Pulse Ox O2 Delivery O2 Flow Rate FiO2 05/19/17 12:00 65 05/19/17 11:30 16 104/48 100 05/19/17 11:00 Mechanical Ventilator 05/19/17 08:00 30 05/19/17 08:00 100.6 Intake and Output 05/18/17 05/18/17 05/19/17 15:00 23:00 07:00 Intake Total 1070 ml 494.18 ml 486.02 ml Output Total 3000 ml 0 ml 0 ml Balance -1930 ml 494.18 ml 486.02 ml Results Result Diagram: 05/19/17 0500 05/19/17 0500 MALEKATHARINA LOUIS MD May 19, 2017 13:41
--- NOTE | 2017-05-19 14:13 | PN ---
DATE: 05/19/2017 SUBJECTIVE: The patient was started on low dose Levophed drip yesterday. He spiked a fever yesterd ay of 101.1, currently afebrile. VITAL SIGNS: Temperature 98.9, pulse 82, respirations 20, blood pressure 129/103, saturation 100 on vent. WBC 4.4, H and H 7.5 and 22.8, platelets 31, neutrophils 82.4. INDWELLINGS: Endotracheal tube, NG tube, right femoral triple lumen catheter, left upper extremity AV fistula. PHYSICAL EXAMINATION: GENERAL: This is a fragile, chronically ill-appearing, elderly man who is intubated, sedated and in no distress. HEENT: Head atraumatic, normocephalic. Sclerae anicteric. Buccal mucosa dry. NECK: Supple, trachea midline. CHEST: Rise symmetrical. Breath sounds diminished to bases. HEART: S1, S2. ABDOMEN: Soft. Bowel tones hypoactive. EXTREMITIES: With cyanosis. Mottled and trace edema. ASSESSMENT: 1. Septic shock, possibly cardiogenic. 2. Healthcare-associated pneumonia. 3. Acute respiratory failure. 4. Acute myocardial infarction, status post left heart catheterization on 05/13/2017. 5. End-stage renal disease, on hemodialysis. 6. History of coronary artery bypass graft. 7. Anemia with severe thrombocytopenia. PLAN: We are going to repeat cultures and start the patient on vancomycin and meropenem. Consider femoral line change, await for family decision regarding tracheostomy. Dictated By: CHACE DENNISON CLOTH SPONGER for JOSE HUMPHREY/PHYLLIS Conf#: [id number] DID#: [id number]
--- NOTE | 2017-05-19 16:50 | PN ---
Date/Time of Note Date/Time of Note DATE: 05/19/17 TIME: 16:45 Assessment/Plan VTE Prophylaxis VTE Prophylaxis Intervention: other Lines/Catheters IV Catheter Type (from Nrs): Central Line Central line still needed: Yes Urinary Cath still in place: No Assessment/Plan Chief Complaint/Hosp Course A/P NSTEMI S/P V TACH ESRD PUL EDEMA BETTER SHOCK LIVER BETTER PNEUMONIA SYS HEAR T FAILURE BETTER ANEMIA LOW PLATELET VDRF S/P CATH NO PCI LOW EF BETTER PER DR SIMON DVT ARM ESOPHAGIAL DILATITION PER GI HX EDEMA ARMS PLAN CONTINUE HD TRACH SOON FEEDING WEANING Problems: Subjective 24 Hr Interval Summary Subjective hx not possible: other (ON VENT WILL NEED TRAC FAMILY OK W TRACH NOW ) Exam/Review of Systems Vital Signs Vitals Vital Signs Date Time Temp Pulse Resp B/P Pulse Ox O2 Delivery O2 Flow Rate FiO2 05/19/17 12:50 68 18 100 30 05/19/17 11:30 104/48 05/19/17 11:00 Mechanical Ventilator 05/19/17 08:00 100.6 Intake and Output 05/18/17 05/18/17 05/19/17 14:59 22:59 06:59 Intake Total 1100 ml 492.31 ml 547.89 ml Output Total 3000 ml 0 ml 0 ml Balance -1900 ml 492.31 ml 547.89 ml Exam Respiratory: diminished breath sounds Cardiovascular: regular rate and rhythm Gastrointestinal: bowel sounds (+), soft Extremities: No edema Results Result Diagram: 05/19/17 0500 05/19/17 0500 Results 24 hrs Laboratory Tests Test 05/19/17 05:00 05/19/17 05:13 White Blood Count 4.4 #L Red Blood Count 2.31 L Hemoglobin 7.5 L Hematocrit 22.8 L Mean Corpuscular Volume 98.7 Mean Corpuscular Hemoglobin 32.5 Mean Corpuscular Hemoglobin Concent 32.9 Red Cell Distribution Width 18.6 H Platelet Count 31 L Mean Platelet Volume 12.6 H Neutrophils % 82.4 H Lymphocytes % 7.0 L Monocytes % 7.2 Eosinophils % 2.9 Basophils % 0.0 Nucleated Red Blood Cells % 0.0 Neutrophils # 3.7 Lymphocytes # 0.3 L Monocytes # 0.3 Eosinophils # 0.1 Basophils # 0.0 Nucleated Red Blood Cells # 0.0 Sodium Level 145 H Potassium Level 3.8 Chloride Level 106 Carbon Dioxide Level 32 H Anion Gap 11 Blood Urea Nitrogen 52 H Creatinine 4.34 H Glucose Level 100 Calcium Level 8.3 L Total Bilirubin 0.5 Direct Bilirubin 0.00 Indirect Bilirubin 0.5 Aspartate Amino Transf (AST/SGOT) 66 H Alanine Aminotransferase (ALT/SGPT) 72 H Alkaline Phosphatase 197 H Total Protein 6.1 Albumin 2.7 L Globulin 3.40 H Albumin/Globulin Ratio 0.79 Lab Scanned Report BLOOD TRANSFUSION Medications Medications Current Medications Folic Acid (Folic Acid) 1 mg DAILY PO Last administered on 05/19/17 09:34; Admin Dose 1 MG; Start 04/30/17 at 09:00 Ondansetron HCl (Zofran Inj) 4 mg Q6H PRN IV NAUSEA AND/OR VOMITING Last administered on 05/03/17 23:24; Admin Dose 4 MG; Start 04/29/17 at 20:00 Nitroglycerin (Nitroglycerin (Sl Tab) 0.4 Mg) 1 tab Q5M PRN SL CHEST PAIN; Start 04/29/17 at 20:00 Acetaminophen (Tylenol Liquid) 650 mg Q6H PRN PO PAIN LEVEL 1-3 OR FEVER Last administered on 05/18/17 17:36; Admin Dose 650 MG; Start 04/29/17 at 20:00 Acetaminophen (Tylenol Tab) 650 mg Q6H PRN PO PAIN LEVEL 1-3 OR FEVER; Start at 20:00 Acetaminophen/ Hydrocodone Bitart ([place] (5/325)) 1 tab Q6H PRN PO PAIN LEVEL 4 -6 Last administered on 05/19/17 15:12; Admin Dose 1 TAB; Start 04/29/17 at 20: 00 Zolpidem Tartrate (Ambien) 5 mg QHS PRN PO INSOMNIA; Start 04/29/17 at 20:00 Docusate Sodium (Colace) 100 mg Q12H PRN PO CONSTIPATION; Start 04/29/17 at 20: 00 Bisacodyl (Dulcolax) 5 mg DAILY PRN PO CONSTIPATION; Start 04/29/17 at 20:00 Aspirin 325 mg 325 mg DAILY PO Last administered on 05/13/17 11:24; Admin Dose 325 MG; Start 04/30/17 at 09:00; Status Future Hold Vasopressin 60 unit/Dextrose 60 ml @ 1.2 mls/hr Q12H IV Last administered on 01:07; Admin Dose 2.4 MLS/HR; Start 04/30/17 at 13:00 Phenylephrine HCl 80 mg/Dextrose 250 ml @ 18.75 mls/ hr TITRATE IV Last administered on 05/04/17 09:57; Admin Dose 31.87 MLS/HR; Start 04/30/17 at 18: 00 Norepinephrine/ Dextrose (Levophed/D5W) 250 ml @ 0.46 mls/hr TITRATE IV Last administered on 05/19/17 08:24; Admin Dose 0.93 MLS/HR; Start 04/30/17 at 18:00 Pantoprazole (Protonix Iv) 40 mg BID@06,18 IV Last administered on 05/19/17 05 :15; Admin Dose 40 MG; Start 05/02/17 at 18:00 Diphenhydramine HCl 25 mg 25 mg Q4H PRN IV ITCHING Last administered on 18:01; Admin Dose 25 MG; Start 05/02/17 at 08:30 Dobutamine HCl/ Dextrose 250 ml @ 4.755 mls/ hr TITRATE IV Last administered on 05/07/17 05:21; Admin Dose 3.804 MLS/HR; Start 05/03/17 at 09:30 Miscellaneous Information 1 ea NOTE XX ; Start 05/03/17 at 13:00 Glucose (Glutose) 15 gm Q15M PRN PO DECREASED GLUCOSE; Start 05/03/17 at 12:45 Glucose (Glutose) 22.5 gm Q15M PRN PO DECREASED GLUCOSE; Start 05/03/17 at 12: 45 Dextrose (D50w Syringe) 25 ml Q15M PRN IV DECREASED GLUCOSE Last administered on 05/03/17 12:48; Admin Dose 25 ML; Start 05/03/17 at 12:45 Dextrose (D50w Syringe) 50 ml Q15M PRN IV DECREASED GLUCOSE; Start 05/03/17 at 12:46 Glucagon (Glucagen) 1 mg Q15M PRN IM DECREASED GLUCOSE; Start 05/03/17 at 12:46 Glucose 15 gm 15 gm Q15M PRN BUCCAL DECREASED GLUCOSE; Start 05/03/17 at 12:46 Midazolam HCl 50 ml @ 1 mls/hr TITRATE IV Last administered on 05/16/17 05:10 ; Admin Dose 3 MLS/HR; Start 05/03/17 at 15:00 Dextrose/Sodium Chloride (D5-NS) 1,000 ml @ 20 mls/hr Q24H IV Last administered on 05/18/17 17:37; Admin Dose 20 MLS/HR; Start 05/03/17 at 16:00 Metoclopramide HCl (Reglan) 5 mg Q6 IV Last administered on 05/19/17 12:37; Admin Dose 5 MG; Start 05/04/17 at 12:00 Nystatin 5 ml 5 ml QID PO Last administered on 05/19/17 12:38; Admin Dose 5 ML ; Start 05/04/17 at 13:00 Fentanyl (Sublimaze) 100 ml @ 5 mls/hr TITRATE IV Last administered on 05:11; Admin Dose 4 MLS/HR; Start 05/06/17 at 08:30 Eye Lubricant (Akwa Oint) 1 applic Q4 PRN BOTH EYES dryness Last administered on 05/08/17 08:59; Admin Dose 1 APPLIC; Start 05/07/17 at 13:00 Miscellaneous Information (Pending [facility] Order For Wound Care) This patient otto... PRN PRN XX WOUND CARE; Start 05/07/17 at 13:30 Carvedilol (Coreg) 3.125 mg BID PO Last administered on 05/17/17 09:44; Admin Dose 3.125 MG; Start 05/09/17 at 21:00 Lisinopril (Zestril) 2.5 mg DAILY PO Last administered on 05/17/17 09:44; Admin Dose 2.5 MG; Start 05/10/17 at 09:00 Morphine Sulfate (morphine) 1 mg Q4H PRN IV pain Last administered on 02:59; Admin Dose 1 MG; Start 05/10/17 at 09:00 Scopolamine 1 patch 1 patch Q72H TRANSDERM Last administered on 05/17/17 17:08 ; Admin Dose 1 PATCH; Start 05/11/17 at 16:30 Sodium Chloride (NS) 1,000 ml @ 0 mls/hr Q0M PRN IV TO KEEP SBP ABOVE 90; Start 05/12/17 at 08:24 Amiodarone HCl 400 mg 400 mg DAILY NGT Last administered on 05/19/17 09:34; Admin Dose 400 MG; Start 05/16/17 at 09:00 Albumin Human 100 ml @ 100 mls/hr DAILY IV Last administered on 05/19/17 09: 35; Admin Dose 100 MLS/HR; Start 05/18/17 at 09:00; Stop 05/22/17 at 08:59 Meropenem/Sodium Chloride (Merrem 500mg/50 ml(Pmx)) 50 ml @ 100 mls/hr Q24H IVPB Last administered on 05/19/17 12:37; Admin Dose 100 MLS/HR; Start at 13:00 YENNY WINSTON MD May 19, 2017 16:50
[2017-05-19] MEDS: FENTAnyl (DRIP) 1000 mcg/100mL 100 ML IV SCH (23:00)
[2017-05-19] MEDS: MIDAZOLAM (DRIP) 50 mg/50 mL 50 ML IV SCH (23:13)
[2017-05-20] VITALS (90 sets, daily range): BP systolic 76–163; BP diastolic 33–91; PULSE 65–93; RESP 14–26
[2017-05-20] MEDS: METOCLOPRAMIDE 10 MG INJ IV SCH ×5 (00:37→23:34)
[2017-05-20] MEDS: VASOPRESSIN 60 UNIT in DEXTROSE 5% 57 ML IV SCH ×3 (01:00→23:49)
[2017-05-20] MEDS: IPRATROPIUM (HFA) 12.9 GM INHALER INH SCH ×4 (01:34→19:58)
[2017-05-20] MEDS: ALBUTEROL 18 GM INHALER INH SCH ×4 (01:35→19:58)
[2017-05-20] MEDS: DEXTROSE 5%-0.9% NACL 1,000 ML IV SCH ×2 (05:16→16:00)
[2017-05-20] MEDS: PANTOPRAZOLE 40 MG INJ IV SCH ×2 (05:30→17:23)
[2017-05-20 06:07] LABS: HEMATOCRIT 22.2 % (42.0-52.0); HEMOGLOBIN 7.1 g/dl (14.0-18.0); MEAN CORPUSCULAR HEMOGLOBIN 31.1 pg (29.0-33.0); MEAN CORPUSCULAR VOLUME 97.4 fl (82.0-101.0); RED BLOOD COUNT 2.28 10^6/ul (4.70-6.10); RED CELL DISTRIBUTION WIDTH 18.8 % (11.5-14.5); WHITE BLOOD COUNT 3.7 10^3/ul (4.8-10.8)
[2017-05-20 06:08] LABS: ABNORMAL IP MESSAGE 1; POSITIVE DIFF @See below
[2017-05-20 06:39] LABS: ALBUMIN 2.9 g/dl (3.3-4.9); ALBUMIN/GLOBULIN RATIO 0.93; BILIRUBIN,INDIRECT 0.5 mg/dl (0-1.1); BILIRUBIN,TOTAL 0.5 mg/dl (0.2-1.3); CALCIUM 7.8 mg/dl (8.4-10.2); CREATININE 5.45 mg/dl (0.61-1.24); POTASSIUM 4.2 mmol/L (3.5-5.1)
[2017-05-20 06:58] LABS: PLATELET COUNT 27 10^3/UL (140-415)
[2017-05-20 08:03] LABS: ANISOCYTOSIS 2+ (0-0); BURR CELLS 1+ (0-0); GIANT THROMBO% (M) 3 % (0-0); TARGET CELLS 1+ (0-0)
[2017-05-20] MEDS: LISINOPRIL 5 MG TAB PO SCH (08:32)
[2017-05-20] MEDS ORDERED: SOD CHLORIDE 0.9% 250 ML IV* ONE (08:55)
[2017-05-20] MEDS: ALBUMIN HUMAN 25% 100 ML IV SCH (09:25)
[2017-05-20] MEDS: AMIODARONE 200 MG TAB NGT SCH (09:26)
[2017-05-20] MEDS: BALSAM PERU/CASTOR OIL 60 GM TUBE TOP SCH ×2 (09:26→20:54)
[2017-05-20] MEDS: FOLIC ACID 1 MG TAB PO SCH (09:26)
[2017-05-20] MEDS: NYSTATIN SUSP 5 ML CUP PO SCH ×4 (09:26→20:53)
[2017-05-20] MEDS: FENTAnyl (DRIP) 1000 mcg/100mL 100 ML IV SCH (09:31)
[2017-05-20 09:36] LABS: BASOPHILS % (M) 1 % (0-2); EOSINOPHILS % (M) 6 % (0-7); HYPOCHROMASIA 1+ (0-0); MONOCYTES % (M) 2 % (0-11); OVALOCYTES 1+ (0-0); PLATELET ESTIMATE DECREASED; POIKILOCYTOSIS 1+ (0-0)
[2017-05-20] MEDS: ACETAMINOPHEN 650MG/20.3ML CUP PO PRN (10:03)
--- NOTE | 2017-05-20 10:59 | CONS ---
Date/Time of Note Date/Time of Note DATE: 05/20/17 TIME: 10:53 Consult Date/Type/Reason Admit Date/Time Apr 29, 2017 at 19:31 Initial Consult Date 05/02/17 Type of Consultation: Pulmonary/critical care Ordering Provider: YENNY WINSTON MD Subjective Patient continues mechanical ventilation. Remains somnolent. Still has moderate bleeding from his mouth. Objective Vital Signs Date Time Temp Pulse Resp B/P Pulse Ox O2 Delivery O2 Flow Rate FiO2 05/20/17 08:00 90 05/20/17 06:00 19 94/39 100 Mechanical Ventilator 05/20/17 05:40 30 05/20/17 04:00 99.5 Intake and Output 05/19/17 05/19/17 05/20/17 15:00 23:00 07:00 Intake Total 455.10 ml 453.68 ml 555.69 ml Output Total 0 ml 0 ml 0 ml Balance 455.10 ml 453.68 ml 555.69 ml Exam PHYSICAL EXAMINATION GENERAL: Elderly gentleman, orally intubated on mechanical ventilation VITAL SIGNS: see below. HEENT: Pupils equal, round, and reactive to light. CARDIAC: S1, S2, 1/6 systolic ejection murmur CHEST: Diminished air entry bilaterally. ABDOMEN: Mildly distended. Bowel sounds present no guarding or rebound EXTREMITIES: No cyanosis, clubbing edema +1 NEUROLOGIC: Generalized weakness Results/Medications Result Diagram: 05/20/17 0500 05/20/17 0500 Results 24 hrs Chest x-ray Right lower lobe infiltrate Laboratory Tests Test 05/20/17 05:00 White Blood Count 3.7 L Red Blood Count 2.28 L Hemoglobin 7.1 L Hematocrit 22.2 L Mean Corpuscular Volume 97.4 Mean Corpuscular Hemoglobin 31.1 Mean Corpuscular Hemoglobin Concent 32.0 Red Cell Distribution Width 18.8 H Platelet Count 27 *L Mean Platelet Volume 13.0 H Neutrophils % Segmented Neutrophils % (Manual) 67 Band Neutrophils % (Manual) 14 H Lymphocytes % Lymphocytes % (Manual) 10 L Monocytes % Monocytes % (Manual) 2 Eosinophils % Eosinophils % (Manual) 6 Basophils % Basophils % (Manual) 1 Nucleated Red Blood Cells % 0.0 Neutrophils # Neutrophils # (Manual) 2.5 Band Neutrophils # 0.5 Absolute Lymphocytes (Manual) 0.3 L Lymphocytes # Monocytes # Absolute Monocytes (Manual) 0.0 L Eosinophils # Basophils # Basophils # (Manual) 0.0 Nucleated Red Blood Cells # Platelet Estimate DECREASED Giant Platelets 3 H Hypochromasia 1+ Poikilocytosis 1+ Anisocytosis 2+ Macrocytosis 1+ Target Cells 1+ Ovalocytes 1+ Sodium Level 145 H Potassium Level 4.2 Chloride Level 107 Carbon Dioxide Level 29 Anion Gap 13 Blood Urea Nitrogen 70 H Creatinine 5.45 H Glucose Level 80 Calcium Level 7.8 L Total Bilirubin 0.5 Direct Bilirubin 0.00 Indirect Bilirubin 0.5 Aspartate Amino Transf (AST/SGOT) 49 H Alanine Aminotransferase (ALT/SGPT) 61 Alkaline Phosphatase 161 H Total Protein 6.0 L Albumin 2.9 L Globulin 3.10 Albumin/Globulin Ratio 0.93 Medications Current Medications Folic Acid (Folic Acid) 1 mg DAILY PO Last administered on 05/20/17 09:26; Admin Dose 1 MG; Start 04/30/17 at 09:00 Ondansetron HCl (Zofran Inj) 4 mg Q6H PRN IV NAUSEA AND/OR VOMITING Last administered on 05/03/17 23:24; Admin Dose 4 MG; Start 04/29/17 at 20:00 Nitroglycerin (Nitroglycerin (Sl Tab) 0.4 Mg) 1 tab Q5M PRN SL CHEST PAIN; Start 04/29/17 at 20:00 Acetaminophen (Tylenol Liquid) 650 mg Q6H PRN PO PAIN LEVEL 1-3 OR FEVER Last administered on 05/20/17 10:03; Admin Dose 650 MG; Start 04/29/17 at 20:00 Acetaminophen (Tylenol Tab) 650 mg Q6H PRN PO PAIN LEVEL 1-3 OR FEVER; Start at 20:00 Acetaminophen/ Hydrocodone Bitart ([place] (5/325)) 1 tab Q6H PRN PO PAIN LEVEL 4 -6 Last administered on 05/19/17 15:12; Admin Dose 1 TAB; Start 04/29/17 at 20: 00 Zolpidem Tartrate (Ambien) 5 mg QHS PRN PO INSOMNIA; Start 04/29/17 at 20:00 Docusate Sodium (Colace) 100 mg Q12H PRN PO CONSTIPATION; Start 04/29/17 at 20: 00 Bisacodyl (Dulcolax) 5 mg DAILY PRN PO CONSTIPATION; Start 04/29/17 at 20:00 Aspirin 325 mg 325 mg DAILY PO Last administered on 05/13/17 11:24; Admin Dose 325 MG; Start 04/30/17 at 09:00; Status Future Hold Vasopressin 60 unit/Dextrose 60 ml @ 1.2 mls/hr Q12H IV Last administered on 01:07; Admin Dose 2.4 MLS/HR; Start 04/30/17 at 13:00 Phenylephrine HCl 80 mg/Dextrose 250 ml @ 18.75 mls/ hr TITRATE IV Last administered on 05/04/17 09:57; Admin Dose 31.87 MLS/HR; Start 04/30/17 at 18: 00 Norepinephrine/ Dextrose (Levophed/D5W) 250 ml @ 0.46 mls/hr TITRATE IV Last administered on 05/19/17 08:24; Admin Dose 0.93 MLS/HR; Start 04/30/17 at 18:00 Pantoprazole (Protonix Iv) 40 mg BID@06,18 IV Last administered on 05/20/17 05 :30; Admin Dose 40 MG; Start 05/02/17 at 18:00 Diphenhydramine HCl 25 mg 25 mg Q4H PRN IV ITCHING Last administered on 18:01; Admin Dose 25 MG; Start 05/02/17 at 08:30 Dobutamine HCl/ Dextrose 250 ml @ 4.755 mls/ hr TITRATE IV Last administered on 05/07/17 05:21; Admin Dose 3.804 MLS/HR; Start 05/03/17 at 09:30 Miscellaneous Information 1 ea NOTE XX ; Start 05/03/17 at 13:00 Glucose (Glutose) 15 gm Q15M PRN PO DECREASED GLUCOSE; Start 05/03/17 at 12:45 Glucose (Glutose) 22.5 gm Q15M PRN PO DECREASED GLUCOSE; Start 05/03/17 at 12: 45 Dextrose (D50w Syringe) 25 ml Q15M PRN IV DECREASED GLUCOSE Last administered on 05/03/17 12:48; Admin Dose 25 ML; Start 05/03/17 at 12:45 Dextrose (D50w Syringe) 50 ml Q15M PRN IV DECREASED GLUCOSE; Start 05/03/17 at 12:46 Glucagon (Glucagen) 1 mg Q15M PRN IM DECREASED GLUCOSE; Start 05/03/17 at 12:46 Glucose 15 gm 15 gm Q15M PRN BUCCAL DECREASED GLUCOSE; Start 05/03/17 at 12:46 Midazolam HCl 50 ml @ 1 mls/hr TITRATE IV Last administered on 05/19/17 23:13 ; Admin Dose 1 MLS/HR; Start 05/03/17 at 15:00 Dextrose/Sodium Chloride (D5-NS) 1,000 ml @ 20 mls/hr Q24H IV Last administered on 05/20/17 05:16; Admin Dose 20 MLS/HR; Start 05/03/17 at 16:00 Metoclopramide HCl (Reglan) 5 mg Q6 IV Last administered on 05/20/17 05:30; Admin Dose 5 MG; Start 05/04/17 at 12:00 Nystatin 5 ml 5 ml QID PO Last administered on 05/20/17 09:26; Admin Dose 5 ML ; Start 05/04/17 at 13:00 Fentanyl (Sublimaze) 100 ml @ 5 mls/hr TITRATE IV Last administered on 09:31; Admin Dose 7.5 MLS/HR; Start 05/06/17 at 08:30 Eye Lubricant (Akwa Oint) 1 applic Q4 PRN BOTH EYES dryness Last administered on 05/08/17 08:59; Admin Dose 1 APPLIC; Start 05/07/17 at 13:00 Miscellaneous Information (Pending [facility] Order For Wound Care) This patient otto... PRN PRN XX WOUND CARE; Start 05/07/17 at 13:30 Carvedilol (Coreg) 3.125 mg BID PO Last administered on 05/17/17 09:44; Admin Dose 3.125 MG; Start 05/09/17 at 21:00 Lisinopril (Zestril) 2.5 mg DAILY PO Last administered on 05/17/17 09:44; Admin Dose 2.5 MG; Start 05/10/17 at 09:00 Morphine Sulfate (morphine) 1 mg Q4H PRN IV pain Last administered on 21:15; Admin Dose 1 MG; Start 05/10/17 at 09:00 Scopolamine 1 patch 1 patch Q72H TRANSDERM Last administered on 05/17/17 17:08 ; Admin Dose 1 PATCH; Start 05/11/17 at 16:30 Sodium Chloride (NS) 1,000 ml @ 0 mls/hr Q0M PRN IV TO KEEP SBP ABOVE 90; Start 05/12/17 at 08:24 Amiodarone HCl 400 mg 400 mg DAILY NGT Last administered on 05/20/17 09:26; Admin Dose 400 MG; Start 05/16/17 at 09:00 Albumin Human 100 ml @ 100 mls/hr DAILY IV Last administered on 05/20/17 09: 25; Admin Dose 100 MLS/HR; Start 05/18/17 at 09:00; Stop 05/22/17 at 08:59 Meropenem/Sodium Chloride (Merrem 500mg/50 ml(Pmx)) 50 ml @ 100 mls/hr Q24H IVPB Last administered on 05/19/17 12:37; Admin Dose 100 MLS/HR; Start at 13:00 Miscellaneous Information (*Rx Drug Level Order Reminder*) RANDOM VANCOMYCIN ON ... ONCE ONCE XX ; Start 05/21/17 at 05:00; Stop 05/21/17 at 05:01 Assessment/Plan Chief Complaint/Hosp Course Assessment 1. Hypoxemic respiratory failure on mechanical ventilation, persistent respiratory failure patient unable to wean from mechanical ventilation despite multiple weaning trials. Family considering plan of care. Tracheostomy not consistent with patient's wishes. 2. Multiorgan failure with status post septic shock with persistent thrombocytopenia. 3. Recent upper GI bleed. 4. Dysphagia nasogastric tube in place 5. 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 End-stage renal failure on hemodialysis Plan 1. Continue broad-spectrum antibiotics, 2. Continue hemodialysis as tolerated 3. Continue mechanical ventilation 4. Start tube feeding 5. DVT and GI prophylaxis Long discussion with family at bedside today. I explained patient's extremely poor prognosis. Tracheostomy and PEG tube are not consistent with patient's wishes. He did not wish to stay in care home long-term. Currently tracheostomy improve his quality of life. Would extend his life however not improve the quality of his life. Patient's family are conflicted as to which way to proceed. I have advised them to follow the patient's wishes. Problems: JIN SANTANA MD, [facility] May 20, 2017 10:59
--- NOTE | 2017-05-20 13:13 | CONS ---
Date/Time of Note Date/Time of Note DATE: 05/20/17 TIME: 13:12 Assessment/Plan Assessment/Plan Additional Assessment/Plan Additional Assessment/Plan IMPRESSION: 1. Gastrointestinal bleeding. No active bleeding at this point 2. History of esophageal stricture status post dilatation. 3. Status post coronary angiogram. 4. Renal failure on dialysis. 5. Thrombocytopenia. 6. Respiratory failure on vent. 7. Shock liver but now the liver function is back to normal. 8. Congestive heart failure, the ejection fraction is 35-40 percent. 9. Ventricular tachycardia, now in sinus rhythm on amiodarone. 10. Anemia, hematocrit remained stable PLAN: 1. Continue present care. 2. Transfuse on a needed basis, keep the hemoglobin above 8 or 9. 3. Keep the platelet count above 50,000 to prevent bleeding. 4. Avoid blood thinner for the time being. 5. Continue with beta-abdon and GUANACO inhibitor, and continue with proton pump inhibitor. 6. Patient could not be weaned off ventilator. He may require tracheostomy 7. No further bleeding noted as per the staff Consultation Date/Type/Reason Admit Date/Time Apr 29, 2017 at 19:31 Initial Consult Date 05/02/17 Type of Consultation: Pulmonary/critical care Referring Provider: YENNY WINSTON MD 24 HR Interval Summary Subjective hx not possible: pt non-verbal, pt critical Exam/Review of Systems Vital Signs Vitals Vital Signs Date Time Temp Pulse Resp B/P Pulse Ox O2 Delivery O2 Flow Rate FiO2 05/20/17 12:00 72 05/20/17 06:00 19 94/39 100 Mechanical Ventilator 05/20/17 05:40 30 05/20/17 04:00 99.5 Intake and Output 05/19/17 05/19/17 05/20/17 15:00 23:00 07:00 Intake Total 455.10 ml 453.68 ml 555.69 ml Output Total 0 ml 0 ml 0 ml Balance 455.10 ml 453.68 ml 555.69 ml Exam Respiratory: other (And is on vent) Cardiovascular: nl pulses, regular rate and rhythm Gastrointestinal: nl liver, spleen, non-tender, soft Extremities: normal pulses Results Result Diagram: 05/20/17 0500 05/20/17 0500 Results 24 hrs Laboratory Tests Test 05/20/17 05:00 White Blood Count 3.7 L Red Blood Count 2.28 L Hemoglobin 7.1 L Hematocrit 22.2 L Mean Corpuscular Volume 97.4 Mean Corpuscular Hemoglobin 31.1 Mean Corpuscular Hemoglobin Concent 32.0 Red Cell Distribution Width 18.8 H Platelet Count 27 *L Mean Platelet Volume 13.0 H Neutrophils % Segmented Neutrophils % (Manual) 67 Band Neutrophils % (Manual) 14 H Lymphocytes % Lymphocytes % (Manual) 10 L Monocytes % Monocytes % (Manual) 2 Eosinophils % Eosinophils % (Manual) 6 Basophils % Basophils % (Manual) 1 Nucleated Red Blood Cells % 0.0 Neutrophils # Neutrophils # (Manual) 2.5 Band Neutrophils # 0.5 Absolute Lymphocytes (Manual) 0.3 L Lymphocytes # Monocytes # Absolute Monocytes (Manual) 0.0 L Eosinophils # Basophils # Basophils # (Manual) 0.0 Nucleated Red Blood Cells # Platelet Estimate DECREASED Giant Platelets 3 H Hypochromasia 1+ Poikilocytosis 1+ Anisocytosis 2+ Macrocytosis 1+ Target Cells 1+ Ovalocytes 1+ Sodium Level 145 H Potassium Level 4.2 Chloride Level 107 Carbon Dioxide Level 29 Anion Gap 13 Blood Urea Nitrogen 70 H Creatinine 5.45 H Glucose Level 80 Calcium Level 7.8 L Total Bilirubin 0.5 Direct Bilirubin 0.00 Indirect Bilirubin 0.5 Aspartate Amino Transf (AST/SGOT) 49 H Alanine Aminotransferase (ALT/SGPT) 61 Alkaline Phosphatase 161 H Total Protein 6.0 L Albumin 2.9 L Globulin 3.10 Albumin/Globulin Ratio 0.93 Medications Medications Current Medications Folic Acid (Folic Acid) 1 mg DAILY PO Last administered on 05/20/17 09:26; Admin Dose 1 MG; Start 04/30/17 at 09:00 Ondansetron HCl (Zofran Inj) 4 mg Q6H PRN IV NAUSEA AND/OR VOMITING Last administered on 05/03/17 23:24; Admin Dose 4 MG; Start 04/29/17 at 20:00 Nitroglycerin (Nitroglycerin (Sl Tab) 0.4 Mg) 1 tab Q5M PRN SL CHEST PAIN; Start 04/29/17 at 20:00 Acetaminophen (Tylenol Liquid) 650 mg Q6H PRN PO PAIN LEVEL 1-3 OR FEVER Last administered on 05/20/17 10:03; Admin Dose 650 MG; Start 04/29/17 at 20:00 Acetaminophen (Tylenol Tab) 650 mg Q6H PRN PO PAIN LEVEL 1-3 OR FEVER; Start at 20:00 Acetaminophen/ Hydrocodone Bitart ([place] (5/325)) 1 tab Q6H PRN PO PAIN LEVEL 4 -6 Last administered on 05/19/17 15:12; Admin Dose 1 TAB; Start 04/29/17 at 20: 00 Zolpidem Tartrate (Ambien) 5 mg QHS PRN PO INSOMNIA; Start 04/29/17 at 20:00 Docusate Sodium (Colace) 100 mg Q12H PRN PO CONSTIPATION; Start 04/29/17 at 20: 00 Bisacodyl (Dulcolax) 5 mg DAILY PRN PO CONSTIPATION; Start 04/29/17 at 20:00 Aspirin 325 mg 325 mg DAILY PO Last administered on 05/13/17 11:24; Admin Dose 325 MG; Start 04/30/17 at 09:00; Status Future Hold Vasopressin 60 unit/Dextrose 60 ml @ 1.2 mls/hr Q12H IV Last administered on 01:07; Admin Dose 2.4 MLS/HR; Start 04/30/17 at 13:00 Phenylephrine HCl 80 mg/Dextrose 250 ml @ 18.75 mls/ hr TITRATE IV Last administered on 05/04/17 09:57; Admin Dose 31.87 MLS/HR; Start 04/30/17 at 18: 00 Norepinephrine/ Dextrose (Levophed/D5W) 250 ml @ 0.46 mls/hr TITRATE IV Last administered on 05/19/17 08:24; Admin Dose 0.93 MLS/HR; Start 04/30/17 at 18:00 Pantoprazole (Protonix Iv) 40 mg BID@06,18 IV Last administered on 05/20/17 05 :30; Admin Dose 40 MG; Start 05/02/17 at 18:00 Diphenhydramine HCl 25 mg 25 mg Q4H PRN IV ITCHING Last administered on 18:01; Admin Dose 25 MG; Start 05/02/17 at 08:30 Dobutamine HCl/ Dextrose 250 ml @ 4.755 mls/ hr TITRATE IV Last administered on 05/07/17 05:21; Admin Dose 3.804 MLS/HR; Start 05/03/17 at 09:30 Miscellaneous Information 1 ea NOTE XX ; Start 05/03/17 at 13:00 Glucose (Glutose) 15 gm Q15M PRN PO DECREASED GLUCOSE; Start 05/03/17 at 12:45 Glucose (Glutose) 22.5 gm Q15M PRN PO DECREASED GLUCOSE; Start 05/03/17 at 12: 45 Dextrose (D50w Syringe) 25 ml Q15M PRN IV DECREASED GLUCOSE Last administered on 05/03/17 12:48; Admin Dose 25 ML; Start 05/03/17 at 12:45 Dextrose (D50w Syringe) 50 ml Q15M PRN IV DECREASED GLUCOSE; Start 05/03/17 at 12:46 Glucagon (Glucagen) 1 mg Q15M PRN IM DECREASED GLUCOSE; Start 05/03/17 at 12:46 Glucose 15 gm 15 gm Q15M PRN BUCCAL DECREASED GLUCOSE; Start 05/03/17 at 12:46 Midazolam HCl 50 ml @ 1 mls/hr TITRATE IV Last administered on 05/19/17 23:13 ; Admin Dose 1 MLS/HR; Start 05/03/17 at 15:00 Dextrose/Sodium Chloride (D5-NS) 1,000 ml @ 20 mls/hr Q24H IV Last administered on 05/20/17 05:16; Admin Dose 20 MLS/HR; Start 05/03/17 at 16:00 Metoclopramide HCl (Reglan) 5 mg Q6 IV Last administered on 05/20/17 05:30; Admin Dose 5 MG; Start 05/04/17 at 12:00 Nystatin 5 ml 5 ml QID PO Last administered on 05/20/17 09:26; Admin Dose 5 ML ; Start 05/04/17 at 13:00 Fentanyl (Sublimaze) 100 ml @ 5 mls/hr TITRATE IV Last administered on 09:31; Admin Dose 7.5 MLS/HR; Start 05/06/17 at 08:30 Eye Lubricant (Akwa Oint) 1 applic Q4 PRN BOTH EYES dryness Last administered on 05/08/17 08:59; Admin Dose 1 APPLIC; Start 05/07/17 at 13:00 Miscellaneous Information (Pending [facility] Order For Wound Care) This patient otto... PRN PRN XX WOUND CARE; Start 05/07/17 at 13:30 Carvedilol (Coreg) 3.125 mg BID PO Last administered on 05/17/17 09:44; Admin Dose 3.125 MG; Start 05/09/17 at 21:00 Lisinopril (Zestril) 2.5 mg DAILY PO Last administered on 05/17/17 09:44; Admin Dose 2.5 MG; Start 05/10/17 at 09:00 Morphine Sulfate (morphine) 1 mg Q4H PRN IV pain Last administered on 21:15; Admin Dose 1 MG; Start 05/10/17 at 09:00 Scopolamine 1 patch 1 patch Q72H TRANSDERM Last administered on 05/17/17 17:08 ; Admin Dose 1 PATCH; Start 05/11/17 at 16:30 Sodium Chloride (NS) 1,000 ml @ 0 mls/hr Q0M PRN IV TO KEEP SBP ABOVE 90; Start 05/12/17 at 08:24 Amiodarone HCl 400 mg 400 mg DAILY NGT Last administered on 05/20/17 09:26; Admin Dose 400 MG; Start 05/16/17 at 09:00 Albumin Human 100 ml @ 100 mls/hr DAILY IV Last administered on 05/20/17 09: 25; Admin Dose 100 MLS/HR; Start 05/18/17 at 09:00; Stop 05/22/17 at 08:59 Meropenem/Sodium Chloride (Merrem 500mg/50 ml(Pmx)) 50 ml @ 100 mls/hr Q24H IVPB Last administered on 05/19/17 12:37; Admin Dose 100 MLS/HR; Start at 13:00 Miscellaneous Information (*Rx Drug Level Order Reminder*) RANDOM VANCOMYCIN ON ... ONCE ONCE XX ; Start 05/21/17 at 05:00; Stop 05/21/17 at 05:01 KASSI HOLLAND MD May 20, 2017 13:13
[2017-05-20] MEDS: MEROPENEM 500MG/50 ML (PMX) 50 ML IVPB SCH (13:38)
--- NOTE | 2017-05-20 14:59 | CONS ---
Date/Time of Note Date/Time of Note DATE: 05/20/17 TIME: 14:57 Assessment/Plan Assessment/Plan Chief Complaint/Hosp Course IMP: 1.Acute TN-now downtrended cardiac enzymes without signs of ongoing myocardial necrosis. Now s/p LHC with patent SVG to RCA and [place] Ramus/LAD. All other grafts occluded 2.Shock-back on Levo 3.VT-now in SR on amio PO 4.resp failure s/p re-intubation 5.renal failure-on HD 6. Leukocytosis 7. Thrombocytopenia-again worsening 8. Shock liver-improving 9. CHF-systolic acute on chronic likely with EF 20% by intial Echo. Most recent echo 35-40% 10. Anemia- acute worsening, ? etiology RP bleed 11. Hypotension-now back on levo Recc: -Continue ICU monitoring -Continue amio PO -Holding BB/ACEI while on levo -Continue to trend cardiac enzymes -Follow platelet count and would continue to hold asa given anemia requiring transfusion and worsening platelet count requiring transfusion -F/U cx data and continue abx's -HD for volume removal as tolerated -wean vent as tolerated with family deciding upon trach -cxr Problems: Consultation Date/Type/Reason Admit Date/Time Apr 29, 2017 at 19:31 Initial Consult Date 05/02/17 Type of Consultation: Cardiology Reason for Consultation acute [place] Referring Provider: YENNY WINSTON MD Exam/Review of Systems Vital Signs Vitals Vital Signs Date Time Temp Pulse Resp B/P Pulse Ox O2 Delivery O2 Flow Rate FiO2 05/20/17 12:00 72 05/20/17 06:00 19 94/39 100 Mechanical Ventilator 05/20/17 05:40 30 05/20/17 04:00 99.5 Intake and Output 05/19/17 05/19/17 05/20/17 15:00 23:00 07:00 Intake Total 455.10 ml 453.68 ml 555.69 ml Output Total 0 ml 0 ml 0 ml Balance 455.10 ml 453.68 ml 555.69 ml Exam Review of Systems: CONSTITUTIONAL: No fevers, chills. PULMONARY: intubated CARDIOVASCULAR: No obvious chest pain/palpitations GASTROINTESTINAL: No nausea/vomiting. GENITOURINARY: No hematuria/dysuria. MUSCULOSKELETAL: No obvious myagias/arthalgias. PSYCHIATRIC: The patient denies depression. NEUROLOGIC: encephalopathic Constitutional: alert, oriented Psych: no complaints Head: normocephalic ENMT: mucosa pink and moist Neck: jvd (9 cm water), supple Respiratory: diminished breath sounds (at bases/B) Cardiovascular: regular rate and rhythm Gastrointestinal: non-tender, soft Musculoskeletal: muscle tone (normal) Extremities: edema (biolateral) Neurological: other (encephalopathic) Results Result Diagram: 05/20/17 0500 05/20/17 0500 Results 24 hrs Laboratory Tests Test 05/20/17 05:00 White Blood Count 3.7 L Red Blood Count 2.28 L Hemoglobin 7.1 L Hematocrit 22.2 L Mean Corpuscular Volume 97.4 Mean Corpuscular Hemoglobin 31.1 Mean Corpuscular Hemoglobin Concent 32.0 Red Cell Distribution Width 18.8 H Platelet Count 27 *L Mean Platelet Volume 13.0 H Neutrophils % Segmented Neutrophils % (Manual) 67 Band Neutrophils % (Manual) 14 H Lymphocytes % Lymphocytes % (Manual) 10 L Monocytes % Monocytes % (Manual) 2 Eosinophils % Eosinophils % (Manual) 6 Basophils % Basophils % (Manual) 1 Nucleated Red Blood Cells % 0.0 Neutrophils # Neutrophils # (Manual) 2.5 Band Neutrophils # 0.5 Absolute Lymphocytes (Manual) 0.3 L Lymphocytes # Monocytes # Absolute Monocytes (Manual) 0.0 L Eosinophils # Basophils # Basophils # (Manual) 0.0 Nucleated Red Blood Cells # Platelet Estimate DECREASED Giant Platelets 3 H Hypochromasia 1+ Poikilocytosis 1+ Anisocytosis 2+ Macrocytosis 1+ Target Cells 1+ Ovalocytes 1+ Sodium Level 145 H Potassium Level 4.2 Chloride Level 107 Carbon Dioxide Level 29 Anion Gap 13 Blood Urea Nitrogen 70 H Creatinine 5.45 H Glucose Level 80 Calcium Level 7.8 L Total Bilirubin 0.5 Direct Bilirubin 0.00 Indirect Bilirubin 0.5 Aspartate Amino Transf (AST/SGOT) 49 H Alanine Aminotransferase (ALT/SGPT) 61 Alkaline Phosphatase 161 H Total Protein 6.0 L Albumin 2.9 L Globulin 3.10 Albumin/Globulin Ratio 0.93 Medications Medications Current Medications Folic Acid (Folic Acid) 1 mg DAILY PO Last administered on 05/20/17t 09:26; Admin Dose 1 MG; Start 04/30/17 at 09:00 Ondansetron HCl (Zofran Inj) 4 mg Q6H PRN IV NAUSEA AND/OR VOMITING Last administered on 05/03/17 23:24; Admin Dose 4 MG; Start 04/29/17 at 20:00 Nitroglycerin (Nitroglycerin (Sl Tab) 0.4 Mg) 1 tab Q5M PRN SL CHEST PAIN; Start 04/29/17 at 20:00 Acetaminophen (Tylenol Liquid) 650 mg Q6H PRN PO PAIN LEVEL 1-3 OR FEVER Last administered on 05/20/17 10:03; Admin Dose 650 MG; Start 04/29/17 at 20:00 Acetaminophen (Tylenol Tab) 650 mg Q6H PRN PO PAIN LEVEL 1-3 OR FEVER; Start at 20:00 Acetaminophen/ Hydrocodone Bitart ([place] (5/325)) 1 tab Q6H PRN PO PAIN LEVEL 4 -6 Last administered on 05/19/17 15:12; Admin Dose 1 TAB; Start 04/29/17 at 20: 00 Zolpidem Tartrate (Ambien) 5 mg QHS PRN PO INSOMNIA; Start 04/29/17 at 20:00 Docusate Sodium (Colace) 100 mg Q12H PRN PO CONSTIPATION; Start 04/29/17 at 20: 00 Bisacodyl (Dulcolax) 5 mg DAILY PRN PO CONSTIPATION; Start 04/29/17 at 20:00 Aspirin 325 mg 325 mg DAILY PO Last administered on 05/13/17 11:24; Admin Dose 325 MG; Start 04/30/17 at 09:00; Status Future Hold Vasopressin 60 unit/Dextrose 60 ml @ 1.2 mls/hr Q12H IV Last administered on 01:07; Admin Dose 2.4 MLS/HR; Start 04/30/17 at 13:00 Phenylephrine HCl 80 mg/Dextrose 250 ml @ 18.75 mls/ hr TITRATE IV Last administered on 05/04/17 09:57; Admin Dose 31.87 MLS/HR; Start 04/30/17 at 18: 00 Norepinephrine/ Dextrose (Levophed/D5W) 250 ml @ 0.46 mls/hr TITRATE IV Last administered on 05/19/17 08:24; Admin Dose 0.93 MLS/HR; Start 04/30/17 at 18:00 Pantoprazole (Protonix Iv) 40 mg BID@06,18 IV Last administered on 05/20/17 05 :30; Admin Dose 40 MG; Start 05/02/17 at 18:00 Diphenhydramine HCl 25 mg 25 mg Q4H PRN IV ITCHING Last administered on 18:01; Admin Dose 25 MG; Start 05/02/17 at 08:30 Dobutamine HCl/ Dextrose 250 ml @ 4.755 mls/ hr TITRATE IV Last administered on 05/07/17 05:21; Admin Dose 3.804 MLS/HR; Start 05/03/17 at 09:30 Miscellaneous Information 1 ea NOTE XX ; Start 05/03/17 at 13:00 Glucose (Glutose) 15 gm Q15M PRN PO DECREASED GLUCOSE; Start 05/03/17 at 12:45 Glucose (Glutose) 22.5 gm Q15M PRN PO DECREASED GLUCOSE; Start 05/03/17 at 12: 45 Dextrose (D50w Syringe) 25 ml Q15M PRN IV DECREASED GLUCOSE Last administered on 05/03/17 12:48; Admin Dose 25 ML; Start 05/03/17 at 12:45 Dextrose (D50w Syringe) 50 ml Q15M PRN IV DECREASED GLUCOSE; Start 05/03/17 at 12:46 Glucagon (Glucagen) 1 mg Q15M PRN IM DECREASED GLUCOSE; Start 05/03/17 at 12:46 Glucose 15 gm 15 gm Q15M PRN BUCCAL DECREASED GLUCOSE; Start 05/03/17 at 12:46 Midazolam HCl 50 ml @ 1 mls/hr TITRATE IV Last administered on 05/19/17 23:13 ; Admin Dose 1 MLS/HR; Start 05/03/17 at 15:00 Dextrose/Sodium Chloride (D5-NS) 1,000 ml @ 20 mls/hr Q24H IV Last administered on 05/20/17 05:16; Admin Dose 20 MLS/HR; Start 05/03/17 at 16:00 Metoclopramide HCl (Reglan) 5 mg Q6 IV Last administered on 05/20/17 13:37; Admin Dose 5 MG; Start 05/04/17 at 12:00 Nystatin 5 ml 5 ml QID PO Last administered on 05/20/17 13:38; Admin Dose 5 ML ; Start 05/04/17 at 13:00 Fentanyl (Sublimaze) 100 ml @ 5 mls/hr TITRATE IV Last administered on 09:31; Admin Dose 7.5 MLS/HR; Start 05/06/17 at 08:30 Eye Lubricant (Akwa Oint) 1 applic Q4 PRN BOTH EYES dryness Last administered on 05/08/17 08:59; Admin Dose 1 APPLIC; Start 05/07/17 at 13:00 Miscellaneous Information [facility] This patient otto... PRN PRN XX WOUND CARE; Start 05/07/17 at 13:30 Carvedilol (Coreg) 3.125 mg BID PO Last administered on 05/17/17 09:44; Admin Dose 3.125 MG; Start 05/09/17 at 21:00 Lisinopril (Zestril) 2.5 mg DAILY PO Last administered on 05/17/17 09:44; Admin Dose 2.5 MG; Start 05/10/17 at 09:00 Morphine Sulfate (morphine) 1 mg Q4H PRN IV pain Last administered on 21:15; Admin Dose 1 MG; Start 05/10/17 at 09:00 Scopolamine 1 patch 1 patch Q72H TRANSDERM Last administered on 05/17/17 17:08 ; Admin Dose 1 PATCH; Start 05/11/17 at 16:30 Sodium Chloride (NS) 1,000 ml @ 0 mls/hr Q0M PRN IV TO KEEP SBP ABOVE 90; Start 05/12/17 at 08:24 Amiodarone HCl 400 mg 400 mg DAILY NGT Last administered on 05/20/17 09:26; Admin Dose 400 MG; Start 05/16/17 at 09:00 Albumin Human 100 ml @ 100 mls/hr DAILY IV Last administered on 05/20/17 09: 25; Admin Dose 100 MLS/HR; Start 05/18/17 at 09:00; Stop 05/22/17 at 08:59 Meropenem/Sodium Chloride (Merrem 500mg/50 ml(Pmx)) 50 ml @ 100 mls/hr Q24H IVPB Last administered on 05/20/17 13:38; Admin Dose 100 MLS/HR; Start at 13:00 Miscellaneous Information (*Rx Drug Level Order Reminder*) RANDOM VANCOMYCIN ON ... ONCE ONCE XX ; Start 05/21/17 at 05:00; Stop 05/21/17 at 05:01 MARCO KENNEDY May 20, 2017 14:59
--- NOTE | 2017-05-20 15:15 | PN ---
Date/Time of Note Date/Time of Note DATE: 05/20/17 TIME: 15:14 Assessment/Plan VTE Prophylaxis VTE Prophylaxis Intervention: anti-embolic stocking Lines/Catheters IV Catheter Type (from Nrsg): Central Line Central line still needed: Yes Urinary Cath still in place: No Assessment/Plan Chief Complaint/Hosp Course 1. cardiogenic shock, resolving 2. Dysphagia. 3. History of head and neck or laryngeal cancer. 4. 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 5. History of coronary artery disease, status post coronary artery bypass grafting. 6. hypertension, controlled 7. Acute on chronic heart failure with EF 30% 8. Shock liver improving LFTs with improving ischemia 9. Lactic acidosis 10. Respiratory failure on Vent 11. Anemia 12. Right arm DVT but cannot be on anticoagulation due to thrombocytopenia Problems: Assessment/Plan 1. CONTINUE HD 2. FAmily request TRACHeostomy 3. Continue FEEDING 4. WEANING per pulmonary Subjective 24 Hr Interval Summary Subjective hx not possible: pt non-verbal, pt critical Exam/Review of Systems Vital Signs Vitals Vital Signs Date Time Temp Pulse Resp B/P Pulse Ox O2 Delivery O2 Flow Rate FiO2 05/20/17 14:45 72 20 137/59 100 05/20/17 14:00 Mechanical Ventilator 05/20/17 13:55 30 05/20/17 12:00 99.8 Intake and Output 05/19/17 05/19/17 05/20/17 15:00 23:00 07:00 Intake Total 455.10 ml 453.68 ml 555.69 ml Output Total 0 ml 0 ml 0 ml Balance 455.10 ml 453.68 ml 555.69 ml Exam Head: atraumatic, normocephalic Respiratory: diminished breath sounds Cardiovascular: irregular rhythm Gastrointestinal: soft Results Result Diagram: 05/20/17 0500 05/20/17 0500 Results 24 hrs Laboratory Tests Test 05/20/17 05:00 White Blood Count 3.7 L Red Blood Count 2.28 L Hemoglobin 7.1 L Hematocrit 22.2 L Mean Corpuscular Volume 97.4 Mean Corpuscular Hemoglobin 31.1 Mean Corpuscular Hemoglobin Concent 32.0 Red Cell Distribution Width 18.8 H Platelet Count 27 *L Mean Platelet Volume 13.0 H Neutrophils % Segmented Neutrophils % (Manual) 67 Band Neutrophils % (Manual) 14 H Lymphocytes % Lymphocytes % (Manual) 10 L Monocytes % Monocytes % (Manual) 2 Eosinophils % Eosinophils % (Manual) 6 Basophils % Basophils % (Manual) 1 Nucleated Red Blood Cells % 0.0 Neutrophils # Neutrophils # (Manual) 2.5 Band Neutrophils # 0.5 Absolute Lymphocytes (Manual) 0.3 L Lymphocytes # Monocytes # Absolute Monocytes (Manual) 0.0 L Eosinophils # Basophils # Basophils # (Manual) 0.0 Nucleated Red Blood Cells # Platelet Estimate DECREASED Giant Platelets 3 H Hypochromasia 1+ Poikilocytosis 1+ Anisocytosis 2+ Macrocytosis 1+ Target Cells 1+ Ovalocytes 1+ Sodium Level 145 H Potassium Level 4.2 Chloride Level 107 Carbon Dioxide Level 29 Anion Gap 13 Blood Urea Nitrogen 70 H Creatinine 5.45 H Glucose Level 80 Calcium Level 7.8 L Total Bilirubin 0.5 Direct Bilirubin 0.00 Indirect Bilirubin 0.5 Aspartate Amino Transf (AST/SGOT) 49 H Alanine Aminotransferase (ALT/SGPT) 61 Alkaline Phosphatase 161 H Total Protein 6.0 L Albumin 2.9 L Globulin 3.10 Albumin/Globulin Ratio 0.93 Medications Medications Current Medications Folic Acid (Folic Acid) 1 mg DAILY PO Last administered on 05/20/17 09:26; Admin Dose 1 MG; Start 04/30/17 at 09:00 Ondansetron HCl (Zofran Inj) 4 mg Q6H PRN IV NAUSEA AND/OR VOMITING Last administered on 05/03/17 23:24; Admin Dose 4 MG; Start 04/29/17 at 20:00 Nitroglycerin (Nitroglycerin (Sl Tab) 0.4 Mg) 1 tab Q5M PRN SL CHEST PAIN; Start 04/29/17 at 20:00 Acetaminophen (Tylenol Liquid) 650 mg Q6H PRN PO PAIN LEVEL 1-3 OR FEVER Last administered on 05/20/17 10:03; Admin Dose 650 MG; Start 04/29/17 at 20:00 Acetaminophen (Tylenol Tab) 650 mg Q6H PRN PO PAIN LEVEL 1-3 OR FEVER; Start at 20:00 Acetaminophen/ Hydrocodone Bitart ([place] (5/325)) 1 tab Q6H PRN PO PAIN LEVEL 4 -6 Last administered on 05/19/17 15:12; Admin Dose 1 TAB; Start 04/29/17 at 20: 00 Zolpidem Tartrate (Ambien) 5 mg QHS PRN PO INSOMNIA; Start 04/29/17 at 20:00 Docusate Sodium (Colace) 100 mg Q12H PRN PO CONSTIPATION; Start 04/29/17 at 20: 00 Bisacodyl (Dulcolax) 5 mg DAILY PRN PO CONSTIPATION; Start 04/29/17 at 20:00 Aspirin 325 mg 325 mg DAILY PO Last administered on 05/13/17 11:24; Admin Dose 325 MG; Start 04/30/17 at 09:00; Status Future Hold Vasopressin 60 unit/Dextrose 60 ml @ 1.2 mls/hr Q12H IV Last administered on 01:07; Admin Dose 2.4 MLS/HR; Start 04/30/17 at 13:00 Phenylephrine HCl 80 mg/Dextrose 250 ml @ 18.75 mls/ hr TITRATE IV Last administered on 05/04/17 09:57; Admin Dose 31.87 MLS/HR; Start 04/30/17 at 18: 00 Norepinephrine/ Dextrose (Levophed/D5W) 250 ml @ 0.46 mls/hr TITRATE IV Last administered on 05/19/17 08:24; Admin Dose 0.93 MLS/HR; Start 04/30/17 at 18:00 Pantoprazole (Protonix Iv) 40 mg BID@06,18 IV Last administered on 05/20/17 05 :30; Admin Dose 40 MG; Start 05/02/17 at 18:00 Diphenhydramine HCl 25 mg 25 mg Q4H PRN IV ITCHING Last administered on 18:01; Admin Dose 25 MG; Start 05/02/17 at 08:30 Dobutamine HCl/ Dextrose 250 ml @ 4.755 mls/ hr TITRATE IV Last administered on 05/07/17 05:21; Admin Dose 3.804 MLS/HR; Start 05/03/17 at 09:30 Miscellaneous Information 1 ea NOTE XX ; Start 05/03/17 at 13:00 Glucose (Glutose) 15 gm Q15M PRN PO DECREASED GLUCOSE; Start 05/03/17 at 12:45 Glucose (Glutose) 22.5 gm Q15M PRN PO DECREASED GLUCOSE; Start 05/03/17 at 12: 45 Dextrose (D50w Syringe) 25 ml Q15M PRN IV DECREASED GLUCOSE Last administered on 05/03/17 12:48; Admin Dose 25 ML; Start 05/03/17 at 12:45 Dextrose (D50w Syringe) 50 ml Q15M PRN IV DECREASED GLUCOSE; Start 05/03/17 at 12:46 Glucagon (Glucagen) 1 mg Q15M PRN IM DECREASED GLUCOSE; Start 05/03/17 at 12:46 Glucose 15 gm 15 gm Q15M PRN BUCCAL DECREASED GLUCOSE; Start 05/03/17 at 12:46 Midazolam HCl 50 ml @ 1 mls/hr TITRATE IV Last administered on 05/19/17 23:13 ; Admin Dose 1 MLS/HR; Start 05/03/17 at 15:00 Dextrose/Sodium Chloride (D5-NS) 1,000 ml @ 20 mls/hr Q24H IV Last administered on 05/20/17 05:16; Admin Dose 20 MLS/HR; Start 05/03/17 at 16:00 Metoclopramide HCl (Reglan) 5 mg Q6 IV Last administered on 05/20/17 13:37; Admin Dose 5 MG; Start 05/04/17 at 12:00 Nystatin 5 ml 5 ml QID PO Last administered on 05/20/17 13:38; Admin Dose 5 ML ; Start 05/04/17 at 13:00 Fentanyl (Sublimaze) 100 ml @ 5 mls/hr TITRATE IV Last administered on 09:31; Admin Dose 7.5 MLS/HR; Start 05/06/17 at 08:30 Eye Lubricant (Akwa Oint) 1 applic Q4 PRN BOTH EYES dryness Last administered on 05/08/17 08:59; Admin Dose 1 APPLIC; Start 05/07/17 at 13:00 Miscellaneous Information [facility] This patient otto... PRN PRN XX WOUND CARE; Start 05/07/17 at 13:30 Carvedilol (Coreg) 3.125 mg BID PO Last administered on 05/17/17 09:44; Admin Dose 3.125 MG; Start 05/09/17 at 21:00 Lisinopril (Zestril) 2.5 mg DAILY PO Last administered on 05/17/17 09:44; Admin Dose 2.5 MG; Start 05/10/17 at 09:00 Morphine Sulfate (morphine) 1 mg Q4H PRN IV pain Last administered on 21:15; Admin Dose 1 MG; Start 05/10/17 at 09:00 Scopolamine 1 patch 1 patch Q72H TRANSDERM Last administered on 05/17/17 17:08 ; Admin Dose 1 PATCH; Start 05/11/17 at 16:30 Sodium Chloride (NS) 1,000 ml @ 0 mls/hr Q0M PRN IV TO KEEP SBP ABOVE 90; Start 05/12/17 at 08:24 Amiodarone HCl 400 mg 400 mg DAILY NGT Last administered on 05/20/17 09:26; Admin Dose 400 MG; Start 05/16/17 at 09:00 Albumin Human 100 ml @ 100 mls/hr DAILY IV Last administered on 05/20/17 09: 25; Admin Dose 100 MLS/HR; Start 05/18/17 at 09:00; Stop 05/22/17 at 08:59 Meropenem/Sodium Chloride (Merrem 500mg/50 ml(Pmx)) 50 ml @ 100 mls/hr Q24H IVPB Last administered on 05/20/17 13:38; Admin Dose 100 MLS/HR; Start at 13:00 Miscellaneous Information (*Rx Drug Level Order Reminder*) RANDOM VANCOMYCIN ON ... ONCE ONCE XX ; Start 05/21/17 at 05:00; Stop 05/21/17 at 05:01 NADIA STRONG May 20, 2017 15:15
--- NOTE | 2017-05-20 16:39 | PN ---
DATE: 05/20/2017 INFECTIOUS DISEASE PROGRESS NOTE SUBJECTIVE: No events overnight. The patient remains intubated, spiking low-grade fevers and no di arrhea. VITAL SIGNS: Temperature 99.5, pulse 75, respirations 20, blood pressure 94/39, saturation 100% on 30 FIO2. WBC 3.7, H and H 7.1 and 22.2, platelets 27, BUN 70, creatinine 5.45. INDWELLINGS: Right femoral triple-lumen catheter, endotracheal tube, NG tube, left upper extremity AV fistula. DIAGNOSTICS: Chest x-ray from yesterday revealed extensive bilateral airspace disease, right greate r than left. Multiple pulmonary nodules and consolidation in the right lung base. This may reflect pulmonary edema and congestive heart failure or multifocal pneumonia, metastatic disease cannot be excluded. ANTIMICROBIALS: The patient was restarted yesterday on broad spectrum antibiotics and currently on vancomycin and Merrem. PHYSICAL EXAMINATION: GENERAL: This is a fragile, chronically ill-appearing, elderly man who is in no distress. HEENT: Head atraumatic, normocephalic. Sclerae anicteric. Buccal mucosa dry. NECK: Supple. CHEST: Rise symmetrical. Breath sounds diminished to bases. HEART: S1, S2. ABDOMEN: Soft. Bowel tones hypoactive. EXTREMITIES: Without cyanosis with trace edema. ASSESSMENT: 1. Septic shock with multisystem organ failure. 2. Healthcare-associated pneumonia. 3. Respiratory failure. 4. Acute myocardial infarction, status post left heart catheterization on 05/13/2017. 5. End-stage renal disease, hemodialysis dependent. 6. Anemia and thrombocytopenia. 7. History of coronary artery bypass graft. 8. Severe decompensated state. PLAN: The patient remains unchanged. Covered with broad spectrum antibiotics pending repeat cultur es. Continue present care. Await for family decision regarding plan of care. Dictated By: CHACE DENNISON SERVICENOW ADMINISTRATOR for JOSE HUMPHREY/PHYLLIS Conf#: [id number] DID#: [id number]
[2017-05-20] MEDS: MIDAZOLAM (DRIP) 50 mg/50 mL 50 ML IV SCH (17:18)
[2017-05-20] MEDS: SCOPOLAMINE 1.5 MG PATCH TRANSDERM SCH (17:23)
--- NOTE | 2017-05-20 18:02 | CONS ---
Date/Time of Note Date/Time of Note DATE: 05/20/17 TIME: 18:00 Assessment/Plan Assessment/Plan Chief Complaint/Hosp Course #Thromocytopenia -patient received 1 units of platelets yesterday for plat of 27 with slight oozing from oropharynx. platelet count > 60 -ASA on hold given tenuous platelet count -will continue to check daily DIC panel and transfuse 1 unit cryo if fibrinogen is < 150. fibrinogen is currently around 300 -pt was able to tolerate cardiac cath without bleeding issues #Anemia - Hg 7.1 -s/p 2 units of PRBcs today -continue to monitor #Cardiogenic shock with shock liver -management per cardiology -pt is s/p left heart cath -off Levophed #ESRD wit acidosis -continue HD as tolerated. currently blood pressure is very labile #Respiratory failure -patient remains intubated -management per pulmonary Problems: Consultation Date/Type/Reason Admit Date/Time Apr 29, 2017 at 19:31 Initial Consult Date 05/02/17 Type of Consultation: Hematology Reason for Consultation thrombocytopenia Referring Provider: YENNY WINSTON MD 24 HR Interval Summary Free Text/Dictation pt continues to ooze from the mouth. pt was given 2 units of prbcs and 1 units of platelets. was dialyed today Exam/Review of Systems Vital Signs Vitals Vital Signs Date Time Temp Pulse Resp B/P Pulse Ox O2 Delivery O2 Flow Rate FiO2 05/20/17 17:10 75 16 100 30 05/20/17 16:45 120/53 05/20/17 16:00 99.6 Mechanical Ventilator Intake and Output 05/19/17 05/19/17 05/20/17 15:00 23:00 07:00 Intake Total 455.10 ml 453.68 ml 555.69 ml Output Total 0 ml 0 ml 0 ml Balance 455.10 ml 453.68 ml 555.69 ml Exam Constitutional: non-verbal Eyes: nl conjunctiva ENMT: intubated, nl external ears & nose, other (slight oozing from mouth) Respiratory: clear to auscultation Cardiovascular: regular rate and rhythm Gastrointestinal: soft Musculoskeletal: nl extremities to inspection Results Result Diagram: 05/20/17 0500 05/20/17 0500 Results 24 hrs Laboratory Tests Test 05/20/17 05:00 White Blood Count 3.7 L Red Blood Count 2.28 L Hemoglobin 7.1 L Hematocrit 22.2 L Mean Corpuscular Volume 97.4 Mean Corpuscular Hemoglobin 31.1 Mean Corpuscular Hemoglobin Concent 32.0 Red Cell Distribution Width 18.8 H Platelet Count 27 *L Mean Platelet Volume 13.0 H Neutrophils % Segmented Neutrophils % (Manual) 67 Band Neutrophils % (Manual) 14 H Lymphocytes % Lymphocytes % (Manual) 10 L Monocytes % Monocytes % (Manual) 2 Eosinophils % Eosinophils % (Manual) 6 Basophils % Basophils % (Manual) 1 Nucleated Red Blood Cells % 0.0 Neutrophils # Neutrophils # (Manual) 2.5 Band Neutrophils # 0.5 Absolute Lymphocytes (Manual) 0.3 L Lymphocytes # Monocytes # Absolute Monocytes (Manual) 0.0 L Eosinophils # Basophils # Basophils # (Manual) 0.0 Nucleated Red Blood Cells # Platelet Estimate DECREASED Giant Platelets 3 H Hypochromasia 1+ Poikilocytosis 1+ Anisocytosis 2+ Macrocytosis 1+ Target Cells 1+ Ovalocytes 1+ Sodium Level 145 H Potassium Level 4.2 Chloride Level 107 Carbon Dioxide Level 29 Anion Gap 13 Blood Urea Nitrogen 70 H Creatinine 5.45 H Glucose Level 80 Calcium Level 7.8 L Total Bilirubin 0.5 Direct Bilirubin 0.00 Indirect Bilirubin 0.5 Aspartate Amino Transf (AST/SGOT) 49 H Alanine Aminotransferase (ALT/SGPT) 61 Alkaline Phosphatase 161 H Total Protein 6.0 L Albumin 2.9 L Globulin 3.10 Albumin/Globulin Ratio 0.93 Medications Medications Current Medications Folic Acid (Folic Acid) 1 mg DAILY PO Last administered on 05/20/17 09:26; Admin Dose 1 MG; Start 04/30/17 at 09:00 Ondansetron HCl (Zofran Inj) 4 mg Q6H PRN IV NAUSEA AND/OR VOMITING Last administered on 05/03/17 23:24; Admin Dose 4 MG; Start 04/29/17 at 20:00 Nitroglycerin (Nitroglycerin (Sl Tab) 0.4 Mg) 1 tab Q5M PRN SL CHEST PAIN; Start 04/29/17 at 20:00 Acetaminophen (Tylenol Liquid) 650 mg Q6H PRN PO PAIN LEVEL 1-3 OR FEVER Last administered on 05/20/17 10:03; Admin Dose 650 MG; Start 04/29/17 at 20:00 Acetaminophen (Tylenol Tab) 650 mg Q6H PRN PO PAIN LEVEL 1-3 OR FEVER; Start at 20:00 Acetaminophen/ Hydrocodone Bitart ([place] (5/325)) 1 tab Q6H PRN PO PAIN LEVEL 4 -6 Last administered on 05/19/17 15:12; Admin Dose 1 TAB; Start 04/29/17 at 20: 00 Zolpidem Tartrate (Ambien) 5 mg QHS PRN PO INSOMNIA; Start 04/29/17 at 20:00 Docusate Sodium (Colace) 100 mg Q12H PRN PO CONSTIPATION; Start 04/29/17 at 20: 00 Bisacodyl (Dulcolax) 5 mg DAILY PRN PO CONSTIPATION; Start 04/29/17 at 20:00 Aspirin 325 mg 325 mg DAILY PO Last administered on 05/13/17 11:24; Admin Dose 325 MG; Start 04/30/17 at 09:00; Status Future Hold Vasopressin 60 unit/Dextrose 60 ml @ 1.2 mls/hr Q12H IV Last administered on 01:07; Admin Dose 2.4 MLS/HR; Start 04/30/17 at 13:00 Phenylephrine HCl 80 mg/Dextrose 250 ml @ 18.75 mls/ hr TITRATE IV Last administered on 05/04/17 09:57; Admin Dose 31.87 MLS/HR; Start 04/30/17 at 18: 00 Norepinephrine/ Dextrose (Levophed/D5W) 250 ml @ 0.46 mls/hr TITRATE IV Last administered on 05/19/17 08:24; Admin Dose 0.93 MLS/HR; Start 04/30/17 at 18:00 Pantoprazole (Protonix Iv) 40 mg BID@06,18 IV Last administered on 05/20/17 17 :23; Admin Dose 40 MG; Start 05/02/17 at 18:00 Diphenhydramine HCl 25 mg 25 mg Q4H PRN IV ITCHING Last administered on 18:01; Admin Dose 25 MG; Start 05/02/17 at 08:30 Dobutamine HCl/ Dextrose 250 ml @ 4.755 mls/ hr TITRATE IV Last administered on 05/07/17 05:21; Admin Dose 3.804 MLS/HR; Start 05/03/17 at 09:30 Miscellaneous Information 1 ea NOTE XX ; Start 05/03/17 at 13:00 Glucose (Glutose) 15 gm Q15M PRN PO DECREASED GLUCOSE; Start 05/03/17 at 12:45 Glucose (Glutose) 22.5 gm Q15M PRN PO DECREASED GLUCOSE; Start 05/03/17 at 12: 45 Dextrose (D50w Syringe) 25 ml Q15M PRN IV DECREASED GLUCOSE Last administered on 05/03/17 12:48; Admin Dose 25 ML; Start 05/03/17 at 12:45 Dextrose (D50w Syringe) 50 ml Q15M PRN IV DECREASED GLUCOSE; Start 05/03/17 at 12:46 Glucagon (Glucagen) 1 mg Q15M PRN IM DECREASED GLUCOSE; Start 05/03/17 at 12:46 Glucose 15 gm 15 gm Q15M PRN BUCCAL DECREASED GLUCOSE; Start 05/03/17 at 12:46 Midazolam HCl 50 ml @ 1 mls/hr TITRATE IV Last administered on 05/20/17 17:18 ; Admin Dose 2 MLS/HR; Start 05/03/17 at 15:00 Dextrose/Sodium Chloride (D5-NS) 1,000 ml @ 20 mls/hr Q24H IV Last administered on 05/20/17 05:16; Admin Dose 20 MLS/HR; Start 05/03/17 at 16:00 Metoclopramide HCl (Reglan) 5 mg Q6 IV Last administered on 05/20/17 17:23; Admin Dose 5 MG; Start 05/04/17 at 12:00 Nystatin 5 ml 5 ml QID PO Last administered on 05/20/17 17:23; Admin Dose 5 ML ; Start 05/04/17 at 13:00 Fentanyl (Sublimaze) 100 ml @ 5 mls/hr TITRATE IV Last administered on 09:31; Admin Dose 7.5 MLS/HR; Start 05/06/17 at 08:30 Eye Lubricant (Akwa Oint) 1 applic Q4 PRN BOTH EYES dryness Last administered on 05/08/17 08:59; Admin Dose 1 APPLIC; Start 05/07/17 at 13:00 Miscellaneous Information (Pending [facility] Order For Wound Care) This patient otto... PRN PRN XX WOUND CARE; Start 05/07/17 at 13:30 Carvedilol (Coreg) 3.125 mg BID PO Last administered on 05/17/17 09:44; Admin Dose 3.125 MG; Start 05/09/17 at 21:00 Lisinopril (Zestril) 2.5 mg DAILY PO Last administered on 05/17/17 09:44; Admin Dose 2.5 MG; Start 05/10/17 at 09:00 Morphine Sulfate (morphine) 1 mg Q4H PRN IV pain Last administered on 21:15; Admin Dose 1 MG; Start 05/10/17 at 09:00 Scopolamine 1 patch 1 patch Q72H TRANSDERM Last administered on 05/20/17 17:23 ; Admin Dose 1 PATCH; Start 05/11/17 at 16:30 Sodium Chloride (NS) 1,000 ml @ 0 mls/hr Q0M PRN IV TO KEEP SBP ABOVE 90; Start 05/12/17 at 08:24 Amiodarone HCl 400 mg 400 mg DAILY NGT Last administered on 05/20/17 09:26; Admin Dose 400 MG; Start 05/16/17 at 09:00 Albumin Human 100 ml @ 100 mls/hr DAILY IV Last administered on 05/20/17 09: 25; Admin Dose 100 MLS/HR; Start 05/18/17 at 09:00; Stop 05/22/17 at 08:59 Meropenem/Sodium Chloride (Merrem 500mg/50 ml(Pmx)) 50 ml @ 100 mls/hr Q24H IVPB Last administered on 05/20/17 13:38; Admin Dose 100 MLS/HR; Start at 13:00 Miscellaneous Information (*Rx Drug Level Order Reminder*) RANDOM VANCOMYCIN ON ... ONCE ONCE XX ; Start 05/21/17 at 05:00; Stop 05/21/17 at 05:01 JEFF HANSON M.D. May 20, 2017 18:02
[2017-05-20 18:52] LABS: PLATELET COUNT 62 10^3/UL (140-415)
[2017-05-20 19:15] LABS: FIBRIN SPLIT PRODUCT >10 and <40 ug/ml (<10)
[2017-05-20 19:39] LABS: INR 1.19; PROTIME 15.2 Sec (12.2-14.2); PT RATIO 1.2
[2017-05-20 19:41] LABS: PARTIAL THROMBOPLASTIN TIME 47.3 Sec (25.0-35.0); THROMBIN TIME 15.8 SEC (13.8-19.1)
[2017-05-20 20:05] LABS: D-DIMER 8762.37 ng/ml (<460)
[2017-05-21] VITALS (67 sets, daily range): BP systolic 85–156; BP diastolic 40–89; PULSE 66–81; RESP 6–27
[2017-05-21] MEDS: ALBUTEROL 18 GM INHALER INH SCH ×4 (01:28→19:07)
[2017-05-21] MEDS: IPRATROPIUM (HFA) 12.9 GM INHALER INH SCH ×4 (01:28→19:07)
[2017-05-21] MEDS: FENTAnyl (DRIP) 1000 mcg/100mL 100 ML IV SCH ×2 (03:20→19:33)
[2017-05-21 05:14] LABS: ABNORMAL IP MESSAGE 1; EOSINOPHILS # 0.3 10^3/ul (0.0-0.5); EOSINOPHILS % 7.2 % (0.0-7.0); HEMATOCRIT 29.4 % (42.0-52.0); HEMOGLOBIN 9.6 g/dl (14.0-18.0); LYMPHOCYTES # 0.5 10^3/ul (0.8-2.9); LYMPHOCYTES % 11.9 % (15.0-51.0); MEAN CORPUSCULAR HGB CONC 32.7 g/dl (32.0-37.0); MEAN CORPUSCULAR VOLUME 91.9 fl (82.0-101.0); MEAN PLATELET VOLUME 12.2 fl (7.4-10.4); MONOCYTE # 0.5 10^3/ul (0.3-0.9); MONOCYTES % 12.4 % (0.0-11.0); NEUTROPHIL # 2.8 10^3/ul (1.6-7.5); PLATELET COUNT 72 10^3/UL (140-415); POSITIVE DIFF @See below; RED CELL DISTRIBUTION WIDTH 19.6 % (11.5-14.5)
[2017-05-21] MEDS: METOCLOPRAMIDE 10 MG INJ IV SCH ×4 (05:31→23:20)
[2017-05-21] MEDS: PANTOPRAZOLE 40 MG INJ IV SCH ×2 (05:31→17:14)
[2017-05-21 05:40] LABS: ALBUMIN 3.3 g/dl (3.3-4.9); ALBUMIN/GLOBULIN RATIO 1.03; BILIRUBIN,DIRECT 0.3 mg/dl (0.00-0.20); BILIRUBIN,INDIRECT 0.8 mg/dl (0-1.1); BILIRUBIN,TOTAL 1.1 mg/dl (0.2-1.3); CALCIUM 9.1 mg/dl (8.4-10.2); CREATININE 4.14 mg/dl (0.61-1.24); POTASSIUM 4.2 mmol/L (3.5-5.1); TOTAL PROTEIN 6.5 g/dl (6.1-8.1)
[2017-05-21] MEDS: FOLIC ACID 1 MG TAB PO SCH (08:24)
[2017-05-21] MEDS: AMIODARONE 200 MG TAB NGT SCH (08:24)
[2017-05-21] MEDS: NYSTATIN SUSP 5 ML CUP PO SCH ×4 (08:24→21:27)
[2017-05-21] MEDS: BALSAM PERU/CASTOR OIL 60 GM TUBE TOP SCH ×2 (08:25→21:28)
[2017-05-21] MEDS: LISINOPRIL 5 MG TAB PO SCH (08:25)
[2017-05-21] MEDS: ALBUMIN HUMAN 25% 100 ML IV SCH (08:25)
[2017-05-21] MEDS ORDERED: VANCOMYCIN 1 GM in NS 250 ML IVPB SCH (11:00)
[2017-05-21] MEDS: VASOPRESSIN 60 UNIT in DEXTROSE 5% 57 ML IV SCH (11:09)
--- NOTE | 2017-05-21 12:23 | CONS ---
Date/Time of Note Date/Time of Note DATE: 05/21/17 TIME: 12:21 Consult Date/Type/Reason Admit Date/Time Apr 29, 2017 at 19:31 Type of Consultation: Pulm/CCM Ordering Provider: YENNY WINSTON MD Subjective No events. On vent. On fentanyl and versed. Objective Vital Signs Date Time Temp Pulse Resp B/P Pulse Ox O2 Delivery O2 Flow Rate FiO2 05/21/17 09:15 68 16 88/42 100 05/21/17 09:00 Mechanical Ventilator 05/21/17 08:00 30 05/21/17 08:00 99.7 Intake and Output 05/20/17 05/20/17 05/21/17 15:00 23:00 07:00 Intake Total 1511.32 ml 612.86 ml 196 ml Output Total 3000 ml 0 ml 0 ml Balance -1488.68 ml 612.86 ml 196 ml Exam HEENT: Pupils equal, round, and reactive to light. CARDIAC: S1, S2, 1/6 systolic ejection murmur CHEST: Diminished air entry bilaterally. ABDOMEN: Mildly distended. Bowel sounds present no guarding or rebound EXTREMITIES: No cyanosis, clubbing edema +1 Results/Medications Result Diagram: 05/21/17 0410 05/21/17 0410 Results 24 hrs Laboratory Tests Test 05/20/17 18:29 05/21/17 04:10 05/21/17 05:27 Platelet Count 62 #L 72 #L Prothrombin Time 15.2 H Prothrombin Time Ratio 1.2 INR International Normalized Ratio 1.19 Activated Partial Thromboplast Time 47.3 H Thrombin Time 15.8 Fibrinogen 338.0 # Plasma Fibrin Degradation Products >10 and <40 H D-Dimer 8762.37 H D-Dimer Comment White Blood Count 4.0 L Red Blood Count 3.20 #L Hemoglobin 9.6 #L Hematocrit 29.4 #L Mean Corpuscular Volume 91.9 Mean Corpuscular Hemoglobin 30.0 Mean Corpuscular Hemoglobin Concent 32.7 Red Cell Distribution Width 19.6 H Mean Platelet Volume 12.2 H Neutrophils % 68.0 Lymphocytes % 11.9 L Monocytes % 12.4 H Eosinophils % 7.2 H Basophils % 0.0 Nucleated Red Blood Cells % 0.0 Neutrophils # 2.8 Lymphocytes # 0.5 L Monocytes # 0.5 Eosinophils # 0.3 Basophils # 0.0 Nucleated Red Blood Cells # 0.0 Sodium Level 144 Potassium Level 4.2 Chloride Level 105 Carbon Dioxide Level 31 Anion Gap 12 Blood Urea Nitrogen 49 #H Creatinine 4.14 #H Glucose Level 71 Calcium Level 9.1 Total Bilirubin 1.1 Direct Bilirubin 0.30 #H Indirect Bilirubin 0.8 Aspartate Amino Transf (AST/SGOT) 47 H Alanine Aminotransferase (ALT/SGPT) 50 Alkaline Phosphatase 122 H Total Protein 6.5 Albumin 3.3 Globulin 3.20 Albumin/Globulin Ratio 1.03 Random Vancomycin Level 15.5 Lab Scanned Report BLOOD TRANSFUSION Medications Current Medications Folic Acid (Folic Acid) 1 mg DAILY PO Last administered on 05/21/17 08:24; Admin Dose 1 MG; Start 04/30/17 at 09:00 Ondansetron HCl (Zofran Inj) 4 mg Q6H PRN IV NAUSEA AND/OR VOMITING Last administered on 05/03/17 23:24; Admin Dose 4 MG; Start 04/29/17 at 20:00 Nitroglycerin (Nitroglycerin (Sl Tab) 0.4 Mg) 1 tab Q5M PRN SL CHEST PAIN; Start 04/29/17 at 20:00 Acetaminophen (Tylenol Liquid) 650 mg Q6H PRN PO PAIN LEVEL 1-3 OR FEVER Last administered on 05/20/17 10:03; Admin Dose 650 MG; Start 04/29/17 at 20:00 Acetaminophen (Tylenol Tab) 650 mg Q6H PRN PO PAIN LEVEL 1-3 OR FEVER; Start at 20:00 Acetaminophen/ Hydrocodone Bitart ([place] (5/325)) 1 tab Q6H PRN PO PAIN LEVEL 4 -6 Last administered on 05/19/17 15:12; Admin Dose 1 TAB; Start 04/29/17 at 20: 00 Zolpidem Tartrate (Ambien) 5 mg QHS PRN PO INSOMNIA; Start 04/29/17 at 20:00 Docusate Sodium (Colace) 100 mg Q12H PRN PO CONSTIPATION; Start 04/29/17 at 20: 00 Bisacodyl (Dulcolax) 5 mg DAILY PRN PO CONSTIPATION; Start 04/29/17 at 20:00 Aspirin 325 mg 325 mg DAILY PO Last administered on 05/13/17 11:24; Admin Dose 325 MG; Start 04/30/17 at 09:00; Status Future Hold Vasopressin 60 unit/Dextrose 60 ml @ 1.2 mls/hr Q12H IV Last administered on 01:07; Admin Dose 2.4 MLS/HR; Start 04/30/17 at 13:00 Phenylephrine HCl 80 mg/Dextrose 250 ml @ 18.75 mls/ hr TITRATE IV Last administered on 05/04/17 09:57; Admin Dose 31.87 MLS/HR; Start 04/30/17 at 18: 00 Norepinephrine/ Dextrose (Levophed/D5W) 250 ml @ 0.46 mls/hr TITRATE IV Last administered on 05/19/17 08:24; Admin Dose 0.93 MLS/HR; Start 04/30/17 at 18:00 Pantoprazole (Protonix Iv) 40 mg BID@06,18 IV Last administered on 05/21/17 05 :31; Admin Dose 40 MG; Start 05/02/17 at 18:00 Diphenhydramine HCl 25 mg 25 mg Q4H PRN IV ITCHING Last administered on 18:01; Admin Dose 25 MG; Start 05/02/17 at 08:30 Dobutamine HCl/ Dextrose 250 ml @ 4.755 mls/ hr TITRATE IV Last administered on 05/07/17 05:21; Admin Dose 3.804 MLS/HR; Start 05/03/17 at 09:30 Miscellaneous Information 1 ea NOTE XX ; Start 05/03/17 at 13:00 Glucose (Glutose) 15 gm Q15M PRN PO DECREASED GLUCOSE; Start 05/03/17 at 12:45 Glucose (Glutose) 22.5 gm Q15M PRN PO DECREASED GLUCOSE; Start 05/03/17 at 12: 45 Dextrose (D50w Syringe) 25 ml Q15M PRN IV DECREASED GLUCOSE Last administered on 05/03/17 12:48; Admin Dose 25 ML; Start 05/03/17 at 12:45 Dextrose (D50w Syringe) 50 ml Q15M PRN IV DECREASED GLUCOSE; Start 05/03/17 at 12:46 Glucagon (Glucagen) 1 mg Q15M PRN IM DECREASED GLUCOSE; Start 05/03/17 at 12:46 Glucose 15 gm 15 gm Q15M PRN BUCCAL DECREASED GLUCOSE; Start 05/03/17 at 12:46 Midazolam HCl 50 ml @ 1 mls/hr TITRATE IV Last administered on 05/20/17 17:18 ; Admin Dose 2 MLS/HR; Start 05/03/17 at 15:00 Dextrose/Sodium Chloride (D5-NS) 1,000 ml @ 20 mls/hr Q24H IV Last administered on 05/20/17 05:16; Admin Dose 20 MLS/HR; Start 05/03/17 at 16:00 Metoclopramide HCl (Reglan) 5 mg Q6 IV Last administered on 05/21/17 11:39; Admin Dose 5 MG; Start 05/04/17 at 12:00 Nystatin 5 ml 5 ml QID PO Last administered on 05/21/17 08:24; Admin Dose 5 ML ; Start 05/04/17 at 13:00 Fentanyl (Sublimaze) 100 ml @ 5 mls/hr TITRATE IV Last administered on 03:20; Admin Dose 6 MLS/HR; Start 05/06/17 at 08:30 Eye Lubricant (Akwa Oint) 1 applic Q4 PRN BOTH EYES dryness Last administered on 05/08/17 08:59; Admin Dose 1 APPLIC; Start 05/07/17 at 13:00 Miscellaneous Information (Pending [facility] Order For Wound Care) This patient otto... PRN PRN XX WOUND CARE; Start 05/07/17 at 13:30 Carvedilol (Coreg) 3.125 mg BID PO Last administered on 05/17/17 09:44; Admin Dose 3.125 MG; Start 05/09/17 at 21:00 Lisinopril (Zestril) 2.5 mg DAILY PO Last administered on 05/17/17 09:44; Admin Dose 2.5 MG; Start 05/10/17 at 09:00 Morphine Sulfate (morphine) 1 mg Q4H PRN IV pain Last administered on 21:15; Admin Dose 1 MG; Start 05/10/17 at 09:00 Scopolamine 1 patch 1 patch Q72H TRANSDERM Last administered on 05/20/17 17:23 ; Admin Dose 1 PATCH; Start 05/11/17 at 16:30 Sodium Chloride (NS) 1,000 ml @ 0 mls/hr Q0M PRN IV TO KEEP SBP ABOVE 90; Start 05/12/17 at 08:24 Amiodarone HCl 400 mg 400 mg DAILY NGT Last administered on 05/21/17 08:24; Admin Dose 400 MG; Start 05/16/17 at 09:00 Albumin Human 100 ml @ 100 mls/hr DAILY IV Last administered on 05/21/17 08: 25; Admin Dose 100 MLS/HR; Start 05/18/17 at 09:00; Stop 05/22/17 at 08:59 Meropenem/Sodium Chloride 50 ml @ 100 mls/hr Q24H IVPB Last administered on 13:38; Admin Dose 100 MLS/HR; Start 05/19/17 at 13:00 Vancomycin HCl (Vancocin) 250 ml @ 125 mls/hr 11 IVPB Last administered on 11:39; Admin Dose 125 MLS/HR; Start 05/21/17 at 11:00; Stop 05/21/17 at 20:00 Assessment/Plan Chief Complaint/Hosp Course Briefly, this is an 87 yo with HTN, CAD, CABG 1989 4V -0 per family presenting with V.tach/fib arrest likely due to a massive TN with associated refractory cardiogenic shock. Problems: Additional Assessment/Plan IMP: 1. Hypoxemic respiratory failure on mechanical ventilation, persistent respiratory failure patient unable to wean from mechanical ventilation despite multiple weaning trials. Family considering plan of care. Tracheostomy not consistent with patient's wishes. 2. Multiorgan failure with status post septic shock with persistent thrombocytopenia. 3. Recent upper GI bleed. 4. Dysphagia nasogastric tube in place 5. 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 Continue broad-spectrum antibiotics, 2. Continue hemodialysis as tolerated 3. Continue mechanical ventilation 4. TF/Free H20 5. Fentanyl/Versed 6. Family considering transition to comfort care with terminal extubation on Tuesday Case d/w RN and family 35 min cc time RY WONG MD May 21, 2017 12:23
--- NOTE | 2017-05-21 12:54 | PN ---
Date/Time of Note Date/Time of Note DATE: 05/21/17 TIME: 12:54 Assessment/Plan Lines/Catheters IV Catheter Type (from Nrsg): Central Line Campos in Place (from Nrsg): No Assessment/Plan Chief Complaint/Hosp Course IMPRESSION: Respiratory failure. RECOMMENDATIONS: We will proceed with placement of a tracheostomy when the family is agreeable. Problems: Subjective 24 Hr Interval Summary Constitutional: improved Pain Control: mild Exam/Review of Systems Vital Signs Vitals Vital Signs Date Time Temp Pulse Resp B/P Pulse Ox O2 Delivery O2 Flow Rate FiO2 05/21/17 09:15 68 16 88/42 100 05/21/17 09:00 Mechanical Ventilator 05/21/17 08:00 30 05/21/17 08:00 99.7 Intake and Output 05/20/17 05/20/17 05/21/17 15:00 23:00 07:00 Intake Total 1511.32 ml 612.86 ml 196 ml Output Total 3000 ml 0 ml 0 ml Balance -1488.68 ml 612.86 ml 196 ml Exam Eyes: No EOMI, No PERRL, No fundi, disc, No icteric, No nl conjunctiva, No nl lids, No nl sclera, No other Neck: non-tender, supple Respiratory: clear to auscultation, normal air movement Cardiovascular: nl pulses, regular rate and rhythm Gastrointestinal: nl liver, spleen, non-tender, soft Results Result Diagram: 05/21/17 0410 05/21/17 0410 KATHARINA ALLISON MD May 21, 2017 12:54
[2017-05-21] MEDS: MEROPENEM 500MG/50 ML (PMX) 50 ML IVPB SCH (13:52)
--- NOTE | 2017-05-21 15:17 | PN ---
Date/Time of Note Date/Time of Note DATE: 05/21/17 TIME: 15:15 Assessment/Plan VTE Prophylaxis VTE Prophylaxis Intervention: anti-embolic stocking Lines/Catheters IV Catheter Type (from Nrsg): Central Line Central line still needed: Yes Urinary Cath still in place: No Assessment/Plan Chief Complaint/Hosp Course 1. cardiogenic shock, resolving 2. Dysphagia. 3. History of head and neck or laryngeal cancer. 4. 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 5. History of coronary artery disease, status post coronary artery bypass grafting. 6. hypertension, controlled 7. Acute on chronic heart failure with EF 30% 8. Shock liver improving LFTs with improving ischemia 9. Lactic acidosis 10. Respiratory failure on Vent 11. Anemia 12. Right arm DVT but cannot be on anticoagulation due to thrombocytopenia Problems: Assessment/Plan 1. Continue critical care. 2. Pt cannot be weaned 3. Continue HD 4. Consider transitional care: pt daughter decided not to follow with tracheostomy Subjective 24 Hr Interval Summary Subjective hx not possible: pt non-verbal, pt critical Exam/Review of Systems Vital Signs Vitals Vital Signs Date Time Temp Pulse Resp B/P Pulse Ox O2 Delivery O2 Flow Rate FiO2 05/21/17 13:30 80 25 148/70 99 05/21/17 13:00 Mechanical Ventilator 05/21/17 12:00 99.1 05/21/17 11:30 30 Intake and Output 05/20/17 05/20/17 05/21/17 15:00 23:00 07:00 Intake Total 1511.32 ml 612.86 ml 196 ml Output Total 3000 ml 0 ml 0 ml Balance -1488.68 ml 612.86 ml 196 ml Exam Head: atraumatic, normocephalic Neck: supple Respiratory: diminished breath sounds Cardiovascular: irregular rhythm Gastrointestinal: soft Genitourinary - Male: nl scrotum Musculoskeletal: muscle weakness Results Result Diagram: 05/21/1740905/21/17409 Results 24 hrs Laboratory Tests Test 05/20/17 18:29 05/21/17 04:10 05/21/17 05:27 Platelet Count 62 #L 72 #L Prothrombin Time 15.2 H Prothrombin Time Ratio 1.2 INR International Normalized Ratio 1.19 Activated Partial Thromboplast Time 47.3 H Thrombin Time 15.8 Fibrinogen 338.0 # Plasma Fibrin Degradation Products >10 and <40 H D-Dimer 8762.37 H D-Dimer Comment White Blood Count 4.0 L Red Blood Count 3.20 #L Hemoglobin 9.6 #L Hematocrit 29.4 #L Mean Corpuscular Volume 91.9 Mean Corpuscular Hemoglobin 30.0 Mean Corpuscular Hemoglobin Concent 32.7 Red Cell Distribution Width 19.6 H Mean Platelet Volume 12.2 H Neutrophils % 68.0 Lymphocytes % 11.9 L Monocytes % 12.4 H Eosinophils % 7.2 H Basophils % 0.0 Nucleated Red Blood Cells % 0.0 Neutrophils # 2.8 Lymphocytes # 0.5 L Monocytes # 0.5 Eosinophils # 0.3 Basophils # 0.0 Nucleated Red Blood Cells # 0.0 Sodium Level 144 Potassium Level 4.2 Chloride Level 105 Carbon Dioxide Level 31 Anion Gap 12 Blood Urea Nitrogen 49 #H Creatinine 4.14 #H Glucose Level 71 Calcium Level 9.1 Total Bilirubin 1.1 Direct Bilirubin 0.30 #H Indirect Bilirubin 0.8 Aspartate Amino Transf (AST/SGOT) 47 H Alanine Aminotransferase (ALT/SGPT) 50 Alkaline Phosphatase 122 H Total Protein 6.5 Albumin 3.3 Globulin 3.20 Albumin/Globulin Ratio 1.03 Random Vancomycin Level 15.5 Lab Scanned Report BLOOD TRANSFUSION Medications Medications Current Medications Folic Acid (Folic Acid) 1 mg DAILY PO Last administered on 05/21/17 08:24; Admin Dose 1 MG; Start 04/30/17 at 09:00 Ondansetron HCl (Zofran Inj) 4 mg Q6H PRN IV NAUSEA AND/OR VOMITING Last administered on 05/03/17 23:24; Admin Dose 4 MG; Start 04/29/17 at 20:00 Nitroglycerin (Nitroglycerin (Sl Tab) 0.4 Mg) 1 tab Q5M PRN SL CHEST PAIN; Start 04/29/17 at 20:00 Acetaminophen (Tylenol Liquid) 650 mg Q6H PRN PO PAIN LEVEL 1-3 OR FEVER Last administered on 05/20/17 10:03; Admin Dose 650 MG; Start 04/29/17 at 20:00 Acetaminophen (Tylenol Tab) 650 mg Q6H PRN PO PAIN LEVEL 1-3 OR FEVER; Start at 20:00 Acetaminophen/ Hydrocodone Bitart ([place] (5/325)) 1 tab Q6H PRN PO PAIN LEVEL 4 -6 Last administered on 05/19/17 15:12; Admin Dose 1 TAB; Start 04/29/17 at 20: 00 Zolpidem Tartrate (Ambien) 5 mg QHS PRN PO INSOMNIA; Start 04/29/17 at 20:00 Docusate Sodium (Colace) 100 mg Q12H PRN PO CONSTIPATION; Start 04/29/17 at 20: 00 Bisacodyl (Dulcolax) 5 mg DAILY PRN PO CONSTIPATION; Start 04/29/17 at 20:00 Aspirin 325 mg 325 mg DAILY PO Last administered on 05/13/17 11:24; Admin Dose 325 MG; Start 04/30/17 at 09:00; Status Future Hold Vasopressin 60 unit/Dextrose 60 ml @ 1.2 mls/hr Q12H IV Last administered on 01:07; Admin Dose 2.4 MLS/HR; Start 04/30/17 at 13:00 Phenylephrine HCl 80 mg/Dextrose 250 ml @ 18.75 mls/ hr TITRATE IV Last administered on 05/04/17 09:57; Admin Dose 31.87 MLS/HR; Start 04/30/17 at 18: 00 Norepinephrine/ Dextrose (Levophed/D5W) 250 ml @ 0.46 mls/hr TITRATE IV Last administered on 05/19/17 08:24; Admin Dose 0.93 MLS/HR; Start 04/30/17 at 18:00 Pantoprazole (Protonix Iv) 40 mg BID@06,18 IV Last administered on 05/21/17 05 :31; Admin Dose 40 MG; Start 05/02/17 at 18:00 Diphenhydramine HCl 25 mg 25 mg Q4H PRN IV ITCHING Last administered on 18:01; Admin Dose 25 MG; Start 05/02/17 at 08:30 Dobutamine HCl/ Dextrose 250 ml @ 4.755 mls/ hr TITRATE IV Last administered on 05/07/17 05:21; Admin Dose 3.804 MLS/HR; Start 05/03/17 at 09:30 Miscellaneous Information 1 ea NOTE XX ; Start 05/03/17 at 13:00 Glucose (Glutose) 15 gm Q15M PRN PO DECREASED GLUCOSE; Start 05/03/17 at 12:45 Glucose (Glutose) 22.5 gm Q15M PRN PO DECREASED GLUCOSE; Start 05/03/17 at 12: 45 Dextrose (D50w Syringe) 25 ml Q15M PRN IV DECREASED GLUCOSE Last administered on 05/03/17 12:48; Admin Dose 25 ML; Start 05/03/17 at 12:45 Dextrose (D50w Syringe) 50 ml Q15M PRN IV DECREASED GLUCOSE; Start 05/03/17 at 12:46 Glucagon (Glucagen) 1 mg Q15M PRN IM DECREASED GLUCOSE; Start 05/03/17 at 12:46 Glucose 15 gm 15 gm Q15M PRN BUCCAL DECREASED GLUCOSE; Start 05/03/17 at 12:46 Midazolam HCl 50 ml @ 1 mls/hr TITRATE IV Last administered on 05/20/17 17:18 ; Admin Dose 2 MLS/HR; Start 05/03/17 at 15:00 Dextrose/Sodium Chloride (D5-NS) 1,000 ml @ 20 mls/hr Q24H IV Last administered on 05/20/17 05:16; Admin Dose 20 MLS/HR; Start 05/03/17 at 16:00 Metoclopramide HCl (Reglan) 5 mg Q6 IV Last administered on 05/21/17 11:39; Admin Dose 5 MG; Start 05/04/17 at 12:00 Nystatin 5 ml 5 ml QID PO Last administered on 05/21/17 13:52; Admin Dose 5 ML ; Start 05/04/17 at 13:00 Fentanyl (Sublimaze) 100 ml @ 5 mls/hr TITRATE IV Last administered on 03:20; Admin Dose 6 MLS/HR; Start 05/06/17 at 08:30 Eye Lubricant (Akwa Oint) 1 applic Q4 PRN BOTH EYES dryness Last administered on 05/08/17 08:59; Admin Dose 1 APPLIC; Start 05/07/17 at 13:00 [facility] This patient otto... PRN PRN XX WOUND CARE; Start 05/07/17 at 13:30 Carvedilol (Coreg) 3.125 mg BID PO Last administered on 05/17/17 09:44; Admin Dose 3.125 MG; Start 05/09/17 at 21:00 Lisinopril (Zestril) 2.5 mg DAILY PO Last administered on 05/17/17 09:44; Admin Dose 2.5 MG; Start 05/10/17 at 09:00 Morphine Sulfate (morphine) 1 mg Q4H PRN IV pain Last administered on 21:15; Admin Dose 1 MG; Start 05/10/17 at 09:00 Scopolamine 1 patch 1 patch Q72H TRANSDERM Last administered on 05/20/17 17:23 ; Admin Dose 1 PATCH; Start 05/11/17 at 16:30 Sodium Chloride (NS) 1,000 ml @ 0 mls/hr Q0M PRN IV TO KEEP SBP ABOVE 90; Start 05/12/17 at 08:24 Amiodarone HCl 400 mg 400 mg DAILY NGT Last administered on 05/21/17 08:24; Admin Dose 400 MG; Start 05/16/17 at 09:00 Albumin Human 100 ml @ 100 mls/hr DAILY IV Last administered on 05/21/17 08: 25; Admin Dose 100 MLS/HR; Start 05/18/17 at 09:00; Stop 05/22/17 at 08:59 Meropenem/Sodium Chloride 50 ml @ 100 mls/hr Q24H IVPB Last administered on 13:52; Admin Dose 100 MLS/HR; Start 05/19/17 at 13:00 Vancomycin HCl (Vancocin) 250 ml @ 125 mls/hr 11 IVPB Last administered on 11:39; Admin Dose 125 MLS/HR; Start 05/21/17 at 11:00; Stop 05/21/17 at 20:00 NADIA STRONG May 21, 2017 15:17
[2017-05-21] MEDS: DEXTROSE 5%-0.9% NACL 1,000 ML IV SCH (16:00)
--- NOTE | 2017-05-21 16:05 | CONS ---
Date/Time of Note Date/Time of Note DATE: 05/21/17 TIME: 15:57 Assessment/Plan Assessment/Plan Additional Assessment/Plan Acute CT CAD s/p CABG Cardiogenic shock Ischemic cardiomyopathy Acute on chronic systolic heart failure Ventricular Tachycardia VDRF ESRD on HD Shock Liver Off vasopressors Continue Amiodarone Continue antibiotics Continue Vent support Continue Coreg Continue Lisinopril HD as scheduled Anoxic encephalopathy Monitor in ICU Comfort care by Tuesday per family wishes Consultation Date/Type/Reason Admit Date/Time Apr 29, 2017 at 19:31 Respiratory: shortness of breath (+) Cardiovascular: no complaints Gastrointestinal: no complaints Psychological: no complaints Past Medical History Medical History: cancer (h/p throat cancer s/p chemo/rads), coronary artery disease, hypertension Past Surgical History Past Surgical Hx: coronary bypass surgery Social History Alcohol Use: none Smoking Status: Former smoker Drug Use: none Exam/Review of Systems Vital Signs Vitals Vital Signs Date Time Temp Pulse Resp B/P Pulse Ox O2 Delivery O2 Flow Rate FiO2 05/21/17 13:30 80 25 148/70 99 05/21/17 13:00 Mechanical Ventilator 05/21/17 12:00 99.1 05/21/17 11:30 30 Intake and Output 05/20/17 05/20/17 05/21/17 15:00 23:00 07:00 Intake Total 1511.32 ml 612.86 ml 196 ml Output Total 3000 ml 0 ml 0 ml Balance -1488.68 ml 612.86 ml 196 ml Exam Gen Sedated and intubated CVS RRR, no m/r/g RS mechanical breath sounds heard b/l Abd BS present Ext No pedal edema Results Result Diagram: 05/21/17 0410 05/21/17 0410 Results 24 hrs Laboratory Tests Test 05/20/17 18:29 05/21/17 04:10 05/21/17 05:27 Platelet Count 62 #L 72 #L Prothrombin Time 15.2 H Prothrombin Time Ratio 1.2 INR International Normalized Ratio 1.19 Activated Partial Thromboplast Time 47.3 H Thrombin Time 15.8 Fibrinogen 338.0 # Plasma Fibrin Degradation Products >10 and <40 H D-Dimer 8762.37 H D-Dimer Comment White Blood Count 4.0 L Red Blood Count 3.20 #L Hemoglobin 9.6 #L Hematocrit 29.4 #L Mean Corpuscular Volume 91.9 Mean Corpuscular Hemoglobin 30.0 Mean Corpuscular Hemoglobin Concent 32.7 Red Cell Distribution Width 19.6 H Mean Platelet Volume 12.2 H Neutrophils % 68.0 Lymphocytes % 11.9 L Monocytes % 12.4 H Eosinophils % 7.2 H Basophils % 0.0 Nucleated Red Blood Cells % 0.0 Neutrophils # 2.8 Lymphocytes # 0.5 L Monocytes # 0.5 Eosinophils # 0.3 Basophils # 0.0 Nucleated Red Blood Cells # 0.0 Sodium Level 144 Potassium Level 4.2 Chloride Level 105 Carbon Dioxide Level 31 Anion Gap 12 Blood Urea Nitrogen 49 #H Creatinine 4.14 #H Glucose Level 71 Calcium Level 9.1 Total Bilirubin 1.1 Direct Bilirubin 0.30 #H Indirect Bilirubin 0.8 Aspartate Amino Transf (AST/SGOT) 47 H Alanine Aminotransferase (ALT/SGPT) 50 Alkaline Phosphatase 122 H Total Protein 6.5 Albumin 3.3 Globulin 3.20 Albumin/Globulin Ratio 1.03 Random Vancomycin Level 15.5 Lab Scanned Report BLOOD TRANSFUSION Medications Medications Current Medications Folic Acid (Folic Acid) 1 mg DAILY PO Last administered on 05/21/17 08:24; Admin Dose 1 MG; Start 04/30/17 at 09:00 Ondansetron HCl (Zofran Inj) 4 mg Q6H PRN IV NAUSEA AND/OR VOMITING Last administered on 05/03/17 23:24; Admin Dose 4 MG; Start 04/29/17 at 20:00 Nitroglycerin (Nitroglycerin (Sl Tab) 0.4 Mg) 1 tab Q5M PRN SL CHEST PAIN; Start 04/29/17 at 20:00 Acetaminophen (Tylenol Liquid) 650 mg Q6H PRN PO PAIN LEVEL 1-3 OR FEVER Last administered on 05/20/17 10:03; Admin Dose 650 MG; Start 04/29/17 at 20:00 Acetaminophen (Tylenol Tab) 650 mg Q6H PRN PO PAIN LEVEL 1-3 OR FEVER; Start at 20:00 Acetaminophen/ Hydrocodone Bitart ([place] (5/325)) 1 tab Q6H PRN PO PAIN LEVEL 4 -6 Last administered on 05/19/17 15:12; Admin Dose 1 TAB; Start 04/29/17 at 20: 00 Zolpidem Tartrate (Ambien) 5 mg QHS PRN PO INSOMNIA; Start 04/29/17 at 20:00 Docusate Sodium (Colace) 100 mg Q12H PRN PO CONSTIPATION; Start 04/29/17 at 20: 00 Bisacodyl (Dulcolax) 5 mg DAILY PRN PO CONSTIPATION; Start 04/29/17 at 20:00 Aspirin 325 mg 325 mg DAILY PO Last administered on 05/13/17 11:24; Admin Dose 325 MG; Start 04/30/17 at 09:00; Status Future Hold Vasopressin 60 unit/Dextrose 60 ml @ 1.2 mls/hr Q12H IV Last administered on 01:07; Admin Dose 2.4 MLS/HR; Start 04/30/17 at 13:00 Phenylephrine HCl 80 mg/Dextrose 250 ml @ 18.75 mls/ hr TITRATE IV Last administered on 05/04/17 09:57; Admin Dose 31.87 MLS/HR; Start 04/30/17 at 18: 00 Norepinephrine/ Dextrose (Levophed/D5W) 250 ml @ 0.46 mls/hr TITRATE IV Last administered on 05/19/17 08:24; Admin Dose 0.93 MLS/HR; Start 04/30/17 at 18:00 Pantoprazole (Protonix Iv) 40 mg BID@06,18 IV Last administered on 05/21/17 05 :31; Admin Dose 40 MG; Start 05/02/17 at 18:00 Diphenhydramine HCl 25 mg 25 mg Q4H PRN IV ITCHING Last administered on 18:01; Admin Dose 25 MG; Start 05/02/17 at 08:30 Dobutamine HCl/ Dextrose 250 ml @ 4.755 mls/ hr TITRATE IV Last administered on 05/07/17 05:21; Admin Dose 3.804 MLS/HR; Start 05/03/17 at 09:30 Miscellaneous Information 1 ea NOTE XX ; Start 05/03/17 at 13:00 Glucose (Glutose) 15 gm Q15M PRN PO DECREASED GLUCOSE; Start 05/03/17 at 12:45 Glucose (Glutose) 22.5 gm Q15M PRN PO DECREASED GLUCOSE; Start 05/03/17 at 12: 45 Dextrose (D50w Syringe) 25 ml Q15M PRN IV DECREASED GLUCOSE Last administered on 05/03/17 12:48; Admin Dose 25 ML; Start 05/03/17 at 12:45 Dextrose (D50w Syringe) 50 ml Q15M PRN IV DECREASED GLUCOSE; Start 05/03/17 at 12:46 Glucagon (Glucagen) 1 mg Q15M PRN IM DECREASED GLUCOSE; Start 05/03/17 at 12:46 Glucose 15 gm 15 gm Q15M PRN BUCCAL DECREASED GLUCOSE; Start 05/03/17 at 12:46 Midazolam HCl 50 ml @ 1 mls/hr TITRATE IV Last administered on 05/20/17 17:18 ; Admin Dose 2 MLS/HR; Start 05/03/17 at 15:00 Dextrose/Sodium Chloride (D5-NS) 1,000 ml @ 20 mls/hr Q24H IV Last administered on 05/20/17 05:16; Admin Dose 20 MLS/HR; Start 05/03/17 at 16:00 Metoclopramide HCl (Reglan) 5 mg Q6 IV Last administered on 05/21/17 11:39; Admin Dose 5 MG; Start 05/04/17 at 12:00 Nystatin 5 ml 5 ml QID PO Last administered on 05/21/17 13:52; Admin Dose 5 ML ; Start 05/04/17 at 13:00 Fentanyl (Sublimaze) 100 ml @ 5 mls/hr TITRATE IV Last administered on 03:20; Admin Dose 6 MLS/HR; Start 05/06/17 at 08:30 Eye Lubricant (Akwa Oint) 1 applic Q4 PRN BOTH EYES dryness Last administered on 05/08/17 08:59; Admin Dose 1 APPLIC; Start 05/07/17 at 13:00 Miscellaneous Information (Pending [facility] Order For Wound Care) This patient otto... PRN PRN XX WOUND CARE; Start 05/07/17 at 13:30 Carvedilol (Coreg) 3.125 mg BID PO Last administered on 05/17/17 09:44; Admin Dose 3.125 MG; Start 05/09/17 at 21:00 Lisinopril (Zestril) 2.5 mg DAILY PO Last administered on 05/17/17 09:44; Admin Dose 2.5 MG; Start 05/10/17 at 09:00 Morphine Sulfate (morphine) 1 mg Q4H PRN IV pain Last administered on 21:15; Admin Dose 1 MG; Start 05/10/17 at 09:00 Scopolamine 1 patch 1 patch Q72H TRANSDERM Last administered on 05/20/17 17:23 ; Admin Dose 1 PATCH; Start 05/11/17 at 16:30 Sodium Chloride (NS) 1,000 ml @ 0 mls/hr Q0M PRN IV TO KEEP SBP ABOVE 90; Start 05/12/17 at 08:24 Amiodarone HCl 400 mg 400 mg DAILY NGT Last administered on 05/21/17 08:24; Admin Dose 400 MG; Start 05/16/17 at 09:00 Albumin Human 100 ml @ 100 mls/hr DAILY IV Last administered on 05/21/17 08: 25; Admin Dose 100 MLS/HR; Start 05/18/17 at 09:00; Stop 05/22/17 at 08:59 Meropenem/Sodium Chloride 50 ml @ 100 mls/hr Q24H IVPB Last administered on 13:52; Admin Dose 100 MLS/HR; Start 05/19/17 at 13:00 Vancomycin HCl (Vancocin) 250 ml @ 125 mls/hr 11 IVPB Last administered on 11:39; Admin Dose 125 MLS/HR; Start 05/21/17 at 11:00; Stop 05/21/17 at 20:00 DENISSE HUNT M.D. May 21, 2017 16:05
[2017-05-21] MEDS: ERYTHROMYCIN ETHYL SUCC (80 MG/ML PO SYG) PO SCH ×2 (17:15→23:20)
--- NOTE | 2017-05-21 17:49 | PN ---
Date/Time of Note Date/Time of Note DATE: 05/21/17 TIME: 17:45 Assessment/Plan VTE Prophylaxis VTE Prophylaxis Intervention: other Lines/Catheters IV Catheter Type (from Nrs): Central Line Central line still needed: Yes Urinary Cath still in place: No Assessment/Plan Chief Complaint/Hosp Course A/P NSTEMI S/P V TACH ESRD PUL EDEMA BETTER SHOCK LIVER BETTER PNEUMONIA SYS HEAR T FAILURE BETTER ANEMIA LOW PLATELET VDRF S/P CATH NO PCI LOW EF BETTER PER DR SIMON DVT ARM ESOPHAGIAL DILATITION PER GI HX EDEMA ARMS PLAN CONTINUE HD FEEDING WEANING per family and treat pneumonia and chf before extubation Problems: Subjective 24 Hr Interval Summary Subjective hx not possible: other (d/w pt family,thew want pt to be treated not to do termianl extubation when he has chf and pneumonia not treated fully) Exam/Review of Systems Vital Signs Vitals Vital Signs Date Time Temp Pulse Resp B/P Pulse Ox O2 Delivery O2 Flow Rate FiO2 05/21/17 17:30 70 16 98/47 97 05/21/17 17:00 Mechanical Ventilator 05/21/17 16:00 98.9 05/21/17 15:30 30 Intake and Output 05/20/17 05/20/17 05/21/17 15:00 23:00 07:00 Intake Total 1511.32 ml 612.86 ml 196 ml Output Total 3000 ml 0 ml 0 ml Balance -1488.68 ml 612.86 ml 196 ml Exam Respiratory: diminished breath sounds Cardiovascular: regular rate and rhythm Gastrointestinal: soft Extremities: edema (+) Results Result Diagram: 05/21/17 0410 05/21/17 0410 Results 24 hrs Laboratory Tests Test 05/20/17 18:29 05/21/17 04:10 05/21/17 05:27 Platelet Count 62 #L 72 #L Prothrombin Time 15.2 H Prothrombin Time Ratio 1.2 INR International Normalized Ratio 1.19 Activated Partial Thromboplast Time 47.3 H Thrombin Time 15.8 Fibrinogen 338.0 # Plasma Fibrin Degradation Products >10 and <40 H D-Dimer 8762.37 H D-Dimer Comment White Blood Count 4.0 L Red Blood Count 3.20 #L Hemoglobin 9.6 #L Hematocrit 29.4 #L Mean Corpuscular Volume 91.9 Mean Corpuscular Hemoglobin 30.0 Mean Corpuscular Hemoglobin Concent 32.7 Red Cell Distribution Width 19.6 H Mean Platelet Volume 12.2 H Neutrophils % 68.0 Lymphocytes % 11.9 L Monocytes % 12.4 H Eosinophils % 7.2 H Basophils % 0.0 Nucleated Red Blood Cells % 0.0 Neutrophils # 2.8 Lymphocytes # 0.5 L Monocytes # 0.5 Eosinophils # 0.3 Basophils # 0.0 Nucleated Red Blood Cells # 0.0 Sodium Level 144 Potassium Level 4.2 Chloride Level 105 Carbon Dioxide Level 31 Anion Gap 12 Blood Urea Nitrogen 49 #H Creatinine 4.14 #H Glucose Level 71 Calcium Level 9.1 Total Bilirubin 1.1 Direct Bilirubin 0.30 #H Indirect Bilirubin 0.8 Aspartate Amino Transf (AST/SGOT) 47 H Alanine Aminotransferase (ALT/SGPT) 50 Alkaline Phosphatase 122 H Total Protein 6.5 Albumin 3.3 Globulin 3.20 Albumin/Globulin Ratio 1.03 Random Vancomycin Level 15.5 Lab Scanned Report BLOOD TRANSFUSION Medications Medications Current Medications Folic Acid (Folic Acid) 1 mg DAILY PO Last administered on 05/21/17 08:24; Admin Dose 1 MG; Start 04/30/17 at 09:00 Ondansetron HCl (Zofran Inj) 4 mg Q6H PRN IV NAUSEA AND/OR VOMITING Last administered on 05/03/17 23:24; Admin Dose 4 MG; Start 04/29/17 at 20:00 Nitroglycerin (Nitroglycerin (Sl Tab) 0.4 Mg) 1 tab Q5M PRN SL CHEST PAIN; Start 04/29/17 at 20:00 Acetaminophen (Tylenol Liquid) 650 mg Q6H PRN PO PAIN LEVEL 1-3 OR FEVER Last administered on 05/20/17 10:03; Admin Dose 650 MG; Start 04/29/17 at 20:00 Acetaminophen (Tylenol Tab) 650 mg Q6H PRN PO PAIN LEVEL 1-3 OR FEVER; Start at 20:00 Acetaminophen/ Hydrocodone Bitart ([place] (5/325)) 1 tab Q6H PRN PO PAIN LEVEL 4 -6 Last administered on 05/19/17 15:12; Admin Dose 1 TAB; Start 04/29/17 at 20: 00 Zolpidem Tartrate (Ambien) 5 mg QHS PRN PO INSOMNIA; Start 04/29/17 at 20:00 Docusate Sodium (Colace) 100 mg Q12H PRN PO CONSTIPATION; Start 04/29/17 at 20: 00 Bisacodyl (Dulcolax) 5 mg DAILY PRN PO CONSTIPATION; Start 04/29/17 at 20:00 Aspirin 325 mg 325 mg DAILY PO Last administered on 05/13/17 11:24; Admin Dose 325 MG; Start 04/30/17 at 09:00; Status Future Hold Vasopressin 60 unit/Dextrose 60 ml @ 1.2 mls/hr Q12H IV Last administered on 01:07; Admin Dose 2.4 MLS/HR; Start 04/30/17 at 13:00 Phenylephrine HCl 80 mg/Dextrose 250 ml @ 18.75 mls/ hr TITRATE IV Last administered on 05/04/17 09:57; Admin Dose 31.87 MLS/HR; Start 04/30/17 at 18: 00 Norepinephrine/ Dextrose (Levophed/D5W) 250 ml @ 0.46 mls/hr TITRATE IV Last administered on 05/19/17 08:24; Admin Dose 0.93 MLS/HR; Start 04/30/17 at 18:00 Pantoprazole (Protonix Iv) 40 mg BID@06,18 IV Last administered on 05/21/17 17 :14; Admin Dose 40 MG; Start 05/02/17 at 18:00 Diphenhydramine HCl 25 mg 25 mg Q4H PRN IV ITCHING Last administered on 18:01; Admin Dose 25 MG; Start 05/02/17 at 08:30 Dobutamine HCl/ Dextrose 250 ml @ 4.755 mls/ hr TITRATE IV Last administered on 05/07/17 05:21; Admin Dose 3.804 MLS/HR; Start 05/03/17 at 09:30 Miscellaneous Information 1 ea NOTE XX ; Start 05/03/17 at 13:00 Glucose (Glutose) 15 gm Q15M PRN PO DECREASED GLUCOSE; Start 05/03/17 at 12:45 Glucose (Glutose) 22.5 gm Q15M PRN PO DECREASED GLUCOSE; Start 05/03/17 at 12: 45 Dextrose (D50w Syringe) 25 ml Q15M PRN IV DECREASED GLUCOSE Last administered on 05/03/17 12:48; Admin Dose 25 ML; Start 05/03/17 at 12:45 Dextrose (D50w Syringe) 50 ml Q15M PRN IV DECREASED GLUCOSE; Start 05/03/17 at 12:46 Glucagon (Glucagen) 1 mg Q15M PRN IM DECREASED GLUCOSE; Start 05/03/17 at 12:46 Glucose 15 gm 15 gm Q15M PRN BUCCAL DECREASED GLUCOSE; Start 05/03/17 at 12:46 Midazolam HCl 50 ml @ 1 mls/hr TITRATE IV Last administered on 05/20/17 17:18 ; Admin Dose 2 MLS/HR; Start 05/03/17 at 15:00 Dextrose/Sodium Chloride (D5-NS) 1,000 ml @ 20 mls/hr Q24H IV Last administered on 05/20/17 05:16; Admin Dose 20 MLS/HR; Start 05/03/17 at 16:00 Metoclopramide HCl (Reglan) 5 mg Q6 IV Last administered on 05/21/17 17:14; Admin Dose 5 MG; Start 05/04/17 at 12:00 Nystatin 5 ml 5 ml QID PO Last administered on 05/21/17 17:14; Admin Dose 5 ML ; Start 05/04/17 at 13:00 Fentanyl (Sublimaze) 100 ml @ 5 mls/hr TITRATE IV Last administered on 03:20; Admin Dose 6 MLS/HR; Start 05/06/17 at 08:30 Eye Lubricant (Akwa Oint) 1 applic Q4 PRN BOTH EYES dryness Last administered on 05/08/17 08:59; Admin Dose 1 APPLIC; Start 05/07/17 at 13:00 Miscellaneous Information (Pending [facility]) This patient otto... PRN PRN XX WOUND CARE; Start 05/07/17 at 13:30 Carvedilol (Coreg) 3.125 mg BID PO Last administered on 05/17/17 09:44; Admin Dose 3.125 MG; Start 05/09/17 at 21:00 Lisinopril (Zestril) 2.5 mg DAILY PO Last administered on 05/17/17 09:44; Admin Dose 2.5 MG; Start 05/10/17 at 09:00 Morphine Sulfate (morphine) 1 mg Q4H PRN IV pain Last administered on 21:15; Admin Dose 1 MG; Start 05/10/17 at 09:00 Scopolamine 1 patch 1 patch Q72H TRANSDERM Last administered on 05/20/17 17:23 ; Admin Dose 1 PATCH; Start 05/11/17 at 16:30 Sodium Chloride (NS) 1,000 ml @ 0 mls/hr Q0M PRN IV TO KEEP SBP ABOVE 90; Start 05/12/17 at 08:24 Amiodarone HCl 400 mg 400 mg DAILY NGT Last administered on 05/21/17 08:24; Admin Dose 400 MG; Start 05/16/17 at 09:00 Albumin Human 100 ml @ 100 mls/hr DAILY IV Last administered on 05/21/17 08: 25; Admin Dose 100 MLS/HR; Start 05/18/17 at 09:00; Stop 05/22/17 at 08:59 Meropenem/Sodium Chloride 50 ml @ 100 mls/hr Q24H IVPB Last administered on 13:52; Admin Dose 100 MLS/HR; Start 05/19/17 at 13:00 Vancomycin HCl 250 ml @ 125 mls/hr 11 IVPB Last administered on 05/21/17 11: 39; Admin Dose 125 MLS/HR; Start 05/21/17 at 11:00; Stop 05/21/17 at 20:00 Desmopressin Acetate 15 mcg/ Sodium Chloride 53.75 ml @ 107.5 mls/ hr ONCE ONCE IVPB ; Start 05/21/17 at 18:00; Stop 05/21/17 at 18:29 Desmopressin Acetate/Sodium Chloride (Ddavp/NS) 53.75 ml @ 107.5 mls/ hr ONCE ONCE IVPB ; Start 05/22/17 at 17:00; Stop 05/22/17 at 17:29 Erythromycin Ethylsuccinate (E.e.s (Ped)) 225 mg Q6 PO Last administered on 17:15; Admin Dose 225 MG; Start 05/21/17 at 18:00; Stop 05/24/17 at 12: 01 YENNY WINSTON MD May 21, 2017 17:49
[2017-05-21] MEDS ORDERED: DESMOPRESSIN 15 MCG in SOD CHLORIDE 0.9% 50 ML IVPB ONE (18:00)
[2017-05-21] MEDS: MIDAZOLAM (DRIP) 50 mg/50 mL 50 ML IV SCH (19:44)
[2017-05-22] VITALS (69 sets, daily range): BP systolic 78–138; BP diastolic 42–66; PULSE 62–91; RESP 11–21
[2017-05-22] MEDS: VASOPRESSIN 60 UNIT in DEXTROSE 5% 57 ML IV SCH ×2 (01:00→12:20)
[2017-05-22] MEDS: IPRATROPIUM (HFA) 12.9 GM INHALER INH SCH ×4 (01:01→18:50)
[2017-05-22] MEDS: ALBUTEROL 18 GM INHALER INH SCH ×4 (01:01→18:51)
[2017-05-22] MEDS: METOCLOPRAMIDE 10 MG INJ IV SCH ×2 (05:21→13:21)
[2017-05-22] MEDS: ERYTHROMYCIN ETHYL SUCC (80 MG/ML PO SYG) PO SCH ×3 (05:21→17:33)
[2017-05-22] MEDS: PANTOPRAZOLE 40 MG INJ IV SCH ×2 (05:21→17:33)
[2017-05-22] MEDS: AMIODARONE 200 MG TAB NGT SCH (09:00)
[2017-05-22] MEDS: LISINOPRIL 5 MG TAB PO SCH (09:00)
[2017-05-22] MEDS: FOLIC ACID 1 MG TAB PO SCH (10:46)
[2017-05-22] MEDS: NYSTATIN SUSP 5 ML CUP PO SCH ×4 (10:46→20:53)
[2017-05-22] MEDS: BALSAM PERU/CASTOR OIL 60 GM TUBE TOP SCH ×2 (10:48→20:54)
--- NOTE | 2017-05-22 12:14 | CONS ---
Date/Time of Note Date/Time of Note DATE: 05/22/17 TIME: 12:12 Consult Date/Type/Reason Admit Date/Time Apr 29, 2017 at 19:31 Type of Consultation: Pulm/CCM Ordering Provider: YENNY WINSTON MD Subjective No events. Unresponsive on MV. Objective Vital Signs Date Time Temp Pulse Resp B/P Pulse Ox O2 Delivery O2 Flow Rate FiO2 05/22/17 11:30 73 16 87/43 98 Mechanical Ventilator 05/22/17 08:00 100.5 05/22/17 04:55 30 Intake and Output 05/21/17 05/21/17 05/22/17 15:00 23:00 07:00 Intake Total 656 ml 196 ml 196 ml Output Total 0 ml 0 ml 0 ml Balance 656 ml 196 ml 196 ml Exam HEENT: Pupils equal, round, and reactive to light. CARDIAC: S1, S2, 1/6 systolic ejection murmur CHEST: Diminished air entry bilaterally. ABDOMEN: Mildly distended. Bowel sounds present no guarding or rebound EXTREMITIES: No cyanosis, clubbing edema +1 Results/Medications Result Diagram: 05/21/17 0410 05/21/17 0410 Medications Current Medications Folic Acid (Folic Acid) 1 mg DAILY PO Last administered on 05/22/17 10:46; Admin Dose 1 MG; Start 04/30/17 at 09:00 Ondansetron HCl (Zofran Inj) 4 mg Q6H PRN IV NAUSEA AND/OR VOMITING Last administered on 05/03/17 23:24; Admin Dose 4 MG; Start 04/29/17 at 20:00 Nitroglycerin (Nitroglycerin (Sl Tab) 0.4 Mg) 1 tab Q5M PRN SL CHEST PAIN; Start 04/29/17 at 20:00 Acetaminophen (Tylenol Liquid) 650 mg Q6H PRN PO PAIN LEVEL 1-3 OR FEVER Last administered on 05/20/17 10:03; Admin Dose 650 MG; Start 04/29/17 at 20:00 Acetaminophen (Tylenol Tab) 650 mg Q6H PRN PO PAIN LEVEL 1-3 OR FEVER; Start at 20:00 Acetaminophen/ Hydrocodone Bitart ([place] (5/325)) 1 tab Q6H PRN PO PAIN LEVEL 4 -6 Last administered on 05/19/17 15:12; Admin Dose 1 TAB; Start 04/29/17 at 20: 00 Zolpidem Tartrate (Ambien) 5 mg QHS PRN PO INSOMNIA; Start 04/29/17 at 20:00 Docusate Sodium (Colace) 100 mg Q12H PRN PO CONSTIPATION; Start 04/29/17 at 20: 00 Bisacodyl (Dulcolax) 5 mg DAILY PRN PO CONSTIPATION; Start 04/29/17 at 20:00 Aspirin 325 mg 325 mg DAILY PO Last administered on 05/13/17 11:24; Admin Dose 325 MG; Start 04/30/17 at 09:00; Status Future Hold Vasopressin 60 unit/Dextrose 60 ml @ 1.2 mls/hr Q12H IV Last administered on 01:07; Admin Dose 2.4 MLS/HR; Start 04/30/17 at 13:00 Phenylephrine HCl 80 mg/Dextrose 250 ml @ 18.75 mls/ hr TITRATE IV Last administered on 05/04/17 09:57; Admin Dose 31.87 MLS/HR; Start 04/30/17 at 18: 00 Norepinephrine/ Dextrose (Levophed/D5W) 250 ml @ 0.46 mls/hr TITRATE IV Last administered on 05/19/17 08:24; Admin Dose 0.93 MLS/HR; Start 04/30/17 at 18:00 Pantoprazole (Protonix Iv) 40 mg BID@06,18 IV Last administered on 05/22/17 05 :21; Admin Dose 40 MG; Start 05/02/17 at 18:00 Diphenhydramine HCl 25 mg 25 mg Q4H PRN IV ITCHING Last administered on 18:01; Admin Dose 25 MG; Start 05/02/17 at 08:30 Dobutamine HCl/ Dextrose 250 ml @ 4.755 mls/ hr TITRATE IV Last administered on 05/07/17 05:21; Admin Dose 3.804 MLS/HR; Start 05/03/17 at 09:30 Miscellaneous Information 1 ea NOTE XX ; Start 05/03/17 at 13:00 Glucose (Glutose) 15 gm Q15M PRN PO DECREASED GLUCOSE; Start 05/03/17 at 12:45 Glucose (Glutose) 22.5 gm Q15M PRN PO DECREASED GLUCOSE; Start 05/03/17 at 12: 45 Dextrose (D50w Syringe) 25 ml Q15M PRN IV DECREASED GLUCOSE Last administered on 05/03/17 12:48; Admin Dose 25 ML; Start 05/03/17 at 12:45 Dextrose (D50w Syringe) 50 ml Q15M PRN IV DECREASED GLUCOSE; Start 05/03/17 at 12:46 Glucagon (Glucagen) 1 mg Q15M PRN IM DECREASED GLUCOSE; Start 05/03/17 at 12:46 Glucose 15 gm 15 gm Q15M PRN BUCCAL DECREASED GLUCOSE; Start 05/03/17 at 12:46 Midazolam HCl 50 ml @ 1 mls/hr TITRATE IV Last administered on 05/21/17 19:44 ; Admin Dose 2 MLS/HR; Start 05/03/17 at 15:00 Dextrose/Sodium Chloride (D5-NS) 1,000 ml @ 20 mls/hr Q24H IV Last administered on 05/20/17 05:16; Admin Dose 20 MLS/HR; Start 05/03/17 at 16:00 Metoclopramide HCl (Reglan) 5 mg Q6 IV Last administered on 05/22/17 05:21; Admin Dose 5 MG; Start 05/04/17 at 12:00 Nystatin 5 ml 5 ml QID PO Last administered on 05/22/17 10:46; Admin Dose 5 ML ; Start 05/04/17 at 13:00 Fentanyl (Sublimaze) 100 ml @ 5 mls/hr TITRATE IV Last administered on 19:33; Admin Dose 5 MLS/HR; Start 05/06/17 at 08:30 Eye Lubricant (Akwa Oint) 1 applic Q4 PRN BOTH EYES dryness Last administered on 05/08/17 08:59; Admin Dose 1 APPLIC; Start 05/07/17 at 13:00 Miscellaneous Information (Pending [facility] Order For Wound Care) This patient otto... PRN PRN XX WOUND CARE; Start 05/07/17 at 13:30 Carvedilol (Coreg) 3.125 mg BID PO Last administered on 05/17/17 09:44; Admin Dose 3.125 MG; Start 05/09/17 at 21:00 Lisinopril (Zestril) 2.5 mg DAILY PO Last administered on 05/17/17 09:44; Admin Dose 2.5 MG; Start 05/10/17 at 09:00 Morphine Sulfate (morphine) 1 mg Q4H PRN IV pain Last administered on 21:15; Admin Dose 1 MG; Start 05/10/17 at 09:00 Scopolamine 1 patch 1 patch Q72H TRANSDERM Last administered on 05/20/17 17:23 ; Admin Dose 1 PATCH; Start 05/11/17 at 16:30 Sodium Chloride (NS) 1,000 ml @ 0 mls/hr Q0M PRN IV TO KEEP SBP ABOVE 90; Start 05/12/17 at 08:24 Amiodarone HCl 400 mg 400 mg DAILY NGT Last administered on 05/21/17 08:24; Admin Dose 400 MG; Start 05/16/17 at 09:00 Meropenem/Sodium Chloride 50 ml @ 100 mls/hr Q24H IVPB Last administered on 13:52; Admin Dose 100 MLS/HR; Start 05/19/17 at 13:00 Desmopressin Acetate/Sodium Chloride (Ddavp/NS) 53.75 ml @ 107.5 mls/ hr ONCE ONCE IVPB ; Start 05/22/17 at 17:00; Stop 05/22/17 at 17:29 Erythromycin Ethylsuccinate (E.e.s (Ped)) 225 mg Q6 PO Last administered on 10:46; Admin Dose 225 MG; Start 05/21/17 at 18:00; Stop 05/24/17 at 12: 01 Assessment/Plan Chief Complaint/Hosp Course Briefly, this is an 87 yo with HTN, CAD, CABG 1989 4V -0 per family presenting with V.tach/fib arrest likely due to a massive OK with associated refractory cardiogenic shock. Problems: Additional Assessment/Plan IMP: 1. Hypoxemic respiratory failure on mechanical ventilation, persistent respiratory failure patient unable to wean from mechanical ventilation despite multiple weaning trials. Family considering plan of care. Tracheostomy not consistent with patient's wishes. 2. Multiorgan failure with status post septic shock with persistent thrombocytopenia. 3. Recent upper GI bleed. 4. Dysphagia nasogastric tube in place 5. 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 Continue broad-spectrum antibiotics, 2. Continue hemodialysis as tolerated 3. Continue mechanical ventilation 4. TF/Free H20 5. Fentanyl/Versed 6. Family considering transition to comfort care with terminal extubation on Tuesday as per patients' previously expressed wishes. 35 min cc time RY WONG MD May 22, 2017 12:14
--- NOTE | 2017-05-22 13:01 | PN ---
Date/Time of Note Date/Time of Note DATE: 05/22/17 TIME: 12:59 Assessment/Plan VTE Prophylaxis VTE Prophylaxis Intervention: anti-embolic stocking Lines/Catheters IV Catheter Type (from Nrsg): Central Line Central line still needed: Yes Urinary Cath still in place: No Assessment/Plan Chief Complaint/Hosp Course 1. cardiogenic shock, resolving 2. Dysphagia. 3. History of head and neck or laryngeal cancer. 4. 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 5. History of coronary artery disease, status post coronary artery bypass grafting. 6. hypertension, controlled 7. Acute on chronic heart failure with EF 30% 8. Shock liver improving LFTs with improving ischemia 9. Lactic acidosis 10. Respiratory failure on Vent 11. Anemia 12. Right arm DVT but cannot be on anticoagulation due to thrombocytopenia Problems: Assessment/Plan 1. Continue ICu treatment 2. Unable to wean 3. Today HD was interrupted with low BP 4. Planned extubation on tuesday Subjective 24 Hr Interval Summary Subjective hx not possible: pt non-verbal, pt critical Exam/Review of Systems Vital Signs Vitals Vital Signs Date Time Temp Pulse Resp B/P Pulse Ox O2 Delivery O2 Flow Rate FiO2 05/22/17 12:00 73 05/22/17 11:30 16 87/43 98 Mechanical Ventilator 05/22/17 08:00 100.5 05/22/17 04:55 30 Intake and Output 05/21/17 05/21/17 05/22/17 15:00 23:00 07:00 Intake Total 656 ml 196 ml 196 ml Output Total 0 ml 0 ml 0 ml Balance 656 ml 196 ml 196 ml Exam Constitutional: other (non responsive) ENMT: other (oral bleeding) Neck: supple Respiratory: diminished breath sounds Cardiovascular: irregular rhythm Gastrointestinal: distended, soft Results Result Diagram: 05/21/17 0410 05/21/17 041 Medications Medications Current Medications Folic Acid (Folic Acid) 1 mg DAILY PO Last administered on 05/22/17 10:46; Admin Dose 1 MG; Start 04/30/17 at 09:00 Ondansetron HCl (Zofran Inj) 4 mg Q6H PRN IV NAUSEA AND/OR VOMITING Last administered on 05/03/17 23:24; Admin Dose 4 MG; Start 04/29/17 at 20:00 Nitroglycerin (Nitroglycerin (Sl Tab) 0.4 Mg) 1 tab Q5M PRN SL CHEST PAIN; Start 04/29/17 at 20:00 Acetaminophen (Tylenol Liquid) 650 mg Q6H PRN PO PAIN LEVEL 1-3 OR FEVER Last administered on 05/20/17 10:03; Admin Dose 650 MG; Start 04/29/17 at 20:00 Acetaminophen (Tylenol Tab) 650 mg Q6H PRN PO PAIN LEVEL 1-3 OR FEVER; Start at 20:00 Acetaminophen/ Hydrocodone Bitart ([place] (5/325)) 1 tab Q6H PRN PO PAIN LEVEL 4 -6 Last administered on 05/19/17 15:12; Admin Dose 1 TAB; Start 04/29/17 at 20: 00 Zolpidem Tartrate (Ambien) 5 mg QHS PRN PO INSOMNIA; Start 04/29/17 at 20:00 Docusate Sodium (Colace) 100 mg Q12H PRN PO CONSTIPATION; Start 04/29/17 at 20: 00 Bisacodyl (Dulcolax) 5 mg DAILY PRN PO CONSTIPATION; Start 04/29/17 at 20:00 Aspirin 325 mg 325 mg DAILY PO Last administered on 05/13/17 11:24; Admin Dose 325 MG; Start 04/30/17 at 09:00; Status Future Hold Vasopressin 60 unit/Dextrose 60 ml @ 1.2 mls/hr Q12H IV Last administered on 01:07; Admin Dose 2.4 MLS/HR; Start 04/30/17 at 13:00 Phenylephrine HCl 80 mg/Dextrose 250 ml @ 18.75 mls/ hr TITRATE IV Last administered on 05/04/17 09:57; Admin Dose 31.87 MLS/HR; Start 04/30/17 at 18: 00 Norepinephrine/ Dextrose (Levophed/D5W) 250 ml @ 0.46 mls/hr TITRATE IV Last administered on 05/19/17 08:24; Admin Dose 0.93 MLS/HR; Start 04/30/17 at 18:00 Pantoprazole (Protonix Iv) 40 mg BID@06,18 IV Last administered on 05/22/17 05 :21; Admin Dose 40 MG; Start 05/02/17 at 18:00 Diphenhydramine HCl 25 mg 25 mg Q4H PRN IV ITCHING Last administered on 18:01; Admin Dose 25 MG; Start 05/02/17 at 08:30 Dobutamine HCl/ Dextrose 250 ml @ 4.755 mls/ hr TITRATE IV Last administered on 05/07/17 05:21; Admin Dose 3.804 MLS/HR; Start 05/03/17 at 09:30 Miscellaneous Information 1 ea NOTE XX ; Start 05/03/17 at 13:00 Glucose (Glutose) 15 gm Q15M PRN PO DECREASED GLUCOSE; Start 05/03/17 at 12:45 Glucose (Glutose) 22.5 gm Q15M PRN PO DECREASED GLUCOSE; Start 05/03/17 at 12: 45 Dextrose (D50w Syringe) 25 ml Q15M PRN IV DECREASED GLUCOSE Last administered on 05/03/17 12:48; Admin Dose 25 ML; Start 05/03/17 at 12:45 Dextrose (D50w Syringe) 50 ml Q15M PRN IV DECREASED GLUCOSE; Start 05/03/17 at 12:46 Glucagon (Glucagen) 1 mg Q15M PRN IM DECREASED GLUCOSE; Start 05/03/17 at 12:46 Glucose 15 gm 15 gm Q15M PRN BUCCAL DECREASED GLUCOSE; Start 05/03/17 at 12:46 Midazolam HCl 50 ml @ 1 mls/hr TITRATE IV Last administered on 05/21/17 19:44 ; Admin Dose 2 MLS/HR; Start 05/03/17 at 15:00 Dextrose/Sodium Chloride (D5-NS) 1,000 ml @ 20 mls/hr Q24H IV Last administered on 05/20/17 05:16; Admin Dose 20 MLS/HR; Start 05/03/17 at 16:00 Metoclopramide HCl (Reglan) 5 mg Q6 IV Last administered on 05/22/17 05:21; Admin Dose 5 MG; Start 05/04/17 at 12:00 Nystatin 5 ml 5 ml QID PO Last administered on 05/22/17 10:46; Admin Dose 5 ML ; Start 05/04/17 at 13:00 Fentanyl (Sublimaze) 100 ml @ 5 mls/hr TITRATE IV Last administered on 19:33; Admin Dose 5 MLS/HR; Start 05/06/17 at 08:30 Eye Lubricant (Akwa Oint) 1 applic Q4 PRN BOTH EYES dryness Last administered on 05/08/17 08:59; Admin Dose 1 APPLIC; Start 05/07/17 at 13:00 [facility] This patient otto... PRN PRN XX WOUND CARE; Start 05/07/17 at 13:30 Carvedilol (Coreg) 3.125 mg BID PO Last administered on 05/17/17 09:44; Admin Dose 3.125 MG; Start 05/09/17 at 21:00 Lisinopril (Zestril) 2.5 mg DAILY PO Last administered on 05/17/17 09:44; Admin Dose 2.5 MG; Start 05/10/17 at 09:00 Morphine Sulfate (morphine) 1 mg Q4H PRN IV pain Last administered on 21:15; Admin Dose 1 MG; Start 05/10/17 at 09:00 Scopolamine 1 patch 1 patch Q72H TRANSDERM Last administered on 05/20/17 17:23 ; Admin Dose 1 PATCH; Start 05/11/17 at 16:30 Sodium Chloride (NS) 1,000 ml @ 0 mls/hr Q0M PRN IV TO KEEP SBP ABOVE 90; Start 05/12/17 at 08:24 Amiodarone HCl 400 mg 400 mg DAILY NGT Last administered on 05/21/17 08:24; Admin Dose 400 MG; Start 05/16/17 at 09:00 Meropenem/Sodium Chloride 50 ml @ 100 mls/hr Q24H IVPB Last administered on 13:52; Admin Dose 100 MLS/HR; Start 05/19/17 at 13:00 Desmopressin Acetate/Sodium Chloride (Ddavp/NS) 53.75 ml @ 107.5 mls/ hr ONCE ONCE IVPB ; Start 05/22/17 at 17:00; Stop 05/22/17 at 17:29 Erythromycin Ethylsuccinate (E.e.s (Ped)) 225 mg Q6 PO Last administered on 10:46; Admin Dose 225 MG; Start 05/21/17 at 18:00; Stop 05/24/17 at 12: 01 NADIA STRONG May 22, 2017 13:01
--- NOTE | 2017-05-22 13:17 | CONS ---
Date/Time of Note Date/Time of Note DATE: 05/22/17 TIME: 13:16 Assessment/Plan Assessment/Plan Chief Complaint/Hosp Course Full note dictated [id number] Problems: Consultation Date/Type/Reason Admit Date/Time Apr 29, 2017 at 19:31 Initial Consult Date 05/02/17 Type of Consultation: ID Referring Provider: YENNY WINSTON MD Exam/Review of Systems Vital Signs Vitals Vital Signs Date Time Temp Pulse Resp B/P Pulse Ox O2 Delivery O2 Flow Rate FiO2 05/22/17 12:00 73 05/22/17 11:30 16 87/43 98 Mechanical Ventilator 05/22/17 08:00 100.5 05/22/17 04:55 30 Intake and Output 05/21/17 05/21/17 05/22/17 15:00 23:00 07:00 Intake Total 656 ml 196 ml 196 ml Output Total 0 ml 0 ml 0 ml Balance 656 ml 196 ml 196 ml Results Result Diagram: 05/21/17 0410 05/21/17 0410 Medications Medications Current Medications Folic Acid (Folic Acid) 1 mg DAILY PO Last administered on 05/22/17 10:46; Admin Dose 1 MG; Start 04/30/17 at 09:00 Ondansetron HCl (Zofran Inj) 4 mg Q6H PRN IV NAUSEA AND/OR VOMITING Last administered on 05/03/17 23:24; Admin Dose 4 MG; Start 04/29/17 at 20:00 Nitroglycerin (Nitroglycerin (Sl Tab) 0.4 Mg) 1 tab Q5M PRN SL CHEST PAIN; Start 04/29/17 at 20:00 Acetaminophen (Tylenol Liquid) 650 mg Q6H PRN PO PAIN LEVEL 1-3 OR FEVER Last administered on 05/20/17 10:03; Admin Dose 650 MG; Start 04/29/17 at 20:00 Acetaminophen (Tylenol Tab) 650 mg Q6H PRN PO PAIN LEVEL 1-3 OR FEVER; Start at 20:00 Acetaminophen/ Hydrocodone Bitart ([place] (5/325)) 1 tab Q6H PRN PO PAIN LEVEL 4 -6 Last administered on 05/19/17 15:12; Admin Dose 1 TAB; Start 04/29/17 at 20: 00 Zolpidem Tartrate (Ambien) 5 mg QHS PRN PO INSOMNIA; Start 04/29/17 at 20:00 Docusate Sodium (Colace) 100 mg Q12H PRN PO CONSTIPATION; Start 04/29/17 at 20: 00 Bisacodyl (Dulcolax) 5 mg DAILY PRN PO CONSTIPATION; Start 04/29/17 at 20:00 Aspirin 325 mg 325 mg DAILY PO Last administered on 05/13/17 11:24; Admin Dose 325 MG; Start 04/30/17 at 09:00; Status Future Hold Vasopressin 60 unit/Dextrose 60 ml @ 1.2 mls/hr Q12H IV Last administered on 01:07; Admin Dose 2.4 MLS/HR; Start 04/30/17 at 13:00 Phenylephrine HCl 80 mg/Dextrose 250 ml @ 18.75 mls/ hr TITRATE IV Last administered on 05/04/17 09:57; Admin Dose 31.87 MLS/HR; Start 04/30/17 at 18: 00 Norepinephrine/ Dextrose (Levophed/D5W) 250 ml @ 0.46 mls/hr TITRATE IV Last administered on 05/19/17 08:24; Admin Dose 0.93 MLS/HR; Start 04/30/17 at 18:00 Pantoprazole (Protonix Iv) 40 mg BID@06,18 IV Last administered on 05/22/17 05 :21; Admin Dose 40 MG; Start 05/02/17 at 18:00 Diphenhydramine HCl 25 mg 25 mg Q4H PRN IV ITCHING Last administered on 18:01; Admin Dose 25 MG; Start 05/02/17 at 08:30 Dobutamine HCl/ Dextrose 250 ml @ 4.755 mls/ hr TITRATE IV Last administered on 05/07/17 05:21; Admin Dose 3.804 MLS/HR; Start 05/03/17 at 09:30 Miscellaneous Information 1 ea NOTE XX ; Start 05/03/17 at 13:00 Glucose (Glutose) 15 gm Q15M PRN PO DECREASED GLUCOSE; Start 05/03/17 at 12:45 Glucose (Glutose) 22.5 gm Q15M PRN PO DECREASED GLUCOSE; Start 05/03/17 at 12: 45 Dextrose (D50w Syringe) 25 ml Q15M PRN IV DECREASED GLUCOSE Last administered on 05/03/17 12:48; Admin Dose 25 ML; Start 05/03/17 at 12:45 Dextrose (D50w Syringe) 50 ml Q15M PRN IV DECREASED GLUCOSE; Start 05/03/17 at 12:46 Glucagon (Glucagen) 1 mg Q15M PRN IM DECREASED GLUCOSE; Start 05/03/17 at 12:46 Glucose 15 gm 15 gm Q15M PRN BUCCAL DECREASED GLUCOSE; Start 05/03/17 at 12:46 Midazolam HCl 50 ml @ 1 mls/hr TITRATE IV Last administered on 05/21/17 19:44 ; Admin Dose 2 MLS/HR; Start 05/03/17 at 15:00 Dextrose/Sodium Chloride (D5-NS) 1,000 ml @ 20 mls/hr Q24H IV Last administered on 05/20/17 05:16; Admin Dose 20 MLS/HR; Start 05/03/17 at 16:00 Metoclopramide HCl (Reglan) 5 mg Q6 IV Last administered on 05/22/17 05:21; Admin Dose 5 MG; Start 05/04/17 at 12:00 Nystatin 5 ml 5 ml QID PO Last administered on 05/22/17 10:46; Admin Dose 5 ML ; Start 05/04/17 at 13:00 Fentanyl (Sublimaze) 100 ml @ 5 mls/hr TITRATE IV Last administered on 19:33; Admin Dose 5 MLS/HR; Start 05/06/17 at 08:30 Eye Lubricant (Akwa Oint) 1 applic Q4 PRN BOTH EYES dryness Last administered on 05/08/17 08:59; Admin Dose 1 APPLIC; Start 05/07/17 at 13:00 Miscellaneous Information (Pending [facility] Order For Wound Care) This patient otto... PRN PRN XX WOUND CARE; Start 05/07/17 at 13:30 Carvedilol (Coreg) 3.125 mg BID PO Last administered on 05/17/17 09:44; Admin Dose 3.125 MG; Start 05/09/17 at 21:00 Lisinopril (Zestril) 2.5 mg DAILY PO Last administered on 05/17/17 09:44; Admin Dose 2.5 MG; Start 05/10/17 at 09:00 Morphine Sulfate (morphine) 1 mg Q4H PRN IV pain Last administered on 21:15; Admin Dose 1 MG; Start 05/10/17 at 09:00 Scopolamine 1 patch 1 patch Q72H TRANSDERM Last administered on 05/20/17 17:23 ; Admin Dose 1 PATCH; Start 05/11/17 at 16:30 Sodium Chloride (NS) 1,000 ml @ 0 mls/hr Q0M PRN IV TO KEEP SBP ABOVE 90; Start 05/12/17 at 08:24 Amiodarone HCl 400 mg 400 mg DAILY NGT Last administered on 05/21/17 08:24; Admin Dose 400 MG; Start 05/16/17 at 09:00 Meropenem/Sodium Chloride 50 ml @ 100 mls/hr Q24H IVPB Last administered on 13:52; Admin Dose 100 MLS/HR; Start 05/19/17 at 13:00 Desmopressin Acetate/Sodium Chloride (Ddavp/NS) 53.75 ml @ 107.5 mls/ hr ONCE ONCE IVPB ; Start 05/22/17 at 17:00; Stop 05/22/17 at 17:29 Erythromycin Ethylsuccinate (E.e.s (Ped)) 225 mg Q6 PO Last administered on 10:46; Admin Dose 225 MG; Start 05/21/17 at 18:00; Stop 05/24/17 at 12: 01 CHACE DENNISON NP May 22, 2017 13:17
[2017-05-22] MEDS: MEROPENEM 500MG/50 ML (PMX) 50 ML IVPB SCH (13:20)
--- NOTE | 2017-05-22 14:15 | CONS ---
Date/Time of Note Date/Time of Note DATE: 05/22/17 TIME: 14:12 Assessment/Plan Assessment/Plan Additional Assessment/Plan Acute RI CAD s/p CABG Cardiogenic shock Ischemic cardiomyopathy Acute on chronic systolic heart failure Ventricular Tachycardia VDRF ESRD on HD Shock Liver Continue Amiodarone Continue antibiotics Continue Vent support Continue Coreg Continue Lisinopril HD as scheduled Anoxic encephalopathy Monitor in ICU Consultation Date/Type/Reason Admit Date/Time Apr 29, 2017 at 19:31 Initial Consult Date 05/02/17 Type of Consultation: ID Referring Provider: YENNY WINSTON MD Exam/Review of Systems Vital Signs Vitals Vital Signs Date Time Temp Pulse Resp B/P Pulse Ox O2 Delivery O2 Flow Rate FiO2 05/22/17 14:00 70 16 96/48 100 Mechanical Ventilator 05/22/17 12:00 99.0 05/22/17 11:20 30 Intake and Output 05/21/17 05/21/17 05/22/17 15:00 23:00 07:00 Intake Total 656 ml 196 ml 196 ml Output Total 0 ml 0 ml 0 ml Balance 656 ml 196 ml 196 ml Exam Gen Sedated and intubated CVS RRR, no m/r/g RS mechanical breath sounds heard b/l Abd BS present Ext No pedal edema Results Result Diagram: 05/21/17 04105/21/17 041 Medications Medications Current Medications Folic Acid (Folic Acid) 1 mg DAILY PO Last administered on 05/22/17 10:46; Admin Dose 1 MG; Start 04/30/17 at 09:00 Ondansetron HCl (Zofran Inj) 4 mg Q6H PRN IV NAUSEA AND/OR VOMITING Last administered on 05/03/17 23:24; Admin Dose 4 MG; Start 04/29/17 at 20:00 Nitroglycerin (Nitroglycerin (Sl Tab) 0.4 Mg) 1 tab Q5M PRN SL CHEST PAIN; Start 04/29/17 at 20:00 Acetaminophen (Tylenol Liquid) 650 mg Q6H PRN PO PAIN LEVEL 1-3 OR FEVER Last administered on 05/20/17 10:03; Admin Dose 650 MG; Start 04/29/17 at 20:00 Acetaminophen (Tylenol Tab) 650 mg Q6H PRN PO PAIN LEVEL 1-3 OR FEVER; Start at 20:00 Acetaminophen/ Hydrocodone Bitart ([place] (5/325)) 1 tab Q6H PRN PO PAIN LEVEL 4 -6 Last administered on 05/19/17 15:12; Admin Dose 1 TAB; Start 04/29/17 at 20: 00 Zolpidem Tartrate (Ambien) 5 mg QHS PRN PO INSOMNIA; Start 04/29/17 at 20:00 Docusate Sodium (Colace) 100 mg Q12H PRN PO CONSTIPATION; Start 04/29/17 at 20: 00 Bisacodyl (Dulcolax) 5 mg DAILY PRN PO CONSTIPATION; Start 04/29/17 at 20:00 Aspirin 325 mg 325 mg DAILY PO Last administered on 05/13/17 11:24; Admin Dose 325 MG; Start 04/30/17 at 09:00; Status Future Hold Vasopressin 60 unit/Dextrose 60 ml @ 1.2 mls/hr Q12H IV Last administered on 01:07; Admin Dose 2.4 MLS/HR; Start 04/30/17 at 13:00 Phenylephrine HCl 80 mg/Dextrose 250 ml @ 18.75 mls/ hr TITRATE IV Last administered on 05/04/17 09:57; Admin Dose 31.87 MLS/HR; Start 04/30/17 at 18: 00 Norepinephrine/ Dextrose (Levophed/D5W) 250 ml @ 0.46 mls/hr TITRATE IV Last administered on 05/19/17 08:24; Admin Dose 0.93 MLS/HR; Start 04/30/17 at 18:00 Pantoprazole (Protonix Iv) 40 mg BID@06,18 IV Last administered on 05/22/17 05 :21; Admin Dose 40 MG; Start 05/02/17 at 18:00 Diphenhydramine HCl 25 mg 25 mg Q4H PRN IV ITCHING Last administered on 18:01; Admin Dose 25 MG; Start 05/02/17 at 08:30 Dobutamine HCl/ Dextrose 250 ml @ 4.755 mls/ hr TITRATE IV Last administered on 05/07/17 05:21; Admin Dose 3.804 MLS/HR; Start 05/03/17 at 09:30 Miscellaneous Information 1 ea NOTE XX ; Start 05/03/17 at 13:00 Glucose (Glutose) 15 gm Q15M PRN PO DECREASED GLUCOSE; Start 05/03/17 at 12:45 Glucose (Glutose) 22.5 gm Q15M PRN PO DECREASED GLUCOSE; Start 05/03/17 at 12: 45 Dextrose (D50w Syringe) 25 ml Q15M PRN IV DECREASED GLUCOSE Last administered on 05/03/17 12:48; Admin Dose 25 ML; Start 05/03/17 at 12:45 Dextrose (D50w Syringe) 50 ml Q15M PRN IV DECREASED GLUCOSE; Start 05/03/17 at 12:46 Glucagon (Glucagen) 1 mg Q15M PRN IM DECREASED GLUCOSE; Start 05/03/17 at 12:46 Glucose 15 gm 15 gm Q15M PRN BUCCAL DECREASED GLUCOSE; Start 05/03/17 at 12:46 Midazolam HCl 50 ml @ 1 mls/hr TITRATE IV Last administered on 05/21/17 19:44 ; Admin Dose 2 MLS/HR; Start 05/03/17 at 15:00 Dextrose/Sodium Chloride (D5-NS) 1,000 ml @ 20 mls/hr Q24H IV Last administered on 05/20/17 05:16; Admin Dose 20 MLS/HR; Start 05/03/17 at 16:00 Metoclopramide HCl (Reglan) 5 mg Q6 IV Last administered on 05/22/17 13:21; Admin Dose 5 MG; Start 05/04/17 at 12:00 Nystatin 5 ml 5 ml QID PO Last administered on 05/22/17 13:22; Admin Dose 5 ML ; Start 05/04/17 at 13:00 Fentanyl (Sublimaze) 100 ml @ 5 mls/hr TITRATE IV Last administered on 19:33; Admin Dose 5 MLS/HR; Start 05/06/17 at 08:30 Eye Lubricant (Akwa Oint) 1 applic Q4 PRN BOTH EYES dryness Last administered on 05/08/17 08:59; Admin Dose 1 APPLIC; Start 05/07/17 at 13:00 Miscellaneous Information (Pending Santyl Order For Wound Care) This patient otto... PRN PRN XX WOUND CARE; Start 05/07/17 at 13:30 Carvedilol (Coreg) 3.125 mg BID PO Last administered on 05/17/17 09:44; Admin Dose 3.125 MG; Start 05/09/17 at 21:00 Lisinopril (Zestril) 2.5 mg DAILY PO Last administered on 05/17/17 09:44; Admin Dose 2.5 MG; Start 05/10/17 at 09:00 Morphine Sulfate (morphine) 1 mg Q4H PRN IV pain Last administered on 21:15; Admin Dose 1 MG; Start 05/10/17 at 09:00 Scopolamine 1 patch 1 patch Q72H TRANSDERM Last administered on 05/20/17 17:23 ; Admin Dose 1 PATCH; Start 05/11/17 at 16:30 Sodium Chloride (NS) 1,000 ml @ 0 mls/hr Q0M PRN IV TO KEEP SBP ABOVE 90; Start 05/12/17 at 08:24 Amiodarone HCl 400 mg 400 mg DAILY NGT Last administered on 05/21/17 08:24; Admin Dose 400 MG; Start 05/16/17 at 09:00 Meropenem/Sodium Chloride 50 ml @ 100 mls/hr Q24H IVPB Last administered on 13:20; Admin Dose 100 MLS/HR; Start 05/19/17 at 13:00 Desmopressin Acetate/Sodium Chloride (Ddavp/NS) 53.75 ml @ 107.5 mls/ hr ONCE ONCE IVPB ; Start 05/22/17 at 17:00; Stop 05/22/17 at 17:29 Erythromycin Ethylsuccinate (E.e.s (Ped)) 225 mg Q6 PO Last administered on 10:46; Admin Dose 225 MG; Start 05/21/17 at 18:00; Stop 05/24/17 at 12: 01 DENISSE HUNT M.D. May 22, 2017 14:15
--- NOTE | 2017-05-22 15:47 | PN ---
Date/Time of Note Date/Time of Note DATE: 05/22/17 TIME: 15:46 Assessment/Plan Lines/Catheters IV Catheter Type (from Nrsg): Central Line Campos in Place (from Nrsg): No Assessment/Plan Chief Complaint/Hosp Course IMPRESSION: Respiratory failure. RECOMMENDATIONS: We will proceed with placement of a tracheostomy when the family is agreeable. Problems: Subjective 24 Hr Interval Summary Constitutional: improved Pain Control: mild Exam/Review of Systems Vital Signs Vitals Vital Signs Date Time Temp Pulse Resp B/P Pulse Ox O2 Delivery O2 Flow Rate FiO2 05/22/17 14:00 70 16 96/48 100 Mechanical Ventilator 05/22/17 12:00 99.0 05/22/17 12:00 30 Intake and Output 05/21/17 05/21/17 05/22/17 15:00 23:00 07:00 Intake Total 656 ml 196 ml 224 ml Output Total 0 ml 0 ml 0 ml Balance 656 ml 196 ml 224 ml Exam Neck: non-tender, supple Respiratory: clear to auscultation, normal air movement Cardiovascular: nl pulses, regular rate and rhythm Results Result Diagram: 05/21/17 0410 05/21/17 0410 KATHARINA ALLISON MD May 22, 2017 15:47
[2017-05-22] MEDS: DEXTROSE 5%-0.9% NACL 1,000 ML IV SCH ×2 (16:00→23:27)
[2017-05-22] MEDS ORDERED: DESMOPRESSIN 15 MCG in SOD CHLORIDE 0.9% 50 ML IVPB ONE (17:00)
--- NOTE | 2017-05-22 17:50 | CONS ---
Date/Time of Note Date/Time of Note DATE: 05/22/17 TIME: 17:49 Assessment/Plan Assessment/Plan Additional Assessment/Plan IMPRESSION: 1. Gastrointestinal bleeding. No active bleeding at this point 2. History of esophageal stricture status post dilatation. 3. Status post coronary angiogram. 4. Renal failure on dialysis. 5. Thrombocytopenia. 6. Respiratory failure on vent. 7. Shock liver but now the liver function is back to normal. 8. Congestive heart failure, the ejection fraction is 35-40 percent. 9. Ventricular tachycardia, now in sinus rhythm on amiodarone. 10. Anemia, hematocrit remained stable PLAN: 1. Continue present care. 2. Transfuse on a needed basis, keep the hemoglobin above 8 or 9. 3. Keep the platelet count above 50,000 to prevent bleeding. 4. Avoid blood thinner for the time being. 5. Continue with beta-abdon and GUANACO inhibitor, and continue with proton pump inhibitor. 6. Patient could not be weaned off ventilator. He may require tracheostomy 7. No further bleeding noted as per the staff 8. Any all supportive care Consultation Date/Type/Reason Admit Date/Time Apr 29, 2017 at 19:31 Initial Consult Date 05/02/17 Type of Consultation: ID Referring Provider: YENNY WINSTON MD 24 HR Interval Summary Subjective hx not possible: pt non-verbal, pt critical Exam/Review of Systems Vital Signs Vitals Vital Signs Date Time Temp Pulse Resp B/P Pulse Ox O2 Delivery O2 Flow Rate FiO2 05/22/17 16:00 64 05/22/17 16:00 98.9 16 113/59 100 Mechanical Ventilator 05/22/17 15:10 30 Intake and Output 05/21/17 05/21/17 05/22/17 15:00 23:00 07:00 Intake Total 656 ml 196 ml 224 ml Output Total 0 ml 0 ml 0 ml Balance 656 ml 196 ml 224 ml Exam Respiratory: other (Is on vent) Gastrointestinal: nl liver, spleen, non-tender, soft Musculoskeletal: nl extremities to inspection, nl gait and stance Extremities: normal pulses Neurological: MINE INSPECTOR II-XII intact, nl mental status, nl speech, nl strength Results Result Diagram: 05/21/170 05/21/17409 Medications Medications Current Medications Folic Acid (Folic Acid) 1 mg DAILY PO Last administered on 05/22/17t 10:46; Admin Dose 1 MG; Start 04/30/17 at 09:00 Ondansetron HCl (Zofran Inj) 4 mg Q6H PRN IV NAUSEA AND/OR VOMITING Last administered on 05/03/17 23:24; Admin Dose 4 MG; Start 04/29/17 at 20:00 Nitroglycerin (Nitroglycerin (Sl Tab) 0.4 Mg) 1 tab Q5M PRN SL CHEST PAIN; Start 04/29/17 at 20:00 Acetaminophen (Tylenol Liquid) 650 mg Q6H PRN PO PAIN LEVEL 1-3 OR FEVER Last administered on 05/20/17 10:03; Admin Dose 650 MG; Start 04/29/17 at 20:00 Acetaminophen (Tylenol Tab) 650 mg Q6H PRN PO PAIN LEVEL 1-3 OR FEVER; Start at 20:00 Acetaminophen/ Hydrocodone Bitart ([place] (5/325)) 1 tab Q6H PRN PO PAIN LEVEL 4 -6 Last administered on 05/19/17 15:12; Admin Dose 1 TAB; Start 04/29/17 at 20: 00 Zolpidem Tartrate (Ambien) 5 mg QHS PRN PO INSOMNIA; Start 04/29/17 at 20:00 Docusate Sodium (Colace) 100 mg Q12H PRN PO CONSTIPATION; Start 04/29/17 at 20: 00 Bisacodyl (Dulcolax) 5 mg DAILY PRN PO CONSTIPATION; Start 04/29/17 at 20:00 Aspirin 325 mg 325 mg DAILY PO Last administered on 05/13/17 11:24; Admin Dose 325 MG; Start 04/30/17 at 09:00; Status Future Hold Vasopressin 60 unit/Dextrose 60 ml @ 1.2 mls/hr Q12H IV Last administered on 01:07; Admin Dose 2.4 MLS/HR; Start 04/30/17 at 13:00 Phenylephrine HCl 80 mg/Dextrose 250 ml @ 18.75 mls/ hr TITRATE IV Last administered on 05/04/17 09:57; Admin Dose 31.87 MLS/HR; Start 04/30/17 at 18: 00 Norepinephrine/ Dextrose (Levophed/D5W) 250 ml @ 0.46 mls/hr TITRATE IV Last administered on 05/19/17 08:24; Admin Dose 0.93 MLS/HR; Start 04/30/17 at 18:00 Pantoprazole (Protonix Iv) 40 mg BID@06,18 IV Last administered on 05/22/17 17 :33; Admin Dose 40 MG; Start 05/02/17 at 18:00 Diphenhydramine HCl 25 mg 25 mg Q4H PRN IV ITCHING Last administered on 18:01; Admin Dose 25 MG; Start 05/02/17 at 08:30 Dobutamine HCl/ Dextrose 250 ml @ 4.755 mls/ hr TITRATE IV Last administered on 05/07/17 05:21; Admin Dose 3.804 MLS/HR; Start 05/03/17 at 09:30 Miscellaneous Information 1 ea NOTE XX ; Start 05/03/17 at 13:00 Glucose (Glutose) 15 gm Q15M PRN PO DECREASED GLUCOSE; Start 05/03/17 at 12:45 Glucose (Glutose) 22.5 gm Q15M PRN PO DECREASED GLUCOSE; Start 05/03/17 at 12: 45 Dextrose (D50w Syringe) 25 ml Q15M PRN IV DECREASED GLUCOSE Last administered on 05/03/17 12:48; Admin Dose 25 ML; Start 05/03/17 at 12:45 Dextrose (D50w Syringe) 50 ml Q15M PRN IV DECREASED GLUCOSE; Start 05/03/17 at 12:46 Glucagon (Glucagen) 1 mg Q15M PRN IM DECREASED GLUCOSE; Start 05/03/17 at 12:46 Glucose 15 gm 15 gm Q15M PRN BUCCAL DECREASED GLUCOSE; Start 05/03/17 at 12:46 Midazolam HCl 50 ml @ 1 mls/hr TITRATE IV Last administered on 05/21/17 19:44 ; Admin Dose 2 MLS/HR; Start 05/03/17 at 15:00 Dextrose/Sodium Chloride (D5-NS) 1,000 ml @ 20 mls/hr Q24H IV Last administered on 05/20/17 05:16; Admin Dose 20 MLS/HR; Start 05/03/17 at 16:00 Nystatin 5 ml 5 ml QID PO Last administered on 05/22/17 17:33; Admin Dose 5 ML ; Start 05/04/17 at 13:00 Fentanyl (Sublimaze) 100 ml @ 5 mls/hr TITRATE IV Last administered on 19:33; Admin Dose 5 MLS/HR; Start 05/06/17 at 08:30 Eye Lubricant (Akwa Oint) 1 applic Q4 PRN BOTH EYES dryness Last administered on 05/08/17 08:59; Admin Dose 1 APPLIC; Start 05/07/17 at 13:00 Miscellaneous Information (Pending [facility] Order For Wound Care) This patient otto... PRN PRN XX WOUND CARE; Start 05/07/17 at 13:30 Carvedilol (Coreg) 3.125 mg BID PO Last administered on 05/17/17 09:44; Admin Dose 3.125 MG; Start 05/09/17 at 21:00 Lisinopril (Zestril) 2.5 mg DAILY PO Last administered on 05/17/17 09:44; Admin Dose 2.5 MG; Start 05/10/17 at 09:00 Morphine Sulfate (morphine) 1 mg Q4H PRN IV pain Last administered on 21:15; Admin Dose 1 MG; Start 05/10/17 at 09:00 Scopolamine 1 patch 1 patch Q72H TRANSDERM Last administered on 05/20/17 17:23 ; Admin Dose 1 PATCH; Start 05/11/17 at 16:30 Sodium Chloride (NS) 1,000 ml @ 0 mls/hr Q0M PRN IV TO KEEP SBP ABOVE 90; Start 05/12/17 at 08:24 Amiodarone HCl 400 mg 400 mg DAILY NGT Last administered on 05/21/17 08:24; Admin Dose 400 MG; Start 05/16/17 at 09:00 Meropenem/Sodium Chloride (Merrem 500mg/50 ml(Pmx)) 50 ml @ 100 mls/hr Q24H IVPB Last administered on 05/22/17 13:20; Admin Dose 100 MLS/HR; Start at 13:00 Erythromycin Ethylsuccinate (E.e.s (Ped)) 225 mg Q6 PO Last administered on 17:33; Admin Dose 225 MG; Start 05/21/17 at 18:00; Stop 05/24/17 at 12: 01 KASSI HOLLAND MD May 22, 2017 17:50
[2017-05-22] MEDS: NORepinephrine 32 MG in DEXTROSE 5% 218 ML IV SCH (19:37)
[2017-05-22] MEDS ORDERED: COLLAGENASE 30 GM TUBE TOP PRN (20:30)
[2017-05-22] MEDS: MIDAZOLAM (DRIP) 50 mg/50 mL 50 ML IV SCH (23:29)
[2017-05-22] MEDS: FENTAnyl (DRIP) 1000 mcg/100mL 100 ML IV SCH (23:30)
[2017-05-23] VITALS (48 sets, daily range): BP systolic 59–119; BP diastolic 33–71; PULSE 59–97; RESP 12–28
[2017-05-23] MEDS ORDERED: ETOMIDATE 20 MG INJ ONE
[2017-05-23] MEDS: VASOPRESSIN 60 UNIT in DEXTROSE 5% 57 ML IV SCH (00:30)
[2017-05-23] MEDS: ERYTHROMYCIN ETHYL SUCC (80 MG/ML PO SYG) PO SCH ×2 (00:31→06:15)
[2017-05-23] MEDS: IPRATROPIUM (HFA) 12.9 GM INHALER INH SCH ×2 (01:04→07:44)
[2017-05-23] MEDS: ALBUTEROL 18 GM INHALER INH SCH ×2 (01:04→07:44)
--- NOTE | 2017-05-23 05:22 | PN ---
DATE: 05/21/2017 SUBJECTIVE: No acute events overnight. The patient remains intubated, sedated, and in no distress. Family at bedside. Still with low-grade fevers, with a T-max of 99.8. VITAL SIGNS: T-current 99.7, pulse 66, respirations 16, blood pressure 88/42, saturation 100% on 30 FiO2. LABORATORY DATA: WBC 4, H and H of 9.6 and 29.4, platelets 72. INDWELLINGS: Right femoral triple-lumen catheter placed on admission, endotracheal tube, NG tube, l eft upper extremity AV fistula. ANTIMICROBIALS: The patient was started back on vancomycin and Merrem several days ago. PHYSICAL EXAMINATION GENERAL: This is a chronically ill-appearing, elderly man who is intubated, sedated, and in no dist ress. HEAD, EARS, EYES, NOSE, AND THROAT: Head atraumatic, normocephalic. Sclerae anicteric. Buccal muc conner dry. NECK: Supple. CHEST: Rise symmetrical. Breath sounds diminished to bases. HEART: S1 and S2. ABDOMEN: Soft. Bowel tones present. EXTREMITIES: With trace edema. ASSESSMENT 1. Ongoing sepsis. 2. Pneumonia. 3. Respiratory failure. 4. Coronary artery disease, status post acute myocardial infarction requiring left heart catheteriz ation on 05/13/2017. 5. End-stage renal disease, hemodialysis dependent. 6. History of coronary artery bypass graft. 7. Anemia. 8. Thrombocytopenia. PLAN: The patient remains unchanged, still with low-grade fevers. He is on broad spectrum antibiot ics pending line change. Family to decide regarding tracheostomy placement versus comfort care with terminal extubation. Dictated By: CHACE DENNISON REGISTRATION REPRESENTATIVE for JOSE BALLESTEROS MD NI/NTS Conf#: [id number] DID#: [id number] CC: YENNY WINSTON MD;*EndCC*
[2017-05-23] MEDS: PANTOPRAZOLE 40 MG INJ IV SCH (06:15)
[2017-05-23 06:34] LABS: ABNORMAL IP MESSAGE 1; EOSINOPHILS # 0.3 10^3/ul (0.0-0.5); EOSINOPHILS % 6.8 % (0.0-7.0); HEMATOCRIT 27.9 % (42.0-52.0); LYMPHOCYTES # 0.5 10^3/ul (0.8-2.9); LYMPHOCYTES % 11.7 % (15.0-51.0); MEAN CORPUSCULAR HGB CONC 32.3 g/dl (32.0-37.0); MEAN PLATELET VOLUME 12.4 fl (7.4-10.4); MONOCYTE # 0.6 10^3/ul (0.3-0.9); MONOCYTES % 14.8 % (0.0-11.0); NEUTROPHIL # 2.8 10^3/ul (1.6-7.5); POSITIVE DIFF @See below; RED CELL DISTRIBUTION WIDTH 18.2 % (11.5-14.5); WHITE BLOOD COUNT 4.3 10^3/ul (4.8-10.8)
[2017-05-23 06:36] LABS: PLATELET COUNT 47 10^3/UL (140-415)
[2017-05-23 07:08] LABS: ALBUMIN 2.6 g/dl (3.3-4.9); ALBUMIN/GLOBULIN RATIO 0.74; BILIRUBIN,DIRECT 0.1 mg/dl (0.00-0.20); BILIRUBIN,INDIRECT 0.4 mg/dl (0-1.1); BILIRUBIN,TOTAL 0.5 mg/dl (0.2-1.3); CREATININE 6.39 mg/dl (0.61-1.24); POTASSIUM 4.3 mmol/L (3.5-5.1); TOTAL PROTEIN 6.1 g/dl (6.1-8.1)
[2017-05-23] MEDS: FOLIC ACID 1 MG TAB PO SCH (09:00)
[2017-05-23] MEDS: BALSAM PERU/CASTOR OIL 60 GM TUBE TOP SCH (09:00)
[2017-05-23] MEDS: AMIODARONE 200 MG TAB NGT SCH (09:00)
[2017-05-23] MEDS: NYSTATIN SUSP 5 ML CUP PO SCH (09:00)
[2017-05-23] MEDS: LISINOPRIL 5 MG TAB PO SCH (09:00)
[2017-05-23] MEDS ORDERED: COLLAGENASE 30 GM TUBE TOP SCH (09:00)
--- NOTE | 2017-05-23 09:31 | PN ---
DATE: 05/22/2017 SUBJECTIVE: No acute events overnight. The patient is off pressors, lying comfortably in bed, intu bated, sedated. VITAL SIGNS: T-max 100.5, pulse 73, respirations 16, blood pressure 87/43, saturation 98% on vent. LABORATORIES: No labs this morning. INDWELLINGS: Endotracheal tube, NG tube, right femoral triple lumen catheter, left upper extremity AV fistula, pacemaker. ANTIMICROBIALS: Patient is on: 1. Vancomycin. 2. Merrem. 3. Erythromycin. PHYSICAL EXAMINATION: GENERAL: Fragile chronically ill-appearing elderly man in no distress. HEENT: Head atraumatic, normocephalic. Sclerae anicteric. Buccal mucosa dry. NECK: Supple. CHEST: Rise symmetrical. Breath sounds with bilateral scattered crackles. HEART: S1, S2. ABDOMEN: Soft, bowel tones present. EXTREMITIES: Without cyanosis. Bilateral trace edema. ASSESSMENT: 1. Sepsis with ongoing on and off fevers and requiring intermittent vasopressor support, currently off. 2. Healthcare-associated pneumonia. 3. End-stage renal disease. 4. Coronary artery disease, history of coronary artery bypass graft. 5. Acute myocardial infarction, status post left heart catheterization on 05/13/2017. 6. Anemia. 7. Thrombocytopenia. PLAN: The patient remains unchanged. He is on broad spectrum antibiotics, spiking low-grade fevers . Code status was changed to CHEMICAL CODE ONLY, possible transition to comfort care focus. Dictated By: CHACE DENNISON MANAGER MERCHANDISE for JOSE HUMPHREY/PHYLLIS Conf#: [id number] DID#: [id number]
[2017-05-23] MEDS ORDERED: morphine 4 MG/ML VIAL IV PRN (10:30)
--- NOTE | 2017-05-23 11:26 | CONS ---
Date/Time of Note Date/Time of Note DATE: 05/23/17 TIME: 11:21 Assessment/Plan Assessment/Plan Additional Assessment/Plan Ventilator setting; AC of 16, tidal volume 500, PEEP of 5, 30% FiO2. Patient currently on Levophed at 7.2 mics per minute, fentanyl 25 mics per hour , Versed 2 mg/h. Assessment and recommendations; 1. patient admitted with cardiogenic shock still requiring pressor support. 2. Pneumonia and sepsis. 3. Chronic renal failure, on hemodialysis. 4. Refractory shock. 5. Severe anemia and thrombocytopenia. 6. Upper GI bleed. 7. Status post coronary angiography with essentially negative findings. 8. Failure to be weaned from ventilator and one failure to handle extubation trial requiring reintubation in 48 hours. Continue supportive care. Family has opted for terminal extubation today. Prognosis is extremely poor on account of multiorgan failure. I did have a detailed discussion with the patient's family at bedside and answered all their questions. 35 minutes of critical care time was spent evaluating the patient. Consultation Date/Type/Reason Admit Date/Time Apr 29, 2017 at 19:31 Initial Consult Date 05/01/17 Type of Consultation: Pulmonary/critical care Referring Provider: YENNY WINSTON MD 24 HR Interval Summary Free Text/Dictation Patient's condition remains extremely critical. Still requiring high-dose pressor support for hypotension. General exam; elderly male, sedated, currently in no distress. Exam/Review of Systems Vital Signs Vitals Vital Signs Date Time Temp Pulse Resp B/P Pulse Ox O2 Delivery O2 Flow Rate FiO2 05/23/17 08:00 63 18 59/47 100 Mechanical Ventilator 05/23/17 04:25 30 05/23/17 04:00 98.6 Intake and Output 05/22/17 05/22/17 05/23/17 15:00 23:00 07:00 Intake Total 218 ml 188.57 ml 186.3 ml Output Total 0 ml 390 ml 300 ml Balance 218 ml -201.43 ml -113.7 ml Exam HEENT exam; supple neck, positive JVD. No lymphadenopathy. Midline trachea. Orally intubated. Patient has a multiple carious teeth. Bilateral intraocular lens implants are present. No active oral bleeding seen. Chest exam; diminished breath sounds bilaterally. S1-S2 audible, no murmurs. There is a well-healed sternal scar. Abdomen exam; soft, bowel sounds absent. No organomegaly felt. Extremities; trace edema. Multiple ecchymoses are present in all 4 extremities. [employer] exam; patient is sedated. Results Result Diagram: 05/23/1742905/23/17429 Results 24 hrs Laboratory Tests Test 05/23/17 04:30 White Blood Count 4.3 L Red Blood Count 3.00 L Hemoglobin 9.0 L Hematocrit 27.9 L Mean Corpuscular Volume 93.0 Mean Corpuscular Hemoglobin 30.0 Mean Corpuscular Hemoglobin Concent 32.3 Red Cell Distribution Width 18.2 H Platelet Count 47 #L Mean Platelet Volume 12.4 H Neutrophils % 66.0 Lymphocytes % 11.7 L Monocytes % 14.8 H Eosinophils % 6.8 Basophils % 0.0 Nucleated Red Blood Cells % 0.0 Neutrophils # 2.8 Lymphocytes # 0.5 L Monocytes # 0.6 Eosinophils # 0.3 Basophils # 0.0 Nucleated Red Blood Cells # 0.0 Sodium Level 142 Potassium Level 4.3 Chloride Level 106 Carbon Dioxide Level 26 Anion Gap 14 Blood Urea Nitrogen 79 H Creatinine 6.39 H Glucose Level 132 Calcium Level 8.0 L Total Bilirubin 0.5 Direct Bilirubin 0.10 Indirect Bilirubin 0.4 Aspartate Amino Transf (AST/SGOT) 30 Alanine Aminotransferase (ALT/SGPT) 37 Alkaline Phosphatase 90 Total Protein 6.1 Albumin 2.6 L Globulin 3.50 H Albumin/Globulin Ratio 0.74 Medications Medications Current Medications Folic Acid (Folic Acid) 1 mg DAILY PO Last administered on 05/23/17 09:00; Admin Dose 1 MG; Start 04/30/17 at 09:00 Ondansetron HCl (Zofran Inj) 4 mg Q6H PRN IV NAUSEA AND/OR VOMITING Last administered on 05/03/17 23:24; Admin Dose 4 MG; Start 04/29/17 at 20:00 Nitroglycerin (Nitroglycerin (Sl Tab) 0.4 Mg) 1 tab Q5M PRN SL CHEST PAIN; Start 04/29/17 at 20:00 Acetaminophen (Tylenol Liquid) 650 mg Q6H PRN PO PAIN LEVEL 1-3 OR FEVER Last administered on 05/20/17 10:03; Admin Dose 650 MG; Start 04/29/17 at 20:00 Acetaminophen (Tylenol Tab) 650 mg Q6H PRN PO PAIN LEVEL 1-3 OR FEVER; Start at 20:00 Acetaminophen/ Hydrocodone Bitart ([place] (5/325)) 1 tab Q6H PRN PO PAIN LEVEL 4 -6 Last administered on 05/19/17 15:12; Admin Dose 1 TAB; Start 04/29/17 at 20: 00 Zolpidem Tartrate (Ambien) 5 mg QHS PRN PO INSOMNIA; Start 04/29/17 at 20:00 Docusate Sodium (Colace) 100 mg Q12H PRN PO CONSTIPATION; Start 04/29/17 at 20: 00 Bisacodyl (Dulcolax) 5 mg DAILY PRN PO CONSTIPATION; Start 04/29/17 at 20:00 Aspirin 325 mg 325 mg DAILY PO Last administered on 05/13/17 11:24; Admin Dose 325 MG; Start 04/30/17 at 09:00; Status Future Hold Vasopressin 60 unit/Dextrose 60 ml @ 1.2 mls/hr Q12H IV Last administered on 01:07; Admin Dose 2.4 MLS/HR; Start 04/30/17 at 13:00 Phenylephrine HCl 80 mg/Dextrose 250 ml @ 18.75 mls/ hr TITRATE IV Last administered on 05/04/17 09:57; Admin Dose 31.87 MLS/HR; Start 04/30/17 at 18: 00 Norepinephrine/ Dextrose (Levophed/D5W) 250 ml @ 0.46 mls/hr TITRATE IV Last administered on 05/22/17 19:37; Admin Dose 0.93 MLS/HR; Start 04/30/17 at 18:00 Pantoprazole (Protonix Iv) 40 mg BID@06,18 IV Last administered on 05/23/17 06 :15; Admin Dose 40 MG; Start 05/02/17 at 18:00 Diphenhydramine HCl 25 mg 25 mg Q4H PRN IV ITCHING Last administered on 18:01; Admin Dose 25 MG; Start 05/02/17 at 08:30 Dobutamine HCl/ Dextrose 250 ml @ 4.755 mls/ hr TITRATE IV Last administered on 05/07/17 05:21; Admin Dose 3.804 MLS/HR; Start 05/03/17 at 09:30 Miscellaneous Information 1 ea NOTE XX ; Start 05/03/17 at 13:00 Glucose (Glutose) 15 gm Q15M PRN PO DECREASED GLUCOSE; Start 05/03/17 at 12:45 Glucose (Glutose) 22.5 gm Q15M PRN PO DECREASED GLUCOSE; Start 05/03/17 at 12: 45 Dextrose (D50w Syringe) 25 ml Q15M PRN IV DECREASED GLUCOSE Last administered on 05/03/17 12:48; Admin Dose 25 ML; Start 05/03/17 at 12:45 Dextrose (D50w Syringe) 50 ml Q15M PRN IV DECREASED GLUCOSE; Start 05/03/17 at 12:46 Glucagon (Glucagen) 1 mg Q15M PRN IM DECREASED GLUCOSE; Start 05/03/17 at 12:46 Glucose 15 gm 15 gm Q15M PRN BUCCAL DECREASED GLUCOSE; Start 05/03/17 at 12:46 Midazolam HCl 50 ml @ 1 mls/hr TITRATE IV Last administered on 05/22/17 23:29 ; Admin Dose 2 MLS/HR; Start 05/03/17 at 15:00 Dextrose/Sodium Chloride (D5-NS) 1,000 ml @ 20 mls/hr Q24H IV Last administered on 05/22/17 23:27; Admin Dose 20 MLS/HR; Start 05/03/17 at 16:00 Nystatin 5 ml 5 ml QID PO Last administered on 05/23/17 09:00; Admin Dose 5 ML ; Start 05/04/17 at 13:00 Fentanyl (Sublimaze) 100 ml @ 5 mls/hr TITRATE IV Last administered on 23:30; Admin Dose 5 MLS/HR; Start 05/06/17 at 08:30 Eye Lubricant (Akwa Oint) 1 applic Q4 PRN BOTH EYES dryness Last administered on 05/08/17 08:59; Admin Dose 1 APPLIC; Start 05/07/17 at 13:00 Carvedilol (Coreg) 3.125 mg BID PO Last administered on 05/17/17 09:44; Admin Dose 3.125 MG; Start 05/09/17 at 21:00 Lisinopril (Zestril) 2.5 mg DAILY PO Last administered on 05/17/17 09:44; Admin Dose 2.5 MG; Start 05/10/17 at 09:00 Morphine Sulfate (morphine) 1 mg Q4H PRN IV pain Last administered on 21:15; Admin Dose 1 MG; Start 05/10/17 at 09:00; Status Future Hold Scopolamine 1 patch 1 patch Q72H TRANSDERM Last administered on 05/20/17 17:23 ; Admin Dose 1 PATCH; Start 05/11/17 at 16:30 Sodium Chloride (NS) 1,000 ml @ 0 mls/hr Q0M PRN IV TO KEEP SBP ABOVE 90; Start 05/12/17 at 08:24 Amiodarone HCl 400 mg 400 mg DAILY NGT Last administered on 05/21/17 08:24; Admin Dose 400 MG; Start 05/16/17 at 09:00 Meropenem/Sodium Chloride (Merrem 500mg/50 ml(Pmx)) 50 ml @ 100 mls/hr Q24H IVPB Last administered on 05/22/17 13:20; Admin Dose 100 MLS/HR; Start at 13:00 Erythromycin Ethylsuccinate (E.e.s (Ped)) 225 mg Q6 PO Last administered on 06:15; Admin Dose 225 MG; Start 05/21/17 at 18:00; Stop 05/24/17 at 12: 01 Collagenase (Santyl) 1 applic DAILY TOP Last administered on 05/23/17 09:00; Admin Dose 1 APPLIC; Start 05/23/17 at 09:00 Collagenase (Santyl) 1 applic PRN PRN TOP WOUND CARE; Start 05/22/17 at 20:30 Morphine Sulfate (morphine) 4 mg Q1H PRN IV pain; Start 05/23/17 at 10:30 CHARLES EMMANUEL May 23, 2017 11:26
--- NOTE | 2017-05-23 12:03 | CONS ---
Date/Time of Note Date/Time of Note DATE: 05/23/17 TIME: 11:59 Assessment/Plan Assessment/Plan Chief Complaint/Hosp Course IMP: 1.Acute VT-now downtrended cardiac enzymes without signs of ongoing myocardial necrosis. Now s/p LHC with patent SVG to RCA and lytton Ramus/LAD. All other grafts occluded 2.Shock-on Levo 3.VT-now in SR on amio PO 4.resp failure s/p re-intubation 5.renal failure-on HD 6. Leukocytosis 7. Thrombocytopenia-again worsening 8. Shock liver-improving 9. CHF-systolic acute on chronic likely with EF 20% by intial Echo. Most recent echo 35-40% 10. Anemia- acute worsening, ? etiology RP bleed 11. Resp failure s/p exatubation Recc: -Continue ICU monitoring -Continue amio PO -Holding BB/ACEI while on levo -Follow platelet count and would continue to hold asa given anemia requiring transfusion and worsening platelet count requiring transfusion -F/U cx data and continue abx's -HD for volume removal as tolerated -s/p extubation and is chem code/DNI now? -Follow resp status closely Problems: Consultation Date/Type/Reason Admit Date/Time Apr 29, 2017 at 19:31 Initial Consult Date 05/02/17 Type of Consultation: Cardiology Reason for Consultation Acute VT Referring Provider: YENNY WINSTON MD Exam/Review of Systems Vital Signs Vitals Vital Signs Date Time Temp Pulse Resp B/P Pulse Ox O2 Delivery O2 Flow Rate FiO2 05/23/17 11:35 98 05/23/17 11:35 15.0 05/23/17 09:30 60 16 30 05/23/17 08:00 59/47 Mechanical Ventilator 05/23/17 04:00 98.6 Intake and Output 05/22/17 05/22/17 05/23/17 15:00 23:00 07:00 Intake Total 218 ml 188.57 ml 186.3 ml Output Total 0 ml 390 ml 300 ml Balance 218 ml -201.43 ml -113.7 ml Exam Review of Systems: CONSTITUTIONAL: No fevers, chills. PULMONARY: No sob CARDIOVASCULAR: No chest pain/palpitations GASTROINTESTINAL: No nausea/vomiting. GENITOURINARY: No hematuria/dysuria. MUSCULOSKELETAL: No myagias/arthalgias. PSYCHIATRIC: The patient denies depression. NEUROLOGIC: No weakness Constitutional: alert, oriented Psych: no complaints Head: normocephalic ENMT: mucosa pink and moist Neck: jvd (9-10 cm water), supple Respiratory: other (upper airway rhochi) Cardiovascular: regular rate and rhythm Gastrointestinal: non-tender, soft Musculoskeletal: muscle tone (norm) Extremities: other (Bilateral LE edema) Neurological: other (sedated) Results Result Diagram: 05/23/1742905/23/17 043 Results 24 hrs Laboratory Tests Test 05/23/17 04:30 White Blood Count 4.3 L Red Blood Count 3.00 L Hemoglobin 9.0 L Hematocrit 27.9 L Mean Corpuscular Volume 93.0 Mean Corpuscular Hemoglobin 30.0 Mean Corpuscular Hemoglobin Concent 32.3 Red Cell Distribution Width 18.2 H Platelet Count 47 #L Mean Platelet Volume 12.4 H Neutrophils % 66.0 Lymphocytes % 11.7 L Monocytes % 14.8 H Eosinophils % 6.8 Basophils % 0.0 Nucleated Red Blood Cells % 0.0 Neutrophils # 2.8 Lymphocytes # 0.5 L Monocytes # 0.6 Eosinophils # 0.3 Basophils # 0.0 Nucleated Red Blood Cells # 0.0 Sodium Level 142 Potassium Level 4.3 Chloride Level 106 Carbon Dioxide Level 26 Anion Gap 14 Blood Urea Nitrogen 79 H Creatinine 6.39 H Glucose Level 132 Calcium Level 8.0 L Total Bilirubin 0.5 Direct Bilirubin 0.10 Indirect Bilirubin 0.4 Aspartate Amino Transf (AST/SGOT) 30 Alanine Aminotransferase (ALT/SGPT) 37 Alkaline Phosphatase 90 Total Protein 6.1 Albumin 2.6 L Globulin 3.50 H Albumin/Globulin Ratio 0.74 Medications Medications Current Medications Folic Acid (Folic Acid) 1 mg DAILY PO Last administered on 05/23/17 09:00; Admin Dose 1 MG; Start 04/30/17 at 09:00 Ondansetron HCl (Zofran Inj) 4 mg Q6H PRN IV NAUSEA AND/OR VOMITING Last administered on 05/03/17 23:24; Admin Dose 4 MG; Start 04/29/17 at 20:00 Nitroglycerin (Nitroglycerin (Sl Tab) 0.4 Mg) 1 tab Q5M PRN SL CHEST PAIN; Start 04/29/17 at 20:00 Acetaminophen (Tylenol Liquid) 650 mg Q6H PRN PO PAIN LEVEL 1-3 OR FEVER Last administered on 05/20/17 10:03; Admin Dose 650 MG; Start 04/29/17 at 20:00 Acetaminophen (Tylenol Tab) 650 mg Q6H PRN PO PAIN LEVEL 1-3 OR FEVER; Start at 20:00 Acetaminophen/ Hydrocodone Bitart ([place] (5/325)) 1 tab Q6H PRN PO PAIN LEVEL 4 -6 Last administered on 05/19/17 15:12; Admin Dose 1 TAB; Start 04/29/17 at 20: 00 Zolpidem Tartrate (Ambien) 5 mg QHS PRN PO INSOMNIA; Start 04/29/17 at 20:00 Docusate Sodium (Colace) 100 mg Q12H PRN PO CONSTIPATION; Start 04/29/17 at 20: 00 Bisacodyl (Dulcolax) 5 mg DAILY PRN PO CONSTIPATION; Start 04/29/17 at 20:00 Aspirin 325 mg 325 mg DAILY PO Last administered on 05/13/17 11:24; Admin Dose 325 MG; Start 04/30/17 at 09:00; Status Future Hold Vasopressin 60 unit/Dextrose 60 ml @ 1.2 mls/hr Q12H IV Last administered on 01:07; Admin Dose 2.4 MLS/HR; Start 04/30/17 at 13:00 Phenylephrine HCl 80 mg/Dextrose 250 ml @ 18.75 mls/ hr TITRATE IV Last administered on 05/04/17 09:57; Admin Dose 31.87 MLS/HR; Start 04/30/17 at 18: 00 Norepinephrine/ Dextrose (Levophed/D5W) 250 ml @ 0.46 mls/hr TITRATE IV Last administered on 05/22/17 19:37; Admin Dose 0.93 MLS/HR; Start 04/30/17 at 18:00 Pantoprazole (Protonix Iv) 40 mg BID@06,18 IV Last administered on 05/23/17 06 :15; Admin Dose 40 MG; Start 05/02/17 at 18:00 Diphenhydramine HCl 25 mg 25 mg Q4H PRN IV ITCHING Last administered on 18:01; Admin Dose 25 MG; Start 05/02/17 at 08:30 Dobutamine HCl/ Dextrose 250 ml @ 4.755 mls/ hr TITRATE IV Last administered on 05/07/17 05:21; Admin Dose 3.804 MLS/HR; Start 05/03/17 at 09:30 Miscellaneous Information 1 ea NOTE XX ; Start 05/03/17 at 13:00 Glucose (Glutose) 15 gm Q15M PRN PO DECREASED GLUCOSE; Start 05/03/17 at 12:45 Glucose (Glutose) 22.5 gm Q15M PRN PO DECREASED GLUCOSE; Start 05/03/17 at 12: 45 Dextrose (D50w Syringe) 25 ml Q15M PRN IV DECREASED GLUCOSE Last administered on 05/03/17 12:48; Admin Dose 25 ML; Start 05/03/17 at 12:45 Dextrose (D50w Syringe) 50 ml Q15M PRN IV DECREASED GLUCOSE; Start 05/03/17 at 12:46 Glucagon (Glucagen) 1 mg Q15M PRN IM DECREASED GLUCOSE; Start 05/03/17 at 12:46 Glucose 15 gm 15 gm Q15M PRN BUCCAL DECREASED GLUCOSE; Start 05/03/17 at 12:46 Midazolam HCl 50 ml @ 1 mls/hr TITRATE IV Last administered on 05/22/17 23:29 ; Admin Dose 2 MLS/HR; Start 05/03/17 at 15:00 Dextrose/Sodium Chloride (D5-NS) 1,000 ml @ 20 mls/hr Q24H IV Last administered on 05/22/17 23:27; Admin Dose 20 MLS/HR; Start 05/03/17 at 16:00 Nystatin 5 ml 5 ml QID PO Last administered on 05/23/17 09:00; Admin Dose 5 ML ; Start 05/04/17 at 13:00 Fentanyl (Sublimaze) 100 ml @ 5 mls/hr TITRATE IV Last administered on 23:30; Admin Dose 5 MLS/HR; Start 05/06/17 at 08:30 Eye Lubricant (Akwa Oint) 1 applic Q4 PRN BOTH EYES dryness Last administered on 05/08/17 08:59; Admin Dose 1 APPLIC; Start 05/07/17 at 13:00 Carvedilol (Coreg) 3.125 mg BID PO Last administered on 05/17/17 09:44; Admin Dose 3.125 MG; Start 05/09/17 at 21:00 Lisinopril (Zestril) 2.5 mg DAILY PO Last administered on 05/17/17 09:44; Admin Dose 2.5 MG; Start 05/10/17 at 09:00 Morphine Sulfate (morphine) 1 mg Q4H PRN IV pain Last administered on 21:15; Admin Dose 1 MG; Start 05/10/17 at 09:00; Status Future Hold Scopolamine 1 patch 1 patch Q72H TRANSDERM Last administered on 05/20/17 17:23 ; Admin Dose 1 PATCH; Start 05/11/17 at 16:30 Sodium Chloride (NS) 1,000 ml @ 0 mls/hr Q0M PRN IV TO KEEP SBP ABOVE 90; Start 05/12/17 at 08:24 Amiodarone HCl 400 mg 400 mg DAILY NGT Last administered on 05/21/17 08:24; Admin Dose 400 MG; Start 05/16/17 at 09:00 Meropenem/Sodium Chloride (Merrem 500mg/50 ml(Pmx)) 50 ml @ 100 mls/hr Q24H IVPB Last administered on 05/22/17 13:20; Admin Dose 100 MLS/HR; Start at 13:00 Erythromycin Ethylsuccinate (E.e.s (Ped)) 225 mg Q6 PO Last administered on 06:15; Admin Dose 225 MG; Start 05/21/17 at 18:00; Stop 05/24/17 at 12: 01 Collagenase (Santyl) 1 applic DAILY TOP Last administered on 05/23/17 09:00; Admin Dose 1 APPLIC; Start 05/23/17 at 09:00 Collagenase (Santyl) 1 applic PRN PRN TOP WOUND CARE; Start 05/22/17 at 20:30 Morphine Sulfate (morphine) 4 mg Q1H PRN IV pain; Start 05/23/17 at 10:30 MARCO KENNEDY May 23, 2017 12:02
--- NOTE | 2017-05-23 12:22 | CONS ---
Date/Time of Note Date/Time of Note DATE: 05/23/17 TIME: 12:20 Consult Date/Type/Reason Admit Date/Time Apr 29, 2017 at 19:31 Initial Consult Date 05/02/17 Type of Consultation: ID Ordering Provider: YENNY WINSTON MD Objective Vital Signs Date Time Temp Pulse Resp B/P Pulse Ox O2 Delivery O2 Flow Rate FiO2 05/23/17 11:35 98 05/23/17 11:35 15.0 05/23/17 09:30 60 16 30 05/23/17 08:00 59/47 Mechanical Ventilator 05/23/17 04:00 98.6 Intake and Output 05/22/17 05/22/17 05/23/17 15:00 23:00 07:00 Intake Total 218 ml 188.57 ml 186.3 ml Output Total 0 ml 390 ml 300 ml Balance 218 ml -201.43 ml -113.7 ml Results/Medications Result Diagram: 05/23/17 0430 05/23/17 0430 Results 24 hrs Laboratory Tests Test 05/23/17 04:30 White Blood Count 4.3 L Red Blood Count 3.00 L Hemoglobin 9.0 L Hematocrit 27.9 L Mean Corpuscular Volume 93.0 Mean Corpuscular Hemoglobin 30.0 Mean Corpuscular Hemoglobin Concent 32.3 Red Cell Distribution Width 18.2 H Platelet Count 47 #L Mean Platelet Volume 12.4 H Neutrophils % 66.0 Lymphocytes % 11.7 L Monocytes % 14.8 H Eosinophils % 6.8 Basophils % 0.0 Nucleated Red Blood Cells % 0.0 Neutrophils # 2.8 Lymphocytes # 0.5 L Monocytes # 0.6 Eosinophils # 0.3 Basophils # 0.0 Nucleated Red Blood Cells # 0.0 Sodium Level 142 Potassium Level 4.3 Chloride Level 106 Carbon Dioxide Level 26 Anion Gap 14 Blood Urea Nitrogen 79 H Creatinine 6.39 H Glucose Level 132 Calcium Level 8.0 L Total Bilirubin 0.5 Direct Bilirubin 0.10 Indirect Bilirubin 0.4 Aspartate Amino Transf (AST/SGOT) 30 Alanine Aminotransferase (ALT/SGPT) 37 Alkaline Phosphatase 90 Total Protein 6.1 Albumin 2.6 L Globulin 3.50 H Albumin/Globulin Ratio 0.74 Medications Current Medications Folic Acid (Folic Acid) 1 mg DAILY PO Last administered on 05/23/17t 09:00; Admin Dose 1 MG; Start 04/30/17 at 09:00 Ondansetron HCl (Zofran Inj) 4 mg Q6H PRN IV NAUSEA AND/OR VOMITING Last administered on 05/03/17 23:24; Admin Dose 4 MG; Start 04/29/17 at 20:00 Nitroglycerin (Nitroglycerin (Sl Tab) 0.4 Mg) 1 tab Q5M PRN SL CHEST PAIN; Start 04/29/17 at 20:00 Acetaminophen (Tylenol Liquid) 650 mg Q6H PRN PO PAIN LEVEL 1-3 OR FEVER Last administered on 05/20/17 10:03; Admin Dose 650 MG; Start 04/29/17 at 20:00 Acetaminophen (Tylenol Tab) 650 mg Q6H PRN PO PAIN LEVEL 1-3 OR FEVER; Start at 20:00 Acetaminophen/ Hydrocodone Bitart ([place] (5/325)) 1 tab Q6H PRN PO PAIN LEVEL 4 -6 Last administered on 05/19/17 15:12; Admin Dose 1 TAB; Start 04/29/17 at 20: 00 Zolpidem Tartrate (Ambien) 5 mg QHS PRN PO INSOMNIA; Start 04/29/17 at 20:00 Docusate Sodium (Colace) 100 mg Q12H PRN PO CONSTIPATION; Start 04/29/17 at 20: 00 Bisacodyl (Dulcolax) 5 mg DAILY PRN PO CONSTIPATION; Start 04/29/17 at 20:00 Aspirin 325 mg 325 mg DAILY PO Last administered on 05/13/17 11:24; Admin Dose 325 MG; Start 04/30/17 at 09:00; Status Future Hold Vasopressin 60 unit/Dextrose 60 ml @ 1.2 mls/hr Q12H IV Last administered on 01:07; Admin Dose 2.4 MLS/HR; Start 04/30/17 at 13:00 Phenylephrine HCl 80 mg/Dextrose 250 ml @ 18.75 mls/ hr TITRATE IV Last administered on 05/04/17 09:57; Admin Dose 31.87 MLS/HR; Start 04/30/17 at 18: 00 Norepinephrine/ Dextrose (Levophed/D5W) 250 ml @ 0.46 mls/hr TITRATE IV Last administered on 05/22/17 19:37; Admin Dose 0.93 MLS/HR; Start 04/30/17 at 18:00 Pantoprazole (Protonix Iv) 40 mg BID@06,18 IV Last administered on 05/23/17 06 :15; Admin Dose 40 MG; Start 05/02/17 at 18:00 Diphenhydramine HCl 25 mg 25 mg Q4H PRN IV ITCHING Last administered on 18:01; Admin Dose 25 MG; Start 05/02/17 at 08:30 Dobutamine HCl/ Dextrose 250 ml @ 4.755 mls/ hr TITRATE IV Last administered on 05/07/17 05:21; Admin Dose 3.804 MLS/HR; Start 05/03/17 at 09:30 Miscellaneous Information 1 ea NOTE XX ; Start 05/03/17 at 13:00 Glucose (Glutose) 15 gm Q15M PRN PO DECREASED GLUCOSE; Start 05/03/17 at 12:45 Glucose (Glutose) 22.5 gm Q15M PRN PO DECREASED GLUCOSE; Start 05/03/17 at 12: 45 Dextrose (D50w Syringe) 25 ml Q15M PRN IV DECREASED GLUCOSE Last administered on 05/03/17 12:48; Admin Dose 25 ML; Start 05/03/17 at 12:45 Dextrose (D50w Syringe) 50 ml Q15M PRN IV DECREASED GLUCOSE; Start 05/03/17 at 12:46 Glucagon (Glucagen) 1 mg Q15M PRN IM DECREASED GLUCOSE; Start 05/03/17 at 12:46 Glucose 15 gm 15 gm Q15M PRN BUCCAL DECREASED GLUCOSE; Start 05/03/17 at 12:46 Midazolam HCl 50 ml @ 1 mls/hr TITRATE IV Last administered on 05/22/17 23:29 ; Admin Dose 2 MLS/HR; Start 05/03/17 at 15:00 Dextrose/Sodium Chloride (D5-NS) 1,000 ml @ 20 mls/hr Q24H IV Last administered on 05/22/17 23:27; Admin Dose 20 MLS/HR; Start 05/03/17 at 16:00 Nystatin 5 ml 5 ml QID PO Last administered on 05/23/17 09:00; Admin Dose 5 ML ; Start 05/04/17 at 13:00 Fentanyl (Sublimaze) 100 ml @ 5 mls/hr TITRATE IV Last administered on 23:30; Admin Dose 5 MLS/HR; Start 05/06/17 at 08:30 Eye Lubricant (Akwa Oint) 1 applic Q4 PRN BOTH EYES dryness Last administered on 05/08/17 08:59; Admin Dose 1 APPLIC; Start 05/07/17 at 13:00 Carvedilol (Coreg) 3.125 mg BID PO Last administered on 05/17/17 09:44; Admin Dose 3.125 MG; Start 05/09/17 at 21:00 Lisinopril (Zestril) 2.5 mg DAILY PO Last administered on 05/17/17 09:44; Admin Dose 2.5 MG; Start 05/10/17 at 09:00 Morphine Sulfate (morphine) 1 mg Q4H PRN IV pain Last administered on 21:15; Admin Dose 1 MG; Start 05/10/17 at 09:00; Status Future Hold Scopolamine 1 patch 1 patch Q72H TRANSDERM Last administered on 05/20/17 17:23 ; Admin Dose 1 PATCH; Start 05/11/17 at 16:30 Sodium Chloride (NS) 1,000 ml @ 0 mls/hr Q0M PRN IV TO KEEP SBP ABOVE 90; Start 05/12/17 at 08:24 Amiodarone HCl 400 mg 400 mg DAILY NGT Last administered on 05/21/17 08:24; Admin Dose 400 MG; Start 05/16/17 at 09:00 Meropenem/Sodium Chloride (Merrem 500mg/50 ml(Pmx)) 50 ml @ 100 mls/hr Q24H IVPB Last administered on 05/22/17 13:20; Admin Dose 100 MLS/HR; Start at 13:00 Erythromycin Ethylsuccinate (E.e.s (Ped)) 225 mg Q6 PO Last administered on 06:15; Admin Dose 225 MG; Start 05/21/17 at 18:00; Stop 05/24/17 at 12: 01 Collagenase (Santyl) 1 applic DAILY TOP Last administered on 05/23/17 09:00; Admin Dose 1 APPLIC; Start 05/23/17 at 09:00 Collagenase (Santyl) 1 applic PRN PRN TOP WOUND CARE; Start 05/22/17 at 20:30 Morphine Sulfate (morphine) 4 mg Q1H PRN IV pain Last administered on t 11:40; Admin Dose 4 MG; Start 05/23/17 at 10:30 Assessment/Plan Chief Complaint/Hosp Course SUBJECTIVE: No acute events overnight. The patient is lying comfortably in bed, family at bedside, pending terminal extubation VITAL SIGNS: T-max 100.5, pulse 73, respirations 16, blood pressure 87/43, saturation 98% on vent. INDWELLINGS: Endotracheal tube, NG tube, right femoral triple lumen catheter, left upper extremity AV fistula, pacemaker. ANTIMICROBIALS: Patient is on: 1. Vancomycin. 2. Merrem. 3. Erythromycin. PHYSICAL EXAMINATION: GENERAL: Fragile chronically ill-appearing elderly man in no distress. HEENT: Head atraumatic, normocephalic. Sclerae anicteric. Buccal mucosa dry. NECK: Supple. CHEST: Rise symmetrical. Breath sounds with bilateral scattered crackles. HEART: S1, S2. ABDOMEN: Soft, bowel tones present. EXTREMITIES: Without cyanosis. Bilateral trace edema. ASSESSMENT: 1. Sepsis with ongoing on and off fevers and requiring intermittent vasopressor support 2. Healthcare-associated pneumonia. 3. End-stage renal disease. 4. Coronary artery disease, history of coronary artery bypass graft. 5. Acute myocardial infarction, status post left heart catheterization on 05/13. 6. Anemia. 7. Thrombocytopenia. PLAN: The patient remains unchanged. Prognosis poor, pending terminal extubation DW staff Problems: CHACE DENNISON NP May 23, 2017 12:22
--- NOTE | 2017-05-23 12:57 | EN ---
Date/Time of Note Date/Time of Note DATE: 05/23/17 TIME: 12:56 ER Progress Note I was called to the ICU for 87-year-old male who was found to be pulseless. Per report of the patient's nurse, the patient had an advanced directive indicating that he did not want to have CPR performed. Nurses stated that the daughter had requested all other interventions short of CPR. I confirmed that the patient was in asystole on the monitor. The patient had been administered 1 amp of epinephrine. He remained pulseless and apneic. There is no evidence of neurologic function. He was therefore pronounced . TIFFANIE MUNOZ MD May 23, 2017 12:57
--- NOTE | 2017-05-23 14:34 | PN ---
Date/Time of Note Date/Time of Note DATE: 05/23/17 TIME: 14:33 Assessment/Plan Lines/Catheters IV Catheter Type (from Nrsg): Central Line Campos in Place (from Nrsg): No Assessment/Plan Chief Complaint/Hosp Course IMPRESSION: Respiratory failure. RECOMMENDATIONS: We will proceed with placement of a tracheostomy when the family is agreeable. Problems: Subjective 24 Hr Interval Summary Constitutional: improved Pain Control: mild Exam/Review of Systems Vital Signs Vitals Vital Signs Date Time Temp Pulse Resp B/P Pulse Ox O2 Delivery O2 Flow Rate FiO2 05/23/17 12:00 97 05/23/17 11:35 98 05/23/17 11:35 15.0 05/23/17 09:30 16 30 05/23/17 08:00 59/47 Mechanical Ventilator 05/23/17 04:00 98.6 Intake and Output 05/22/17 05/22/17 05/23/17 15:00 23:00 07:00 Intake Total 218 ml 188.57 ml 186.3 ml Output Total 0 ml 390 ml 300 ml Balance 218 ml -201.43 ml -113.7 ml Exam Neck: non-tender, supple Respiratory: clear to auscultation, normal air movement Cardiovascular: nl pulses, regular rate and rhythm Gastrointestinal: nl liver, spleen, non-tender, soft Results Result Diagram: 05/23/1742905/23/17429 KATHARINA ALLISON MD May 23, 2017 14:34
[2017-05-24 22:37] LABS: HEPARIN INDUCED PLATELET AB NEGATIVE (NEGATIVE)
--- NOTE | 2017-05-31 20:45 | QN ---
Documentation Comment [id number] YENNY WINSTON MD May 31, 2017 20:45
== END 2017-05-23 12:47 | disposition expired | DRG 870 ==
LOC: E/R 18:04 → ICU 19:31
PROVIDERS: ADMIT Internal Medicine Nephrology; ATTEND Internal Medicine Nephrology
PROC: 06HY33Z Insertion of Infusion Device into Lower Vein, Percutaneous Approach (ICD-10-PCS; principal; 2017-04-29)
PROC: 5A1955Z Respiratory Ventilation, Greater than 96 Consecutive Hours (ICD-10-PCS; 2017-04-29)
PROC: 0BH17EZ Insertion of Endotracheal Airway into Trachea, Via Natural or Artificial Opening (ICD-10-PCS; 2017-04-29)
PROC: 5A2204Z Restoration of Cardiac Rhythm, Single (ICD-10-PCS; 2017-04-29)
PROC: 5A1D70Z Performance of Urinary Filtration, Intermittent, Less than 6 Hours Per Day (ICD-10-PCS; 2017-05-01)
PROC: 30233N1 Transfusion of Nonautologous Red Blood Cells into Peripheral Vein, Percutaneous Approach (ICD-10-PCS; 2017-05-02)
PROC: 30233R1 Transfusion of Nonautologous Platelets into Peripheral Vein, Percutaneous Approach (ICD-10-PCS; 2017-05-02)
PROC: 0BH17EZ Insertion of Endotracheal Airway into Trachea, Via Natural or Artificial Opening (ICD-10-PCS; 2017-05-12)
PROC: 5A1945Z Respiratory Ventilation, 24-96 Consecutive Hours (ICD-10-PCS; 2017-05-12)
PROC: 4A023N7 Measurement of Cardiac Sampling and Pressure, Left Heart, Percutaneous Approach (ICD-10-PCS; 2017-05-13)
PROC: B211YZZ Fluoroscopy of Multiple Coronary Arteries using Other Contrast (ICD-10-PCS; 2017-05-13)
PROC: B212YZZ Fluoroscopy of Single Coronary Artery Bypass Graft using Other Contrast (ICD-10-PCS; 2017-05-13)
PROC: B215YZZ Fluoroscopy of Left Heart using Other Contrast (ICD-10-PCS; 2017-05-13)
PROC: B310YZZ Fluoroscopy of Thoracic Aorta using Other Contrast (ICD-10-PCS; 2017-05-13)
PROC: B31NYZZ Fluoroscopy of Other Upper Arteries using Other Contrast (ICD-10-PCS; 2017-05-13)
DX: A40.8 Other streptococcal sepsis (principal); I21.3 ST elevation (STEMI) myocardial infarction of unspecified site; K72.00 Acute and subacute hepatic failure without coma; J96.01 Acute respiratory failure with hypoxia; R57.0 Cardiogenic shock; R65.21 Severe sepsis with septic shock; N18.6 End stage renal disease; I47.2 Ventricular tachycardia; D69.59 Other secondary thrombocytopenia; I50.23 Acute on chronic systolic (congestive) heart failure; J18.9 Pneumonia, unspecified organism; I13.2 Hypertensive heart and chronic kidney disease with heart failure and with stage 5 chronic kidney disease, or end stage renal disease; E87.2 Acidosis; I82.621 Acute embolism and thrombosis of deep veins of right upper extremity; K92.2 Gastrointestinal hemorrhage, unspecified; I25.10 Atherosclerotic heart disease of native coronary artery without angina pectoris; I25.810 Atherosclerosis of coronary artery bypass graft(s) without angina pectoris; R13.10 Dysphagia, unspecified; D64.9 Anemia, unspecified; E11.22 Type 2 diabetes mellitus with diabetic chronic kidney disease; K21.9 Gastro-esophageal reflux disease without esophagitis; K80.80 Other cholelithiasis without obstruction; I25.5 Ischemic cardiomyopathy; Z95.1 Presence of aortocoronary bypass graft; Z99.2 Dependence on renal dialysis; Z85.21 Personal history of malignant neoplasm of larynx
CPT/HCPCS: 31500; 36200; 36415; 36430; 36600; 71010; 74176; 76937; 80048; 80053; 80061; 80162; 80202; 82270; 82550; 82553; 82803; 82962; 83605; 83615; 83690; 83735; 84100; 84484; 85014; 85018; 85025; 85049; 85362; 85378; 85384; 85610; 85670; 85730; 86022; 86644; 86850; 86900; 86901; 86920; 86945; 87040; 87070; 87081; 89220; 90935; 93005; 93306; 93308; 93459; 93971; 94002; 94003; 94640; 94664; 94770; 96374; 96375; J1250; C1760; C1887; C1894; C9113; J0171; J0282; J0692; J0696; J1200; J1644; J1650; J2185; J2270; J2370; J2405; J2543; J2597; J2765; J2920; J3010; J3370; J3475; J7030; J7040; J7042; J7060; J7070; P9016; P9035; P9047; Q9967